=== PATIENT | female | born 1995 | race Caucasian/White ===

== ENCOUNTER → 2023-09-22 10:05 | Outpatient (REF) | payer OTHER, SELFPAY | LOC: RAD 10:05 | PROVIDERS: ATTENDING PHYSICIAN Internal Medicine Rheumatology; FAMILY PHYSICIAN Physician Assistant Medical | DX: Z13.820 Encounter for screening for osteoporosis (principal) | CPT/HCPCS: 77080 ==

== ENCOUNTER → 2023-10-13 06:36 | Day surgery (SDC) | payer OTHER, SELFPAY | LOC: GI 06:36 | PROVIDERS: ATTENDING PHYSICIAN Internal Medicine Gastroenterology; FAMILY PHYSICIAN Physician Assistant Medical | DX: K50.819 Crohn's disease of both small and large intestine with unspecified complications (principal); K90.0 Celiac disease; K52.89 Other specified noninfective gastroenteritis and colitis; K29.50 Unspecified chronic gastritis without bleeding | CPT/HCPCS: 45380; 43239; 88305; 88342 ==

== ENCOUNTER 2024-01-15 06:50 | Emergency (ER) | payer OTHER, SELFPAY ==
[2024-01-15 06:53] VITALS: BP 122/82
[2024-01-15] MEDS: MORPHINE SULFATE 4 MG IV (07:59)
--- NOTE | 2024-01-15 08:04 | ED.GENMED ---
History of Present Illness
<Alphonso Garibay PA-C - Last Filed: 01/15/24 14:36>
General
Chief Complaint: Back Pain
Source: patient
Exam Limitations: none
Time Seen by Provider: 01/15/24 07:22
History of Present Illness
History of Present Illness:
28-year-old female with history of Crohn's disease on Remicade infusions every 6 weeks. Last infusion was almost 3 weeks ago. She also has chronic joint pain. She presents with think lower back pain. This has been getting worse over the past 2
weeks. She went to the chiropractor 2 days ago and has had increased pain to the lower back since then. The pain is made worse with motion leaning forward and moving her neck. She notes associated headache and chills. She also notes cough with
green mucus. She does not get fevers. She notes at times difficulty urinating. She denies any leg pain associated with this. No perianal anesthesia.
Past History
<Alphonso Garibay PA-C - Last Filed: 01/15/24 14:36>
Past History
ED Past Medical History: Other (Crohn's disease, celiac, IBS)
ED Past Surgical History: Orthopedic and Other (Bowel surgery)
Social History
Tobacco: Non-smoker
Alcohol: Occasional
Drug: None
Personal: Single
Living: with family
Employment: Employed
Family History
Family History: Other (her dads mother had Juvenile RA, mother has palpitations)
Phy Exam
<Alphonso Garibay PA-C - Last Filed: 01/15/24 14:36>
Physical Exam
Physical Exam:
General: Well-appearing female no acute respiratory distress
HEENT: Normocephalic atraumatic
Heart: Tachycardic but regular
Lungs: Clear no wheeze
Abdomen is soft nontender nondistended
Musculoskeletal exam: The patient is tender to the lower lumbar spine there is mild overlying soft tissue swelling. No overlying erythema. No nuchal rigidity
Skin is warm no rash
Neurologic: Alert and oriented slight tremor noted no meningeal signs
Course
<Alphonso Garibay PA-C - Last Filed: 01/15/24 14:36>
Orders/Labs/Results
Orders:
Orders
01/15/24 07:35
Morphine Sulfate 4 mg IV NOW STA
CR Lumbar Spine 2 Or 3 Views Urgent
Comment:
Reason For Exam: low back pain
01/15/24 07:36
CR Chest - 2 Views Urgent
Comment:
Reason For Exam: cough
01/15/24 07:55
CRP [C-Reactive Protein] Urgent
Complete Blood Count/With Diff Urgent
Comprehensive Metabolic Panel Urgent
Sed Rate [Erythrocyte Sed Rate] Stat
01/15/24 08:34
Morphine Sulfate 8 mg IV NOW STA
01/15/24 08:45
Urinalysis Reflex To Culture Urgent
Date Specimen was Collected: 01/15/24
Time Specimen was Collected: 08:37
Urine Microscopic Reflex Cult Urgent
01/15/24 10:59
diazePAM [Valium Injection] 5 mg IV NOW STA
Abnormal Lab Results
01/15/24 01/15/24
07:55 08:45
Hct 36.7 L %
(37.0-47.0)
MPV 12.5 H fL
(7.4-10.4)
Absolute Monos (auto) 0.7 H 10^3/uL
(0.1-0.6)
Absolute Eos (auto) 0.8 H 10^3/uL
(0-0.7)
Neutrophils % 35.0 L %
(42.2-75.2)
Monocytes % 9.5 H %
(1.7-9.3)
Eosinophils % 11.6 H %
(0-6)
BUN 22 H mg/dl
(7-17)
AST 41 H U/L
(14-36)
Leukocyte Esterase Rfl Trace A
(Negative)
01/15/24 07:55
01/15/24 07:55
Vital Signs
Initial and Last Documented VS:
Initial Vital Signs
Temp Pulse Resp BP Pulse Ox
97.9 F 118 18 122/82 100
01/15/24 06:53 01/15/24 06:53 01/15/24 06:53 01/15/24 06:53 01/15/24 06:53
Last Documented Vital Signs
Temp Pulse Resp BP Pulse Ox
97.9 F 91 18 110/78 99
01/15/24 06:53 01/15/24 13:48 01/15/24 13:48 01/15/24 13:48 01/15/24 13:48
<Brenden Anderson, DO - Last Filed: 01/15/24 14:39>
Orders/Labs/Results
Orders:
Orders
01/15/24 07:35
Morphine Sulfate 4 mg IV NOW STA
CR Lumbar Spine 2 Or 3 Views Urgent
Comment:
Reason For Exam: low back pain
01/15/24 07:36
CR Chest - 2 Views Urgent
Comment:
Reason For Exam: cough
01/15/24 07:55
CRP [C-Reactive Protein] Urgent
Complete Blood Count/With Diff Urgent
Comprehensive Metabolic Panel Urgent
Sed Rate [Erythrocyte Sed Rate] Stat
01/15/24 08:34
Morphine Sulfate 8 mg IV NOW STA
01/15/24 08:45
Urinalysis Reflex To Culture Urgent
Date Specimen was Collected: 01/15/24
Time Specimen was Collected: 08:37
Urine Microscopic Reflex Cult Urgent
01/15/24 10:59
diazePAM [Valium Injection] 5 mg IV NOW STA
Abnormal Lab Results
01/15/24 01/15/24
07:55 08:45
Hct 36.7 L %
(37.0-47.0)
MPV 12.5 H fL
(7.4-10.4)
Absolute Monos (auto) 0.7 H 10^3/uL
(0.1-0.6)
Absolute Eos (auto) 0.8 H 10^3/uL
(0-0.7)
Neutrophils % 35.0 L %
(42.2-75.2)
Monocytes % 9.5 H %
(1.7-9.3)
Eosinophils % 11.6 H %
(0-6)
BUN 22 H mg/dl
(7-17)
AST 41 H U/L
(14-36)
Leukocyte Esterase Rfl Trace A
(Negative)
01/15/24 07:55
01/15/24 07:55
Vital Signs
Initial and Last Documented VS:
Initial Vital Signs
Temp Pulse Resp BP Pulse Ox
97.9 F 118 18 122/82 100
01/15/24 06:53 01/15/24 06:53 01/15/24 06:53 01/15/24 06:53 01/15/24 06:53
Last Documented Vital Signs
Temp Pulse Resp BP Pulse Ox
97.9 F 91 18 110/78 99
01/15/24 06:53 01/15/24 13:48 01/15/24 13:48 01/15/24 13:48 01/15/24 13:48
Billlt;Alphonso Garibay PA-C - Last Filed: 01/15/24 14:36>
MDM/Problems Addressed
Differential Diagnosis Includes:
Patient with lower back pain cough chills. Consider viral illness versus lumbar strain. Will check for pneumonia with chest x-ray x-rays lumbar spine pending as well. Patient overall nontoxic do not suspect meningitis. No signs of cauda equina.
Labs pending including inflammatory markers urinalysis.
<Alphonso Garibay PA-C - Last Filed: 01/15/24 14:36>
*Critical Care Note
Total Time (30-74mins, 75-104mins- exclusive of procedures): Not Applicable
<Alphonso Garibay PA-C - Last Filed: 01/15/24 14:36>
Update Note
Update Note:
Patient reevaluated multiple times. Inflammatory markers negative x-ray of chest and back negative. Urinalysis negative. Patient overall nontoxic no meningeal signs no need for lumbar puncture. Discussed with emergency room attending saw the
patient as well. Lumbar strain or spasm as source of discomfort. Will add Valium to her regimen. Stable for discharge with follow-up
ED Attending Note
<Alphonso Garibay PA-C - Last Filed: 01/15/24 14:36>
-
Portions of this chart may have been created with voice recognition software.� Occasional wrong word or��sound alike� substitutions may have occurred due to the inherent limitations of voice recognition software.
<Brenden Anderson DO - Last Filed: 01/15/24 14:39>
ED Attending Note
Patient seen and examined by attending physician: Yes
I performed a history and physical exam of patient and discussed management with resident, I reviewed resident's note and agree with documented findings and plan of care.: Yes
ED Attending Note:
Patient is a most unfortunate 28-year-old female with a medical history of Crohn's disease and undiagnosed joint pains as well as chronic pain requiring chronic narcotic use and presents with increasing low back pain over the past few weeks but
worse over the past 2 days. Patient states he gets worse with sitting forward and bending. Patient denies incontinence. Patient denies radiation of the pain into her lower extremities. Patient denies numbness or paresthesias. Patient denies
fever or chills. Patient denies any GI or symptoms. Patient's workup is essentially unremarkable. On physical exam patient is mildly tender in the L4 L5-S1 region. Patient's hips are full range of motion. Patient's neurology exam is
unremarkable. As is her heart, lungs and abdomen exam. Labs reviewed. As well as x-rays. Patient be treated symptomatically and referred back to her doctor and her doctor for rare diseases that she is to see in [place].
Discharge Plan
Departure
Patient Disposition: Home (Routine Discharge)
Date of Disposition: 01/15/24
Time of Disposition: 14:33
Patient with high blood pressure during this ER visit?: No
Discharge Problem:
Low back pain
Instructions: Low Back Pain (DC)
Prescriptions:
New
diazepam [Valium] 5 mg tablet
5 mg PO TID PRN (Reason: muscle spasm) Qty: 10 0RF
No Action
oxycodone 10 mg Tablet
10 mg PO 5/D PRN (Reason: severe pain)
clonazepam 1 mg Tablet
2 mg PO BID@1130,2000
Patient Comments:
pdmp pick up operator on 01/10/24 #60
fexofenadine [Darline] 180 mg Tablet
360 mg PO QPM
acetaminophen [Tylenol Extra Strength] 500 mg Tablet
1,000 mg PO Q6HPRN PRN (Reason: mild pain)
famotidine [Pepcid] 20 mg Tablet
10 mg PO HS
ascorbic acid (vitamin C) [Vitamin C] 500 mg Tablet
500 mg PO DAILY
infliximab [Remicade] 100 mg Recon Soln
7.5 mg IV Q6W
gabapentin 300 mg Capsule
300 mg PO QID
hydroxyzine pamoate 25 mg capsule
25 mg PO QID
duloxetine [Cymbalta] 30 mg Capsule,Delayed Release(Dr/Ec)
30 mg PO DAILY
Rx Instructions:
take with 60mg
duloxetine [Cymbalta] 60 mg Capsule,Delayed Release(Dr/Ec)
60 mg PO DAILY
Rx Instructions:
take with 30mg
melatonin 10 mg Tablet
10 mg PO HS
oxycodone [OxyContin] 10 mg Tablet,Oral Only,Ext.Rel.12 Hr
10 mg PO QPM
Patient Comments:
patient pick up operator #15 on 01/10/24 only one a day
Referrals:
Nadege Dyson PA [Family Provider] -
Activity Restrictions/Additional Instructions:
Continue with 6-month ice or heat to the back. Use current pain medication. You may use Valium if needed for spasm. Follow-up with your treating physicians. Return if worse otherwise
Interventions
Interventions:
*Risk Screen - Suicide Last Done: 01/15/24 08:50
*General Assessment Last Done: 01/15/24 06:53
*Neglect/Abuse Screening Last Done: 01/15/24 08:50
ED- Fall Risk Assessment Last Done: 01/15/24 08:50
*ED COVID-19 Vaccine History Last Done: 01/15/24 06:53
ED-Musculoskeletal Assessment Last Done: 01/15/24 08:50
Discharge Date and Time
Print Language: KOSOVAN
[2024-01-15 08:27] LABS: ALT (SGPT) 30 U/L (0-35); AST (SGOT) 41 U/L (14-36); Albumin 4.2 g/dl (3.5-5.0); Alkaline Phosphatase 82 U/L (38-126); Blood Urea Nitrogen 22 mg/dl (7-17); Calcium 9.1 mg/dl (8.4-10.2); Carbon Dioxide 27 mmol/L (22-30); Chloride 102 mmol/L (98-107); Glucose 87 mg/dl (70-99); Potassium 3.9 mmol/L (3.5-5.1); Sodium 138 mmol/L (135-145); Total Protein 7.5 g/dl (6.3-8.2); eGFR > 60.00
[2024-01-15 08:32] LABS: % Basophils 0.4 % (0-2); % Eosinophils 11.6 % (0-6); % Immature Granulocytes 0.1 % (0-0.5); % Lymphocytes 43.4 % (20.5-51.1); % Monocytes 9.5 % (1.7-9.3); Absolute Eosinophils 0.8 10^3/uL (0-0.7); Absolute Monocytes 0.7 10^3/uL (0.1-0.6); Absolute Neutrophils 2.4 10^3/uL (1.4-6.5); Hematocrit 36.7 % (37.0-47.0); Mean Corp Hgb Conc. 35.4 g/dL (33.0-37.0); Mean Corpuscular Hgb 28.9 pg (27.0-31.0); Mean Corpuscular Volume 81.6 fL (81.0-99.0); Nucleated Red Blood Cells % 0 %; Red Cell Dist. Width 13.2 % (11.5-14.5); White Blood Cell Count 6.8 10^3/uL (4.8-10.8)
[2024-01-15 08:39] LABS: C-Reactive Protein < 5.00 mg/L (0.0-10.00)
[2024-01-15] MEDS: MORPHINE SULFATE 8 MG IV (08:40)
[2024-01-15 08:50] VITALS: BP 108/71
[2024-01-15 09:12] LABS: Urine Albumin Negative (Neg - Trace); Urine Bilirubin Negative (Negative); Urine Character Clear (Clear); Urine Color Yellow; Urine Glucose Negative (Negative); Urine Ketone Negative (Negative); Urine Leukocyte Trace (Negative); Urine Nitrite Negative (Negative); Urine Occult Blood Negative (Negative); Urine Urobilinogen Negative (Neg - 1+)
[2024-01-15 09:15] LABS: Erythrocyte Sed Rate 16 mm/hour (0-20)
[2024-01-15 09:17] LABS: Mean Platelet Volume 12.5 fL (7.4-10.4); Platelet Count 229 10^3/uL (130-400)
[2024-01-15 09:54] LABS: Urine Red Blood Cell None Seen /HPF (0-2); Urine Squamous Cell 16-20 /LPF (Few)
[2024-01-15 11:00] VITALS: BP 108/70
[2024-01-15] MEDS: VALIUM INJECTION 5 MG IV (11:07)
--- NOTE | 2024-01-15 13:08 | EDRN ---
Pt requesting more pain medication, PAC made aware and would like the patient to take her home PO pain medications. Pt taking 300mg of gabapentin and 10 mg of oxycodone
[2024-01-15 13:48] VITALS: BP 110/78
[2024-01-15 14:43] VITALS: BP 109/87
== END 2024-01-15 14:51 | disposition home or self-care (01) ==
LOC: EMR 06:50
PROVIDERS: Physician Assistant; EMERGENCY PHYSICIAN Emergency Medicine; FAMILY PHYSICIAN Physician Assistant Medical
DX: M54.50 Low back pain, unspecified (principal); R05.9 Cough, unspecified; K50.90 Crohn's disease, unspecified, without complications; G89.29 Other chronic pain
CPT/HCPCS: 99284; 96374; 96375; 96376; 71046; 72100; 80053; 81003; 81015; 85025; 85652; 86140

== ENCOUNTER → 2024-02-25 12:19 | Outpatient (REF) | payer OTHER, SELFPAY | LOC: MRI 3T 12:19 | PROVIDERS: ATTENDING PHYSICIAN Internal Medicine Gastroenterology; FAMILY PHYSICIAN Physician Assistant Medical | DX: K50.90 Crohn's disease, unspecified, without complications (principal) | CPT/HCPCS: 74183; A9585 ==

== ENCOUNTER 2024-02-26 19:45 | Emergency (ER) | payer OTHER, SELFPAY ==
[2024-02-26] VITALS (7 sets, daily range): BP systolic 103–121; BP diastolic 65–91; BMI 25.4
--- NOTE | 2024-02-26 20:17 | ED.GENMED ---
History of Present Illness
General
Chief Complaint: Dehydration Symptoms
Source: patient
Exam Limitations: none
Time Seen by Provider: 02/26/24 19:57
History of Present Illness
History of Present Illness:
See MDM
Past History
Past History
ED Past Medical History: Other (Crohn's disease, celiac, IBS)
ED Past Surgical History: Orthopedic and Other (Bowel surgery)
Social History
Tobacco: Non-smoker
Alcohol: Occasional
Drug: None
Personal: Single
Living: with family
Employment: Employed
Family History
Family History: Other (her dads mother had Juvenile RA, mother has palpitations)
Phy Exam
Physical Exam
Physical Exam:
See MDM
Course
Orders/Labs/Results
Orders:
Orders
02/26/24 20:14
0.9% Sodium Chloride 1000 ml [Nss] 1,000 ml IV BOLUS
Morphine Sulfate 8 mg IV NOW STA
Test Result ONCE
02/26/24 20:15
0.9% Sodium Chloride 1000 ml [Nss] 1,000 ml IV BOLUS
02/26/24 20:49
Complete Blood Count/With Diff Urgent
Comprehensive Metabolic Panel Urgent
HCG, Serum Qualitative Screen Urgent
02/26/24 21:06
Morphine Sulfate 8 mg IV NOW STA
02/26/24 23:08
0.9% Sodium Chloride 1000 ml [Nss] 1,000 ml IV BOLUS
HYDROmorphone [Dilaudid] 1 mg IV NOW STA
02/27/24 01:22
HYDROmorphone [Dilaudid] 1 mg IV NOW STA
Abnormal Lab Results
02/26/24
20:49
Hct 35.5 L %
(37.0-47.0)
MCV 79.1 L fL
(81.0-99.0)
MPV 11.5 H fL
(7.4-10.4)
Neutrophils % 37.6 L %
(42.2-75.2)
Eosinophils % 10.9 H %
(0-6)
02/26/24 20:49
02/26/24 20:49
Vital Signs
Initial and Last Documented VS:
Initial Vital Signs
Temp Pulse Resp BP Pulse Ox
99 F 121 22 112/71 97
02/26/24 19:49 02/26/24 19:49 02/26/24 19:49 02/26/24 19:49 02/26/24 19:49
Last Documented Vital Signs
Temp Pulse Resp BP Pulse Ox
97.9 F 89 16 103/65 97
02/26/24 23:56 02/26/24 23:56 02/26/24 23:56 02/26/24 23:56 02/26/24 23:56
MDM/Problems Addressed
Differential Diagnosis Includes:
HPI and MDM Narrative:
29-year-old female presenting with concern for dehydration. She has active Crohn's disease as she received an MRI yesterday. Soon after drinking the contrast, she had several hours of diarrhea. The diarrhea has since resolved but this has flared
her chronic joint pain. Her oxycodone and OxyContin are not helping. She has decreased p.o. intake. She believes she could benefit from IV fluids
Physical exam
General: Well appearing and non-toxic
HEENT: protecting airway. Dry mucous membranes
Neck: appears supple
CV: No evidence of cyanosis
Resp: No accessory muscle use
Abd: Non-distended. No significant tenderness noted
Extremities: No deformities
Neuro: alert
Psych: Normal affect
Skin: Intact
Problems Addressed including Acute and Chronic Conditions affecting care:
1. Dehydration
Acuity: acute
Prognosis: stable
Details: Likely in setting of diarrhea. Will give IV fluids
2. Joint pain
Acuity: acute on chronic
Prognosis: stable
Details: Will give morphine. She is not narcotic na�ve
Updates
On multiple reassessments, patient feeling somewhat better. Eventually after multiple doses of pain medicine and fluids, she feels comfortable going home
Differential Diagnosis (but not limited to): Dehydration, acute on chronic pain
Testing considered: Urinalysis and health
Drug therapy (if applicable): OTC meds, please see d/c instruction regarding Rx drugs
Amount and/or Complexity of Data Reviewed
Clinical info obtained from: Patient
External data reviewed: N/A
Labs I independently reviewed (but not limited to): White blood cell count normal
Radiology: N/A
Pulse Ox: not hypoxic
EKG independently reviewed: N/A
Distance Education Faculty Liaison: N/A
Critical Care: N/A
Risk of Complication:
Social Determinants of health: Good social support
Discussed with other providers: N/A
Escalation of Care includes Admit/Obs: After being observed in the Emergency Department, pt stable for discharge.
Occasional wrong word or 'sound a like' substitutions may have occurred due to the inherent limitations of voice recognition software. Read the chart carefully and recognize, using context, where substitutions have occurred.
*Critical Care Note
Total Time (30-74mins, 75-104mins- exclusive of procedures): Not Applicable
ED Attending Note
-
Portions of this chart may have been created with voice recognition software.� Occasional wrong word or��sound alike� substitutions may have occurred due to the inherent limitations of voice recognition software.
Discharge Plan
Departure
Patient Disposition: Home (Routine Discharge)
Date of Disposition: 02/27/24
Time of Disposition: 01:22
Patient with high blood pressure during this ER visit?: No
Discharge Problem:
Acute dehydration
Instructions: Dehydration, Adult (DC)
Prescriptions:
No Action
oxycodone 10 mg Tablet
10 mg PO 5/D PRN (Reason: severe pain)
clonazepam 1 mg Tablet
2 mg PO BID@1130,1999
Patient Comments:
pdmp shrimp picker on 01/10/24 #60
fexofenadine [Darline] 180 mg Tablet
360 mg PO QPM
acetaminophen [Tylenol Extra Strength] 500 mg Tablet
1,000 mg PO Q6HPRN PRN (Reason: mild pain)
famotidine [Pepcid] 20 mg Tablet
10 mg PO HS
ascorbic acid (vitamin C) [Vitamin C] 500 mg Tablet
500 mg PO BID
infliximab [Remicade] 100 mg Recon Soln
7.5 mg IV Q6W
gabapentin 300 mg Capsule
300 mg PO QID
hydroxyzine pamoate 25 mg capsule
25 mg PO QID
duloxetine [Cymbalta] 30 mg Capsule,Delayed Release(Dr/Ec)
30 mg PO DAILY
Rx Instructions:
take with 60mg
duloxetine [Cymbalta] 60 mg Capsule,Delayed Release(Dr/Ec)
60 mg PO DAILY
Rx Instructions:
take with 30mg
melatonin 10 mg Tablet
10 mg PO HS
oxycodone [OxyContin] 10 mg Tablet,Oral Only,Ext.Rel.12 Hr
10 mg PO QPM
Patient Comments:
patient shrimp picker #15 on 01/10/24 only one a day
vitamin A 3,000 mcg (10,000 unit) Capsule
3,000 mcg PO HS
Referrals:
Nadege Dyson PA [Family Provider] -
Activity Restrictions/Additional Instructions:
Please return for any worsening symptoms.
You may return at any time if you have further concerns.
Please follow up with your doctor at the first available appointment, preferably this week.
Thank you for choosing [facility].
Interventions
Interventions:
*Risk Screen - Suicide Last Done: 02/26/24 19:49
*General Assessment Last Done: 02/26/24 21:54
*Neglect/Abuse Screening Last Done: 02/26/24 19:49
ED- Fall Risk Assessment Last Done: 02/26/24 21:00
*ED COVID-19 Vaccine History Last Done: 02/26/24 19:49
ED- Cardiac Assessment Last Done: 02/26/24 21:00
ED- Neurological Assessment Last Done: 02/26/24 21:00
ED- Pulmonary Assessment Last Done: 02/26/24 21:00
Discharge Date and Time
Print Language: INDIAN
[2024-02-26] MEDS: NSS 1000 IV ×3 (20:41→23:48)
[2024-02-26] MEDS: MORPHINE SULFATE 8 MG IV ×2 (20:44→21:14)
[2024-02-26 20:56] LABS: % Basophils 0.5 % (0-2); % Eosinophils 10.9 % (0-6); % Immature Granulocytes 0.2 % (0-0.5); % Lymphocytes 41.6 % (20.5-51.1); % Monocytes 9.2 % (1.7-9.3); % Neutrophils 37.6 % (42.2-75.2); Absolute Eosinophils 0.7 10^3/uL (0-0.7); Absolute Lymphocytes 2.7 10^3/uL (1.2-3.4); Absolute Monocytes 0.6 10^3/uL (0.1-0.6); Absolute Neutrophils 2.4 10^3/uL (1.4-6.5); Hematocrit 35.5 % (37.0-47.0); Hemoglobin 13.1 g/dL (12.0-16.0); Mean Corp Hgb Conc. 36.9 g/dL (33.0-37.0); Mean Corpuscular Hgb 29.2 pg (27.0-31.0); Mean Corpuscular Volume 79.1 fL (81.0-99.0); Mean Platelet Volume 11.5 fL (7.4-10.4); Nucleated Red Blood Cells % 0 %; Platelet Count 205 10^3/uL (130-400); Red Blood Cell Count 4.49 10^6/uL (4.20-5.40); Red Cell Dist. Width 13.2 % (11.5-14.5); White Blood Cell Count 6.4 10^3/uL (4.8-10.8)
[2024-02-26 21:07] LABS: HCG, Serum Qualitative Screen Negative
[2024-02-26 21:09] LABS: ALT (SGPT) 20 U/L (0-35); AST (SGOT) 29 U/L (14-36); Albumin 3.7 g/dl (3.5-5.0); Alkaline Phosphatase 80 U/L (38-126); Blood Urea Nitrogen 10 mg/dl (7-17); Calcium 8.8 mg/dl (8.4-10.2); Carbon Dioxide 27 mmol/L (22-30); Chloride 104 mmol/L (98-107); Estimated Creatinine Clearance 103 ml/min; Glucose 88 mg/dl (70-99); Potassium 3.6 mmol/L (3.5-5.1); Sodium 140 mmol/L (135-145); Total Bilirubin 0.9 mg/dl (0.2-1.3); Total Protein 6.8 g/dl (6.3-8.2); eGFR > 60.00
[2024-02-26] MEDS: DILAUDID 1 MG IV (23:46)
[2024-02-27] MEDS: DILAUDID 1 MG IV (01:54)
[2024-02-27 02:00] VITALS: BP 108/68
[2024-02-27 02:08] VITALS: BP 108/68
== END 2024-02-27 02:00 | disposition home or self-care (01) ==
LOC: EMR 19:45
PROVIDERS: EMERGENCY PHYSICIAN Student in an Organized Health Care Education/Training Program; FAMILY PHYSICIAN Physician Assistant Medical
DX: R19.7 Diarrhea, unspecified (principal); E86.0 Dehydration; M25.50 Pain in unspecified joint; K50.90 Crohn's disease, unspecified, without complications; G89.29 Other chronic pain; K90.0 Celiac disease; K58.9 Irritable bowel syndrome, unspecified; Z91.012 Allergy to eggs; Z91.018 Allergy to other foods; Z91.013 Allergy to seafood; Z88.8 Allergy status to other drugs, medicaments and biological substances
CPT/HCPCS: 99284; 96374; 96375; 96361 ×3; 96376 ×2; 80053; 84703; 85025

== ENCOUNTER 2024-02-28 14:13 | Emergency (ER) | payer OTHER, SELFPAY ==
[2024-02-28] VITALS (9 sets, daily range): BP systolic 94–125; BP diastolic 65–87
--- NOTE | 2024-02-28 16:13 | ED.GENMED ---
History of Present Illness
General
Chief Complaint: Abdominal Symptoms
Source: patient
Time Seen by Provider: 02/28/24 15:40
History of Present Illness
History of Present Illness:
This patient is a 29-year-old female who states that she had an MRI on February 24 for which she had to drink barium. She has had barium in the past but she has never had to drink this type of barium which is clear. After the procedure she
describes having clear diarrhea, profusely, for about 90 minutes. This was without blood or mucus. The diarrhea resolved but she noted that since then she has had an increase in her typical chronic diffuse joint pain. Of note, patient takes
narcotics for this pain every day, and despite these meds, her pain has been much worse. She also states she feels 'dehydrated', describes his lips being dry, feeling shaky with a mild headache. She came to the ED on Wednesday and was given several
liters of normal saline as well as narcotics for pain and felt much better. She felt well yesterday. Then, today, she again started to note worsening of her chronic joint pain associated with feeling a little lightheaded at times and like her
belly is distended. She is tolerating eating and drinking and states that she has been focusing on drinking a lot of liquids today. She is urinating without difficulty. She denies diarrhea, bleeding or black stool. She had a soft bowel movement
today. She denies fever.
Past History
Past History
ED Past Medical History: Other (Crohn's disease, celiac, IBS, anxiety)
ED Past Surgical History: Orthopedic and Other (Bowel surgery)
Social History
Tobacco: Non-smoker
Alcohol: Occasional
Drug: None
Personal: Other (Engage)
Living: with family
Employment: Employed
Family History
Family History: Other (her dads mother had Juvenile RA, mother has palpitations)
Phy Exam
Physical Exam
Physical Exam:
GENERAL: Alert , in no apparent distress
EYE: pupils equal and reactive
NECK: Supple, no significant adenopathy.
ENT: o/p clr, mmm.
CARDIAC: Regular rate and rhythm .
LUNGS: Clear breath sounds bilaterally, no acute respiratory distress, no wheezes/rales/rhonchi
ABDOMEN: Soft, without focal tenderness, no r/g, no cvat
NEUROLOGICAL: Alert and oriented, no focal neuro deficits
SKIN: Warm and dry, skin intact.
MUSCULOSKELETAL: No edema, well perfused. No joint redness, warmth, swelling noted range of motion full
PSYCH: Normal and appropriate interaction.
Course
Orders/Labs/Results
Orders:
Orders
02/28/24 16:13
0.9% Sodium Chloride 1000 ml [Nss] 1,000 ml IV BOLUS
Ketorolac [Toradol] 15 mg IV NOW STA
02/28/24 16:22
Complete Blood Count/No Diff Urgent
Comprehensive Metabolic Panel Urgent
Lipase Urgent
02/28/24 19:37
0.9% Sodium Chloride 1000 ml [Nss] 1,000 ml IV BOLUS
02/28/24 20:17
HYDROmorphone [Dilaudid] 1 mg IV NOW STA
02/28/24 22:39
HYDROmorphone [Dilaudid] 1 mg IV NOW STA
Abnormal Lab Results
02/28/24
16:22
Hct 34.8 L %
(37.0-47.0)
MCV 80.4 L fL
(81.0-99.0)
MPV 11.2 H fL
(7.4-10.4)
02/28/24 16:22
02/28/24 16:22
Vital Signs
Initial and Last Documented VS:
Initial Vital Signs
Temp Pulse Resp BP Pulse Ox
98.5 F 121 20 125/76 97
02/28/24 14:15 02/28/24 14:15 02/28/24 14:15 02/28/24 14:15 02/28/24 14:15
Last Documented Vital Signs
Temp Pulse Resp BP Pulse Ox
98.5 F 109 20 110/76 99
02/28/24 14:15 02/28/24 16:00 02/28/24 16:00 02/28/24 20:00 02/28/24 20:30
*Critical Care Note
Total Time (30-74mins, 75-104mins- exclusive of procedures): Not Applicable
Update Note
Update Note:
Patient presents to the Emergency Department with ___feeling 'dehydrated' with worsening joint pain
Number and Complexity of Problems Addressed at the Encounter
� Chronic conditions affecting care:
� Acute Exacerbation and/or Progression of Chronic Illness:
� Differential Diagnosis includes: But not limited to exacerbation of chronic pain, reaction to barium or other medication, electrolyte disorder, etc.
Amount and/or Complexity of Data to be Reviewed and Analyzed
� I performed an independent evaluation of and my interpretation is:
EKG:
CT:
Xrays:
Laboratory Studies:Unremarkable
Other:
� Review of other/old records reveals:
� Clinical information was obtained by an independent historian:
� Prescriptions/Medications Considered but not given:
� Further testing considered but not performed:
Risk of Complications and/or Morbidity or Mortality of Patient Management
� Social determinants of health affecting care:
� Discussion with other providers (PCP, Hospitalists, Consultants, etc):
� Escalation of care including admission/observation vs risk of discharge considered: Extended stay in ED with multiple reassessments by me. She is eating and drinking here, interacting with fiancee, walks to bathroom with
ease...and has continued worsening of her typical joint pain. I did d/w her narctoci respon policy. I then contacted her pain mangement doctor, dr Gomez, who knows pt well. Long discussion...he reports long standing hx of joint pain, unclear
etiology, and compliance with meds. Unclear why worse now, however does recommend treating with IV dilaudid and he will see in AM to readjust her chronic meds. I gave her one dose, she felt better, then pain again and requestnig before she goes
home. Pt aware she will need to see Dr Gomez for further pain management.
ED Attending Note
-
Portions of this chart may have been created with voice recognition software.� Occasional wrong word or��sound alike� substitutions may have occurred due to the inherent limitations of voice recognition software.
Discharge Plan
Departure
Patient Disposition: Home (Routine Discharge)
Date of Disposition: 02/28/24
Time of Disposition: 22:48
Patient with high blood pressure during this ER visit?: Yes
Condition: Good
Discharge Problem:
Joint pain
Instructions: Joint Pain, BLOOD PRESSURE
Prescriptions:
No Action
oxycodone 10 mg Tablet
10 mg PO 5/D PRN (Reason: severe pain)
clonazepam 1 mg Tablet
2 mg PO BID@1130,1999
Patient Comments:
pdmp citrus picker on 01/10/24 #60
fexofenadine [Darline] 180 mg Tablet
360 mg PO QPM
acetaminophen [Tylenol Extra Strength] 500 mg Tablet
1,000 mg PO Q6HPRN PRN (Reason: mild pain)
famotidine [Pepcid] 20 mg Tablet
10 mg PO HS
ascorbic acid (vitamin C) [Vitamin C] 500 mg Tablet
500 mg PO BID
infliximab [Remicade] 100 mg Recon Soln
7.5 mg IV Q6W
gabapentin 300 mg Capsule
300 mg PO QID
hydroxyzine pamoate 25 mg capsule
25 mg PO QID
duloxetine [Cymbalta] 30 mg Capsule,Delayed Release(Dr/Ec)
30 mg PO DAILY
Rx Instructions:
take with 60mg
duloxetine [Cymbalta] 60 mg Capsule,Delayed Release(Dr/Ec)
60 mg PO DAILY
Rx Instructions:
take with 30mg
melatonin 10 mg Tablet
10 mg PO HS
oxycodone [OxyContin] 10 mg Tablet,Oral Only,Ext.Rel.12 Hr
10 mg PO QPM
Patient Comments:
patient citrus picker #15 on 01/10/24 only one a day
vitamin A 3,000 mcg (10,000 unit) Capsule
3,000 mcg PO HS
Referrals:
Nadege Dyson PA [Family Provider] -
Activity Restrictions/Additional Instructions:
SEE YOUR PAIN MANAGEMENT DOCTOR (DR GOMEZ) THIS MORNING FOR FURTHER MANAGEMENT.
Interventions
Interventions:
*Risk Screen - Suicide Last Done: 02/28/24 16:00
*General Assessment Last Done: 02/28/24 16:00
*Neglect/Abuse Screening Last Done: 02/28/24 16:00
DX-Yowmlr-Ouvbzjftey Assessment Last Done: 02/28/24 16:00
Discharge Date and Time
Print Language: UPPER SORBIAN
[2024-02-28] MEDS: NSS 1000 IV ×2 (16:29→19:41)
[2024-02-28] MEDS: TORADOL 15 MG IV (16:29)
[2024-02-28 16:37] LABS: Hematocrit 34.8 % (37.0-47.0); Hemoglobin 12.6 g/dL (12.0-16.0); Mean Corp Hgb Conc. 36.2 g/dL (33.0-37.0); Mean Corpuscular Hgb 29.1 pg (27.0-31.0); Mean Corpuscular Volume 80.4 fL (81.0-99.0); Mean Platelet Volume 11.2 fL (7.4-10.4); Platelet Count 202 10^3/uL (130-400); Red Blood Cell Count 4.33 10^6/uL (4.20-5.40); Red Cell Dist. Width 13.2 % (11.5-14.5); White Blood Cell Count 7.2 10^3/uL (4.8-10.8)
[2024-02-28 16:52] LABS: ALT (SGPT) 21 U/L (0-35); AST (SGOT) 32 U/L (14-36); Albumin 3.8 g/dl (3.5-5.0); Alkaline Phosphatase 90 U/L (38-126); Blood Urea Nitrogen 13 mg/dl (7-17); Calcium 8.9 mg/dl (8.4-10.2); Carbon Dioxide 28 mmol/L (22-30); Chloride 105 mmol/L (98-107); Glucose 90 mg/dl (70-99); Lipase 127 U/L (23-300); Sodium 142 mmol/L (135-145); Total Bilirubin 1.1 mg/dl (0.2-1.3); Total Protein 6.9 g/dl (6.3-8.2); eGFR > 60.00
[2024-02-28] MEDS: DILAUDID 1 MG IV ×2 (20:38→22:50)
== END 2024-02-28 23:26 | disposition home or self-care (01) ==
LOC: EMR 14:13
PROVIDERS: EMERGENCY PHYSICIAN Emergency Medicine; FAMILY PHYSICIAN Physician Assistant Medical
DX: M25.50 Pain in unspecified joint (principal); R42 Dizziness and giddiness; R03.0 Elevated blood-pressure reading, without diagnosis of hypertension; K50.90 Crohn's disease, unspecified, without complications; K58.9 Irritable bowel syndrome, unspecified; F41.9 Anxiety disorder, unspecified; G89.29 Other chronic pain; K90.0 Celiac disease; Z91.012 Allergy to eggs; Z91.018 Allergy to other foods; Z91.013 Allergy to seafood; Z88.8 Allergy status to other drugs, medicaments and biological substances
CPT/HCPCS: 99284; 96374; 96375; 96361 ×2; 96376; 80053; 83690; 85027

== ENCOUNTER 2024-03-09 18:59 | Emergency (ER) | payer OTHER, SELFPAY ==
[2024-03-09 19:08] VITALS: BP 111/76
[2024-03-09 20:33] VITALS: BMI 26.5
[2024-03-09 21:18] LABS: Urine Albumin Negative (Neg - Trace); Urine Bilirubin Negative (Negative); Urine Character Clear (Clear); Urine Color Yellow; Urine Glucose Negative (Negative); Urine Ketone Negative (Negative); Urine Leukocyte Negative (Negative); Urine Nitrite Negative (Negative); Urine Occult Blood Negative (Negative); Urine Specific Gravity 1.005 (<1.030); Urine Urobilinogen Negative (Neg - 1+); Urine pH 6.5 (5.0-9.0)
[2024-03-09 21:46] LABS: % Basophils 0.4 % (0-2); % Eosinophils 7.5 % (0-6); % Immature Granulocytes 0.3 % (0-0.5); % Lymphocytes 29.9 % (20.5-51.1); % Monocytes 8.5 % (1.7-9.3); % Neutrophils 53.4 % (42.2-75.2); Absolute Eosinophils 0.6 10^3/uL (0-0.7); Absolute Lymphocytes 2.4 10^3/uL (1.2-3.4); Absolute Monocytes 0.7 10^3/uL (0.1-0.6); Absolute Neutrophils 4.2 10^3/uL (1.4-6.5); Hematocrit 35.6 % (37.0-47.0); Hemoglobin 12.7 g/dL (12.0-16.0); Mean Corp Hgb Conc. 35.7 g/dL (33.0-37.0); Mean Corpuscular Hgb 28.7 pg (27.0-31.0); Mean Corpuscular Volume 80.4 fL (81.0-99.0); Mean Platelet Volume 11.6 fL (7.4-10.4); Nucleated Red Blood Cells % 0 %; Platelet Count 205 10^3/uL (130-400); Red Blood Cell Count 4.43 10^6/uL (4.20-5.40); Red Cell Dist. Width 13.4 % (11.5-14.5); White Blood Cell Count 7.9 10^3/uL (4.8-10.8)
[2024-03-09 22:01] LABS: ALT (SGPT) 22 U/L (0-35); AST (SGOT) 33 U/L (14-36); Albumin 3.8 g/dl (3.5-5.0); Alkaline Phosphatase 81 U/L (38-126); Blood Urea Nitrogen 15 mg/dl (7-17); Carbon Dioxide 26 mmol/L (22-30); Chloride 102 mmol/L (98-107); Estimated Creatinine Clearance 90 ml/min; Glucose 95 mg/dl (70-99); Potassium 4.4 mmol/L (3.5-5.1); Sodium 140 mmol/L (135-145); eGFR > 60.00
[2024-03-09 22:28] VITALS: BP 105/69
--- NOTE | 2024-03-09 22:39 | ED.GENMED ---
History of Present Illness
General
Chief Complaint: Urinary Symptoms
Source: patient
Exam Limitations: none
Time Seen by Provider: 03/09/24 19:55
Nursing documentation reviewed up to this point in time: agreed with
History of Present Illness
History of Present Illness:
Patient states she has been unable to urinate for the past 24 hours. States she can dribble from time to time but feels full and uncomfortable now. Had a similar incident 1.5yrs ago but situation resolved without intervention. Brought self to ED
for eval. [facility] crohns disease. She is also following rheumatology for chronic joint pain. Takes oxycodone and oxycontin for pain control. Dose of oxycodone was recently increased. Other meds include Klonopin and Vistaril and may have contributed
to todays event
Past History
Past History
ED Past Medical History: Other (Crohn's disease, celiac, IBS, anxiety)
ED Past Surgical History: Orthopedic and Other (Bowel surgery)
Social History
Tobacco: Non-smoker
Alcohol: Occasional
Drug: None
Personal: Other (Engage)
Living: with family
Employment: Employed
Family History
Family History: Other (her dads mother had Juvenile RA, mother has palpitations)
Review of Systems
Review of Systems
Allergies reviewed?: Yes
All Other Systems: ROS reviewed and negative except as documented in HPI and ROS
Constitutional: Reports no symptoms
EENT: Reports no symptoms
Respiratory: Reports no symptoms
Cardiac: Reports no symptoms
ABD/GI: Reports no symptoms
: Reports difficulty voiding
Musculoskeletal: Reports no symptoms
Skin: Reports no symptoms
Neurological: Reports no symptoms
Psychiatric: Reports no symptoms
Phy Exam
General Physical Exam
General Presentation: well appearing and no apparent distress
General age: appears stated age
General Skin: warm and dry
General Habitus: normal
General Mental: alert
Gastrointestinal Exam
Gastrointestinal Exam: non tender
Genitourinary Exam Female
Exam Female: other (Cantor catheter placed bedside by RN, drained immediate 600cc. UA sent, no evidence of UTI)
Musculoskeletal Exam
Musculoskeletal Exam: full ROM
Skin Exam
Skin Exam: normal color, warm/dry and no rash
Psychiatric Exam
Psychiatric Exam: normal mood/affect
Course
Orders/Labs/Results
Orders:
Orders
03/09/24 20:53
Urinalysis Reflex To Culture Urgent
Date Specimen was Collected: 03/09/24
Time Specimen was Collected: 20:49
03/09/24 21:38
Complete Blood Count/With Diff Urgent
Comprehensive Metabolic Panel Urgent
Abnormal Lab Results
03/09/24
21:38
Hct 35.6 L %
(37.0-47.0)
MCV 80.4 L fL
(81.0-99.0)
MPV 11.6 H fL
(7.4-10.4)
Absolute Monos (auto) 0.7 H 10^3/uL
(0.1-0.6)
Eosinophils % 7.5 H %
(0-6)
03/09/24 21:38
03/09/24 21:38
Vital Signs
Initial and Last Documented VS:
Initial Vital Signs
Temp Pulse Resp BP Pulse Ox
99.2 F 120 18 111/76 94
03/09/24 19:08 03/09/24 19:08 03/09/24 19:08 03/09/24 19:08 03/09/24 19:08
Last Documented Vital Signs
Temp Pulse Resp BP Pulse Ox
99.2 F 78 18 105/69 97
03/09/24 19:08 03/09/24 22:28 03/09/24 22:28 03/09/24 22:28 03/09/24 22:28
*Critical Care Note
Total Time (30-74mins, 75-104mins- exclusive of procedures): Not Applicable
Update Note
Update Note:
Patient would like cantor removed and would like to attempt to try to go on own. WIll return if no urine within 12 hours or increasing discomfort. Given number for urology and she will schedule appt for follow up.
ED Attending Note
-
Portions of this chart may have been created with voice recognition software.� Occasional wrong word or��sound alike� substitutions may have occurred due to the inherent limitations of voice recognition software.
Discharge Plan
Departure
Patient Disposition: Home (Routine Discharge)
Date of Disposition: 03/09/24
Time of Disposition: 22:15
Patient with high blood pressure during this ER visit?: No
Condition: Good
Covid-19: Not Applicable
Discharge Problem:
Acute urinary retention
Instructions: Urinary retention - Discharge instructions
Prescriptions:
No Action
oxycodone 10 mg Tablet
10 mg PO 5/D PRN (Reason: severe pain)
clonazepam 1 mg Tablet
2 mg PO BID@1130,2000
Patient Comments:
pdmp picker tender helper on 01/10/24 #60
fexofenadine [Darline] 180 mg Tablet
360 mg PO QPM
acetaminophen [Tylenol Extra Strength] 500 mg Tablet
1,000 mg PO Q6HPRN PRN (Reason: mild pain)
famotidine [Pepcid] 20 mg Tablet
10 mg PO HS
ascorbic acid (vitamin C) [Vitamin C] 500 mg Tablet
500 mg PO BID
infliximab [Remicade] 100 mg Recon Soln
7.5 mg IV Q6W
gabapentin 300 mg Capsule
300 mg PO QID
hydroxyzine pamoate 25 mg capsule
25 mg PO QID
duloxetine [Cymbalta] 30 mg Capsule,Delayed Release(Dr/Ec)
30 mg PO DAILY
Rx Instructions:
take with 60mg
duloxetine [Cymbalta] 60 mg Capsule,Delayed Release(Dr/Ec)
60 mg PO DAILY
Rx Instructions:
take with 30mg
melatonin 10 mg Tablet
10 mg PO HS
oxycodone [OxyContin] 10 mg Tablet,Oral Only,Ext.Rel.12 Hr
10 mg PO QPM
Patient Comments:
patient picker tender helper #15 on 01/10/24 only one a day
vitamin A 3,000 mcg (10,000 unit) Capsule
3,000 mcg PO HS
Referrals:
Nadege Dyson PA [Family Provider] -
Az De Souza Jr., MD [Active] -
Activity Restrictions/Additional Instructions:
Return to the emergency department if you do not pass any urine in the next 10-12 hours
Interventions
Interventions:
*Risk Screen - Suicide Last Done: 03/09/24 19:05
*General Assessment Last Done: 03/09/24 19:05
*Neglect/Abuse Screening Last Done: 03/09/24 19:05
ED- Fall Risk Assessment Last Done: 03/09/24 22:08
*ED COVID-19 Vaccine History Last Done: 03/09/24 19:05
*Nursing Disposition Last Done: 03/09/24 22:30
ED-Female Genitourinary Assessment Last Done: 03/09/24 22:08
Discharge Date and Time
Discharge Date/Time: 03/09/24 22:36
Print Language: JAPANESE
== END 2024-03-09 22:36 | disposition home or self-care (01) ==
LOC: EMR 18:59
PROVIDERS: Nurse Practitioner; EMERGENCY PHYSICIAN Student in an Organized Health Care Education/Training Program; FAMILY PHYSICIAN Physician Assistant Medical
DX: R33.9 Retention of urine, unspecified (principal); G89.29 Other chronic pain; K50.90 Crohn's disease, unspecified, without complications; Z79.899 Other long term (current) drug therapy
CPT/HCPCS: 51702; 99283; 80053; 81003; 85025

== ENCOUNTER 2024-03-10 07:29 | Emergency (ER) | payer OTHER, SELFPAY ==
[2024-03-10 07:32] VITALS: BP 101/76
--- NOTE | 2024-03-10 08:15 | ED.GENMED ---
History of Present Illness
General
Chief Complaint: Urinary Symptoms
Source: patient
Exam Limitations: none
Time Seen by Provider: 03/10/24 07:48
Nursing documentation reviewed up to this point in time: agreed with
History of Present Illness
History of Present Illness:
Patient seen in ED last night secondary to urinary retention, presents to ED for evaluation with continual difficulty with urination after being discharged home. Patient did not leave ED with Cantor catheter. Denies fever or chills. Denies
abdominal pain. Denies nausea or vomiting. Patient's medical history is significant for Crohn's disease, which is being treated currently with active inflammation. As such, patient is continuing to have number of loose bowel movements. In
addition, patient recently had an abdominal MRI which showed 'collapsed ileum', and is concerned whether or not this may be contributing to her symptoms. However, patient has had similar intermittent urinary hesitancy/urgency, but never to this
extent. In addition, secondary to increased pain secondary to her flareup, patient is taking increased amount of pain medications, i.e. oxycodone. Denies any new medications recently.
Past History
Past History
ED Past Medical History: Other (Crohn's disease, celiac, IBS, anxiety)
ED Past Surgical History: Orthopedic and Other (Bowel surgery)
Social History
Tobacco: Non-smoker
Alcohol: Occasional
Drug: None
Personal: Other (Engage)
Living: with family
Employment: Employed
Family History
Family History: Other (her dads mother had Juvenile RA, mother has palpitations)
Review of Systems
Review of Systems
Allergies reviewed?: Yes
All Other Systems: ROS reviewed and negative except as documented in HPI and ROS
Constitutional: Reports no symptoms
EENT: Reports no symptoms
Respiratory: Reports no symptoms
Cardiac: Reports no symptoms
ABD/GI: Reports no symptoms
: Reports difficulty voiding
Musculoskeletal: Reports joint pain
Skin: Reports no symptoms
Neurological: Reports no symptoms
Phy Exam
Physical Exam
Physical Exam:
Physical Exam
General: no apparent distress, not acutely ill. afebrile
Head: nc/at. eomi
Neck: supple. normal range of motion
Abdomen: normal bowel sounds. not tender.
Neuro: alert and oriented. no focal neurological deficits
Skin: no rash
Psychiatric: well kept. interactive and cooperative
Extremities: no edema. no calf tenderness.
Course
Orders/Labs/Results
Orders:
Orders
03/10/24 08:11
Cantor Placement- Treatment ONCE
Reason for insertion: Acute Retention
03/10/24 10:01
Urinalysis Reflex To Culture Urgent
Date Specimen was Collected: 03/10/24
Time Specimen was Collected: 07:53
Vital Signs
Initial and Last Documented VS:
Initial Vital Signs
Temp Pulse Resp BP Pulse Ox
98.1 F 85 20 101/76 99
03/10/24 07:32 03/10/24 07:32 03/10/24 07:32 03/10/24 07:32 03/10/24 07:32
Last Documented Vital Signs
Temp Pulse Resp BP Pulse Ox
98.1 F 85 20 101/76 99
03/10/24 07:32 03/10/24 07:32 03/10/24 07:32 03/10/24 07:32 03/10/24 07:32
MDM/Problems Addressed
MDM/Problems Addressed:
Bladder scan : > 290 ml urine. Cantor catheter inserted.
Discussed with ongoing urology, . Recommends discharging patient home with cantor catheter in place. Requests patient contact office for outpatient consultation with (mechanical engineering advisor/urology) as well as office f/u next week for catheter
removal and teaching for intermittent self catheterization at home. Pt expresses understanding at time of discharge.
*Critical Care Note
Total Time (30-74mins, 75-104mins- exclusive of procedures): Not Applicable
ED Attending Note
-
Portions of this chart may have been created with voice recognition software.� Occasional wrong word or��sound alike� substitutions may have occurred due to the inherent limitations of voice recognition software.
Discharge Plan
Departure
Patient Disposition: Home (Routine Discharge)
Date of Disposition: 03/10/24
Time of Disposition: 08:56
Patient with high blood pressure during this ER visit?: No
Condition: Good
Discharge Problem:
Urinary retention
Instructions: How to Care for Your Cantor Catheter, Urinary retention - Discharge instructions
Prescriptions:
No Action
oxycodone 10 mg Tablet
10 mg PO 5/D PRN (Reason: severe pain)
clonazepam 1 mg Tablet
2 mg PO BID@1130,2000
Patient Comments:
pdmp pickle pumper on 01/10/24 #60
fexofenadine [Darline] 180 mg Tablet
360 mg PO QPM
acetaminophen [Tylenol Extra Strength] 500 mg Tablet
1,000 mg PO Q6HPRN PRN (Reason: mild pain)
famotidine [Pepcid] 20 mg Tablet
10 mg PO HS
ascorbic acid (vitamin C) [Vitamin C] 500 mg Tablet
500 mg PO BID
infliximab [Remicade] 100 mg Recon Soln
7.5 mg IV Q6W
gabapentin 300 mg Capsule
300 mg PO QID
hydroxyzine pamoate 25 mg capsule
25 mg PO QID
duloxetine [Cymbalta] 30 mg Capsule,Delayed Release(Dr/Ec)
30 mg PO DAILY
Rx Instructions:
take with 60mg
duloxetine [Cymbalta] 60 mg Capsule,Delayed Release(Dr/Ec)
60 mg PO DAILY
Rx Instructions:
take with 30mg
melatonin 10 mg Tablet
10 mg PO HS
oxycodone [OxyContin] 10 mg Tablet,Oral Only,Ext.Rel.12 Hr
10 mg PO QPM
Patient Comments:
patient pickle pumper #15 on 01/10/24 only one a day
vitamin A 3,000 mcg (10,000 unit) Capsule
3,000 mcg PO HS
Referrals:
Nadege Dyson PA [Family Provider] -
Lonnie Ramirez MD [Active] -
Activity Restrictions/Additional Instructions:
As discussed, please follow-up with referred SUSPECT ARTIST SUPERVISOR/urology for further evaluation and treatment.
Interventions
Interventions:
*Risk Screen - Suicide Last Done: 03/10/24 07:31
*General Assessment Last Done: 03/10/24 07:32
*Neglect/Abuse Screening Last Done: 03/10/24 07:32
ED- Fall Risk Assessment Last Done: 03/10/24 09:45
*ED COVID-19 Vaccine History Last Done: 03/10/24 10:12
*Nursing Disposition Last Done: 03/10/24 09:45
ED-Female Genitourinary Assessment Last Done: 03/10/24 10:16
Discharge Date and Time
Print Language: ITALIAN
[2024-03-10 10:10] LABS: Urine Albumin Negative (Neg - Trace); Urine Bilirubin Negative (Negative); Urine Character Clear (Clear); Urine Color Straw; Urine Glucose Negative (Negative); Urine Ketone Negative (Negative); Urine Leukocyte Negative (Negative); Urine Nitrite Negative (Negative); Urine Occult Blood Negative (Negative); Urine Specific Gravity 1.005 (<1.030); Urine Urobilinogen Negative (Neg - 1+)
== END 2024-03-10 09:45 | disposition home or self-care (01) ==
LOC: EMR 07:29
PROVIDERS: EMERGENCY PHYSICIAN Emergency Medicine; FAMILY PHYSICIAN Physician Assistant Medical
DX: R33.9 Retention of urine, unspecified (principal); K90.0 Celiac disease; K58.9 Irritable bowel syndrome, unspecified; F41.9 Anxiety disorder, unspecified
CPT/HCPCS: 99282; 51702; 81003

== ENCOUNTER 2024-04-26 23:48 | Emergency (ER) | payer OTHER, SELFPAY ==
[2024-04-26 23:50] VITALS: BP 134/85
[2024-04-27 01:09] VITALS: BMI 26.0
[2024-04-27 01:17] VITALS: BP 111/71
--- NOTE | 2024-04-27 01:18 | ED.GENMED ---
History of Present Illness
<FRANDY Morales - Last Filed: 04/27/24 04:38>
General
Chief Complaint: Dental Problem
Source: patient and significant other
Time Seen by Provider: 04/27/24 01:17
History of Present Illness
History of Present Illness:
An ill-appearing 29-year-old female with a past medical history of Crohn's, chronic pain, OCD, urinary retention who presents to the emergency room for increasing facial pain and swelling due to a root canal infection x 12 hours. She states that she
initially went to her primary dentist on Wednesday for tooth pain,which she had been having for about a week, Where he diagnosed her with a tooth infection of her upper left canine with follow-up to body and frame man. Her primary tennis initiated a course of
amoxicillin.She presented to her Endo dentist today for possible root canal. The body and frame man placed a temporary antibiotic impregnated cement into her upper left canine today. Shortly after she started complaining of increasing pain swelling, and
pressure radiating up the left side of her face. She also admits to nausea and chills which began on Wednesday and have worsened throughout the last 48 hours. She denies vision changes, abdominal pain, diarrhea.
She is currently taking Remicade for her Crohn's disease which is well-controlled.
Past History
<FRANDY Morales - Last Filed: 04/27/24 04:38>
Past History
ED Past Medical History: Other (Crohn's disease, celiac, IBS, anxiety)
ED Past Surgical History: Orthopedic and Other (Bowel surgery)
Social History
Tobacco: Non-smoker
Alcohol: Occasional
Drug: None
Personal: Other (Engage)
Living: with family
Employment: Employed
Family History
Family History: Other (her dads mother had Juvenile RA, mother has palpitations)
Review of Systems
<FRANDY Morales - Last Filed: 04/27/24 04:38>
Review of Systems
Allergies reviewed?: Yes
All Other Systems: ROS reviewed and negative except as documented in HPI and ROS
Phy Exam
<FRANDY Morales - Last Filed: 04/27/24 04:38>
General Physical Exam
General Presentation: severe distress
General age: appears stated age
General Skin: warm
General Habitus: normal
General Mental: alert
General Hydration: appears well hydrated
ENT Exam
ENT Exam: EOMI and TM's normal
Eye Exam
Eye Exam: PERRL and EOMI
Cardiovascular Exam
Cardiovascular Exam: regular rate/rhythm, no edema, no gallop, no murmur and normal peripheral pulses
Pulmonary Exam
Pulmonary Exam: lungs clear, no respiratory distress, no rales, no crackles, no rhonchi, no wheezing and no cough
Neurological Exam
Neurological Exam: alert and oriented x3
Musculoskeletal Exam
Musculoskeletal Exam: full ROM
Skin Exam
Skin Exam: other (Moderate swelling and erythema radiating from left upper lip to left eye. Mild edema noted around the left orbit. Dental gingiva upper left canine erythematous)
Psychiatric Exam
Psychiatric Exam: other (in pain)
Sepsis
<FRANDY Morales - Last Filed: 04/27/24 04:38>
Sepsis Screening
Sepsis Assessment: Sepsis Ruled Out
Sepsis Screen
Sepsis Screen: Sepsis Ruled Out
Date: 04/27/24
Time: 04:37
Course
<FRANDY Morales - Last Filed: 04/27/24 04:38>
Orders/Labs/Results
Orders:
Orders
04/27/24 01:59
CT Facial Bones W/ Iv Contrast Urgent
Comment:
Reason For Exam: left facial dental abscess
04/27/24 02:00
0.9% Sodium Chloride 1000 ml [Nss] 1,000 ml IV BOLUS
HYDROmorphone [Dilaudid] 1 mg IV NOW STA
Ketorolac [Toradol] 15 mg IV NOW STA
04/27/24 02:03
Complete Blood Count/With Diff Urgent
Comprehensive Metabolic Panel Urgent
Lactic Acid Q4H
Comment: CANCEL 2nd LACTIC ACID IF 1st LACTIC ACID IS LESS THAN 2
Blood Culture Q30M
DESIRE Source: Blood/Venous
Specimen Description:
04/27/24 02:18
Clindamycin 600 mg/50 ml [Cleocin] 600 mg in 50 ml IV NOW
04/27/24 02:20
Blood Culture Q30M
DESIRE Source: Blood/Venous
Specimen Description:
04/27/24 03:20
Ketorolac [Toradol] 15 mg IV NOW STA
Abnormal Lab Results
04/27/24
02:03
WBC 11.9 H 10^3/uL
(4.8-10.8)
Hct 34.0 L %
(37.0-47.0)
MCV 80.8 L fL
(81.0-99.0)
MPV 10.9 H fL
(7.4-10.4)
Absolute Neuts (auto) 8.5 H 10^3/uL
(1.4-6.5)
Absolute Monos (auto) 1.4 H 10^3/uL
(0.1-0.6)
Lymphocytes % 16.2 L %
(20.5-51.1)
Monocytes % 11.6 H %
(1.7-9.3)
Glucose 114 H mg/dl
(70-99)
Lactic Acid 0.6 L mmol/L
(0.7-2.0)
04/27/24 02:03
04/27/24 02:03
Vital Signs
Initial and Last Documented VS:
Initial Vital Signs
Temp Pulse Resp BP Pulse Ox
99.5 F 138 18 134/85 95
04/26/24 23:50 04/26/24 23:50 04/26/24 23:50 04/26/24 23:50 04/26/24 23:50
Last Documented Vital Signs
Temp Pulse Resp BP Pulse Ox
99.5 F 138 18 99/65 95
04/26/24 23:50 04/26/24 23:50 04/26/24 23:50 04/27/24 03:08 04/27/24 03:45
<Evelyn Trujillo DO - Last Filed: 04/27/24 03:30>
Orders/Labs/Results
Orders:
Orders
04/27/24 01:59
CT Facial Bones W/ Iv Contrast Urgent
Comment:
Reason For Exam: left facial dental abscess
04/27/24 02:00
0.9% Sodium Chloride 1000 ml [Nss] 1,000 ml IV BOLUS
HYDROmorphone [Dilaudid] 1 mg IV NOW STA
Ketorolac [Toradol] 15 mg IV NOW STA
04/27/24 02:03
Complete Blood Count/With Diff Urgent
Comprehensive Metabolic Panel Urgent
Lactic Acid Q4H
Comment: CANCEL 2nd LACTIC ACID IF 1st LACTIC ACID IS LESS THAN 2
Blood Culture Q30M
DESIRE Source: Blood/Venous
Specimen Description:
04/27/24 02:18
Clindamycin 600 mg/50 ml [Cleocin] 600 mg in 50 ml IV NOW
04/27/24 02:20
Blood Culture Q30M
DESIRE Source: Blood/Venous
Specimen Description:
04/27/24 03:20
Ketorolac [Toradol] 15 mg IV NOW STA
Abnormal Lab Results
04/27/24
02:03
WBC 11.9 H 10^3/uL
(4.8-10.8)
Hct 34.0 L %
(37.0-47.0)
MCV 80.8 L fL
(81.0-99.0)
MPV 10.9 H fL
(7.4-10.4)
Absolute Neuts (auto) 8.5 H 10^3/uL
(1.4-6.5)
Absolute Monos (auto) 1.4 H 10^3/uL
(0.1-0.6)
Lymphocytes % 16.2 L %
(20.5-51.1)
Monocytes % 11.6 H %
(1.7-9.3)
Glucose 114 H mg/dl
(70-99)
Lactic Acid 0.6 L mmol/L
(0.7-2.0)
04/27/24 02:03
04/27/24 02:03
Vital Signs
Initial and Last Documented VS:
Initial Vital Signs
Temp Pulse Resp BP Pulse Ox
99.5 F 138 18 134/85 95
04/26/24 23:50 04/26/24 23:50 04/26/24 23:50 04/26/24 23:50 04/26/24 23:50
Last Documented Vital Signs
Temp Pulse Resp BP Pulse Ox
99.5 F 138 18 99/65 95
04/26/24 23:50 04/26/24 23:50 04/26/24 23:50 04/27/24 03:08 04/27/24 03:45
<FRANDY Morales - Last Filed: 04/27/24 04:38>
MDM/Problems Addressed
Differential Diagnosis Includes:
Possible sepsis, maxillary abscess,
<Evelyn Trujillo DO - Last Filed: 10/31/24 03:30>
*Radiology
Radiology exam reviewed: radiology read reviewed
*Pulse Oximetry
Patient hypoxic: no
*Critical Care Note
Total Time (30-74mins, 75-104mins- exclusive of procedures): Not Applicable
ED Attending Note
<FRANDY Morales - Last Filed: 04/27/24 04:38>
-
Portions of this chart may have been created with voice recognition software.� Occasional wrong word or��sound alike� substitutions may have occurred due to the inherent limitations of voice recognition software.
<Evelyn Trujillo DO - Last Filed: 04/27/24 03:30>
ED Attending Note
Patient seen and examined by attending physician: Yes
I performed the substantive portion of visit, reviewed & personally made and approve the management plan that is documented in note by myself or JACE.: Yes
ED Attending Note:
This is a 29-year-old female with history of Crohn's disease chronically maintained on Remicade. History of chronic joint pain/undifferentiated connective tissue disease, chronically maintained on opioid medications and follows regularly with pain
management.
She presents with left upper canine dental pain that began sometime last week, worsened over the weekend and thus she presented to her primary dentist on Wednesday, April 24 and was started on amoxicillin 500 mg 4 times daily. She then followed up
with an body and frame man on April 26 and underwent partial root canal procedure with drainage of focal abscess and antibiotic cement placed.
She does note some focal swelling of her left medial cheek even prior to body and frame man visit but swelling has worsened along with intermittent chills and low-grade fever over the past 2 days.
Pain has gotten progressively worse throughout this evening.
GENERAL: 29-year-old female appears her stated age, awake and alert, appears in mild distress related to pain. Easily communicative. Low-grade fever 99.5 �F.
EYE: pupils equal and reactive. Extraocular muscles intact. Anicteric
NECK: Supple, nontender, no meningismus, no significant adenopathy.
ENT: posterior pharynx is clear, oral mucosa is moist. There is mild soft tissue swelling and mild erythema left medial cheek that extends to her left inferior orbital region. Moderate tenderness about the left upper canine. There is no overt
gingival abscess nor gingival edema. TM clear b/l, nares patent.
CARDIAC: Regular rate and rhythm. no murmur.
LUNGS: Clear breath sounds bilaterally, no acute respiratory distress
ABDOMEN: Soft, nondistended, without focal tenderness, normoactive BS.
NEUROLOGICAL: Alert and oriented x3, no focal neuro deficits. Gait is cedeno and steady.
SKIN: Warm and dry, normal color, skin intact. No rash.
MUSCULOSKELETAL: No C/C/E. peripheral pulses are full and equal b/l. No palpable tenderness.
PSYCH: Mildly anxious. Cooperative.
Concern for dental abscess, facial cellulitis, bacteremia/sepsis.
Patient is immunocompromised as she is maintained on Remicade.
Will check labs, blood cultures, lactic acid and will check CT of the facial bones to assess for potential abscess.
Will initiate IV fluids, give an IV dose of Toradol and a milligram of Dilaudid and will initiate IV clindamycin to broaden anaerobic antibiotic coverage.
04/27/2024 0326 AM
Patient resting comfortably.
Tachycardia has resolved.
Labs show mildly elevated white blood cell count of 11.9 but unremarkable chemistries, normal lactic acid at 0.6.
CAT scan shows facial swelling left anterior maxillary and perinasal region extending into the left preseptal infraorbital region but no postseptal inflammatory changes, no rim-enhancing abscess, no air in the soft tissues. Sinuses are clear.
Overall patient appears markedly improved. CAT scan reassuring.
Discharged to home with prescription for clindamycin. Recommend she discontinue amoxicillin.
Continue regular pain medication.
Discussed supportive measures, elevating head of bed, local ice, soft diet.
Prompt follow-up with body and frame man for recheck.
Discharge Plan
Departure
Patient Disposition: Home (Routine Discharge)
Date of Disposition: 04/27/24
Time of Disposition: 03:28
Patient with high blood pressure during this ER visit?: No
Condition: Good
Discharge Problem:
Dental infection
Instructions: Tooth Abscess (DC)
Prescriptions:
New
clindamycin HCl 300 mg capsule
300 mg PO Q6H Qty: 28 0RF
No Action
oxycodone 10 mg Tablet
10 mg PO 5/D PRN (Reason: severe pain)
clonazepam 1 mg Tablet
2 mg PO BID@1130,1999
Patient Comments:
pdmp picking belt operator on 01/10/24 #60
fexofenadine [Darline] 180 mg Tablet
360 mg PO QPM
acetaminophen [Tylenol Extra Strength] 500 mg Tablet
1,000 mg PO Q6HPRN PRN (Reason: mild pain)
famotidine [Pepcid] 20 mg Tablet
10 mg PO HS
ascorbic acid (vitamin C) [Vitamin C] 500 mg Tablet
500 mg PO BID
infliximab [Remicade] 100 mg Recon Soln
7.5 mg IV Q6W
gabapentin 300 mg Capsule
300 mg PO QID
hydroxyzine pamoate 25 mg capsule
25 mg PO QID
duloxetine [Cymbalta] 30 mg Capsule,Delayed Release(Dr/Ec)
30 mg PO DAILY
Rx Instructions:
take with 60mg
duloxetine [Cymbalta] 60 mg Capsule,Delayed Release(Dr/Ec)
60 mg PO DAILY
Rx Instructions:
take with 30mg
melatonin 10 mg Tablet
10 mg PO HS
oxycodone [OxyContin] 10 mg Tablet,Oral Only,Ext.Rel.12 Hr
10 mg PO QPM
Patient Comments:
patient picking belt operator #15 on 01/10/24 only one a day
vitamin A 3,000 mcg (10,000 unit) Capsule
3,000 mcg PO HS
Referrals:
Nadege Dyson PA [Family Provider] -
Activity Restrictions/Additional Instructions:
Touch base with your body and frame man and/or dentist for prompt recheck.
Interventions
Interventions:
*Risk Screen - Suicide Last Done: 04/27/24 01:09
*General Assessment Last Done: 04/27/24 01:09
*Neglect/Abuse Screening Last Done: 04/27/24 01:09
ED- Fall Risk Assessment Last Done: 04/27/24 01:09
*ED COVID-19 Vaccine History Last Done: 04/27/24 01:09
*Nursing Disposition Last Done: 04/27/24 03:51
Discharge Date and Time
Discharge Date/Time: 04/27/24 03:52
Print Language: OCCITAN
[2024-04-27] MEDS: NSS 1000 IV (02:09)
[2024-04-27] MEDS: DILAUDID 1 MG IV (02:11)
[2024-04-27] MEDS: TORADOL 15 MG IV ×2 (02:11→03:25)
[2024-04-27 02:13] VITALS: BP 113/77
[2024-04-27 02:23] LABS: % Basophils 0.2 % (0-2); % Eosinophils 0.3 % (0-6); % Immature Granulocytes 0.3 % (0-0.5); % Lymphocytes 16.2 % (20.5-51.1); % Monocytes 11.6 % (1.7-9.3); % Neutrophils 71.4 % (42.2-75.2); Absolute Lymphocytes 1.9 10^3/uL (1.2-3.4); Absolute Monocytes 1.4 10^3/uL (0.1-0.6); Absolute Neutrophils 8.5 10^3/uL (1.4-6.5); Hemoglobin 12.2 g/dL (12.0-16.0); Mean Corp Hgb Conc. 35.9 g/dL (33.0-37.0); Mean Corpuscular Volume 80.8 fL (81.0-99.0); Mean Platelet Volume 10.9 fL (7.4-10.4); Nucleated Red Blood Cells % 0 %; Platelet Count 213 10^3/uL (130-400); Red Blood Cell Count 4.21 10^6/uL (4.20-5.40); Red Cell Dist. Width 13.9 % (11.5-14.5); White Blood Cell Count 11.9 10^3/uL (4.8-10.8)
[2024-04-27 02:26] LABS: Lactic Acid 0.6 mmol/L (0.7-2.0)
[2024-04-27 02:28] LABS: ALT (SGPT) 19 U/L (0-35); AST (SGOT) 25 U/L (14-36); Albumin 4.2 g/dl (3.5-5.0); Alkaline Phosphatase 79 U/L (38-126); Blood Urea Nitrogen 15 mg/dl (7-17); Carbon Dioxide 25 mmol/L (22-30); Chloride 101 mmol/L (98-107); Estimated Creatinine Clearance 90 ml/min; Glucose 114 mg/dl (70-99); Potassium 3.9 mmol/L (3.5-5.1); Sodium 139 mmol/L (135-145); Total Bilirubin 1.1 mg/dl (0.2-1.3); Total Protein 7.6 g/dl (6.3-8.2); eGFR > 60.00
[2024-04-27] MEDS: CLEOCIN 50 IV (03:07)
[2024-04-27 03:08] VITALS: BP 99/65
== END 2024-04-27 03:52 | disposition home or self-care (01) ==
LOC: EMR 23:48
PROVIDERS: EMERGENCY PHYSICIAN Emergency Medicine; FAMILY PHYSICIAN Physician Assistant Medical
DX: K04.7 Periapical abscess without sinus (principal); R50.9 Fever, unspecified; K08.89 Other specified disorders of teeth and supporting structures; K50.90 Crohn's disease, unspecified, without complications; Z79.899 Other long term (current) drug therapy; Z98.890 Other specified postprocedural states; D84.9 Immunodeficiency, unspecified; M35.9 Systemic involvement of connective tissue, unspecified; G89.29 Other chronic pain; K58.9 Irritable bowel syndrome, unspecified; F41.9 Anxiety disorder, unspecified; K90.0 Celiac disease; F42.9 Obsessive-compulsive disorder, unspecified; Z91.012 Allergy to eggs; Z91.018 Allergy to other foods; Z91.013 Allergy to seafood; Z88.8 Allergy status to other drugs, medicaments and biological substances
CPT/HCPCS: 99284; 96365; 96361; 70487; 80053; 83605; 85025; 87040; Q9967

== ENCOUNTER 2024-04-28 09:14 | Inpatient (IN) | payer OTHER, SELFPAY ==
[2024-04-28] VITALS (7 sets, daily range): BP systolic 93–139; BP diastolic 50–92; BMI 25.8; BMI 25.2
--- NOTE | 2024-04-28 05:58 | EDRN ---
Per Dr Jennifer cullen, second marcaine with epi dental cartridge removed from [facility] for this pt
--- NOTE | 2024-04-28 06:10 | ED.GENMED ---
History of Present Illness
General
Chief Complaint: Facial Problem
Source: patient and family
Exam Limitations: none
Time Seen by Provider: 04/28/24 04:07
Nursing documentation reviewed up to this point in time: agreed with
History of Present Illness
History of Present Illness:
29-year-old female presents with left-sided dental pain and jaw pain. She had root canal and was started on amoxicillin for an infection. She was seen in the emergency department 2 days ago and switched to clindamycin. She states that her pain
has been increasing. 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 Patient denies fever, chills, nausea or vomiting. Patient follows regularly with pain management for chronic pain. She has connective tissue disease and is maintained on opioids.
Past History
Past History
ED Past Medical History: Other (Crohn's disease, celiac, IBS, anxiety)
ED Past Surgical History: Orthopedic and Other (Bowel surgery)
Social History
Tobacco: Non-smoker
Alcohol: Occasional
Drug: None
Personal: Other (Engage)
Living: with family
Employment: Employed
Family History
Family History: Other (her dads mother had Juvenile RA, mother has palpitations)
Review of Systems
Review of Systems
Allergies reviewed?: Yes
All Other Systems: ROS reviewed and negative except as documented in HPI and ROS
Cardiac: Denies chest pain or palpitations
Neurological: Denies headache
Psychiatric: Reports anxiety
Phy Exam
General Physical Exam
General Presentation: moderate distress
General age: appears stated age
General Skin: warm and dry
General Habitus: normal
General Mental: alert
General Hydration: appears well hydrated
ENT Exam
ENT Exam: neck supple, normocephalic, pharyngeal erythema, swallowing well (Patient tolerating secretions well.) and other (Veneers in the top teeth. Uvula is midline. No signs of abscess though there is some facial swelling on the left. I do not
feel a fluid collection.)
Eye Exam
Eye Exam: PERRL and EOMI
Eye Exam General: PERRL: bilateral and EOM intact: bilateral
Cardiovascular Exam
Cardiovascular Exam: regular rate/rhythm and no edema
Pulmonary Exam
Pulmonary Exam: lungs clear and no respiratory distress
Neurological Exam
Neurological Exam: alert and oriented x3
Musculoskeletal Exam
Musculoskeletal Exam: full ROM
Course
Orders/Labs/Results
Orders:
Orders
04/28/24 04:07
Bupivacaine HCl/Epinephrine [Marcaine 0.5% W/Epi [facility] [place]] 1 cartridge INJ OR ONE
04/28/24 05:55
Bupivacaine HCl/Epinephrine [Marcaine 0.5% W/Epi [facility] [place]] 1 cartridge .ROUTE .STK-MED ONE
04/28/24 Breakfast
Regular
At Your Request: Full Participation
04/28/24 06:39
HYDROmorphone [Dilaudid] 1 mg IV NOW STA
Ondansetron Injectable [Zofran] 4 mg IV NOW STA
04/28/24 07:07
Clindamycin 900 mg/50 ml [Cleocin] 900 mg in 50 ml IV NOW
04/28/24 07:24
HYDROmorphone [Dilaudid] 0.5 mg IV Q3HPRN PRN
04/28/24 07:31
CBC/No Diff [Complete Blood Count/No Diff] Stat
04/28/24 08:10
Basic Metabolic Panel Urgent
04/28/24 08:36
Admit Patient As Directed
Co-Sign Provider:
Level of Care: Inpatient admission
Assign to:: Medical/Surgical
Physician / Group: Hospitalist
Diagnosis: Mouth infection
Reason for Hospitalization: Mouth infection, left-sided facial swelling
Expected length of stay greater than two midnights?: Yes
ELOS- Estimated Length of Stay in days: 3
I certify the patient meets the requirements for IP care: Yes
Code Status As Directed
Resuscitation Status: Full Code
Bisacodyl [Dulcolax] 10 mg RECTAL [id number] PRN
Docusate W/Senna [Senokot-S] 1 tablet PO BIDPRN PRN
Polyethylene Glycol Powder [Miralax] 17 grams PO DAILYPRN PRN
04/28/24 08:38
Activity As Directed
Activity Level: Ambulate
Vital Signs As Directed
Frequency: Per unit guidelines
04/28/24 08:39
PRN Pain Medication Management As Directed
May give lesser potent ordered pain med per pt: Yes
preference::
Protocol:: Medication orders for pain may be administered in a
manner that supports deferring to patient preference
when the pt is:
- Requesting an ordered lesser potent pain medication.
Least to most potent pain medications are defined
as: acetaminophen < NSAID < tramadol < opioids
(morphine, oxycodone, hydromorphone).
- Requesting a lesser dose of the same medication IF
ORDERED.
- Requesting a less intrusive route of administration
if both routes are prescribed by the provider (PO <
IV).
04/28/24 08:41
DX Deep Vein Thrombosis Video Routine
04/28/24 08:42
Intake/ Output As Directed
Frequency: Per unit guidelines
Weight As Directed
Frequency: Daily
Pulse Ox/spot Check [RESP] Routine
Quantity: 1
04/28/24 08:55
Ketorolac [Toradol] 15 mg IV NOW STA
04/28/24 09:00
Flush (0.9% Sodium Chloride) [Flush (Nss)] See Dose Instructions IV PER PROTOCOL
04/28/24 09:05
Admit/Transfer Patient As Directed
Co-Sign Provider:
Level of Care: Inpatient admission
Assign to:: Medical/Surgical
Physician / Group: Hospitalist
Diagnosis: Mouth infection
Reason for Hospitalization: Moderate infection, facial swelling
Expected length of stay greater than two midnights?: Yes
ELOS- Estimated Length of Stay in days: 3
I certify the patient meets the requirements for IP care: Yes
PRN Pain Medication Management As Directed
May give lesser potent ordered pain med per pt: Yes
preference::
Protocol:: Medication orders for pain may be administered in a
manner that supports deferring to patient preference
when the pt is:
- Requesting an ordered lesser potent pain medication.
Least to most potent pain medications are defined
as: acetaminophen < NSAID < tramadol < opioids
(morphine, oxycodone, hydromorphone).
- Requesting a lesser dose of the same medication IF
ORDERED.
- Requesting a less intrusive route of administration
if both routes are prescribed by the provider (PO <
IV).
04/28/24 09:35
HYDROmorphone [Dilaudid] 1 mg IV Q6HPRN PRN
04/28/24 09:36
HYDROmorphone [Dilaudid] 0.5 mg IV Q4HPRN PRN
04/28/24 13:00
Ketorolac [Toradol] 15 mg IV Q4HPRN PRN
04/28/24 13:05
Acetaminophen [Tylenol] 1,000 mg PO Q6HPRN PRN
Clonazepam [Klonopin] 1 mg PO BID@1130,2000
Gabapentin [Neurontin] 300 mg PO QID
Oxycodone [Roxicodone] 10 mg PO 5/D PRN
04/28/24 14:00
HydrOXYZINE [Atarax] 25 mg PO QID
04/28/24 15:00
Ketorolac [Toradol] 15 mg IV Q6HPRN PRN
04/28/24 18:00
Enoxaparin Sodium [Lovenox] 40 mg SC QPM
Loratadine [Claritin] 10 mg PO QPM
Oxycodone Controlled Release [Oxycontin (Controlled Release)] 10 mg PO QPM
04/28/24 22:00
Famotidine [Pepcid] 10 mg PO HS
04/29/24 05:08
Basic Metabolic Panel IN AM
Complete Blood Count/With Diff IN AM
04/29/24 08:00
Duloxetine Delayed Release [Cymbalta Delayed Release] 30 mg PO DAILY
Duloxetine Delayed Release [Cymbalta Delayed Release] 60 mg PO DAILY
05/02/24 08:00
infliximab [Remicade] 7.5 mg IV ONCE ONE
Abnormal Lab Results
04/28/24
07:31
RBC 3.95 L 10^6/uL
(4.20-5.40)
Hgb 11.4 L g/dL
(12.0-16.0)
Hct 32.5 L %
(37.0-47.0)
MPV 11.3 H fL
(7.4-10.4)
04/28/24 07:31
04/28/24 08:10
Vital Signs
Initial and Last Documented VS:
Initial Vital Signs
Temp Pulse Resp BP Pulse Ox
98.2 F 133 20 139/92 95
04/28/24 03:29 04/28/24 03:29 04/28/24 03:29 04/28/24 03:29 04/28/24 03:29
Last Documented Vital Signs
Temp Pulse Resp BP Pulse Ox
98 F 87 19 107/74 96
04/29/24 15:00 04/29/24 15:00 04/29/24 15:00 04/29/24 15:00 04/29/24 15:00
*Critical Care Note
Total Time (30-74mins, 75-104mins- exclusive of procedures): Not Applicable
Update Note
Update Note:
04/28/2024 0621 AM: Back in to see the patient to perform a second dental block. Patient is upset stating that she was not being taken seriously. She was upset that I had offered her an NSAID when she takes Remicade and is unable to take NSAIDs.
She does take oxycodone and OxyContin that are managed by pain management. The first dental block did provide some relief initially but then patient stated that it 'caused her pain to increase '.
04/28/2024 0640 AM: Back in to see patient. She is tearful. Due to the facial swelling, I feel that a course of IV antibiotics is warranted. Patient to be brought into the hospital for the facial swelling and continued observation. She will get
a dose of IV pain medication.
Spoke with FLORENTINO Fish. She is not on-call but willing to see the patient in her office.
04/28/2024 0733 AM: Patient resting more comfortably. She is aware that [facility] is not available but I did give her Dr. Durant's name to follow-up should her kiln loader not be available.
ED Attending Note
-
Portions of this chart may have been created with voice recognition software.� Occasional wrong word or��sound alike� substitutions may have occurred due to the inherent limitations of voice recognition software.
Discharge Plan
Departure
Patient Disposition: Admit
Date of Disposition: 04/28/24
Time of Disposition: 06:42
Admit to: Med/Surg
Presentation/result/management discussed w/ accepting MD/DO: Hospitalist
Condition: Fair
Discharge Problem:
Facial swelling, Pain, dental
Interventions
Interventions:
*Risk Screen - Suicide Last Done: 04/28/24 03:29
*General Assessment Last Done: 04/28/24 04:44
*Neglect/Abuse Screening Last Done: 04/28/24 03:29
*ED COVID-19 Vaccine History Last Done: 04/28/24 15:32
*Nursing Disposition Last Done: 04/28/24 14:55
ED- Neurological Assessment Last Done: 04/28/24 07:15
ED-Skin Assessment Last Done: 04/28/24 07:15
Discharge Date and Time
Discharge Date/Time: 04/28/24 15:15
[2024-04-28] MEDS: DILAUDID 1 MG IV ×2 (07:10→13:01)
[2024-04-28] MEDS: MARCAINE 0.5% W/EPI DENTAL CARTDRIDGE 1 CARTRIDGE INJ (07:11)
[2024-04-28] MEDS: CLEOCIN 50 IV (07:31)
[2024-04-28 07:46] LABS: Hematocrit 32.5 % (37.0-47.0); Hemoglobin 11.4 g/dL (12.0-16.0); Mean Corp Hgb Conc. 35.1 g/dL (33.0-37.0); Mean Corpuscular Hgb 28.9 pg (27.0-31.0); Mean Corpuscular Volume 82.3 fL (81.0-99.0); Mean Platelet Volume 11.3 fL (7.4-10.4); Platelet Count 207 10^3/uL (130-400); Red Blood Cell Count 3.95 10^6/uL (4.20-5.40); Red Cell Dist. Width 14.1 % (11.5-14.5); White Blood Cell Count 10.7 10^3/uL (4.8-10.8)
--- NOTE | 2024-04-28 08:07 | HPS.HSE ---
Family Physician
<Brennen Suarez MD, Resident - Last Filed: 04/28/24 09:46>
-
Family Physician: Nadege Dyson
Chief Complaint
<Brennen Suarez MD, Resident - Last Filed: 04/28/24 09:46>
-
Facial swelling/pain
History of Present Illness
Patient is a 27-year-old female with PMH of Crohn's disease, celiac disease, IBS, chronic neuralgia, chronic pain syndrome (chronic opioid dependence), who presented to ED on 04/28/2024 with complaints of facial pain, erythema and swelling.
Patient reports that 2 years ago, she has enthesitis related to her Crohn's and was placed on chronic steroids which affected her tooth. She has been maintained on 50 mg oxycodone daily with an additional 10 mg of OxyContin at night for the past 6
months. She also had dental veneers which was instilled 2 weeks ago and fell of 5 days ago for which she went in to see an systems security analyst 4 days ago. At that visit, patient was started on amoxicillin and subsequently had a root canal done 2 days ago
with an instillation of antibiotics into her left upper canine for a suspected infection. She however developed worsening swelling and pain of her left face that started 2 days ago. Patient was seen in the ED 2 days ago and her antibiotics were
switched to clindamycin. She stated that the pain was manageable which prompted her to come in yesterday to be evaluated.
While in the ED, patient received a dental block with Marcaine which she stated made her pain worse. She reports a left facial/jaw pain rated 7/10, improved to 6/10 with 0.5 Dilaudid. She also reports intermittent double vision, headaches, nausea,
abdominal discomfort, fever and chills. She denies chest pain, shortness of breath, cough, or abdominal pain.
Medical History
<Brennen Suarez MD, Resident - Last Filed: 04/28/24 09:46>
Past Medical History
Past Medical History: Reports Other (Crohn's disease, celiac disease, IBS, OCD)
Past Surgical History: Reports Orthopedic
Additional Past Surgical History:
Rectopexy (01/01/2022), ureteral stent
Social History
Tobacco: Non-smoker
Alcohol: None
Drug: None
Personal: Other (Engaged)
Living: With Family
Employment: Employed
Family History
Family History: Not pertinent and Other
Allergies / Home Medications
Allergies reflects when Allergies were last updated in [employer].
Home Medications with original date entered in [employer]
Allergy/Medication List:
Allergies
Allergy/AdvReac Type Severity Reaction Status Date / Time
egg Allergy Anaphylaxis Verified 04/28/24 03:28
gluten Allergy stomach Verified 04/28/24 03:28
pain
shrimp Allergy Unknown Verified 04/28/24 03:28
tree nut Allergy Hives Verified 04/28/24 03:28
prochlorperazine AdvReac Intermediate Akathesia Verified 04/28/24 03:28
Home Medications
�Medication �Instructions �Recorded
oxycodone 10 mg tablet 10 mg PO 5/D PRN severe pain 02/12/23
acetaminophen 500 mg tablet 1,000 mg PO Q6HPRN PRN mild pain 01/15/24
(Tylenol Extra Strength)
ascorbic acid (vitamin C) 500 mg 500 mg PO BID 01/15/24
tablet (Vitamin C)
clonazepam 1 mg tablet 1 mg PO BID@1130,2000 01/15/24
duloxetine 30 mg capsule,delayed 30 mg PO DAILY 01/15/24
release (Cymbalta)
duloxetine 60 mg capsule,delayed 60 mg PO DAILY 01/15/24
release (Cymbalta)
famotidine 20 mg tablet (Pepcid) 10 mg PO HS 01/15/24
fexofenadine 180 mg tablet 360 mg PO QPM 01/15/24
gabapentin 300 mg capsule 300 mg PO QID 01/15/24
hydroxyzine pamoate 25 mg capsule 25 mg PO QID 01/15/24
infliximab 100 mg intravenous 7.5 mg IV Q6W 01/15/24
solution (Remicade)
melatonin 10 mg tablet 10 mg PO HS 01/15/24
oxycodone 10 mg tablet,crush 10 mg PO QPM 01/15/24
resistant,extended release 12 hr
(OxyContin)
vitamin A 3,000 mcg (10,000 unit) 3,000 mcg PO HS 02/26/24
capsule
clindamycin HCl 300 mg capsule 300 mg PO Q6H #28 caps 04/27/24
Magic Mouthwash 1 dose PO Q3HPRN PRN mouth 04/28/24
pain/thrush
Review of Systems
<Brennen Suarez MD, Resident - Last Filed: 04/28/24 09:46>
-
History Source: Patient
Constitutional: Reports Chills
EENT: Reports Mouth Pain, Mouth Swelling and Other; Denies Runny Nose
Respiratory: Reports No Symptoms; Denies Cough or Trouble Breathing
Cardiac: Reports No Symptoms
Abdomen/GI: Reports Nausea; Denies Diarrhea, Constipated or Black Stools
Musculoskeletal: Reports No Symptoms
<Audie Briscoe DO - Last Filed: 04/28/24 11:08>
-
A 12 point ROS was completed and negative except as noted: Yes
: Reports No Symptoms
Skin: Reports No Symptoms
Neurological: Reports No Symptoms
Endocrine: Reports No Symptoms
Hematologic/Lymphatic: Reports No Symptoms
Psych: Reports No Symptoms
Physical Exam
<Brennen Suarez MD, Resident - Last Filed: 04/28/24 09:46>
Vital Signs
Vital Signs
Temp Pulse Resp BP Pulse Ox
99.2 F 97 16 111/81 98
04/28/24 03:35 04/28/24 07:12 04/28/24 07:12 04/28/24 07:12 04/28/24 07:12
Physical Exam
General: Well Developed, Well Nourished, No Apparent Distress, Comfortable and Conversant
HEENT: NormoCephalic, Anicteric, Atraumatic, Nose Appears Normal, Ears Appear Normal, Pharyngeal Erythema and Other (Mild left facial swelling); No Thrush or Neck Mass
Respiratory: Clear and Non Labored Respirations; No Wheezes or Crackles
Cardiac: S1/S2 and Regular Rhythm
GI: Soft, Non Tender, Non Distended and Normal Bowel Sounds
Skin: Warm
Neuro: Awake and AO x 3
Psych: Calm and Intact Judgment/Insight
<Audie Briscoe, DO - Last Filed: 04/28/24 11:08>
Physical Exam
Musculoskeletal: No Clubbing, No Cyanosis and No Edema
Skin: Dry; No Rash
Neuro: Nonfocal/grossly intact
Laboratory Results
<Brennen Suarez MD, Resident - Last Filed: 04/28/24 09:46>
-
04/28/24 07:31
Data Reviewed
<Brennen Suarez MD, Resident - Last Filed: 04/28/24 09:46>
-
CT Scan: Image Personally Visualized and interpreted, Report Reviewed by me and Discussed with Physician
Lab Data: Labs Reviewed by me and Discussed with Physician
Old Records: Reviewed
Impression/Plan
<Brennen Suarez MD, Resident - Last Filed: 04/28/24 09:46>
-
IMPRESSION: 27-year-old female with PMH of Crohn's, IBD, celiac disease on chronic opioid dependence, who presented to ED on 04/28/2024 with left facial swelling, erythema and pain. She had a recent root canal done with instillation of
antibiotics due to suspected canine infection.
Assessment/plan:
#Facial swelling/pain
-Suspect dental infection with ongoing inflammation of left upper teeth.
-CT scan of face with IV contrast negative for collections or abscesses.
-Leukocytosis resolved.
-Continue clindamycin.
-PDMP queried, no red flags.
-Continue home oxycodone regimen, Dilaudid plus Toradol for breakthrough pain.
-ID consult if not improving in the next 24 to 48 hours.
-Information for FS Dr. Fouzia Durant given to patient for outpatient follow-up in case her systems security analyst not available.
-Follow fever curve.
#Chronic pain syndrome
-History of enthesitis related to Crohn's disease.
-Continue gabapentin, duloxetine.
#History of Crohn's disease, IBS, celiac disease
-Continue Remicade.
#History of anxiety
-Continue clonazepam.
DVT prophylaxis-Lovenox
CODE STATUS-full code
[2024-04-28 08:36] LABS: Blood Urea Nitrogen 14 mg/dl (7-17); Calcium 8.9 mg/dl (8.4-10.2); Carbon Dioxide 29 mmol/L (22-30); Chloride 103 mmol/L (98-107); Estimated Creatinine Clearance 103 ml/min; Glucose 92 mg/dl (70-99); Sodium 141 mmol/L (135-145); eGFR > 60.00
[2024-04-28] MEDS: TORADOL 15 MG IV ×3 (09:07→18:38)
[2024-04-28] MEDS: KLONOPIN 1 MG PO ×2 (14:38→20:19)
[2024-04-28] MEDS: ATARAX 25 MG PO ×3 (14:39→21:35)
[2024-04-28] MEDS: NEURONTIN 300 MG PO ×3 (14:39→21:35)
[2024-04-28] MEDS: CLEOCIN 52 MG IV ×2 (14:40→21:28)
[2024-04-28] MEDS: LOVENOX 40 MG SC (17:07)
[2024-04-28] MEDS: ROXICODONE 10 MG PO (17:38)
[2024-04-28] MEDS: LR 1000 IV (18:26)
[2024-04-28] MEDS: DILAUDID 0.5 MG IV (18:37)
[2024-04-28] MEDS: TYLENOL 1000 MG PO (20:20)
[2024-04-28] MEDS: OXYCONTIN (CONTROLLED RELEASE) 10 MG PO (21:34)
[2024-04-28] MEDS: PEPCID 10 MG PO (21:34)
[2024-04-28] MEDS: MELATONIN 10 MG PO (22:49)
[2024-04-29] MEDS: TORADOL 15 MG IV ×3 (01:20→16:12)
[2024-04-29] MEDS: DILAUDID 0.5 MG IV (01:21)
[2024-04-29] MEDS: CLEOCIN 52 MG IV ×3 (02:54→13:25)
[2024-04-29] MEDS: DILAUDID 1 MG IV (05:19)
[2024-04-29 06:00] VITALS: BMI 25.4
[2024-04-29 06:03] LABS: % Basophils 0.2 % (0-2); % Eosinophils 9.5 % (0-6); % Immature Granulocytes 0.1 % (0-0.5); % Lymphocytes 44.4 % (20.5-51.1); % Monocytes 11.7 % (1.7-9.3); % Neutrophils 34.1 % (42.2-75.2); Absolute Eosinophils 0.8 10^3/uL (0-0.7); Absolute Lymphocytes 3.6 10^3/uL (1.2-3.4); Absolute Monocytes 0.9 10^3/uL (0.1-0.6); Absolute Neutrophils 2.7 10^3/uL (1.4-6.5); Hematocrit 30.6 % (37.0-47.0); Hemoglobin 10.6 g/dL (12.0-16.0); Mean Corp Hgb Conc. 34.6 g/dL (33.0-37.0); Mean Corpuscular Hgb 29.4 pg (27.0-31.0); Mean Corpuscular Volume 84.8 fL (81.0-99.0); Mean Platelet Volume 11.2 fL (7.4-10.4); Nucleated Red Blood Cells % 0 %; Platelet Count 187 10^3/uL (130-400); Red Blood Cell Count 3.61 10^6/uL (4.20-5.40); Red Cell Dist. Width 13.6 % (11.5-14.5)
--- NOTE | 2024-04-29 06:07 | PTCARENOTE ---
Pt slept intermittently t/o the night. Fiance at bedside overnight with pt. Pt medicated for left face pain as needed t/o the night. Ice packs applied to left face fro pain and swelling. Left wrist int infusing LR @70ml/hr as ordered. all questions
answered. Will continue to monitor.
[2024-04-29 06:31] LABS: Blood Urea Nitrogen 13 mg/dl (7-17); Calcium 8.7 mg/dl (8.4-10.2); Carbon Dioxide 28 mmol/L (22-30); Chloride 105 mmol/L (98-107); Estimated Creatinine Clearance 103 ml/min; Glucose 84 mg/dl (70-99); Potassium 4.6 mmol/L (3.5-5.1); Sodium 141 mmol/L (135-145); eGFR > 60.00
[2024-04-29 07:00] VITALS: BP 113/68
--- NOTE | 2024-04-29 08:23 | W.PN.HOSP.TC ---
Today's Communication/Plan
-
adjust pain medication
ID consult
Assessment / Plan
Assessment / Plan
Left facial CT scan
Left-sided facial swelling. No focal collection or abscess. No evidence of subcutaneous emphysema.
The examination was performed after-hours on an emergency basis, with initial preliminary interpretation provided by [facility].

1. Left facial cellulitis
Dental infection w/o abscess
-left upper tooth infection with surrounding facial swelling
-CT scan of face with IV contrast negative for collections or abscesses.
-Currently on IV clindamycin
-WBC normalized/afebrile
-ID consulted for further help
2. Chronic pain and narcotic dependance
-PDMP reviewed and patient is on oxycodone 10mg 5/D and oxy 10 HS
-Long discussion with patient with BF at bedside regarding appropriateness of pain medication usage and dependance
-I have reinforced that I am willing to give more oxycodone rather than keep giving IV dilaudid 0.5 or 1mg every 4hr, patient hesitant but willing to try
-Of note patient f/us with pain specialist
3. History of Crohn's disease
-f/u at [facility] and Locally with Dr Garcia
-Have been tried on stelara in past, remicaide is helping the best
-have 1 BM every other day currently
4. Generalized anxiety disorder
-Continue clonazepam.
DVT prophylaxis-Lovenox
CODE STATUS-full code
Total time spent : 53 mins
Anticipated Discharge: 24 - 48 hours
Subjective/Interval History
-
Date of Service: April 29, 2024
patient continues to have left sided facial swelling and pain
afebrile overnight
no reported diarrhea with the crohns disease
Objective Data
-
Labs:
Laboratory Results
04/29/24
05:08
WBC 8.0
Hgb 10.6 L
Hct 30.6 L
Plt Count 187
Sodium 141
Potassium 4.6
Chloride 105
Carbon Dioxide 28
BUN 13
Creatinine 0.7
Glucose 84
Calcium 8.7
Vital Signs:
Vital Signs
Temp Pulse Resp BP Pulse Ox
97.5 F 67 16 99/56 94
04/28/24 23:00 04/28/24 23:00 04/28/24 23:00 04/28/24 23:00 04/29/24 00:09
I&O
04/28/24 04/29/24 04/30/24
06:59 06:59 05:59
Intake Total 0 / 1660
Balance 1659 / 1660
Review of Systems
-
Respiratory: Reports No Symptoms
Cardiac: Reports No Symptoms
Abdomen/GI: Reports No Symptoms
Physical Exam
-
General: No Apparent Distress and Comfortable
HEENT: Other (Left facial swelling)
Neuro: Awake, Alert, Oriented, No Motor Deficits and Nonfocal/Grossly Intact
Psych: Calm
[2024-04-29] MEDS: ATARAX 25 MG PO ×4 (08:28→22:53)
[2024-04-29] MEDS: CYMBALTA DELAYED RELEASE 30 MG PO (08:28)
[2024-04-29] MEDS: CYMBALTA DELAYED RELEASE 60 MG PO (08:28)
[2024-04-29] MEDS: NEURONTIN 300 MG PO ×4 (08:29→22:53)
[2024-04-29] MEDS: DILAUDID 0.25 MG IV ×2 (08:50→16:13)
[2024-04-29] MEDS: LR IV (09:49)
[2024-04-29] MEDS: ROXICODONE 15 MG PO ×4 (10:54→22:55)
[2024-04-29] MEDS: TYLENOL 1000 MG PO ×2 (10:55→20:19)
[2024-04-29] MEDS: KLONOPIN 1 MG PO ×2 (13:26→20:17)
[2024-04-29 15:00] VITALS: BP 107/74
--- NOTE | 2024-04-29 15:05 | CON.ID ---
Consultation
-
Date/Time Consultation Requested: April 29, 2024 1123
Date/Time Consultation Performed: April 29, 2024 1500
Requesting Provider: Dr. Wellington Christopher
Performing Provider: Dr. Sheila Wall
Reason for Consultation: Dental infection with cellulitis
Chief Complaint / Past History
Chief Complaint
Severe tooth/face pain
History of Present Illness
29-year-old female with Crohn's disease on Remicade, chronic joint pains, opioid dependence, who noted left canine tooth and gum swelling and discomfort on April 08. She was prescribed mouthwash without improvement. On April 24, she
saw her dentist because the frontal veneer came off. She had x-ray and was told no infection. Dentist prescribed amoxicillin 500 mg every 6 hours. On Wednesday evening, she had severe tooth pain radiating up the side of her left nose. The next
morning she noted swelling on the left side of her face and saw her sheeter operator who repeated an x-ray which showed large abscess. She underwent partial root canal with antibiotic instillation. She was instructed to continue with amoxicillin. She
was prescribed Tylenol 3. That evening she had severe pain at the root canal site as well as worsening facial swelling. She presented to the ER April [address] of the facial bone showed left facial swelling, no abscess. She received Toradol.
The amoxicillin was replaced with clindamycin 300 mg every 6 hours. She was discharged to home. However she continued to have severe pain and swelling of the left face. She came to the ER yesterday. She is now on IV clindamycin. Per mother the
redness and swelling appears to be extending to the right side today. Patient reports she had subjective fevers. Is able to swallow. No diarrhea or abdominal pain.
Past History
Additional Past Medical History:
Crohn's disease on Remicade
Celiac disease
Irritable bowel syndrome
anxiety
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
Allergy History:
egg Allergy (Verified 04/28/24 03:28)
Anaphylaxis
gluten Allergy (Verified 04/28/24 03:28)
stomach pain
shrimp Allergy (Verified 04/28/24 03:28)
Unknown
tree nut Allergy (Verified 04/28/24 03:28)
Hives
prochlorperazine Adverse Reaction (Intermediate, Verified 04/28/24 03:28)
Akathesia
Medications Reviewed: Yes
Current Antibiotics:
clindamycin
Social History
Tobacco: Non-Smoker
Alcohol: None
Drug: None
Family History
Family History: Not Pertinent
Review of Systems
Review of Systems
HEENT: Negative Stiff Neck, Sinus Problems, Headache or Pharyngitis
Cardiovascular: Negative Chest Pain
Respiratory: Negative Dyspnea or Cough
Gasteroenterology: Negative Nausea, Vomiting or Diarrhea
Genital / Urological: Negative Dysuria or Flank Pain
Endocrine: Negative Weakness
Neurological: Negative Dizziness
All systems: All other systems were reviewed and were negative
Vital Signs
Temp Pulse Resp BP Pulse Ox
97.5 F 67 16 99/56 94
04/28/24 23:00 04/28/24 23:00 04/28/24 23:00 04/28/24 23:00 04/29/24 00:09
Physical Exam
Physical Exam
Constitutional: No Acute Distress
Head: Other (left maxilluray sinus tenderness; Left face edema to beneath orbit. Right minimal edema.)
Eyes: No Conjunctival Hemorrhage and Sclera Anicteric
Cardiovascular: Regular Rate and S1/S2
Pulmonary: Clear
Gastrointestinal: Soft, Non Tender, Non Distended and Normal Bowel Sounds
Genito-Urinary: Negative CVA Tenderness
Extremities: Negative Edema
Neurological: AO x 3
Lab / Diagnostic Study Results
04/29/24 05:08
04/29/24 05:08
Abs Immat Gran (auto) 0.0 10^3/uL (0-0.05) 04/29/24 05:08
Absolute Neuts (auto) 2.7 10^3/uL (1.4-6.5) 04/29/24 05:08
Absolute Lymphs (auto) 3.6 10^3/uL (1.2-3.4) H 04/29/24 05:08
Absolute Monos (auto) 0.9 10^3/uL (0.1-0.6) H 04/29/24 05:08
Absolute Basos (auto) 0.0 10^3/uL (0-0.2) 04/29/24 05:08
Immature Gran % 0.1 % (0-0.5) 04/29/24 05:08
Neutrophils % 34.1 % (42.2-75.2) L 04/29/24 05:08
Lymphocytes % 44.4 % (20.5-51.1) 04/29/24 05:08
Monocytes % 11.7 % (1.7-9.3) H 04/29/24 05:08
Eosinophils % 9.5 % (0-6) H 04/29/24 05:08
Basophils % 0.2 % (0-2) 04/29/24 05:08
Microbiology Results
04/27/24 CT facial bones: Left-sided facial swelling. No focal collection or abscess. No evidence of subcutaneous emphysema.
Assessment / Plan
# left canine tooth abscess s/p partial root canal 04/26
# Left cellulitis from tooth infection
- CT no abscess.
- DC clindamycin
-Start Unasyn.
-Follow clincially.
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
Crohn's disease on Remicade
Celiac disease
Irritable bowel syndrome
anxiety
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
[2024-04-29] MEDS: VISBIOME 2 CAP PO (16:12)
[2024-04-29] MEDS: UNASYN IV ×2 (17:23→22:53)
[2024-04-29] MEDS: LOVENOX 40 MG SC (17:23)
[2024-04-29] MEDS: ROXICODONE PO (22:07)
--- NOTE | 2024-04-29 22:30 | PTCARENOTE ---
Pt told this RN that she takes Darline 360mg HS at home; wesley brought in her home dose of Darline as our pharmacy does not carry this medication. House TRAIN CONDUCTOR Rene notified and Darline 360mg HS ordered and home medication provided to pt. Will
continue with current plan of care.
[2024-04-29] MEDS: NON-FORMULARY ITEM 360 MG PO (22:51)
[2024-04-29] MEDS: PEPCID 10 MG PO (22:53)
[2024-04-29] MEDS: MELATONIN 10 MG PO (22:53)
[2024-04-29 23:49] VITALS: BP 98/60
[2024-04-30] MEDS: DILAUDID 0.25 MG IV ×3 (01:23→16:12)
[2024-04-30] MEDS: TORADOL 15 MG IV ×3 (01:23→16:11)
[2024-04-30] MEDS: ROXICODONE 15 MG PO ×6 (02:36→23:20)
[2024-04-30] MEDS: UNASYN IV ×4 (03:02→22:20)
[2024-04-30 06:00] VITALS: BMI 25.3
[2024-04-30 07:48] VITALS: BP 109/72
[2024-04-30] MEDS: NEURONTIN 300 MG PO ×4 (08:35→22:21)
[2024-04-30] MEDS: CYMBALTA DELAYED RELEASE 60 MG PO (08:35)
[2024-04-30] MEDS: ATARAX 25 MG PO ×4 (08:35→22:22)
[2024-04-30] MEDS: VISBIOME 2 CAP PO (08:35)
[2024-04-30] MEDS: CYMBALTA DELAYED RELEASE 30 MG PO (08:35)
[2024-04-30] MEDS: VITAMIN C 500 MG PO ×2 (09:44→19:59)
--- NOTE | 2024-04-30 11:26 | CM ---
Met with patient and her mother at the bedside; initial assessment completed
[facility] [address] [facility] [place] [place]
Lives with her parents and fiance in a multilevel home; 1 step to enter via garage; 13 steps between floors; powder room and full bath on the 1st floor; her bathroom has walk-in shower
PLOF: independent with ambulation, stairs, and ADLs; Not driving; on medical leave at work
Reports she has a history of Crohn's Disease; facial swelling after partial root canal. Per note on chart, she has narcotic dependence
She will have transportation home
No SNF or Home Health utilization history
Plan: discharge to home; no needs anticipated
[2024-04-30] MEDS: KLONOPIN 1 MG PO ×2 (12:15→20:04)
--- NOTE | 2024-04-30 12:45 | W.PN.ID1 ---
Date of Service
Date of Service: April 30, 2024
Today's Communication
Add Vancomycin to Unasyn.
Assessment / Plan
# left canine tooth abscess s/p partial root canal 04/26
# Left facial cellulitis from tooth infection
- CT no abscess.
- Left face cellulitis improving, however, erythema/edema has extend to right face
-Continue Unasyn (d2)
- Add Vancomycin for MRSA coverage.
- Check nasal MRSA screen.
-Follow clinically.
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
Crohn's disease on Remicade
Celiac disease
Irritable bowel syndrome
anxiety
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
Chief Complaint
-: Cellulitis
Subjective / Review of Systems
Left face better but right face more swollen.
Vital Signs / Physical Exam
Vital Signs
Vital Signs
Temp Pulse Resp BP Pulse Ox
98.2 F 81 17 109/72 98
04/30/24 07:48 04/30/24 07:48 04/30/24 07:48 04/30/24 07:48 04/30/24 07:48
Physical Exam
Constitutional: No Acute Distress
Head: Other (Right face + edema, mild erythema; Left face edema/erythema decreased)
Eyes: No Conjunctival Hemorrhage and Sclera Anicteric
Gastrointestinal: Soft, Non Tender and Non Distended
Objective Data
Lab Data
Lab Results
04/29/24 05:08
04/29/24 05:08
Estimated Creat Clear 103 ml/min 04/29/24 05:08
Most recent labs reviewed.
04/27/24 CT facial bones: Left-sided facial swelling. No focal collection or abscess. No evidence of subcutaneous emphysema.
Care Review
Plan reviewed with: Physician (Dr. Christopher)
[2024-04-30] MEDS: VANCOCIN 530 MG IV (13:02)
[2024-04-30] MEDS: TYLENOL 1000 MG PO ×2 (13:15→21:05)
--- NOTE | 2024-04-30 14:26 | PHA.VAN.IN ---
Assessment
- Assessment
Renal Function: Unknown baseline
Concomitant Antimicrobials: unasyn
AUC Dosing Plan
- Dosing Variables
Dosing Weight (kg): 66.814
Dosing CrCl (ml/min): 103
Vd coefficient (L/kg): 0.7
- Empiric Dosing
Initial / Loading Dose: 1500mg
Maintenance Regimen: 1000mg q12h
Estimated AUC (mcg*h/mL): 497
Estimated Peak (mcg*h/mL): 32.4
Estimated Trough (mcg/ml): 12.1
Estimated Half Life (H): 7.7
- Monitoring
No levels ordered at this time: consider at steady state
Pharmacokinetics Vancomycin I
- -
Patient Age: 29
Patient Sex: Female
Vancomycin Day #: 1
Indication: Skin And Soft Tissue
Requesting Provider: Dr. Wall
Height / Weight:
Height 5 ft 4 in
Actual Weight 66.814 kg
IBW in k.7
- Vital Signs / Lab Results
Temp Pulse Resp BP Pulse Ox
98.2 F 81 17 109/72 98
04/30/24 07:48 04/30/24 07:48 04/30/24 07:48 04/30/24 07:48 04/30/24 07:48
Lab Results - Hematology
04/28/24 04/29/24
07:31 05:08
WBC 10.7 8.0
Lab Results - Chemistry
04/28/24 04/28/24 04/29/24
07:31 08:10 05:08
BUN Cancelled 14 13
Creatinine Cancelled 0.7 0.7
Estimated Creat Clear Cancelled 103 103
--- NOTE | 2024-04-30 14:51 | W.PN.HOSP.TC ---
Today's Communication/Plan
-
continue current pain meds
continue abx
Assessment / Plan
Assessment / Plan
Left facial CT scan
Left-sided facial swelling. No focal collection or abscess. No evidence of subcutaneous emphysema.
The examination was performed after-hours on an emergency basis, with initial preliminary interpretation provided by [facility].

1. Left facial cellulitis
Dental infection w/o abscess
-left upper tooth infection with surrounding facial swelling
-CT scan of face with IV contrast negative for collections or abscesses.
-Remains afebrile. WBC normal
-Facial swelling has improved today, not resolved completely. Maintained on IV Unasyn
-Discussed at length that patient needs to follow-up with [facility] postdischarge to take care of the primary issue of tooth
2. Chronic pain and narcotic dependance
-PDMP reviewed and patient is on oxycodone 10mg 5/D and oxy 10 HS
-Long discussion with patient with BF at bedside regarding appropriateness of pain medication usage and dependance
-Continues to complain pain although pain is manageable with current regimen of oxycodone.
-Patient f/us with Dr Gregg Santo of [facility].
3. History of Crohn's disease
-f/u at [facility] and Locally with Dr Garcia
-Have been tried on stelara in past, remicaide is helping the best
-have 1 BM every other day currently
4. Generalized anxiety disorder
-Continue clonazepam.
DVT prophylaxis-Lovenox
CODE STATUS-full code
Anticipated Discharge: 24 - 48 hours
Subjective/Interval History
-
Date of Service: April 30, 2024
Facial swelling is better
Pain is improved somewhat
Objective Data
-
Vital Signs:
Vital Signs
Temp Pulse Resp BP Pulse Ox
98.2 F 81 17 109/72 98
04/30/24 07:48 04/30/24 07:48 04/30/24 07:48 04/30/24 07:48 04/30/24 07:48
I&O
04/29/24 04/30/24 05/01/24
07:59 06:59 06:59
Intake Total 120 / 120
Balance 120 / 120
Review of Systems
-
Respiratory: Reports No Symptoms
Cardiac: Reports No Symptoms
Abdomen/GI: Reports No Symptoms
Physical Exam
-
General: No Apparent Distress and Comfortable
HEENT: Other (Left facial swelling)
Neuro: Awake, Alert, Oriented, No Motor Deficits and Nonfocal/Grossly Intact
Psych: Calm
[2024-04-30 16:01] VITALS: BP 104/67
[2024-04-30] MEDS: LOVENOX 40 MG SC (18:01)
[2024-04-30] MEDS: NON-FORMULARY ITEM 360 MG PO (22:17)
[2024-04-30] MEDS: MELATONIN 10 MG PO (22:18)
[2024-04-30] MEDS: PEPCID 10 MG PO (22:19)
[2024-04-30] MEDS: OXYCONTIN (CONTROLLED RELEASE) 15 MG PO (22:21)
[2024-04-30 23:30] VITALS: BP 93/54
[2024-05-01 00:15] VITALS: BP 93/54
[2024-05-01] MEDS: DILAUDID 0.25 MG IV ×4 (02:38→23:26)
[2024-05-01] MEDS: TORADOL 15 MG IV ×4 (02:40→23:28)
[2024-05-01] MEDS: ROXICODONE PO (03:51)
[2024-05-01] MEDS: UNASYN IV ×2 (04:19→08:45)
[2024-05-01] MEDS: VANCOCIN 200 IV (05:44)
[2024-05-01 05:51] VITALS: BMI 25.9
--- NOTE | 2024-05-01 07:11 | W.PN.HOSP.TC ---
Addendum entered and electronically signed by Joanne Lamb MD 05/01/24 17:18:
27-year-old female with Crohn's disease on immunosuppression presented with facial pain erythema and swelling.� Patient was recently at dentist where a root canal was performed.� She also had injection of antibiotic to the site of infection.� Came
worsening pain
Face with no edema noted today, C/O tenderness at the gum
CVS: S1-S2 normal
Chest: CTA B/L
Abdomen: Soft, NT
Extremities: No edema,
# Facial cellulitis
Recent dental procedure-left canine tooth abscess s/p partial root canal 04/26
CT of the face with IV contrast -Left-sided facial swelling. No focal collection or abscess. No evidence of subcutaneous emphysema.
Vanco and Unasyn (treated with clindamycin as outpatient)- changed to Augmentin
Infectious disease consultation appreciated
Dr. Fouzia Durant
# Chronic pain-on duloxetine and gabapentin, opiate dependent on OxyContin 10 Mg at bedtime and oxycodone 10 mg every 4 hours as needed
# Crohn's disease-on Remicade.� Hold in setting of infection. Is due 05/02/24 ( advised to hold off)
# Anxiety-continue Klonopin, hydroxyzine
# Celiac disease
# IBS
# Chronic tissue disorder-unspecified
# DVT prophylaxis-Lovenox
# Full code
Detailed discussion with patient with father and other family member at bedside about her pain. Resident will get in touch with patient's outpatient pain management doctor. I discussed with her that her inflammation is already subsiding therefore
there is no increased needs for pain medicines at this point. We discussed that we will discontinue IV pain medicines tomorrow. Will defer to outpatient. Plan About her able to take additional pain medicines for the next 2 to 3 days after
discharge.
Original Note:
Today's Communication/Plan
-
Continue pain management
DC planning tomorrow
Assessment / Plan
Assessment / Plan
IMPRESSION: 27-year-old female with PMH of Crohn's, IBD, celiac disease on chronic opioid dependence, who presented to ED on 04/28/2024 with left facial swelling, erythema and pain. She had a recent root canal done with instillation of
antibiotics due to suspected canine infection.
#Left facial cellulitis-Dental infection w/o abscess
-Cellulitis improved, facial swelling decreased.
-CT scan of face with IV contrast negative for collections or abscesses.
-Remains afebrile. WBC normal.
-Transitioned Unasyn to Augmentin 875 mg p.o. BID through 05/04/2024, Vancomycin discontinued (day #2).
-Nasal MRSA screen negative.
-Patient to follow-up with [facility] promptly after discharge.
#Chronic pain and narcotic dependance
-PDMP reviewed and patient is on oxycodone 10mg 5/D and oxy 10 HS, now on oxycodone 15 mg 5/D.
-Long discussion with patient with mother at bedside regarding The need to de-escalate narcotic use, Patient agreeable.
-Continues to complain pain although pain is manageable with current regimen of oxycodone.
-Called [facility] to update on pts pain management requirements, They sateted that pt has already texted them with detailed information and Dr. Santo will call back if they require further info.
#History of Crohn's disease
-No evidence of flare.
-f/u at [facility] and Locally with Dr Garcia.
-Have been tried on stelara in past, remicaide is helping the best.
#Generalized anxiety disorder
-Continue clonazepam.
DVT prophylaxis-Lovenox
CODE STATUS-full code
Data:
Facial CT w/ IV contrast 04/27/24:
Left-sided facial swelling. No focal collection or abscess. No evidence of subcutaneous emphysema.
The examination was performed after-hours on an emergency basis, with initial preliminary interpretation provided by [facility].
Anticipated Discharge: Within 24 hours
Subjective/Interval History
-
Date of Service: May 01, 2024
Patient seen and examined with mother and father at bedside. Patient agrees that her face is less swollen and erythematous compared to admission. She however continues to reports left facial pain rated 4/10 and now affecting her right face and
sometimes her vision. She reports intermittent mild headaches, neck pain and inability to fully open her mouth. She denies nasal discharge, chest pain, cough, trouble breathing, or any neurological symptoms.
Objective Data
-
Labs:
Laboratory Results
05/01/24
07:09
WBC Pending
Hgb Pending
Hct Pending
Plt Count Pending
Sodium Pending
Potassium Pending
Chloride Pending
Carbon Dioxide Pending
BUN Pending
Creatinine Pending
Glucose Pending
Calcium Pending
Vital Signs:
Vital Signs
Temp Pulse Resp BP Pulse Ox
98.1 F 70 14 93/54 95
04/30/24 23:30 04/30/24 23:30 04/30/24 23:30 04/30/24 23:30 04/30/24 23:30
I&O
04/30/24 05/01/24 05/02/24
06:59 06:59 06:59
Intake Total 1320 / 1320
Balance 1320 / 1320
Review of Systems
-
History Source: Patient
All other systems: Not reviewed unless documented
Constitutional: Reports No Symptoms; Denies Fever or Fatigue
EENT: Reports Mouth Pain and Mouth Swelling; Denies Sore Throat, Runny Nose, Blurry Vision, Eye Pain, Tinnitis, Bloody Nose or Hearing Loss
Respiratory: Reports No Symptoms
Cardiac: Reports No Symptoms
Abdomen/GI: Reports No Symptoms
Musculoskeletal: Reports No Symptoms
Skin: Reports No Symptoms
Neuro: Reports Headache (Mild); Denies Dizzy, Weakness, Numbness or Lightheadedness
Physical Exam
-
General: No Apparent Distress and Comfortable
HEENT: Other (Left facial swelling); Negative Hearing Impaired or Neck Masses
Respiratory: Clear to Auscultation; Negative Wheezes or Crackles
Cardiac: Regular Rhythm and S1/S2
GI: Soft, Nontender, Nondistended and Normal Bowel Sounds
Musculoskeletal: No Edema
Skin: Warm and Dry
Neuro: Awake, Alert, Oriented, No Motor Deficits and Nonfocal/Grossly Intact
Psych: Calm
Data Reviewed
-
CT Scan: Image personally visualized and interpreted, Report Reviewed by me and Discussed with Physician
Labs: Labs Reviewed by me
Old Records: Reviewed
[2024-05-01] MEDS: NEURONTIN 300 MG PO ×4 (07:39→23:01)
[2024-05-01] MEDS: VITAMIN C 500 MG PO ×2 (07:39→19:54)
[2024-05-01] MEDS: ROXICODONE 15 MG PO ×5 (07:40→23:01)
[2024-05-01] MEDS: CYMBALTA DELAYED RELEASE 30 MG PO (07:40)
[2024-05-01] MEDS: ATARAX 25 MG PO ×4 (07:40→23:01)
[2024-05-01] MEDS: VISBIOME 2 CAP PO (07:40)
[2024-05-01] MEDS: CYMBALTA DELAYED RELEASE 60 MG PO (07:40)
[2024-05-01 08:28] LABS: Hematocrit 33.2 % (37.0-47.0); Hemoglobin 11.3 g/dL (12.0-16.0); Mean Corpuscular Hgb 29.2 pg (27.0-31.0); Mean Corpuscular Volume 85.8 fL (81.0-99.0); Mean Platelet Volume 10.2 fL (7.4-10.4); Platelet Count 230 10^3/uL (130-400); Red Blood Cell Count 3.87 10^6/uL (4.20-5.40); Red Cell Dist. Width 13.4 % (11.5-14.5); White Blood Cell Count 7.5 10^3/uL (4.8-10.8)
[2024-05-01 09:05] LABS: Blood Urea Nitrogen 14 mg/dl (7-17); Calcium 8.6 mg/dl (8.4-10.2); Carbon Dioxide 29 mmol/L (22-30); Chloride 104 mmol/L (98-107); Estimated Creatinine Clearance 90 ml/min; Glucose 95 mg/dl (70-99); Potassium 4.1 mmol/L (3.5-5.1); Sodium 143 mmol/L (135-145); eGFR > 60.00
--- NOTE | 2024-05-01 09:11 | PTCARENOTE ---
assessed in AM. right and left face swelling noted. cont on IV abt. patient reported to this RN the Hx of neurogenic bladder. she has used cartheter to drain the urine this AM and got 400 ml out. patient was educated to letting the staff know of the
output and s/s of bladder distention. notified
[2024-05-01 09:30] VITALS: BP 107/77
--- NOTE | 2024-05-01 09:46 | PHA.VAN.FU ---
Vancomycin Assessment / Plan
- Assessment
Renal Function: Stable
WBC's are: Stable
In the past 24 hrs, patient has been: Afebrile
Concomitant Antimicrobials: amipillin/sulbactam
- Dosing Plan
Continue: vancomycin 1000 mg q12h - 1st dose 05/01 after 1500 mg LD 04/30
- Monitoring Plan
No level(s) ordered at this time: consider levels when pt reaches steady state ( after Tues jacey dose)
- Follow Up
Pharmacy will continue to follow.
Vancomycin Follow UP
- -
Patient Age: 29
Patient Sex: Female
Vancomycin Day #: 2
Indication: Skin And Soft Tissue
Requesting Provider: Dr. Wall
Height / Weight:
Height 5 ft 4 in
Actual Weight 68.266 kg
IBW in k.7
Pertinent Past Medical History: hx crohns disease on remicade
- Vital Signs / Lab Results
Temp Pulse Resp BP Pulse Ox
98.1 F 70 14 93/54 95
04/30/24 23:30 04/30/24 23:30 04/30/24 23:30 04/30/24 23:30 04/30/24 23:30
Lab Results - Hematology
04/29/24 05/01/24
05:08 07:09
WBC 8.0 7.5
Lab Results - Chemistry
04/29/24 05/01/24
05:08 07:09
BUN 13 14
Creatinine 0.7 0.8
Estimated Creat Clear 103 90
Microbiology Results
04/30/24 13:01 Nasal Screen MRSA (PCR) - Final
Nose MRSA not detected - performed by PCR methodology.
--- NOTE | 2024-05-01 11:02 | W.PN.ID1 ---
Date of Service
Date of Service: May 01, 2024
Today's Communication
- Transition Unasyn (d3) to Augmentin 875mg po bid through 05/04/24
-Pt requesting to stay another day to ensure she tolerates the Augmentin and for further pain control.
Assessment / Plan
# left canine tooth abscess s/p partial root canal 04/26
# facial cellulitis from tooth infection
- CT no abscess.
- Left face cellulitis improving. Right face cellulitis improved today.
- MRSA screen negative. DC Vancomycin (d2)
- Transition Unasyn (d3) to Augmentin 875mg po bid through 05/04/24
-Pt requesting to stay another day to ensure she tolerates the Augmentin and for further pain control.
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
Crohn's disease on Remicade
Celiac disease
Irritable bowel syndrome
anxiety
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
Chief Complaint
-: Cellulitis
Subjective / Review of Systems
Face better. c/o pain left side. Wants to stay another day.
Vital Signs / Physical Exam
Vital Signs
Vital Signs
Temp Pulse Resp BP Pulse Ox
98.3 F 82 16 107/77 96
05/01/24 09:30 05/01/24 09:30 05/01/24 09:30 05/01/24 09:30 05/01/24 09:30
Physical Exam
Constitutional: No Acute Distress and Comfortable
Head: Other (bilateral facial edema/erythema decreased. )
Cardiovascular: Regular Rate and S1/S2
Pulmonary: Clear
Gastrointestinal: Soft, Non Tender and Non Distended
Objective Data
Lab Data
Lab Results
05/01/24 07:09
05/01/24 07:09
Estimated Creat Clear 90 ml/min 05/01/24 07:09
Most recent labs reviewed.
Micro Results:
04/30/24 13:01 Nasal Screen MRSA (PCR) - Final
Nose MRSA not detected - performed by PCR methodology.
04/27/24 CT facial bones: Left-sided facial swelling. No focal collection or abscess. No evidence of subcutaneous emphysema.
[2024-05-01] MEDS: KLONOPIN 1 MG PO ×2 (11:34→19:54)
[2024-05-01] MEDS: AUGMENTIN 875 MG/125 MG 1 TABLET PO ×2 (11:34→19:54)
[2024-05-01] MEDS: NON-FORMULARY ITEM PO (11:35)
--- NOTE | 2024-05-01 11:40 | CM ---
Addendum entered by Flora Jones 05/01/24 12:50:
Patient is for possible discharge tomorrow, and case hardener notified of possible request for ballot.
Original Note:
Chart reviewed and plan is to home when stable.
Plan; Home when stable, no needs.
[2024-05-01] MEDS: TYLENOL 1000 MG PO (14:11)
[2024-05-01 15:30] VITALS: BP 114/76
[2024-05-01] MEDS: LOVENOX 40 MG SC (17:09)
[2024-05-01] MEDS: NON-FORMULARY ITEM 360 MG PO (22:58)
[2024-05-01] MEDS: NON-FORMULARY ITEM 3000 MCG PO (22:59)
[2024-05-01] MEDS: OXYCONTIN (CONTROLLED RELEASE) 15 MG PO (23:00)
[2024-05-01] MEDS: PEPCID 10 MG PO (23:00)
[2024-05-01] MEDS: MELATONIN 10 MG PO (23:01)
[2024-05-01 23:30] VITALS: BP 102/66
[2024-05-02] MEDS: ROXICODONE PO (03:35)
[2024-05-02] MEDS: ROXICODONE 15 MG PO ×2 (03:59→07:43)
[2024-05-02] MEDS: TYLENOL 1000 MG PO ×2 (04:01→10:01)
[2024-05-02 06:00] VITALS: BMI 25.9
[2024-05-02 07:00] VITALS: BP 103/67
[2024-05-02] MEDS: TORADOL 15 MG IV (07:15)
[2024-05-02] MEDS: DILAUDID 0.25 MG IV (07:16)
[2024-05-02] MEDS: CYMBALTA DELAYED RELEASE 60 MG PO (07:42)
[2024-05-02] MEDS: CYMBALTA DELAYED RELEASE 30 MG PO (07:42)
[2024-05-02] MEDS: VISBIOME 2 CAP PO (07:42)
[2024-05-02] MEDS: AUGMENTIN 875 MG/125 MG 1 TABLET PO (07:42)
[2024-05-02] MEDS: VITAMIN C 500 MG PO (07:42)
[2024-05-02] MEDS: NEURONTIN 300 MG PO (07:43)
[2024-05-02] MEDS: ATARAX 25 MG PO (07:43)
[2024-05-02 08:29] LABS: Hematocrit 32.1 % (37.0-47.0); Mean Corp Hgb Conc. 34.3 g/dL (33.0-37.0); Mean Corpuscular Hgb 29.3 pg (27.0-31.0); Mean Corpuscular Volume 85.4 fL (81.0-99.0); Mean Platelet Volume 10.3 fL (7.4-10.4); Platelet Count 240 10^3/uL (130-400); Red Blood Cell Count 3.76 10^6/uL (4.20-5.40); Red Cell Dist. Width 13.3 % (11.5-14.5); White Blood Cell Count 8.1 10^3/uL (4.8-10.8)
[2024-05-02 09:13] LABS: Blood Urea Nitrogen 14 mg/dl (7-17); Calcium 8.7 mg/dl (8.4-10.2); Carbon Dioxide 28 mmol/L (22-30); Chloride 103 mmol/L (98-107); Estimated Creatinine Clearance 90 ml/min; Glucose 85 mg/dl (70-99); Potassium 4.3 mmol/L (3.5-5.1); Sodium 143 mmol/L (135-145); eGFR > 60.00
--- NOTE | 2024-05-02 09:22 | W.PN.HOSP.TC ---
Today's Communication/Plan
-
Continue antibiotics
Discharge planning
Assessment / Plan
Assessment / Plan
IMPRESSION: 27-year-old female with PMH of Crohn's, IBD, celiac disease on chronic opioid dependence, who presented to ED on 04/28/2024 with left facial swelling, erythema and pain. She had a recent root canal done with instillation of
antibiotics due to suspected canine infection.
#Left facial cellulitis-Dental infection w/o abscess
-Cellulitis improved, facial swelling decreased.
-CT scan of face with IV contrast negative for collections or abscesses.
-Remains afebrile. WBC normal.
-Continue Augmentin 875 mg p.o. BID through 05/04/2024.
-Patient to follow-up with [facility] promptly after discharge.
#Chronic pain and narcotic dependance
-PDMP reviewed and patient is on oxycodone 10mg 5/D and oxy 10 HS, now on oxycodone 15 mg 5/D.
-Long discussion with patient with mother at bedside regarding The need to de-escalate narcotic use, Patient agreeable.
-Continues to complain pain although pain is manageable with current regimen of oxycodone.
-Called [facility] to update on pts pain management requirements, Dr. Santo wants patient to take the unused extra dose of pxycodon for breakthrough pain.
#History of Crohn's disease
-No evidence of flare.
-f/u at [facility] and Locally with Dr Garcia.
-Have been tried on stelara in past, remicaide is helping the best.
#Generalized anxiety disorder
-Continue clonazepam.
DVT prophylaxis-Lovenox
CODE STATUS-full code
Data:
Facial CT w/ IV contrast 04/27/24:
Left-sided facial swelling. No focal collection or abscess. No evidence of subcutaneous emphysema.
The examination was performed after-hours on an emergency basis, with initial preliminary interpretation provided by [facility].
Anticipated Discharge: Today
Subjective/Interval History
-
Date of Service: May 02, 2024
Patient seen and examined with saturnino� in the room.She reports feeling better today and agrees that her facial and erythema swelling has decreased. She stated that she is unsure about pain management when she gets out of the hospital. We discussed
that we have called her pain management doctor, who wants patient to take her extra dose of oxycodone for breakthrough pain. She denies headache, chest pain, abdominal pain, shortness of breath, palpitations, nausea/vomiting/diarrhea.
Objective Data
-
Labs:
Laboratory Results
05/02/24
07:17
WBC 8.1
Hgb 11.0 L
Hct 32.1 L
Plt Count 240
Sodium 143
Potassium 4.3
Chloride 103
Carbon Dioxide 28
BUN 14
Creatinine 0.8
Glucose 85
Calcium 8.7
Vital Signs:
Vital Signs
Temp Pulse Resp BP Pulse Ox
98.0 F 81 14 102/66 97
05/01/24 23:30 05/01/24 23:30 05/01/24 23:30 05/01/24 23:30 05/01/24 23:30
I&O
05/01/24 05/02/24 05/03/24
06:59 06:59 06:59
Intake Total 1320 / 1320 1380 / 1380
Balance 1320 / 1320 1380 / 1380
Review of Systems
-
History Source: Patient
All other systems: Not reviewed unless documented
Constitutional: Reports No Symptoms; Denies Fever or Fatigue
EENT: Reports Mouth Pain and Mouth Swelling; Denies Sore Throat, Runny Nose, Blurry Vision, Eye Pain, Tinnitis, Bloody Nose or Hearing Loss
Respiratory: Reports No Symptoms
Cardiac: Reports No Symptoms
Abdomen/GI: Reports No Symptoms
Musculoskeletal: Reports No Symptoms
Skin: Reports No Symptoms
Neuro: Reports Headache (Mild); Denies Dizzy, Weakness, Numbness or Lightheadedness
Physical Exam
-
General: No Apparent Distress and Comfortable
HEENT: Other (Left facial swelling); Negative Hearing Impaired or Neck Masses
Respiratory: Clear to Auscultation; Negative Wheezes or Crackles
Cardiac: Regular Rhythm and S1/S2
GI: Soft, Nontender, Nondistended and Normal Bowel Sounds
Musculoskeletal: No Edema
Skin: Warm and Dry
Neuro: Awake, Alert, Oriented, No Motor Deficits and Nonfocal/Grossly Intact
Psych: Calm
Data Reviewed
-
CT Scan: Image personally visualized and interpreted, Report Reviewed by me and Discussed with Physician
Labs: Labs Reviewed by me
Old Records: Reviewed
--- NOTE | 2024-05-02 10:20 | W.PN.ID1 ---
Date of Service
Date of Service: May 02, 2024
Today's Communication
- Continue Augmentin 875mg po bid through 05/04/24.
Assessment / Plan
# left canine tooth abscess s/p partial root canal 04/26
# facial cellulitis from tooth infection, resolving
- CT no abscess.
- MRSA screen negative.
- Continue Augmentin 875mg po bid through 05/04/24
- Can dc home from ID standpoint.
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
Crohn's disease on Remicade
Celiac disease
Irritable bowel syndrome
anxiety
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
Chief Complaint
-: Cellulitis
Subjective / Review of Systems
Tolerating Augmentin.
Face improving.
Vital Signs / Physical Exam
Vital Signs
Vital Signs
Temp Pulse Resp BP Pulse Ox
97.6 F 89 19 103/67 96
05/02/24 07:00 05/02/24 07:00 05/02/24 07:00 05/02/24 07:00 05/02/24 07:00
Physical Exam
Constitutional: No Acute Distress
Head: Other (Erythema/edema resolved.)
Gastrointestinal: Soft, Non Tender and Non Distended
Objective Data
Lab Data
Lab Results
05/02/24 07:17
05/02/24 07:17
Estimated Creat Clear 90 ml/min 05/02/24 07:17
Most recent labs reviewed.
Micro Results:
04/30/24 13:01 Nasal Screen MRSA (PCR) - Final
Nose MRSA not detected - performed by PCR methodology.
04/27/24 CT facial bones: Left-sided facial swelling. No focal collection or abscess. No evidence of subcutaneous emphysema.
--- NOTE | 2024-05-02 10:55 | CM ---
Home when stable, no needs.
Plan; Home when stable. No needs.
[2024-05-02] MEDS: MAGIC OR MIRACLE MOUTHWASH 10 ML PO (11:39)
[2024-05-02 11:49] VITALS: BP 112/71
[2024-05-02 12:00] VITALS: BP 102/71
--- NOTE | 2024-05-02 12:00 | PTCARENOTE ---
PRN dilaudid and toradol given for severe left face pain. patient c/o soreness in her mouth. 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 d/c instructions explained and understanding verbalized. all belongings gathered and sent with the patient. family
at bedside. w/c transport offered to d/c area
--- NOTE | 2024-05-02 13:15 | W.PN.UPDATE ---
Update Note
Progress Note Update
27-year-old female with Crohn's disease on immunosuppression presented with facial pain erythema and swelling.� Patient was recently at dentist where a root canal was performed.� She also had injection of antibiotic to the site of infection.� Came
worsening pain
Face with no edema noted today,
CVS: S1-S2 normal
Chest: CTA B/L
Abdomen: Soft, NT
Extremities: No edema,
# Facial cellulitis
Recent dental procedure-left canine tooth abscess s/p partial root canal 04/26
CT of the face with IV contrast -Left-sided facial swelling. No focal collection or abscess. No evidence of subcutaneous emphysema.
Vanco and Unasyn (treated with clindamycin as outpatient)- changed to Augmentin
Infectious disease consultation appreciated
Dr. Fouzia Durant recommends outpatient follow-up with patient's dentist I discussed today
# Chronic pain-on duloxetine and gabapentin, opiate dependent on OxyContin 10 Mg at bedtime and oxycodone 10 mg every 4 hours as needed
# Crohn's disease-on Remicade.� Hold in setting of infection. Is due 05/02/24 ( advised to hold off)
# Anxiety-continue Klonopin, hydroxyzine
# Celiac disease
# IBS
# Chronic tissue disorder-unspecified
# DVT prophylaxis-Lovenox
# Full code
D/W
Spoke to . Recommended that patient take extra 1 to 2 tablets of oxycodone short acting if needed for the next 4 to 5 days. Made patient aware to should have enough supply from the 4 days of her being here.
Discussed with nursing
Discussed with family at bedside
More than 30 minutes spent in discharge including
Final examination of the patient
Summarizing hospital stay
Instructions for continuing care to all relevant caregivers
Preparation of discharge records, prescriptions, and referral forms
Total time spent (in minutes): 32 min
--- NOTE | 2024-05-02 18:28 | W.DCSUMMARY ---
Discharge Summary
Discharge Data
Date of Admission: 04/28/24
Date of Discharge: 05/02/24
-
Pending Results: No
Hospital Course
Discharging Physician : Joanne Lamb MD ; Brennen Suarez MD
Disposition : Home
Primary care physician : Nadege Dyson
Principal Discharge diagnosis : Facial cellulitis, left canine tooth infection.
Chronic Discharge diagnosis : Crohn's disease, anxiety, celiac disease, IBS, chronic joint pain
Hospital Course :27-year-old female with PMH of chron's disease, IBD, celiac disease, chronic opioid dependence for suspected enthesitis who presented to ED on 04/28/2024 with facial swelling erythema and pain. Patient had a partial root canal
performed with antibiotic injection for suspected left upper canine infection. Patient came in with worsening pain and was admitted for further evaluation and management.
While in the ED, patient was treated with dental nerve block once, Dilaudid and ketorolac. She was also started on clindamycin prior to admission.
While in the hospital, patient was seen in conjunction with infectious disease and her pain was well-managed on Dilaudid, ketorolac, oxycodone and nightly OxyContin. Her MRSA screen was negative, facial CT scan showed no abscess and patient's
antibiotics was changed to Augmentin.
Condition on discharge: Awake, alert and oriented x3, answer question properly, able to make own decision and take care of activities of daily living, speech clear and comprehensive, continent of the bowel and bladder, ambulate without rehab care assistant.
Patient is medically stable to go home where lives with the family, and has been instructed to follow-up with her dentist, primary care physician and pain management within 1 week of discharge. She has also been instructed to follow-up with
to decide the next dose of Remicade.
Important imaging findings :
Left-sided facial swelling. No focal collection or abscess. No evidence of subcutaneous emphysema.
The examination was performed after-hours on an emergency basis, with initial preliminary interpretation provided by [facility].
Discharge Plan
-
Patient Disposition: Home (Routine Discharge)
Discharge Diagnosis/Procedures: Facial cellulitis, left canine tooth infection, Crohn's disease, anxiety, celiac disease, IBS, chronic joint pain
Condition: Good
Diet: No restrictions
Activity: No restrictions
Driving Restrictions: As prior to admission
Bathing Restrictions: None
Activity Restrictions/Additional Instructions:
Take Vit A supplements only per guidance of a physician. Follow up with your dentist
Referrals:
Nadege Dyson PA [Family Provider] - in less than 1 week
Gregg Santo MD [Non-Admitting Privileges] -
Shante Garcia MD [Active] -
Additional Discharge Medication Instructions: OK to take additional 1-2 tablets of short acting Oxycodone for the next 4-5 days if needed for breakthrough pain. Stop Clindamycin. Talk to re infection to decide the next dose of Remicade.
Prescriptions:
New
amoxicillin-pot clavulanate 875-125 mg Tablet
1 tab PO Q12 Qty: 5 0RF
lidocaine HCl [Lidocaine Viscous] 2 % Solution
10 ml PO Q4HPRN PRN (Reason: MOUTH ULCERS) Qty: 100 0RF
senna 8.6 mg capsule
8.6 mg PO HS PRN (Reason: constipation) Qty: 30 0RF
polyethylene glycol 3350 [Miralax] 17 gram powder in packet
17 g PO DAILY PRN (Reason: conatipation) Qty: 30 0RF
Continued
oxycodone 10 mg Tablet
10 mg PO Q4HPRN PRN (Reason: severe pain)
clonazepam 1 mg Tablet
1 mg PO BID@1130,2000
fexofenadine 180 mg Tablet
360 mg PO QPM
acetaminophen [Tylenol Extra Strength] 500 mg Tablet
1,000 mg PO Q6HPRN PRN (Reason: mild pain)
famotidine [Pepcid] 20 mg Tablet
10 mg PO QPM
ascorbic acid (vitamin C) [Vitamin C] 500 mg Tablet
500 mg PO BID
infliximab [Remicade] 100 mg Recon Soln
7.5 mg IV Q6W
Rx Instructions:
7.5 mg/kg
gabapentin 300 mg Capsule
300 mg PO QID
hydroxyzine pamoate 25 mg capsule
25 mg PO QID
duloxetine [Cymbalta] 30 mg Capsule,Delayed Release(Dr/Ec)
30 mg PO DAILY
Rx Instructions:
take with 60mg
duloxetine [Cymbalta] 60 mg Capsule,Delayed Release(Dr/Ec)
60 mg PO DAILY
Rx Instructions:
take with 30mg
melatonin 10 mg Tablet
10 mg PO HS
oxycodone [OxyContin] 10 mg Tablet,Oral Only,Ext.Rel.12 Hr
10 mg PO HS
vitamin A 3,000 mcg (10,000 unit) Capsule
3,000 mcg PO HS
Magic Mouthwash
1 dose PO Q3HPRN PRN (Reason: mouth pain/thrush)
Rx Instructions:
Benadryl/Lidocaine/Mylanta swich and spit every 3 hours
Discontinued
clindamycin HCl 300 mg capsule
300 mg PO Q6H Qty: 28 0RF
Discharge Orders:
Discharge Patient (As Directed); Ordered 05/02/24
Ordered By: Brennen Suarez
Discharge Date and Time
Discharge Date/Time: 05/02/24 12:21
Print Language: FAROESE
== END 2024-05-02 12:21 | disposition home or self-care (01) | DRG 603 ==
LOC: 4 WEST ACU 09:14
PROVIDERS: Hospitalist; Student in an Organized Health Care Education/Training Program; ADMITTING PHYSICIAN Internal Medicine; ATTENDING PHYSICIAN Hospitalist; CONSULT PHYSICIAN Internal Medicine Infectious Disease; EMERGENCY PHYSICIAN Student in an Organized Health Care Education/Training Program; FAMILY PHYSICIAN Physician Assistant Medical
DX: L03.211 Cellulitis of face (principal); D84.821 Immunodeficiency due to drugs; F11.20 Opioid dependence, uncomplicated; K50.90 Crohn's disease, unspecified, without complications; K04.7 Periapical abscess without sinus; G89.4 Chronic pain syndrome; F41.1 Generalized anxiety disorder
CPT/HCPCS: 64999; 80048; 85025; 85027; 87641; 96365; 96375; 96376; 99284

== ENCOUNTER 2024-05-09 13:19 | Inpatient (IN) | payer OTHER, SELFPAY ==
[2024-05-09 07:57] VITALS: BP 115/84
--- NOTE | 2024-05-09 09:27 | ED.SKININJ ---
HPI-Injury
<Alphonso Garibay PA-C - Last Filed: 05/09/24 12:09>
General
Chief Complaint: Eye Problems
Source: patient
Exam Limitations: none
Time Seen by Provider: 05/09/24 09:05
History of Present Illness-Injury
Initial Injury comments:
29-year-old female history of Crohn's on Remicade presents with recurrent left-sided facial swelling. This started 2 days ago. She last received her Remicade infusion yesterday. She was discharged from this hospital 1 week ago for a facial
cellulitis. She completed a course of oral Augmentin 3 days ago. The symptoms started less than 24 hours after finishing the Augmentin. She also notes she had another partial root canal procedure on the right side of her face yesterday. She
notes chills and sweats at home as well as a fever. Temperature at home has been 99.8. Her symptoms on her face are getting worse. Upon discharge her symptoms were improved. She is opioid dependent. She denies cough pain. No other
Past History
<Alphonso Garibay PA-C - Last Filed: 05/09/24 12:09>
Past History
ED Past Medical History: Other (Crohn's disease, celiac, IBS, anxiety)
ED Past Surgical History: Orthopedic and Other (Bowel surgery)
Social History
Tobacco: Non-smoker
Alcohol: Occasional
Drug: None
Personal: Other (Engage)
Living: with family
Employment: Employed
Family History
Family History: Other (her dads mother had Juvenile RA, mother has palpitations)
Phy Exam
<Alphonso Garibay PA-C - Last Filed: 05/09/24 12:09>
Physical Exam
Physical Exam:
General: Well-appearing female no acute respiratory distress
HEENT: Normocephalic swelling noted in the periorbital area mainly inferior on the left eye. Bilateral cheeks are slightly swollen and erythematous. No trismus neck is supple
Heart: Regular rate and rhythm no murmurs
Lungs: Clear no wheeze
Extremities: No cyanosis
Course
<Alphonso Garibay PA-C - Last Filed: 05/09/24 12:09>
Orders/Labs/Results
Orders:
Orders
05/09/24 09:25
CT Facial Bones W/ Iv Contrast Urgent
Comment:
Reason For Exam: periorbital swelling
HYDROmorphone [Dilaudid] 0.5 mg IV NOW STA
Ketorolac [Toradol] 15 mg IV NOW STA
05/09/24 09:30
Test Result ONCE
05/09/24 09:33
Complete Blood Count/With Diff Urgent
Comprehensive Metabolic Panel Urgent
HCG, Serum Qualitative Screen Urgent
05/09/24 12:06
HYDROmorphone [Dilaudid] 0.5 mg IV NOW STA
Vancomycin [Vancocin] 1,500 mg 0.9% Sodium Chloride 500 ml [Nss] 500 ml IV NOW
05/09/24 12:07
Ampicillin/Sulbactam 3 G [Unasyn] 3 gm 0.9% Sodium Chloride 100 ml [Nss] 100 ml IV NOW
Abnormal Lab Results
05/09/24
09:33
RBC 4.14 L 10^6/uL
(4.20-5.40)
Hgb 11.9 L g/dL
(12.0-16.0)
Hct 35.7 L %
(37.0-47.0)
Eosinophils % 8.6 H %
(0-6)
BUN 20 H mg/dl
(7-17)
05/09/24 09:33
05/09/24 09:33
Vital Signs
Initial and Last Documented VS:
Initial Vital Signs
Temp Pulse Resp BP Pulse Ox
98.9 F 125 19 115/84 96
05/09/24 07:57 05/09/24 07:57 05/09/24 07:57 05/09/24 07:57 05/09/24 07:57
Last Documented Vital Signs
Temp Pulse Resp BP Pulse Ox
98.9 F 125 14 115/84 96
05/09/24 07:57 05/09/24 07:57 05/09/24 12:00 05/09/24 07:57 05/09/24 07:57
<Johnathan Kelsey, DO - Last Filed: 05/09/24 10:34>
Orders/Labs/Results
Orders:
Orders
05/09/24 09:25
CT Facial Bones W/ Iv Contrast Urgent
Comment:
Reason For Exam: periorbital swelling
HYDROmorphone [Dilaudid] 0.5 mg IV NOW STA
Ketorolac [Toradol] 15 mg IV NOW STA
05/09/24 09:30
Test Result ONCE
05/09/24 09:33
Complete Blood Count/With Diff Urgent
Comprehensive Metabolic Panel Urgent
HCG, Serum Qualitative Screen Urgent
05/09/24 12:06
HYDROmorphone [Dilaudid] 0.5 mg IV NOW STA
Vancomycin [Vancocin] 1,500 mg 0.9% Sodium Chloride 500 ml [Nss] 500 ml IV NOW
05/09/24 12:07
Ampicillin/Sulbactam 3 G [Unasyn] 3 gm 0.9% Sodium Chloride 100 ml [Nss] 100 ml IV NOW
Abnormal Lab Results
05/09/24
09:33
RBC 4.14 L 10^6/uL
(4.20-5.40)
Hgb 11.9 L g/dL
(12.0-16.0)
Hct 35.7 L %
(37.0-47.0)
Eosinophils % 8.6 H %
(0-6)
BUN 20 H mg/dl
(7-17)
05/09/24 09:33
05/09/24 09:33
Vital Signs
Initial and Last Documented VS:
Initial Vital Signs
Temp Pulse Resp BP Pulse Ox
98.9 F 125 19 115/84 96
05/09/24 07:57 05/09/24 07:57 05/09/24 07:57 05/09/24 07:57 05/09/24 07:57
Last Documented Vital Signs
Temp Pulse Resp BP Pulse Ox
98.9 F 125 14 115/84 96
05/09/24 07:57 05/09/24 07:57 05/09/24 12:00 05/09/24 07:57 05/09/24 07:57
<Alphonso Garibay PA-C - Last Filed: 05/09/24 12:09>
MDM/Problems Addressed
Differential Diagnosis Includes:
Recurrent left sided facial and periorbital swelling. Consider cellulitis versus periorbital cellulitis. She does complain of pain behind the left eye but denies any vision change. Extract motions are intact.
Will recheck labs. CT with IV contrast of the face pending to evaluate for deeper infection. Patient is immunosuppressed and had recurrent infection. Have low threshold to keep in hospital for IV antibiotics
<Alphonso Garibay PA-C - Last Filed: 05/09/24 12:09>
*Critical Care Note
Total Time (30-74mins, 75-104mins- exclusive of procedures): Not Applicable
<Alphonso Garibay PA-C - Last Filed: 05/09/24 12:09>
Update Note
Update Note:
CT shows facial swelling but no drainable collection or abscess. Concern for possible immunosuppressed state and recurrent cellulitis of the face. Discussed with emergency room attending Jonathan mid to hospital. Vancomycin and Unasyn ordered
ED Attending Note
<Alphonso Garibay PA-C - Last Filed: 05/09/24 12:09>
-
Portions of this chart may have been created with voice recognition software.� Occasional wrong word or��sound alike� substitutions may have occurred due to the inherent limitations of voice recognition software.
<Johnathan Kelsey DO - Last Filed: 05/09/24 10:34>
ED Attending Note
Patient seen and examined by attending physician: Yes
I performed the substantive portion of visit, reviewed & personally made and approve the management plan that is documented in note by myself or JACE.: Yes
ED Attending Note:
I have seen and evaluated the patient with a [id number] encounter. I have spoken to the advance practicer provider and involved in the medical history, the physical exam, medical decision making.
Evaluation and management service: agree unless noted differently below.
Results interpretation: agree unless noted differently below.
Focused HPI: 29-year-old female presenting with recurrent cellulitic changes around her left eye. Patient was recently started on Augmentin for the same thing. When she stopped the antibiotic, the cellulitis returned. Patient is very concerned
because she is immunocompromised. Patient has a history of Crohn's disease and recently received Remicade injection
Physical exam: Mild left periorbital cellulitis noted. No proptosis
Medical Decision Making: Will obtain CT imaging to look for deep space infection. Given her immunocompromise state and failing outpatient antibiotics, will give dose of IV antibiotics
Discharge Plan
Departure
Patient Disposition: Admit
Date of Disposition: 05/09/24
Time of Disposition: 12:09
Admit to: Telemetry
Presentation/result/management discussed w/ accepting MD/DO: Hospitalist
Discharge Problem:
Cellulitis of face
Prescriptions:
No Action
oxycodone 10 mg Tablet
10 mg PO Q4HPRN PRN (Reason: severe pain)
clonazepam 1 mg Tablet
1 mg PO BID@1130,1999
fexofenadine 180 mg Tablet
360 mg PO QPM
acetaminophen [Tylenol Extra Strength] 500 mg Tablet
1,000 mg PO Q6HPRN PRN (Reason: mild pain)
famotidine [Pepcid] 20 mg Tablet
10 mg PO QPM
ascorbic acid (vitamin C) [Vitamin C] 500 mg Tablet
500 mg PO BID
infliximab [Remicade] 100 mg Recon Soln
7.5 mg IV Q6W
Rx Instructions:
7.5 mg/kg
gabapentin 300 mg Capsule
300 mg PO QID
hydroxyzine pamoate 25 mg capsule
25 mg PO QID
duloxetine [Cymbalta] 30 mg Capsule,Delayed Release(Dr/Ec)
30 mg PO DAILY
Rx Instructions:
take with 60mg
duloxetine [Cymbalta] 60 mg Capsule,Delayed Release(Dr/Ec)
60 mg PO DAILY
Rx Instructions:
take with 30mg
melatonin 10 mg Tablet
10 mg PO HS
oxycodone [OxyContin] 10 mg Tablet,Oral Only,Ext.Rel.12 Hr
10 mg PO HS
vitamin A 3,000 mcg (10,000 unit) Capsule
3,000 mcg PO HS
Magic Mouthwash
1 dose PO Q3HPRN PRN (Reason: mouth pain/thrush)
Rx Instructions:
Benadryl/Lidocaine/Mylanta swich and spit every 3 hours
amoxicillin-pot clavulanate 875-125 mg Tablet
1 tab PO Q12 Qty: 5 0RF
lidocaine HCl [Lidocaine Viscous] 2 % Solution
10 ml PO Q4HPRN PRN (Reason: MOUTH ULCERS) Qty: 100 0RF
senna 8.6 mg capsule
8.6 mg PO HS PRN (Reason: constipation) Qty: 30 0RF
polyethylene glycol 3350 [Miralax] 17 gram powder in packet
17 g PO DAILY PRN (Reason: conatipation) Qty: 30 0RF
Referrals:
Nadege Dyson PA [Family Provider] -
Interventions
Interventions:
*Risk Screen - Suicide Last Done: 05/09/24 09:48
*Neglect/Abuse Screening Last Done: 05/09/24 09:48
Discharge Date and Time
Print Language: CZECH
[2024-05-09] MEDS: TORADOL 15 MG IV (09:39)
[2024-05-09] MEDS: DILAUDID 0.5 MG IV ×2 (09:40→12:14)
[2024-05-09 09:47] VITALS: BMI 26.5
[2024-05-09 09:48] LABS: % Basophils 0.4 % (0-2); % Eosinophils 8.6 % (0-6); % Immature Granulocytes 0.3 % (0-0.5); % Lymphocytes 38.4 % (20.5-51.1); % Monocytes 8.3 % (1.7-9.3); Absolute Eosinophils 0.7 10^3/uL (0-0.7); Absolute Monocytes 0.6 10^3/uL (0.1-0.6); Absolute Neutrophils 3.4 10^3/uL (1.4-6.5); Hematocrit 35.7 % (37.0-47.0); Hemoglobin 11.9 g/dL (12.0-16.0); Mean Corp Hgb Conc. 33.3 g/dL (33.0-37.0); Mean Corpuscular Hgb 28.7 pg (27.0-31.0); Mean Corpuscular Volume 86.2 fL (81.0-99.0); Mean Platelet Volume 9.6 fL (7.4-10.4); Nucleated Red Blood Cells % 0 %; Platelet Count 246 10^3/uL (130-400); Red Blood Cell Count 4.14 10^6/uL (4.20-5.40); Red Cell Dist. Width 13.6 % (11.5-14.5); White Blood Cell Count 7.7 10^3/uL (4.8-10.8)
[2024-05-09 10:00] LABS: HCG, Serum Qualitative Screen Negative
[2024-05-09 10:09] LABS: ALT (SGPT) 25 U/L (0-35); AST (SGOT) 28 U/L (14-36); Alkaline Phosphatase 66 U/L (38-126); Blood Urea Nitrogen 20 mg/dl (7-17); Calcium 9.3 mg/dl (8.4-10.2); Carbon Dioxide 29 mmol/L (22-30); Chloride 100 mmol/L (98-107); Estimated Creatinine Clearance 90 ml/min; Glucose 82 mg/dl (70-99); Potassium 3.7 mmol/L (3.5-5.1); Sodium 140 mmol/L (135-145); Total Bilirubin 0.3 mg/dl (0.2-1.3); Total Protein 7.5 g/dl (6.3-8.2); eGFR > 60.00
--- NOTE | 2024-05-09 12:24 | HPS.HSE ---
Family Physician
-
Family Physician: Nadege Dyson
Chief Complaint
-
Left-sided lower orbit erythema with swelling to left cheek, erythema to left cheek and swelling to right cheek
History of Present Illness
29-year-old female who reports she had a left-sided dental pain in her canine tooth #11 starting on 04/24 where she started amoxicillin for 3 days on 04/26 she had a root canal then the next day woke up with a fever became to the ER was placed on
clindamycin from the to the then came back on the APR 28 to MAY 02 and was admitted with a Facial Cellulitis that had extended over to the right side of her face she was seen by infectious disease with medication changed to oral
Augmentin from May 02 to May 06. She reports the swelling was starting to resolve on the left side when she developed pain in her right canine #6 yesterday 05/08. She was seen by her dentist and had a partial root canal completed but not
finished due to concern for possible buildup of infection at the root. She then proceeded to receive her Remicade infusion. She states she did not speak with her GI doctor about the Remicade infusion and multiple teeth abscesses, although she
states she spoke with the nurse and dentist who did not say anything. This morning on 1111 she woke up with a 99.8 low-grade temp at 7 AM for which she took Tylenol 1000 mg. She came to the ER for erythema starting back on the left orbit area with
some swelling to the left cheek and mild swelling to the right cheek at the site of tooth #6 with a most recent root canal
She follows with pain management she states for unspecified joint pain in her toes, knees, wrist, ankles and fingers. She has been on medication for several years including OxyContin 10 mg at bedtime with OxyContin 10 mg every 4 as needed and
gabapentin 300 mg 4 times daily. She is in the process of getting permanent crowns to her upper 6 teeth for which she has current temporary crowns in place.
Past medical history Crohn's disease on Remicade managed by GI Dr. Garcia, celiac, IBS, anxiety, robotic rectopexy for prolapsed rectum age 26
Medical History
Past Medical History
Past Medical History: Reports Other
Additional Past Medical History:
Crohn's disease on Remicade managed by GI Dr. Garcia
Celiac
IBS
Anxiety
Past Surgical History: Reports Other
Additional Past Surgical History:
Heel deformities removed x 2 wisdom teeth extraction
Robotic rectopexy for prolapsed rectum age 26
Social History
Tobacco: Non-smoker
Alcohol: None
Drug: None
Personal: Other (Engaged)
Living: With Family
Family History
Family History: Other (Mother history of thyroid disease, depression, pancreatic enzyme deficiency, sister type I diabetic, asthma, dad hypertension, hyperlipidemia, brother asked Buerger's autism spectrum)
Allergies / Home Medications
Allergies reflects when Allergies were last updated in [facility].
Home Medications with original date entered in [facility]
Allergy/Medication List:
Allergies
Allergy/AdvReac Type Severity Reaction Status Date / Time
egg Allergy Anaphylaxis Verified 05/09/24 08:01
gluten Allergy stomach Verified 05/09/24 08:01
pain
shrimp Allergy Unknown Verified 05/09/24 08:01
tree nut Allergy Hives Verified 05/09/24 08:01
prochlorperazine AdvReac Intermediate Akathesia Verified 05/09/24 08:01
Home Medications
oxycodone 10 mg tablet 10 mg PO Q4HPRN PRN severe pain 02/12/23
acetaminophen 500 mg tablet (Tylenol Extra Strength) 1,000 mg PO Q6HPRN PRN mild pain 01/15/24
ascorbic acid (vitamin C) 500 mg tablet (Vitamin C) 500 mg PO BID 01/15/24
clonazepam 1 mg tablet 1 mg PO BID@1130,2000 01/15/24
duloxetine 30 mg capsule,delayed release (Cymbalta) 30 mg PO DAILY 01/15/24
duloxetine 60 mg capsule,delayed release (Cymbalta) 60 mg PO DAILY 01/15/24
famotidine 20 mg tablet (Pepcid) 10 mg PO HS 01/15/24
fexofenadine 180 mg tablet 360 mg PO HS 01/15/24
gabapentin 300 mg capsule 300 mg PO QID 01/15/24
hydroxyzine pamoate 25 mg capsule 25 mg PO QID 01/15/24
infliximab 100 mg intravenous solution (Remicade) 7.5 mg IV Q6W 01/15/24
melatonin 10 mg tablet 10 mg PO HS 01/15/24
oxycodone 10 mg tablet,crush resistant,extended release 12 hr (OxyContin) 10 mg PO HS 01/15/24
vitamin A 3,000 mcg (10,000 unit) capsule 3,000 mcg PO HS 02/26/24
Magic Mouthwash 1 dose PO Q3HPRN PRN mouth pain/thrush 04/28/24
amoxicillin 875 mg-potassium clavulanate 125 mg tablet 1 tab PO Q12 Infection #5 tabs 05/02/24
lidocaine HCl 2 % mucosal solution (Lidocaine Viscous) 10 ml PO Q4HPRN PRN MOUTH ULCERS #100 mL 05/02/24
hydromorphone 4 mg tablet 4 mg PO Q4HPRN PRN severe pain 05/09/24
therapeutic multivitamin 1 tab PO HS 05/09/24
Review of Systems
-
History Source: Patient and Family (Mary� at bedside)
A 12 point ROS was completed and negative except as noted: Yes
Constitutional: Reports Fever (Reported low-grade 90 9.8F); Denies Chills
EENT: Reports Other (Swelling to left lower orbit with erythema, swelling left cheek no erythema, slight swelling to right cheek with no erythema no intraoral abscesses appreciated no tenderness along right mandible however there is some breakdown
of her right posterior molar #3); Denies Sore Throat, Mouth Swelling or Runny Nose
Respiratory: Denies Cough or Trouble Breathing
Cardiac: Denies Chest Pain, Diaphoresis, Palpitations or Syncope
Abdomen/GI: Denies Abdominal Pain, Nausea, Vomiting, Diarrhea, Constipated, Bloody Stools or Black Stools
: Denies Dysuria, Frequency, Flank Pain, Incontinence, Difficulty Voiding or Urgency
Musculoskeletal: Denies Joint Pain or Edema
Skin: Denies Itching or Rash
Neurological: Denies Dizzy or Headache
Endocrine: Reports No Symptoms
Hematologic/Lymphatic: Reports No Symptoms
Psych: Reports Calm
Physical Exam
Vital Signs
Vital Signs
Temp Pulse Resp BP Pulse Ox
98.9 F 125 14 115/84 96
05/09/24 07:57 05/09/24 07:57 05/09/24 12:00 05/09/24 07:57 05/09/24 07:57
Physical Exam
General: Conversant; No Fever or Chills
HEENT: NormoCephalic, Anicteric, PERRLA, [place] Conjunctivae, No Ptosis and Other (Swelling to left lower orbit with erythema, swelling left cheek no erythema, slight swelling to right cheek with no erythema no intraoral abscesses appreciated no
tenderness along right mandible however there is some breakdown of her right posterior molar #3)
Respiratory: Clear; No Wheezes, Rales or Rhonchi
Cardiac: S1/S2 and Tachycardia (Sinus tachycardia); No Murmur, Rub, Gallop, Peripheral Edema or JVD
GI: Soft, Non Tender, Normal Bowel Sounds and No Hepatosplenomegaly
Rectal: Deferred by Provider
Genito-urinary: Deferred by me
Musculoskeletal: No Clubbing, No Cyanosis and No Edema
Skin: Warm and Dry; No Rash
Neuro: AO x 3, No Motor Deficits, Nonfocal/grossly intact, Cranial Nerves Intact and No Sensory Deficits; No Slurred Speech, Facial Droop, Tremors or Sedated
Psych: Calm
Laboratory Results
-
05/09/24 09:33
05/09/24 09:33
Laboratory Results
Total Bilirubin 0.3 mg/dl (0.2-1.3) 05/09/24 09:33
AST 28 U/L (14-36) 05/09/24 09:33
ALT 25 U/L (0-35) 05/09/24 09:33
Alkaline Phosphatase 66 U/L (38-126) 05/09/24 09:33
Data Reviewed
-
CT Scan: Report Reviewed by me
Lab Data: Labs Reviewed by me
Impression/Plan
-
Impression plan:
Admit to [facility]
#Recurrent facial cellulitis with right mandibular air/fluid secondary to root canal concern for abscess
#Patient with root canal yesterday #6 on 05/08/2024 tooth
#History of facial cellulitis 04/28 - 05/02/2024 post Partial Root canal left upper canine tooth #11 due to large abscess root- TX' D with with prior Clindamycin x 2.5 days changed to oral Augmentin APR 28-
-Had Remicade infusion yesterday 05/08/2024 ( her Gi Dr is not aware she had this with ongoing infections-patient made aware she must contact her GI doctor before having Remicade with any infection
-Finished oral Augmentin on 05/06/2024
-WBC 7.7, afebrile, HR 125, normotensive 115/84
-IV Vancomycin, IV Unasyn-will continue IV Unasyn per OMFS recommendations
-IV Dilaudid, IV Toradol, continue oxycodone 10 mg every 6 as needed as patient is on regularly and oxycodone 10 mg at bedtime
-Consult OMFS-Dr. 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 facial bones with IV contrast: 1. Small none of bilateral frontal/periorbital soft tissue swelling
2. Small amount of abnormal air and fluid immediately just adjacent to the right mandible. (the pt has no pain Right lower mandilble and not site of Root canal)
Small abscess formation cannot be excluded
#Chronic pain unspecified to joints toes, knees, wrists, ankles, fingers Narcotic dependent
-Follows with [facility] pain management
-Continue gabapentin 3 mg 4 times daily
-Continue OxyContin 10 mg at bedtime and oxycodone 10 mg every 4 hours severe pain
#Crohn's disease
-Patient on Remicade had last infusion yesterday 05/08/2024
#Celiac disease
-Soft diet/celiac diet
#Hx IBS hx
#Hx anxiety
-Continue with Cymbalta 90 mg daily, clonazepam 1 mg p.o. twice daily
#GERD
-Continue Pepcid 10 mg every afternoon
#Insomnia
Continue melatonin 10 mg at bedtime
DVT prophylaxis
SCDs
Full code
[2024-05-09] MEDS: UNASYN IV ×3 (12:57→23:11)
--- NOTE | 2024-05-09 13:32 | W.PN.UPDATE ---
Update Note
Progress Note Update
This note serves as an addendum to the H&P by [employer] JACE Courtney REIDURGIS
HPI
29F HX narcotic dependent Chronic pain syndrome , f/u at [facility] , on Immunosurpressed on Remicade ( last dose was 05/08/24 ) s/p root canal # 6 yesterday.
- woke up wit T 99.8, Lt face swelling
- Recent s/p #11 root maura on 04/26 complicated by dental abscess was hospitalized fron 04/28 - 07/02, s/p Augementin completd on 05/06. 2 days later she had Remicadee and root canal on #6.
- She took Tylenol this AM.
VS:Afebrile, HR 125, normotensive 115/84
LE of face
swelling to left lower orbit with erythema
swelling left cheek no erythema
slight swelling to right cheek with no erythema
no intraoral abscesses appreciated no tenderness along right mandible however there is some breakdown of her right posterior molar #3
CT facial bones with IV contrast:
1. Small none of bilateral frontal/periorbital soft tissue swelling
2. Small amount of abnormal air and fluid immediately just adjacent to the right mandible.
Given history of root canal 1 day prior most likely represents sequelae of recent surgery.
Abnormal Lab
05/09/24
WCC 7.7
RBC 4.14 L
Hgb 11.9 L
Hct 35.7 L
Eosinophils % 8.6 H
BUN 20 H
ASSESSMENT & PLAN
Immuno suppressed patient with Crohn dz on Remicade
Recurrent facial cellulitis with Rt mandibular air/fluid due to root canal concern for abscess
S/P root canal at tooth #6 yesterday 05/08/2024
Of note: HX facial cellulitis require admission 04/28 - 05/02/2024 s/p Partial Root canal left upper canine tooth #11due to large abscess root
TX' D with with prior Clindamycin 2.5 days changed to oral Augmentin 04/28/24 - 05/06/24
- s/p Remicade infusion yesterday 05/08/2024 ( Primary GI Dr is not aware she had this with ongoing infections- patient made aware she must contact her GI doctor before having Remicade with any infection)
- NEG MRSA scre as 04/30/24
- s/p oral Augmentin as of 05/06/2024
- cont. Unasyn
- PRN IV Dilaudid, IV Toradol as inpatient
- OMFS consulted
Chronic narcotic dependent pain unspecified to joints toes, knees, wrists, ankles, fingers
- Follows with [facility]
- on gabapentin 3 mg 4 times daily
- [employer] on OxyContin 10 mg at bedtime and 10 mg every 4 hours severe pain
Crohn's disease
- on Remicade- last infusion yesterday 05/08/2024
DVT Px: LMWH
Full code
IP MS
[2024-05-09] MEDS: VANCOCIN 530 MG IV (14:13)
[2024-05-09 16:58] VITALS: BP 115/66; BMI 25.9
[2024-05-09] MEDS: DILAUDID 1 MG IV ×2 (17:40→21:55)
[2024-05-09] MEDS: NEURONTIN 300 MG PO ×2 (17:42→22:30)
[2024-05-09] MEDS: ATARAX 25 MG PO ×2 (17:42→22:30)
[2024-05-09] MEDS: TORADOL 30 MG IV (17:58)
[2024-05-09] MEDS: ROXICODONE 10 MG PO ×2 (19:05→23:20)
--- NOTE | 2024-05-09 19:11 | PTCARENOTE ---
Addendum entered by Karen Borja RN 05/09/24 19:15:
Home meds sent to pharmacy - Darline, Vitamin A and multivitamin.
Original Note:
Pt admitted to 321 from ED. VSS, c/o severe left face pain. Mom and fiancee present for admission, POC explained and verbalized undesrtanding. IV Unasyn admisntered as available - pt seen pressing buttons on IV pump when nurse left room -
instructed not to press anything, if pump alarming to call the nurse.
--- NOTE | 2024-05-09 19:19 | PHA.VAN.IN ---
Assessment
- Assessment
Renal Function: Appears similar to baseline
Concomitant Antimicrobials: UNASYN
- Previous Dosing Experience
Previous Regimen: 1GM IV Q12H - 1 DOSE ONLY
Date of Regimen: 05/01/24
Provided Trough of: UNKNOWN
Provided AUC of: UNKNOWN
Patient's SCR is: Similar to previous dosing experience (05/01/24 SCR = 0.8)
Patient's weight is: Similar to previous dosing experience (05/01/24 WT = 68.2 KG)
AUC Dosing Plan
- Dosing Variables
Dosing Weight (kg): 68.3
Dosing CrCl (ml/min): 90
Vd coefficient (L/kg): 0.7
- Empiric Dosing
Initial / Loading Dose: 1500MG
Maintenance Regimen: 1GM IV Q12H
Estimated AUC (mcg*h/mL): 550
Estimated Peak (mcg*h/mL): 34.1
Estimated Trough (mcg/ml): 14.3
Estimated Half Life (H): 8.8
Pharmacokinetics Vancomycin I
- -
Patient Age: 29
Patient Sex: Female
Vancomycin Day #: 1
Indication: Skin And Soft Tissue (MOUTH INFECTION)
Requesting Provider: JUDITH
Height / Weight:
Height 5 ft 4 in
Actual Weight 68.311 kg
Pertinent Past Medical History: CHROHN'S DISEASE ON REMICAIDE
- Vital Signs / Lab Results
Temp Pulse Resp BP Pulse Ox
98.1 F 74 16 115/66 99
05/09/24 16:58 05/09/24 16:58 05/09/24 16:58 05/09/24 16:58 05/09/24 16:58
Lab Results - Hematology
05/09/24
09:33
WBC 7.7
Lab Results - Chemistry
05/09/24
09:33
BUN 20 H
Creatinine 0.8
Estimated Creat Clear 90
Albumin 4.0
[2024-05-09] MEDS: KLONOPIN 1 MG PO (20:37)
[2024-05-09] MEDS: VITAMIN C 500 MG PO (20:37)
[2024-05-09] MEDS: OXYCONTIN (CONTROLLED RELEASE) 10 MG PO (22:30)
[2024-05-09] MEDS: MELATONIN 10 MG PO (22:30)
[2024-05-09] MEDS: PEPCID 10 MG PO (22:30)
[2024-05-09] MEDS: NON-FORMULARY ITEM 180 MG PO (22:30)
[2024-05-09] MEDS: THERAGRAN PO (22:30)
[2024-05-09 23:38] VITALS: BP 124/74
[2024-05-10] MEDS: DILAUDID 1 MG IV ×5 (02:20→23:19)
[2024-05-10] MEDS: UNASYN IV ×4 (05:18→23:19)
[2024-05-10] MEDS: ROXICODONE 10 MG PO ×4 (05:18→21:04)
[2024-05-10] MEDS: VANCOCIN 200 IV (06:21)
[2024-05-10 06:39] LABS: % Basophils 0.4 % (0-2); % Eosinophils 8.8 % (0-6); % Immature Granulocytes 0.4 % (0-0.5); % Lymphocytes 39.5 % (20.5-51.1); % Neutrophils 42.9 % (42.2-75.2); Absolute Eosinophils 0.7 10^3/uL (0-0.7); Absolute Lymphocytes 3.2 10^3/uL (1.2-3.4); Absolute Monocytes 0.7 10^3/uL (0.1-0.6); Absolute Neutrophils 3.5 10^3/uL (1.4-6.5); Hematocrit 31.1 % (37.0-47.0); Hemoglobin 10.5 g/dL (12.0-16.0); Mean Corp Hgb Conc. 33.8 g/dL (33.0-37.0); Mean Corpuscular Hgb 29.2 pg (27.0-31.0); Mean Corpuscular Volume 86.4 fL (81.0-99.0); Mean Platelet Volume 9.9 fL (7.4-10.4); Nucleated Red Blood Cells % 0 %; Platelet Count 230 10^3/uL (130-400); Red Cell Dist. Width 13.7 % (11.5-14.5); White Blood Cell Count 8.2 10^3/uL (4.8-10.8)
[2024-05-10 07:06] LABS: ALT (SGPT) 20 U/L (0-35); AST (SGOT) 23 U/L (14-36); Albumin 3.2 g/dl (3.5-5.0); Alkaline Phosphatase 59 U/L (38-126); Blood Urea Nitrogen 19 mg/dl (7-17); Calcium 8.7 mg/dl (8.4-10.2); Carbon Dioxide 27 mmol/L (22-30); Chloride 103 mmol/L (98-107); Estimated Creatinine Clearance 90 ml/min; Glucose 93 mg/dl (70-99); Sodium 141 mmol/L (135-145); Total Bilirubin 0.4 mg/dl (0.2-1.3); Total Protein 6.4 g/dl (6.3-8.2); eGFR > 60.00
[2024-05-10 07:35] VITALS: BP 96/55
--- NOTE | 2024-05-10 08:17 | W.PN.HOSP.TC ---
Today's Communication/Plan
-
Pain control
cont abx
ID ENT eval
Assessment / Plan
Assessment / Plan
Physical Exam
General: Conversant; no acute distress
HEENT: NormoCephalic, Anicteric, PERRLA, [place] Conjunctivae, No Ptosis Left facial swelling erythema inferior eye appears improved
Respiratory: Clear; No Wheezes, Rales or Rhonchi
Cardiac: S1/S2 NSR; No Murmur, Rub, Gallop, Peripheral Edema or JVD
GI: Soft, Non Tender, Normal Bowel Sounds and No Hepatosplenomegaly
Musculoskeletal: No Clubbing, No Cyanosis and No Edema
Skin: Warm and Dry; No Rash
Neuro: AO x 3
Psych: Calm
HPI 29F HX narcotic dependent Chronic pain syndrome , f/u at [facility] , on Immunosurpressed on Remicade ( last dose was 05/08/24 ) s/p root canal # 6 day prior, woke up wit T 99.8, Lt face swelling. Recent s/p #11
root maura on 04/26 complicated by dental abscess was hospitalized from 04/28 - 07/02, s/p Augementin completd on 05/06. 2 days later she had Remicadee and root canal on #6.
#Recurrent facial cellulitis with right mandibular air/fluid secondary to root canal concern for abscess
#Patient with root canal yesterday #6 on 05/08/2024 tooth
#History of facial cellulitis 04/28 - 05/02/2024 post Partial Root canal left upper canine tooth #11 due to large abscess root- TX' D with with prior Clindamycin x 2.5 days changed to oral Augmentin APR 28-
-Had Remicade infusion yesterday 05/08/2024 ( her Gi Dr is not aware she had this with ongoing infections-patient made aware she must contact her GI doctor before having Remicade with any infection
-Finished oral Augmentin on 05/06/2024
-received IV Vancomycin, discontinued
-cont empiric unasyn
-IV Dilaudid, IV Toradol, continue oxycodone 10 mg every 6 as needed as patient is on regularly and oxycodone 10 mg at bedtime
-Per Admitting, Consult OMFS-Dr. Shirley Cabrales recommended IV Unasyn or Augmentin, if not intending to have teeth extraction patient may follow-up with her area loss prevention manager [place] endodont[facility] specialist [phone]
-ID ENT eval requested
CT facial bones with IV contrast:
1. Small none of bilateral frontal/periorbital soft tissue swelling
2. Small amount of abnormal air and fluid immediately just adjacent to the right mandible. (the pt has no pain Right lower mandilble and not site of Root canal)
Small abscess formation cannot be excluded
#Chronic pain unspecified to joints toes, knees, wrists, ankles, fingers Narcotic dependent
-Follows with [facility]
-Continue gabapentin 3 mg 4 times daily
-Continue OxyContin 10 mg at bedtime and oxycodone 10 mg every 4 hours severe pain
#Crohn's disease
-Patient on Remicade had last infusion yesterday 05/08/2024
#Celiac disease
-Soft diet/celiac diet
#Hx IBS hx
#Hx anxiety
-Continue with Cymbalta 90 mg daily, clonazepam 1 mg p.o. twice daily
#GERD
-Continue Pepcid increased to 20 mg BID GI ppx while on Toradol prn
#Insomnia
Continue melatonin 10 mg at bedtime
DVT prophylaxis
SCDs
Full code
I spent a total of minutes with the patient or on the floor. More than 50% of this time involved counseling and coordination of care.
Anticipated Discharge: 24 - 48 hours
Subjective/Interval History
-
Date of Service: May 10, 2024
Left facial swelling tenderness improving
Objective Data
-
Labs:
Laboratory Results
05/10/24
06:04
WBC 8.2
Hgb 10.5 L
Hct 31.1 L
Plt Count 230
Sodium 141
Potassium 4.0
Chloride 103
Carbon Dioxide 27
BUN 19 H
Creatinine 0.8
Glucose 93
Calcium 8.7
Total Bilirubin 0.4
AST 23
ALT 20
Alkaline Phosphatase 59
Vital Signs:
Vital Signs
Temp Pulse Resp BP Pulse Ox
97.6 F 95 16 124/74 95
05/09/24 23:38 05/09/24 23:38 05/09/24 23:38 05/09/24 23:38 05/09/24 23:38
--- NOTE | 2024-05-10 08:33 | PHA.VAN.FU ---
Vancomycin Assessment / Plan
- Assessment
Renal Function: Stable
WBC's are: WNL
In the past 24 hrs, patient has been: Afebrile
Concomitant Antimicrobials: ampicillin/sulbactam
- Dosing Plan
Continue: Vanc 1000mg Q12H
- Monitoring Plan
No level(s) ordered at this time: consider levels in next few days
- Follow Up
Pharmacy will continue to follow.
Vancomycin Follow UP
- -
Patient Age: 29
Patient Sex: Female
Vancomycin Day #: 2
Indication: Skin And Soft Tissue
Requesting Provider: Nikita Loredo
Pertinent Antimicrobial Allergies:
no pertinent antibiotic allergies
Height / Weight:
Height 5 ft 4 in
Actual Weight 68.311 kg
Pertinent Past Medical History: Crohn's disease (infliximab)
- Vital Signs / Lab Results
Temp Pulse Resp BP Pulse Ox
97.6 F 95 16 124/74 95
05/09/24 23:38 05/09/24 23:38 05/09/24 23:38 05/09/24 23:38 05/09/24 23:38
Lab Results - Hematology
05/09/24 05/10/24
09:33 06:04
WBC 7.7 8.2
Lab Results - Chemistry
05/09/24 05/10/24
09:33 06:04
BUN 20 H 19 H
Creatinine 0.8 0.8
Estimated Creat Clear 90 90
Albumin 4.0 3.2 L
[2024-05-10] MEDS: CYMBALTA DELAYED RELEASE 60 MG PO (08:51)
[2024-05-10] MEDS: VITAMIN C 500 MG PO ×2 (08:51→21:02)
[2024-05-10] MEDS: ATARAX 25 MG PO ×4 (08:51→21:45)
[2024-05-10] MEDS: NEURONTIN 300 MG PO ×4 (08:51→21:45)
[2024-05-10] MEDS: CYMBALTA DELAYED RELEASE 30 MG PO (08:51)
[2024-05-10] MEDS: TORADOL 30 MG IV (09:02)
[2024-05-10] MEDS: PEPCID 20 MG PO ×2 (11:20→21:02)
[2024-05-10] MEDS: VISBIOME 2 CAP PO (11:20)
--- NOTE | 2024-05-10 11:47 | CON.ID ---
Consultation
-
Date/Time Consultation Requested: 05/10/2024 1016
Date/Time Consultation Performed: 05/10/2024 1147
Requesting Provider: Dr. Payton
Performing Provider: Dr. Weems
Reason for Consultation: Facial cellulitis; odontologic infection
Chief Complaint / Past History
History of Present Illness
Saumya Olivia is a 29-year-old female being evaluated at the request of Dr. Payton in regards to left facial cellulitis. History is obtained from chart review, along with patient interview, and old records contained in the hospital EMR system.
The patient has previously been evaluated by ID on 04/29/2024, when she presented to the hospital for left facial swelling, at that time, she noted that on April 24, she saw her dentist because the frontal veneer came off. She had x-ray and was
told no infection. Dentist prescribed amoxicillin 500 mg every 6 hours. On Wednesday evening, she had severe tooth pain radiating up the side of her left nose. The next morning she noted swelling on the left side of her face and saw her tailor men's ready to wear
who repeated an x-ray which showed large abscess. She underwent partial root canal with antibiotic instillation. She was instructed to continue with amoxicillin. She was prescribed Tylenol 3. That evening she had severe pain at the root canal
site as well as worsening facial swelling. She presented to the ER April [address] of the facial bone showed left facial swelling, no abscess. She received Toradol. The amoxicillin was replaced with clindamycin 300 mg every 6 hours. She was
discharged to home. However she continued to have severe pain and swelling of the left face and came to the emergency room. Here she was placed on empiric antibiotics, with improvement over the next several days. She ultimately was discharged to
home on a course of Augmentin on 05/02/2024. She notes that she continued with Augmentin through 4 days ago, but did receive additional doses through her PCP.
3 days ago she noted some small amount of erythema on the medial aspect of her left lower eyelid area. 2 days ago she received her usual Remicade dose, although it is noted that this was a week late secondary to her prior infection. Later that day
she was seen by her dentist and received a root canal. She notes that this procedure was not felt to be associated with any infection, though, unlike her prior 1. She did have some soreness in the area thereafter, but later that night she noted
some left medial eye swelling. Because of ongoing swelling, she presented back to the emergency room for further evaluation. She was placed on empiric antibiotics (Unasyn/vancomycin). Infectious Diseases asked to comment upon further
antimicrobial therapy.
At this time she notes that the area is feeling somewhat better. She admits to temperatures to 99.8 as an outpatient, and also some chills. She reports intermittent double vision which is mild, and only occasional. She also feels like she has
some eye 'pressure'.
Past History
Additional Past Medical History:
Crohn's disease on Remicade
Celiac disease
Irritable bowel syndrome
anxiety
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
Allergy History:
egg Allergy (Verified 05/09/24 08:01)
Anaphylaxis
gluten Allergy (Verified 05/09/24 08:01)
stomach pain
prochlorperazine Allergy (Verified 05/09/24 17:00)
Akathesia
shrimp Allergy (Verified 05/09/24 08:01)
Unknown
tree nut Allergy (Verified 05/09/24 08:01)
Hives
Medications Reviewed: Yes
Current Antibiotics:
Unasyn
Vancomycin
Social History
Tobacco: Non-Smoker
Alcohol: None
Drug: None
Personal: Single
Living: With Family
Employment: Employed
Family History
Family History: Not Pertinent
Review of Systems
Vital Signs
Temp Pulse Resp BP Pulse Ox
98 F 76 20 96/55 99
05/10/24 07:35 05/10/24 07:35 05/10/24 07:35 05/10/24 07:35 05/10/24 07:35
Physical Exam
Physical Exam
Constitutional: No Acute Distress, Comfortable and Non-toxic
Eyes: No Conjunctival Hemorrhage and Sclera Anicteric
Pharynx: Benign and Other (No trismus.)
Oral: Negative No Thrush or No Ulcers
Lymph Nodes: Negative Lymphadenopathy
Cardiovascular: Regular Rate and S1/S2; Negative S3/S4
Pulmonary: Clear and Non Labored
Gastrointestinal: Soft, Non Tender and Non Distended
Neurological: Awake and Alert
Psychological: Calm
Lab / Diagnostic Study Results
05/10/24 06:04
05/10/24 06:04
Abs Immat Gran (auto) 0.0 10^3/uL (0-0.05) 05/10/24 06:04
Absolute Neuts (auto) 3.5 10^3/uL (1.4-6.5) 05/10/24 06:04
Absolute Lymphs (auto) 3.2 10^3/uL (1.2-3.4) 05/10/24 06:04
Absolute Monos (auto) 0.7 10^3/uL (0.1-0.6) H 05/10/24 06:04
Absolute Basos (auto) 0.0 10^3/uL (0-0.2) 05/10/24 06:04
Immature Gran % 0.4 % (0-0.5) 05/10/24 06:04
Neutrophils % 42.9 % (42.2-75.2) 05/10/24 06:04
Lymphocytes % 39.5 % (20.5-51.1) 05/10/24 06:04
Monocytes % 8.0 % (1.7-9.3) 05/10/24 06:04
Eosinophils % 8.8 % (0-6) H 05/10/24 06:04
Basophils % 0.4 % (0-2) 05/10/24 06:04
Microbiology Results
Imaging:
05/09/2024 CT facial bones with IV contrast: There is a small amount of bilateral frontal/periorbital soft tissue swelling. No acute abnormalities identified within either orbit. There is a small amount of abnormal air and fluid immediately
adjacent to the right mandible. Given history of recent root canal, this most likely represents sequela of recent surgery. A small abscess cannot be excluded. Please see full dictation for additional detail. Film personally viewed.
Assessment / Plan
Mild left facial swelling
- Unclear as to whether secondary to recent root canal surgery or to infection.
�No overlying significant erythema, though.
Reported chills
Crohn's disease on Remicade
Celiac disease
Irritable bowel syndrome
anxiety
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
Recommendations:
Continue with Unasyn for today and follow clinically.
May be able to transition to Augmentin in the next 24 hours.
Discontinue further vancomycin.
Monitor white count temperature curve.
Advised patient that she should be in contact with her dentist and tailor men's ready to wear, as she will need close follow-up following discharge.
[2024-05-10] MEDS: KLONOPIN 1 MG PO ×2 (12:32→21:02)
--- NOTE | 2024-05-10 13:27 | W.PN.ENT ---
Today's Communication
-
seen at bedside
Impression / Plan
-
Unasyn should be good choice, could also consider clindamycin
consider oral surgery consultation
Subjective Data
-
asked to see patient for recurrent facial swelling and nasal obstruction
Objective Data
-
Vital Signs
Temp Pulse Resp BP Pulse Ox
98 F 76 20 96/55 99
05/10/24 07:35 05/10/24 07:35 05/10/24 07:35 05/10/24 07:35 05/10/24 07:35
Intake & Output
05/09/24 05/10/24 05/11/24
06:59 06:59 06:59
Other:
Number of approximated LARGE 1
amounts of urine
Lab Results
05/10/24 06:04
05/10/24 06:04
Calcium 8.7 mg/dl (8.4-10.2) 05/10/24 06:04
Total Bilirubin 0.4 mg/dl (0.2-1.3) 05/10/24 06:04
AST 23 U/L (14-36) 05/10/24 06:04
ALT 20 U/L (0-35) 05/10/24 06:04
Alkaline Phosphatase 59 U/L (38-126) 05/10/24 06:04
Physical Exam
-
right facial swelling consistent with canine space/dental infection
no sinusitis seen, swelling in left lateral nasal soft tissue secondary to above infection
Chest: Clear
Respiratory: Clear
Data Reviewed
-
Radiology Results: Report Reviewed
[2024-05-10 15:45] VITALS: BP 103/68
[2024-05-10] MEDS: TORADOL 15 MG IV ×2 (16:31→23:19)
--- NOTE | 2024-05-10 20:17 | CON.MD ---
Consultation - Medical
-
Chief complaint: Recurrent facial cellulitis, nasal obstruction
History of present illness: This 29-year-old woman with a history of Crohn's disease presents with recent recurrent facial swelling. She was admitted to the hospital a week or 2 ago with left facial swelling that resolved with antibiotics. She
noticed recurrence after completing her oral antibiotics at home. She has had some problems with the teeth and had a recent root canal of the left maxillary canine tooth. She now has swelling in the medial cheek area with some tenderness as well.
She is currently being treated with Unasyn after starting with vancomycin during this admission. The patient has a history of Crohn's disease. She also has been experiencing problems with nasal obstruction on the left side. She does not have
significant bleeding or purulent drainage from the nose.
Past medical history:
Allergies: The patient is allergic to prochlorperazine which causes akathisia, eggs, gluten and tree nuts
Home medications:
Acetaminophen 1000 mg p.o. every 6 hours as needed
amoxicillin/clavulanate 1 tablet p.o. every 12 hours
Ascorbic acid 500 mg p.o. twice daily
Clonazepam 1 mg p.o. twice daily
Duloxetine 30 mg p.o. daily
Duloxetine 60 mg p.o. daily
Famotidine 10 mg p.o. nightly
Fexofenadine 360 mg p.o. nightly
Gabapentin 300 mg p.o. 4 times daily
Hydromorphone 4 mg p.o. every 4 hours as needed pain
Hydroxyzine 25 mg p.o. 4 times daily
Remicade 7.5 mg IV every 4 hours as needed
Magic mouthwash 1 dose p.o. every 3 hours as needed
Melatonin 10 mg p.o. nightly
Oxycodone 10 mg p.o. every 4 hours
OxyContin 10 mg p.o. nightly
Theragen 1 tablet p.o. nightly
Vitamin A 3000 mcg p.o. nightly
Medical problems: Celiac disease, anxiety, immunocompromise, chronic pain, chronic narcotic dependence, Crohn disease, cellulitis of face
Hospitalizations: The patient has been hospitalized a couple of times for recurrent cellulitis of the face
Family history: Asked and is noncontributory for this problem
Review of systems: Left facial tenderness and swelling, left nasal obstruction, mild, negative for chest pain
Physical examination:
Head: Atraumatic and normocephalic, left medial cheek swelling and redness without fluctuance
Eyes: Extraocular movements are intact, minimal left lower eyelid swelling and redness
Ears: Normal to examination
Nose: Externally the patient was noted to have swelling of the nose, internal examination was not adequate with a speculum
Cranial nerves: II through XII are intact
Salivary glands: Normal to examination
Thyroid gland: Normal to examination
Oral cavity: Some swelling in the left maxillary canine area
Procedure: Nasal endoscopy
The nose was examined internally with a nasal endoscope and the patient was noted to have some swelling but no evidence of infection. No polyps are seen. Is no purulent drainage. Nasopharynx is clear.
Impression/plan: The patient appears to have a canine space infection because of problems related to her canine tooth in the left maxilla. She has some tenderness but I do not think there is any abscess in the canine space and there is no
fluctuance palpable. There is no evidence of sinus infection in this patient. The nasal obstruction she has on the left side is very mild and related to the swelling of the cheek. Unasyn is a pretty good choice of antibiotics and she also might
do well with clindamycin as this appears to be of dental origin. Consultation with oral surgery may be helpful if problems persist.
[2024-05-10] MEDS: THERAGRAN PO (20:54)
[2024-05-10] MEDS: NON-FORMULARY ITEM 180 MG PO (21:03)
[2024-05-10] MEDS: OXYCONTIN (CONTROLLED RELEASE) 10 MG PO (21:45)
[2024-05-10] MEDS: MELATONIN 10 MG PO (21:45)
[2024-05-10 22:30] VITALS: BP 103/63
[2024-05-11] MEDS: UNASYN IV ×4 (05:21→23:41)
[2024-05-11] MEDS: DILAUDID 1 MG IV ×4 (05:21→20:38)
[2024-05-11] MEDS: TORADOL 15 MG IV ×2 (06:13→12:38)
[2024-05-11 06:26] LABS: % Basophils 0.3 % (0-2); % Eosinophils 10.6 % (0-6); % Immature Granulocytes 0.3 % (0-0.5); % Lymphocytes 32.2 % (20.5-51.1); % Monocytes 7.5 % (1.7-9.3); % Neutrophils 49.1 % (42.2-75.2); Absolute Lymphocytes 3.1 10^3/uL (1.2-3.4); Absolute Monocytes 0.7 10^3/uL (0.1-0.6); Absolute Neutrophils 4.7 10^3/uL (1.4-6.5); Hemoglobin 10.5 g/dL (12.0-16.0); Mean Corp Hgb Conc. 33.9 g/dL (33.0-37.0); Mean Corpuscular Hgb 29.2 pg (27.0-31.0); Mean Corpuscular Volume 86.4 fL (81.0-99.0); Mean Platelet Volume 9.8 fL (7.4-10.4); Nucleated Red Blood Cells % 0 %; Platelet Count 230 10^3/uL (130-400); Red Blood Cell Count 3.59 10^6/uL (4.20-5.40); Red Cell Dist. Width 13.6 % (11.5-14.5); White Blood Cell Count 9.5 10^3/uL (4.8-10.8)
[2024-05-11 07:23] LABS: ALT (SGPT) 18 U/L (0-35); AST (SGOT) 24 U/L (14-36); Albumin 3.2 g/dl (3.5-5.0); Alkaline Phosphatase 66 U/L (38-126); Blood Urea Nitrogen 21 mg/dl (7-17); Calcium 8.4 mg/dl (8.4-10.2); Carbon Dioxide 27 mmol/L (22-30); Chloride 104 mmol/L (98-107); Estimated Creatinine Clearance 103 ml/min; Glucose 100 mg/dl (70-99); Potassium 3.9 mmol/L (3.5-5.1); Sodium 140 mmol/L (135-145); Total Bilirubin 0.4 mg/dl (0.2-1.3); Total Protein 6.3 g/dl (6.3-8.2); eGFR > 60.00
[2024-05-11 07:35] VITALS: BP 98/66
--- NOTE | 2024-05-11 07:38 | W.PN.HOSP.TC ---
Today's Communication/Plan
-
cont abx as per ID
pain control, home oral dilaudid prn severe pain resumed, IV dilaudid remains available for severe breakthrough pain
hold Toradol d/t swelling and eosinophilia
Assessment / Plan
Assessment / Plan
Physical Exam
General: Conversant; no acute distress
HEENT: NormoCephalic, Anicteric, PERRLA, [place] Conjunctivae, No Ptosis Left facial swelling erythema inferior eye appears improved/resolving
Respiratory: Clear; No Wheezes, Rales or Rhonchi
Cardiac: S1/S2 NSR; No Murmur, Rub, Gallop, Peripheral Edema or JVD
GI: Soft, Non Tender, Normal Bowel Sounds and No Hepatosplenomegaly
Musculoskeletal: No Clubbing, No Cyanosis and No Edema
Skin: Warm and Dry; No Rash
Neuro: AO x 3
Psych: Calm
HPI 29F HX narcotic dependent Chronic pain syndrome , f/u at [facility] , on Immunosurpressed on Remicade ( last dose was 05/08/24 ) s/p root canal # 6 day prior, woke up wit T 99.8, Lt face swelling. Recent s/p #11
root maura on 04/26 complicated by dental abscess was hospitalized from 04/28 - 07/02, s/p Augementin completd on 05/06. 2 days later she had Remicadee and root canal on #6.
#Recurrent facial cellulitis with right mandibular air/fluid secondary to root canal concern for abscess
#Patient with root canal yesterday #6 on 05/08/2024 tooth
#History of facial cellulitis 04/28 - 05/02/2024 post Partial Root canal left upper canine tooth #11 due to large abscess root- TX' D with with prior Clindamycin x 2.5 days changed to oral Augmentin APR 28-
-Had Remicade infusion 05/08/2024 prior to dental procedure
-Finished oral Augmentin on 05/06/2024
-received IV Vancomycin, discontinued
-cont empiric unasyn
-home oral dilaudid resumed for severe pain, IV Dilaudid remains available for breakthrough pain, IV Toradol (placed on hold d/t swelling and eosinophilia), continue oxycodone 10 mg every 6 as needed as patient is on regularly and oxycodone 10 mg at
bedtime
-Per Admitting, Consult OMFS-Dr. Shirley Cabrales recommended IV Unasyn or Augmentin, oupt follow up with [facility]
-ID ENT eval appreciated
CT facial bones with IV contrast:
1. Small none of bilateral frontal/periorbital soft tissue swelling
2. Small amount of abnormal air and fluid immediately just adjacent to the right mandible. (the pt has no pain Right lower mandilble and not site of Root canal)
Small abscess formation cannot be excluded
#Chronic pain unspecified to joints toes, knees, wrists, ankles, fingers Narcotic dependent
-Follows with [facility] pain management
-Continue gabapentin 3 mg 4 times daily
-Continue OxyContin 10 mg at bedtime and oxycodone 10 mg every 4 hours severe pain
#Crohn's disease
-Patient on Remicade had last infusion yesterday 05/08/2024
#Celiac disease
-Soft diet/celiac diet
#Hx IBS hx
#Hx anxiety
-Continue with Cymbalta 90 mg daily, clonazepam 1 mg p.o. twice daily
#GERD
-Continue Pepcid increased to 20 mg BID GI ppx while on Toradol prn
#Insomnia
Continue melatonin 10 mg at bedtime
#Constipation likely opiate induced
scheduled colace
prn miralax sennokot
DVT prophylaxis
SCDs switched to Lovenox per patient request
Full code
discussed with patient and patient's father Alirio
I spent a total of 50 minutes with the patient or on the floor. More than 50% of this time involved counseling and coordination of care.
Anticipated Discharge: 24 - 48 hours
Subjective/Interval History
-
Date of Service: May 11, 2024
No acute distress sitting up comfortably in bed. Reports swelling hands, ring more difficult to remove, likely d/t NSAID use. Constipation noted, laxatives started. Erythema swelling left side face appears improved, tenderness persists.
Objective Data
-
Labs:
Laboratory Results
05/11/24
06:00
WBC 9.5
Hgb 10.5 L
Hct 31.0 L
Plt Count 230
Sodium 140
Potassium 3.9
Chloride 104
Carbon Dioxide 27
BUN 21 H
Creatinine 0.7
Glucose 100 H
Calcium 8.4
Total Bilirubin 0.4
AST 24
ALT 18
Alkaline Phosphatase 66
Vital Signs:
Vital Signs
Temp Pulse Resp BP Pulse Ox
98.1 F 78 18 103/63 96
05/10/24 22:30 05/10/24 22:30 05/10/24 22:30 05/10/24 22:30 05/10/24 22:30
I&O
05/10/24 05/11/24 05/12/24
06:59 06:59 06:59
Intake Total 740 / 740
Output Total 620 / 620
Balance 120 / 120
[2024-05-11] MEDS: VITAMIN C 500 MG PO ×2 (07:46→20:31)
[2024-05-11] MEDS: ROXICODONE 10 MG PO ×4 (07:46→23:47)
[2024-05-11] MEDS: CYMBALTA DELAYED RELEASE 60 MG PO (07:46)
[2024-05-11] MEDS: CYMBALTA DELAYED RELEASE 30 MG PO (07:46)
[2024-05-11] MEDS: ATARAX 25 MG PO ×4 (07:46→21:54)
[2024-05-11] MEDS: NEURONTIN 300 MG PO ×4 (07:46→21:54)
[2024-05-11] MEDS: PEPCID 20 MG PO ×2 (07:47→20:31)
[2024-05-11] MEDS: VISBIOME 2 CAP PO (07:47)
[2024-05-11] MEDS: KLONOPIN 1 MG PO ×2 (11:42→20:37)
--- NOTE | 2024-05-11 14:10 | W.PN.ID1 ---
Date of Service
Date of Service: May 11, 2024
Today's Communication
Continue antibiotics. See below�
Assessment / Plan
Mild left facial swelling
- Unclear as to whether secondary to recent root canal surgery or to infection.
� No overlying significant erythema, though.
Reported chills
Crohn's disease on Remicade
Celiac disease
Irritable bowel syndrome
anxiety
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
Recommendations:
Continue with Unasyn for today and follow clinically.
Will transition to oral Augmentin 875 mg twice daily for an additional 7 days at discharge.
Advised patient that she should be in contact with her dentist and analytical strategist, as she will need close follow-up following discharge.
Chief Complaint
-: Cellulitis (facial) and Other
Subjective / Review of Systems
Patient seen and examined. Reports some improvement in overall discomfort from initial presentation, but only mild improvement (if any) from yesterday.
Review of Systems: No Fever and No Chills
Vital Signs / Physical Exam
Vital Signs
Vital Signs
Temp Pulse Resp BP Pulse Ox
98.4 F 70 16 98/66 98
05/11/24 07:35 05/11/24 07:35 05/11/24 07:35 05/11/24 07:35 05/11/24 07:35
Physical Exam
Constitutional: No Acute Distress, Well Developed, Comfortable and Non-toxic
Head: Normocephalic
Eyes: No Conjunctival Hemorrhage and Sclera Anicteric
Oropharyngeal: Other (Mild/decreased left facial swelling today. No significant erythema.); Negative Thrush
Cardiovascular: Regular Rate and S1/S2; Negative S3/S4
Pulmonary: Clear; Negative Wheezes or Rales
Gastrointestinal: Soft and Non Tender
Extremities: Negative Edema or Cyanosis
Neurological: Awake and Alert
Psychological: Calm
Objective Data
Lab Data
Lab Results
05/11/24 06:00
05/11/24 06:00
Estimated Creat Clear 103 ml/min 05/11/24 06:00
Total Bilirubin 0.4 mg/dl (0.2-1.3) 05/11/24 06:00
AST 24 U/L (14-36) 05/11/24 06:00
ALT 18 U/L (0-35) 05/11/24 06:00
Alkaline Phosphatase 66 U/L (38-126) 05/11/24 06:00
Most recent labs reviewed.
Imaging:
05/09/2024 CT facial bones with IV contrast: There is a small amount of bilateral frontal/periorbital soft tissue swelling. No acute abnormalities identified within either orbit. There is a small amount of abnormal air and fluid immediately
adjacent to the right mandible. Given history of recent root canal, this most likely represents sequela of recent surgery. A small abscess cannot be excluded. Please see full dictation for additional detail. Film personally viewed.
Care Review
Plan reviewed with: Physician (Hospitalist)
[2024-05-11 15:00] VITALS: BP 114/66
[2024-05-11] MEDS: COLACE 100 MG PO ×2 (15:16→20:31)
--- NOTE | 2024-05-11 17:02 | CM ---
Reviewed chart, met with patient to obtain information for assessment. Patient stated that she lives with her parents in a two story home with one step to enter. She described herself as independent with all of her ADLs, personal care, dressing and
bathing. 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 She does not drive however her family is always available to take her to her appointments and take her shopping.
Patient denied any DME in her home.
She has not had VN services.
Patient has not been to a SNF.
She has a prescription plan and uses, [facility] in [place] for all of her medication.
Her PCP is, Nadege Dyson.
Plan: Case management will continue to follow and assist with discharge planning. Patient will return home when stable.
[2024-05-11] MEDS: LOVENOX 40 MG SC (17:32)
[2024-05-11] MEDS: DILAUDID 4 MG PO (18:32)
[2024-05-11] MEDS: THERAGRAN PO (20:31)
[2024-05-11] MEDS: NON-FORMULARY ITEM 180 MG PO (20:32)
[2024-05-11] MEDS: MELATONIN 10 MG PO (21:54)
[2024-05-11] MEDS: OXYCONTIN (CONTROLLED RELEASE) 10 MG PO (21:54)
[2024-05-11 23:12] VITALS: BP 103/70
[2024-05-12] MEDS: DILAUDID 4 MG PO ×2 (03:37→14:08)
[2024-05-12] MEDS: UNASYN IV (05:07)
[2024-05-12] MEDS: DILAUDID 1 MG IV ×4 (05:08→20:40)
[2024-05-12 06:27] LABS: % Basophils 0.3 % (0-2); % Eosinophils 11.5 % (0-6); % Immature Granulocytes 0.3 % (0-0.5); % Lymphocytes 42.3 % (20.5-51.1); % Monocytes 9.3 % (1.7-9.3); % Neutrophils 36.3 % (42.2-75.2); Absolute Eosinophils 0.8 10^3/uL (0-0.7); Absolute Lymphocytes 3.1 10^3/uL (1.2-3.4); Absolute Monocytes 0.7 10^3/uL (0.1-0.6); Absolute Neutrophils 2.7 10^3/uL (1.4-6.5); Hematocrit 32.5 % (37.0-47.0); Mean Corp Hgb Conc. 33.8 g/dL (33.0-37.0); Mean Corpuscular Hgb 29.5 pg (27.0-31.0); Mean Corpuscular Volume 87.1 fL (81.0-99.0); Mean Platelet Volume 9.9 fL (7.4-10.4); Nucleated Red Blood Cells % 0 %; Platelet Count 251 10^3/uL (130-400); Red Blood Cell Count 3.73 10^6/uL (4.20-5.40); Red Cell Dist. Width 13.7 % (11.5-14.5); White Blood Cell Count 7.3 10^3/uL (4.8-10.8)
[2024-05-12 06:49] LABS: ALT (SGPT) 18 U/L (0-35); AST (SGOT) 25 U/L (14-36); Albumin 3.4 g/dl (3.5-5.0); Alkaline Phosphatase 60 U/L (38-126); Blood Urea Nitrogen 21 mg/dl (7-17); Calcium 8.6 mg/dl (8.4-10.2); Carbon Dioxide 29 mmol/L (22-30); Chloride 102 mmol/L (98-107); Estimated Creatinine Clearance 90 ml/min; Glucose 86 mg/dl (70-99); Potassium 4.2 mmol/L (3.5-5.1); Sodium 141 mmol/L (135-145); Total Bilirubin 0.4 mg/dl (0.2-1.3); Total Protein 6.6 g/dl (6.3-8.2); eGFR > 60.00
[2024-05-12 07:35] VITALS: BP 91/59
--- NOTE | 2024-05-12 08:34 | W.PN.HOSP.TC ---
Today's Communication/Plan
-
IV unasyn converted to Augmentin, monitor for tolerability
pain medication adjusted to Percocet 2 tabs QID, cont home Oxycontin 10 mg HS, Q4HPRN Oral Dilaudid 2mg moderate pain, 4 mg severe pain, IV Dilaudid 1mg Q3HPRN severe breakthrough pain
Assessment / Plan
Assessment / Plan
Physical Exam
General: Conversant; no acute distress
HEENT: NormoCephalic, Anicteric, PERRLA, [place] Conjunctivae, No Ptosis Left facial swelling erythema inferior eye appears improved/resolving from initial presentation
Respiratory: Clear; No Wheezes, Rales or Rhonchi
Cardiac: S1/S2 NSR; No Murmur, Rub, Gallop, Peripheral Edema or JVD
GI: Soft, Non Tender, Normal Bowel Sounds and No Hepatosplenomegaly
Musculoskeletal: No Clubbing, No Cyanosis and No Edema
Skin: Warm and Dry; No Rash
Neuro: AO x 3
Psych: Calm
HPI 29F HX narcotic dependent Chronic pain syndrome , f/u at [facility] , on Immunosurpressed on Remicade ( last dose was 05/08/24 ) s/p root canal # 6 day prior, woke up wit T 99.8, Lt face swelling. Recent s/p #11
root maura on 04/26 complicated by dental abscess was hospitalized from 04/28 - 07/02, s/p Augementin completd on 05/06. 2 days later she had Remicadee and root canal on #6.
#Recurrent facial cellulitis with right mandibular air/fluid secondary to root canal concern for abscess
#Patient with root canal yesterday #6 on 05/08/2024 tooth
#History of facial cellulitis 04/28 - 05/02/2024 post Partial Root canal left upper canine tooth #11 due to large abscess root- TX' D with with prior Clindamycin x 2.5 days changed to oral Augmentin APR 28-
-Had Remicade infusion 05/08/2024 prior to dental procedure
-Finished oral Augmentin on 05/06/2024
-received IV Vancomycin, discontinued
-Per Admitting, Consult OMFS recommended oupt follow up
-ID ENT eval appreciated
-Unasyn converted to Augmentin planned for 7 days as per ID
-prn IV Toradol discontinued d/t swelling and eosinophilia
-pain medication adjusted to Percocet 2 tabs QID, cont home Oxycontin 10 mg HS, Q4HPRN Oral Dilaudid 2mg moderate pain, 4 mg severe pain, IV Dilaudid 1mg Q3HPRN severe breakthrough pain
CT facial bones with IV contrast:
1. Small amount of bilateral frontal/periorbital soft tissue swelling. No acute abnormalities identified within either orbit.
2. Small amount of abnormal air and fluid immediately adjacent to the right mandible as above. Given the history of root canal one day prior, most likely represents sequela of the recent surgery. Small abscess formation cannot be excluded. (the pt
has no pain Right lower Mandible, unlikely abscess given overall clinical presentation)
#Chronic pain unspecified to joints toes, knees, wrists, ankles, fingers Narcotic dependent
-Follows with [facility] pain management Dr Gregg Santo
-Continue gabapentin 300 mg 4 times daily
-Pain medications adjusted as above
#Crohn's disease
-Patient on Remicade had last infusion yesterday 05/08/2024
#Celiac disease
-Soft diet/celiac diet
#Hx IBS hx
#Hx anxiety
-Continue with Cymbalta 90 mg daily, clonazepam 1 mg p.o. twice daily
#GERD
-Continue Pepcid increased to 20 mg BID GI ppx while on Toradol prn, reduced to 20 mg HS with discontinuation Toradol
#Insomnia
Continue melatonin 10 mg at bedtime
#Constipation likely opiate induced
scheduled colace
prn miralax sennokot
DVT prophylaxis
SCDs switched to Lovenox per patient request
Full code
I spent a total of 50 minutes with the patient or on the floor. More than 50% of this time involved counseling and coordination of care.
Anticipated Discharge: 24 - 48 hours
Subjective/Interval History
-
Date of Service: May 12, 2024
Pain persists requiring severe breakthrough IV pain med this morning. Constipation improved following Colace.
Objective Data
-
Labs:
Laboratory Results
05/12/24
05:34
WBC 7.3
Hgb 11.0 L
Hct 32.5 L
Plt Count 251
Sodium 141
Potassium 4.2
Chloride 102
Carbon Dioxide 29
BUN 21 H
Creatinine 0.8
Glucose 86
Calcium 8.6
Total Bilirubin 0.4
AST 25
ALT 18
Alkaline Phosphatase 60
Vital Signs:
Vital Signs
Temp Pulse Resp BP Pulse Ox
97.9 F 72 16 91/59 98
05/12/24 07:35 05/12/24 07:35 05/12/24 07:35 05/12/24 07:35 05/12/24 07:35
I&O
05/11/24 05/12/24 05/13/24
06:59 06:59 06:59
Intake Total 740 / 740 1560 / 1560
Output Total 620 / 620 1050 / 1050
Balance 120 / 120 510 / 510
[2024-05-12] MEDS: COLACE 100 MG PO ×2 (09:49→20:40)
[2024-05-12] MEDS: CYMBALTA DELAYED RELEASE 60 MG PO (09:49)
[2024-05-12] MEDS: CYMBALTA DELAYED RELEASE 30 MG PO (09:49)
[2024-05-12] MEDS: NEURONTIN 300 MG PO ×4 (09:50→22:36)
[2024-05-12] MEDS: VISBIOME 2 CAP PO (09:50)
[2024-05-12] MEDS: VITAMIN C 500 MG PO ×2 (09:50→20:40)
[2024-05-12] MEDS: ATARAX 25 MG PO ×4 (09:50→22:36)
[2024-05-12] MEDS: PEPCID 20 MG PO ×2 (09:50→22:35)
[2024-05-12] MEDS: AUGMENTIN 875 MG/125 MG 1 TABLET PO ×2 (11:30→20:40)
[2024-05-12] MEDS: KLONOPIN 1 MG PO ×2 (11:30→22:38)
[2024-05-12] MEDS: PERCOCET 5/325 2 TABLET PO ×3 (11:33→22:36)
--- NOTE | 2024-05-12 13:23 | W.PN.ID1 ---
Date of Service
Date of Service: May 12, 2024
Today's Communication
Continue antibiotics.
Assessment / Plan
Mild left facial swelling
- Unclear as to whether secondary to recent root canal surgery or to infection.
� No overlying significant erythema
Reported chills
Crohn's disease on Remicade
Celiac disease
Irritable bowel syndrome
anxiety
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
Recommendations:
Pt transitioned to oral Augmentin 875 mg twice daily. Continue for an additional 7 days.
Patient reports that she has been in contact with her senior web applications developer and dentist regarding follow-up following discharge.
Chief Complaint
-: Cellulitis (facial) and Other
Subjective / Review of Systems
Patient seen and examined. Reports ongoing, but diminished left nasal area discomfort.
Vital Signs / Physical Exam
Vital Signs
Vital Signs
Temp Pulse Resp BP Pulse Ox
97.9 F 72 16 91/59 98
05/12/24 07:35 05/12/24 07:35 05/12/24 07:35 05/12/24 07:35 05/12/24 07:35
Physical Exam
Constitutional: No Acute Distress, Well Developed, Comfortable and Non-toxic
Head: Normocephalic
Eyes: No Conjunctival Hemorrhage and Sclera Anicteric
Oropharyngeal: Other (Mild/decreased left facial swelling today. No significant erythema.); Negative Thrush
Cardiovascular: Regular Rate and S1/S2; Negative S3/S4
Pulmonary: Clear; Negative Wheezes or Rales
Gastrointestinal: Soft and Non Tender
Extremities: Negative Edema or Cyanosis
Neurological: Awake and Alert
Psychological: Calm
Objective Data
Lab Data
Lab Results
05/12/24 05:34
05/12/24 05:34
Estimated Creat Clear 90 ml/min 05/12/24 05:34
Total Bilirubin 0.4 mg/dl (0.2-1.3) 05/12/24 05:34
AST 25 U/L (14-36) 05/12/24 05:34
ALT 18 U/L (0-35) 05/12/24 05:34
Alkaline Phosphatase 60 U/L (38-126) 05/12/24 05:34
Most recent labs reviewed.
Imaging:
05/09/2024 CT facial bones with IV contrast: There is a small amount of bilateral frontal/periorbital soft tissue swelling. No acute abnormalities identified within either orbit. There is a small amount of abnormal air and fluid immediately
adjacent to the right mandible. Given history of recent root canal, this most likely represents sequela of recent surgery. A small abscess cannot be excluded. Please see full dictation for additional detail. Film personally viewed.
Care Review
Plan reviewed with: Physician (Hospitalist)
[2024-05-12 15:24] VITALS: BP 105/69
[2024-05-12] MEDS: LOVENOX 40 MG SC (18:15)
[2024-05-12] MEDS: THERAGRAN 1 TABLET PO (20:40)
[2024-05-12] MEDS: FLUSH (NSS) 2 FLUSH IV (20:42)
[2024-05-12] MEDS: NON-FORMULARY ITEM 180 MG PO (22:35)
[2024-05-12] MEDS: OXYCONTIN (CONTROLLED RELEASE) 10 MG PO (22:35)
[2024-05-12] MEDS: MELATONIN 10 MG PO (22:36)
[2024-05-12 23:00] VITALS: BP 110/72
[2024-05-13] MEDS: DILAUDID 4 MG PO ×2 (02:59→08:26)
[2024-05-13] MEDS: FLUSH (NSS) 1 FLUSH IV (04:46)
[2024-05-13] MEDS: DILAUDID 1 MG IV ×5 (04:46→23:34)
[2024-05-13 06:59] LABS: Hematocrit 33.5 % (37.0-47.0); Hemoglobin 11.3 g/dL (12.0-16.0); Mean Corp Hgb Conc. 33.7 g/dL (33.0-37.0); Mean Corpuscular Hgb 29.4 pg (27.0-31.0); Mean Corpuscular Volume 87.2 fL (81.0-99.0); Mean Platelet Volume 9.8 fL (7.4-10.4); Platelet Count 238 10^3/uL (130-400); Red Blood Cell Count 3.84 10^6/uL (4.20-5.40); Red Cell Dist. Width 13.8 % (11.5-14.5); White Blood Cell Count 7.5 10^3/uL (4.8-10.8)
[2024-05-13 07:28] LABS: Blood Urea Nitrogen 24 mg/dl (7-17); Calcium 8.9 mg/dl (8.4-10.2); Carbon Dioxide 27 mmol/L (22-30); Chloride 103 mmol/L (98-107); Estimated Creatinine Clearance 90 ml/min; Glucose 89 mg/dl (70-99); Magnesium 1.9 mg/dl (1.6-2.3); Phosphorus 4.1 mg/dl (2.5-4.5); Potassium 4.2 mmol/L (3.5-5.1); Sodium 141 mmol/L (135-145); eGFR > 60.00
[2024-05-13 07:34] VITALS: BP 93/52
--- NOTE | 2024-05-13 07:35 | W.PN.HOSP.TC ---
Today's Communication/Plan
-
percocet switched to Tylenol 1000 mg TID and Oxycodone 10 mg Q4HWA
Augmentin switched back to Unasyn while inpt (will switch back to Augmentin when ready for discharge)
Discharge planning, likely tomorrow home with outpt follow up recommendations.
Assessment / Plan
Assessment / Plan
Physical Exam
General: Conversant; no acute distress
HEENT: NormoCephalic, Anicteric, PERRLA, [place] Conjunctivae, No Ptosis Left facial swelling erythema inferior eye appears improved/resolving from initial presentation
Respiratory: Clear; No Wheezes, Rales or Rhonchi
Cardiac: S1/S2 NSR; No Murmur, Rub, Gallop, Peripheral Edema or JVD
GI: Soft, Non Tender, Normal Bowel Sounds and No Hepatosplenomegaly
Musculoskeletal: No Clubbing, No Cyanosis and No Edema
Skin: Warm and Dry; No Rash
Neuro: AO x 3
Psych: Calm
HPI 29F HX narcotic dependent Chronic pain syndrome , f/u at [facility] , on Immunosurpressed on Remicade ( last dose was 05/08/24 ) s/p root canal # 6 day prior, woke up wit T 99.8, Lt face swelling. Recent s/p #11
root maura on 04/26 complicated by dental abscess was hospitalized from 04/28 - 07/02, s/p Augementin completd on 05/06. 2 days later she had Remicadee and root canal on #6.
#Recurrent facial cellulitis with right mandibular air/fluid secondary to root canal concern for abscess
#Patient with root canal yesterday #6 on 05/08/2024 tooth
#History of facial cellulitis 04/28 - 05/02/2024 post Partial Root canal left upper canine tooth #11 due to large abscess root- TX' D with with prior Clindamycin x 2.5 days changed to oral Augmentin APR 28-
-Had Remicade infusion 05/08/2024 prior to dental procedure
-Finished oral Augmentin on 05/06/2024
-received IV Vancomycin, discontinued
-Per Admitting, Consult OMFS recommended oupt follow up
-ID ENT eval appreciated
-Unasyn converted to Augmentin planned for 7 days as per ID, switched back to Unasyn to continue while inpt (Augmentin to start on discharge)
-prn IV Toradol discontinued d/t swelling and eosinophilia
-pain medication adjusted to Percocet discontinued in favor of Tylenol 1000 mg TID and Oxycodone 10 mg Q4HWA, cont home Oxycontin 10 mg HS, Q4HPRN Oral Dilaudid 2mg moderate pain, 4 mg severe pain, IV Dilaudid 1mg Q3HPRN severe breakthrough pain
-magic mouthwash QID
CT facial bones with IV contrast:
1. Small amount of bilateral frontal/periorbital soft tissue swelling. No acute abnormalities identified within either orbit.
2. Small amount of abnormal air and fluid immediately adjacent to the right mandible as above. Given the history of root canal one day prior, most likely represents sequela of the recent surgery. Small abscess formation cannot be excluded. (the pt
has no pain Right lower Mandible, unlikely abscess given overall clinical presentation)
#Chronic pain unspecified to joints toes, knees, wrists, ankles, fingers Narcotic dependent
-Follows with [facility] pain management Dr Gregg Santo
-Continue gabapentin 300 mg 4 times daily
-Pain medications adjusted as above
#Crohn's disease
-Patient on Remicade had last infusion 05/08/2024
#Celiac disease
-Soft diet/celiac diet
#Hx IBS hx
#Hx anxiety
-Continue with Cymbalta 90 mg daily, clonazepam 1 mg p.o. twice daily
#GERD
-Continue Pepcid increased to 20 mg BID GI ppx while on Toradol prn, reduced to 20 mg HS with discontinuation Toradol
#Insomnia
Continue melatonin 10 mg at bedtime
#Constipation likely opiate induced
scheduled colace
prn miralax sennokot
DVT prophylaxis
Lovenox
Full code
I spent a total of 45 minutes with the patient or on the floor. More than 50% of this time involved counseling and coordination of care.
Anticipated Discharge: Within 24 hours
Subjective/Interval History
-
Date of Service: May 13, 2024
Continues to require IV pain med for severe breakthrough pain. Notes upset stomach with Augmentin but tolerable.
Objective Data
-
Labs:
Laboratory Results
05/13/24
06:27
WBC 7.5
Hgb 11.3 L
Hct 33.5 L
Plt Count 238
Sodium 141
Potassium 4.2
Chloride 103
Carbon Dioxide 27
BUN 24 H
Creatinine 0.8
Glucose 89
Calcium 8.9
Vital Signs:
Vital Signs
Temp Pulse Resp BP Pulse Ox
97.9 F 73 17 93/52 100
05/13/24 07:34 05/13/24 07:34 05/13/24 07:34 05/13/24 07:34 05/13/24 07:34
I&O
05/12/24 05/13/24 05/14/24
06:59 06:59 06:59
Intake Total 1560 / 1560 1440 / 1440
Output Total 1050 / 1050
Balance 510 / 510 1440 / 1440
[2024-05-13] MEDS: CYMBALTA DELAYED RELEASE 30 MG PO (08:11)
[2024-05-13] MEDS: PERCOCET 5/325 2 TABLET PO ×2 (08:11→13:00)
[2024-05-13] MEDS: CYMBALTA DELAYED RELEASE 60 MG PO (08:11)
[2024-05-13] MEDS: NEURONTIN 300 MG PO ×4 (08:11→23:20)
[2024-05-13] MEDS: VISBIOME 2 CAP PO (08:11)
[2024-05-13] MEDS: ATARAX 25 MG PO ×4 (08:12→23:20)
[2024-05-13] MEDS: AUGMENTIN 875 MG/125 MG 1 TABLET PO (08:12)
[2024-05-13] MEDS: COLACE 100 MG PO ×2 (08:12→20:11)
[2024-05-13] MEDS: VITAMIN C 500 MG PO ×2 (08:12→20:11)
[2024-05-13 11:32] LABS: % Basophils 0.5 % (0-2); % Immature Granulocytes 0.3 % (0-0.5); % Lymphocytes 45.1 % (20.5-51.1); % Monocytes 9.6 % (1.7-9.3); % Neutrophils 33.7 % (42.2-75.2); Absolute Eosinophils 0.8 10^3/uL (0-0.7); Absolute Lymphocytes 3.3 10^3/uL (1.2-3.4); Absolute Monocytes 0.7 10^3/uL (0.1-0.6); Absolute Neutrophils 2.5 10^3/uL (1.4-6.5); Nucleated Red Blood Cells % 0 %
[2024-05-13 11:33] LABS: % Eosinophils 10.8 % (0-6)
[2024-05-13] MEDS: KLONOPIN 1 MG PO ×2 (11:46→23:20)
[2024-05-13 15:13] VITALS: BP 112/72
[2024-05-13] MEDS: ROXICODONE 10 MG PO ×3 (15:54→23:23)
[2024-05-13] MEDS: TYLENOL 1000 MG PO ×2 (16:13→23:21)
[2024-05-13] MEDS: UNASYN IV ×2 (16:53→23:21)
[2024-05-13] MEDS: LOVENOX 40 MG SC (18:00)
[2024-05-13] MEDS: MAGIC OR MIRACLE MOUTHWASH 5 ML PO ×2 (20:12→23:20)
[2024-05-13 23:15] VITALS: BP 107/71
[2024-05-13] MEDS: MELATONIN 10 MG PO (23:20)
[2024-05-13] MEDS: THERAGRAN 1 TABLET PO (23:21)
[2024-05-13] MEDS: NON-FORMULARY ITEM 1 MG PO (23:21)
[2024-05-13] MEDS: PEPCID 20 MG PO (23:22)
[2024-05-13] MEDS: OXYCONTIN (CONTROLLED RELEASE) 10 MG PO (23:25)
[2024-05-14] MEDS: DILAUDID 4 MG PO ×3 (03:47→22:57)
[2024-05-14] MEDS: UNASYN IV ×4 (03:48→23:00)
[2024-05-14] MEDS: ROXICODONE 10 MG PO ×5 (04:30→21:53)
[2024-05-14] MEDS: DILAUDID 1 MG IV ×2 (06:37→10:26)
[2024-05-14 06:49] LABS: % Basophils 0.5 % (0-2); % Immature Granulocytes 0.4 % (0-0.5); % Lymphocytes 46.7 % (20.5-51.1); % Monocytes 8.6 % (1.7-9.3); % Neutrophils 32.8 % (42.2-75.2); Absolute Eosinophils 0.9 10^3/uL (0-0.7); Absolute Lymphocytes 3.7 10^3/uL (1.2-3.4); Absolute Monocytes 0.7 10^3/uL (0.1-0.6); Absolute Neutrophils 2.6 10^3/uL (1.4-6.5); Hematocrit 35.5 % (37.0-47.0); Hemoglobin 11.8 g/dL (12.0-16.0); Mean Corp Hgb Conc. 33.2 g/dL (33.0-37.0); Mean Corpuscular Hgb 29.1 pg (27.0-31.0); Mean Corpuscular Volume 87.7 fL (81.0-99.0); Mean Platelet Volume 9.6 fL (7.4-10.4); Nucleated Red Blood Cells % 0 %; Platelet Count 256 10^3/uL (130-400); Red Blood Cell Count 4.05 10^6/uL (4.20-5.40); Red Cell Dist. Width 13.7 % (11.5-14.5); White Blood Cell Count 7.9 10^3/uL (4.8-10.8)
--- NOTE | 2024-05-14 07:01 | W.PN.HOSP.TC ---
Today's Communication/Plan
-
Pain control
IV abx to convert to oral tomorrow
Plan for discharge Wednesday Morning in time for OMFS outpt follow up 10:45AM and later afternoon follow up with patient's pain specialist
Assessment / Plan
Assessment / Plan
Physical Exam
General: Conversant; no acute distress
HEENT: NormoCephalic, Anicteric, PERRLA, [place] Conjunctivae, No Ptosis Left facial maxillary swelling appears improved from initial presentation but not resolved
Respiratory: Clear; No Wheezes, Rales or Rhonchi
Cardiac: S1/S2 NSR; No Murmur, Rub, Gallop, Peripheral Edema or JVD
GI: Soft, Non Tender, Normal Bowel Sounds and No Hepatosplenomegaly
Musculoskeletal: No Clubbing, No Cyanosis and No Edema
Skin: Warm and Dry; No Rash
Neuro: AO x 3
Psych: Calm
HPI 29F HX narcotic dependent Chronic pain syndrome , f/u at [facility] , on Immunosurpressed on Remicade ( last dose was 05/08/24 ) s/p root canal # 6 day prior, woke up wit T 99.8, Lt face swelling. Recent s/p #11
root maura on 04/26 complicated by dental abscess was hospitalized from 04/28 - 07/02, s/p Augementin completd on 05/06. 2 days later she had Remicadee and root canal on #6.
#Recurrent facial cellulitis with right mandibular air/fluid secondary to root canal concern for abscess
#Patient with root canal yesterday #6 on 05/08/2024 tooth
#History of facial cellulitis 04/28 - 05/02/2024 post Partial Root canal left upper canine tooth #11 due to large abscess root- TX' D with with prior Clindamycin x 2.5 days changed to oral Augmentin APR 28-
-Had Remicade infusion 05/08/2024 prior to dental procedure
-Finished oral Augmentin on 05/06/2024
-received IV Vancomycin, discontinued
-ID ENT eval appreciated
-Unasyn to switch to Augmentin Tuesday 05/15 for discharge same day in time for outpt follow up appts as below
-prn IV Toradol discontinued d/t swelling ext's and eosinophilia
-pain medication adjusted to Percocet discontinued in favor of Tylenol 1000 mg TID and Oxycodone 10 mg Q4HWA, cont home Oxycontin 10 mg HS, Q4HPRN Oral Dilaudid 2mg moderate pain, 4 mg severe pain, IV Dilaudid 1mg Q3HPRN severe breakthrough pain
-magic mouthwash QID
-Case was discussed with OMFS who recommended outpatient follow up appt Scheduled 05/15/24Wed 10:45AM (patient agreeable), patient also has appt with her pain specialist Dr Gregg Santo 4PM same day. Then follow up with her Organic Preparation Analyst Lianne
05/16/24.
CT facial bones with IV contrast:
1. Small amount of bilateral frontal/periorbital soft tissue swelling. No acute abnormalities identified within either orbit.
2. Small amount of abnormal air and fluid immediately adjacent to the right mandible as above. Given the history of root canal one day prior, most likely represents sequela of the recent surgery. Small abscess formation cannot be excluded. (the pt
has no pain Right lower Mandible, unlikely abscess given overall clinical presentation)
#Chronic pain unspecified to joints toes, knees, wrists, ankles, fingers Narcotic dependent
-Follows with [facility] pain management Dr Gregg Santo (reachable via [facility] concrete boom pump operator)
-Continue gabapentin 300 mg 4 times daily
-Pain medications adjusted as above
#Crohn's disease
-Patient on Remicade had last infusion 05/08/2024
#Celiac disease
-Soft diet/celiac diet
#Hx IBS hx
#Hx anxiety
-Continue with Cymbalta 90 mg daily, clonazepam 1 mg p.o. twice daily
#GERD
-Continue Pepcid increased to 20 mg BID GI ppx while on Toradol prn, reduced to 20 mg HS with discontinuation Toradol
#Insomnia
Continue melatonin 10 mg at bedtime
#Constipation likely opiate induced resolved
colace converted back to prn, patient denies diarrhea but has concerns impending diarrhea with loose stools
prn miralax sennokot
DVT prophylaxis
Lovenox
Full code
Discharge planning Tuesday 05/15 for outpatient morning follow up OMFS and afternoon follow up with her pain specialist.
Discussed with patient, patient's father Alirio, Nurse, patient's outpt pain specialist, and OMFS transmission builder.
I spent a total of 60 minutes with the patient or on the floor. More than 50% of this time involved counseling and coordination of care.
Anticipated Discharge: Within 24 hours
Subjective/Interval History
-
Date of Service: May 14, 2024
Pain persists exacerbated with conversation. Reports some relief with magic mouthwash
Objective Data
-
Labs:
Laboratory Results
05/14/24
06:27
WBC 7.9
Hgb 11.8 L
Hct 35.5 L
Plt Count 256
Sodium Pending
Potassium Pending
Chloride Pending
Carbon Dioxide Pending
BUN Pending
Creatinine Pending
Glucose Pending
Calcium Pending
Vital Signs:
Vital Signs
Temp Pulse Resp BP Pulse Ox
98.6 F 108 17 107/71 97
05/13/24 23:15 05/13/24 23:15 05/13/24 23:15 05/13/24 23:15 05/13/24 23:15
I&O
05/13/24 05/14/24 05/15/24
06:59 06:59 06:59
Intake Total 1440 / 1440
Balance 1440 / 1440
[2024-05-14 07:26] LABS: Blood Urea Nitrogen 23 mg/dl (7-17); Calcium 8.9 mg/dl (8.4-10.2); Carbon Dioxide 27 mmol/L (22-30); Chloride 104 mmol/L (98-107); Estimated Creatinine Clearance 103 ml/min; Glucose 87 mg/dl (70-99); Phosphorus 4.2 mg/dl (2.5-4.5); Potassium 4.3 mmol/L (3.5-5.1); Sodium 141 mmol/L (135-145); eGFR > 60.00
[2024-05-14] MEDS: CYMBALTA DELAYED RELEASE 30 MG PO (07:57)
[2024-05-14] MEDS: NEURONTIN 300 MG PO ×4 (07:58→22:57)
[2024-05-14] MEDS: VITAMIN C 500 MG PO ×2 (07:58→21:53)
[2024-05-14] MEDS: MAGIC OR MIRACLE MOUTHWASH 5 ML PO ×4 (07:58→22:59)
[2024-05-14] MEDS: TYLENOL 1000 MG PO ×3 (07:59→22:57)
[2024-05-14] MEDS: ATARAX 25 MG PO ×4 (07:59→22:58)
[2024-05-14] MEDS: VISBIOME 2 CAP PO (07:59)
[2024-05-14] MEDS: CYMBALTA DELAYED RELEASE 60 MG PO (08:11)
[2024-05-14] MEDS: COLACE 100 MG PO (08:11)
[2024-05-14 08:13] VITALS: BP 118/75
[2024-05-14] MEDS: KLONOPIN 1 MG PO ×2 (12:29→22:59)
[2024-05-14 15:00] VITALS: BP 110/71
--- NOTE | 2024-05-14 15:09 | PTCARENOTE ---
Patient expressed concern with Klonopin being administered at similar times as pain medications. RN asked patient if she would like to separate Klonopin dose, and could take it at a later time. Patient declined, and stated 'I have been taking it
while I have been in here like this without any issues. My fiance is here, and he will watch my breathing while I take a nap'. RN assured patient that this will be relayed to MD for review. Patient is getting frequent pain medications throughout the
day for breakthrough pain. Will continue to monitor. MD notified.
--- NOTE | 2024-05-14 16:48 | PTCARENOTE ---
Patient AAOx3 awoken from a nap to talk to Oral Surgeon on phone. Patient received 4mg Diluadid P.O for severe pain at 1414. Patient receiving Oxycodone per schedule dose at 1628, and while administering oxycodone patient requested to receive IV
Diluadid 1mg. RN discussed with patient the frequency of pain meds given, the 4mg P.O dose given less then 3 hours prior, the patient just receiving the oxycodone. RN asked for patient to wait until 1715 for the IV Diluadid which was within 20
minutes after the oxycodone administration. Patient upset, asking to discuss with MD. Patient stated 'This happened yesterday, and this was suppose to be noted that I can receive IV Diluadid soon after the oral Diluadid'. RN discussed with MD.
came to patients bedside, along with RN and another floor RN to discuss with patient the nursing reasoning for spacing out pain medications. Patient is AAOx3, sitting up in bed with a calm demeanor. Patients father next to patient in chair. Patient
to receive IV Diluadid at 1715.
[2024-05-14] MEDS: LOVENOX 40 MG SC (17:12)
--- NOTE | 2024-05-14 20:01 | W.DCSUMMARY ---
Discharge Summary
Discharge Data
Date of Admission: 05/09/24
Date of Discharge: 05/14/24
-
Pending Results: No
Discharge Plan
-
Patient Disposition: Home (Routine Discharge)
Discharge Diagnosis/Procedures: Recurrent Left Facial Cellulitis Swelling following recent Dental Procedure
Eosinophilia
Chronic pain narcotic dependent
Crohn's disease
Celiac disease
Anxiety/Insomnia
GERD
Condition: Fair
Diet: Other diet
Additional Diets: Gluten Free
Activity: As tolerated
Driving Restrictions: Not until seen by your Dr
Bathing Restrictions: None
Blood Work: Repeat CBC with differential in 1 week of discharge with primary care provider to follow up on eosinophilia (recommend avoiding NSAID use at this time due to eosinophilia)
Activity Restrictions/Additional Instructions:
Please keep your appointments with oral surgeon and pain specialist. Follow up with primary care provider in 1 week of discharge.
Augmentin has been refilled for 7 more days.
Probiotic has been prescribed to promote gut health while on antibiotics
Please follow up with your primary care provider or other healthcare provider involved in your care for refills and/or further adjustment to your medication regimen as necessary.
Referrals:
Nadege yDson PA [Family Provider] - in one week
Gregg Santo MD [Non-Admitting Privileges] - 05/15/24 4:00 pm
Shirley Cabrales DDS [Active] - 05/15/24 10:45 am
Prescriptions:
New
Visbiome 112.5 billion cell capsule
2 cap PO DAILY Qty: 30 0RF
Continued
oxycodone 10 mg Tablet
10 mg PO Q4HPRN PRN (Reason: severe pain)
Patient Comments:
pdmp filled on 04/16/24 #150 max 5 tablets in 24 hours
clonazepam 1 mg Tablet
1 mg PO BID@1130,1999
fexofenadine 180 mg Tablet
360 mg PO HS
acetaminophen [Tylenol Extra Strength] 500 mg Tablet
1,000 mg PO Q6HPRN PRN (Reason: mild pain)
famotidine [Pepcid] 20 mg Tablet
10 mg PO HS
ascorbic acid (vitamin C) [Vitamin C] 500 mg Tablet
500 mg PO BID
infliximab [Remicade] 100 mg Recon Soln
7.5 mg IV Q6W
Rx Instructions:
7.5 mg/kg
gabapentin 300 mg Capsule
300 mg PO QID
hydroxyzine pamoate 25 mg capsule
25 mg PO QID
duloxetine [Cymbalta] 30 mg Capsule,Delayed Release(Dr/Ec)
30 mg PO DAILY
Rx Instructions:
take with 60mg
duloxetine [Cymbalta] 60 mg Capsule,Delayed Release(Dr/Ec)
60 mg PO DAILY
Rx Instructions:
take with 30mg
melatonin 10 mg Tablet
10 mg PO HS
oxycodone [OxyContin] 10 mg Tablet,Oral Only,Ext.Rel.12 Hr
10 mg PO HS
vitamin A 3,000 mcg (10,000 unit) Capsule
3,000 mcg PO HS
lidocaine HCl [Lidocaine Viscous] 2 % Solution
10 ml PO Q4HPRN PRN (Reason: MOUTH ULCERS) Qty: 100 0RF
therapeutic multivitamin Tablet
1 tab PO HS
hydromorphone 4 mg Tablet
4 mg PO Q4HPRN PRN (Reason: severe pain)
amoxicillin-pot clavulanate 875-125 mg Tablet
1 tab PO Q12 7 Days Qty: 14 0RF
Discontinued
Magic Mouthwash
1 dose PO Q3HPRN PRN (Reason: mouth pain/thrush)
Rx Instructions:
Benadryl/Lidocaine/Mylanta swich and spit every 3 hours
Discharge Orders:
Discharge Patient (As Directed); Ordered 05/15/24
Ordered By: Mayur Payton
Discharge Date and Time
Print Language: NEPALESE
[2024-05-14] MEDS: THERAGRAN 1 TABLET PO (22:57)
[2024-05-14 22:58] VITALS: BP 99/65
[2024-05-14] MEDS: PEPCID 20 MG PO (22:58)
[2024-05-14] MEDS: MELATONIN 10 MG PO (22:58)
[2024-05-14] MEDS: OXYCONTIN (CONTROLLED RELEASE) 10 MG PO (22:59)
[2024-05-14] MEDS: NON-FORMULARY ITEM 1 MG PO (23:02)
[2024-05-15] MEDS: ROXICODONE 10 MG PO ×2 (02:40→08:27)
[2024-05-15] MEDS: DILAUDID 1 MG IV (03:58)
[2024-05-15 07:30] VITALS: BP 111/58
[2024-05-15] MEDS: VITAMIN C 500 MG PO (08:26)
[2024-05-15] MEDS: NEURONTIN 300 MG PO (08:26)
[2024-05-15] MEDS: CYMBALTA DELAYED RELEASE 30 MG PO (08:26)
[2024-05-15] MEDS: AUGMENTIN 875 MG/125 MG 1 TABLET PO (08:26)
[2024-05-15] MEDS: CYMBALTA DELAYED RELEASE 60 MG PO (08:26)
[2024-05-15] MEDS: ATARAX 25 MG PO (08:26)
[2024-05-15] MEDS: VISBIOME 2 CAP PO (08:26)
[2024-05-15] MEDS: TYLENOL 1000 MG PO (08:27)
[2024-05-15] MEDS: MAGIC OR MIRACLE MOUTHWASH PO ×2 (08:27→08:33)
[2024-05-15] MEDS: ROXICODONE PO (08:39)
--- NOTE | 2024-05-15 09:36 | W.PN.UPDATE ---
Update Note
Progress Note Update
I went to see patient today and she had already left (d/c completed by Dr Payton). I did not see patient today.
== END 2024-05-15 09:33 | disposition home or self-care (01) | DRG 158 ==
LOC: 3 WEST ACU 13:19
PROVIDERS: Clinical Nurse Specialist Family Health; Internal Medicine; Physician Assistant; ADMITTING PHYSICIAN Internal Medicine; ATTENDING PHYSICIAN Hospitalist; CONSULT PHYSICIAN Otolaryngology Facial Plastic Surgery; EMERGENCY PHYSICIAN Student in an Organized Health Care Education/Training Program; FAMILY PHYSICIAN Physician Assistant Medical; OTHER PHYSICIAN Internal Medicine Infectious Disease
PROC: 09JK8ZZ Inspection of Nasal Mucosa and Soft Tissue, Via Natural or Artificial Opening Endoscopic (ICD-10-PCS; 2024-05-10)
DX: K04.7 Periapical abscess without sinus (principal); D84.821 Immunodeficiency due to drugs; L03.211 Cellulitis of face; F11.20 Opioid dependence, uncomplicated; K50.90 Crohn's disease, unspecified, without complications; G89.4 Chronic pain syndrome; K90.0 Celiac disease; F41.9 Anxiety disorder, unspecified; G47.00 Insomnia, unspecified; K21.9 Gastro-esophageal reflux disease without esophagitis; Z98.818 Other dental procedure status; Z79.899 Other long term (current) drug therapy; Z79.620 Long term (current) use of immunosuppressive biologic
CPT/HCPCS: 70487; 80048; 80053; 83735; 84100; 84703; 85025; 96365; 96375; 96376; 99285; Q9967

== ENCOUNTER 2024-05-20 02:26 | Inpatient (IN) | payer OTHER, SELFPAY ==
[2024-05-19 21:26] VITALS: BP 116/77
--- NOTE | 2024-05-19 23:09 | ED.GENMED ---
History of Present Illness
<Gamaliel Brizuela MD - Last Filed: 05/20/24 14:10>
General
Chief Complaint: Abdominal Symptoms
Source: patient
Exam Limitations: none
Time Seen by Provider: 05/19/24 23:13
Nursing documentation reviewed up to this point in time: agreed with
History of Present Illness
History of Present Illness:
Patient with history of Crohn's disease and recent multiple admission to the hospital secondary to complications from root canal and tooth infection, which progressed to facial cellulitis, status post tooth extraction yesterday, presents to ED
secondary to significant abdominal pain over the past 48 hours, likely secondary to recent antibiotic treatment. Patient was started on antibiotics by her oral surgeon after tooth extraction. She was informed that her antibiotics must continue as
she is high risk for infection due to bone graft. Unfortunately, taking antibiotics has affected her stomach. Patient denies fever or chills. Denies diarrhea. Denies trauma. Denies chest pain or shortness of breath. Patient reports nausea
sensation without vomiting.
Past History
<FRANDY Silver - Last Filed: >
Past History
ED Past Medical History: Other (Crohn's disease, celiac, IBS, anxiety)
ED Past Surgical History: Orthopedic and Other (Bowel surgery)
Social History
Tobacco: Non-smoker
Alcohol: Occasional
Drug: None
Personal: Other (Engage)
Living: with family
Employment: Employed
Family History
Family History: Other (her dads mother had Juvenile RA, mother has palpitations)
Review of Systems
<Gamaliel Brizuela MD - Last Filed: 05/20/24 14:10>
Review of Systems
Allergies reviewed?: Yes
All Other Systems: ROS reviewed and negative except as documented in HPI and ROS
Constitutional: Reports no symptoms; Denies fever or chills
Respiratory: Reports no symptoms; Denies cough
Cardiac: Reports no symptoms; Denies palpitations
ABD/GI: Reports abdominal pain and nausea; Denies vomiting or diarrhea
Musculoskeletal: Reports no symptoms
Skin: Reports no symptoms
Neurological: Reports no symptoms
Phy Exam
<Gamaliel Brizuela MD - Last Filed: 05/20/24 14:10>
Physical Exam
Physical Exam:
Physical Exam
General: mild painful distress, not acutely ill. afebrile. tachycardic
Head: nc/at. eomi
Neck: supple. normal range of motion.
Heart: tachycardic, no murmur. equal radial pulses.
Lungs: no acute respiratory distress. clear bilaterally
Abdomen: normal bowel sounds. mild, diffuse tenderness to palpation without rebound/guarding. no distention
Neuro: alert and oriented. no focal neurological deficits
Skin: no rash
Psychiatric: well kept. interactive and cooperative
Extremities: no edema. no calf tenderness.
Course
<Gamaliel Brizuela MD - Last Filed: 05/20/24 14:10>
Orders/Labs/Results
Orders:
Orders
05/19/24 23:23
Basic Metabolic Panel Urgent
Comment: NO K
Complete Blood Count/With Diff Urgent
HCG, Serum Qualitative Screen Urgent
0.9% Sodium Chloride 500 ml [Nss] 500 ml IV BOLUS
HYDROmorphone [Dilaudid] 1 mg IV NOW STA
Test Result ONCE
05/20/24 01:47
Ampicillin/Sulbactam 3 G [Unasyn] 3 gm 0.9% Sodium Chloride 100 ml [Nss] 100 ml IV NOW
05/20/24 02:00
Admit/Transfer Patient As Directed
Co-Sign Provider:
Level of Care: Inpatient admission
Assign to:: Medical/Surgical
Physician / Group: Hospitalist
Diagnosis: tooth infection
Reason for Hospitalization: tooth infection
Expected length of stay greater than two midnights?: Yes
ELOS- Estimated Length of Stay in days: 2
I certify the patient meets the requirements for IP care: Yes
PRN Pain Medication Management As Directed
May give lesser potent ordered pain med per pt: Yes
preference::
Protocol:: Medication orders for pain may be administered in a
manner that supports deferring to patient preference
when the pt is:
- Requesting an ordered lesser potent pain medication.
Least to most potent pain medications are defined
as: acetaminophen < NSAID < tramadol < opioids
(morphine, oxycodone, hydromorphone).
- Requesting a lesser dose of the same medication IF
ORDERED.
- Requesting a less intrusive route of administration
if both routes are prescribed by the provider (PO <
IV).
05/20/24 02:03
Code Status As Directed
Resuscitation Status: Full Code
05/20/24 03:37
Acetaminophen [Tylenol] 650 mg PO Q4HPRN PRN
Bisacodyl [Dulcolax] 10 mg RECTAL [id number] PRN
Docusate W/Senna [Senokot-S] 1 tablet PO BIDPRN PRN
HYDROmorphone [Dilaudid] 1 mg IV Q3HPRN PRN
Ondansetron Injectable [Zofran] 4 mg IV Q6HPRN PRN
Oxycodone [Roxicodone] 10 mg PO Q4HPRN PRN
Polyethylene Glycol Powder [Miralax] 17 grams PO DAILYPRN PRN
05/20/24 03:37
Activity As Directed
Activity Level: With Assistance
Pneumatic Compression Sleeves As Directed
Type: Knee high
DX Deep Vein Thrombosis Video Routine
05/20/24 Breakfast
Full Liquids
At Your Request: Limited Participation
05/20/24 08:00
Ampicillin/Sulbactam 3 G [Unasyn] 3 gm 0.9% Sodium Chloride 100 ml [Nss] 100 ml IV Q6H
Duloxetine Delayed Release [Cymbalta Delayed Release] 90 mg PO DAILY
Gabapentin [Neurontin] 300 mg PO QID
Lactobac/Bifidobac [Visbiome] 2 cap PO DAILY
05/20/24 11:30
Clonazepam [Klonopin] 1 mg PO BID@1130,2000
05/20/24 22:00
Famotidine [Pepcid] 10 mg PO HS
Loratadine [Claritin] 10 mg PO HS
Melatonin 10 mg PO HS
Multivitamin [Theragran] 1 tablet PO HS
Oxycodone Controlled Release [Oxycontin (Controlled Release)] 10 mg PO HS
Abnormal Lab Results
05/20/24
00:19
Abs Immat Gran (auto) 0.1 H 10^3/uL
(0-0.05)
Absolute Lymphs (auto) 3.9 H 10^3/uL
(1.2-3.4)
Absolute Monos (auto) 0.9 H 10^3/uL
(0.1-0.6)
Immature Gran % 0.9 H %
(0-0.5)
05/20/24 00:19
05/20/24 00:19
Vital Signs
Initial and Last Documented VS:
Initial Vital Signs
Temp Pulse Resp BP Pulse Ox
98.2 F 127 20 116/77 99
05/19/24 21:26 05/19/24 21:26 05/19/24 21:26 05/19/24 21:26 05/19/24 21:26
Last Documented Vital Signs
Temp Pulse Resp BP Pulse Ox
98.0 F 90 16 109/71 99
05/20/24 07:55 05/20/24 07:55 05/20/24 07:55 05/20/24 07:55 05/20/24 07:55
<FRANDY Silver - Last Filed: >
Orders/Labs/Results
Orders:
Orders
05/19/24 23:23
Basic Metabolic Panel Urgent
Comment: NO K
Complete Blood Count/With Diff Urgent
HCG, Serum Qualitative Screen Urgent
0.9% Sodium Chloride 500 ml [Nss] 500 ml IV BOLUS
HYDROmorphone [Dilaudid] 1 mg IV NOW STA
Test Result ONCE
05/20/24 01:47
Ampicillin/Sulbactam 3 G [Unasyn] 3 gm 0.9% Sodium Chloride 100 ml [Nss] 100 ml IV NOW
05/20/24 02:00
Admit/Transfer Patient As Directed
Co-Sign Provider:
Level of Care: Inpatient admission
Assign to:: Medical/Surgical
Physician / Group: Hospitalist
Diagnosis: tooth infection
Reason for Hospitalization: tooth infection
Expected length of stay greater than two midnights?: Yes
ELOS- Estimated Length of Stay in days: 2
I certify the patient meets the requirements for IP care: Yes
PRN Pain Medication Management As Directed
May give lesser potent ordered pain med per pt: Yes
preference::
Protocol:: Medication orders for pain may be administered in a
manner that supports deferring to patient preference
when the pt is:
- Requesting an ordered lesser potent pain medication.
Least to most potent pain medications are defined
as: acetaminophen < NSAID < tramadol < opioids
(morphine, oxycodone, hydromorphone).
- Requesting a lesser dose of the same medication IF
ORDERED.
- Requesting a less intrusive route of administration
if both routes are prescribed by the provider (PO <
IV).
05/20/24 02:03
Code Status As Directed
Resuscitation Status: Full Code
05/20/24 03:37
Acetaminophen [Tylenol] 650 mg PO Q4HPRN PRN
Bisacodyl [Dulcolax] 10 mg RECTAL [id number] PRN
Docusate W/Senna [Senokot-S] 1 tablet PO BIDPRN PRN
HYDROmorphone [Dilaudid] 1 mg IV Q3HPRN PRN
Ondansetron Injectable [Zofran] 4 mg IV Q6HPRN PRN
Oxycodone [Roxicodone] 10 mg PO Q4HPRN PRN
Polyethylene Glycol Powder [Miralax] 17 grams PO DAILYPRN PRN
05/20/24 03:37
Activity As Directed
Activity Level: With Assistance
Pneumatic Compression Sleeves As Directed
Type: Knee high
DX Deep Vein Thrombosis Video Routine
05/20/24 Breakfast
Full Liquids
At Your Request: Limited Participation
05/20/24 08:00
Ampicillin/Sulbactam 3 G [Unasyn] 3 gm 0.9% Sodium Chloride 100 ml [Nss] 100 ml IV Q6H
Duloxetine Delayed Release [Cymbalta Delayed Release] 90 mg PO DAILY
Gabapentin [Neurontin] 300 mg PO QID
Lactobac/Bifidobac [Visbiome] 2 cap PO DAILY
05/20/24 11:30
Clonazepam [Klonopin] 1 mg PO BID@1130,2000
05/20/24 22:00
Famotidine [Pepcid] 10 mg PO HS
Loratadine [Claritin] 10 mg PO HS
Melatonin 10 mg PO HS
Multivitamin [Theragran] 1 tablet PO HS
Oxycodone Controlled Release [Oxycontin (Controlled Release)] 10 mg PO HS
Abnormal Lab Results
05/20/24
00:19
Abs Immat Gran (auto) 0.1 H 10^3/uL
(0-0.05)
Absolute Lymphs (auto) 3.9 H 10^3/uL
(1.2-3.4)
Absolute Monos (auto) 0.9 H 10^3/uL
(0.1-0.6)
Immature Gran % 0.9 H %
(0-0.5)
05/20/24 00:19
05/20/24 00:19
Vital Signs
Initial and Last Documented VS:
Initial Vital Signs
Temp Pulse Resp BP Pulse Ox
98.2 F 127 20 116/77 99
05/19/24 21:26 05/19/24 21:26 05/19/24 21:26 05/19/24 21:26 05/19/24 21:26
Last Documented Vital Signs
Temp Pulse Resp BP Pulse Ox
98.0 F 90 16 109/71 99
05/20/24 07:55 05/20/24 07:55 05/20/24 07:55 05/20/24 07:55 05/20/24 07:55
<Gamaliel Brizuela MD - Last Filed: 05/20/24 14:10>
MDM/Problems Addressed
MDM/Problems Addressed:
History and exam concerning for significant abdominal discomfort with dehydration, secondary to ongoing abdominal pain, likely secondary to recent prolonged use of antibiotics. Abdominal exam soft and benign, not requiring any imaging studies at
this time. Patient will be admitted for symptomatic treatment, including IV pain medication and IV antibiotics. May need to discuss with her oral surgeon about whether or not patient will need to continue oral antibiotics for extended period of
time.
<Gamaliel Brizuela MD - Last Filed: 05/20/24 14:10>
*Critical Care Note
Total Time (30-74mins, 75-104mins- exclusive of procedures): Not Applicable
ED Attending Note
<FRANDY Silver - Last Filed: >
-
Portions of this chart may have been created with voice recognition software.� Occasional wrong word or��sound alike� substitutions may have occurred due to the inherent limitations of voice recognition software.
Discharge Plan
Departure
Patient Disposition: Admit
Date of Disposition: 05/20/24
Time of Disposition: 01:15
Admit to: Med/Surg
Presentation/result/management discussed w/ accepting MD/DO: Hospitalist
Discharge Problem:
Abdominal pain, Infected tooth
Interventions
Interventions:
*Risk Screen - Suicide Last Done: 05/20/24 03:49
*General Assessment Last Done: 05/19/24 21:26
*Neglect/Abuse Screening Last Done: 05/20/24 01:51
ED- Fall Risk Assessment Last Done: 05/20/24 03:29
*ED COVID-19 Vaccine History Last Done: 05/20/24 03:49
*Nursing Disposition Last Done: 05/20/24 03:29
BQ-Ijpgzr-Lnrczmrfrb Assessment Last Done: 05/20/24 01:49
Discharge Date and Time
Discharge Date/Time: 05/20/24 03:30
[2024-05-20] MEDS: DILAUDID 1 MG IV ×5 (00:18→18:36)
[2024-05-20] MEDS: NSS 500 IV (00:18)
[2024-05-20 00:40] LABS: HCG, Serum Qualitative Screen Negative
[2024-05-20 00:46] LABS: Blood Urea Nitrogen 12 mg/dl (7-17); Carbon Dioxide 22 mmol/L (22-30); Chloride 102 mmol/L (98-107); Glucose 90 mg/dl (70-99); Sodium 142 mmol/L (135-145); eGFR > 60.00
[2024-05-20 00:53] LABS: % Basophils 0.4 % (0-2); % Eosinophils 4.4 % (0-6); % Immature Granulocytes 0.9 % (0-0.5); % Lymphocytes 38.8 % (20.5-51.1); % Monocytes 8.5 % (1.7-9.3); Absolute Eosinophils 0.4 10^3/uL (0-0.7); Absolute Immature Granulocytes 0.1 10^3/uL (0-0.05); Absolute Lymphocytes 3.9 10^3/uL (1.2-3.4); Absolute Monocytes 0.9 10^3/uL (0.1-0.6); Absolute Neutrophils 4.7 10^3/uL (1.4-6.5); Hemoglobin 13.6 g/dL (12.0-16.0); Mean Corp Hgb Conc. 35.8 g/dL (33.0-37.0); Mean Corpuscular Hgb 29.8 pg (27.0-31.0); Mean Corpuscular Volume 83.3 fL (81.0-99.0); Mean Platelet Volume 9.9 fL (7.4-10.4); Nucleated Red Blood Cells % 0 %; Platelet Count 286 10^3/uL (130-400); Red Blood Cell Count 4.56 10^6/uL (4.20-5.40); Red Cell Dist. Width 13.5 % (11.5-14.5); White Blood Cell Count 10.1 10^3/uL (4.8-10.8)
[2024-05-20 01:17] VITALS: BMI 26.5
--- NOTE | 2024-05-20 01:50 | HPS.HSE ---
Family Physician
-
Family Physician: NOT KNOW UNKNOWN - PT DOES
Chief Complaint
-
Abdominal discomfort on antibiotics following tooth extraction after extensive course of antibiotics for oral abscess with cellulitis.
History of Present Illness
This is a 29-year-old female with history of Crohn's colitis on Remicade, chronic pain on chronic opioids at home, anxiety and depression who presents to the emergency department following today's traction at the oral surgeon on due to
concern for development of Crohn's flare in the setting of oral antibiotics as as previously abdomen.
The patient has been dealing with tooth abscess for several weeks now and has had multiple hospitalizations for concerns of tooth abscess with communication and development of preseptal cellulitis. She essentially has been on IV antibiotics for the
last 3 weeks. Ultimately she was referred to oral maxillofacial surgery after our last admission for IV antibiotics. She had the extraction done on . She was supposed to continue on the antibiotics she was discharged on for the next 7
days after the procedure however patient will not tolerate oral antibiotics and said to come to the emergency department for IV antibiotics as suggested by surgeon.
She has had no fevers or chills. She is otherwise able to tolerate p.o. as per the instructions from the surgeon. Chronic pain is under control but patient has been prescribed additional opioids for breakthrough pain due to the surgical extraction
and bone graft placement.
In the ED she was afebrile, hemodynamically stable and in no acute distress. CBC and chemistry were within normal limits.
Medical History
Past Medical History
Past Medical History: Reports Other (Crohn's disease)
Additional Past Medical History:
Chronic pain
Anxiety
Past Surgical History: Reports None
Social History
Tobacco: Non-smoker
Alcohol: None
Drug: None
Personal:
Employment: Employed
Family History
Family History: Not pertinent
Allergies / Home Medications
Allergies reflects when Allergies were last updated in [employer].
Home Medications with original date entered in [employer]
Allergy/Medication List:
Allergies
Allergy/AdvReac Type Severity Reaction Status Date / Time
egg Allergy Anaphylaxis Verified 05/19/24 21:26
gluten Allergy stomach Verified 05/19/24 21:26
pain
prochlorperazine Allergy Akathesia Verified 05/19/24 21:26
shrimp Allergy Unknown Verified 05/19/24 21:26
tree nut Allergy Hives Verified 05/19/24 21:26
Home Medications
oxycodone 10 mg tablet 10 mg PO Q4HPRN PRN severe pain 02/12/23
acetaminophen 500 mg tablet (Tylenol Extra Strength) 1,000 mg PO Q6HPRN PRN mild pain 01/15/24
ascorbic acid (vitamin C) 500 mg tablet (Vitamin C) 500 mg PO BID Supplement 01/15/24
clonazepam 1 mg tablet 1 mg PO BID@1130,2000 Mental Health/Anxiety 01/15/24
duloxetine 30 mg capsule,delayed release (Cymbalta) 30 mg PO DAILY mental health 01/15/24
duloxetine 60 mg capsule,delayed release (Cymbalta) 60 mg PO DAILY mental health 01/15/24
famotidine 20 mg tablet (Pepcid) 10 mg PO HS Gastrointestinal Issue 01/15/24
fexofenadine 180 mg tablet 360 mg PO HS Allergies 01/15/24
gabapentin 300 mg capsule 300 mg PO QID Neurological Condition 01/15/24
hydroxyzine pamoate 25 mg capsule 25 mg PO QID Mental Health/Anxiety 01/15/24
infliximab 100 mg intravenous solution (Remicade) 7.5 mg IV Q6W Crohn's disease 01/15/24
melatonin 10 mg tablet 10 mg PO HS Sleep 01/15/24
oxycodone 10 mg tablet,crush resistant,extended release 12 hr (OxyContin) 10 mg PO HS chronic pain 01/15/24
vitamin A 3,000 mcg (10,000 unit) capsule 3,000 mcg PO HS Supplement 02/26/24
lidocaine HCl 2 % mucosal solution (Lidocaine Viscous) 10 ml PO Q4HPRN PRN MOUTH ULCERS #100 mL 05/02/24
hydromorphone 4 mg tablet 4 mg PO Q4HPRN PRN severe breakthrough pain 05/09/24
therapeutic multivitamin 1 tab PO HS Supplement 05/09/24
Lactobac no.2-Bifidobac no.1-S. thermo 112.5 billion cell capsule (Visbiome) 2 cap PO DAILY #30 caps 05/14/24
amoxicillin 875 mg-potassium clavulanate 125 mg tablet 1 tab PO Q12 Infection 7 days #14 tabs 05/14/24
Review of Systems
-
History Source: Patient
Constitutional: Reports No Symptoms
EENT: Reports Mouth Pain
Respiratory: Reports No Symptoms
Cardiac: Reports No Symptoms
Abdomen/GI: Reports No Symptoms
: Reports No Symptoms
Musculoskeletal: Reports No Symptoms
Skin: Reports No Symptoms
Neurological: Reports No Symptoms
Endocrine: Reports No Symptoms
Hematologic/Lymphatic: Reports No Symptoms
Psych: Reports No Symptoms
Physical Exam
Vital Signs
Vital Signs
Temp Pulse Resp BP Pulse Ox
98.2 F 127 20 116/77 99
05/19/24 21:26 05/19/24 21:26 05/19/24 21:26 05/19/24 21:26 05/19/24 21:26
Physical Exam
General: Well Developed, Well Nourished, No Apparent Distress and Comfortable
HEENT: NormoCephalic, Anicteric, Moist mucous membranes, PERRLA and [place] Conjunctivae
Respiratory: Clear, Wheezes and Rales
Cardiac: Regular Rhythm
Breast: Deferred by me
GI: Soft, Non Tender, Non Distended and Normal Bowel Sounds
Rectal: Deferred by Provider
Genito-urinary: Deferred by me
Musculoskeletal: No Clubbing and No Cyanosis
Skin: Warm
Neuro: AO x 3
Hematologic/Lymphatic: No Lymphadenopathy
Psych: Calm
Laboratory Results
-
05/20/24 00:19
05/20/24 00:19
Data Reviewed
-
Lab Data: Labs Reviewed by me
Old Records: Reviewed
Impression/Plan
-
IMPRESSION:
29 F with crohns on remicaide (last dose May 08) presents following tooth extraction (infected tooth with perforation of root canal space) for IV abx per arrangement with her oral surgeon. She has been on augmentin and tolerated up to 5 days
before developement of GI symptoms but now needs to be on abx for another 7 days till follow up on May 24.
PLAN:
1. Tooth abscess - S/P extraction. No acute infectious process at this time. Needs IV abx because intolerant of oral.
- admit to med/surg
- unasyn IV x 4 to 5 days (at least over the weekend)
- pain control per home regimen.
2. Pain management - patient w/ exacting pain regimen
- oxy ER 10 mg HS
- oxy IR 10mg q 4 hours prn, takes it regularly so ordered standing with hold parameters, then 10mg daiily hs
- dilauid IV for breakthrough pain
- continue gabapentin tid for now
3. Celiac
- gluten free diet
- liquid diet for now, can tolerate home PO diet
DVT PPX - SCDs
Code Status - Full Code
[2024-05-20 01:51] VITALS: BP 110/59
[2024-05-20] MEDS: UNASYN IV ×4 (02:52→20:47)
[2024-05-20 03:41] VITALS: BP 123/81
[2024-05-20 03:47] VITALS: BMI 26.0
--- NOTE | 2024-05-20 05:09 | PTCARENOTE ---
05/20/2024 - PT admitted to room 2129 from the ED @ approx. 04:00. PT ambulated independently from stretcher to bed without any assistance. PT oriented to room, call kimbrough, plan of care discussed. PT is AAOX3 and able to fully participate in
admission questions. Assessment as documented.
[2024-05-20 07:55] VITALS: BP 109/71
[2024-05-20] MEDS: CYMBALTA DELAYED RELEASE 90 MG PO (08:20)
[2024-05-20] MEDS: NEURONTIN 300 MG PO ×4 (08:21→21:45)
[2024-05-20] MEDS: VISBIOME 2 CAP PO (08:21)
[2024-05-20] MEDS: KLONOPIN 1 MG PO ×2 (10:59→23:35)
[2024-05-20] MEDS: ROXICODONE 10 MG PO ×2 (10:59→16:59)
--- NOTE | 2024-05-20 11:11 | CM ---
Addendum entered by Teetee Padilla 05/20/24 16:08:
Pt requested to speak w/ CM
Pt expressed some concerns w/ care. Request for new physician. New physician assignment pending
CM provided emotional support at this time as pt appeared upset and crying.
CM understands pt will cont. IV abx, pending new attending physician.
CM will cont. to follow for d/c planning and support as needed
Original Note:
Pt seen bedside w/ S/O. Pt lives w/ mother and father in a 2ST[facility]- 1 step to enter
Pt is independent, denies DME use for ambulating and daily functioning
No VN/PT/SNF hx
Denies financial insecurities
Address, point of contacts, and insurance verified
PCP: Dr. Nadege Dyson
Pharmacy: [facility] and [facility]. Per pt she uses both [facility] locations depending on the medication she needs. Pt says [facility] location sometimes has more options
Currently on IV abx as pt is unable to tolerate oral
Plan: Home; no anticipated needs
CM will cont to follow for potential d/c needs
[2024-05-20] MEDS: VITAMIN C 500 MG PO ×2 (13:08→20:47)
--- NOTE | 2024-05-20 13:46 | W.PN.UPDATE ---
Update Note
Progress Note Update
trailing levofloxacin and flagyl
[2024-05-20 15:00] VITALS: BP 112/72
[2024-05-20] MEDS: COLACE 100 MG PO (17:03)
[2024-05-20] MEDS: ATARAX 25 MG PO ×2 (17:03→21:43)
[2024-05-20] MEDS: PEPCID 10 MG PO (21:43)
[2024-05-20] MEDS: OXYCONTIN (CONTROLLED RELEASE) 10 MG PO (21:43)
[2024-05-20] MEDS: THERAGRAN 1 TABLET PO (21:44)
[2024-05-20] MEDS: MELATONIN 10 MG PO (21:45)
[2024-05-20 23:30] VITALS: BP 118/73
[2024-05-20] MEDS: NON-FORMULARY ITEM 2 UNIT PO (23:34)
[2024-05-21] MEDS: DILAUDID 1 MG IV ×2 (01:26→06:26)
[2024-05-21] MEDS: UNASYN IV ×2 (01:27→07:34)
[2024-05-21 04:40] VITALS: BP 118/73
[2024-05-21 06:18] LABS: Hematocrit 35.2 % (37.0-47.0); Hemoglobin 11.9 g/dL (12.0-16.0); Mean Corp Hgb Conc. 33.8 g/dL (33.0-37.0); Mean Corpuscular Hgb 29.3 pg (27.0-31.0); Mean Corpuscular Volume 86.7 fL (81.0-99.0); Platelet Count 237 10^3/uL (130-400); Red Blood Cell Count 4.06 10^6/uL (4.20-5.40); Red Cell Dist. Width 13.5 % (11.5-14.5)
[2024-05-21 06:46] LABS: ALT (SGPT) 17 U/L (0-35); AST (SGOT) 26 U/L (14-36); Albumin 3.7 g/dl (3.5-5.0); Alkaline Phosphatase 59 U/L (38-126); Blood Urea Nitrogen 8 mg/dl (7-17); Calcium 8.9 mg/dl (8.4-10.2); Carbon Dioxide 26 mmol/L (22-30); Chloride 105 mmol/L (98-107); Estimated Creatinine Clearance 103 ml/min; Glucose 84 mg/dl (70-99); Potassium 4.4 mmol/L (3.5-5.1); Sodium 143 mmol/L (135-145); Total Bilirubin 0.8 mg/dl (0.2-1.3); Total Protein 7.1 g/dl (6.3-8.2); eGFR > 60.00
[2024-05-21 07:20] VITALS: BP 93/54
[2024-05-21] MEDS: CYMBALTA DELAYED RELEASE 90 MG PO (07:34)
[2024-05-21] MEDS: VITAMIN C 500 MG PO (07:35)
[2024-05-21] MEDS: ATARAX 25 MG PO ×2 (07:35→12:23)
[2024-05-21] MEDS: NEURONTIN 300 MG PO ×2 (07:35→12:23)
[2024-05-21] MEDS: VISBIOME 2 CAP PO (07:35)
[2024-05-21] MEDS: ROXICODONE 10 MG PO ×2 (07:45→12:34)
[2024-05-21] MEDS: COLACE 100 MG PO (10:59)
[2024-05-21] MEDS: KLONOPIN 1 MG PO (10:59)
[2024-05-21] MEDS: AUGMENTIN 875 MG/125 MG 1 TABLET PO (12:23)
--- NOTE | 2024-05-21 12:24 | W.PN.HOSP.TC ---
Addendum entered and electronically signed by Jeb Tracy MD 05/21/24 16:10:
[id number]
Original Note:
Today's Communication/Plan
-
going back on home regimen
f/u with [facility]
Assessment / Plan
Assessment / Plan
29 F with crohns on remicaide (last dose May 08) presents following tooth extraction (infected tooth with perforation of root canal space) for IV abx per arrangement with her oral surgeon. She has been on augmentin and tolerated up to 5 days
before developement of GI symptoms but now needs to be on abx for another 7 days till follow up on May 24.
PLAN:
1. Tooth abscess - S/P extraction. No acute infectious process at this time. Needs IV abx because intolerant of oral.
- admit to med/surg
- Trialed back; requested to go back on Augmentin and if tolerating - she wants to go home with closer [facility]FS appt
- pain control per home regimen.
2. Pain management - patient w/ exacting pain regimen
- Cont home regimen
- should f/u with Pain regimen
3. Celiac
- gluten free diet
DVT PPX - SCDs
Code Status - Full Code
More than 30 minutes spent in discharge including
Final examination of the patient
Summarizing hospital stay
Instructions for continuing care to all relevant caregivers
Preparation of discharge records, prescriptions, and referral forms
Total time spent (36 in minutes):
Anticipated Discharge: Today
Subjective/Interval History
-
Date of Service: May 21, 2024
Desires to trial back on Augmentin and p.o. Dilaudid
Objective Data
-
Labs:
Laboratory Results
05/21/24
05:10
WBC 8.0
Hgb 11.9 L
Hct 35.2 L
Plt Count 237
Sodium 143
Potassium 4.4
Chloride 105
Carbon Dioxide 26
BUN 8
Creatinine 0.7
Glucose 84
Calcium 8.9
Total Bilirubin 0.8
AST 26
ALT 17
Alkaline Phosphatase 59
Vital Signs:
Vital Signs
Temp Pulse Resp BP Pulse Ox
98.3 F 80 16 93/54 97
05/21/24 07:20 05/21/24 07:20 05/21/24 07:20 05/21/24 07:20 05/21/24 07:20
I&O
05/20/24 05/21/24 05/22/24
06:59 06:59 06:59
Intake Total 1120 / 1120
Balance 1120 / 1120
Review of Systems
-
History Source: Patient
All other systems: Not reviewed unless documented
Data Reviewed
-
CT Scan: Image personally visualized and interpreted, Report Reviewed by me and Discussed with Physician
Labs: Labs Reviewed by me
Old Records: Reviewed
--- NOTE | 2024-05-21 12:32 | W.DS.TRANS ---
DC Summary - Medical Records Assistant
-
Discharge Instructions:
Discharge Diagnosis/Procedures abdominal pain
Diet Low Residue,Other diet
Additional Diets gluten free; cont diet as prior
Activity As tolerated
Blood Work cbc and cmp in 3-5 days with pcp
Instructions:
Stand-Alone Forms:
Changes to Home Medications: Yes
Discharge Medications:
DC Medications w/original date entered in [facility]
oxycodone 10 mg tablet 10 mg PO Q4HPRN PRN severe pain 02/12/23
acetaminophen 500 mg tablet (Tylenol Extra Strength) 1,000 mg PO Q6HPRN PRN mild pain 01/15/24
ascorbic acid (vitamin C) 500 mg tablet (Vitamin C) 500 mg PO BID Supplement 01/15/24
clonazepam 1 mg tablet 1 mg PO BID@1130,2300 Mental Health/Anxiety 01/15/24
duloxetine 30 mg capsule,delayed release (Cymbalta) 30 mg PO DAILY mental health 01/15/24
duloxetine 60 mg capsule,delayed release (Cymbalta) 60 mg PO DAILY mental health 01/15/24
famotidine 20 mg tablet (Pepcid) 10 mg PO HS Gastrointestinal Issue 01/15/24
fexofenadine 180 mg tablet 360 mg PO HS Allergies 01/15/24
gabapentin 300 mg capsule 300 mg PO QID Neurological Condition 01/15/24
hydroxyzine pamoate 25 mg capsule 25 mg PO QID Mental Health/Anxiety 01/15/24
infliximab 100 mg intravenous solution (Remicade) 7.5 mg IV Q6W Crohn's disease 01/15/24
melatonin 10 mg tablet 10 mg PO HS@2300 Sleep 01/15/24
oxycodone 10 mg tablet,crush resistant,extended release 12 hr (OxyContin) 10 mg PO HS@2300 chronic pain 01/15/24
vitamin A 3,000 mcg (10,000 unit) capsule 3,000 mcg PO HS Supplement 02/26/24
hydromorphone 4 mg tablet 4 mg PO Q4HPRN PRN severe breakthrough pain 05/09/24
therapeutic multivitamin 1 tab PO HS Supplement 05/09/24
Lactobac no.2-Bifidobac no.1-S. thermo 112.5 billion cell capsule (Visbiome) 2 cap PO DAILY #30 caps 05/14/24
docusate sodium 100 mg capsule (Colace) 100 mg PO DAILYPRN PRN constipation 05/20/24
amoxicillin 875 mg-potassium clavulanate 125 mg tablet 1 tab PO Q12 #0 tabs 05/21/24
Home Medication Changes
na
Pending Results: No
[2024-05-21] MEDS: DILAUDID 4 MG PO (15:13)
[2024-05-21 16:27] VITALS: BP 96/58
[2024-05-21 17:08] VITALS: BP 99/68
== END 2024-05-21 17:45 | disposition home or self-care (01) | DRG 158 ==
LOC: 2 NORTH 02:26
PROVIDERS: ADMITTING PHYSICIAN Internal Medicine; ATTENDING PHYSICIAN Internal Medicine; EMERGENCY PHYSICIAN Emergency Medicine
DX: K04.7 Periapical abscess without sinus (principal); K50.10 Crohn's disease of large intestine without complications; G89.29 Other chronic pain; R10.9 Unspecified abdominal pain; F41.9 Anxiety disorder, unspecified; F32.A Depression, unspecified; Z79.891 Long term (current) use of opiate analgesic; Z79.2 Long term (current) use of antibiotics; Z98.818 Other dental procedure status
CPT/HCPCS: 80048; 80053; 84703; 85025; 85027; 93005; 96361; 96365; 96375; 99284

== ENCOUNTER 2024-05-26 18:05 | Inpatient (IN) | payer OTHER, SELFPAY ==
[2024-05-26 12:24] VITALS: BP 111/76
--- NOTE | 2024-05-26 13:52 | ED.GENMED ---
History of Present Illness
<OSIEL Restrepo Last Filed: 05/26/24 22:19>
General
Chief Complaint: Oral/Mouth Problem
Source: patient
Exam Limitations: none
Time Seen by Provider: 05/26/24 13:38
Nursing documentation reviewed up to this point in time: agreed with
History of Present Illness
History of Present Illness:
29-year-old female with a past medical history of recurrent dental infections, Crohn's disease, presents emergency department today with concerns of an oral infection. Patient reports that patient had an abscess in her tooth last March and
reports ports that the tooth was removed 2 weeks ago. Patient has been on oral and IV antibiotics on and off for recurrent facial cellulitis. She has had CAT scans of her face as well which showed a small amount of periorbital soft tissue swelling
but otherwise no clear evidence of abscess, no evidence of subcutaneous edema. Patient denies any sore throat, difficulty swallowing, trouble breathing. Patient denies any chest pain or shortness of breath. She denies eye pain, eye redness,
visual loss, trismus, drooling. Patient states that she receives Remicade for Crohn's and is immunocompromise. Patient states that she also receives opioids and sees a pain management doctor for chronic pain.
Past History
<OSIEL Restrepo Last Filed: 05/26/24 22:19>
Past History
ED Past Medical History: Other (Crohn's disease, celiac, IBS, anxiety)
ED Past Surgical History: Orthopedic and Other (Bowel surgery)
Social History
Tobacco: Non-smoker
Alcohol: Occasional
Drug: None
Personal: Other (Engage)
Living: with family
Employment: Employed
Family History
Family History: Other (her dads mother had Juvenile RA, mother has palpitations)
Review of Systems
<OSIEL Restrepo Last Filed: 05/26/24 22:19>
Review of Systems
All Other Systems: ROS reviewed and negative except as documented in HPI and ROS
Phy Exam
<Alfreda Clemons PA-C - Last Filed: 05/26/24 22:19>
Physical Exam
Physical Exam:
General: Patient is well appearing and in no acute distress; non-toxic
Skin: Warm and dry, mild swelling and erythema noted to the left side of the face, no palpable crepitus
Head: Normocephalic, atraumatic
Eyes: Sclera non-icteric. EOMs intact. PERRLA.
Mouth: No pharyngeal erythema, no intraoral lesions
Cardiac: Regular rate and rhythm, no murmur
Peripheral Vascular: No lower extremity swelling or edema
Pulm: Normal respiratory effort, no wheezes, rales, rhonchi
Neuro: CN II-XII intact, no focal neurologic deficits.
Psychiatric: Appropriate mood and affect.
Course
<Alfreda Clemons PA-C - Last Filed: 05/26/24 22:19>
Orders/Labs/Results
Orders:
Orders
05/26/24 14:18
IV Insert/Care/Rem.- Treatment PRN
05/26/24 14:38
HYDROmorphone [Dilaudid] 1 mg IV NOW STA
05/26/24 Dinner
Regular
Regular diet: Gluten Free
05/26/24 15:15
Complete Blood Count/With Diff Urgent
05/26/24 16:08
Piperacillin/Tazo 3.375 Gram [Zosyn] 3.375 gram in 50 ml IV NOW
05/26/24 16:26
Comprehensive Metabolic Panel Urgent
05/26/24 16:29
Vancomycin [Vancocin] 1,500 mg 0.9% Sodium Chloride 500 ml [Nss] 500 ml IV NOW
05/26/24 17:49
Admit/Transfer Patient As Directed
Co-Sign Provider:
Level of Care: Inpatient admission
Assign to:: Medical/Surgical
Physician / Group: dyllan
Diagnosis: facial cellulitis
Reason for Hospitalization: facial cellulitis
Expected length of stay greater than two midnights?: Yes
ELOS- Estimated Length of Stay in days: 2
I certify the patient meets the requirements for IP care: Yes
Code Status As Directed
Resuscitation Status: Full Code
PRN Pain Medication Management As Directed
May give lesser potent ordered pain med per pt: Yes
preference::
Protocol:: Medication orders for pain may be administered in a
manner that supports deferring to patient preference
when the pt is:
- Requesting an ordered lesser potent pain medication.
Least to most potent pain medications are defined
as: acetaminophen < NSAID < tramadol < opioids
(morphine, oxycodone, hydromorphone).
- Requesting a lesser dose of the same medication IF
ORDERED.
- Requesting a less intrusive route of administration
if both routes are prescribed by the provider (PO <
IV).
05/26/24 19:34
Acetaminophen [Tylenol] 1,000 mg PO Q6HPRN PRN
HYDROmorphone [Dilaudid] 0.5 mg IV Q4HPRN PRN
Ondansetron Injectable [Zofran] 4 mg IV Q6HPRN PRN
Oxycodone [Roxicodone] 10 mg PO HSPRN PRN
VANCOMYCIN Pharmacy to Dose [VANCOCIN Pharmacy to Dose] 1 each Pharmacy To Prepare [Call Pharmacy To Prepare] 0 ml IV PER PROTOCOL
05/26/24 19:34
INFECTIOUS DISEASE CONSULT Routine
Consulting Provider: Marli Morse
Was physician already notified: Yes
Activity As Directed
Activity Level: As Tolerated
Vital Signs As Directed
Frequency: Per unit guidelines
DX Deep Vein Thrombosis Video Routine
05/26/24 20:00
Ascorbic Acid [Vitamin C] 500 mg PO BID
Heparin 5,000 units SC Q12
05/26/24 21:00
Oxycodone [Roxicodone] 10 mg PO QID@07,12,17,21
05/26/24 22:00
Famotidine [Pepcid] 10 mg PO HS
Gabapentin [Neurontin] 300 mg PO QID@,,18,22
HydrOXYZINE [Atarax] 25 mg PO QID@,,18,
Loratadine [Claritin] 10 mg PO HS
Multivitamin [Theragran] 1 tablet PO HS
Piperacillin/Tazo 3.375 Gram [Zosyn] 3.375 gram in 50 ml IV Q6H
05/26/24 23:00
Clonazepam [Klonopin] 1 mg PO BID@1130,2300
Melatonin 10 mg PO HS@2300
Oxycodone Controlled Release [Oxycontin (Controlled Release)] 10 mg PO HS@2300
05/27/24 06:00
Complete Blood Count/With Diff IN AM
Comprehensive Metabolic Panel IN AM
05/27/24 08:00
Docusate Sodium [Colace] 200 mg PO DAILY
Duloxetine Delayed Release [Cymbalta Delayed Release] 30 mg PO DAILY
Duloxetine Delayed Release [Cymbalta Delayed Release] 60 mg PO DAILY
Lactobac/Bifidobac [Visbiome] 2 cap PO DAILY
Abnormal Lab Results
05/26/24 05/26/24
15:15 16:26
RBC 4.18 L 10^6/uL
(4.20-5.40)
Hct 36.0 L %
(37.0-47.0)
MPV 11.3 H fL
(7.4-10.4)
Neutrophils % 41.0 L %
(42.2-75.2)
Eosinophils % 8.3 H %
(0-6)
BUN 19 H mg/dl
(7-17)
05/26/24 15:15
05/26/24 16:26
Vital Signs
Initial and Last Documented VS:
Initial Vital Signs
Temp Pulse Resp BP Pulse Ox
98.4 F 122 20 111/76 96
05/26/24 12:24 05/26/24 12:24 05/26/24 12:24 05/26/24 12:24 05/26/24 12:24
Last Documented Vital Signs
Temp Pulse Resp BP Pulse Ox
98.3 F 101 14 105/66 94
05/26/24 19:58 05/26/24 19:58 05/26/24 19:58 05/26/24 19:58 05/26/24 19:58
<Victoriano Herron, - Last Filed: 05/26/24 14:45>
Orders/Labs/Results
Orders:
Orders
05/26/24 14:18
IV Insert/Care/Rem.- Treatment PRN
05/26/24 14:38
HYDROmorphone [Dilaudid] 1 mg IV NOW STA
05/26/24 Dinner
Regular
Regular diet: Gluten Free
05/26/24 15:15
Complete Blood Count/With Diff Urgent
05/26/24 16:08
Piperacillin/Tazo 3.375 Gram [Zosyn] 3.375 gram in 50 ml IV NOW
05/26/24 16:26
Comprehensive Metabolic Panel Urgent
05/26/24 16:29
Vancomycin [Vancocin] 1,500 mg 0.9% Sodium Chloride 500 ml [Nss] 500 ml IV NOW
05/26/24 17:49
Admit/Transfer Patient As Directed
Co-Sign Provider:
Level of Care: Inpatient admission
Assign to:: Medical/Surgical
Physician / Group: dyllan
Diagnosis: facial cellulitis
Reason for Hospitalization: facial cellulitis
Expected length of stay greater than two midnights?: Yes
ELOS- Estimated Length of Stay in days: 2
I certify the patient meets the requirements for IP care: Yes
Code Status As Directed
Resuscitation Status: Full Code
PRN Pain Medication Management As Directed
May give lesser potent ordered pain med per pt: Yes
preference::
Protocol:: Medication orders for pain may be administered in a
manner that supports deferring to patient preference
when the pt is:
- Requesting an ordered lesser potent pain medication.
Least to most potent pain medications are defined
as: acetaminophen < NSAID < tramadol < opioids
(morphine, oxycodone, hydromorphone).
- Requesting a lesser dose of the same medication IF
ORDERED.
- Requesting a less intrusive route of administration
if both routes are prescribed by the provider (PO <
IV).
05/26/24 19:34
Acetaminophen [Tylenol] 1,000 mg PO Q6HPRN PRN
HYDROmorphone [Dilaudid] 0.5 mg IV Q4HPRN PRN
Ondansetron Injectable [Zofran] 4 mg IV Q6HPRN PRN
Oxycodone [Roxicodone] 10 mg PO HSPRN PRN
VANCOMYCIN Pharmacy to Dose [VANCOCIN Pharmacy to Dose] 1 each Pharmacy To Prepare [Call Pharmacy To Prepare] 0 ml IV PER PROTOCOL
05/26/24 19:34
INFECTIOUS DISEASE CONSULT Routine
Consulting Provider: Marli Morse
Was physician already notified: Yes
Activity As Directed
Activity Level: As Tolerated
Vital Signs As Directed
Frequency: Per unit guidelines
DX Deep Vein Thrombosis Video Routine
05/26/24 20:00
Ascorbic Acid [Vitamin C] 500 mg PO BID
Heparin 5,000 units SC Q12
05/26/24 21:00
Oxycodone [Roxicodone] 10 mg PO QID@07,12,17,21
05/26/24 22:00
Famotidine [Pepcid] 10 mg PO HS
Gabapentin [Neurontin] 300 mg PO QID@,,,
HydrOXYZINE [Atarax] 25 mg PO QID@,,,
Loratadine [Claritin] 10 mg PO HS
Multivitamin [Theragran] 1 tablet PO HS
Piperacillin/Tazo 3.375 Gram [Zosyn] 3.375 gram in 50 ml IV Q6H
05/26/24 23:00
Clonazepam [Klonopin] 1 mg PO BID@1130,2300
Melatonin 10 mg PO HS@2300
Oxycodone Controlled Release [Oxycontin (Controlled Release)] 10 mg PO HS@2300
05/27/24 06:00
Complete Blood Count/With Diff IN AM
Comprehensive Metabolic Panel IN AM
05/27/24 08:00
Docusate Sodium [Colace] 200 mg PO DAILY
Duloxetine Delayed Release [Cymbalta Delayed Release] 30 mg PO DAILY
Duloxetine Delayed Release [Cymbalta Delayed Release] 60 mg PO DAILY
Lactobac/Bifidobac [Visbiome] 2 cap PO DAILY
Abnormal Lab Results
05/26/24 05/26/24
15:15 16:26
RBC 4.18 L 10^6/uL
(4.20-5.40)
Hct 36.0 L %
(37.0-47.0)
MPV 11.3 H fL
(7.4-10.4)
Neutrophils % 41.0 L %
(42.2-75.2)
Eosinophils % 8.3 H %
(0-6)
BUN 19 H mg/dl
(7-17)
05/26/24 15:15
05/26/24 16:26
Vital Signs
Initial and Last Documented VS:
Initial Vital Signs
Temp Pulse Resp BP Pulse Ox
98.4 F 122 20 111/76 96
05/26/24 12:24 05/26/24 12:24 05/26/24 12:24 05/26/24 12:24 05/26/24 12:24
Last Documented Vital Signs
Temp Pulse Resp BP Pulse Ox
98.3 F 101 14 105/66 94
05/26/24 19:58 05/26/24 19:58 05/26/24 19:58 05/26/24 19:58 05/26/24 19:58
<Alfreda Clemons PA-C - Last Filed: 05/26/24 22:19>
MDM/Problems Addressed
Differential Diagnosis Includes:
Differentials include cellulitis, erysipelas, sinusitis
MDM/Problems Addressed:
29-year-old female sent to the emergency department by her oral surgeon for recurrent left-sided facial cellulitis following root canal. Patient has been in and out of the hospital and IV and oral antibiotics regarding this. Did speak to
infectious disease doctor on-call who recommends starting vancomycin and Zosyn considering patient has been on Unasyn in the past and still gets recurrence. This has been started, CBC and CMP unremarkable, patient referred for admission
<Alfreda Clemons PA-C - Last Filed: 05/26/24 22:19>
*Critical Care Note
Total Time (30-74mins, 75-104mins- exclusive of procedures): Not Applicable
ED Attending Note
<OSIEL Restrepo Last Filed: 05/26/24 22:19>
-
Portions of this chart may have been created with voice recognition software.� Occasional wrong word or��sound alike� substitutions may have occurred due to the inherent limitations of voice recognition software.
<Victoriano Herron, DO - Last Filed: 05/26/24 14:45>
ED Attending Note
Patient seen and examined by attending physician: Yes
I performed the substantive portion of visit, reviewed & personally made and approve the management plan that is documented in note by myself or JACE.: Yes
ED Attending Note:
Seen with PA examined independently 29-year-old female Crohn's chronic joint pains opioid dependent followed by pain management rheumatology GI and a rare disease specialist through [facility] presents at the advice of her oral surgeon for admission
for IV antibiotics
Discharge Plan
Departure
Patient Disposition: Admit
Date of Disposition: 05/26/24
Time of Disposition: 16:59
Admit to: Med/Surg
Presentation/result/management discussed w/ accepting MD/DO: Hospitalist
Condition: Fair
Discharge Problem:
Cellulitis of face, Immunocompromised
Interventions
Interventions:
*Risk Screen - Suicide Last Done: 05/26/24 12:24
*General Assessment Last Done: 05/26/24 12:24
*Neglect/Abuse Screening Last Done: 05/26/24 12:24
ED- Fall Risk Assessment Last Done: 05/26/24 18:18
*ED COVID-19 Vaccine History Last Done: 05/26/24 20:57
*Nursing Disposition Last Done: 05/26/24 19:36
Discharge Date and Time
Discharge Date/Time: 05/26/24 19:36
[2024-05-26] MEDS: DILAUDID 1 MG IV (15:07)
[2024-05-26 15:26] LABS: % Basophils 0.4 % (0-2); % Eosinophils 8.3 % (0-6); % Immature Granulocytes 0.3 % (0-0.5); % Lymphocytes 42.4 % (20.5-51.1); % Monocytes 7.6 % (1.7-9.3); Absolute Eosinophils 0.7 10^3/uL (0-0.7); Absolute Lymphocytes 3.4 10^3/uL (1.2-3.4); Absolute Monocytes 0.6 10^3/uL (0.1-0.6); Absolute Neutrophils 3.3 10^3/uL (1.4-6.5); Hemoglobin 12.1 g/dL (12.0-16.0); Mean Corp Hgb Conc. 33.6 g/dL (33.0-37.0); Mean Corpuscular Hgb 28.9 pg (27.0-31.0); Mean Corpuscular Volume 86.1 fL (81.0-99.0); Mean Platelet Volume 11.3 fL (7.4-10.4); Nucleated Red Blood Cells % 0 %; Platelet Count 195 10^3/uL (130-400); Red Blood Cell Count 4.18 10^6/uL (4.20-5.40); Red Cell Dist. Width 13.4 % (11.5-14.5)
[2024-05-26 16:24] VITALS: BMI 25.9
[2024-05-26 16:30] VITALS: BP 105/68
[2024-05-26] MEDS: ZOSYN 50 IV ×2 (16:32→22:11)
[2024-05-26 16:46] LABS: ALT (SGPT) 17 U/L (0-35); AST (SGOT) 25 U/L (14-36); Albumin 3.9 g/dl (3.5-5.0); Alkaline Phosphatase 90 U/L (38-126); Blood Urea Nitrogen 19 mg/dl (7-17); Calcium 8.7 mg/dl (8.4-10.2); Carbon Dioxide 27 mmol/L (22-30); Chloride 104 mmol/L (98-107); Estimated Creatinine Clearance 103 ml/min; Glucose 92 mg/dl (70-99); Potassium 4.1 mmol/L (3.5-5.1); Sodium 140 mmol/L (135-145); Total Bilirubin 0.3 mg/dl (0.2-1.3); Total Protein 7.2 g/dl (6.3-8.2); eGFR > 60.00
[2024-05-26] MEDS: VANCOCIN 530 MG IV (17:39)
--- NOTE | 2024-05-26 17:55 | HPS.HSE ---
Family Physician
-
Family Physician: Nadege Dyson
Chief Complaint
-
facial swelling
History of Present Illness
29-year-old female past medical history of recurrent dental infections, Crohn's disease, celiac disease, IBS, chronic pain, anxiety/depression, presents with worsening redness and pain on the left side of her face once again. She denies any fevers
or chills. She sometimes has double vision but denies any pain with eye movement. Denies any nausea vomiting. Denies abdominal pain.
Patient was recently admitted twice first from 05/09 to 05/15 for left facial swelling. She was found to have a left tooth infection and found to have abscess and had partial root canal. She was treated with oral antibiotics with worsening
symptoms. She was admitted and treated with IV antibiotics. She had facial CT scan which was unremarkable. She was seen by infectious disease and eventually discharged on oral antibiotic.
She eventually followed up with her [employer] and was found to have another infection on her right tooth however this was very mild.
She recently saw her [facility] [employer] this past and had a partial tooth resection. She again presents with worsening swelling and pain on her left face.
Her mother is currently being admitted for C. difficile and they shared a bathroom.
She denies smoking or alcohol use.
Medical History
Past Medical History
Past Medical History: Reports Other (recurrent dental infections, Crohn's disease, celiac disease, IBS, chronic pain, anxiety/depression, )
Past Surgical History: Reports Other (Dental )
Social History
Tobacco: Non-smoker
Alcohol: None
Drug: None
Family History
Family History: Not pertinent
Allergies / Home Medications
Allergies reflects when Allergies were last updated in [facility].
Home Medications with original date entered in [facility]
Allergy/Medication List:
Allergies
Allergy/AdvReac Type Severity Reaction Status Date / Time
egg Allergy Anaphylaxis Verified 05/26/24 12:28
gluten Allergy stomach Verified 05/26/24 12:28
pain
prochlorperazine Allergy Akathesia Verified 05/26/24 12:28
shrimp Allergy Unknown Verified 05/26/24 12:28
tree nut Allergy Hives Verified 05/26/24 12:28
Home Medications
oxycodone 10 mg tablet 10 mg PO QID@07,12,17,21 02/12/23
acetaminophen 500 mg tablet (Tylenol Extra Strength) 1,000 mg PO Q6HPRN PRN mild pain 01/15/24
ascorbic acid (vitamin C) 500 mg tablet (Vitamin C) 500 mg PO BID Supplement 01/15/24
clonazepam 1 mg tablet 1 mg PO BID@1130,2300 Mental Health/Anxiety 01/15/24
duloxetine 30 mg capsule,delayed release (Cymbalta) 30 mg PO DAILY mental health 01/15/24
duloxetine 60 mg capsule,delayed release (Cymbalta) 60 mg PO DAILY mental health 01/15/24
famotidine 20 mg tablet (Pepcid) 10 mg PO HS Gastrointestinal Issue 01/15/24
fexofenadine 180 mg tablet 360 mg PO HS Allergies 01/15/24
gabapentin 300 mg capsule 300 mg PO QID@08,,18,22 Neurological Condition 01/15/24
hydroxyzine pamoate 25 mg capsule 25 mg PO QID@08,,18,22 Mental Health/Anxiety 01/15/24
infliximab 100 mg intravenous solution (Remicade) 7.5 mg IV Q6W Crohn's disease 01/15/24
melatonin 10 mg tablet 10 mg PO HS@2300 Sleep 01/15/24
oxycodone 10 mg tablet,crush resistant,extended release 12 hr (OxyContin) 10 mg PO HS@2300 chronic pain 01/15/24
vitamin A 3,000 mcg (10,000 unit) capsule 3,000 mcg PO HS Supplement 02/26/24
hydromorphone 4 mg tablet 4 mg PO Q4HPRN PRN severe breakthrough pain 05/09/24
therapeutic multivitamin 1 tab PO HS Supplement 05/09/24
Lactobac no.2-Bifidobac no.1-S. thermo 112.5 billion cell capsule (Visbiome) 2 cap PO DAILY #30 caps 05/14/24
docusate sodium 100 mg capsule (Colace) 200 mg PO DAILY 05/20/24
oxycodone 10 mg tablet 10 mg PO HSPRN PRN severe pain 05/26/24
Review of Systems
-
History Source: Patient
A 12 point ROS was completed and negative except as noted: Yes
Constitutional: Reports No Symptoms
EENT: Reports No Symptoms
Respiratory: Reports No Symptoms
Cardiac: Reports No Symptoms
Abdomen/GI: Reports No Symptoms
: Reports No Symptoms
Musculoskeletal: Reports No Symptoms
Skin: Reports See HPI and Other
Neurological: Reports No Symptoms
Endocrine: Reports No Symptoms
Hematologic/Lymphatic: Reports No Symptoms
Psych: Reports No Symptoms
Physical Exam
Vital Signs
Vital Signs
Temp Pulse Resp BP Pulse Ox
98.4 F 122 20 111/76 96
05/26/24 12:24 05/26/24 12:24 05/26/24 12:24 05/26/24 12:24 05/26/24 12:24
Physical Exam
General: Well Developed, Well Nourished and No Apparent Distress
HEENT: NormoCephalic, Moist mucous membranes and Atraumatic
Respiratory: Clear
Cardiac: S1/S2 and Regular Rhythm; No Murmur or Rub
GI: Soft, Non Tender, Non Distended and Normal Bowel Sounds; No Organomegaly
Rectal: Deferred by Provider
Musculoskeletal: No Clubbing, No Cyanosis and No Edema
Skin: Other (left facial swelling and erythema ); No Rash
Neuro: Nonfocal/grossly intact
Laboratory Results
-
05/26/24 15:15
05/26/24 16:26
Laboratory Results
Total Bilirubin 0.3 mg/dl (0.2-1.3) 05/26/24 16:26
AST 25 U/L (14-36) 05/26/24 16:26
ALT 17 U/L (0-35) 05/26/24 16:26
Alkaline Phosphatase 90 U/L (38-126) 05/26/24 16:26
Data Reviewed
-
Lab Data: Labs Reviewed by me
Old Records: Reviewed
Impression/Plan
-
IMPRESSION:
PLAN:
# Recurrent left facial cellulitis secondary to dental infection
# History of tooth abscess status post root canal, with recent tooth resection
-Vancomycin and Zosyn
-ID consulted
-Continue home oxycodone dosage
-IV Dilaudid 0.5 or 1 mg as needed for breakthrough pain
-Monitor for diarrhea and C. difficile since mother is being admitted for C. difficile at this time
Crohn's disease
-Controlled at this time
-On Remicade
Celiac disease
IBS
Anxiety
-Continue clonazepam
-Continue duloxetine
Chronic pain
-Continue oxycodone, Dilaudid, gabapentin
Full code
DVT prophylaxis�heparin
Gluten-free regular diet
[2024-05-26 18:33] VITALS: BP 97/58
[2024-05-26 19:31] VITALS: BMI 25.5
[2024-05-26 19:58] VITALS: BP 105/66
--- NOTE | 2024-05-26 20:10 | PHA.VAN.IN ---
Assessment
- Assessment
Renal Function: Appears similar to baseline (05/21/24 SCR = 0.7)
Concomitant Antimicrobials: ZOSYN
- Previous Dosing Experience
Previous Regimen: 1GM IV Q12H
Date of Regimen: 05/10/24
Provided Trough of: 14.3 PREDICTED
Provided AUC of: 550 PREDICTED
Patient's SCR is: Similar to previous dosing experience (05/10/24 SCR = 0.8)
Patient's weight is: Similar to previous dosing experience (05/10/24 WT = 68.3 KG)
AUC Dosing Plan
- Dosing Variables
Dosing Weight (kg): 67.4
Dosing CrCl (ml/min): 103
Vd coefficient (L/kg): 0.7
- Empiric Dosing
Initial / Loading Dose: 1500MG
Maintenance Regimen: 1GM IV Q12H
Estimated AUC (mcg*h/mL): 493
Estimated Peak (mcg*h/mL): 32.1
Estimated Trough (mcg/ml): 11.9
Estimated Half Life (H): 7.7
Pharmacokinetics Vancomycin I
- -
Patient Age: 29
Patient Sex: Female
Vancomycin Day #: 1
Indication: Skin And Soft Tissue (DENTAL ABSCESS)
Requesting Provider: VERA
Height / Weight:
Height 5 ft 4 in
Actual Weight 67.387 kg
Pertinent Past Medical History: RECENT ADMISSION FOR SAME
- Vital Signs / Lab Results
Temp Pulse Resp BP Pulse Ox
98.3 F 101 14 105/66 94
05/26/24 19:58 05/26/24 19:58 05/26/24 19:58 05/26/24 19:58 05/26/24 19:58
Lab Results - Hematology
05/26/24
15:15
WBC 8.0
Lab Results - Chemistry
05/26/24 05/26/24
15:15 16:26
BUN Cancelled 19 H
Creatinine Cancelled 0.7
Estimated Creat Clear Cancelled 103
Albumin Cancelled 3.9
[2024-05-26] MEDS: DILAUDID 0.5 MG IV (20:37)
[2024-05-26] MEDS: VITAMIN C 500 MG PO (20:40)
[2024-05-26] MEDS: HEPARIN 5000 UNITS SC (20:44)
--- NOTE | 2024-05-26 20:49 | TRANSFER ---
Pt admitted to the unit from ED. Pt ambulated self to bed from stretcher. AAXO3. Pt reported 8/10 pain of joints and left upper cheek. Pain medication administered once verified. Pt able to make needs known. Pt's significant other at bedside. Two
home medications send down to pharmacy for labels and barcodes. Pt oriented to room with call kimbrough in reach. Plan of care ongoing.
Pain reassessed. Pain level 3/10. Plan of care ongoing.
[2024-05-26] MEDS: ROXICODONE 10 MG PO (22:08)
[2024-05-26] MEDS: PEPCID 10 MG PO (22:09)
[2024-05-26] MEDS: ATARAX 25 MG PO (22:10)
[2024-05-26] MEDS: NEURONTIN 300 MG PO (22:10)
[2024-05-26] MEDS: MELATONIN 10 MG PO (23:29)
[2024-05-26] MEDS: KLONOPIN 1 MG PO (23:30)
[2024-05-26] MEDS: OXYCONTIN (CONTROLLED RELEASE) 10 MG PO (23:30)
[2024-05-26 23:43] VITALS: BP 108/73
[2024-05-27] MEDS: NON-FORMULARY ITEM 1 UNIT PO ×4 (00:12→23:15)
[2024-05-27] MEDS: DILAUDID 0.5 MG IV ×3 (00:41→10:05)
[2024-05-27] MEDS: VANCOCIN 200 IV (05:06)
--- NOTE | 2024-05-27 05:31 | PTCARENOTE ---
Addendum entered by Aileen Aguirre RN 05/27/24 07:26:
Per SHAQUILLE López, scheduled 04:00 Zosyn held. Plan of care ongoing.
Original Note:
~00:15 Pt reported 9/10 pain of bilateral 'wrists and ankle joints.' Pt reports hx of chronic joint pain. Pt reports the pain is 'as if I didn't take my pain meds for 12+ hours.' Warm wash clothes in ice pack bag were given to pt till next dose of
PRN pain medication were due. PRN pain medication administered.
Pt asked is 'joint pain a possible side effect of the Zosyn antibiotic.' This writer producer called pharmacy to ask about joint pain as a possible side effect. Pharmacist stated 'yes, it's very possible.' Notified SHAQUILLE López. No new orders at this
time. Pt sleeping with no signs of distress. Plan of care ongoing.
~04:05 TT SHAQUILLE López. This writer producer asked if scheduled 04:00 Zosyn should be administered. Per SHAQUILLE López, 'hold off.' No new orders at this time. Plan of care ongoing.
[2024-05-27] MEDS: ROXICODONE 10 MG PO ×4 (06:59→20:42)
[2024-05-27 07:00] VITALS: BP 97/62
[2024-05-27] MEDS: ZOSYN IV (07:25)
[2024-05-27] MEDS: COLACE 200 MG PO (07:32)
[2024-05-27] MEDS: CYMBALTA DELAYED RELEASE 30 MG PO (07:32)
[2024-05-27] MEDS: VITAMIN C 500 MG PO ×2 (07:32→20:42)
[2024-05-27] MEDS: VISBIOME 2 CAP PO (07:32)
[2024-05-27] MEDS: CYMBALTA DELAYED RELEASE 60 MG PO (07:32)
[2024-05-27] MEDS: HEPARIN 5000 UNITS SC ×2 (07:33→20:43)
[2024-05-27] MEDS: ATARAX 25 MG PO ×4 (07:34→23:13)
[2024-05-27] MEDS: NEURONTIN 300 MG PO ×4 (07:34→23:11)
[2024-05-27 07:40] LABS: % Basophils 0.4 % (0-2); % Eosinophils 7.5 % (0-6); % Immature Granulocytes 0.3 % (0-0.5); % Lymphocytes 47.9 % (20.5-51.1); % Monocytes 8.2 % (1.7-9.3); % Neutrophils 35.7 % (42.2-75.2); Absolute Eosinophils 0.8 10^3/uL (0-0.7); Absolute Monocytes 0.9 10^3/uL (0.1-0.6); Absolute Neutrophils 3.7 10^3/uL (1.4-6.5); Hematocrit 34.3 % (37.0-47.0); Hemoglobin 12.1 g/dL (12.0-16.0); Mean Corp Hgb Conc. 35.3 g/dL (33.0-37.0); Mean Corpuscular Hgb 29.7 pg (27.0-31.0); Mean Corpuscular Volume 84.3 fL (81.0-99.0); Mean Platelet Volume 11.1 fL (7.4-10.4); Nucleated Red Blood Cells % 0 %; Platelet Count 195 10^3/uL (130-400); Red Blood Cell Count 4.07 10^6/uL (4.20-5.40); Red Cell Dist. Width 13.4 % (11.5-14.5); White Blood Cell Count 10.4 10^3/uL (4.8-10.8)
--- NOTE | 2024-05-27 07:52 | PHA.VAN.FU ---
Vancomycin Assessment / Plan
- Assessment
Renal Function: Stable
WBC's are: WNL
In the past 24 hrs, patient has been: Afebrile
Concomitant Antimicrobials: zosyn
- Dosing Plan
Continue: 1000mg q12h
- Monitoring Plan
No level(s) ordered at this time: consider in next day or two
- Follow Up
Pharmacy will continue to follow.
Vancomycin Follow UP
- -
Patient Age: 29
Patient Sex: Female
Vancomycin Day #: 2
Indication: Skin And Soft Tissue (DENTAL ABSCESS)
Requesting Provider: VERA
Height / Weight:
Height 5 ft 4 in
Actual Weight 67.387 kg
Pertinent Past Medical History: RECENT ADMISSION FOR SAME
- Vital Signs / Lab Results
Temp Pulse Resp BP Pulse Ox
98.6 F 103 16 108/73 98
05/26/24 23:43 05/26/24 23:43 05/26/24 23:43 05/26/24 23:43 05/26/24 23:43
Lab Results - Hematology
05/26/24 05/27/24
15:15 06:59
WBC 8.0 10.4
Lab Results - Chemistry
05/26/24 05/26/24
15:15 16:26
BUN Cancelled 19 H
Creatinine Cancelled 0.7
Estimated Creat Clear Cancelled 103
Albumin Cancelled 3.9
[2024-05-27 08:26] LABS: ALT (SGPT) 17 U/L (0-35); AST (SGOT) 26 U/L (14-36); Alkaline Phosphatase 78 U/L (38-126); Blood Urea Nitrogen 17 mg/dl (7-17); Calcium 8.8 mg/dl (8.4-10.2); Carbon Dioxide 28 mmol/L (22-30); Chloride 104 mmol/L (98-107); Estimated Creatinine Clearance 90 ml/min; Glucose 84 mg/dl (70-99); Potassium 4.1 mmol/L (3.5-5.1); Sodium 142 mmol/L (135-145); Total Bilirubin 0.5 mg/dl (0.2-1.3); Total Protein 7.3 g/dl (6.3-8.2); eGFR > 60.00
[2024-05-27] MEDS: FIRVANQ 125 MG PO (08:50)
--- NOTE | 2024-05-27 09:04 | W.PN.HOSP.TC ---
Today's Communication/Plan
-
abx as per ID
pain control
check Cdiff if appropriate stool sample becomes available.
Assessment / Plan
Assessment / Plan
Physical Exam
General: No acute distress, appears relatively comfortable at this time.
HEENT: NormoCephalic, Moist mucous membranes and Atraumatic, left facial swelling tenderness
Respiratory: Clear
Cardiac: S1/S2 and Regular Rhythm; No Murmur or Rub
GI: Soft, Non Tender, bowel sounds present
Musculoskeletal: No Clubbing, No Cyanosis and No Edema
Neuro: AOx3
Psych: Calm
Current presentation Hospital day 1
Prior Presentation Hospitalization 05/09-05/14
# Recurrent left facial cellulitis secondary to dental infection
# History of tooth abscess status post root canal, with recent tooth resection
-empiric Vancomycin and Zosyn discontinued
-ID consult appreciated PO Levo 750 mg daily and Flagyll 500 mg BID to be taken with food
-Continue home pain control regimen with addition IV pain meds as follows
-IV Dilaudid 0.5 mg as needed moderate pain, 1mg for severe breakthrough pain (ok to be given no soon than 30 min of oral pain meds)
-magic mouthwash, Tylenol scheduled 1000 mg Q6
-Monitor for diarrhea and C. difficile since mother is admitted for C. difficile at this time (check for cdiff if appropriate stool sample is available)
Crohn's disease
-Controlled at this time
-On Remicade next dose due 06/20
-GI updated with regards to recent events (dental procedures and associate recurrent infections, cellulitis, prolonged abx, cdiff exposure) her outpt GI Dr Garcia to follow up
Celiac disease
IBS
Anxiety
-Continue clonazepam
-Continue duloxetine
Chronic pain
-Continue oxycodone, Dilaudid, gabapentin
Full code
DVT prophylaxis�heparin
Gluten-free regular diet
Discussed with patient and patient's elmer Mishra
I spent a total of 50 minutes with the patient or on the floor. More than 50% of this time involved counseling and coordination of care.
Anticipated Discharge: 24 - 48 hours
Subjective/Interval History
-
Date of Service: May 27, 2024
Left sided facial swelling tenderness. Had severe arthritic pain reaction to zosyn over night, since discontinued. Denies diarrhea. Reported abd discomfort following prophylactic vancomycin this morning.
Objective Data
-
Labs:
Laboratory Results
05/27/24
06:59
WBC 10.4
Hgb 12.1
Hct 34.3 L
Plt Count 195
Sodium 142
Potassium 4.1
Chloride 104
Carbon Dioxide 28
BUN 17
Creatinine 0.8
Glucose 84
Calcium 8.8
Total Bilirubin 0.5
AST 26
ALT 17
Alkaline Phosphatase 78
Vital Signs:
Vital Signs
Temp Pulse Resp BP Pulse Ox
98.9 F 87 16 97/62 98
05/27/24 07:00 05/27/24 07:00 05/27/24 07:00 05/27/24 07:00 05/27/24 07:00
I&O
05/26/24 05/27/24 05/28/24
06:59 06:59 06:59
Intake Total 1020 / 1020
Balance 1020 / 1020
[2024-05-27] MEDS: KLONOPIN 1 MG PO ×2 (11:54→23:11)
[2024-05-27] MEDS: TYLENOL 1000 MG PO ×3 (11:54→23:11)
[2024-05-27] MEDS: CLEOCIN 50 IV (11:55)
[2024-05-27] MEDS: MAGIC OR MIRACLE MOUTHWASH 10 ML PO ×3 (12:03→23:14)
--- NOTE | 2024-05-27 13:26 | CM ---
Patient seen at bedside.
Dx: facial cellulitis
IA completed.
Lives at home with parents in a 2 story home, 2 steps to enter,flight to second floor
PLOF: Independent
Denies DME
no needs anticipated
PCP: Nadege Dyson
Pharmacy: [facility]
Plan: Home, no needs anticipated
--- NOTE | 2024-05-27 13:28 | CON.ID ---
Consultation
-
Date/Time Consultation Requested: 05/26/24 19:34
Date/Time Consultation Performed: 05/26/24 13:28
Requesting Provider: Dr Fisher
Performing Provider: Dr Morse
Reason for Consultation: odontogenic infection
Chief Complaint / Past History
Chief Complaint
facial swelling
History of Present Illness
Ms Olivia is a 29 year old female with Crohns disease on remicaide q6 weeks, celiac disease, IBS who represented here 05/26 for recurrent L sided facial swelling. She reports some double vision but no pain with ocular motion. Reports symptoms
first began last March with dental abscess of the L maxillary canine after a veneer came off. Prescribed amoxicillin 500 mg PO q6 hr, subsequently with severe tooth pain, swelling; saw her pediatric sports medicine specialist who did an Xray showing a large abscess.
Had partial root canal with antibiotic instillation and continue amoxicillin. That evening with severe pain and worsening facial swelling. Presented piedad 04/[address] showed left facial swelling without abscess. Amoxcillin switched to clindamycin
300 mg PO q6hrs. Discharged home, pain persisted and presented here and was discharged on aumgentin 05/02. She had her remicaide dose 05/08/24 (late); same day was reassessed with her dentisit had another root canal on the contralateral side the
right side - felt there was no infection in the right side at that time. She next day she noted new swelling on the Left medial eye and she presented here. Started on vancomycin and unasyn. She was seen by ID 04/29/24 for L facial swelling with
mild, intermittent double vision, vancomycin stopped and unasyn continued; she completed about a 10 day course of augmentin. She followed up with Dr Cabrales and was told she had a mild infection of the left canine; she underwent a partial
resection and bone grafting on 05/17. She is now POD 9. She has continued on augmentin. Now reporting worsening swelling and pain of the L face and represented here. No fevers or chills. Still having intermittent mild double vision; no pain
with ocular motion. No nausea or vomiting.
Of note mother (household contact) currently hospitalized here with C difficile - first occurrence.
Since arrival here she has been afebrile, bp stable, wbc 8 on arrival and 10.4 today, hgb 12.1, plt 195, no L shift, AEC 0.8, cr 0.8, na 142, t bili 0.5, ast 26, alt 17, alk phos, hcg 05/20 negative, 05/[address] with IV contrast: small
bilateral frontal/periorbital soft tisssue swelling, most likely sequlae of recent root canal with air and fluid adjacent to right mandible, mrsa screen 04/30 negative, QTc 452
Past History
Additional Past Medical History:
as per hpi
Additional Past Surgical History:
as per hpi
Allergy History:
egg Allergy (Verified 05/26/24 12:28)
Anaphylaxis
gluten Allergy (Verified 05/26/24 12:28)
stomach pain
prochlorperazine Allergy (Verified 05/26/24 12:28)
Akathesia
shrimp Allergy (Verified 05/26/24 12:28)
Unknown
tree nut Allergy (Verified 05/26/24 12:28)
Hives
Medications Reviewed: Yes
Review of Systems
Vital Signs
Temp Pulse Resp BP Pulse Ox
98.9 F 87 16 97/62 98
05/27/24 07:00 05/27/24 07:00 05/27/24 07:00 05/27/24 07:00 05/27/24 07:00
Physical Exam
Physical Exam
Constitutional: No Acute Distress
Head: Other (very subtle facial swelling along the left nasolabial fold - mild tenderness with palpation)
Cardiovascular: Regular Rate and S1/S2; Negative Murmur or Rub
Pulmonary: Clear and Symmetric; Negative Wheezes, Rales or Rhonchi
Gastrointestinal: Soft, Non Tender, Non Distended and Normal Bowel Sounds
Skin: Warm and Dry; Negative Rash or Jaundice
Neurological: Awake
Lab / Diagnostic Study Results
05/27/24 06:59
05/27/24 06:59
Abs Immat Gran (auto) 0.0 10^3/uL (0-0.05) 05/27/24 06:59
Absolute Neuts (auto) 3.7 10^3/uL (1.4-6.5) 05/27/24 06:59
Absolute Lymphs (auto) 5.0 10^3/uL (1.2-3.4) H 05/27/24 06:59
Absolute Monos (auto) 0.9 10^3/uL (0.1-0.6) H 05/27/24 06:59
Absolute Basos (auto) 0.0 10^3/uL (0-0.2) 05/27/24 06:59
Immature Gran % 0.3 % (0-0.5) 05/27/24 06:59
Neutrophils % 35.7 % (42.2-75.2) L 05/27/24 06:59
Lymphocytes % 47.9 % (20.5-51.1) 05/27/24 06:59
Monocytes % 8.2 % (1.7-9.3) 05/27/24 06:59
Eosinophils % 7.5 % (0-6) H 05/27/24 06:59
Basophils % 0.4 % (0-2) 05/27/24 06:59
Assessment / Plan
Odontogenic Infection
Immunosuppression - Remicaide for Crohns Disease
Crohns Disease
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
- very subtle facial swelling noted, tenderness with facial palpation
- household contact with active C difficile infection - would avoid clindamycin - stopped
- screen for MRSA colonization
- start levofloxacin 750 mg PO qday /metronidazole 500 mg PO BID (take with food)
- recheck QTc in the AM, was 450, suspect
- hold oral vancomycin for the moment - prefer to see that patient is tolerating above regimen given her stated difficulties with drug tolerance
- she is not actually known to be colonized with C difficile
- counseled patient she has had multiple drug changes today and they will still be in her systme at least another 24 hours, if she has issues with tolerance today would not hesitate to manage any symptoms and continue to observe
- encourage probiotic and fiber foods as tolerated; oral probiotic here
- avoid PPIs
- family have cleaned household surfaces with bleach solution
follow clinically
[2024-05-27] MEDS: DILAUDID 1 MG IV ×3 (14:51→23:17)
[2024-05-27 15:00] VITALS: BP 103/68
[2024-05-27] MEDS: LEVAQUIN 750 MG PO (17:00)
[2024-05-27] MEDS: MELATONIN 10 MG PO (23:11)
[2024-05-27] MEDS: PEPCID 10 MG PO (23:12)
[2024-05-27] MEDS: FLAGYL 500 MG PO (23:13)
[2024-05-27] MEDS: OXYCONTIN (CONTROLLED RELEASE) 10 MG PO (23:14)
[2024-05-27 23:30] VITALS: BP 99/64
[2024-05-28] MEDS: DILAUDID 1 MG IV ×5 (03:22→23:42)
[2024-05-28] MEDS: ROXICODONE 10 MG PO ×4 (06:29→20:55)
[2024-05-28] MEDS: TYLENOL 1000 MG PO ×4 (06:29→22:54)
[2024-05-28 07:41] LABS: Hematocrit 32.7 % (37.0-47.0); Hemoglobin 11.4 g/dL (12.0-16.0); Mean Corp Hgb Conc. 34.9 g/dL (33.0-37.0); Mean Corpuscular Hgb 29.6 pg (27.0-31.0); Mean Corpuscular Volume 84.9 fL (81.0-99.0); Platelet Count 172 10^3/uL (130-400); Red Blood Cell Count 3.85 10^6/uL (4.20-5.40); Red Cell Dist. Width 13.2 % (11.5-14.5); White Blood Cell Count 7.3 10^3/uL (4.8-10.8)
--- NOTE | 2024-05-28 07:45 | W.PN.HOSP.TC ---
Today's Communication/Plan
-
cont oral abx as per ID
pain control
possible discharge tomorrow if remains stable
Assessment / Plan
Assessment / Plan
Physical Exam
General: No acute distress, appears relatively comfortable at this time.
HEENT: NormoCephalic, Moist mucous membranes and Atraumatic, left facial swelling tenderness
Respiratory: Clear
Cardiac: S1/S2 and Regular Rhythm; No Murmur or Rub
GI: Soft, Non Tender, bowel sounds present
Musculoskeletal: No Clubbing, No Cyanosis and No Edema
Neuro: AOx3
Psych: Calm
Presentation Hospital day 1
Prior Presentation Hospitalization 05/09-05/14
# Recurrent left facial cellulitis secondary to dental infection
# History of tooth abscess status post root canal, with recent tooth resection
-empiric Vancomycin and Zosyn discontinued
-ID consult appreciated PO Levo 750 mg daily and Flagyll 500 mg BID to be taken with food
-Continue home pain control regimen with addition IV pain meds as follows
-IV Dilaudid 0.5 mg as needed moderate pain, 1mg for severe breakthrough pain (ok to be given no sooner than 30 min of oral pain meds)
-magic mouthwash, Tylenol scheduled 1000 mg Q6
-Monitor for diarrhea and C. difficile since mother is admitted for C. difficile at this time
-No need for Cdiff precautions at this time.
Crohn's disease
-Controlled
-On Remicade next dose due 06/20
-GI updated with regards to recent events (dental procedures and associate recurrent infections, cellulitis, prolonged abx, cdiff exposure) her outpt GI Dr Garcia to follow up
Celiac disease
IBS
Anxiety
-Continue clonazepam
-Continue duloxetine
Chronic pain
-Continue oxycodone, Dilaudid, gabapentin
Full code
DVT prophylaxis�heparin
Gluten-free regular diet
Discussed with patient and patient's elmer Mishra
I spent a total of 40 minutes with the patient or on the floor. More than 50% of this time involved counseling and coordination of care.
Anticipated Discharge: Within 24 hours
Subjective/Interval History
-
Date of Service: May 28, 2024
no acute distress, appears relatively comfortably. Notes some abd discomfort with oral abx but seems tolerable at this time. Left facial swelling/tenderness remains present though stable.
Objective Data
-
Labs:
Laboratory Results
05/28/24
06:59
WBC 7.3
Hgb 11.4 L
Hct 32.7 L
Plt Count 172
Sodium Pending
Potassium Pending
Chloride Pending
Carbon Dioxide Pending
BUN Pending
Creatinine Pending
Glucose Pending
Calcium Pending
Vital Signs:
Vital Signs
Temp Pulse Resp BP Pulse Ox
98.5 F 86 14 99/64 97
05/27/24 23:30 05/27/24 23:30 05/27/24 23:30 05/27/24 23:30 05/27/24 23:30
I&O
05/27/24 05/28/24 05/29/24
06:59 06:59 06:59
Intake Total 1020 / 1020 480 / 480
Balance 1020 / 1020 480 / 480
[2024-05-28] MEDS: MAGIC OR MIRACLE MOUTHWASH 10 ML PO ×4 (07:55→22:02)
[2024-05-28] MEDS: VISBIOME 2 CAP PO (07:55)
[2024-05-28] MEDS: CYMBALTA DELAYED RELEASE 60 MG PO (07:55)
[2024-05-28] MEDS: NEURONTIN 300 MG PO ×4 (07:56→22:00)
[2024-05-28] MEDS: ATARAX 25 MG PO ×4 (07:56→22:00)
[2024-05-28] MEDS: CYMBALTA DELAYED RELEASE 30 MG PO (07:56)
[2024-05-28] MEDS: COLACE 200 MG PO (07:57)
[2024-05-28] MEDS: VITAMIN C 500 MG PO ×2 (07:57→19:28)
[2024-05-28] MEDS: HEPARIN 5000 UNITS SC ×2 (07:58→19:27)
[2024-05-28 08:00] VITALS: BP 90/55
[2024-05-28 08:41] LABS: Blood Urea Nitrogen 21 mg/dl (7-17); Calcium 8.7 mg/dl (8.4-10.2); Carbon Dioxide 28 mmol/L (22-30); Chloride 103 mmol/L (98-107); Estimated Creatinine Clearance 103 ml/min; Glucose 89 mg/dl (70-99); Magnesium 1.9 mg/dl (1.6-2.3); Phosphorus 4.2 mg/dl (2.5-4.5); Potassium 4.4 mmol/L (3.5-5.1); Sodium 140 mmol/L (135-145); eGFR > 60.00
[2024-05-28] MEDS: FLAGYL 500 MG PO ×2 (09:43→22:00)
[2024-05-28] MEDS: KLONOPIN 1 MG PO ×2 (12:08→22:54)
--- NOTE | 2024-05-28 13:45 | W.PN.ID1 ---
Date of Service
Date of Service: May 28, 2024
Today's Communication
c/w levofloxacin and metronidazole
Assessment / Plan
Odontogenic Infection
Immunosuppression - Remicaide for Crohns Disease
Crohns Disease
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
- very subtle facial swelling noted, tenderness with facial palpation - stable
- household contact with active C difficile infection
- screen for MRSA colonization - negative
- c/w levofloxacin 750 mg PO qday /metronidazole 500 mg PO BID (take with food) plan another 4 days
- rechecked QTc remains acceptable
- hold oral vancomycin for the moment - prefer to see that patient is tolerating above regimen given her stated difficulties with drug tolerance
- she is not actually known to be colonized with C difficile
- encourage probiotic and fiber foods as tolerated; oral probiotic here
- family have cleaned household surfaces with bleach solution
follow clinically
Chief Complaint
-: Other (facial cellulitis)
Subjective / Review of Systems
afebrile
bp stable
no events overnight
some nausea - refuses antiemetics
Vital Signs / Physical Exam
Vital Signs
Vital Signs
Temp Pulse Resp BP Pulse Ox
98.2 F 78 18 90/55 96
05/28/24 08:00 05/28/24 08:00 05/28/24 08:00 05/28/24 08:00 05/28/24 08:00
Physical Exam
Constitutional: No Acute Distress
Head: Other (subtle facial swelling on the left)
Cardiovascular: Regular Rate and S1/S2; Negative Murmur or Rub
Pulmonary: Clear and Symmetric; Negative Wheezes or Rales
Gastrointestinal: Soft, Non Tender, Non Distended and Normal Bowel Sounds
Skin: Warm and Dry; Negative Rash or Jaundice
Objective Data
Lab Data
Lab Results
05/28/24 06:59
05/28/24 06:59
Estimated Creat Clear 103 ml/min 05/28/24 06:59
Total Bilirubin 0.5 mg/dl (0.2-1.3) 05/27/24 06:59
AST 26 U/L (14-36) 05/27/24 06:59
ALT 17 U/L (0-35) 05/27/24 06:59
Alkaline Phosphatase 78 U/L (38-126) 05/27/24 06:59
Most recent labs reviewed.
Micro Results:
05/27/24 14:54 Nasal Screen MRSA (PCR) - Final
Nose MRSA not detected - performed by PCR methodology.
[2024-05-28 15:45] VITALS: BP 105/70
[2024-05-28] MEDS: LEVAQUIN 750 MG PO (16:51)
[2024-05-28] MEDS: PEPCID 10 MG PO (22:00)
[2024-05-28] MEDS: NON-FORMULARY ITEM 1 UNIT PO ×2 (22:01→22:02)
[2024-05-28 22:50] VITALS: BP 114/71
[2024-05-28] MEDS: MELATONIN 10 MG PO (22:54)
[2024-05-28] MEDS: OXYCONTIN (CONTROLLED RELEASE) 10 MG PO (22:57)
[2024-05-29] MEDS: DILAUDID 1 MG IV ×5 (03:58→21:21)
[2024-05-29] MEDS: ROXICODONE 10 MG PO ×4 (06:19→20:41)
[2024-05-29] MEDS: TYLENOL 1000 MG PO ×4 (06:19→23:14)
[2024-05-29 07:00] VITALS: BP 126/60
[2024-05-29] MEDS: CYMBALTA DELAYED RELEASE 30 MG PO (08:33)
[2024-05-29] MEDS: CYMBALTA DELAYED RELEASE 60 MG PO (08:34)
[2024-05-29] MEDS: VISBIOME 2 CAP PO (08:34)
[2024-05-29] MEDS: COLACE 200 MG PO (08:34)
[2024-05-29] MEDS: HEPARIN 5000 UNITS SC ×2 (08:35→19:59)
[2024-05-29] MEDS: MAGIC OR MIRACLE MOUTHWASH 10 ML PO ×4 (08:35→21:22)
[2024-05-29] MEDS: NEURONTIN 300 MG PO ×4 (08:35→21:22)
[2024-05-29] MEDS: VITAMIN C 500 MG PO ×2 (08:35→19:59)
[2024-05-29] MEDS: ATARAX 25 MG PO ×4 (08:35→21:22)
[2024-05-29 09:10] LABS: Hematocrit 35.6 % (37.0-47.0); Hemoglobin 12.1 g/dL (12.0-16.0); Mean Corpuscular Hgb 28.7 pg (27.0-31.0); Mean Corpuscular Volume 84.6 fL (81.0-99.0); Mean Platelet Volume 10.7 fL (7.4-10.4); Platelet Count 195 10^3/uL (130-400); Red Blood Cell Count 4.21 10^6/uL (4.20-5.40); Red Cell Dist. Width 13.5 % (11.5-14.5); White Blood Cell Count 6.3 10^3/uL (4.8-10.8)
[2024-05-29 09:36] LABS: Blood Urea Nitrogen 23 mg/dl (7-17); Calcium 8.9 mg/dl (8.4-10.2); Carbon Dioxide 28 mmol/L (22-30); Chloride 101 mmol/L (98-107); Estimated Creatinine Clearance 90 ml/min; Glucose 89 mg/dl (70-99); Phosphorus 3.9 mg/dl (2.5-4.5); Sodium 141 mmol/L (135-145); eGFR > 60.00
[2024-05-29] MEDS: FLAGYL 500 MG PO ×2 (10:02→22:32)
--- NOTE | 2024-05-29 10:22 | W.PN.ID1 ---
Date of Service
Date of Service: May 29, 2024
Today's Communication
nausea management per IM service
continue current antibiotics
Assessment / Plan
Odontogenic Infection
Immunosuppression - Remicaide for Crohns Disease
Crohns Disease
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
Anxiety
Nausea
- nausea management per IM service, she is known to GI service as an outpatient for Crohns as well.
- very subtle facial swelling noted, tenderness with facial palpation - stable
- check esr and crp in the AM
- household contact with active C difficile infection - improving
- c/w levofloxacin 750 mg PO qday /metronidazole 500 mg PO BID (take with food) plan another 3-5 days
- rechecked QTc remains acceptable
- hold oral vancomycin for the moment - prefer to see that patient is tolerating above regimen given her stated difficulties with drug tolerance
- she is not actually known to be colonized with C difficile
- encourage probiotic and fiber foods as tolerated; oral probiotic here
- family have cleaned household surfaces with bleach solution
follow clinically
Chief Complaint
-: Other (facial cellulitis)
Subjective / Review of Systems
afebrile
bp stable
stable, mild facial tenderness
nausea however overall tolerating drugs
Vital Signs / Physical Exam
Vital Signs
Vital Signs
Temp Pulse Resp BP Pulse Ox
98.1 F 110 20 126/60 99
05/29/24 07:00 05/29/24 07:00 05/29/24 07:00 05/29/24 07:00 05/29/24 08:35
Physical Exam
Constitutional: No Acute Distress
Head: Other (minimal L facial swelling - mild tenderness - stable; no swelling, redness or fluctuance over the gum or surgical site)
Cardiovascular: Regular Rate and S1/S2; Negative Murmur or Rub
Pulmonary: Clear and Symmetric; Negative Wheezes or Rales
Gastrointestinal: Soft, Non Tender, Non Distended and Normal Bowel Sounds
Skin: Warm and Dry; Negative Rash or Jaundice
Objective Data
Lab Data
Lab Results
05/29/24 08:40
05/29/24 08:40
Estimated Creat Clear 90 ml/min 05/29/24 08:40
Total Bilirubin 0.5 mg/dl (0.2-1.3) 05/27/24 06:59
AST 26 U/L (14-36) 05/27/24 06:59
ALT 17 U/L (0-35) 05/27/24 06:59
Alkaline Phosphatase 78 U/L (38-126) 05/27/24 06:59
Most recent labs reviewed.
Micro Results:
05/27/24 14:54 Nasal Screen MRSA (PCR) - Final
Nose MRSA not detected - performed by PCR methodology.
Care Review
Plan reviewed with: Physician (Dr Kothari - [facility] [place] - left tiger text message for her updating on course)
--- NOTE | 2024-05-29 11:11 | CM ---
CM reviewed chart, patient seen bedside with wesley, reports no concerns to CM at this time. CM will continue to follow for all discharge planning needs.
Plan; home with family, likely no needs.
[2024-05-29] MEDS: KLONOPIN 1 MG PO ×2 (12:04→23:14)
[2024-05-29] MEDS: PHENERGAN 12.5 MG PO ×3 (13:07→22:32)
--- NOTE | 2024-05-29 14:02 | W.PN.HOSP.TC ---
Today's Communication/Plan
-
Monitor vital signs see plan
trial of Phenergan
Continue antibiotics
Encourage p.o. intake
pain control
Assessment / Plan
Assessment / Plan
Physical Exam
General: No acute distress, appears relatively comfortable at this time.
HEENT: NormoCephalic, Moist mucous membranes and Atraumatic, left facial erythema
Respiratory: Clear
Cardiac: S1/S2 and Regular Rhythm
GI: Soft, Non Tender
Musculoskeletal: No Edema
Neuro: AOx3
Psych: Calm
# Recurrent left facial cellulitis secondary to dental infection
# History of tooth abscess status post root canal, with recent tooth resection
-empiric Vancomycin and Zosyn discontinued
-ID consult appreciated PO Levo 750 mg daily and Flagyll 500 mg BID to be taken with food
-Continue home pain control regimen with addition IV pain meds as follows
-IV Dilaudid 0.5 mg as needed moderate pain, 1mg for severe breakthrough pain (ok to be given no sooner than 30 min of oral pain meds)
-magic mouthwash, Tylenol scheduled 1000 mg Q6
-Monitor for diarrhea and C. difficile since mother is admitted for C. difficile at this time
-No need for Cdiff precautions at this time.
Complaining of nausea, spoke with pharmacy. History of serotonin syndrome. Ordered Phenergan
Crohn's disease
-Controlled
-On Remicade next dose due 06/20
-GI updated with regards to recent events (dental procedures and associate recurrent infections, cellulitis, prolonged abx, cdiff exposure) her outpt GI Dr Garcia to follow up
Celiac disease
IBS
Anxiety
-Continue clonazepam
-Continue duloxetine
Chronic pain
-Continue oxycodone, Dilaudid, gabapentin
Full code
DVT prophylaxis�heparin
Gluten-free regular diet
Discussed with patient and patient's elmer Mishra
Anticipated Discharge: Within 24 hours
Subjective/Interval History
-
Date of Service: May 29, 2024
Has some nausea this morning
Objective Data
-
Labs:
Laboratory Results
05/29/24
08:40
WBC 6.3
Hgb 12.1
Hct 35.6 L
Plt Count 195
Sodium 141
Potassium 4.0
Chloride 101
Carbon Dioxide 28
BUN 23 H
Creatinine 0.8
Glucose 89
Calcium 8.9
Vital Signs:
Vital Signs
Temp Pulse Resp BP Pulse Ox
98.1 F 110 20 126/60 99
05/29/24 07:00 05/29/24 07:00 05/29/24 07:00 05/29/24 07:00 05/29/24 08:35
I&O
05/28/24 05/29/24 05/30/24
06:59 06:59 06:59
Intake Total 480 / 480 960 / 960
Balance 480 / 480 960 / 960
[2024-05-29 15:00] VITALS: BP 98/60
[2024-05-29] MEDS: LEVAQUIN 750 MG PO (15:53)
[2024-05-29] MEDS: NON-FORMULARY ITEM 2 UNIT PO (21:22)
[2024-05-29] MEDS: PEPCID 10 MG PO (21:23)
[2024-05-29] MEDS: NON-FORMULARY ITEM 1 UNIT PO (21:23)
[2024-05-29 23:00] VITALS: BP 107/69
[2024-05-29] MEDS: OXYCONTIN (CONTROLLED RELEASE) 10 MG PO (23:14)
[2024-05-29] MEDS: MELATONIN 10 MG PO (23:14)
[2024-05-30] MEDS: DILAUDID 1 MG IV ×3 (02:36→10:34)
[2024-05-30] MEDS: PHENERGAN 12.5 MG PO ×2 (05:34→12:57)
[2024-05-30] MEDS: TYLENOL 1000 MG PO ×2 (05:36→11:29)
[2024-05-30 07:00] VITALS: BP 105/60
[2024-05-30 08:37] LABS: C-Reactive Protein < 5.00 mg/L (0.0-10.00)
[2024-05-30 08:44] LABS: Blood Urea Nitrogen 21 mg/dl (7-17); Calcium 9.1 mg/dl (8.4-10.2); Carbon Dioxide 27 mmol/L (22-30); Chloride 102 mmol/L (98-107); Estimated Creatinine Clearance 90 ml/min; Glucose 88 mg/dl (70-99); Phosphorus 4.3 mg/dl (2.5-4.5); Potassium 4.1 mmol/L (3.5-5.1); Sodium 141 mmol/L (135-145); eGFR > 60.00
[2024-05-30] MEDS: CYMBALTA DELAYED RELEASE 60 MG PO (08:44)
[2024-05-30] MEDS: NEURONTIN 300 MG PO ×2 (08:44→12:57)
[2024-05-30] MEDS: ROXICODONE 10 MG PO ×2 (08:44→11:29)
[2024-05-30] MEDS: ATARAX 25 MG PO ×2 (08:45→12:57)
[2024-05-30] MEDS: VISBIOME 2 CAP PO (08:45)
[2024-05-30] MEDS: COLACE PO (08:45)
[2024-05-30] MEDS: CYMBALTA DELAYED RELEASE 30 MG PO (08:45)
[2024-05-30] MEDS: HEPARIN 5000 UNITS SC (08:46)
[2024-05-30] MEDS: MAGIC OR MIRACLE MOUTHWASH 10 ML PO ×2 (08:46→12:58)
[2024-05-30] MEDS: VITAMIN C 500 MG PO (08:46)
[2024-05-30 08:47] LABS: Hematocrit 34.5 % (37.0-47.0); Mean Corp Hgb Conc. 34.8 g/dL (33.0-37.0); Mean Corpuscular Hgb 29.6 pg (27.0-31.0); Mean Platelet Volume 11.4 fL (7.4-10.4); Platelet Count 186 10^3/uL (130-400); Red Blood Cell Count 4.06 10^6/uL (4.20-5.40); Red Cell Dist. Width 13.5 % (11.5-14.5); White Blood Cell Count 6.4 10^3/uL (4.8-10.8)
[2024-05-30 09:05] LABS: Erythrocyte Sed Rate 23 mm/hour (0-20)
[2024-05-30 09:47] LABS: % Basophils 0.3 % (0-2); % Eosinophils 9.1 % (0-6); % Immature Granulocytes 0.3 % (0-0.5); % Lymphocytes 53.8 % (20.5-51.1); % Monocytes 9.1 % (1.7-9.3); % Neutrophils 27.4 % (42.2-75.2); Absolute Eosinophils 0.6 10^3/uL (0-0.7); Absolute Lymphocytes 3.4 10^3/uL (1.2-3.4); Absolute Monocytes 0.6 10^3/uL (0.1-0.6); Absolute Neutrophils 1.8 10^3/uL (1.4-6.5); Nucleated Red Blood Cells % 0 %
--- NOTE | 2024-05-30 10:00 | PTCARENOTE ---
05/30- Patient reports 5 episodes of loose BMs overnight. States they were semi-formed with no distinct smell. Denies fever, chills or vomiting but states the consistent nausea still present. Phenergan reportedly helps the nausea. Notified
Physician.
[2024-05-30] MEDS: FLAGYL 500 MG PO (10:34)
[2024-05-30] MEDS: KLONOPIN 1 MG PO (11:28)
[2024-05-30] MEDS: TYLENOL PO (11:30)
--- NOTE | 2024-05-30 12:25 | W.PN.ID1 ---
Date of Service
Date of Service: May 30, 2024
Today's Communication
- c/w levofloxacin 750 mg PO qday /metronidazole 500 mg PO BID (take with food) plan another 4 days
- she is not colonized with C diff - ok for PRN Imodium
stable for dc from ID perspective -
Assessment / Plan
Odontogenic Infection
Immunosuppression - Remicaide for Crohns Disease
Crohns Disease
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
Anxiety
Nausea
- nausea management per IM service, she is known to GI service as an outpatient for Crohns as well.
- very subtle facial swelling noted, tenderness with facial palpation - stable
- very minimally elevated ESR at 23 (20 normal) and CRP is normal
- household contact with active C difficile infection - improving
- c/w levofloxacin 750 mg PO qday /metronidazole 500 mg PO BID (take with food) plan another 4 days
- she is not colonized with C diff - ok for PRN Imodium
stable for dc from ID perspective -
Chief Complaint
-: Other (facial cellulitis)
Subjective / Review of Systems
afebrile
bp stable
some loose stool x5 - c diff is negative
tolerating nausea
Vital Signs / Physical Exam
Vital Signs
Vital Signs
Temp Pulse Resp BP Pulse Ox
98.1 F 83 20 105/60 99
05/30/24 07:00 05/30/24 07:00 05/30/24 07:00 05/30/24 07:00 05/30/24 08:45
Physical Exam
Constitutional: No Acute Distress
Head: Other (no visible swelling today; there is slight increase in the color of the hyperpigmentation under the right eye - subtle; mild tenderness over the L maxilla - stable; gums around surgical site no swelling or warmth, surgcial site is clean)
Cardiovascular: Regular Rate
Pulmonary: Symmetric and Non Labored
Gastrointestinal: Non Distended
Skin: Dry; Negative Rash or Jaundice
Neurological: Awake
Objective Data
Lab Data
Lab Results
05/30/24 06:48
05/30/24 06:48
ESR 23 mm/hour (0-20) H 05/30/24 06:48
Estimated Creat Clear 90 ml/min 05/30/24 06:48
Total Bilirubin 0.5 mg/dl (0.2-1.3) 05/27/24 06:59
AST 26 U/L (14-36) 05/27/24 06:59
ALT 17 U/L (0-35) 05/27/24 06:59
Alkaline Phosphatase 78 U/L (38-126) 05/27/24 06:59
C-Reactive Protein < 5.00 mg/L (0.0-10.00) 05/30/24 06:48
Most recent labs reviewed.
Micro Results:
05/30/24 10:41 C. difficile [facility] Antigen & Toxins - Final
Feces/Stool Negative for toxigenic C.difficile
05/27/24 14:54 Nasal Screen MRSA (PCR) - Final
Nose MRSA not detected - performed by PCR methodology.
Care Review
Plan reviewed with: Physician (Dr Kenney - antibiotics, imodium)
--- NOTE | 2024-05-30 12:34 | W.PN.HOSP.TC ---
Addendum entered and electronically signed by Marvin Kenney MD 05/30/24 12:45:
Time of discharge 39 minutes
Original Note:
Today's Communication/Plan
-
monitor vitals
see plan
cdiff neg; imodium prn
dc today
cw abx for 4 more days
phenergan
Assessment / Plan
Assessment / Plan
Physical Exam
General: No acute distress, appears relatively comfortable at this time.
HEENT: NormoCephalic, Moist mucous membranes and Atraumatic, left facial erythema
Respiratory: Clear
Cardiac: S1/S2 and Regular Rhythm
GI: Soft, Non Tender
Musculoskeletal: No Edema
Neuro: AOx3
Psych: Calm
# Recurrent left facial cellulitis secondary to dental infection
# History of tooth abscess status post root canal, with recent tooth resection
-empiric Vancomycin and Zosyn discontinued
-ID consult appreciated PO Levo 750 mg daily and Flagyll 500 mg BID to be taken with food. Discussed with infectious disease and will continue for another 4 days. Patient symptoms are tolerable with Phenergan
-Continue home pain control regimen
-magic mouthwash, Tylenol scheduled 1000 mg Q6
-Monitor for diarrhea and C. difficile since mother is admitted for C. difficile at this time. She did had some loose stool today, C. difficile negative. Discussed with ID and is okay to use Imodium as needed. Discharge patient today. Patient
agreeable
Crohn's disease
-Controlled
-On Remicade next dose due 06/20
-GI updated with regards to recent events (dental procedures and associate recurrent infections, cellulitis, prolonged abx, cdiff exposure) her outpt GI Dr Garcia to follow up
Celiac disease
IBS
Anxiety
-Continue clonazepam
-Continue duloxetine
Chronic pain
-Continue oxycodone, Dilaudid, gabapentin
Full code
DVT prophylaxis�heparin
Gluten-free regular diet
Discussed with patient
Anticipated Discharge: Today
Subjective/Interval History
-
Date of Service: May 30, 2024
Does have some nausea
Objective Data
-
Labs:
Laboratory Results
05/30/24
06:48
WBC 6.4
Hgb 12.0
Hct 34.5 L
Plt Count 186
Sodium 141
Potassium 4.1
Chloride 102
Carbon Dioxide 27
BUN 21 H
Creatinine 0.8
Glucose 88
Calcium 9.1
Vital Signs:
Vital Signs
Temp Pulse Resp BP Pulse Ox
98.1 F 83 20 105/60 99
05/30/24 07:00 05/30/24 07:00 05/30/24 07:00 05/30/24 07:00 05/30/24 08:45
I&O
05/29/24 05/30/24 05/31/24
06:59 06:59 06:59
Intake Total 960 / 960 960 / 960
Balance 960 / 960 960 / 960
--- NOTE | 2024-05-30 12:44 | W.DCSUMMARY ---
Discharge Summary
Discharge Data
Date of Admission: 05/26/24
Date of Discharge: 05/30/24
-
Pending Results: No
Hospital Course
29-year-old female with past medical history of chron's disease on immunosuppressant, celiac disease, IBS, anxiety, chronic pain, recent tooth abscess with dental infection came to the hospital with recurrent left facial cellulitis secondary to
dental infection. Patient was initially started on IV antibiotics which improved her symptoms. Later on she was started on p.o. antibiotics per infectious disease recommendation. She also had some diarrhea on this hospitalization which was likely
attributed to recent antibiotics and her C. difficile was checked which was negative. She also had some nausea for which she was started on Phenergan which improved her symptoms. Per infectious disease recommendation, once patient was able to
tolerate p.o. she was then discharged home with few more remaining days of antibiotics and instructions to follow-up with [facility] closely outpatient.
Discharge Plan
-
Patient Disposition: Home (Routine Discharge)
Discharge Diagnosis/Procedures: Odontogenic infection
Facial cellulitis
Condition: Fair
Diet: As tolerated
Activity: As tolerated
Driving Restrictions: As prior to admission
Bathing Restrictions: None
Activity Restrictions/Additional Instructions:
Please follow-up with [facility] outpatient
Referrals:
Nadege Dyson PA [Family Provider] - in less than 1 week
Prescriptions:
New
metronidazole 500 mg Tablet
500 mg PO Q12H Qty: 8 0RF
promethazine 25 mg Tablet
12.5 mg PO Q6HPRN PRN (Reason: nausea and vomiting) Qty: 15 0RF
lidocaine HCl [Lidocaine Viscous] 2 % Solution
10 ml PO QID Qty: 0 0RF
levofloxacin 750 mg Tablet
750 mg PO Q24H Qty: 4 0RF
loperamide [Imodium A-D] 2 mg capsule
2 mg PO Q6H PRN (Reason: loose stool) Qty: 1 0RF
Continued
oxycodone 10 mg Tablet
10 mg PO QID@07,12,17,21
Patient Comments:
05/26/24: last filled 05/15/24 for 150 tablets over 30 days
clonazepam 1 mg Tablet
1 mg PO BID@1130,2300
fexofenadine 180 mg Tablet
360 mg PO HS
Patient Comments:
05/26/24: She gets special 360mg tabs from traveling passenger agent.
acetaminophen [Tylenol Extra Strength] 500 mg Tablet
1,000 mg PO Q6HPRN PRN (Reason: mild pain)
famotidine [Pepcid] 20 mg Tablet
10 mg PO HS
ascorbic acid (vitamin C) [Vitamin C] 500 mg Tablet
500 mg PO BID
infliximab [Remicade] 100 mg Recon Soln
7.5 mg IV Q6W
Rx Instructions:
7.5 mg/kg
gabapentin 300 mg Capsule
300 mg PO QID@,,,
hydroxyzine pamoate 25 mg capsule
25 mg PO QID@,,,
duloxetine [Cymbalta] 30 mg Capsule,Delayed Release(Dr/Ec)
30 mg PO DAILY
Rx Instructions:
take with 60mg
duloxetine [Cymbalta] 60 mg Capsule,Delayed Release(Dr/Ec)
60 mg PO DAILY
Rx Instructions:
take with 30mg
melatonin 10 mg Tablet
10 mg PO HS@2300
oxycodone [OxyContin] 10 mg Tablet,Oral Only,Ext.Rel.12 Hr
10 mg PO HS@2300
vitamin A 3,000 mcg (10,000 unit) Capsule
3,000 mcg PO HS
therapeutic multivitamin Tablet
1 tab PO HS
Patient Comments:
05/20/24: Patient would like to use their own brand
hydromorphone 4 mg Tablet
4 mg PO Q4HPRN PRN (Reason: severe breakthrough pain)
Patient Comments:
Pt reports 'I took 2 mg so I split it in half'
Visbiome 112.5 billion cell capsule
2 cap PO DAILY Qty: 30 0RF
oxycodone 10 mg Tablet
10 mg PO HSPRN PRN (Reason: severe pain)
Patient Comments:
05/26/24: last filled 05/15/24 for 150 tablets over 30 days
Held
docusate sodium [Colace] 100 mg Capsule
200 mg PO DAILY
Hold Instructions: until diarrhea resolves
Fleet Enema
Hold Instructions: Until diarrhea resolves
Discharge Orders:
Discharge Patient (As Directed); Ordered 05/30/24
Ordered By: Marvin Kenney
Discharge Date and Time
Discharge Date/Time: 05/30/24 13:38
Print Language: CZECH
--- NOTE | 2024-05-30 13:42 | CM ---
CM reviewed chart, patient for discharge today. CM will continue to follow for all discharge planning needs.
Plan; home with family, no needs.
== END 2024-05-30 13:38 | disposition home or self-care (01) | DRG 158 ==
LOC: 4 WEST ACU 18:05
PROVIDERS: Internal Medicine; Physician Assistant; ADMITTING PHYSICIAN Hospitalist; ATTENDING PHYSICIAN Internal Medicine; CONSULT PHYSICIAN Student in an Organized Health Care Education/Training Program; EMERGENCY PHYSICIAN Emergency Medicine; FAMILY PHYSICIAN Physician Assistant Medical
DX: K04.7 Periapical abscess without sinus (principal); D84.821 Immunodeficiency due to drugs; L03.211 Cellulitis of face; K50.90 Crohn's disease, unspecified, without complications; F11.20 Opioid dependence, uncomplicated; K90.0 Celiac disease; F41.9 Anxiety disorder, unspecified; F32.A Depression, unspecified; G89.29 Other chronic pain; H53.2 Diplopia; Z79.620 Long term (current) use of immunosuppressive biologic; Z79.899 Other long term (current) drug therapy
CPT/HCPCS: 80048; 80053; 83735; 84100; 85025; 85027; 85652; 86140; 87324; 87449; 87641; 93005; 96374; 96375; 99284

== ENCOUNTER 2024-06-16 15:21 | Emergency (ER) | payer OTHER, SELFPAY ==
[2024-06-16 15:24] VITALS: BP 102/75
[2024-06-16 15:49] LABS: % Basophils 0.2 % (0-2); % Eosinophils 3.2 % (0-6); % Immature Granulocytes 0.5 % (0-0.5); % Lymphocytes 19.5 % (20.5-51.1); % Monocytes 9.5 % (1.7-9.3); % Neutrophils 67.1 % (42.2-75.2); Absolute Eosinophils 0.3 10^3/uL (0-0.7); Absolute Lymphocytes 1.7 10^3/uL (1.2-3.4); Absolute Monocytes 0.8 10^3/uL (0.1-0.6); Absolute Neutrophils 5.8 10^3/uL (1.4-6.5); Hematocrit 35.9 % (37.0-47.0); Hemoglobin 12.7 g/dL (12.0-16.0); Mean Corp Hgb Conc. 35.4 g/dL (33.0-37.0); Mean Corpuscular Hgb 29.4 pg (27.0-31.0); Mean Corpuscular Volume 83.1 fL (81.0-99.0); Mean Platelet Volume 10.1 fL (7.4-10.4); Nucleated Red Blood Cells % 0 %; Platelet Count 221 10^3/uL (130-400); Red Blood Cell Count 4.32 10^6/uL (4.20-5.40); White Blood Cell Count 8.7 10^3/uL (4.8-10.8)
[2024-06-16 16:07] LABS: HCG, Serum Qualitative Screen Negative
[2024-06-16 16:10] LABS: ALT (SGPT) 19 U/L (0-35); AST (SGOT) 25 U/L (14-36); Albumin 4.2 g/dl (3.5-5.0); Alkaline Phosphatase 78 U/L (38-126); Blood Urea Nitrogen 14 mg/dl (7-17); Calcium 8.8 mg/dl (8.4-10.2); Carbon Dioxide 23 mmol/L (22-30); Chloride 102 mmol/L (98-107); Glucose 98 mg/dl (70-99); Potassium 4.1 mmol/L (3.5-5.1); Sodium 137 mmol/L (135-145); Total Bilirubin 0.7 mg/dl (0.2-1.3); Total Protein 7.7 g/dl (6.3-8.2); eGFR > 60.00
[2024-06-16] MEDS: DILAUDID 1 MG IV (18:35)
[2024-06-16 18:36] LABS: Erythrocyte Sed Rate 26 mm/hour (0-20)
[2024-06-16 18:54] LABS: C-Reactive Protein < 5.00 mg/L (0.0-10.00)
[2024-06-16] MEDS: PHENERGAN 50.5 MG IV (19:46)
[2024-06-16 21:24] VITALS: BP 113/71
--- NOTE | 2024-06-16 22:17 | ED.GENMED ---
History of Present Illness
General
Chief Complaint: Headache
Source: patient
Exam Limitations: none
Time Seen by Provider: 06/16/24 17:58
Nursing documentation reviewed up to this point in time: agreed with
History of Present Illness
History of Present Illness:
Patient to ED for complaint of worsening right sided joint pain, headache. States right side from head to lower leg hurts. No history of trauma. She has history of chronic pain and follows with pain management. Her typical pain meds of
oxycodone, dilaudid, oxycontin, gabapentin are not helping. SHe has been to the ED in the past for exacerbation of her joint pain. States this feels different. Denies fever/chills, recent illness. Brought to ED by sig other for eval.
Past History
Past History
ED Past Medical History: Other (Crohn's disease, celiac, IBS, anxiety)
ED Past Surgical History: Orthopedic and Other (Bowel surgery)
Social History
Tobacco: Non-smoker
Alcohol: Occasional
Drug: None
Personal: Other (Engage)
Living: with family
Employment: Employed
Family History
Family History: Other (her dads mother had Juvenile RA, mother has palpitations)
Phy Exam
General Physical Exam
General Presentation: well appearing
General age: appears stated age
General Skin: warm and dry
General Habitus: normal
General Mental: alert
Eye Exam
Eye Exam: PERRL, EOMI, conjunctiva normal and globe normal
Neurological Exam
Neurological Exam: alert, oriented x3, CN II-XII intact, no motor deficits, normal reflexs, no sensory deficits and speech normal
Reflexes
Reflexes: +3: Left patellar and +3: Right patellar
Musculoskeletal Exam
Musculoskeletal Exam: full ROM and neuro vasc intact
Skin Exam
Skin Exam: normal color, warm/dry, no rash and no petechia
Psychiatric Exam
Psychiatric Exam: normal mood/affect
Course
Orders/Labs/Results
Orders:
Orders
06/16/24 15:28
Electrocardiogram (*1) Urgent
Reason for Study: Vertigo / Dizzy
EKG- Treatment ONCE
Test Result ONCE
06/16/24 15:39
C-Reactive Protein Urgent
Comment: ADD ON
Complete Blood Count/With Diff Urgent
Comprehensive Metabolic Panel Urgent
Erythrocyte Sed Rate Urgent
Comment: ADD ON
HCG, Serum Qualitative Screen Urgent
06/16/24 18:17
Add On- LAB Urgent
Tests Added?: Sed rate, CRP
06/16/24 18:18
CT Head W/o Iv Contrast Urgent
Comment:
Reason For Exam: pain
Cervical Spine wo Contrast CT [CT Cervical Spine W/o Iv Contr] Urgent
Comment:
Reason For Exam: severe pain, RUE numbness
06/16/24 18:20
HYDROmorphone [Dilaudid] 1 mg IV NOW STA
Ondansetron Injectable [Zofran] 4 mg IV NOW STA
06/16/24 19:39
Promethazine [Phenergan] 12.5 mg 0.9% Sodium Chloride 50 ml [Nss] 50 ml IV NOW
Abnormal Lab Results
06/16/24
15:39
Hct 35.9 L %
(37.0-47.0)
Absolute Monos (auto) 0.8 H 10^3/uL
(0.1-0.6)
Lymphocytes % 19.5 L %
(20.5-51.1)
Monocytes % 9.5 H %
(1.7-9.3)
ESR 26 H mm/hour
(0-20)
06/16/24 15:39
06/16/24 15:39
Vital Signs
Initial and Last Documented VS:
Initial Vital Signs
Temp Pulse Resp BP Pulse Ox
98.8 F 64 16 102/75 95
06/16/24 15:24 06/16/24 15:24 06/16/24 15:24 06/16/24 15:24 06/16/24 15:24
Last Documented Vital Signs
Temp Pulse Resp BP Pulse Ox
98.8 F 104 15 113/71 95
06/16/24 15:24 06/16/24 21:24 06/16/24 21:24 06/16/24 21:24 06/16/24 21:24
*Critical Care Note
Total Time (30-74mins, 75-104mins- exclusive of procedures): Not Applicable
Update Note
Update Note:
Labs, CT reviewed. No findings to explain her symtpoms. Physical exam unremarkable. NO joint erythema or swelling. Ambulates without assistance. Has full ROM to all extremities. VSS, afebrile. Will discharge home, follow up with pain management
on Wednesday.
ED Attending Note
-
Portions of this chart may have been created with voice recognition software.� Occasional wrong word or��sound alike� substitutions may have occurred due to the inherent limitations of voice recognition software.
Discharge Plan
Departure
Patient Disposition: Home (Routine Discharge)
Date of Disposition: 06/16/24
Time of Disposition: 21:19
Patient with high blood pressure during this ER visit?: No
Condition: Good
Covid-19: Not Applicable
Discharge Problem:
Headache, Cervical radiculopathy
Instructions: Headache, Adult (DC), Radiculopathy of the neck and back (including sciatica) - Discharge instructions
Prescriptions:
No Action
oxycodone 10 mg Tablet
10 mg PO QID@07,12,17,21
Patient Comments:
05/26/24: last filled 05/15/24 for 150 tablets over 30 days
clonazepam 1 mg Tablet
1 mg PO BID@1130,2300
fexofenadine 180 mg Tablet
360 mg PO HS
Patient Comments:
05/26/24: She gets special 360mg tabs from business services assistant.
acetaminophen [Tylenol Extra Strength] 500 mg Tablet
1,000 mg PO Q6HPRN PRN (Reason: mild pain)
famotidine [Pepcid] 20 mg Tablet
10 mg PO HS
ascorbic acid (vitamin C) [Vitamin C] 500 mg Tablet
500 mg PO BID
infliximab [Remicade] 100 mg Recon Soln
7.5 mg IV Q6W
Rx Instructions:
7.5 mg/kg
gabapentin 300 mg Capsule
300 mg PO QID@,,,
hydroxyzine pamoate 25 mg capsule
25 mg PO QID@,,
duloxetine [Cymbalta] 30 mg Capsule,Delayed Release(Dr/Ec)
30 mg PO DAILY
Rx Instructions:
take with 60mg
duloxetine [Cymbalta] 60 mg Capsule,Delayed Release(Dr/Ec)
60 mg PO DAILY
Rx Instructions:
take with 30mg
melatonin 10 mg Tablet
10 mg PO HS@2300
oxycodone [OxyContin] 10 mg Tablet,Oral Only,Ext.Rel.12 Hr
10 mg PO HS@2300
vitamin A 3,000 mcg (10,000 unit) Capsule
3,000 mcg PO HS
therapeutic multivitamin Tablet
1 tab PO HS
Patient Comments:
05/20/24: Patient would like to use their own brand
hydromorphone 4 mg Tablet
4 mg PO Q4HPRN PRN (Reason: severe breakthrough pain)
Patient Comments:
Pt reports 'I took 2 mg so I split it in half'
Visbiome 112.5 billion cell capsule
2 cap PO DAILY Qty: 30 0RF
docusate sodium [Colace] 100 mg Capsule
200 mg PO DAILY
oxycodone 10 mg Tablet
10 mg PO HSPRN PRN (Reason: severe pain)
Patient Comments:
05/26/24: last filled 05/15/24 for 150 tablets over 30 days
Fleet Enema
metronidazole 500 mg Tablet
500 mg PO Q12H Qty: 8 0RF
promethazine 25 mg Tablet
12.5 mg PO Q6HPRN PRN (Reason: nausea and vomiting) Qty: 15 0RF
lidocaine HCl [Lidocaine Viscous] 2 % Solution
10 ml PO QID Qty: 0 0RF
levofloxacin 750 mg Tablet
750 mg PO Q24H Qty: 4 0RF
loperamide [Imodium A-D] 2 mg capsule
2 mg PO Q6H PRN (Reason: loose stool) Qty: 1 0RF
Referrals:
Nadege Dyson PA [Family Provider] -
Activity Restrictions/Additional Instructions:
Follow up with your pain management provider.
Interventions
Interventions:
*Risk Screen - Suicide Last Done: 06/16/24 15:27
*Neglect/Abuse Screening Last Done: 06/16/24 15:27
*ED COVID-19 Vaccine History Last Done: 06/16/24 15:27
*Nursing Disposition Last Done: 06/16/24 21:35
ED- Neurological Assessment Last Done: 06/16/24 18:03
Discharge Date and Time
Discharge Date/Time: 06/16/24 21:35
Print Language: URDU
== END 2024-06-16 21:35 | disposition home or self-care (01) ==
LOC: EMR 15:21
PROVIDERS: Emergency Medicine; EMERGENCY PHYSICIAN Emergency Medicine; FAMILY PHYSICIAN Physician Assistant Medical
DX: M54.12 Radiculopathy, cervical region (principal); R51.9 Headache, unspecified; G89.29 Other chronic pain
CPT/HCPCS: 99285; 96365; 96375; 70450; 72125; 80053; 84703; 85025; 85652; 86140; 93005

== ENCOUNTER 2024-06-21 10:52 | Emergency (ER) | payer OTHER, SELFPAY ==
[2024-06-21 11:17] VITALS: BP 130/88
[2024-06-21 13:29] VITALS: BMI 26.9
[2024-06-21] MEDS: DILAUDID 1 MG IV ×2 (13:59→16:53)
[2024-06-21] MEDS: NSS 1000 IV (13:59)
[2024-06-21 14:05] VITALS: BP 122/75
--- NOTE | 2024-06-21 14:11 | ED.GENMED ---
History of Present Illness
<Huyen Dee MD - Last Filed: 06/21/24 14:12>
General
Chief Complaint: Facial Problem
Time Seen by Provider: 06/21/24 13:05
<Yosi Kim Jr., PA-C - Last Filed: 06/23/24 18:22>
General
Source: patient
Exam Limitations: none
Nursing documentation reviewed up to this point in time: agreed with
History of Present Illness
History of Present Illness:
29-year-old female presenting to the emergency department today with concerns of a slight redness and swelling to the left side of the face over the past few days. Recently admitted to the hospital 1 month ago for similar symptoms was initially
treated with IV Vanco and Zosyn switched to oral antibiotics and followed up with oral maxillofacial surgery. Had a procedure last week initially did well recurrence over the past few days. Denies nausea vomiting think she may have had a fever at
home. Able to swallow no vomiting.
Past History
<Huyen Dee MD - Last Filed: 06/21/24 14:12>
Past History
ED Past Medical History: Other (Crohn's disease, celiac, IBS, anxiety)
ED Past Surgical History: Orthopedic and Other (Bowel surgery)
Social History
Tobacco: Non-smoker
Alcohol: Occasional
Drug: None
Personal: Other (Engage)
Living: with family
Employment: Employed
Family History
Family History: Other (her dads mother had Juvenile RA, mother has palpitations)
Review of Systems
<Yois Kim Jr., PA-C - Last Filed: 06/23/24 18:22>
Review of Systems
Allergies reviewed?: Yes
All Other Systems: ROS reviewed and negative except as documented in HPI and ROS
Phy Exam
<Yosi Kim Jr., PA-C - Last Filed: 06/23/24 18:22>
Physical Exam
Physical Exam:
GENERAL: Alert , in no apparent distress
EYE: pupils equal and reactive
NECK: Supple, no significant adenopathy.
ENT: Slight vague swelling to the left side of the face from the left lip region to the infraorbital region. Of vague redness but no heavy or dark redness no tenderness patient. Normal-appearing dental and oral mucosa o/p clr, mmm.
CARDIAC: Regular rate and rhythm .
LUNGS: Clear breath sounds bilaterally, no acute respiratory distress, no wheezes/rales/rhonchi
ABDOMEN: Soft, without focal tenderness, no r/g, no cvat
NEUROLOGICAL: Alert and oriented, no focal neuro deficits
SKIN: Warm and dry, skin intact.
MUSCULOSKELETAL: No edema, well perfused.
PSYCH: Normal and appropriate interaction.
Course
<Huyen Dee MD - Last Filed: 06/21/24 14:12>
Orders/Labs/Results
Orders:
Orders
06/21/24 13:40
0.9% Sodium Chloride 1000 ml [Nss] 1,000 ml IV BOLUS
HYDROmorphone [Dilaudid] 1 mg IV NOW STA
06/21/24 13:41
Test Result ONCE
06/21/24 13:58
CBC/With Diff [Complete Blood Count/With Diff] Urgent
CMP [Comprehensive Metabolic Panel] Urgent
HCG, Serum Qualitative Screen Urgent
Lactic Acid Urgent
06/21/24 13:59
CT Facial Bones W/ Iv Contrast Urgent
Comment:
Reason For Exam: facial swelling, infection lft side
06/21/24 16:42
HYDROmorphone [Dilaudid] 1 mg IV NOW STA
06/21/24 16:58
Clindamycin 600 mg/50 ml [Cleocin] 600 mg in 50 ml IV NOW
06/21/24 17:45
Clindamycin HCl [Cleocin] 300 mg PO NOW STA
06/21/24 18:02
Promethazine [Phenergan] 12.5 mg 0.9% Sodium Chloride 50 ml [Nss] 50 ml IV NOW
Abnormal Lab Results
06/21/24
13:58
RBC 4.07 L 10^6/uL
(4.20-5.40)
Hgb 11.7 L g/dL
(12.0-16.0)
Hct 34.0 L %
(37.0-47.0)
Absolute Monos (auto) 0.8 H 10^3/uL
(0.1-0.6)
06/21/24 13:58
06/21/24 13:58
Vital Signs
Initial and Last Documented VS:
Initial Vital Signs
Temp Pulse Resp BP Pulse Ox
98.2 F 129 18 130/88 98
06/21/24 11:17 06/21/24 11:17 06/21/24 11:17 06/21/24 11:17 06/21/24 11:17
Last Documented Vital Signs
Temp Pulse Resp BP Pulse Ox
98.2 F 121 12 113/81 96
06/21/24 11:17 06/21/24 19:00 06/21/24 19:00 06/21/24 19:00 06/21/24 19:00
<Yosi Kim Jr., PA-C - Last Filed: 06/23/24 18:22>
Orders/Labs/Results
Orders:
Orders
06/21/24 13:40
0.9% Sodium Chloride 1000 ml [Nss] 1,000 ml IV BOLUS
HYDROmorphone [Dilaudid] 1 mg IV NOW STA
06/21/24 13:41
Test Result ONCE
06/21/24 13:58
CBC/With Diff [Complete Blood Count/With Diff] Urgent
CMP [Comprehensive Metabolic Panel] Urgent
HCG, Serum Qualitative Screen Urgent
Lactic Acid Urgent
06/21/24 13:[address] Facial Bones W/ Iv Contrast Urgent
Comment:
Reason For Exam: facial swelling, infection lft side
06/21/24 16:42
HYDROmorphone [Dilaudid] 1 mg IV NOW STA
06/21/24 16:58
Clindamycin 600 mg/50 ml [Cleocin] 600 mg in 50 ml IV NOW
06/21/24 17:45
Clindamycin HCl [Cleocin] 300 mg PO NOW STA
06/21/24 18:02
Promethazine [Phenergan] 12.5 mg 0.9% Sodium Chloride 50 ml [Nss] 50 ml IV NOW
Abnormal Lab Results
06/21/24
13:58
RBC 4.07 L 10^6/uL
(4.20-5.40)
Hgb 11.7 L g/dL
(12.0-16.0)
Hct 34.0 L %
(37.0-47.0)
Absolute Monos (auto) 0.8 H 10^3/uL
(0.1-0.6)
06/21/24 13:58
06/21/24 13:58
Vital Signs
Initial and Last Documented VS:
Initial Vital Signs
Temp Pulse Resp BP Pulse Ox
98.2 F 129 18 130/88 98
06/21/24 11:17 06/21/24 11:17 06/21/24 11:17 06/21/24 11:17 06/21/24 11:17
Last Documented Vital Signs
Temp Pulse Resp BP Pulse Ox
98.2 F 121 12 113/81 96
06/21/24 11:17 06/21/24 19:00 06/21/24 19:00 06/21/24 19:00 06/21/24 19:00
<Yosi Kim Jr., PA-C - Last Filed: 06/23/24 18:22>
MDM/Problems Addressed
MDM/Problems Addressed:
29-year-old female presenting to the emergency department today with concerns of vague swelling redness to the face on the left side. Similar issue in the past that required antibiotics. She had a dental procedure done last week. Was worsening
over the past few days. On arrival here tachycardic otherwise vital signs are normal. She was given fluids and her home opioids that she may have missed with improvement of heart rate into the 90s. Patient in no distress here tolerating by mouth.
Labs without significant white count normal CMP. CT scan of the face with some vague swelling and lymphadenopathy but no signs of abscess or additional concerning features. Case discussed with infectious disease who feels that close follow-up
with oral maxillofacial surgery is imperative. On my reassessment patient is well-appearing vital signs are normal patient is in no distress is tolerated by mouth CT scan does not show deep space abscess or significant complicating features. Plan
to start patient on initial dose of IV antibiotic then continue on oral antibiotics and was advised to see oral maxillofacial surgery tomorrow if symptoms worsen for her to immediately return. She demonstrated understanding of this plan and was
agreeable to this.
<Yosi Kim Jr., PA-C - Last Filed: 06/23/24 18:22>
*Critical Care Note
Total Time (30-74mins, 75-104mins- exclusive of procedures): Not Applicable
ED Attending Note
<Huyen Dee MD - Last Filed: 06/21/24 14:12>
ED Attending Note
Patient seen and examined by attending physician: Yes
I performed the substantive portion of visit, reviewed & personally made and approve the management plan that is documented in note by myself or JACE.: Yes
ED Attending Note:
Patient with a history of facial cellulitis presents with several day history of recurrent facial swelling and redness. No recent fever above 100.4, no drainage, no chills. On exam, slight left cheek swelling noted with obscuration of nasolabial
fold, no fluctuance crepitus. Mild redness and warmth noted. Will CT rule out abscess, concern for recurrent early cellulitis.
-
Portions of this chart may have been created with voice recognition software.� Occasional wrong word or��sound alike� substitutions may have occurred due to the inherent limitations of voice recognition software.
Discharge Plan
Departure
Patient Disposition: Home (Routine Discharge)
Date of Disposition: 06/21/24
Time of Disposition: 17:45
Patient with high blood pressure during this ER visit?: No
Condition: Good
Covid-19: Not Applicable
Discharge Problem:
Cellulitis of face
Instructions: Cellulitis (Skin Infection), Adult (DC)
Prescriptions:
New
clindamycin HCl 300 mg capsule
300 mg PO Q6H 7 Days Qty: 28 0RF
No Action
oxycodone 10 mg Tablet
10 mg PO QID@07,12,17,21
Patient Comments:
05/26/24: last filled 05/15/24 for 150 tablets over 30 days
clonazepam 1 mg Tablet
1 mg PO BID@1130,2300
fexofenadine 180 mg Tablet
360 mg PO HS
Patient Comments:
05/26/24: She gets special 360mg tabs from tool inspector.
acetaminophen [Tylenol Extra Strength] 500 mg Tablet
1,000 mg PO Q6HPRN PRN (Reason: mild pain)
famotidine [Pepcid] 20 mg Tablet
10 mg PO HS
ascorbic acid (vitamin C) [Vitamin C] 500 mg Tablet
500 mg PO BID
infliximab [Remicade] 100 mg Recon Soln
7.5 mg IV Q6W
Rx Instructions:
7.5 mg/kg
gabapentin 300 mg Capsule
300 mg PO QID@08,13,18,22
hydroxyzine pamoate 25 mg capsule
25 mg PO QID@,
duloxetine [Cymbalta] 30 mg Capsule,Delayed Release(Dr/Ec)
30 mg PO DAILY
Rx Instructions:
take with 60mg
duloxetine [Cymbalta] 60 mg Capsule,Delayed Release(Dr/Ec)
60 mg PO DAILY
Rx Instructions:
take with 30mg
melatonin 10 mg Tablet
10 mg PO HS@2300
oxycodone [OxyContin] 10 mg Tablet,Oral Only,Ext.Rel.12 Hr
10 mg PO HS@2300
vitamin A 3,000 mcg (10,000 unit) Capsule
3,000 mcg PO HS
therapeutic multivitamin Tablet
1 tab PO HS
Patient Comments:
05/20/24: Patient would like to use their own brand
hydromorphone 4 mg Tablet
4 mg PO Q4HPRN PRN (Reason: severe breakthrough pain)
Patient Comments:
Pt reports 'I took 2 mg so I split it in half'
Visbiome 112.5 billion cell capsule
2 cap PO DAILY Qty: 30 0RF
docusate sodium [Colace] 100 mg Capsule
200 mg PO DAILY
oxycodone 10 mg Tablet
10 mg PO HSPRN PRN (Reason: severe pain)
Patient Comments:
05/26/24: last filled 05/15/24 for 150 tablets over 30 days
Fleet Enema
metronidazole 500 mg Tablet
500 mg PO Q12H Qty: 8 0RF
promethazine 25 mg Tablet
12.5 mg PO Q6HPRN PRN (Reason: nausea and vomiting) Qty: 15 0RF
lidocaine HCl [Lidocaine Viscous] 2 % Solution
10 ml PO QID Qty: 0 0RF
levofloxacin 750 mg Tablet
750 mg PO Q24H Qty: 4 0RF
loperamide [Imodium A-D] 2 mg capsule
2 mg PO Q6H PRN (Reason: loose stool) Qty: 1 0RF
Referrals:
Nadege Dyson PA [Family Provider] -
Activity Restrictions/Additional Instructions:
You came to the emergency department today with concerns of recurrence of swelling to the left side of your face. Here you did have a reassuring assessment. Please follow-up closely with your oral maxillofacial surgeon tomorrow or soon as possible
for reassessment. Please take the prescribed antibiotics. Immediately return to the ER if any symptoms are worsening or you start developing progression of symptoms.
Interventions
Interventions:
*Risk Screen - Suicide Last Done: 06/21/24 13:29
*General Assessment Last Done: 06/21/24 13:29
*Neglect/Abuse Screening Last Done: 06/21/24 13:29
ED- Fall Risk Assessment Last Done: 06/21/24 13:29
*ED COVID-19 Vaccine History Last Done: 06/21/24 13:29
*Nursing Disposition Last Done: 06/21/24 19:23
ED- Neurological Assessment Last Done: 06/21/24 13:29
ED-Skin Assessment Last Done: 06/21/24 13:29
Discharge Date and Time
Discharge Date/Time: 06/21/24 19:25
Print Language: [id number]
[2024-06-21 14:20] LABS: Hemoglobin 11.7 g/dL (12.0-16.0); Mean Corp Hgb Conc. 34.4 g/dL (33.0-37.0); Mean Corpuscular Hgb 28.7 pg (27.0-31.0); Mean Corpuscular Volume 83.5 fL (81.0-99.0); Mean Platelet Volume 9.9 fL (7.4-10.4); Platelet Count 226 10^3/uL (130-400); Red Blood Cell Count 4.07 10^6/uL (4.20-5.40); Red Cell Dist. Width 13.2 % (11.5-14.5); White Blood Cell Count 8.7 10^3/uL (4.8-10.8)
[2024-06-21 14:27] LABS: Lactic Acid 0.9 mmol/L (0.7-2.0)
[2024-06-21 14:28] LABS: ALT (SGPT) 19 U/L (0-35); AST (SGOT) 28 U/L (14-36); Albumin 3.8 g/dl (3.5-5.0); Alkaline Phosphatase 82 U/L (38-126); Blood Urea Nitrogen 12 mg/dl (7-17); Calcium 8.9 mg/dl (8.4-10.2); Carbon Dioxide 30 mmol/L (22-30); Chloride 104 mmol/L (98-107); Estimated Creatinine Clearance 103 ml/min; Glucose 96 mg/dl (70-99); HCG, Serum Qualitative Screen Negative; Potassium 4.2 mmol/L (3.5-5.1); Sodium 139 mmol/L (135-145); Total Bilirubin 0.5 mg/dl (0.2-1.3); Total Protein 7.1 g/dl (6.3-8.2); eGFR > 60.00
[2024-06-21 14:41] LABS: % Basophils 0.2 % (0-2); % Immature Granulocytes 0.2 % (0-0.5); % Lymphocytes 29.2 % (20.5-51.1); % Monocytes 8.6 % (1.7-9.3); % Neutrophils 55.8 % (42.2-75.2); Absolute Eosinophils 0.5 10^3/uL (0-0.7); Absolute Lymphocytes 2.5 10^3/uL (1.2-3.4); Absolute Monocytes 0.8 10^3/uL (0.1-0.6); Absolute Neutrophils 4.9 10^3/uL (1.4-6.5); Nucleated Red Blood Cells % 0 %
[2024-06-21 15:00] VITALS: BP 120/80
[2024-06-21 17:00] VITALS: BP 128/72
[2024-06-21] MEDS: CLEOCIN 50 IV (17:29)
[2024-06-21 18:00] VITALS: BP 128/67
[2024-06-21] MEDS: PHENERGAN 50.5 MG IV (18:35)
[2024-06-21] MEDS: CLEOCIN 300 MG PO (18:35)
[2024-06-21 19:00] VITALS: BP 113/81
== END 2024-06-21 19:25 | disposition home or self-care (01) ==
LOC: EMR 10:52
PROVIDERS: Physician Assistant; EMERGENCY PHYSICIAN Emergency Medicine; FAMILY PHYSICIAN Physician Assistant Medical
DX: L03.211 Cellulitis of face (principal); R59.1 Generalized enlarged lymph nodes; R11.0 Nausea; K50.90 Crohn's disease, unspecified, without complications; K90.0 Celiac disease; K58.9 Irritable bowel syndrome, unspecified; F41.9 Anxiety disorder, unspecified; Z88.1 Allergy status to other antibiotic agents; Z91.012 Allergy to eggs; Z91.018 Allergy to other foods; Z91.013 Allergy to seafood; Z88.8 Allergy status to other drugs, medicaments and biological substances
CPT/HCPCS: 99284; 96361; 96365; 70487; 80053; 83605; 84703; 85025; Q9967

== ENCOUNTER 2024-06-25 03:52 | Observation (INO) | payer OTHER, SELFPAY ==
[2024-06-24 18:36] VITALS: BP 118/79
[2024-06-24 22:35] VITALS: BP 117/91
--- NOTE | 2024-06-24 22:35 | ED.GENMED ---
History of Present Illness
General
Chief Complaint: Allergic Reaction
Source: patient and family
Exam Limitations: none
Time Seen by Provider: 06/24/24 22:06
Nursing documentation reviewed up to this point in time: agreed with
History of Present Illness
History of Present Illness:
Pleasant 29-year-old female who presents to the emergency department with a rash which she states started after being on a recent course of antibiotics. She has had dental infections since April which progressed into cellulitis. She states that
she has been on 35 days of antibiotics. On she noticed some increased swelling on her nasolabial fold. She deferred to coming into . She was started on clindamycin. She then followed up with her oral surgeon who
switched her to Augmentin. She noticed that she developed a rash on her arms chest face inner thighs. This was after her first dose last night. Second dose this morning provided more of a rash so she came into the emergency department at her oral
surgeons request. Patient does have chronic pain and is on opioids chronically. She has had several admissions for antibiotic treatment.
Vital signs are stable. Patient not hypoxic
Nursing note reviewed. I agree with nursing documentation up to this point in time.
Home Meds and allergies reviewed.
NUMBER AND COMPLEXITY OF PROBLEMS ADDRESSED AT THE ENCOUNTER
� Chronic conditions affecting care: Chronic opioids use, celiac, disease Crohn's disease, IBS, multiple surgeries, dental infection
� Acute Exacerbation and/or Progression of Chronic Illness: Dental infection
� Differential Diagnosis includes: Allergic reaction, serum sickness, SJS, TENS
AMOUNT AND/OR COMPLEXITY OF DATA TO BE REVIEWED AND ANALYZED
I performed an independent evaluation of the following and my interpretation is:
EKG:
Pulse Ox: Not Hypoxic
Residential Treatment Specialist: Sinus Rhythm
CT:
X-rays:
Ultrasound:
Laboratory Studies: 8.6 white blood cell, 5.9 eosinophils, sed rate is 41 and elevated, CRP is 6
Other:
Review of other/old records:
Clinical information was obtained by an independent historian:
Prescriptions/Medications Considered but not given:
Further testing considered but not performed:
RISK OF COMPLICATIONS AND/OR MORBIDITY OR MORTALITY OF PATIENT MANAGEMENT
Social determinants of health affecting care: Good Social Support
Discussion with other providers: Spoke with Dr. Mehran Weems, infectious disease who requested that nothing be started tonight. Patient will be admitted to the hospitalist service.
Escalation of care including admission/observation vs risk of discharge considered: After being observed in the emergency department, will be admitted for further observation and treatment
CRITICAL CARE NOTE: Not applicable
Total Time (exclusive of procedures):
Update:
Past History
Past History
ED Past Medical History: Other (Crohn's disease, celiac, IBS, anxiety)
ED Past Surgical History: Orthopedic and Other (Bowel surgery)
Social History
Tobacco: Non-smoker
Alcohol: Occasional
Drug: None
Personal: Other (Engage)
Living: with family
Employment: Employed
Family History
Family History: Other (her dads mother had Juvenile RA, mother has palpitations)
Review of Systems
Review of Systems
Allergies reviewed?: Yes
All Other Systems: ROS reviewed and negative except as documented in HPI and ROS
Constitutional: Reports no symptoms
EENT: Reports no symptoms
Respiratory: Reports no symptoms
Cardiac: Reports no symptoms
ABD/GI: Reports no symptoms
: Reports no symptoms
Musculoskeletal: Reports no symptoms
Skin: Reports rash
Neurological: Reports no symptoms
Endocrine: Reports no symptoms
Hematologic/Lymphatic: Reports no symptoms
Psychiatric: Reports no symptoms
Phy Exam
General Physical Exam
General Presentation: well appearing and no apparent distress
General Habitus: normal
General Mental: alert
General Hydration: appears well hydrated
ENT Exam
ENT Exam: EOMI, pharynx normal, neck supple and normocephalic
Eye Exam
Eye Exam: PERRL, cornea clear and conjunctiva normal
Cardiovascular Exam
Cardiovascular Exam: regular rate/rhythm, no edema, no murmur and normal peripheral pulses
Pulmonary Exam
Pulmonary Exam: lungs clear, no respiratory distress, no rales, no crackles, no rhonchi, no stridor, no wheezing and no cough
Gastrointestinal Exam
Gastrointestinal Exam: normal bowel sounds, non tender, soft, no organomegaly, no pulsatile mass and non distended
Neurological Exam
Neurological Exam: alert, oriented x3, no motor deficits and speech normal
Musculoskeletal Exam
Musculoskeletal Exam: full ROM and no edema
Skin Exam
Skin Exam: erythema, redness, tenderness, warmth and other (Pustular rash on her abdomen, arms and legs)
Psychiatric Exam
Psychiatric Exam: normal mood/affect and anxious
Course
Orders/Labs/Results
Orders:
Orders
06/24/24 18:43
Electrocardiogram (*1) Urgent
Reason for Study: Chest Pain
EKG- Treatment ONCE
06/24/24 22:31
HYDROmorphone [Dilaudid] 0.5 mg IV NOW STA
06/24/24 22:37
Test Result ONCE
06/24/24 23:19
CBC/With ESR Urgent
CRP [C-Reactive Protein] Urgent
Comprehensive Metabolic Panel Urgent
HCG, Serum Qualitative Screen Urgent
Abnormal Lab Results
06/24/24
23:19
RBC 4.19 L 10^6/uL
(4.20-5.40)
Hct 34.3 L %
(37.0-47.0)
Absolute Lymphs (auto) 3.5 H 10^3/uL
(1.2-3.4)
Absolute Monos (auto) 0.7 H 10^3/uL
(0.1-0.6)
ESR 41 H mm/hour
(0-20)
06/24/24 23:19
06/24/24 23:19
Vital Signs
Initial and Last Documented VS:
Initial Vital Signs
Temp Pulse Resp BP Pulse Ox
98.4 F 142 20 118/79 97
06/24/24 18:36 06/24/24 18:36 06/24/24 18:36 06/24/24 18:36 06/24/24 18:36
Last Documented Vital Signs
Temp Pulse Resp BP Pulse Ox
98 F 86 16 115/74 99
06/25/24 00:12 06/25/24 00:12 06/25/24 00:12 06/25/24 00:12 06/25/24 00:12
*Critical Care Note
Total Time (30-74mins, 75-104mins- exclusive of procedures): Not Applicable
ED Attending Note
-
Portions of this chart may have been created with voice recognition software.� Occasional wrong word or��sound alike� substitutions may have occurred due to the inherent limitations of voice recognition software.
Discharge Plan
Departure
Patient Disposition: Admit
Date of Disposition: 06/25/24
Time of Disposition: 01:01
Presentation/result/management discussed w/ accepting MD/DO: Hospitalist
Condition: Fair
Discharge Problem:
Medication reaction, Pustular rash
Prescriptions:
No Action
oxycodone 10 mg Tablet
10 mg PO QID@07,12,17,21
Patient Comments:
05/26/24: last filled 05/15/24 for 150 tablets over 30 days
clonazepam 1 mg Tablet
1 mg PO BID@1130,2300
fexofenadine 180 mg Tablet
360 mg PO HS
Patient Comments:
05/26/24: She gets special 360mg tabs from vice president of engineering.
acetaminophen [Tylenol Extra Strength] 500 mg Tablet
1,000 mg PO Q6HPRN PRN (Reason: mild pain)
famotidine [Pepcid] 20 mg Tablet
10 mg PO HS
ascorbic acid (vitamin C) [Vitamin C] 500 mg Tablet
500 mg PO BID
infliximab [Remicade] 100 mg Recon Soln
7.5 mg IV Q6W
Rx Instructions:
7.5 mg/kg
gabapentin 300 mg Capsule
300 mg PO QID@,,,
hydroxyzine pamoate 25 mg capsule
25 mg PO QID@,,
duloxetine [Cymbalta] 30 mg Capsule,Delayed Release(Dr/Ec)
30 mg PO DAILY
Rx Instructions:
take with 60mg
duloxetine [Cymbalta] 60 mg Capsule,Delayed Release(Dr/Ec)
60 mg PO DAILY
Rx Instructions:
take with 30mg
melatonin 10 mg Tablet
10 mg PO HS@2300
oxycodone [OxyContin] 10 mg Tablet,Oral Only,Ext.Rel.12 Hr
10 mg PO HS@2300
vitamin A 3,000 mcg (10,000 unit) Capsule
3,000 mcg PO HS
therapeutic multivitamin Tablet
1 tab PO HS
Patient Comments:
05/20/24: Patient would like to use their own brand
hydromorphone 4 mg Tablet
4 mg PO Q4HPRN PRN (Reason: severe breakthrough pain)
Patient Comments:
Pt reports 'I took 2 mg so I split it in half'
Visbiome 112.5 billion cell capsule
2 cap PO DAILY Qty: 30 0RF
docusate sodium [Colace] 100 mg Capsule
200 mg PO DAILY
oxycodone 10 mg Tablet
10 mg PO HSPRN PRN (Reason: severe pain)
Patient Comments:
05/26/24: last filled 05/15/24 for 150 tablets over 30 days
Fleet Enema
metronidazole 500 mg Tablet
500 mg PO Q12H Qty: 8 0RF
promethazine 25 mg Tablet
12.5 mg PO Q6HPRN PRN (Reason: nausea and vomiting) Qty: 15 0RF
lidocaine HCl [Lidocaine Viscous] 2 % Solution
10 ml PO QID Qty: 0 0RF
levofloxacin 750 mg Tablet
750 mg PO Q24H Qty: 4 0RF
loperamide [Imodium A-D] 2 mg capsule
2 mg PO Q6H PRN (Reason: loose stool) Qty: 1 0RF
clindamycin HCl 300 mg capsule
300 mg PO Q6H 7 Days Qty: 28 0RF
Referrals:
Nadege Dyson PA [Family Provider] -
Interventions
Interventions:
*Risk Screen - Suicide Last Done: 06/24/24 22:40
*General Assessment Last Done: 06/24/24 22:40
*Neglect/Abuse Screening Last Done: 06/24/24 22:40
*ED COVID-19 Vaccine History Last Done: 06/24/24 22:40
ED- Cardiac Assessment Last Done: 06/24/24 22:40
ED- Pulmonary Assessment Last Done: 06/24/24 22:40
ED-Skin Assessment Last Done: 06/24/24 22:40
Discharge Date and Time
Print Language: BRITISH
[2024-06-24 22:39] VITALS: BMI 27.6
[2024-06-24] MEDS: DILAUDID 0.5 MG IV (23:20)
[2024-06-24 23:30] LABS: % Basophils 0.3 % (0-2); % Eosinophils 5.9 % (0-6); % Immature Granulocytes 0.1 % (0-0.5); % Lymphocytes 40.3 % (20.5-51.1); % Monocytes 8.2 % (1.7-9.3); % Neutrophils 45.2 % (42.2-75.2); Absolute Eosinophils 0.5 10^3/uL (0-0.7); Absolute Lymphocytes 3.5 10^3/uL (1.2-3.4); Absolute Monocytes 0.7 10^3/uL (0.1-0.6); Absolute Neutrophils 3.9 10^3/uL (1.4-6.5); Hematocrit 34.3 % (37.0-47.0); Hemoglobin 12.1 g/dL (12.0-16.0); Mean Corp Hgb Conc. 35.3 g/dL (33.0-37.0); Mean Corpuscular Hgb 28.9 pg (27.0-31.0); Mean Corpuscular Volume 81.9 fL (81.0-99.0); Nucleated Red Blood Cells % 0 %; Platelet Count 264 10^3/uL (130-400); Red Blood Cell Count 4.19 10^6/uL (4.20-5.40); White Blood Cell Count 8.6 10^3/uL (4.8-10.8)
[2024-06-24 23:47] LABS: HCG, Serum Qualitative Screen Negative
[2024-06-24 23:52] LABS: ALT (SGPT) 21 U/L (0-35); AST (SGOT) 30 U/L (14-36); Alkaline Phosphatase 81 U/L (38-126); Blood Urea Nitrogen 11 mg/dl (7-17); Calcium 8.8 mg/dl (8.4-10.2); Carbon Dioxide 24 mmol/L (22-30); Chloride 104 mmol/L (98-107); Estimated Creatinine Clearance > 125 ml/min; Glucose 88 mg/dl (70-99); Potassium 3.9 mmol/L (3.5-5.1); Sodium 141 mmol/L (135-145); Total Bilirubin 0.4 mg/dl (0.2-1.3); Total Protein 7.6 g/dl (6.3-8.2); eGFR > 60.00
[2024-06-25] VITALS (8 sets, daily range): BP systolic 104–125; BP diastolic 62–80; BMI 26.5
[2024-06-25 00:35] LABS: Erythrocyte Sed Rate 41 mm/hour (0-20)
--- NOTE | 2024-06-25 02:55 | HPS.HSE ---
Family Physician
-
Family Physician: Nadege Dyson
Chief Complaint
-
Rash
History of Present Illness
Patient is a 29y F with PMH significant for Crohn's disease, chronic pain syndrome and recent odontogenic infection who presents to ED complaining of diffuse, red, itchy rash. Patient was hospitalized at multiple times from 04/26 through 05/30
for symptoms relating to dental abscess / infection. She was treated with multiple antibiotic regimens and ultimately did undergo tooth extraction as an outpatient with Dr. Cabrales.
After tooth extraction, patient developed redness and discomfort of the L side of her face. She was evaluated here in the ED on 06/20 - 06/21 and started on clindamycin for presumed cellulitis.
She spoke with her [facility] physician via phone on Wednesday and the abx was changed to Augmentin.
Patient states that 24 hours later she noted a red, itchy rash on the trunk / abdomen. This has since spread to include the thighs, arms, face and scalp.
She took two dose total of Augmentin - last dose was Wednesday AM.
She presented to the ED this evening for further evaluation and treatment.
Medical History
Past Medical History
Past Medical History: Reports Other
Additional Past Medical History:
Crohn's disease on Remicade
Inflammatory Polyarthropathy
Chronic Pain Syndrome
Celiac
Anxiety
Past Surgical History: Reports Other
Additional Past Surgical History:
Heel deformities removed x 2 wisdom teeth extraction
Robotic rectopexy for prolapsed rectum age 26
Social History
Tobacco: Non-smoker
Alcohol: None
Drug: None
Personal: Other (Engaged)
Living: With Family
Family History
Family History: Other (Mother history of thyroid disease, depression, pancreatic enzyme deficiency, sister type I diabetic, asthma, dad hypertension, hyperlipidemia, brother asked Buerger's autism spectrum)
Allergies / Home Medications
Allergies reflects when Allergies were last updated in [employer].
Home Medications with original date entered in [employer]
Allergy/Medication List:
Allergies
Allergy/AdvReac Type Severity Reaction Status Date / Time
egg Allergy Anaphylaxis Verified 06/25/24 02:48
gluten Allergy stomach Verified 06/25/24 02:48
pain
prochlorperazine Allergy Akathesia Verified 06/25/24 02:48
shrimp Allergy Unknown Verified 06/25/24 02:48
tree nut Allergy Hives Verified 06/25/24 02:48
piperacillin [From Zosyn] AdvReac Severe Severe Verified 06/25/24 02:48
arthritic
pain
tazobactam [From Zosyn] AdvReac Severe Severe Verified 06/25/24 02:48
arthritic
pain
Home Medications
oxycodone 10 mg tablet 10 mg PO QID@07,12,17,21 02/12/23
acetaminophen 500 mg tablet (Tylenol Extra Strength) 1,000 mg PO Q6HPRN PRN mild pain 01/15/24
ascorbic acid (vitamin C) 500 mg tablet (Vitamin C) 500 mg PO BID Supplement 01/15/24
clonazepam 1 mg tablet 1 mg PO BID@1130,2300 Mental Health/Anxiety 01/15/24
duloxetine 30 mg capsule,delayed release (Cymbalta) 30 mg PO DAILY mental health 01/15/24
duloxetine 60 mg capsule,delayed release (Cymbalta) 60 mg PO DAILY mental health 01/15/24
famotidine 20 mg tablet (Pepcid) 10 mg PO HS Gastrointestinal Issue 01/15/24
fexofenadine 180 mg tablet 360 mg PO HS Allergies 01/15/24
gabapentin 300 mg capsule 300 mg PO QID@,,, Neurological Condition 01/15/24
hydroxyzine pamoate 25 mg capsule 25 mg PO QID@,,, Mental Health/Anxiety 01/15/24
infliximab 100 mg intravenous solution (Remicade) 7.5 mg IV Q6W Crohn's disease 01/15/24
melatonin 10 mg tablet 10 mg PO HS@2300 Sleep 01/15/24
oxycodone 10 mg tablet,crush resistant,extended release 12 hr (OxyContin) 10 mg PO HS@2300 chronic pain 01/15/24
vitamin A 3,000 mcg (10,000 unit) capsule 3,000 mcg PO HS Supplement 02/26/24
hydromorphone 4 mg tablet 4 mg PO Q4HPRN PRN severe breakthrough pain 05/09/24
therapeutic multivitamin 1 tab PO HS Supplement 05/09/24
Lactobac no.2-Bifidobac no.1-S. thermo 112.5 billion cell capsule (Visbiome) 2 cap PO DAILY #30 caps 05/14/24
docusate sodium 100 mg capsule (Colace) 200 mg PO DAILY Constipation 05/20/24
oxycodone 10 mg tablet 10 mg PO HSPRN PRN severe pain 05/26/24
lidocaine HCl 2 % mucosal solution (Lidocaine Viscous) 10 ml PO QID #0 mL 05/30/24
loperamide 2 mg capsule (Imodium A-D) 2 mg PO Q6H PRN loose stool #1 cap 05/30/24
promethazine 25 mg tablet 12.5 mg (1/2 x 25 mg) PO Q6HPRN PRN nausea and vomiting #15 tabs 05/30/24
Review of Systems
-
History Source: Patient
A 12 point ROS was completed and negative except as noted: Yes
Constitutional: Reports Fever and Chills
EENT: Reports Sore Throat
Respiratory: Denies Cough or Trouble Breathing
Cardiac: Reports Palpitations; Denies Chest Pain
Abdomen/GI: Denies Abdominal Pain, Nausea, Vomiting or Diarrhea
: Denies Dysuria or Frequency
Musculoskeletal: Denies Joint Pain or Edema
Skin: Reports Itching and Rash
Neurological: Denies Dizzy or Headache
Psych: Reports Anxiety; Denies Depression
Physical Exam
Vital Signs
Vital Signs
Temp Pulse Resp BP Pulse Ox
98 F 104 20 115/72 99
06/25/24 00:12 06/25/24 02:48 06/25/24 02:48 06/25/24 02:30 06/25/24 02:48
Physical Exam
General: Other (29y F in mild distress due to itching / pain.)
HEENT: Moist mucous membranes and Other (mild facial erythema, no induration)
Respiratory: Clear; No Wheezes, Rales or Rhonchi
Cardiac: S1/S2 and Regular Rhythm; No Murmur
GI: Soft, Non Tender, Non Distended and Normal Bowel Sounds
Musculoskeletal: No Clubbing, No Cyanosis and No Edema
Skin: Other (Maculopapular rash over the trunk > thighs > arms and face. Erythematous / pustular lesions.)
Neuro: AO x 3
Laboratory Results
-
06/24/24 23:19
06/24/24 23:19
Laboratory Results
Total Bilirubin 0.4 mg/dl (0.2-1.3) 06/24/24 23:19
AST 30 U/L (14-36) 06/24/24 23:19
ALT 21 U/L (0-35) 06/24/24 23:19
Alkaline Phosphatase 81 U/L (38-126) 06/24/24 23:19
Impression/Plan
-
A/P: Patient is a 29y F with PMH significant for Crohn's disease, chronic pain syndrome and recent odontogenic infection who presents to ED complaining of new rash.
Rash
- Observe overnight for further evaluation and treatment.
- Suspect that this is drug rash secondary to Augmentin given timing / onset.
- Hold any antibiotics for now.
- Supportive care, Benadryl, etc.
- ID evaluation for additional recommendations.
Recent Odontogenic Infection
Possible Facial Cellulitis
- Patient is afebrile without leukocytosis or L shift.
- Observe off of further abx as noted above.
- Monitor for new fever, change in symptoms, etc.
Crohn's Disease
- Stable. Maintained on Remicade as an outpatient.
Inflammatory Polyarthropathy
Chronic Pain Syndrome secondary to the above
- Will continue current / chronic pain control regimen as per usual.
- Follow-up with pain management as an outpatient.
Anxiety / Depression
- Patient is anxious-appearing in the ED.
- Continue current psychotropic med regimen including clonazepam, etc.
DVT Prophylaxis: SCDs
Code Status: Full
[2024-06-25 05:56] LABS: Hematocrit 34.5 % (37.0-47.0); Hemoglobin 12.1 g/dL (12.0-16.0); Mean Corp Hgb Conc. 35.1 g/dL (33.0-37.0); Mean Corpuscular Hgb 28.9 pg (27.0-31.0); Mean Corpuscular Volume 82.3 fL (81.0-99.0); Platelet Count 283 10^3/uL (130-400); Red Blood Cell Count 4.19 10^6/uL (4.20-5.40); Red Cell Dist. Width 13.1 % (11.5-14.5); White Blood Cell Count 8.6 10^3/uL (4.8-10.8)
[2024-06-25 06:14] LABS: Blood Urea Nitrogen 11 mg/dl (7-17); Calcium 8.8 mg/dl (8.4-10.2); Carbon Dioxide 28 mmol/L (22-30); Chloride 104 mmol/L (98-107); Estimated Creatinine Clearance 103 ml/min; Glucose 90 mg/dl (70-99); Potassium 4.2 mmol/L (3.5-5.1); Sodium 140 mmol/L (135-145); eGFR > 60.00
--- NOTE | 2024-06-25 06:18 | PTCARENOTE ---
Pt received on unit approximately 0530 AM on 06/25/24. Pt AAOx3, able to walk from stretcher to bed. VSS. Pt oriented to room and able to make needs known.
[2024-06-25] MEDS: DILAUDID 0.5 MG IV (06:29)
[2024-06-25] MEDS: CYMBALTA DELAYED RELEASE 60 MG PO (08:57)
[2024-06-25] MEDS: VISBIOME 2 CAP PO (08:57)
[2024-06-25] MEDS: NEURONTIN 300 MG PO ×4 (08:57→20:36)
[2024-06-25] MEDS: CYMBALTA DELAYED RELEASE 30 MG PO (08:57)
[2024-06-25] MEDS: ROXICODONE 10 MG PO ×4 (09:00→20:31)
[2024-06-25] MEDS: ATARAX 25 MG PO ×4 (09:00→20:31)
[2024-06-25] MEDS: KLONOPIN 1 MG PO (11:30)
--- NOTE | 2024-06-25 11:33 | W.PN.HOSP.TC ---
Addendum entered and electronically signed by Thalia Ray MD 06/25/24 17:37:
total DC time 40 min
Original Note:
Today's Communication/Plan
-
see A/P
Assessment / Plan
Assessment / Plan
HPI: 29 yo F with PMH significant for Crohn's disease, chronic pain syndrome, and recent odontogenic infection; who presented to ED complaining of diffuse, red, itchy rash. Patient was hospitalized at multiple times from 04/26 through 05/30 for
symptoms relating to dental abscess / infection. She was treated with multiple antibiotic regimens and ultimately did undergo tooth extraction as an outpatient with Dr. Cabrales.
After tooth extraction, patient developed redness and discomfort of the L side of her face. She was evaluated here in the ED on 06/20 - 06/21 and started on clindamycin for presumed cellulitis.
She spoke with her [facility] physician via phone on Wednesday and the abx was changed to Augmentin.
Patient states that 24 hours later she noted a red, itchy rash on the trunk / abdomen. This has since spread to include the thighs, arms, face and scalp.
She took two dose total of Augmentin - last dose was Sunday 06/24 AM.
She presented to the ED in the evening for further evaluation and treatment.
A/P:
# Chest wall rash, morbilliform appearing, suspect drug reaction rash secondary to Augmentin given timing / onset.
Hold any antibiotics for now.
Cont supportive care with Benadryl 25 mg PO Q6H ATC, Pepcid 20 mg IV BID, add Prednisone 40 mg daily
ID evaluation for additional recommendations.
Wound Care CS
# Recent Odontogenic Infection
Patient is afebrile without leukocytosis or L shift.
CRP negative at 6 which r/o infectious process
Observe off of further abx
Monitor for new fever, change in symptoms, etc.
ID eval as above
# Crohn's Disease, Stable.
Maintained on Remicade as an outpatient.
# Inflammatory Polyarthropathy
# Chronic Pain Syndrome with opiate dependence
Continue chronic pain control regimen as per usual.
Follow-up with pain management as an outpatient.
# Anxiety / Depression
Continue current psychotropic med regimen including clonazepam, etc.
DVT Prophylaxis: SCDs
Code Status: Full
DW fiance at bedside
DW ID
Anticipated Discharge: 24 - 48 hours
Subjective/Interval History
-
Date of Service: June 25, 2024
Objective Data
-
Labs:
Laboratory Results
06/24/24 06/25/24
23:19 05:20
WBC 8.6
Hgb 12.1
Hct 34.5 L
Plt Count 283
Sodium 141 140
Potassium 3.9 4.2
Chloride 104 104
Carbon Dioxide 24 28
BUN 11 11
Creatinine 0.6 0.7
Glucose 88 90
Calcium 8.8 8.8
Total Bilirubin 0.4
AST 30
ALT 21
Alkaline Phosphatase 81
Vital Signs:
Vital Signs
Temp Pulse Resp BP Pulse Ox
36.4 C 87 16 104/62 95
06/25/24 07:00 06/25/24 07:00 06/25/24 07:00 06/25/24 07:00 06/25/24 09:30
Review of Systems
-
History Source: Patient
Skin: Reports Rash
Physical Exam
-
General: Well Developed, Well Nourished, No Apparent Distress, Comfortable and Conversant
HEENT: Normocephalic and Atraumatic
Respiratory: Clear to Auscultation and Non Labored Respirations; Negative Wheezes, Crackles or Accessory Resp Muscle Use
Cardiac: Regular Rhythm and S1/S2
GI: Soft, Nontender, Nondistended and Normal Bowel Sounds
Musculoskeletal: No Edema
Skin: Warm, Dry and Rash (chest wall, mobiliform appearing )
Neuro: Awake, Alert and Oriented
Psych: Calm and Intact Judgement/Insight
Data Reviewed
-
Labs: Labs Reviewed by me
[2024-06-25] MEDS: BENADRYL 25 MG PO ×2 (12:39→17:50)
[2024-06-25] MEDS: NSS (PRESERVATIVE FREE) 8 ML IV (12:39)
[2024-06-25] MEDS: PEPCID 20 MG IV (12:39)
[2024-06-25] MEDS: PHENERGAN 12.5 MG PO (13:16)
--- NOTE | 2024-06-25 14:38 | CON.ID ---
Consultation
-
Date/Time Consultation Requested: 06/25/2024 0456
Date/Time Consultation Performed: 06/25/2024 1430
Requesting Provider: Dr. Bowling
Performing Provider: Dr. Weems
Reason for Consultation: Drug rash
Chief Complaint / Past History
History of Present Illness
Saumya Olivia is a 29-year-old female being evaluated at the request of Dr. Lala in regards to drug rash. History is obtained from chart review, along with patient interview.
The patient is a significant history of odontologic infection, and reports that she had infected tooth pulled approximately 4 weeks ago and a bone graft was placed. She had been on a course of antibiotics through 06/04, and did well until 06/20 when
she noted that she had some slight swelling in the left nasolabial fold area. She was seen in the ER here at [facility] and prescribed clindamycin, which she took from 06/21 until 06/23 when it was changed to Augmentin by her OMFS. She
reports yesterday afternoon she developed a rash on her body, along with reported pruritus. No history of shortness of breath. Because of the rash, she presented to the emergency room for further evaluation.
The case was discussed with the ER last evening. I advised the cessation of antibiotics until the patient could be evaluated.
At today's visit, she notes that the rash somewhat persists although has not particularly changed. She reports that she has had some chills and sweats over the past several days, and notes generalized malaise and weakness. She has been afebrile
since admission.
Past History
Additional Past Medical History:
Crohn's disease on Remicade
Celiac disease
Irritable bowel syndrome
anxiety
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
Allergy History:
egg Allergy (Verified 06/25/24 02:48)
Anaphylaxis
gluten Allergy (Verified 06/25/24 02:48)
stomach pain
prochlorperazine Allergy (Verified 06/25/24 02:48)
Akathesia
shrimp Allergy (Verified 06/25/24 02:48)
Unknown
tree nut Allergy (Verified 06/25/24 02:48)
Hives
piperacillin [From Zosyn] Adverse Reaction (Severe, Verified 06/25/24 02:48)
Severe arthritic pain
tazobactam [From Zosyn] Adverse Reaction (Severe, Verified 06/25/24 02:48)
Severe arthritic pain
Medications Reviewed: Yes
Current Antibiotics:
None
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
Social History
Tobacco: Non-Smoker
Alcohol: None
Drug: None
Personal: Single
Living: With Family
Employment: Employed
Family History
Family History: Not Pertinent
Review of Systems
Vital Signs
Temp Pulse Resp BP Pulse Ox
97.5 F 87 16 104/62 95
06/25/24 07:00 06/25/24 07:00 06/25/24 07:00 06/25/24 07:00 06/25/24 09:30
Physical Exam
Physical Exam
Constitutional: No Acute Distress, Well Developed, Comfortable and Non-toxic
Head: Normocephalic
Eyes: Pupils Equal, Pupils Round, No Conjunctival Hemorrhage and Sclera Anicteric
Oral: No Thrush and No Ulcers
Cardiovascular: Regular Rate and S1/S2; Negative S3/S4
Pulmonary: Clear; Negative Wheezes, Rales or Rhonchi
Gastrointestinal: Soft, Non Tender and Non Distended
Skin: Rash (Papular rash noted along the inferior breast line. Several papules noted over rest of the body. Rash not especially erythematous or macular.)
Neurological: Awake and Alert
Psychological: Calm
.
Lab / Diagnostic Study Results
06/25/24 05:20
06/25/24 05:20
Abs Immat Gran (auto) 0.0 10^3/uL (0-0.05) 06/24/24 23:19
Absolute Neuts (auto) 3.9 10^3/uL (1.4-6.5) 06/24/24 23:19
Absolute Lymphs (auto) 3.5 10^3/uL (1.2-3.4) H 06/24/24 23:19
Absolute Monos (auto) 0.7 10^3/uL (0.1-0.6) H 06/24/24 23:19
Absolute Basos (auto) 0.0 10^3/uL (0-0.2) 06/24/24 23:19
Immature Gran % 0.1 % (0-0.5) 06/24/24 23:19
Neutrophils % 45.2 % (42.2-75.2) 06/24/24 23:19
Lymphocytes % 40.3 % (20.5-51.1) 06/24/24 23:19
Monocytes % 8.2 % (1.7-9.3) 06/24/24 23:19
Eosinophils % 5.9 % (0-6) 06/24/24 23:19
Basophils % 0.3 % (0-2) 06/24/24 23:19
ESR 41 mm/hour (0-20) H 06/24/24 23:19
C-Reactive Protein 6.00 mg/L (0.0-10.00) 06/24/24 23:19
Assessment / Plan
Rash.
-At present, not entirely consistent with a drug rash that I would expect to see from initiation of amoxicillin. Differential diagnosis includes cutaneous candidiasis or Malassezia folliculitis.
History of left jaw dental extraction with bone graft in place.
Recommendations:
Would place back on clindamycin 300 mg QID with the addition of doxycycline 100 mg BID, until patient can be seen by OMFS as an outpatient.
Drug interactions checked at patient request, and doxycycline does not appear to interact with any of the medications that she is currently on.
Would not expect rash to get worse, but advised to return to ER should worsening be noted.
Care Review
Plan reviewed with: Physician (Hospitalist)
[2024-06-25] MEDS: DILAUDID 4 MG PO (14:56)
[2024-06-25] MEDS: VIBRAMYCIN 100 MG PO ×2 (15:24→20:31)
--- NOTE | 2024-06-25 15:36 | CM ---
Patient seen at bedside.
IA Completed - OBS form explained & signed. In chart
Lives at home with parents & fiance in a 2 story home, 1 step to enter, flight to second floor
Denies DME
PLOF: independent, does not drive
denies HH/Rehab
no needs anticipated
PCP: Huyen Dyson
Pharmacy: [facility], [id number] [facility]
PLAN: Home, no needs anticipated
--- NOTE | 2024-06-25 17:23 | W.DCSUMMARY ---
Discharge Summary
Discharge Data
Date of Admission: 06/25/24
Date of Discharge: 06/25/24
-
Pending Results: No
Hospital Course
Principal Diagnosis:
Chest wall rash, morbilliform appearing, possible cutaneous candidiasis or Malassezia folliculitis
Chronic Diagnoses:�
Recent Odontogenic Infection
Crohn's Disease, Stable. Maintained on Remicade as an outpatient.
Inflammatory Polyarthropathy
Chronic Pain Syndrome with opiate dependence
Anxiety / Depression
Consultations:�
Infectious disease
Procedures:�
None
Clinical course:�
This is a 29-year-old female, with past medical history as stated above, who presented with chest wall morbilliform rash.
Problem 1:
Chest wall rash, morbilliform appearing, possible cutaneous candidiasis or Malassezia folliculitis per ID.
It was felt less likely to be drug reaction rash per ID.
She can hold off further prednisone per ID, and continue clindamycin 300 mg QID with doxycycline 100 mg BID, prescriptions were sent for 10 days to her pharmacy.
Of note, her CRP level was negative at 6
As for the rest of her medical problems, they were stable during her hospital stay.
Discharge Plan
-
Patient Disposition: Home (Routine Discharge)
Discharge Diagnosis/Procedures: Chest wall rash, morbilliform appearing, possible cutaneous candidiasis or Malassezia folliculitis
Condition: Good
Diet: As tolerated
Activity: As tolerated
Driving Restrictions: As prior to admission
Referrals:
Nadege Dyson PA [Family Provider] - in less than 1 week
Additional Discharge Medication Instructions: Continue clindamycin 300 mg every 6 hours and doxycycline 100 mg every 12 hours for 10 more days
Prescriptions:
New
clindamycin HCl 150 mg Capsule
300 mg PO Q6 10 Days Qty: 80 0RF
doxycycline hyclate 100 mg Capsule
100 mg PO Q12 10 Days Qty: 20 0RF
Continued
oxycodone 10 mg Tablet
10 mg PO QID@07,12,17,21
Patient Comments:
05/26/24: last filled 05/15/24 for 150 tablets over 30 days
clonazepam 1 mg Tablet
1 mg PO BID@1130,2300
fexofenadine 180 mg Tablet
360 mg PO HS
Patient Comments:
05/26/24: She gets special 360mg tabs from [facility].
acetaminophen [Tylenol Extra Strength] 500 mg Tablet
1,000 mg PO Q6HPRN PRN (Reason: mild pain)
famotidine [Pepcid] 20 mg Tablet
10 mg PO HS
ascorbic acid (vitamin C) [Vitamin C] 500 mg Tablet
500 mg PO BID
infliximab [Remicade] 100 mg Recon Soln
7.5 mg IV Q6W
Rx Instructions:
7.5 mg/kg
gabapentin 300 mg Capsule
300 mg PO QID@,,,
hydroxyzine pamoate 25 mg capsule
25 mg PO QID@,,,
duloxetine [Cymbalta] 30 mg Capsule,Delayed Release(Dr/Ec)
30 mg PO DAILY
Rx Instructions:
take with 60mg
duloxetine [Cymbalta] 60 mg Capsule,Delayed Release(Dr/Ec)
60 mg PO DAILY
Rx Instructions:
take with 30mg
melatonin 10 mg Tablet
10 mg PO HS@2300
oxycodone [OxyContin] 10 mg Tablet,Oral Only,Ext.Rel.12 Hr
10 mg PO HS@2300
vitamin A 3,000 mcg (10,000 unit) Capsule
3,000 mcg PO HS
therapeutic multivitamin Tablet
1 tab PO HS
Patient Comments:
05/20/24: Patient would like to use their own brand
hydromorphone 4 mg Tablet
4 mg PO Q4HPRN PRN (Reason: severe breakthrough pain)
Patient Comments:
Pt reports 'I took 2 mg so I split it in half'
Visbiome 112.5 billion cell capsule
2 cap PO DAILY Qty: 30 0RF
docusate sodium [Colace] 100 mg Capsule
200 mg PO DAILY
oxycodone 10 mg Tablet
10 mg PO HSPRN PRN (Reason: severe pain)
Patient Comments:
05/26/24: last filled 05/15/24 for 150 tablets over 30 days
promethazine 25 mg Tablet
12.5 mg PO Q6HPRN PRN (Reason: nausea and vomiting) Qty: 15 0RF
lidocaine HCl [Lidocaine Viscous] 2 % Solution
10 ml PO QID Qty: 0 0RF
loperamide [Imodium A-D] 2 mg capsule
2 mg PO Q6H PRN (Reason: loose stool) Qty: 1 0RF
Discharge Orders:
Discharge Patient (As Directed); Ordered 06/25/24
Ordered By: Thalia Ray
Discharge Date and Time
Print Language: FRISIAN
[2024-06-25] MEDS: CLEOCIN 300 MG PO (17:50)
[2024-06-25] MEDS: PEPCID IV (20:32)
--- NOTE | 2024-06-25 20:38 | PTCARENOTE ---
Pt's meds returned from pharmacy prior to discharge. Pt states her oxycodone and oxycontin were missing and that she is required to file a police report. radiation officer notified by pt and present in room taking report. Phone number given to pt
for Jammie James, Director of [facility] and Sara Thornton, Nurse dealership manager, to follow up from home.
--- NOTE | 2024-06-26 03:33 | PTCARENOTE ---
Patient received in room at change of shift. Reported during shift report that patient was calling police to report stolen medications. Police arrived and spoke with patient and took statements from RNs. Patient declined vitals prior to discharge.
Patient received 20:00 medications and transported via wheelchair by PCT to [facility] car outside of hospital building.
== END 2024-06-25 20:53 | disposition home or self-care (01) ==
LOC: 4 WEST ACU 03:52
PROVIDERS: ADMITTING PHYSICIAN Hospitalist; ATTENDING PHYSICIAN Internal Medicine; CONSULT PHYSICIAN Internal Medicine Infectious Disease; EMERGENCY PHYSICIAN Student in an Organized Health Care Education/Training Program; FAMILY PHYSICIAN Physician Assistant Medical
DX: R21 Rash and other nonspecific skin eruption (principal); K50.90 Crohn's disease, unspecified, without complications; G89.4 Chronic pain syndrome; M06.4 Inflammatory polyarthropathy; F41.9 Anxiety disorder, unspecified; F11.20 Opioid dependence, uncomplicated; K90.0 Celiac disease; F32.A Depression, unspecified; Z79.52 Long term (current) use of systemic steroids; Z79.899 Other long term (current) drug therapy
CPT/HCPCS: 80048; 80053; 84703; 85025; 85027; 85652; 86140; 93005; 96374; 99284; G0378

== ENCOUNTER 2024-06-29 14:31 | Emergency (ER) | payer OTHER, SELFPAY ==
[2024-06-29 14:46] VITALS: BP 125/81
[2024-06-29 16:47] VITALS: BP 112/73
[2024-06-29 17:40] LABS: % Basophils 0.3 % (0-2); % Eosinophils 2.5 % (0-6); % Immature Granulocytes 0.3 % (0-0.5); % Lymphocytes 36.6 % (20.5-51.1); % Monocytes 6.2 % (1.7-9.3); % Neutrophils 54.1 % (42.2-75.2); Absolute Eosinophils 0.3 10^3/uL (0-0.7); Absolute Lymphocytes 3.7 10^3/uL (1.2-3.4); Absolute Monocytes 0.6 10^3/uL (0.1-0.6); Absolute Neutrophils 5.5 10^3/uL (1.4-6.5); Hematocrit 39.4 % (37.0-47.0); Hemoglobin 13.4 g/dL (12.0-16.0); Mean Corpuscular Hgb 28.4 pg (27.0-31.0); Mean Corpuscular Volume 83.5 fL (81.0-99.0); Mean Platelet Volume 10.2 fL (7.4-10.4); Nucleated Red Blood Cells % 0 %; Platelet Count 291 10^3/uL (130-400); Red Blood Cell Count 4.72 10^6/uL (4.20-5.40); Red Cell Dist. Width 12.9 % (11.5-14.5); White Blood Cell Count 10.1 10^3/uL (4.8-10.8)
[2024-06-29 17:45] VITALS: BMI 26.2
[2024-06-29 17:50] VITALS: BP 121/80
[2024-06-29 17:57] LABS: ALT (SGPT) 24 U/L (0-35); AST (SGOT) 34 U/L (14-36); Albumin 4.4 g/dl (3.5-5.0); Alkaline Phosphatase 85 U/L (38-126); Blood Urea Nitrogen 17 mg/dl (7-17); Calcium 9.1 mg/dl (8.4-10.2); Carbon Dioxide 26 mmol/L (22-30); Chloride 101 mmol/L (98-107); Estimated Creatinine Clearance 103 ml/min; Glucose 91 mg/dl (70-99); Potassium 3.8 mmol/L (3.5-5.1); Sodium 137 mmol/L (135-145); Total Bilirubin 0.5 mg/dl (0.2-1.3); Total Protein 8.4 g/dl (6.3-8.2); eGFR > 60.00
[2024-06-29 19:04] VITALS: BP 106/72
[2024-06-29 20:00] VITALS: BP 111/85
[2024-06-29] MEDS: DELTASONE 20 MG PO (20:10)
--- NOTE | 2024-06-29 20:11 | ED.GENMED ---
History of Present Illness
General
Chief Complaint: Skin Problem
Source: patient and records
Exam Limitations: none
Time Seen by Provider: 06/29/24 18:22
Nursing documentation reviewed up to this point in time: agreed with
History of Present Illness
History of Present Illness:
29-year-old female with a past medical history of IBS, Crohn's disease, recent complicated dental surgery presents to the emergency department for evaluation of rash. Patient was just seen here [facility] for facial swelling was started on
clindamycin for dental infection. 2 days later she followed up with her oral surgeon and was switched to Augmentin and started taking Augmentin 06/23. Shortly thereafter she developed a morbilliform rash which was pruritic scattered over her
entire body. She was seen in this emergency room 06/25 and was admitted overnight and seen by infectious disease. They felt that symptoms were not from drug rash, more likely a fungal rash. She was switched to combination of antibiotics to cover
her for oral infection told to continue antibiotics until she sees oral surgeon and referred to dermatology for outpatient follow-up. She saw her oral surgeon and has been off antibiotics for the past few days but rash has been worsening. She says
rash is mostly in the upper abdomen has progressed a bit to the low back, into the inguinal region and a few spots on her legs as well as the back of her neck. She denies any oral lesions. No conjunctivitis. Denies fever. She did see a
events solutions consultant a few days ago in follow-up and had a punch biopsy done but does not have the results of this. She says she was told to go to the ER if symptoms were worsening and so she came here.
Past History
Past History
ED Past Medical History: Other (Crohn's disease, celiac, IBS, anxiety)
ED Past Surgical History: Orthopedic and Other (Bowel surgery)
Social History
Tobacco: Non-smoker
Alcohol: Occasional
Drug: None
Personal: Other (Engage)
Living: with family
Employment: Employed
Family History
Family History: Other (her dads mother had Juvenile RA, mother has palpitations)
Review of Systems
Review of Systems
All Other Systems: ROS reviewed and negative except as documented in HPI and ROS
Constitutional: Denies fever
Respiratory: Denies trouble breathing
Cardiac: Denies chest pain
ABD/GI: Denies abdominal pain
: Denies flank pain
Musculoskeletal: Denies neck pain or back pain
Skin: Reports itching and rash
Neurological: Denies headache
Phy Exam
Physical Exam
Physical Exam:
General: Awake, alert, oriented x3; no acute distress
Head: Normocephalic, atraumatic
Eyes: Conjunctiva normal, EOMI, sclera anicteric
Throat: Airway intact, handling secretions, no oral lesions
Neck: Trachea midline
Lungs: Breathing comfortably no distress
Heart: Regular rate
Abd: Soft, non distended, nontender; punch biopsy site right upper abdomen
Neuro: No gross deficits
Skin: Patient has papular rash along the upper abdomen/inferior breast line also has some papules on back of the neck, medial thighs, low back�no pustules, no erythema or confluence of the rash, no petechiae
Extremities: Warm well-perfused
Scores
Heart Failure Risk
Heart Failure Risk Score: Not Applicable
Heart Score for Chest Pain Patients
STEMI patient?: Not applicable
Withdrawal Assessment of Alcohol
Withdrawal Assessment Completed?: Not applicable
Course
Orders/Labs/Results
Orders:
Orders
06/29/24 17:27
Complete Blood Count/With Diff Urgent
Comprehensive Metabolic Panel Urgent
06/29/24 20:00
Prednisone [Deltasone] 20 mg PO NOW STA
06/29/24 20:12
KATY Prep Urgent
DESIRE Source: Abdomen
Specimen Description:
Date Specimen was Collected: 06/29/24
Time Specimen was Collected: 20:06
Abnormal Lab Results
06/29/24
17:27
Absolute Lymphs (auto) 3.7 H 10^3/uL
(1.2-3.4)
Total Protein 8.4 H g/dl
(6.3-8.2)
06/29/24 17:27
06/29/24 17:27
Vital Signs
Initial and Last Documented VS:
Initial Vital Signs
Temp Pulse Resp BP Pulse Ox
36.7 C 145 18 125/81 96
06/29/24 14:46 06/29/24 14:46 06/29/24 14:46 06/29/24 14:46 06/29/24 14:46
Last Documented Vital Signs
Temp Pulse Resp BP Pulse Ox
37.0 C 104 20 111/85 95
06/29/24 17:16 06/29/24 20:00 06/29/24 16:47 06/29/24 20:00 06/29/24 16:47
MDM/Problems Addressed
Differential Diagnosis Includes:
Allergic dermatitis/contact dermatitis, tinea corporis/fungal rash, drug rash less likely
MDM/Problems Addressed:
29-year-old female presents with persistent pruritic rash as described above. [place] to be fungal by infectious disease during recent hospitalization. She did see a events solutions consultant had a punch biopsy done but results not back yet. She had been on
antibiotics but these have been discontinued and rash has not resolved. I did call dermatology office where patient was seen ([facility] [place]) and I was able to discuss with the physicians advertising sales assistant who saw her. They felt
that it was also likely to be fungal but were holding until results of biopsy. Will plan to treat with topical antifungal. Can trial short taper of steroids as well. Sent KATY prep out of ER and patient will follow-up on punch biopsy from
events solutions consultant. No clear indication for hospitalization at this point in time. Patient is comfortable with this plan. All questions answered.
*Pulse Oximetry
Patient hypoxic: no
*Critical Care Note
Total Time (30-74mins, 75-104mins- exclusive of procedures): Not Applicable
Patient Management
Discussion with other providers: Director Of Nuclear Medicine (Discussed with dermatology PA who saw patient)
ED Attending Note
-
Portions of this chart may have been created with voice recognition software.� Occasional wrong word or��sound alike� substitutions may have occurred due to the inherent limitations of voice recognition software.
Discharge Plan
Departure
Patient Disposition: Home (Routine Discharge)
Date of Disposition: 06/29/24
Time of Disposition: 20:00
Patient with high blood pressure during this ER visit?: No
Discharge Problem:
Rash
Instructions: Skin Rash (DC)
Prescriptions:
New
prednisone 10 mg tablet
10 mg PO DAILY Qty: 9 0RF
Rx Instructions:
20mg x3 days, 10mg x3 days
clotrimazole 1 % cream
1 applic topical BID 28 Days Qty: 45 0RF
No Action
oxycodone 10 mg Tablet
10 mg PO QID@07,12,17,21
Patient Comments:
05/26/24: last filled 05/15/24 for 150 tablets over 30 days
clonazepam 1 mg Tablet
1 mg PO BID@1130,2300
fexofenadine 180 mg Tablet
360 mg PO HS
Patient Comments:
05/26/24: She gets special 360mg tabs from lube attendant.
acetaminophen [Tylenol Extra Strength] 500 mg Tablet
1,000 mg PO Q6HPRN PRN (Reason: mild pain)
famotidine [Pepcid] 20 mg Tablet
10 mg PO HS
ascorbic acid (vitamin C) [Vitamin C] 500 mg Tablet
500 mg PO BID
infliximab [Remicade] 100 mg Recon Soln
7.5 mg IV Q6W
Rx Instructions:
7.5 mg/kg
gabapentin 300 mg Capsule
300 mg PO QID@08,13,18,22
hydroxyzine pamoate 25 mg capsule
25 mg PO QID@
duloxetine [Cymbalta] 30 mg Capsule,Delayed Release(Dr/Ec)
30 mg PO DAILY
Rx Instructions:
take with 60mg
duloxetine [Cymbalta] 60 mg Capsule,Delayed Release(Dr/Ec)
60 mg PO DAILY
Rx Instructions:
take with 30mg
melatonin 10 mg Tablet
10 mg PO HS@2300
oxycodone [OxyContin] 10 mg Tablet,Oral Only,Ext.Rel.12 Hr
10 mg PO HS@2300
vitamin A 3,000 mcg (10,000 unit) Capsule
3,000 mcg PO HS
therapeutic multivitamin Tablet
1 tab PO HS
Patient Comments:
05/20/24: Patient would like to use their own brand
hydromorphone 4 mg Tablet
4 mg PO Q4HPRN PRN (Reason: severe breakthrough pain)
Patient Comments:
Pt reports 'I took 2 mg so I split it in half'
Visbiome 112.5 billion cell capsule
2 cap PO DAILY Qty: 30 0RF
docusate sodium [Colace] 100 mg Capsule
200 mg PO DAILY
oxycodone 10 mg Tablet
10 mg PO HSPRN PRN (Reason: severe pain)
Patient Comments:
05/26/24: last filled 05/15/24 for 150 tablets over 30 days
promethazine 25 mg Tablet
12.5 mg PO Q6HPRN PRN (Reason: nausea and vomiting) Qty: 15 0RF
lidocaine HCl [Lidocaine Viscous] 2 % Solution
10 ml PO QID Qty: 0 0RF
loperamide [Imodium A-D] 2 mg capsule
2 mg PO Q6H PRN (Reason: loose stool) Qty: 1 0RF
clindamycin HCl 150 mg Capsule
300 mg PO Q6 10 Days Qty: 80 0RF
doxycycline hyclate 100 mg Capsule
100 mg PO Q12 10 Days Qty: 20 0RF
Referrals:
Nadege Dyson PA [Family Provider] -
Activity Restrictions/Additional Instructions:
Thank you for visiting the Emergency Department at [facility].
1. Please schedule a follow up appointment as directed. Call first thing tomorrow morning to make an appointment.
2. If indicated, please take your medications as instructed and indicated on discharge paperwork.
3. If any of your symptoms do not improve, or persist, or become more severe within 6-12 hours, please return to the emergency department for further care.
4. Please return to the emergency department if you develop a headache, neck pain/stiffness, fever greater than 100.4F, chest pain, shortness of breath, persistent nausea, vomiting, slurred speech, difficulty walking, numbness/tingling, weakness,
signs of infection or any other symptoms that are worrisome to you.
Please call [phone] if you have any questions.
Interventions
Interventions:
*Risk Screen - Suicide Last Done: 06/29/24 17:45
*General Assessment Last Done: 06/29/24 17:45
*Neglect/Abuse Screening Last Done: 06/29/24 17:45
ED- Fall Risk Assessment Last Done: 06/29/24 17:45
*ED COVID-19 Vaccine History Last Done: 06/29/24 17:45
*Nursing Disposition Last Done: 06/29/24 20:17
ED-Skin Assessment Last Done: 06/29/24 17:45
Discharge Date and Time
Discharge Date/Time: 06/29/24 20:22
Print Language: URDU
== END 2024-06-29 20:22 | disposition home or self-care (01) ==
LOC: EMR 14:31
PROVIDERS: EMERGENCY PHYSICIAN Emergency Medicine; FAMILY PHYSICIAN Physician Assistant Medical
DX: R21 Rash and other nonspecific skin eruption (principal); L29.9 Pruritus, unspecified; K58.9 Irritable bowel syndrome, unspecified; R00.0 Tachycardia, unspecified; K50.90 Crohn's disease, unspecified, without complications; F41.9 Anxiety disorder, unspecified; K90.0 Celiac disease; Z88.1 Allergy status to other antibiotic agents; Z91.012 Allergy to eggs; Z91.018 Allergy to other foods; Z91.013 Allergy to seafood; Z88.8 Allergy status to other drugs, medicaments and biological substances
CPT/HCPCS: 99283; 80053; 85025; 87220

== ENCOUNTER 2024-07-04 12:07 | Inpatient (IN) | payer OTHER, SELFPAY ==
[2024-07-04] VITALS (8 sets, daily range): BP systolic 18–142; BP diastolic 66–89; BMI 26.9
--- NOTE | 2024-07-04 11:09 | ED.GENMED ---
History of Present Illness
General
Chief Complaint: Oral/Mouth Problem
Source: patient and physician
Time Seen by Provider: 07/04/24 10:54
History of Present Illness
History of Present Illness:
29-year-old female with past medical history of celiac disease and Crohn's disease presenting to the ER at the request of her oral surgeon for admission as patient will need surgical procedure for bone grafting after she has been dealing with
infection to the maxillary region but has been resistant to multiple different rounds of oral antibiotics. Patient states that her oral surgeon contacted somebody at the hospital that she would be admitted with plan to be taken to the OR, implant
and bone graft culture with infectious disease also needing to be consulted for antibiotic coverage. Patient notes no other concerns at this time other than her usual chronic medical conditions that need her usual home medication regimen.
Past History
Past History
ED Past Medical History: Other (Crohn's disease, celiac, IBS, anxiety)
ED Past Surgical History: Orthopedic and Other (Bowel surgery)
Social History
Tobacco: Non-smoker
Alcohol: Occasional
Drug: None
Personal: Other (Engage)
Living: with family
Employment: Employed
Family History
Family History: Other (her dads mother had Juvenile RA, mother has palpitations)
Review of Systems
Review of Systems
All Other Systems: ROS reviewed and negative except as documented in HPI and ROS
Phy Exam
Physical Exam
Physical Exam:
GENERAL: Alert , in no apparent distress
EYE: conjunctiva clear
Head: Normocephalic atraumatic
NECK: Supple,
ENT: mmm.
LUNGS: no acute respiratory distress
NEUROLOGICAL: Alert and oriented
SKIN: Warm and dry, skin intact.
MUSCULOSKELETAL: well perfused.
PSYCH: Normal and appropriate interaction.
Scores
Heart Failure Risk
Heart Failure Risk Score: Not Applicable
Heart Score for Chest Pain Patients
STEMI patient?: Not applicable
Withdrawal Assessment of Alcohol
Withdrawal Assessment Completed?: Not applicable
Course
Orders/Labs/Results
Orders:
Orders
07/04/24 11:09
Basic Metabolic Panel Urgent
Complete Blood Count/With Diff Urgent
07/04/24 11:10
PTT Urgent
Prothrombin Time Urgent
07/04/24 11:29
Admit/Transfer Patient As Directed
Co-Sign Provider:
Level of Care: Inpatient admission
Assign to:: Medical/Surgical
Physician / Group: Lala
Diagnosis: Left maxillary sinus infection
Reason for Hospitalization: need surgery/debridement of the sinus
Expected length of stay greater than two midnights?: Yes
ELOS- Estimated Length of Stay in days: 3
I certify the patient meets the requirements for IP care: Yes
07/04/24 11:30
Code Status As Directed
Resuscitation Status: Full Code
PRN Pain Medication Management As Directed
May give lesser potent ordered pain med per pt: Yes
preference::
Protocol:: Medication orders for pain may be administered in a
manner that supports deferring to patient preference
when the pt is:
- Requesting an ordered lesser potent pain medication.
Least to most potent pain medications are defined
as: acetaminophen < NSAID < tramadol < opioids
(morphine, oxycodone, hydromorphone).
- Requesting a lesser dose of the same medication IF
ORDERED.
- Requesting a less intrusive route of administration
if both routes are prescribed by the provider (PO <
IV).
Vital Signs
Initial and Last Documented VS:
Initial Vital Signs
Temp Pulse Resp BP Pulse Ox
98.8 F 110 18 142/85 97
07/04/24 09:22 07/04/24 09:22 07/04/24 09:22 07/04/24 09:22 07/04/24 09:22
Last Documented Vital Signs
Temp Pulse Resp BP Pulse Ox
98.8 F 110 18 142/85 97
07/04/24 09:22 07/04/24 09:22 07/04/24 09:22 07/04/24 09:22 07/04/24 09:22
MDM/Problems Addressed
Differential Diagnosis Includes:
Dental caries, dental abscess, bone infection/soft tissue infection
MDM/Problems Addressed:
29-year-old female presenting to the ER at request of OMFS to be admitted for surgical procedure and IV antibiotics due to failing multiple outpatient treatments. OMFS had reached out to hospitalist service who is already in the ER ready to
evaluate the patient and place admission orders. Hospitalist team will consult infectious disease. They will order antibiotics at IDs request. Patient is otherwise hemodynamically stable.
Chronic conditions affecting care: Other (Crohn's disease on Remicade)
*Pulse Oximetry
Patient hypoxic: no
*Critical Care Note
Total Time (30-74mins, 75-104mins- exclusive of procedures): Not Applicable
Data Reviewed
Review of Other/Old Records Reveals: Labs and Records
Patient Management
Discussion with other providers: Hospitalist and Pharmacy Technician Trainee
Escalation/DeEscalation of care consider admission/obs:
Hospitalist team accepts for continued evaluation and treatment
ED Attending Note
-
Portions of this chart may have been created with voice recognition software.� Occasional wrong word or��sound alike� substitutions may have occurred due to the inherent limitations of voice recognition software.
Discharge Plan
Departure
Patient Disposition: Admit
Date of Disposition: 07/04/24
Time of Disposition: 11:09
Presentation/result/management discussed w/ accepting MD/DO: Hospitalist
Discharge Problem:
Dental infection
Prescriptions:
No Action
oxycodone 10 mg Tablet
10 mg PO QID@07,12,17,21
Patient Comments:
05/26/24: last filled 05/15/24 for 150 tablets over 30 days
clonazepam 1 mg Tablet
1 mg PO BID@1130,2300
fexofenadine 180 mg Tablet
360 mg PO HS
Patient Comments:
05/26/24: She gets special 360mg tabs from [facility] turner.
acetaminophen [Tylenol Extra Strength] 500 mg Tablet
1,000 mg PO Q6HPRN PRN (Reason: mild pain)
famotidine [Pepcid] 20 mg Tablet
10 mg PO HS
ascorbic acid (vitamin C) [Vitamin C] 500 mg Tablet
500 mg PO BID
infliximab [Remicade] 100 mg Recon Soln
7.5 mg IV Q6W
Rx Instructions:
7.5 mg/kg
gabapentin 300 mg Capsule
300 mg PO QID@,,,
hydroxyzine pamoate 25 mg capsule
25 mg PO QID@,,,
duloxetine [Cymbalta] 30 mg Capsule,Delayed Release(Dr/Ec)
30 mg PO DAILY
Rx Instructions:
take with 60mg
duloxetine [Cymbalta] 60 mg Capsule,Delayed Release(Dr/Ec)
60 mg PO DAILY
Rx Instructions:
take with 30mg
melatonin 10 mg Tablet
10 mg PO HS@2300
oxycodone [OxyContin] 10 mg Tablet,Oral Only,Ext.Rel.12 Hr
10 mg PO HS@2300
vitamin A 3,000 mcg (10,000 unit) Capsule
3,000 mcg PO HS
therapeutic multivitamin Tablet
1 tab PO HS
Patient Comments:
05/20/24: Patient would like to use their own brand
hydromorphone 4 mg Tablet
4 mg PO Q4HPRN PRN (Reason: severe breakthrough pain)
Patient Comments:
Pt reports 'I took 2 mg so I split it in half'
Visbiome 112.5 billion cell capsule
2 cap PO DAILY Qty: 30 0RF
oxycodone 10 mg Tablet
10 mg PO HSPRN PRN (Reason: severe pain)
Patient Comments:
05/26/24: last filled 05/15/24 for 150 tablets over 30 days
promethazine 25 mg Tablet
12.5 mg PO Q6HPRN PRN (Reason: nausea and vomiting) Qty: 15 0RF
lidocaine HCl [Lidocaine Viscous] 2 % Solution
10 ml PO QID Qty: 0 0RF
loperamide [Imodium A-D] 2 mg capsule
2 mg PO Q6H PRN (Reason: loose stool) Qty: 1 0RF
prednisone 10 mg tablet
10 mg PO DAILY Qty: 9 0RF
Rx Instructions:
20mg x3 days, 10mg x3 days
clotrimazole 1 % cream
1 applic topical BID 28 Days Qty: 45 0RF
Referrals:
Nadege Dyson PA [Family Provider] -
Interventions
Interventions:
*Risk Screen - Suicide Last Done: 07/04/24 09:22
*General Assessment Last Done: 07/04/24 09:22
*Neglect/Abuse Screening Last Done: 07/04/24 09:22
*ED COVID-19 Vaccine History Last Done: 07/04/24 09:22
Discharge Date and Time
Print Language: WELSH
--- NOTE | 2024-07-04 11:44 | HPS.HSE ---
Family Physician
-
Family Physician: Nadege Dyson
Chief Complaint
-
Left maxillary pain and swelling.
History of Present Illness
Patient with issues of recurrent left facial cellulitis that suspected secondary to odontogenic source history for today by her oral maxillofacial surgery for left maxillary sinus debridement.
She was troubled with the left maxillary tooth abscess for which she had a removal and had a bone graft in April last year. Subsequent to that she had left facial cellulitis and pain from the left extracted tooth. She had antibiotic courses.
She had issues with skin rash which was felt may be a fungal. She had a skin biopsy the report of which is pending.
She now has a recurrence of left facial mild swelling and pain off of antibiotics. She has not been antibiotics for the last 2 weeks or so.
Denies any nasal discharge.
No fever chills at home.
For the skin rash was advised to apply topical antifungal and she is seeing improvement. Skin rash was predominantly lower chest upper abdomen area. She had it in the scalp as well as perineal area apparently.
She has had a history of Crohn's disease but no flare now. She also has chronic pain syndrome for which she sees a pain doctor. She takes oxycodone 10 mg every 4 hours and as well as as needed. She also takes OxyContin 1 tablet at bedtime. She
was apparently also given Dilaudid recently for her tooth pain issues which she is trying to avoid the use.
Medical History
Past Medical History
Past Medical History: Reports Other
Additional Past Medical History:
Crohn's disease on Remicade
Inflammatory Polyarthropathy
Chronic Pain Syndrome
Celiac
Anxiety
Past Surgical History: Reports Other
Additional Past Surgical History:
Heel deformities removed x 2 wisdom teeth extraction
Robotic rectopexy for prolapsed rectum age 26
Social History
Tobacco: Non-smoker
Alcohol: None
Drug: None
Personal: Other (Engaged)
Living: With Family
Family History
Family History: Other (Mother history of thyroid disease, depression, pancreatic enzyme deficiency, sister type I diabetic, asthma, dad hypertension, hyperlipidemia, brother asked Buerger's autism spectrum)
Allergies / Home Medications
Allergies reflects when Allergies were last updated in [employer].
Home Medications with original date entered in [employer]
Allergy/Medication List:
Allergies
Allergy/AdvReac Type Severity Reaction Status Date / Time
egg Allergy Anaphylaxis Verified 06/25/24 02:48
gluten Allergy stomach Verified 06/25/24 02:48
pain
prochlorperazine Allergy Akathesia Verified 06/25/24 02:48
shrimp Allergy Unknown Verified 06/25/24 02:48
tree nut Allergy Hives Verified 06/25/24 02:48
piperacillin [From Zosyn] AdvReac Severe Severe Verified 06/25/24 02:48
arthritic
pain
tazobactam [From Zosyn] AdvReac Severe Severe Verified 06/25/24 02:48
arthritic
pain
Home Medications
oxycodone 10 mg tablet 10 mg PO QID@07,12,17,21 02/12/23
acetaminophen 500 mg tablet (Tylenol Extra Strength) 1,000 mg PO Q6HPRN PRN mild pain 01/15/24
ascorbic acid (vitamin C) 500 mg tablet (Vitamin C) 500 mg PO BID Supplement 01/15/24
clonazepam 1 mg tablet 1 mg PO BID@1130,2300 Mental Health/Anxiety 01/15/24
duloxetine 30 mg capsule,delayed release (Cymbalta) 30 mg PO DAILY mental health 01/15/24
duloxetine 60 mg capsule,delayed release (Cymbalta) 60 mg PO DAILY mental health 01/15/24
famotidine 20 mg tablet (Pepcid) 10 mg PO HS Gastrointestinal Issue 01/15/24
fexofenadine 180 mg tablet 360 mg PO HS Allergies 01/15/24
gabapentin 300 mg capsule 300 mg PO QID@,,, Neurological Condition 01/15/24
hydroxyzine pamoate 25 mg capsule 25 mg PO QID@,,, Mental Health/Anxiety 01/15/24
infliximab 100 mg intravenous solution (Remicade) 7.5 mg IV Q6W Crohn's disease 01/15/24
melatonin 10 mg tablet 10 mg PO HS@2300 Sleep 01/15/24
oxycodone 10 mg tablet,crush resistant,extended release 12 hr (OxyContin) 10 mg PO HS@2300 chronic pain 01/15/24
vitamin A 3,000 mcg (10,000 unit) capsule 3,000 mcg PO HS Supplement 02/26/24
hydromorphone 4 mg tablet 4 mg PO Q4HPRN PRN severe breakthrough pain 05/09/24
therapeutic multivitamin 1 tab PO HS Supplement 05/09/24
Lactobac no.2-Bifidobac no.1-S. thermo 112.5 billion cell capsule (Visbiome) 2 cap PO DAILY #30 caps 05/14/24
docusate sodium 100 mg capsule (Colace) 200 mg PO DAILY Constipation 05/20/24
oxycodone 10 mg tablet 10 mg PO HSPRN PRN severe pain 05/26/24
lidocaine HCl 2 % mucosal solution (Lidocaine Viscous) 10 ml PO QID #0 mL 05/30/24
loperamide 2 mg capsule (Imodium A-D) 2 mg PO Q6H PRN loose stool #1 cap 05/30/24
promethazine 25 mg tablet 12.5 mg (1/2 x 25 mg) PO Q6HPRN PRN nausea and vomiting #15 tabs 05/30/24
Review of Systems
-
A 12 point ROS was completed and negative except as noted: Yes
Physical Exam
Vital Signs
Vital Signs
Temp Pulse Resp BP Pulse Ox
98.8 F 110 18 142/85 97
07/04/24 09:22 07/04/24 09:22 07/04/24 09:22 07/04/24 09:22 07/04/24 09:22
Physical Exam
General: Comfortable
HEENT: Other (No redness of left maxillary area but mild tenderness elicited on palpation)
Respiratory: Non Labored Respirations; No Accessory Resp Muscle Use
Cardiac: S1/S2, Regular Rhythm and Tachycardia
GI: Soft, Non Tender, Non Distended and Normal Bowel Sounds
Skin: Other (Mild erythematous scaly rash in lower chest and upper abdominal area)
Neuro: AO x 3
Psych: Calm
Laboratory Results
-
Left maxillary sinusitis-no systemic toxicity currently. She is afebrile. White count pending. She is slightly tachycardic. Plan is for OR today for maxillary sinus debridement. Consult ID for choice of antibiotics. OMFS to collect cultures
from the sinus in OR.
Skin rash-suspected fungal-continue topical antifungal
Chronic pain syndrome-continue with her home regimen. Add IV Dilaudid for severe pain postsurgery as needed. Start on bowel regimen.
History of inflammatory polyarthropathy.
Crohn's disease-no flare. On Remicade as outpatient.
Anxiety/depression-continue the home medication
Full code
Impression/Plan
-
IMPRESSION:
PLAN:
[2024-07-04 12:13] LABS: % Basophils 0.5 % (0-2); % Eosinophils 4.8 % (0-6); % Immature Granulocytes 0.4 % (0-0.5); % Monocytes 8.2 % (1.7-9.3); % Neutrophils 50.1 % (42.2-75.2); Absolute Basophils 0.1 10^3/uL (0-0.2); Absolute Eosinophils 0.5 10^3/uL (0-0.7); Absolute Lymphocytes 3.5 10^3/uL (1.2-3.4); Absolute Monocytes 0.8 10^3/uL (0.1-0.6); Absolute Neutrophils 4.9 10^3/uL (1.4-6.5); Hematocrit 35.6 % (37.0-47.0); Hemoglobin 12.2 g/dL (12.0-16.0); Mean Corp Hgb Conc. 34.3 g/dL (33.0-37.0); Mean Corpuscular Hgb 28.4 pg (27.0-31.0); Mean Platelet Volume 9.9 fL (7.4-10.4); Nucleated Red Blood Cells % 0 %; Platelet Count 280 10^3/uL (130-400); Red Blood Cell Count 4.29 10^6/uL (4.20-5.40); Red Cell Dist. Width 13.1 % (11.5-14.5); White Blood Cell Count 9.8 10^3/uL (4.8-10.8)
[2024-07-04 12:26] LABS: INR 0.98; PT 13.3 Sec (11.4-14.6)
[2024-07-04 12:27] LABS: APTT 31.8 Sec (23.4-35.0)
[2024-07-04 12:31] LABS: Blood Urea Nitrogen 16 mg/dl (7-17); Calcium 8.8 mg/dl (8.4-10.2); Carbon Dioxide 28 mmol/L (22-30); Chloride 101 mmol/L (98-107); Estimated Creatinine Clearance 103 ml/min; Glucose 96 mg/dl (70-99); Potassium 4.3 mmol/L (3.5-5.1); Sodium 137 mmol/L (135-145); eGFR > 60.00
[2024-07-04] MEDS: DILAUDID 1 MG IV ×3 (12:58→23:58)
--- NOTE | 2024-07-04 16:19 | CON.ID ---
Consultation
-
Date/Time Consultation Requested: 07/04/24 9:39
Date/Time Consultation Performed: 07/04/24 16:20
Requesting Provider: Dr Lala
Performing Provider: Dr Morse
Reason for Consultation: suspected odontogenic infection
Chief Complaint / Past History
Chief Complaint
L sided facial swelling
History of Present Illness
Ms Olivia is a 29 year old female with history of Crohns disease on remicaide q6 weeks, celiac disease, IBS who represented here 05/26 for recurrent L sided facial swelling. She reports some double vision but no pain with ocular motion. Reports
symptoms first began last March with dental abscess of the L maxillary canine after a veneer came off. Prescribed amoxicillin 500 mg PO q6 hr, subsequently with severe tooth pain, swelling; saw her diesel power mechanic who did an Xray showing a large
abscess. Had partial root canal with antibiotic instillation and continue amoxicillin. That evening with severe pain and worsening facial swelling. Presented here 04/[address] showed left facial swelling without abscess. Amoxcillin switched to
clindamycin 300 mg PO q6hrs. Discharged home, pain persisted and presented here and was discharged on aumgentin 05/02. She had her remicaide dose 05/08/24 (late); same day was reassessed with her dentist had another root canal on the contralateral
side the right side - felt there was no infection in the right side at that time. The next day she noted new swelling on the Left medial eye and she presented here. Started on vancomycin and unasyn. She was seen by ID 04/29/24 for L facial
swelling with mild, intermittent double vision, vancomycin stopped and unasyn continued; she completed about a 10 day course of augmentin. She followed up with Dr Cabrales and was told she had a mild infection of the left canine; she underwent a
partial resection and bone grafting on 05/17. She continued on augmentin, however on POD 9 05/27 she noted slight swelling of the L face, intermittent double vision. Mother (her household contact) was also diagnosed with C difficile the same day.
We trialed a combination of levofloxacin/metronidazole she tells me she completed a planned 7 day course though nausea was somewhat challenging. The history I had from Dr Eason was that she stopped it early. She remained well for some time
then 06/[address] Cabrales's office for relapse of facial swelling, spoke with her partner and was initially started on clindamycin. Dr Cabrales later reviewed photos of her face that night and did appreciate facial swelling at that
time. She was seen in the ER 06/21 and seen [facility] who recorded 'Slight vague swelling to the left side of the face from the left lip region to the infraorbital region. Vague redness' on his physical exam. Clindamycin was continued. She saw
[facility] [place] and was switched to augmentin 06/23 due to houshold contact with C difficile. 06/24 represented to our ER for a pustular rash across the body and pruritus, sweats and chills. I reviewed photos of this rash - pustular with heavy
rash along the bra line also scattered lesions on the abdomen and extremities. My impression is it was most consistent with folliculitis. WBC 8.6, esr 41, crp 6. She was admitted seen by Dr Weems (ID, my partner) who initially stopped
antibiotics overnight then after he evaluated her restarted clindamycin with doxycycline she was discharged with a plan for 10 further days of this combination (through 07/05/24). She had vomiting when taking the doxycycline she says both with and
without food. The rash progressed to involve the vulva - she has photos of pustular/follicular patern on the vulva as well. She was seen by dermatology 06/26 and underwent skin biopsy; she was started on a topical steroid cream. She was
reassessed with [facility] as well and tells me that she was told she could stop antibiotics at that time. She was due for her remicaide wednesday 06/27. Then, 07/[address] Eason complaining of swelling again, she sent photos to her and I am
told Dr Eason did not appreciated swelling on the 07/[address] eason called me and we discussed options, MRI felt to be of limited value given that initial procedure was just 5 weeks ago and would likely have residual changes
irregardless of whether there is ongoing infection. Given her intolerance and unwillingness to try most standard oral regimens, I have advised inpatient admission for further evaluation. Dr Eason is planning to remove the bone graft, get
cultures and pathology and is willing to do the procedure inpatient. I commented that I wouldnt finalize an antibiotic plan or duration until those data were known as it is unclear to me if she has ongoing infection or not at this time. No current
fevers, chills or systemic symptoms. She plans a referral to an diesel power mechanic as a second opinion and then admission. She will notify us when plans are finalized from her perspective and we await further input from OMFS at this time. She does
report that her stools are currently loose but not liquid, no abdominal pain, no blood in the stool.
Past History
Additional Past Medical History:
celiac disease, IBS
Additional Past Surgical History:
as per hpi
Allergy History:
egg Allergy (Verified 07/04/24 09:25)
Anaphylaxis
gluten Allergy (Verified 07/04/24 09:25)
stomach pain
prochlorperazine Allergy (Verified 07/04/24 09:25)
Akathesia
shrimp Allergy (Verified 07/04/24 09:25)
Unknown
tree nut Allergy (Verified 07/04/24 09:25)
Hives
piperacillin [From Zosyn] Adverse Reaction (Severe, Verified 07/04/24 09:25)
Severe arthritic pain
tazobactam [From Zosyn] Adverse Reaction (Severe, Verified 07/04/24 09:25)
Severe arthritic pain
Medications Reviewed: Yes
Social History
Tobacco: Non-Smoker
Alcohol: None
Drug: None
Family History
Family History: Not Pertinent
Review of Systems
Review of Systems
General: Negative Fever or Chills
All systems: All other systems were reviewed and were negative
Vital Signs
Temp Pulse Resp BP Pulse Ox
98.3 F 102 16 106/70 96
07/04/24 14:09 07/04/24 14:09 07/04/24 14:09 07/04/24 14:09 07/04/24 14:09
Physical Exam
Physical Exam
Constitutional: No Acute Distress
Head: Other (minimal swelling of the left nasolabial fold)
Cardiovascular: Regular Rate and S1/S2; Negative Murmur or Rub
Pulmonary: Clear and Symmetric; Negative Wheezes, Rales or Rhonchi
Gastrointestinal: Soft, Non Tender, Non Distended and Normal Bowel Sounds
Skin: Warm and Dry; Negative Rash or Jaundice
Lab / Diagnostic Study Results
07/04/24 12:06
07/04/24 12:06
Abs Immat Gran (auto) 0.0 10^3/uL (0-0.05) 07/04/24 12:06
Absolute Neuts (auto) 4.9 10^3/uL (1.4-6.5) 07/04/24 12:06
Absolute Lymphs (auto) 3.5 10^3/uL (1.2-3.4) H 07/04/24 12:06
Absolute Monos (auto) 0.8 10^3/uL (0.1-0.6) H 07/04/24 12:06
Absolute Basos (auto) 0.1 10^3/uL (0-0.2) 07/04/24 12:06
Immature Gran % 0.4 % (0-0.5) 07/04/24 12:06
Neutrophils % 50.1 % (42.2-75.2) 07/04/24 12:06
Lymphocytes % 36.0 % (20.5-51.1) 07/04/24 12:06
Monocytes % 8.2 % (1.7-9.3) 07/04/24 12:06
Eosinophils % 4.8 % (0-6) 07/04/24 12:06
Basophils % 0.5 % (0-2) 07/04/24 12:06
PT 13.3 Sec (11.4-14.6) 07/04/24 12:06
INR 0.98 07/04/24 12:06
Assessment / Plan
Possible Odontogenic Infection
Immunosuppression - Crohns on Remicaide
Intolerance to multiple medications: zosyn, doxycycline, metronidazole
- for debridement, culture and pathology of the previous bone graft later today
- hold antibiotics at this time
- discussed options with patient, pending cultures, a home course of IV ertapenem may be considered, duration pending course
--- NOTE | 2024-07-04 16:31 | CON.ORS ---
Consultation - Oral Surgery
Subjective
29 year old female with past medical history of Crohn's on Remicade, chronic pain, anxiety with recurrent infection of site #11. She has had multiple hospital visits regarding this infection. Initially root canal treatment was attempted without
resolution of the infection. The tooth was extracted and the site was bone grafted on 05/18/24. She has not tolerated multiple courses of antibiotics including Augmentin, Levaquin/Flagyl, clindamycin/doxycycline. Most recently she developed left
facial swelling on 06/20/24 for which she was prescribed Clindamycin on 06/21/24 without improvement in symptoms over the next two days. I prescribed Augmentin on 06/23/24 and she subsequently developed a skin rash, which was felt not to be related,
however Augmentin was discontinued and she was started again on Clindamycin with Doxycycline, with her last dose on 06/26/24. Her swelling and associated pain had resolved when I saw her on 06/27/24. She had her most recent Remicade infusion on
06/27/24. On Wednesday07/01/24 she started to have some sensitivity in the area of the extraction and on Wednesday07/02/24 she contacted me concerned with swelling starting again in the area. Antibiotics were not initiated again at this time. After
discussion with Dr. Morse regarding potential antibiotic treatment courses we agreed that the best course of action at this time would be admission for debridement of the site with cultures to direct antibiotic management given her history of
intolerance of prior oral antibiotics. Today she reports pain at the site of #11.
Past Medical History
Past Medical History: Other (Crohn's, anxiety, chronic pain )
Past Surgical History: Other
Tobacco: Non-smoker
Medications / Allergies
Allergies
Allergy/AdvReac Type Severity Reaction Status Date / Time
egg Allergy Anaphylaxis Verified 07/04/24 09:25
gluten Allergy stomach Verified 07/04/24 09:25
pain
prochlorperazine Allergy Akathesia Verified 07/04/24 09:25
shrimp Allergy Unknown Verified 07/04/24 09:25
tree nut Allergy Hives Verified 07/04/24 09:25
piperacillin [From Zosyn] AdvReac Severe Severe Verified 07/04/24 09:25
arthritic
pain
tazobactam [From Zosyn] AdvReac Severe Severe Verified 07/04/24 09:25
arthritic
pain
Active Medications
Generic Name Dose Route Start Last Admin
Trade Name Freq PRN Reason Stop Dose Admin
Hydromorphone HCl 1 mg 07/04/24 12:27 07/04/24 12:58
Hydromorphone 1 Mg/Ml Carpuject IV 07/18/24 12:26 1 mg
Q4HPRN PRN Administration
severe pain
Review of Systems
Constitutional: Reports No Symptoms
Eyes: Reports No Symptoms
ENT: Reports Other (Pain from prior extraction site #11)
Cardiovascular: Reports No Symptoms
Respiratory: Reports No Symptoms
Gastrointestinal: Reports Other (Loose stools)
Musculoskeletal: Reports Joint Pain
Vital Signs
Temp Pulse Resp BP Pulse Ox
36.8 C 102 16 106/70 96
07/04/24 14:09 07/04/24 14:09 07/04/24 14:09 07/04/24 14:09 07/04/24 14:09
Physical Exam
General: Awake, Alert, Oriented x 3 and Not in Acute Distress
Extra-oral Exam: Other (No extraoral swelling. Tenderness to palpation near the left alar base)
Intra-oral Exam: Other (No vestibular swelling or fluctuance. Small very localized swelling/pustule in the gingiva site #11. Gingival erythema)
Assessment / Plan
29 year old female with past medical history of Crohn's on Remicade, chronic pain, anxiety with recurrent infection of site #11 and inability to tolerate multiple courses of oral antibiotics as an outpatient. After discussion with Dr. Morse
regarding potential antibiotic treatment courses we agreed that the best course of action at this time would be admission for debridement of the site with cultures to direct antibiotic management given her history of intolerance of prior oral
antibiotics. Plan for debridement of the left maxilla at site #11 today. Risks were reviewed including pain, bleeding, swelling, persistent infection, and damage to adjacent structures.
Data Reviewed
Labs: Labs Reviewed by me
--- NOTE | 2024-07-04 18:23 | OR.RPT ---
Operative Report
Operative Report
Primary Surgeon:� Shirley Cabrales
Assisting Surgeon:� N/A
Pre-op Diagnosis:� Dental infection
Post-op Diagnosis: � Dental infection
Anesthesia Type:� MAC
Procedure Performed:� Debridement of the left maxilla at site #11
The patient was prepped and draped in a standard sterile fashion with peridex intraorally. 2 cc of 2% lidocaine with 1:100,000 epinephrine injected as local infiltration. A #15 blade was used to make a sulcular incision along teeth #10-12 and a full
thickness mucoperiosteal flap was elevated. Bone graft material was debrided from the site using a curette. All unconsolidated bone graft material was removed. Bone graft was sent for culture and culture swabs were taken. A periosteal elevator was
used to bluntly dissect along the labial aspect of the maxilla. No purulence was expressed. The site was thoroughly irrigated with NSS. Closed with 3-0 CGS. At the end of the case, the throat pack was removed and the oral cavity was inspected and
found to be free of foreign debris. The patient was transferred to the Post-Anesthesia Care Unit.
Specimen / Cultures:� Left maxilla site #11
Estimated Blood Loss:� 1cc
Complications:� None
[2024-07-04] MEDS: LOVENOX 40 MG SC (19:33)
[2024-07-04] MEDS: NEURONTIN 300 MG PO ×2 (19:33→23:39)
[2024-07-04] MEDS: ROXICODONE 10 MG PO ×2 (19:38→22:37)
[2024-07-04 19:49] LABS: TSH 0.86 uIU/ml (0.47-4.68)
[2024-07-04] MEDS: NON-FORMULARY ITEM 180 UNIT PO (22:24)
[2024-07-04] MEDS: NON-FORMULARY ITEM 1 UNIT PO (22:25)
[2024-07-04] MEDS: ATARAX 25 MG PO (22:26)
[2024-07-04] MEDS: TYLENOL 650 MG PO (22:37)
[2024-07-04] MEDS: PEPCID 20 MG PO (22:37)
[2024-07-04] MEDS: OXYCONTIN (CONTROLLED RELEASE) 10 MG PO (23:39)
[2024-07-04] MEDS: KLONOPIN 1 MG PO (23:39)
[2024-07-05] MEDS: ROXICODONE PO (02:17)
[2024-07-05] MEDS: DILAUDID 1 MG IV ×5 (03:57→22:31)
[2024-07-05 04:10] VITALS: BP 98/68
[2024-07-05] MEDS: ROXICODONE 10 MG PO ×4 (06:31→20:02)
[2024-07-05 06:38] LABS: Hematocrit 40.4 % (37.0-47.0); Hemoglobin 13.4 g/dL (12.0-16.0); Mean Corp Hgb Conc. 33.2 g/dL (33.0-37.0); Mean Corpuscular Hgb 28.3 pg (27.0-31.0); Mean Corpuscular Volume 85.2 fL (81.0-99.0); Platelet Count 322 10^3/uL (130-400); Red Blood Cell Count 4.74 10^6/uL (4.20-5.40); Red Cell Dist. Width 13.1 % (11.5-14.5)
[2024-07-05 07:02] LABS: C-Reactive Protein < 5.00 mg/L (0.0-10.00)
[2024-07-05 07:34] LABS: Erythrocyte Sed Rate 24 mm/hour (0-20)
[2024-07-05 08:20] VITALS: BP 110/67
[2024-07-05] MEDS: VISBIOME 2 CAP PO (08:44)
[2024-07-05] MEDS: CYMBALTA DELAYED RELEASE 60 MG PO (08:44)
[2024-07-05] MEDS: ATARAX 25 MG PO ×4 (08:44→21:59)
[2024-07-05] MEDS: NEURONTIN 300 MG PO ×4 (08:44→22:00)
--- NOTE | 2024-07-05 10:24 | W.PN.ID1 ---
Addendum entered and electronically signed by Marli Morse MD 07/05/24 11:23:
will hold on line until antibiotics finalized
Original Note:
Date of Service
Date of Service: July 05, 2024
Today's Communication
- start vancomycin and ertapenem for now
- probiotics
Assessment / Plan
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
Immunosuppression - Crohns on Remicaide
Intolerance to multiple medications: zosyn, doxycycline, metronidazole
- post operative leukocytosis noted
- tissue culture: rare GPCs, rare GNR
- MRSA pcr sent
- would like to follow cultures for ID and sensitivities prior to finalizing regimen
- start vancomycin and ertapenem for now
- probiotics
- midline
- follow clinically
Chief Complaint
-: Other (odontogenic infection)
Subjective / Review of Systems
afebrile
bp stable
discussed results of procedure with Dr Cabrales last night via tiger text: eklutna bone with a healthy appearance, graft removed, swabs of bone graft sent for culture, no purulence, small area of localized swelling of the gingiva noted
no complaints
Vital Signs / Physical Exam
Vital Signs
Vital Signs
Temp Pulse Resp BP Pulse Ox
98.1 F 65 16 98/68 95
07/05/24 04:10 07/05/24 04:10 07/05/24 04:10 07/05/24 04:10 07/04/24 18:45
Physical Exam
Constitutional: No Acute Distress
Cardiovascular: Regular Rate and S1/S2; Negative Murmur or Rub
Pulmonary: Clear and Symmetric; Negative Wheezes or Rales
Gastrointestinal: Soft, Non Tender, Non Distended and Normal Bowel Sounds
Skin: Warm and Dry; Negative Rash or Jaundice
Objective Data
Lab Data
Lab Results
07/05/24 06:19
07/04/24 12:06
ESR 24 mm/hour (0-20) H 07/05/24 06:19
PT 13.3 Sec (11.4-14.6) 07/04/24 12:06
INR 0.98 07/04/24 12:06
APTT 31.8 Sec (23.4-35.0) 07/04/24 12:06
Estimated Creat Clear 103 ml/min 07/04/24 12:06
C-Reactive Protein < 5.00 mg/L (0.0-10.00) 07/05/24 06:19
Most recent labs reviewed.
Micro Results:
07/04/24 17:45 Wound Culture - Pending
Abscess Gram Stain - Preliminary
07/04/24 17:45 Tissue Culture - Pending
Bone Gram Stain - Preliminary
07/04/24 17:45 Anaerobic Culture - Pending
Abscess
Care Review
Plan reviewed with: Nurse (antibiotics)
--- NOTE | 2024-07-05 10:44 | CM ---
Addendum entered by Laurence Coppola 07/05/24 14:52:
Spoke with Oralia at [facility]
Pt would have a $30 co-pay each dispense. Nursing/supplies covered at 100%
Pt updated
Dr Morse updated
Addendum entered by Laurence Coppola 07/05/24 12:16:
Contacted Oralia from [facility] [place] regarding home infusion needs
Clinicals faxed to [facility] - [phone]
Plan - anticipate home with [facility] when medically ready
Original Note:
Met with pt and her fiance at bedside
Pt reports she lives with her parents and fiance in a 2 story home; 2 steps to enter, 13 steps to 2nd fl
Independent, unemployed
DME - none
SNF/HH - no past hx
Will have ride at d/c
PCP - Nadege Dyson
Pharm - [facility] [place]
CM will follow for d/c needs - poss IV antibiotics
Plan - TBD based on pt needs
--- NOTE | 2024-07-05 10:48 | PHA.VAN.IN ---
Assessment
- Assessment
Renal Function: Appears similar to baseline
Concomitant Antimicrobials: ertapenem
AUC Dosing Plan
- Dosing Variables
Dosing Weight (kg): 71
Dosing CrCl (ml/min): 103
Vd coefficient (L/kg): 0.7
- Empiric Dosing
Maintenance Regimen: Vanc 1000mg Q12H - first dose now then 1800
Estimated AUC (mcg*h/mL): 468
Estimated Peak (mcg*h/mL): 30.5
Estimated Trough (mcg/ml): 11.3
Estimated Half Life (H): 7.7
- Monitoring
No levels ordered at this time: consider levels in next few days
Pharmacokinetics Vancomycin I
- -
Patient Age: 29
Patient Sex: Female
Vancomycin Day #: 1
Indication: Skin And Soft Tissue
Requesting Provider: Dr. Morse
Pertinent Antimicrobial Allergies:
piperacillin/tazobactam - severe arthritic pain
doxycycline - N/V
metronidazole - N/V
Height / Weight:
Height 5 ft 4 in
Actual Weight 71 kg
Pertinent Past Medical History: Crohns (infliximab)
- Vital Signs / Lab Results
Temp Pulse Resp BP Pulse Ox
98.1 F 65 16 98/68 95
07/05/24 04:10 07/05/24 04:10 07/05/24 04:10 07/05/24 04:10 07/04/24 18:45
Lab Results - Hematology
07/04/24 07/05/24
12:06 06:19
WBC 9.8 11.0 H
Lab Results - Chemistry
07/04/24
12:06
BUN 16
Creatinine 0.7
Estimated Creat Clear 103
Microbiology Results
07/04/24 17:45 Gram Stain - Preliminary
Abscess
07/04/24 17:45 Gram Stain - Preliminary
Bone
[2024-07-05] MEDS: CYMBALTA DELAYED RELEASE 30 MG PO (11:07)
[2024-07-05] MEDS: TYLENOL 650 MG PO (11:08)
--- NOTE | 2024-07-05 11:29 | W.PN.HOSP.TC ---
Today's Communication/Plan
-
cw abx
Follow Cx data
Assessment / Plan
Assessment / Plan
Left maxillary sinusitis-s/p removal of bone graft 07/04. No systemic toxicity currently. She is afebrile. White count normal on adx. OR cx with GPC and GNR. ID input noted - recommends IV abx pending final cx data. Hold on mid/picc line till cx is
reported.
Skin rash-suspected fungal-continue topical antifungal
Chronic pain syndrome-continue with her home regimen. cw IV Dilaudid for severe pain postsurgery as needed. cw bowel regimen prn.
History of inflammatory polyarthropathy.
Crohn's disease-no flare. On Remicade as outpatient.
Anxiety/depression-continue the home medication
Full code
DW ID- will follow cx data to finalized on abx regimen.
Anticipated Discharge: 24 - 48 hours
Subjective/Interval History
-
Date of Service: July 05, 2024
No fever chills.
Complains of postoperative pain in the left maxillary tooth area ;not much swelling.
No nausea vomiting.
Tolerating diet.
Objective Data
-
Labs:
Laboratory Results
07/05/24
06:19
WBC 11.0 H
Hgb 13.4
Hct 40.4
Plt Count 322
Vital Signs:
Vital Signs
Temp Pulse Resp BP Pulse Ox
98.1 F 65 16 98/68 95
07/05/24 04:10 07/05/24 04:10 07/05/24 04:10 07/05/24 04:10 07/04/24 18:45
Review of Systems
-
Constitutional: Denies Fever
EENT: Denies Sore Throat
Respiratory: Denies Trouble Breathing
Cardiac: Denies Chest Pain
Abdomen/GI: Denies Abdominal Pain, Nausea, Vomiting or Constipated
Neuro: Denies Dizzy
Physical Exam
-
General: No Apparent Distress
HEENT: Moist Mucous Membranes and Other (Left maxillary area without much swelling or clinical cellulitis.)
Respiratory: Clear to Auscultation
Cardiac: Regular Rhythm and S1/S2
GI: Soft
Neuro: AO x 3
Psych: Calm
Data Reviewed
-
Labs: Labs Reviewed by me
[2024-07-05] MEDS: KLONOPIN 1 MG PO ×2 (11:59→23:05)
[2024-07-05] MEDS: VANCOCIN 200 IV ×2 (12:12→19:29)
[2024-07-05] MEDS: INVANZ 60 MG IV (13:29)
[2024-07-05 13:31] VITALS: BMI 26.0
[2024-07-05 16:17] VITALS: BP 103/68
[2024-07-05] MEDS: NON-FORMULARY ITEM PO (16:17)
--- NOTE | 2024-07-05 16:20 | PTCARENOTE ---
Pt requesting straight cath kit to self cath
[2024-07-05] MEDS: LOVENOX 40 MG SC (18:05)
--- NOTE | 2024-07-05 18:51 | W.PN.OMFS ---
Today's Communication
-
ID recs for antibiotics
Following cultures
Diet as tolerated
Continue oral hygiene
Will schedule outpatient follow-up for 07/11
Assessment / Plan
-
29F with H Crohn's on Remicade, chronic pain, anxiety now 1 day s/p debridement of the left maxilla at site #11 progressing according to a normal post-operative course. Will follow cultures and ID recommendations for antibiotics.
Subjective Data
-
29F 1 day s/p debridement of the maxilla at site #11. She reports pain from the site which was more severe last night but has improved some this morning.
Objective Data
-
Vitals, I&O and Lab Results:
Vital Signs
Temp Pulse Resp BP Pulse Ox
36.9 C 92 18 103/68 96
07/05/24 16:17 07/05/24 16:17 07/05/24 16:17 07/05/24 16:17 07/05/24 08:20
Intake and Output
07/04/24 07/05/24 07/06/24
06:59 06:59 06:59
Output Total 375 / 375
Balance -375 / -375
Output:
Urine, Dee 375 / 375
Lab Data
07/05/24 06:19
07/04/24 12:06
Plt Count 322 10^3/uL (130-400) 07/05/24 06:19
Microbiology
07/04/24 17:45 Tissue Culture - Preliminary
Bone Gram Stain - Preliminary
07/04/24 17:45 Anaerobic Culture - Preliminary
Abscess Culture pending. Anaerobic cultures are examined after 3
days incubation. Additional information to follow.
07/04/24 17:45 Wound Culture - Preliminary
Abscess Gram Stain - Preliminary
Physical Exam
-
E/O: No swelling or LAD
I/O: Sutures in place, dried blood at site #11, gingival swelling consistent with procedure, no purulence
[2024-07-05 20:00] VITALS: BP 105/71
[2024-07-05] MEDS: PEPCID 20 MG PO (22:00)
[2024-07-05] MEDS: NON-FORMULARY ITEM 1 UNIT PO ×2 (22:01→23:05)
[2024-07-05] MEDS: NON-FORMULARY ITEM 2 UNIT PO (22:12)
[2024-07-05] MEDS: OXYCONTIN (CONTROLLED RELEASE) 10 MG PO (23:04)
[2024-07-05 23:15] VITALS: BP 108/73
[2024-07-06] MEDS: ROXICODONE PO
[2024-07-06] MEDS: ROXICODONE 10 MG PO ×5 (01:59→20:09)
[2024-07-06] MEDS: DILAUDID 1 MG IV ×5 (03:30→23:11)
[2024-07-06 03:52] VITALS: BP 114/65
--- NOTE | 2024-07-06 04:50 | PTCARENOTE ---
pt stated she did a salt water rinse and there was a small spot of serosanguineous drainage seen on her mask. no active bleeding or clots from surgical site.
--- NOTE | 2024-07-06 04:53 | PTCARENOTE ---
pt requested a straight cath kit to self cath.
[2024-07-06] MEDS: VANCOCIN 200 IV (05:53)
[2024-07-06 08:00] VITALS: BP 102/64
[2024-07-06] MEDS: CYMBALTA DELAYED RELEASE 60 MG PO (08:25)
[2024-07-06] MEDS: CYMBALTA DELAYED RELEASE 30 MG PO (08:25)
[2024-07-06] MEDS: NEURONTIN 300 MG PO ×4 (08:31→21:53)
[2024-07-06] MEDS: ATARAX 25 MG PO ×4 (08:31→21:53)
[2024-07-06] MEDS: VISBIOME 2 CAP PO (08:38)
--- NOTE | 2024-07-06 10:15 | W.PN.ID1 ---
Date of Service
Date of Service: July 06, 2024
Today's Communication
- asks for anxiolytic for midline - defer to IM service, I will order placement of midline tomorrow
- plan two week course of ertapenem
Assessment / Plan
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
Immunosuppression - Crohns on Remicaide
Intolerance to multiple medications: zosyn, doxycycline, metronidazole
- tissue culture: rare GPCs, rare GNR, culture in progress
- MRSA pcr ordered
- would like to follow cultures for ID and sensitivities prior to finalizing regimen
- c/w ertapenem - tolerating - plan two week total course
- stop vancomycin
- probiotics while on broad specturm therapy
- asks for anxiolytic for midline - defer to IM service, I will order placement of midline tomorrow
- follow clinically
Chief Complaint
-: Other (odontogenic infection)
Subjective / Review of Systems
afebrile
bp stable
no events overnight, doing self straight caths
we discussed that mrsa does not typically colonize the oral cavity, gram positives were found to be streptococcus
Vital Signs / Physical Exam
Vital Signs
Vital Signs
Temp Pulse Resp BP Pulse Ox
98.2 F 110 22 102/64 96
07/06/24 08:00 07/06/24 08:00 07/06/24 08:00 07/06/24 08:00 07/05/24 08:20
Physical Exam
Constitutional: No Acute Distress
Cardiovascular: Regular Rate and S1/S2; Negative Murmur or Rub
Pulmonary: Clear and Symmetric; Negative Wheezes or Rales
Gastrointestinal: Soft, Non Tender, Non Distended and Normal Bowel Sounds
Skin: Warm and Dry; Negative Rash or Jaundice
Objective Data
Lab Data
Lab Results
07/05/24 06:19
07/04/24 12:06
ESR 24 mm/hour (0-20) H 07/05/24 06:19
PT 13.3 Sec (11.4-14.6) 07/04/24 12:06
INR 0.98 07/04/24 12:06
APTT 31.8 Sec (23.4-35.0) 07/04/24 12:06
Estimated Creat Clear 103 ml/min 07/04/24 12:06
C-Reactive Protein < 5.00 mg/L (0.0-10.00) 07/05/24 06:19
Most recent labs reviewed.
Micro Results:
07/04/24 17:45 Tissue Culture - Preliminary
Bone Gram Stain - Preliminary
07/04/24 17:45 Anaerobic Culture - Preliminary
Abscess Culture pending. Anaerobic cultures are examined after 3
days incubation. Additional information to follow.
07/04/24 17:45 Wound Culture - Preliminary
Abscess Gram Stain - Preliminary
[2024-07-06] MEDS: KLONOPIN 1 MG PO ×2 (11:17→22:58)
[2024-07-06 11:41] VITALS: BP 105/72
--- NOTE | 2024-07-06 11:56 | W.PN.OMFS ---
Today's Communication
-
ID recs for antibiotics
Following cultures
Diet as tolerated
Continue oral hygiene
Will schedule outpatient follow-up for 07/11
Assessment / Plan
-
29F with [facility] Crohn's on Remicade, chronic pain, anxiety now 2 days s/p debridement of the left maxilla at site #11 progressing according to a normal post-operative course. Will follow cultures and ID recommendations for antibiotics.
Subjective Data
-
29F 2 days s/p debridement of the maxilla at site #11. She has been having pain from the site on and off.
Objective Data
-
Vitals, I&O and Lab Results:
Vital Signs
Temp Pulse Resp BP Pulse Ox
36.9 C 101 18 105/72 96
07/06/24 11:41 07/06/24 11:41 07/06/24 11:41 07/06/24 11:41 07/05/24 08:20
Intake and Output
07/05/24 07/06/24 07/07/24
06:59 06:59 06:59
Intake Total 250 / 250
Output Total 375 / 375
Balance -375 / -375 250 / 250
Intake:
Oral fluids 250 / 250
Output:
Urine, Dee 375 / 375
Lab Data
07/05/24 06:19
07/04/24 12:06
Plt Count 322 10^3/uL (130-400) 07/05/24 06:19
Microbiology
07/06/24 11:19 Nasal Screen MRSA (PCR) - Pending
Nose
07/04/24 17:45 Wound Culture - Preliminary
Abscess Streptococcus species
Gram Stain - Preliminary
07/04/24 17:45 Tissue Culture - Preliminary
Bone Streptococcus species
Gram Stain - Preliminary
07/04/24 17:45 Anaerobic Culture - Preliminary
Abscess Culture pending. Anaerobic cultures are examined after 3
days incubation. Additional information to follow.
Physical Exam
-
E/O: No swelling
I/O: No purulence. Sutures in place. Gingival edema consistent with procedure.
[2024-07-06] MEDS: INVANZ 60 MG IV (12:15)
--- NOTE | 2024-07-06 13:29 | PN.CDI ---
CDI
- -
CDI:
Physician Documentation Request
Admit Date: 07/04/24 12:07
Dear Doctor Samra,
Clinical Indicators:
Patient admitted with dental infection.
07/04 Operative Report, Debridement of the left maxilla at site #11...Bone graft material was debrided from the site using a curette. All unconsolidated bone graft material was removed. '
Could you provide, in the progress notes further clarification regarding the debridement.
Please specify the type of debridement performed:
1. Excisional Debridement - defined as removal by excision of devitalized tissue, necrosis or slough
2. Non-excisional debridement - defined as removal of devitalized tissue, necrosis or slough by such methods as irrigation, brushing, scrubbing or washing.
Use of terms such as suspected, likely, concern for, or probable (associated with a specific diagnosis that is being evaluated, monitored, or treated as if it exists) are acceptable and can be coded in the inpatient setting, when documented at the
time of discharge.
Thank you,
Emilee Pradhan RN BSN
CDI Specialist
available via tiger text
Please use your independent medical judgment in providing your response.
--- NOTE | 2024-07-06 13:41 | PN.CDI ---
CDI
- -
CDI:
Physician Documentation Request
Admit Date: 07/04/24 12:07
Dear Doctor Spike,
Clinical Indicators:
Patient admitted with Left maxillary sinusitis.
PMH includes: Chronic pain syndrome
Home medications include: Oxycodone 10 mg tablet 10 mg PO QID
Oxycodone 10 po HS PRN chronic pain
Hydromorphone 4 mg po q4h prn severe breakthrough pain
Based on the above, could you clarify in the progress notes, the appropriate diagnosis, if significant, that supports the above medication usage:
Opioid use with dependence
Opioid use only
Other
Use of terms such as suspected, likely, concern for, or probable (associated with a specific diagnosis that is being evaluated, monitored, or treated as if it exists) are acceptable and can be coded in the inpatient setting, when documented at the
time of discharge.
Thank you,
Emilee Pradhan RN BSN
CDI Specialist
available via tiger text
Please use your independent medical judgment in providing your response.
--- NOTE | 2024-07-06 14:51 | W.PN.HOSP.TC ---
Today's Communication/Plan
-
Continue current antibiotic regimen per ID
Follow over culture data
Assessment / Plan
Assessment / Plan
Left maxillary sinusitis-s/p removal of bone graft 07/04. Remains afebrile. White count normal on adx. OR cx with Strep sp -await final Identification. ID input noted - recommends IV abx pending final cx data. Hold on mid/picc line till cx is
reported.
Skin rash-suspected fungal-continue topical antifungal
Chronic pain syndrome-continue with her home regimen. Offered to switch to p.o. Dilaudid which she normally takes at home as a transition for home which is likely tomorrow but she would like to stay on IV Dilaudid for today. . Discussed about
addiction potential of each IV dose of dilaudid . cw bowel regimen prn.
History of inflammatory polyarthropathy.
Crohn's disease-no flare. On Remicade as outpatient.
Anxiety/depression-continue the home medication
Full code
Anticipated Discharge: Within 24 hours
Subjective/Interval History
-
Date of Service: July 06, 2024
Still with the left upper toothache after surgery.
No fevers.
Objective Data
-
Vital Signs:
Vital Signs
Temp Pulse Resp BP Pulse Ox
98.5 F 101 18 105/72 96
07/06/24 11:41 07/06/24 11:41 07/06/24 11:41 07/06/24 11:41 07/05/24 08:20
I&O
07/05/24 07/06/24 07/07/24
06:59 06:59 06:59
Intake Total 250 / 250
Output Total 375 / 375
Balance -375 / -375 250 / 250
Review of Systems
-
Respiratory: Denies Trouble Breathing
Cardiac: Denies Chest Pain
Abdomen/GI: Denies Abdominal Pain, Nausea, Vomiting or Constipated
Physical Exam
-
General: Comfortable
HEENT: Other (mild swelling of left cheek)
Respiratory: Non Labored Respirations; Negative Accessory Resp Muscle Use
Cardiac: Regular Rhythm and S1/S2
GI: Soft
Neuro: AO x 3
Psych: Calm
Data Reviewed
-
Labs: Labs Reviewed by me (Pending we will culture data)
[2024-07-06] MEDS: NSS (PRESERVATIVE FREE) 0.25 ML IV (16:00)
--- NOTE | 2024-07-06 16:06 | CM ---
Chart reviewed
For midline placement tomorrow
Poss d/c tomorrow or Wednesday based on ID finalized plan of care
LM for Oralia at [facility] to update on plan
Plan - anticipate home with [facility] once final plan confirmed
[2024-07-06] MEDS: ATIVAN 0.5 MG IV (16:10)
--- NOTE | 2024-07-06 16:17 | PTCARENOTE ---
IV team in for Middline placement, patient premedicated with antianxiety medication as ordered and requested by patient
[2024-07-06 16:30] VITALS: BP 118/82
[2024-07-06] MEDS: LOVENOX 40 MG SC (18:04)
[2024-07-06 20:00] VITALS: BP 111/65
[2024-07-06] MEDS: NON-FORMULARY ITEM 1 UNIT PO ×2 (21:53→22:57)
[2024-07-06] MEDS: NON-FORMULARY ITEM 2 UNIT PO (21:53)
[2024-07-06] MEDS: PEPCID 20 MG PO (21:53)
[2024-07-06] MEDS: OXYCONTIN (CONTROLLED RELEASE) 10 MG PO (22:58)
[2024-07-06 23:31] VITALS: BP 112/72
[2024-07-07] MEDS: ROXICODONE 10 MG PO ×3 (05:41→14:36)
[2024-07-07 05:46] VITALS: BP 91/58
[2024-07-07] MEDS: NEURONTIN 300 MG PO ×2 (07:34→12:58)
[2024-07-07] MEDS: CYMBALTA DELAYED RELEASE 30 MG PO (07:34)
[2024-07-07] MEDS: VISBIOME 2 CAP PO (07:34)
[2024-07-07] MEDS: ROXICODONE PO ×3 (07:37→10:01)
[2024-07-07] MEDS: ATARAX 25 MG PO ×2 (07:38→12:57)
[2024-07-07] MEDS: DILAUDID 1 MG IV (07:54)
[2024-07-07 08:00] VITALS: BP 105/79
[2024-07-07] MEDS: CYMBALTA DELAYED RELEASE 60 MG PO (08:01)
--- NOTE | 2024-07-07 09:52 | W.PN.ID1 ---
Date of Service
Date of Service: July 07, 2024
Today's Communication
- stable for dc from ID perspective, has follow up with OMFS arranged
Assessment / Plan
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
Immunosuppression - Crohns on Remicaide
Intolerance to multiple medications: zosyn, augmetnin, doxycycline, metronidazole
- tissue culture: strep and H flu (beta lactamase negative)
- c/w ertapenem - tolerating - plan two week total course
- discussed alternatives (clindamycin plus IV ceftriaxone, with potentially higher risk of C difficile, without markedly different spectrum. Note that she refuses metronidazole. Would avoid unasyn given potential issues with eosinophilic rash
with augmentin) she prefers to continue with ertapenem which is reasonable
- weekly labs to be sent to my office while on outpatient IV antibiotics
- probiotics while on broad spectrum therapy
- stable for dc from ID perspective, has follow up with OMFS arranged
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
Chief Complaint
-: Other (odontogenic infection)
Subjective / Review of Systems
afebrile
bp overall stable
cultures back
no events overnight
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
Vital Signs / Physical Exam
Vital Signs
Vital Signs
Temp Pulse Resp BP Pulse Ox
98 F 95 18 91/58 96
07/07/24 05:46 07/07/24 05:46 07/07/24 05:46 07/07/24 05:46 07/05/24 08:20
Physical Exam
Constitutional: No Acute Distress
Head: Other (minimal L nasolabial facial swelling)
Cardiovascular: Regular Rate and S1/S2; Negative Murmur or Rub
Pulmonary: Clear and Symmetric; Negative Wheezes or Rales
Gastrointestinal: Soft, Non Tender, Non Distended and Normal Bowel Sounds
Skin: Warm and Dry; Negative Rash (previous pustlar rash on the arm and trunk resolved) or Jaundice
Lines: Other (midline in place)
Objective Data
Lab Data
Lab Results
07/05/24 06:19
07/04/24 12:06
ESR 24 mm/hour (0-20) H 07/05/24 06:19
PT 13.3 Sec (11.4-14.6) 07/04/24 12:06
INR 0.98 07/04/24 12:06
APTT 31.8 Sec (23.4-35.0) 07/04/24 12:06
Estimated Creat Clear 103 ml/min 07/04/24 12:06
C-Reactive Protein < 5.00 mg/L (0.0-10.00) 07/05/24 06:19
Most recent labs reviewed.
Micro Results:
07/04/24 17:45 Wound Culture - Preliminary
Abscess Streptococcus species
Haemophilus parainfluenzae
Gram Stain - Preliminary
07/04/24 17:45 Tissue Culture - Preliminary
Bone Streptococcus species
Gram Stain - Preliminary
07/06/24 11:19 Nasal Screen MRSA (PCR) - Final
Nose MRSA not detected - performed by PCR methodology.
07/04/24 17:45 Anaerobic Culture - Preliminary
Abscess Culture pending. Anaerobic cultures are examined after 3
days incubation. Additional information to follow.
Care Review
Plan reviewed with: Physician (Dr Lala - antibiotics, dispo)
--- NOTE | 2024-07-07 10:16 | CM ---
Chart reviewed. Met with pt
Per Dr Morse - midline placed yesterday. No changes to IV antibiotics
Spoke with Oralia at [facility] - updated. Per Oralia will do teaching at bedside between 12-12:30PM
RN and pt updated of plan for teaching today. Meds to be delivered to pts home this PM
Clinical and midline info faxed to [facility]
Plan - anticipate home with [facility]
[2024-07-07] MEDS: KLONOPIN 1 MG PO (11:20)
[2024-07-07] MEDS: INVANZ 60 MG IV (12:44)
--- NOTE | 2024-07-07 14:22 | W.PN.HOSP.TC ---
Addendum entered and electronically signed by Davy Lala MD 07/08/24 16:50:
Chronic pain syndrome-patient has opioid use with dependency.
Original Note:
Today's Communication/Plan
-
DC
Assessment / Plan
Assessment / Plan
Left maxillary sinusitis-s/p removal of bone graft 07/04. Remains afebrile. White count normal on adx. OR cx with Strep sp and H Parainflunezae - ID input noted - recommends IV abx as OP. Midl line in place. OP abx arranged.
Skin rash-suspected fungal-continue topical antifungal
Chronic pain syndrome-continue with her home regimen. Offered to switch to p.o. Dilaudid which she normally takes at home as a transition for home which is likely tomorrow but she would like to stay on IV Dilaudid for today. . Discussed about
addiction potential of each IV dose of dilaudid . cw bowel regimen prn.
History of inflammatory polyarthropathy.
Crohn's disease-no flare. On Remicade as outpatient.
Anxiety/depression-continue the home medication
Full code
DW ID ok for DC
DW CM abx are set up at home
Total time of dc 32 min
Anticipated Discharge: Today
Subjective/Interval History
-
Date of Service: July 07, 2024
No fever or chills.
Tolerating oral intake.
Objective Data
-
Vital Signs:
Vital Signs
Temp Pulse Resp BP Pulse Ox
98.1 F 99 18 105/79 96
07/07/24 08:00 07/07/24 08:00 07/07/24 08:00 07/07/24 08:00 07/05/24 08:20
I&O
07/06/24 07/07/24 07/08/24
06:59 06:59 06:59
Intake Total 250 / 250
Output Total 375 / 375
Balance -375 / -375 250 / 250
Review of Systems
-
EENT: Denies Sore Throat
Respiratory: Denies Cough or Trouble Breathing
Cardiac: Denies Chest Pain
Abdomen/GI: Denies Nausea, Vomiting or Diarrhea
Neuro: Denies Dizzy
Physical Exam
-
HEENT: Other (improved left cheek swelling)
Respiratory: Non Labored Respirations; Negative Accessory Resp Muscle Use
Cardiac: Regular Rhythm and S1/S2
GI: Soft
Neuro: AO x 3
== END 2024-07-07 15:15 | disposition home health service (06) | DRG 908 ==
LOC: LDRP 12:07
PROVIDERS: Physician Assistant Medical; ADMITTING PHYSICIAN Internal Medicine; CONSULT PHYSICIAN Dentist Oral and Maxillofacial Surgery; CONSULT PHYSICIAN Student in an Organized Health Care Education/Training Program; EMERGENCY PHYSICIAN Emergency Medicine; FAMILY PHYSICIAN Physician Assistant Medical
PROC: 0NBR0ZZ Excision of Maxilla, Open Approach (ICD-10-PCS; 2024-07-04)
DX: T86.832 Bone graft infection (principal); D84.821 Immunodeficiency due to drugs; K50.90 Crohn's disease, unspecified, without complications; L03.211 Cellulitis of face; F11.20 Opioid dependence, uncomplicated; J32.0 Chronic maxillary sinusitis; G89.4 Chronic pain syndrome; F41.9 Anxiety disorder, unspecified; M27.2 Inflammatory conditions of jaws; B95.5 Unspecified streptococcus as the cause of diseases classified elsewhere; B36.9 Superficial mycosis, unspecified; Y83.8 Other surgical procedures as the cause of abnormal reaction of the patient, or of later complication, without mention of misadventure at the time of the procedure; Z79.620 Long term (current) use of immunosuppressive biologic; Z88.1 Allergy status to other antibiotic agents; Z79.899 Other long term (current) drug therapy
CPT/HCPCS: 88304; 88311; 80048; 84443; 85025; 85027; 85610; 85652; 85730; 86140; 87070; 87075; 87077; 87176; 87185; 87205; 87641; 99285; J1335

== ENCOUNTER 2024-07-30 15:15 | Inpatient (IN) | payer OTHER, SELFPAY ==
[2024-07-30 10:31] VITALS: BP 118/86
--- NOTE | 2024-07-30 10:40 | ED.GENMED ---
History of Present Illness
General
Chief Complaint: Eye Problems
Time Seen by Provider: 07/30/24 10:39
History of Present Illness
History of Present Illness:
TIME OF INITIAL ENCOUNTER: 10:40 AM
HPI: The patient is immunosuppressed on Remicade for Crohn's. She was admitted here for IV antibiotics and bone graft removal last month. She had root canals of teeth 8 9 and 10. Tooth #11 was removed a few months ago. The snuff grinder and oral
surgeon were concerned about infection after the root canal and was placed on clindamycin. The day after she started clindamycin, she developed a rash. This morning she had blurred vision to the left eye.
EXAM:
GENERAL: Well appearing in minimal distress
HEENT: There is some vague erythema noted to the inferomedial to the left orbit, there is mild to moderate left maxillary tenderness but no palpable abscess, visual acuity 20/25 right, 20/25 left, no field cuts
CARDIOVASCULAR: No murmurs, borderline tachycardic heart rate but currently 92 on my evaluation initially, regular rhythm, No chest wall tenderness
PULMONARY: No respiratory distress, breath sounds are clear and equal
ABDOMEN: Soft with no peritoneal signs, no tenderness
NEUROLOGIC: Excellent strength all extremities, no coordination deficits
PSYCHIATRIC: Appropriate mental status, normal insight and judgement
EXTREMITIES: Nontender, no edema, moves all extremities equally
SKIN: As above
NUMBER AND COMPLEXITY OF PROBLEMS ADDRESSED AT THE ENCOUNTER
� Chronic conditions affecting care: Celiac disease, Crohn's disease on Remicade, OCD, anxiety, had root canals in late 2023
� Acute Exacerbation and/or Progression of Chronic Illness: This is an acute but recurring problem
� Differential Diagnosis includes: Facial infection, facial cellulitis, no palpable abscess
AMOUNT AND/OR COMPLEXITY OF DATA TO BE REVIEWED AND ANALYZED
� I performed an independent evaluation of and my interpretation is:
EKG:
CT:
X-rays:
Laboratory Studies: White count normal but sed rate is 78 (higher than prior), chemistries unremarkable, CRP less than 5
Other:
� Review of other/old records: I reviewed records. The patient was admitted here just under 1 month ago with left maxillary sinusitis and had bone graft removal 07/04/2024. Oral cultures grew prep species and H parainfluenza and
was on IV antibiotic and discharged with midline. Records indicate that she has intolerance to multiple medications including Zosyn, Augmentin, doxycycline and Flagyl. She was placed on ertapenem.
� Clinical information was obtained by an independent historian: I spoke to at bedside
� Prescriptions/Medications Considered but not given:
� Further testing considered but not performed: No clear indication for imaging at this time
RISK OF COMPLICATIONS AND/OR MORBIDITY OR MORTALITY OF PATIENT MANAGEMENT
� Social determinants of health affecting care: Lives at home
� Discussion with other providers: Discussed case with Dr. Morse who recommends admission to the hospital and she will see in the hospital tomorrow. Hospitalist for admission.
� Escalation of care including admission/observation vs risk of discharge considered: I attempted to arrange this to be performed as an outpatient. We did have a midline placed however case management could not arrange for
outpatient IV ertapenem again.
ANY OTHER UPDATES:
Past History
Past History
ED Past Medical History: Other (Crohn's disease, celiac, IBS, anxiety)
ED Past Surgical History: Orthopedic and Other (Bowel surgery)
Social History
Tobacco: Non-smoker
Alcohol: Occasional
Drug: None
Personal: Other (Engage)
Living: with family
Employment: Employed
Family History
Family History: Other (her dads mother had Juvenile RA, mother has palpitations)
Phy Exam
Physical Exam
Physical Exam:
See HPI
Sepsis
Sepsis Screening
Sepsis Assessment: Sepsis Ruled Out
Sepsis Screen
Sepsis Screen: Sepsis Ruled Out
Date: 07/30/24
Time: 14:37
Course
Orders/Labs/Results
Orders:
Orders
07/30/24 11:22
Midline IV As Directed
Comment:: oysterman abx
07/30/24 11:33
Case Management Consult ONCE
Case Management Consult: Other
VN/Home Care
07/30/24 11:41
Lorazepam [Ativan] 1 mg PO NOW STA
07/30/24 12:06
Ertapenem [Invanz] 1,000 mg 0.9% Sodium Chloride [Nss] 50 ml IV NOW
07/30/24 12:10
Basic Metabolic Panel Urgent
CRP [C-Reactive Protein] Urgent
Complete Blood Count/With Diff Urgent
ESR [Erythrocyte Sed Rate] Urgent
Abnormal Lab Results
07/30/24
12:10
Hct 35.2 L %
(37.0-47.0)
Absolute Monos (auto) 0.7 H 10^3/uL
(0.1-0.6)
Absolute Eos (auto) 0.8 H 10^3/uL
(0-0.7)
Eosinophils % 9.3 H %
(0-6)
ESR 78 H mm/hour
(0-20)
07/30/24 12:10
07/30/24 12:10
Vital Signs
Temp: 36.9 C
Pulse: 92
Initial and Last Documented VS:
Initial Vital Signs
Pulse Resp BP Pulse Ox
118 16 118/86 98
07/30/24 10:31 07/30/24 10:31 07/30/24 10:31 07/30/24 10:31
Last Documented Vital Signs
Temp Pulse Resp BP Pulse Ox
36.9 C 106 24 105/76 98
07/30/24 11:25 07/30/24 13:15 07/30/24 13:15 07/30/24 12:00 07/30/24 10:31
*Critical Care Note
Total Time (30-74mins, 75-104mins- exclusive of procedures): Not Applicable
ED Attending Note
-
Portions of this chart may have been created with voice recognition software.� Occasional wrong word or��sound alike� substitutions may have occurred due to the inherent limitations of voice recognition software.
Discharge Plan
Departure
Patient Disposition: Admit
Date of Disposition: 07/30/24
Time of Disposition: 13:28
Presentation/result/management discussed w/ accepting MD/DO: Hospitalist
Discharge Problem:
Facial infection
Prescriptions:
No Action
oxycodone 10 mg Tablet
10 mg PO QID@07,12,17,21
Patient Comments:
05/26/24: last filled 05/15/24 for 150 tablets over 30 days
clonazepam 1 mg Tablet
1 mg PO BID@1130,2300
fexofenadine 180 mg Tablet
360 mg PO HS
Patient Comments:
05/26/24: She gets special 360mg tabs from [facility].
acetaminophen [Tylenol Extra Strength] 500 mg Tablet
1,000 mg PO Q6HPRN PRN (Reason: mild pain)
famotidine [Pepcid] 20 mg Tablet
20 mg PO HS
ascorbic acid (vitamin C) [Vitamin C] 500 mg Tablet
500 mg PO BID
infliximab [Remicade] 100 mg Recon Soln
7.5 mg IV Q6W
Rx Instructions:
7.5 mg/kg
gabapentin 300 mg Capsule
300 mg PO QID@,,,
hydroxyzine pamoate 25 mg capsule
25 mg PO QID@,,,
duloxetine [Cymbalta] 30 mg Capsule,Delayed Release(Dr/Ec)
30 mg PO DAILY
Rx Instructions:
take with 60mg
duloxetine [Cymbalta] 60 mg Capsule,Delayed Release(Dr/Ec)
60 mg PO DAILY
Rx Instructions:
take with 30mg
melatonin 10 mg Tablet
10 mg PO HS@2300
oxycodone [OxyContin] 10 mg Tablet,Oral Only,Ext.Rel.12 Hr
10 mg PO HS@2300
vitamin A 3,000 mcg (10,000 unit) Capsule
3,000 mcg PO HS
therapeutic multivitamin Tablet
1 tab PO HS
Patient Comments:
07/04/24: Patient would like to use their own brand
hydromorphone 4 mg Tablet
4 mg PO Q4HPRN PRN (Reason: severe breakthrough pain)
Patient Comments:
Pt reports 'I took 2 mg so I split it in half'
Visbiome 112.5 billion cell capsule
2 cap PO DAILY Qty: 30 0RF
oxycodone 10 mg Tablet
10 mg PO HSPRN PRN (Reason: severe pain)
Patient Comments:
05/26/24: last filled 05/15/24 for 150 tablets over 30 days
promethazine 25 mg Tablet
12.5 mg PO Q6HPRN PRN (Reason: nausea and vomiting) Qty: 15 0RF
loperamide [Imodium A-D] 2 mg capsule
2 mg PO Q6HPRN PRN (Reason: loose stool)
lidocaine HCl [Lidocaine Viscous] 2 % solution
10 ml mucous membrane QIDPRN PRN (Reason: mouth pains)
clotrimazole 1 % cream
1 applic topical BIDPRN PRN (Reason: body rash)
fexofenadine 180 mg Tablet
180 mg PO Q24H
Ertapenem [Invanz] 1000 MG
0.9% Sodium Chloride [Nss] 50 ML
120 mls/hr IV Q24H
Ordered By: Davy Lala MD
Last Taken: Unknown
Referrals:
L[place] Hughes,Nadege, PA [Family Provider] -
Interventions
Interventions:
*Risk Screen - Suicide Last Done: 07/30/24 10:31
*General Assessment Last Done: 07/30/24 11:27
*Neglect/Abuse Screening Last Done: 07/30/24 10:31
ED- Fall Risk Assessment Last Done: 07/30/24 11:27
*ED COVID-19 Vaccine History Last Done: 07/30/24 11:27
Discharge Date and Time
Print Language: INDONESIAN
[2024-07-30 11:26] VITALS: BMI 26.9
[2024-07-30 11:30] VITALS: BP 109/72
[2024-07-30 12:00] VITALS: BP 105/76
[2024-07-30] MEDS: ATIVAN 1 MG PO (12:05)
--- NOTE | 2024-07-30 12:10 | CM ---
ED CM consulted for set up of IV abx
Bedside meeting with pt and finance
Pt recently admitted to
Pt and wesley reside with her parents in a 2SH, 2STE
Full flight to 2nd floor
Pt recently receiving home abx through [facility]
PCP- Nadege Dyson
Rx- [facility]
Call with [facility] on-call pharmacist- they noted she was closed to service a few days prior
New referral and set up will be required
Not able to process new referral on weekend
CM to follow up during next business day regarding IV abx set up through [facility]
Discussed with physician- plan for mid-line to be placed today
Will await abx script
Discharge Disposition- home with new abx through [facility]
[2024-07-30 13:04] LABS: % Basophils 0.5 % (0-2); % Eosinophils 9.3 % (0-6); % Immature Granulocytes 0.4 % (0-0.5); % Lymphocytes 29.6 % (20.5-51.1); % Monocytes 8.2 % (1.7-9.3); Absolute Eosinophils 0.8 10^3/uL (0-0.7); Absolute Lymphocytes 2.5 10^3/uL (1.2-3.4); Absolute Monocytes 0.7 10^3/uL (0.1-0.6); Absolute Neutrophils 4.4 10^3/uL (1.4-6.5); Hematocrit 35.2 % (37.0-47.0); Mean Corp Hgb Conc. 34.1 g/dL (33.0-37.0); Mean Corpuscular Hgb 28.4 pg (27.0-31.0); Mean Corpuscular Volume 83.2 fL (81.0-99.0); Mean Platelet Volume 9.7 fL (7.4-10.4); Nucleated Red Blood Cells % 0 %; Platelet Count 261 10^3/uL (130-400); Red Blood Cell Count 4.23 10^6/uL (4.20-5.40); Red Cell Dist. Width 12.7 % (11.5-14.5); White Blood Cell Count 8.5 10^3/uL (4.8-10.8)
[2024-07-30] MEDS: INVANZ 60 MG IV (13:10)
[2024-07-30 13:11] LABS: Erythrocyte Sed Rate 78 mm/hour (0-20)
[2024-07-30 13:30] LABS: Blood Urea Nitrogen 17 mg/dl (7-17); Carbon Dioxide 27 mmol/L (22-30); Chloride 100 mmol/L (98-107); Estimated Creatinine Clearance 90 ml/min; Glucose 91 mg/dl (70-99); Potassium 4.3 mmol/L (3.5-5.1); Sodium 137 mmol/L (135-145); eGFR > 60.00
[2024-07-30 13:37] LABS: C-Reactive Protein < 5.00 mg/L (0.0-10.00)
[2024-07-30 14:00] VITALS: BP 104/74
--- NOTE | 2024-07-30 14:39 | HPS.HSE ---
Family Physician
-
Family Physician: Nadege Dyson
Chief Complaint
-
Vision change after dental procedure
History of Present Illness
29 woman who is immunosuppressed on Remicade for Crohn's. She was admitted here for IV antibiotics and bone graft removal last month. She recently had root canals of teeth 8 9 and 10. Tooth #11 was removed a few months ago. The ampoule filler and
oral surgeon were concerned about infection after the root canal and she was placed on oral clindamycin. The day after she started clindamycin, she developed a rash, on legs, arms and trunk. This morning she had blurred vision to the left eye. At
the time of my interview she was not in distress. The rash was not getting spreading, like it was before. She has a complex pain regimen requiring large doses of opioids.
Medical History
Past Medical History
Past Medical History: Reports Other
Additional Past Medical History:
Apudoma of skin
halfway (current) use of opiate analgesic
Other obsessive-compulsive disorder
Crohn's disease, unspecified, without complications
Obsessive-compulsive disorder
Mild episode of recurrent major depressive disorder
Crohn's disease
Mood disorder
Constipation,
Rectal prolapse
Celiac disease
Palpitations
Abdominal pain
Gastrointestinal Crohn's disease
Chronic pain syndrome
major depressive disorder with psychotic features
Anxiety
Past Surgical History: Reports Other
Additional Past Surgical History:
recent oral surgery
See above
Social History
Tobacco: Non-smoker
Alcohol: None
Drug: None
Family History
Family History: Not pertinent
Allergies / Home Medications
Allergies reflects when Allergies were last updated in [facility].
Home Medications with original date entered in [facility]
Allergy/Medication List:
Allergies
Allergy/AdvReac Type Severity Reaction Status Date / Time
amoxicillin [From Augmentin] Allergy Intermediate Rash Verified 07/07/24 10:49
clavulanic acid Allergy Intermediate Rash Verified 07/07/24 10:49
[From Augmentin]
egg Allergy Anaphylaxis Verified 07/04/24 09:25
gluten Allergy stomach Verified 07/04/24 09:25
pain
prochlorperazine Allergy Akathesia Verified 07/04/24 09:25
shrimp Allergy Unknown Verified 07/04/24 09:25
tree nut Allergy Hives Verified 07/04/24 09:25
piperacillin [From Zosyn] AdvReac Severe Severe Verified 07/04/24 09:25
arthritic
pain
tazobactam [From Zosyn] AdvReac Severe Severe Verified 07/04/24 09:25
arthritic
pain
doxycycline AdvReac Nausea / Verified 07/04/24 16:36
Vomiting
metronidazole AdvReac Nausea / Verified 07/04/24 16:36
Vomiting
Home Medications
oxycodone 10 mg tablet 10 mg PO QID@07,12,17,21 02/12/23
acetaminophen 500 mg tablet (Tylenol Extra Strength) 1,000 mg PO Q6HPRN PRN mild pain 01/15/24
ascorbic acid (vitamin C) 500 mg tablet (Vitamin C) 500 mg PO BID Supplement 01/15/24
clonazepam 1 mg tablet 1 mg PO BID@1130,2300 Mental Health/Anxiety 01/15/24
duloxetine 30 mg capsule,delayed release (Cymbalta) 30 mg PO DAILY mental health 01/15/24
duloxetine 60 mg capsule,delayed release (Cymbalta) 60 mg PO DAILY mental health 01/15/24
famotidine 20 mg tablet (Pepcid) 20 mg PO HS Gastrointestinal Issue 01/15/24
fexofenadine 180 mg tablet 360 mg PO HS Allergies 01/15/24
gabapentin 300 mg capsule 300 mg PO QID@08,13,18,22 Neurological Condition 01/15/24
hydroxyzine pamoate 25 mg capsule 25 mg PO QID@08,13,18,22 Mental Health/Anxiety 01/15/24
infliximab 100 mg intravenous solution (Remicade) 7.5 mg IV Q6W Crohn's disease 01/15/24
melatonin 10 mg tablet 10 mg PO HS@2300 Sleep 01/15/24
oxycodone 10 mg tablet,crush resistant,extended release 12 hr (OxyContin) 10 mg PO HS@2300 chronic pain 01/15/24
vitamin A 3,000 mcg (10,000 unit) capsule 3,000 mcg PO HS Supplement 02/26/24
hydromorphone 4 mg tablet 4 mg PO Q4HPRN PRN severe breakthrough pain 05/09/24
therapeutic multivitamin 1 tab PO HS Supplement 05/09/24
Lactobac no.2-Bifidobac no.1-S. thermo 112.5 billion cell capsule (Visbiome) 2 cap PO DAILY #30 caps 05/14/24
oxycodone 10 mg tablet 10 mg PO HSPRN PRN severe pain 05/26/24
promethazine 25 mg tablet 12.5 mg (1/2 x 25 mg) PO Q6HPRN PRN nausea and vomiting #15 tabs 05/30/24
clotrimazole 1 % topical cream 1 applic topical BIDPRN PRN body rash 07/04/24
fexofenadine 180 mg tablet 180 mg PO Q24H 07/04/24
lidocaine HCl 2 % mucosal solution (Lidocaine Viscous) 10 ml mucous membrane QIDPRN PRN mouth pains 07/04/24
loperamide 2 mg capsule (Imodium A-D) 2 mg PO Q6HPRN PRN loose stool 07/04/24
Ertapenem [Invanz] 1,000 mg 120 mls/hr IV Q24H 07/07/24
Review of Systems
-
History Source: Patient
A 12 point ROS was completed and negative except as noted: Yes
Physical Exam
Vital Signs
Vital Signs
Temp Pulse Resp BP Pulse Ox
98.4 F 106 24 105/76 98
07/30/24 11:25 07/30/24 13:15 07/30/24 13:15 07/30/24 12:00 07/30/24 10:31
Physical Exam
General: Well Developed, Well Nourished, No Apparent Distress and Comfortable
HEENT: NormoCephalic, Moist mucous membranes, Nose Appears Normal and Ears Appear Normal
Respiratory: Clear
Cardiac: S1/S2 and Regular Rhythm
GI: Soft, Non Tender and Non Distended
Musculoskeletal: No Clubbing, No Cyanosis and No Edema
Skin: Warm, Dry and Rash
Neuro: Awake, Alert, Oriented and AO x 3
Psych: Calm
Laboratory Results
-
07/30/24 12:10
07/30/24 12:10
Data Reviewed
-
Lab Data: Labs Reviewed by me
Impression/Plan
-
IMPRESSION:
29 woman with infected root canal and allergy to oral antibiotic. Complex PMH.
PLAN:
1. Root canal infection
-Ertapenem per ID rec.
-shared services and outsourcing manager to help with transition to home care with PICC line
-Follow vision status closely
If worsening, get MRI of head
2. Complex pain syndrome with large dosages of opioids
Follow current med regimen
3. Chronic known problems:
Apudoma of skin
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
Other obsessive-compulsive disorder
Crohn's disease, unspecified, without complications
Obsessive-compulsive disorder
Mild episode of recurrent major depressive disorder
Crohn's disease
Mood disorder
Constipation,
Rectal prolapse
Celiac disease
Palpitations
Abdominal pain
Gastrointestinal Crohn's disease
Chronic pain syndrome
major depressive disorder with psychotic features
Anxiety
- Continue home meds
Full code
VCD for DVTp
[2024-07-30 15:00] VITALS: BP 110/67
[2024-07-30] MEDS: ROXICODONE 10 MG PO ×2 (17:04→20:39)
[2024-07-30] MEDS: NEURONTIN 300 MG PO ×2 (18:15→22:58)
[2024-07-30] MEDS: ATARAX 25 MG PO ×2 (18:15→22:24)
[2024-07-30] MEDS: VITAMIN C 500 MG PO (20:39)
[2024-07-30 20:45] VITALS: BP 102/68
[2024-07-30] MEDS: NON-FORMULARY ITEM 360 MG PO (22:22)
[2024-07-30] MEDS: PEPCID 20 MG PO (22:23)
[2024-07-30] MEDS: THERAGRAN 1 TABLET PO (22:23)
[2024-07-30] MEDS: MELATONIN 10 MG PO (23:40)
[2024-07-30] MEDS: KLONOPIN 1 MG PO (23:41)
[2024-07-30] MEDS: OXYCONTIN (CONTROLLED RELEASE) 10 MG PO (23:41)
[2024-07-31] MEDS: DILAUDID 4 MG PO (03:38)
[2024-07-31 03:42] VITALS: BP 92/51
[2024-07-31 06:02] LABS: Hematocrit 35.4 % (37.0-47.0); Mean Corp Hgb Conc. 33.9 g/dL (33.0-37.0); Mean Corpuscular Hgb 28.2 pg (27.0-31.0); Mean Corpuscular Volume 83.1 fL (81.0-99.0); Mean Platelet Volume 9.9 fL (7.4-10.4); Platelet Count 268 10^3/uL (130-400); Red Blood Cell Count 4.26 10^6/uL (4.20-5.40); Red Cell Dist. Width 12.7 % (11.5-14.5)
[2024-07-31 06:26] LABS: Blood Urea Nitrogen 20 mg/dl (7-17); Calcium 8.8 mg/dl (8.4-10.2); Carbon Dioxide 28 mmol/L (22-30); Chloride 101 mmol/L (98-107); Estimated Creatinine Clearance 90 ml/min; Glucose 89 mg/dl (70-99); Potassium 4.2 mmol/L (3.5-5.1); Sodium 139 mmol/L (135-145); eGFR > 60.00
[2024-07-31] MEDS: CYMBALTA DELAYED RELEASE 30 MG PO ×3 (08:22→08:23)
[2024-07-31] MEDS: VITAMIN C 500 MG PO (08:23)
[2024-07-31] MEDS: ROXICODONE 10 MG PO ×3 (08:23→17:12)
[2024-07-31] MEDS: ATARAX 25 MG PO ×2 (08:23→13:56)
[2024-07-31] MEDS: VISBIOME 2 CAP PO (08:24)
[2024-07-31] MEDS: NEURONTIN 300 MG PO ×2 (08:24→13:56)
[2024-07-31] MEDS: CYMBALTA DELAYED RELEASE 60 MG PO (08:42)
[2024-07-31 09:37] VITALS: BP 111/58
--- NOTE | 2024-07-31 11:05 | CON.ID ---
Consultation
-
Date/Time Consultation Requested: 07/30/24 16:01
Date/Time Consultation Performed: 07/31/24 11:05
Requesting Provider: Dr Saenz
Performing Provider: Dr Morse
Reason for Consultation: Infected root canal and allergy to po abx
Chief Complaint / Past History
Chief Complaint
Vision change after dental procedure
History of Present Illness
Ms Olivia is a 29 year old femal with complicated medical history (please see previous consults) most notable for Crohns disease on remicaide q6 weeks, celiac disease, MDD/OCD with about a 3 month history of recurrent dental infections after
uncomplicated, outpatient dental procedures. She reports allergy/intolerance to most antibiotics including zosyn, augmentin, doxycycline, quinolones, metronidazole and clindamycin. She has previously seemed to tolerate ertapenem. There has been a
question as to whether a recurrent rash, eosinophilic dermatitis, by biopsy was due to remicaide - less likely ertapenem or previous augmentin. She has had the remicaide wednesday 06/27. She has further elective dental work done on 07/24 wtih
Je, 1 week ago. She reports that a panellipse at Dr Weller office showed possible endodontic infection of teeth 10, 9 and 8. 10 had last been intervened on in 2018; it was not addressed during her recent dental work in may. 10 in
particular was found to have possible endodontic infection with Dr Pozo. She was not initially started on perioperative antibotics. Then she noted increased swelling along the L nasolabial fold and erythema and tenderness 07/25 the day after
surgery. 07/[address] Wooten again and s he was started on oral clindamycin 300 mg QID, the day after the clindamycin she developed a rash on the trunk, arms and legs - raised, plaques, non pruritic. This rash is quite distinct from her
previous rash. She reports blurred vision in the L eye (ipsilateral to previous facial swelling). She tells me she is planned for further dental procedures down the road. She was planned for veners, but the teeth were 'overprepared' and now she
requires placement of further crowns.
Since arrival here she has been afebrile, bp stable, wbc count 8.5, hgb 12, plt 261, she has ongoing eosinophilia with AEC 0.8 on arrival before any ertapenem - note when last assessed 07/10/24 AEC was 0.6. Previous to this her last dose of
ertapenem was 07/18. Na 139, cr 0.8, crp <5, no imaging or cultures obtained. Currently on ertapenem; after the single dose of ertapenem the swelling has resolved. ID is consulted for assistance with management.
Past History
Additional Past Medical History:
Apudoma of skin
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
Other obsessive-compulsive disorder
Crohn's disease, unspecified, without complications
Obsessive-compulsive disorder
Mild episode of recurrent major depressive disorder
Crohn's disease
Mood disorder
Constipation,
Rectal prolapse
Celiac disease
Palpitations
Abdominal pain
Gastrointestinal Crohn's disease
Chronic pain syndrome
major depressive disorder with psychotic features
Anxiety
Additional Past Surgical History:
multiple dental surgeries
Allergy History:
amoxicillin [From Augmentin] Allergy (Intermediate, Verified 07/07/24 10:49)
Rash
clavulanic acid [From Augmentin] Allergy (Intermediate, Verified 07/07/24 10:49)
Rash
egg Allergy (Verified 07/04/24 09:25)
Anaphylaxis
gluten Allergy (Verified 07/04/24 09:25)
stomach pain
prochlorperazine Allergy (Verified 07/04/24 09:25)
Akathesia
shrimp Allergy (Verified 07/04/24 09:25)
Unknown
tree nut Allergy (Verified 07/04/24 09:25)
Hives
piperacillin [From Zosyn] Adverse Reaction (Severe, Verified 07/04/24 09:25)
Severe arthritic pain
tazobactam [From Zosyn] Adverse Reaction (Severe, Verified 07/04/24 09:25)
Severe arthritic pain
doxycycline Adverse Reaction (Verified 07/04/24 16:36)
Nausea / Vomiting
metronidazole Adverse Reaction (Verified 07/04/24 16:36)
Nausea / Vomiting
Medications Reviewed: Yes
Social History
Tobacco: Non-Smoker
Alcohol: None
Drug: None
Family History
Family History: Not Pertinent
Review of Systems
Review of Systems
General: Negative Fever or Chills
All systems: All other systems were reviewed and were negative
Vital Signs
Temp Pulse Resp BP Pulse Ox
98.0 F 103 16 111/58 98
07/31/24 09:37 07/31/24 09:37 07/31/24 09:37 07/31/24 09:37 07/30/24 10:31
Physical Exam
Physical Exam
Constitutional: No Acute Distress and Chronically Ill
Cardiovascular: Regular Rate and S1/S2; Negative Murmur or Rub
Pulmonary: Clear and Symmetric; Negative Wheezes, Rales or Rhonchi
Gastrointestinal: Soft, Non Tender, Non Distended and Normal Bowel Sounds
Skin: Warm and Dry; Negative Rash or Jaundice
Lab / Diagnostic Study Results
07/31/24 05:30
07/31/24 05:30
Abs Immat Gran (auto) 0.0 10^3/uL (0-0.05) 07/30/24 12:10
Absolute Neuts (auto) 4.4 10^3/uL (1.4-6.5) 07/30/24 12:10
Absolute Lymphs (auto) 2.5 10^3/uL (1.2-3.4) 07/30/24 12:10
Absolute Monos (auto) 0.7 10^3/uL (0.1-0.6) H 07/30/24 12:10
Absolute Basos (auto) 0.0 10^3/uL (0-0.2) 07/30/24 12:10
Immature Gran % 0.4 % (0-0.5) 07/30/24 12:10
Neutrophils % 52.0 % (42.2-75.2) 07/30/24 12:10
Lymphocytes % 29.6 % (20.5-51.1) 07/30/24 12:10
Monocytes % 8.2 % (1.7-9.3) 07/30/24 12:10
Eosinophils % 9.3 % (0-6) H 07/30/24 12:10
Basophils % 0.5 % (0-2) 07/30/24 12:10
ESR 78 mm/hour (0-20) H 07/30/24 12:10
C-Reactive Protein < 5.00 mg/L (0.0-10.00) 07/30/24 12:10
Assessment / Plan
Possible Odontogenic Infection
- will request records from her blocklayer Dr Jann Wooten to finalize regimen duration at least two weeks planned and possibly longer.
- she has remicaide scheduled for 08/08, I will discuss if this can be safely pushed back at least one week with her GI
- midline exchange for PICC in case of prolonged infusion
- c/w ertapenem 1 gm iv q24 hours - at least two weeks
- follow up with me in about 10 days
Rash - guttate psoriasis?
Persistent Eosinophilia
- relapse while off of ertapenem over 2 weeks
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
- note VARIETY SAW OPERATOR fexofenadine would continue
- discussed Remicade with GI
Note recent history of eosinophilic dermatitis - rash is quite distinct from that
Total time spent today was 63 minutes for this encounter.� Time included reviewing laboratory tests/imaging results, reviewing pertinent medical records, obtaining and reviewing medical history, performing an appropriate exam, ordering medications,
tests and procedures, and extensive history obtaining and counseling. �Time also included coordinating patient care and communicating with other health rn wound care.�
[2024-07-31] MEDS: KLONOPIN 1 MG PO (11:38)
--- NOTE | 2024-07-31 11:38 | CM ---
Addendum entered by Laurence Coppola 07/31/24 16:17:
[facility] to deliver meds tomorrow by 12PM per Oralia at [facility] [place]
Addendum entered by Laurence Coppola 07/31/24 13:55:
Per Oralia at [facility] - [facility] met with pt today to review teaching
Cost to pt - $30 co-pay per dispense
Pending line placement - line info to be sent to [facility] when available
Can deliver med this PM or in AM - time to be determined when line info obtained
ID consult faxed to [facility]
Plan - home with [facility] for home infusion; pending line placement
f - [phone]
Original Note:
Chart reviewed. Spoke with pt
Pt will need home infusion for IV Abx - received Infusion sheet
Spoke with pt - prefers [facility]
Spoke with Oralia at [facility] - updated of referral/pts needs
Clinical info (H&P, labs, infusion sheet, face sheet) faxed to [facility] [phone]
Awaiting acceptance by [facility]
Plan - anticipate home with [facility] pending acceptance
--- NOTE | 2024-07-31 12:25 | W.PN.HOSP.TC ---
Addendum entered and electronically signed by Thalia Ray MD 07/31/24 16:40:
total DC time 39 min
Original Note:
Today's Communication/Plan
-
DC home today with home infusion
Assessment / Plan
Assessment / Plan
HPI: 29 yo F who is immunosuppressed on Remicade for Crohn's, who was recently admitted here for IV antibiotics and bone graft removal last month, had root canals of teeth 8/9 and 10 (Tooth #11 was removed a few months ago), was placed on oral
clindamycin as core stacker and oral surgeon were concerned about infection after the root canal; p/w rash on legs, arms and trunk after oral clindamycin.
In the morning of admission, she had blurred vision to the left eye.
Of note, she has a complex pain regimen requiring large doses of opioids.
A/P:
# Root canal infection
Ertapenem per ID recc
CM on board for home Abx infusion
# blurred vision to the left eye, resolved
# Complex pain syndrome with chronic opiate dependence
Cont home meds
# Mild nummular erythematous skin rash
outpt derm eval
Other chronic medical problems
# Apudoma of skin
# Other obsessive-compulsive disorder
# Crohn's disease
# Obsessive-compulsive disorder
# Recurrent major depressive disorder
# Mood disorder
# Constipation,
# Rectal prolapse
# Celiac disease
# Palpitations
# Chronic pain syndrome
# Anxiety
Full code
VCD for DVTp
DW ID
DW CM
DW RN
DW family member at bedside
Anticipated Discharge: Today
Subjective/Interval History
-
Date of Service: July 31, 2024
Objective Data
-
Labs:
Laboratory Results
07/31/24
05:30
WBC 9.0
Hgb 12.0
Hct 35.4 L
Plt Count 268
Sodium 139
Potassium 4.2
Chloride 101
Carbon Dioxide 28
BUN 20 H
Creatinine 0.8
Glucose 89
Calcium 8.8
Vital Signs:
Vital Signs
Temp Pulse Resp BP Pulse Ox
36.7 C 103 16 111/58 98
07/31/24 09:37 07/31/24 09:37 07/31/24 09:37 07/31/24 09:37 07/30/24 10:31
I&O
07/30/24 07/31/24 08/01/24
06:59 06:59 06:59
Intake Total 450 / 450
Output Total 700 / 700
Balance -250 / -250
Review of Systems
-
All other systems: Reviewed and negative
Physical Exam
-
General: Well Developed, Well Nourished, No Apparent Distress, Comfortable and Conversant
Respiratory: Non Labored Respirations; Negative Accessory Resp Muscle Use
Cardiac: Regular Rhythm and S1/S2
GI: Soft, Nontender and Nondistended
Neuro: Awake and Alert
Psych: Calm and Intact Judgement/Insight
Data Reviewed
-
Labs: Labs Reviewed by me
[2024-07-31] MEDS: ATIVAN 0.5 MG IV (14:34)
[2024-07-31] MEDS: INVANZ 60 MG IV (14:45)
[2024-07-31] MEDS: PHENERGAN 12.5 MG PO (15:36)
--- NOTE | 2024-07-31 16:29 | W.DCSUMMARY ---
Discharge Summary
Discharge Data
Date of Admission: 07/30/24
Date of Discharge: 07/31/24
-
Pending Results: No
Hospital Course
Principal Diagnosis:
Root canal infection
Mild nummular erythematous skin rash
Chronic Diagnoses:�
Immunosuppressed on Remicade for Crohn's disease
Complex pain syndrome with chronic opiate dependence
Crohn's disease
Apudoma of skin
Obsessive-compulsive disorder
Recurrent major depressive disorder
Anxiety
Rectal prolapse
Celiac disease
Consultations:�
Infectious disease
Procedures:�
None
Clinical course:�
This is a 29-year-old female with past medical history as stated above, who presented with skin rash following oral clindamycin prescribed by her catering driver and oral surgeon for concern of root canal infection.
Problem 1:
Skin rash with concern of root canal infection.
Patient was started with ertapenem per infectious disease.
PICC line was placed this admission for continued IV antibiotic course, at least 2 weeks per ID.
Patient to follow with ID outpatient for further antibiotic recommendation.
She has been informed to follow-up with outpatient dermatology for her skin rash.
As for the rest of her medical problems, they were stable during her hospital stay.
Discharge Plan
-
Patient Disposition: Home (Routine Discharge)
Discharge Diagnosis/Procedures: Root canal infection
Condition: Good
Diet: As tolerated
Activity: As tolerated
Driving Restrictions: As prior to admission
Referrals:
Nadege Dyson PA [Family Provider] - in less than 1 week
Additional Discharge Medication Instructions: Continue IV Antibiotic Ertapenem per ID
Prescriptions:
New
Ertapenem [Invanz] 1000 MG
0.9% Sodium Chloride [Nss] 50 ML
100 mls/hr IV Q24H
Ordered By: Thalia Ray MD
Last Taken: 07/31/24 14:45 60 mls
Continued
oxycodone 10 mg Tablet
10 mg PO QID@07,12,17,21
clonazepam 1 mg Tablet
1 mg PO BID@1130,2300
fexofenadine 180 mg Tablet
360 mg PO HS
Patient Comments:
patient will provide
acetaminophen [Tylenol Extra Strength] 500 mg Tablet
1,000 mg PO Q6HPRN PRN (Reason: mild pain)
famotidine [Pepcid] 20 mg Tablet
20 mg PO HS
ascorbic acid (vitamin C) [Vitamin C] 500 mg Tablet
500 mg PO BID
infliximab [Remicade] 100 mg Recon Soln
7.5 mg IV Q6W
Rx Instructions:
7.5 mg/kg
gabapentin 300 mg Capsule
300 mg PO QID@,,,
hydroxyzine pamoate 25 mg capsule
25 mg PO QID@,,,
duloxetine [Cymbalta] 30 mg Capsule,Delayed Release(Dr/Ec)
30 mg PO DAILY
Rx Instructions:
take with 60mg
duloxetine [Cymbalta] 60 mg Capsule,Delayed Release(Dr/Ec)
60 mg PO DAILY
Rx Instructions:
take with 30mg
melatonin 10 mg Tablet
10 mg PO HS@2300
oxycodone [OxyContin] 10 mg Tablet,Oral Only,Ext.Rel.12 Hr
10 mg PO HS@2300
vitamin A 3,000 mcg (10,000 unit) Capsule
3,000 mcg PO HS
therapeutic multivitamin Tablet
1 tab PO HS
hydromorphone 4 mg Tablet
4 mg PO Q4HPRN PRN (Reason: severe breakthrough pain)
Patient Comments:
Pt reports 'I took 2 mg so I split it in half'
Visbiome 112.5 billion cell capsule
2 cap PO DAILY Qty: 30 0RF
oxycodone 10 mg Tablet
10 mg PO HSPRN PRN (Reason: severe pain)
polyethylene glycol 3350 [Miralax] 17 gram Powder In Packet
17 g PO DAILYPRN PRN (Reason: constipation)
docusate sodium 100 mg Tablet
300 mg PO DAILYPRN PRN (Reason: constipation)
Discharge Orders:
Discharge Patient (As Directed); Ordered 07/31/24
Ordered By: Thalia Ray
Discharge Date and Time
Print Language: TAJIK
[2024-07-31 17:09] VITALS: BP 99/59
--- NOTE | 2024-07-31 17:19 | VATNOTE ---
Per radiology report, PICC tip in good position in the SVC. OK to use. PCN notified, no other IVs in place, per PCN, no further infusions prior to discharge.
== END 2024-07-31 18:08 | disposition home or self-care (01) | DRG 158 ==
LOC: LDRP 15:15
PROVIDERS: Radiology Diagnostic Radiology; ADMITTING PHYSICIAN Internal Medicine; ATTENDING PHYSICIAN Internal Medicine; CONSULT PHYSICIAN Student in an Organized Health Care Education/Training Program; EMERGENCY PHYSICIAN Emergency Medicine; FAMILY PHYSICIAN Physician Assistant Medical
PROC: 02HV33Z Insertion of Infusion Device into Superior Vena Cava, Percutaneous Approach (ICD-10-PCS; 2024-07-31)
DX: K04.7 Periapical abscess without sinus (principal); D84.821 Immunodeficiency due to drugs; F33.0 Major depressive disorder, recurrent, mild; K50.90 Crohn's disease, unspecified, without complications; F11.20 Opioid dependence, uncomplicated; K90.0 Celiac disease; K62.3 Rectal prolapse; F42.8 Other obsessive-compulsive disorder; H53.8 Other visual disturbances; G89.4 Chronic pain syndrome; F41.9 Anxiety disorder, unspecified; Z88.0 Allergy status to penicillin; Z88.1 Allergy status to other antibiotic agents; Z79.899 Other long term (current) drug therapy; Z79.620 Long term (current) use of immunosuppressive biologic; Z79.2 Long term (current) use of antibiotics
CPT/HCPCS: 71045; 80048; 85025; 85027; 85652; 86140; 96365; 99285; J1335

== ENCOUNTER 2024-08-11 21:00 | Emergency (ER) | payer OTHER, SELFPAY ==
[2024-08-11 21:04] VITALS: BP 136/83
--- NOTE | 2024-08-11 22:33 | VATNOTE ---
08/11 primary RN stated patient came in d/t blood at insertion site of right PICC. Dressing changed under sterile technique. blood return present. flushed with 10cc. Dressing to be redressed by home nurse on wednesday.
--- NOTE | 2024-08-11 23:00 | ED.GENMED ---
History of Present Illness
General
Chief Complaint: Catheter/Tube Problem
Time Seen by Provider: 08/11/24 22:36
History of Present Illness
History of Present Illness:
29-year-old female with history of Crohn's disease immunocompromised on Remicade and chronic infections of her teeth presenting for evaluation of PICC line. Patient has a PICC line for a tooth infection, has been getting meropenem. Notes prior to
arrival her cell phone hit the area and it started to bleed which prompted her to come for evaluation. Denies additional acute issues. Denies significant medical complaints
Past History
Past History
ED Past Medical History: Other (Crohn's disease, celiac, IBS, anxiety)
ED Past Surgical History: Orthopedic and Other (Bowel surgery)
Social History
Tobacco: Non-smoker
Alcohol: Occasional
Drug: None
Personal: Other (Engage)
Living: with family
Employment: Employed
Family History
Family History: Other (her dads mother had Juvenile RA, mother has palpitations)
Phy Exam
Physical Exam
Physical Exam:
General: Well-appearing, no clinical signs of dehydration, nontoxic and in no acute distress
HEENT: protecting airway
Neck: appears supple
CV: Normal heart rate
Resp: No accessory muscle use, no increased work of breathing
Abd: no distension
Extremities: No deformities, no swelling. PICC line in appropriate position. No swelling to the extremity. Mild skin irritation from the Tegaderm without erythema
Neuro: alert, no focal neurologic deficit
: deferred
Rectal: deferred
Psych: Normal affect
Skin: Intact
Course
Vital Signs
Initial and Last Documented VS:
Initial Vital Signs
Temp Pulse Resp BP Pulse Ox
98.3 F 110 20 136/83 98
08/11/24 21:04 08/11/24 21:04 08/11/24 21:04 08/11/24 21:04 08/11/24 21:04
Last Documented Vital Signs
Temp Pulse Resp BP Pulse Ox
98.3 F 110 20 136/83 98
08/11/24 21:04 08/11/24 21:04 08/11/24 21:04 08/11/24 21:04 08/11/24 21:04
MDM/Problems Addressed
MDM/Problems Addressed:
29-year-old female presenting for evaluation of her PICC line. Vital signs are significant for mild tachycardia.
On exam patient is well-appearing, no acute distress or discomfort. IV team came to bedside to evaluate PICC line, redressed it and flushed it without difficulty. At this time do not feel patient requires any additional acute intervention. Feel
stable for discharge for continued outpatient management of her ongoing tooth infection with meropenem. Return precautions discussed and patient verbalized understanding
*Critical Care Note
Total Time (30-74mins, 75-104mins- exclusive of procedures): Not Applicable
ED Attending Note
-
Portions of this chart may have been created with voice recognition software.� Occasional wrong word or��sound alike� substitutions may have occurred due to the inherent limitations of voice recognition software.
Discharge Plan
Departure
Patient Disposition: Home (Routine Discharge)
Date of Disposition: 08/11/24
Time of Disposition: 23:00
Patient with high blood pressure during this ER visit?: No
Condition: Good
Discharge Problem:
Bleeding from PICC line
Instructions: How to care for a peripherally inserted central catheter (PICC)
Prescriptions:
No Action
oxycodone 10 mg Tablet
10 mg PO QID@07,12,17,21
clonazepam 1 mg Tablet
1 mg PO BID@1130,2300
fexofenadine 180 mg Tablet
360 mg PO HS
Patient Comments:
patient will provide
acetaminophen [Tylenol Extra Strength] 500 mg Tablet
1,000 mg PO Q6HPRN PRN (Reason: mild pain)
famotidine [Pepcid] 20 mg Tablet
20 mg PO HS
ascorbic acid (vitamin C) [Vitamin C] 500 mg Tablet
500 mg PO BID
infliximab [Remicade] 100 mg Recon Soln
7.5 mg IV Q6W
Rx Instructions:
7.5 mg/kg
gabapentin 300 mg Capsule
300 mg PO QID@,,,
hydroxyzine pamoate 25 mg capsule
25 mg PO QID@,,,
duloxetine [Cymbalta] 30 mg Capsule,Delayed Release(Dr/Ec)
30 mg PO DAILY
Rx Instructions:
take with 60mg
duloxetine [Cymbalta] 60 mg Capsule,Delayed Release(Dr/Ec)
60 mg PO DAILY
Rx Instructions:
take with 30mg
melatonin 10 mg Tablet
10 mg PO HS@2300
oxycodone [OxyContin] 10 mg Tablet,Oral Only,Ext.Rel.12 Hr
10 mg PO HS@2300
vitamin A 3,000 mcg (10,000 unit) Capsule
3,000 mcg PO HS
therapeutic multivitamin Tablet
1 tab PO HS
hydromorphone 4 mg Tablet
4 mg PO Q4HPRN PRN (Reason: severe breakthrough pain)
Patient Comments:
Pt reports 'I took 2 mg so I split it in half'
Visbiome 112.5 billion cell capsule
2 cap PO DAILY Qty: 30 0RF
oxycodone 10 mg Tablet
10 mg PO HSPRN PRN (Reason: severe pain)
polyethylene glycol 3350 [Miralax] 17 gram Powder In Packet
17 g PO DAILYPRN PRN (Reason: constipation)
docusate sodium 100 mg Tablet
300 mg PO DAILYPRN PRN (Reason: constipation)
Ertapenem [Invanz] 1000 MG
0.9% Sodium Chloride [Nss] 50 ML
100 mls/hr IV Q24H
Ordered By: Thalia Ray MD
Last Taken: Unknown
Referrals:
Nadege Dyson PA [Family Provider] -
Activity Restrictions/Additional Instructions:
You were seen in the emergency department for evaluation of your PICC
You were seen by the IV team who was able to redress your line, flushing normally and drawing back blood.
Please follow-up closely with your primary care physician.
Return to the emergency department for any worsening of your symptoms, or any development of chest pain, difficulty breathing, abdominal pain with persistent vomiting and inability to tolerate food or liquid by mouth (concern for dehydration),
weakness, headache or confusion, fever greater than 100.4, or any additional symptoms that are concerning to you.
Thank you for choosing [facility].
Interventions
Interventions:
*General Assessment Last Done: 08/11/24 21:04
*Nursing Disposition Last Done: 08/11/24 23:06
Discharge Date and Time
Discharge Date/Time: 08/11/24 23:07
Print Language: ARABIC
== END 2024-08-11 23:07 | disposition home or self-care (01) ==
LOC: EMR 21:00
PROVIDERS: EMERGENCY PHYSICIAN Student in an Organized Health Care Education/Training Program; FAMILY PHYSICIAN Physician Assistant Medical
DX: T82.838A Hemorrhage due to vascular prosthetic devices, implants and grafts, initial encounter (principal); Y83.8 Other surgical procedures as the cause of abnormal reaction of the patient, or of later complication, without mention of misadventure at the time of the procedure; K04.7 Periapical abscess without sinus; K50.90 Crohn's disease, unspecified, without complications; Z79.69 Long term (current) use of other immunomodulators and immunosuppressants; Z79.2 Long term (current) use of antibiotics
CPT/HCPCS: 99283

== ENCOUNTER → 2024-09-15 11:01 | Outpatient (REF) | payer OTHER, SELFPAY ==
[2024-09-15 11:05] LABS: % Basophils 0.3 % (0-2); % Eosinophils 12.5 % (0-6); % Immature Granulocytes 0.1 % (0-0.5); % Lymphocytes 40.6 % (20.5-51.1); % Monocytes 8.1 % (1.7-9.3); % Neutrophils 38.4 % (42.2-75.2); Absolute Lymphocytes 3.2 10^3/uL (1.2-3.4); Absolute Monocytes 0.6 10^3/uL (0.1-0.6); Hematocrit 34.5 % (37.0-47.0); Hemoglobin 11.9 g/dL (12.0-16.0); Mean Corp Hgb Conc. 34.5 g/dL (33.0-37.0); Mean Corpuscular Hgb 27.5 pg (27.0-31.0); Mean Corpuscular Volume 79.9 fL (81.0-99.0); Mean Platelet Volume 11.1 fL (7.4-10.4); Platelet Count 227 10^3/uL (130-400); Red Blood Cell Count 4.32 10^6/uL (4.20-5.40); Red Cell Dist. Width 13.7 % (11.5-14.5); White Blood Cell Count 7.8 10^3/uL (4.8-10.8)
== END ==
LOC: OIDL 11:01
PROVIDERS: ATTENDING PHYSICIAN Internal Medicine Hematology & Oncology
DX: D72.829 Elevated white blood cell count, unspecified (principal)
CPT/HCPCS: 85025

== ENCOUNTER 2024-10-01 12:19 | Emergency (ER) | payer BC, SELFPAY ==
[2024-10-01 12:22] VITALS: BP 120/80
--- NOTE | 2024-10-01 15:03 | ED.GENMED ---
History of Present Illness
General
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
Source: patient
Exam Limitations: none
Time Seen by Provider: 10/01/24 14:05
Nursing documentation reviewed up to this point in time: agreed with
History of Present Illness
History of Present Illness:
Patient is a 29-year-old female with history of Crohn's disease, constipation presenting to the emergency department for evaluation of lower abdominal pain. Patient reports worsening pain and pressure in her lower abdomen over the past few days.
She also has mild pain in her epigastric region. She reports mild nausea. She did take Dulcolax 2 days ago although is still not had regular bowel movements. She denies any associated fever, chills, or vomiting. Patient denies any dysuria or
hematuria. But she does report increase in vaginal discharge�she denies any discomfort or change in color or odor of discharge.
Patient states her symptoms today do not feel similar to Crohn's flare in the past.
Patient is seen by pain management for chronic pain which is thought to be enthesitis secondary to Crohn's. She takes daily oxycodone, OxyContin and p.o. hydromorphone as needed breakthrough pain.
Patient has history of rectal prolapse that was repaired in 2021.
Past History
Past History
ED Past Medical History: Other (Crohn's disease, celiac, IBS, anxiety)
ED Past Surgical History: Orthopedic and Other (Bowel surgery)
Social History
Tobacco: Non-smoker
Alcohol: Occasional
Drug: None
Personal: Other (Engage)
Living: with family
Employment: Employed
Family History
Family History: Other (her dads mother had Juvenile RA, mother has palpitations)
Review of Systems
Review of Systems
Allergies reviewed?: Yes
All Other Systems: ROS reviewed and negative except as documented in HPI and ROS
Phy Exam
Physical Exam
Physical Exam:
Vitals: Tachycardic on arrival, improved by my assessment. Afebrile
General: Patient is well appearing, no acute distress. Nontoxic appearing
Skin: Warm and dry, no rashes or lesions. PICC line right upper arm with no surrounding erythema or signs cellulitis
Head: Normocephalic, atraumatic
Eyes: Sclera nonicteric. EOMs intact. No nystagmus.
Throat: Protecting airway
Neck: Normal ROM, no cervical spine tenderness, no meningismus
Cardiac: Regular rate and rhythm, no murmurs.
Pulm: Normal respiratory effort, no wheezes, rales, rhonchi heard on exam.
Abdomen: Nondistended. Soft with mild tenderness in left lower quadrant. No rebound tenderness or guarding. Normal bowel sounds.
Pelvic: External genitalia normal appearing without lesions, ulcerations, or adenopathy. Bimanual without any evidence of prolapse or mass. No cervical motion tenderness
Rectal: No fecal impaction. No rectal prolapse
Extremities: No evidence of cyanosis or edema. Palpable DP pulses bilaterally
Neuro: AAOx3. CN II-XII intact. No focal neurologic deficits.
Psychiatric: Normal affect.
Course
Orders/Labs/Results
Orders:
Orders
10/01/24 14:32
0.9% Sodium Chloride 1000 ml [Nss] 1,000 ml IV BOLUS
Morphine Sulfate 4 mg IV NOW STA
Ondansetron Injectable [Zofran] 4 mg IV NOW STA
Test Result ONCE
Obstruct Series W/PA Chest [CR Obstruct Series W/pa Chest] Urgent
Comment:
Reason For Exam: constipation, bloating
10/01/24 15:17
HYDROmorphone [Dilaudid] 0.5 mg IV NOW STA
10/01/24 15:26
Complete Blood Count/With Diff Urgent
Comprehensive Metabolic Panel Urgent
HCG, Serum Qualitative Screen Urgent
Lipase Urgent
10/01/24 15:56
Urinalysis Reflex To Culture Urgent
Date Specimen was Collected: 10/01/24
Time Specimen was Collected: 15:29
10/01/24 16:31
HYDROmorphone [Dilaudid] 0.5 mg IV NOW STA
Abnormal Lab Results
10/01/24
15:26
MPV 11.1 H fL
(7.4-10.4)
10/01/24 15:26
10/01/24 15:26
Vital Signs
Initial and Last Documented VS:
Initial Vital Signs
Temp Pulse Resp BP Pulse Ox
98.5 F 125 22 120/80 96
10/01/24 12:22 10/01/24 12:22 10/01/24 12:22 10/01/24 12:22 10/01/24 12:22
Last Documented Vital Signs
Temp Pulse Resp BP Pulse Ox
98.5 F 76 18 101/69 97
10/01/24 12:22 10/01/24 17:47 10/01/24 17:47 10/01/24 17:47 10/01/24 17:47
MDM/Problems Addressed
Differential Diagnosis Includes:
Not limited to: Constipation, obstruction, UTI, Crohn's flare,
MDM/Problems Addressed:
29 year old female with lower abdominal pain and constipation worse over past few days. No fevers, urinary symptom, or vomiting. Patient w/ multiple chronic medical conditions including crohn's, rectal prolapse, and pelvic floor dysfunction with
close follow-up with both GI and urogynecology. Patient tachycardic on arrival although improved by my assessment. Physical exam above. Abdomen soft w/ mild tenderness in LLQ without rebound tenderness or guarding. No focal tenderness at McBurney's
point. No fecal impaction or rectal prolapse on exam. exam without evidence of prolapse or palpable mass. Low suspicion for acute intraabdominal process given patient afebrile with relatively benign abdominal exam. Will send screening labs and
check obstruction series.
Update: labs reviewed. No leukocytosis or left shift on labs. Chemistry unremarkable. Urine not infected. Obstruction series shows stool burden without evidence of obstruction. Low suspicion for acute intraabdominal infection. Feel symptoms likely
secondary to constipation. Patient takes opioid medication daily. Did discuss that these are likely making constipation worse. Offered enema in ED although patient would prefer to do one herself at home. Stable for discharge with outpatient f/u.
Return precautions discussed.
Chronic conditions affecting care:
Crohn's disease
Acute Exacerbation and/or Progression of Chronic Illness:
N/A
*Radiology
Radiology exam reviewed: radiology read reviewed (Abdominal obstruction series-moderate diffuse stool burden without evidence of obstruction)
*Pulse Oximetry
Patient hypoxic: no
*EKG
Interpreted by ED Provider?: NA
*Collateral Specialist Interpretation
Rate: Collateral Specialist- N/A
*Critical Care Note
Total Time (30-74mins, 75-104mins- exclusive of procedures): Not Applicable
ED Attending Note
-
Portions of this chart may have been created with voice recognition software.� Occasional wrong word or��sound alike� substitutions may have occurred due to the inherent limitations of voice recognition software.
Discharge Plan
Departure
Patient Disposition: Home (Routine Discharge)
Date of Disposition: 10/01/24
Time of Disposition: 17:20
Patient with high blood pressure during this ER visit?: No
Condition: Good
Covid-19: Not Applicable
Discharge Problem:
Abdominal pain
Instructions: Constipation, Adult ED, Abdominal Pain
Prescriptions:
No Action
oxycodone 10 mg Tablet
10 mg PO QID@07,12,17,21
clonazepam 1 mg Tablet
1 mg PO BID@1130,2300
fexofenadine 180 mg Tablet
360 mg PO HS
Patient Comments:
patient will provide
acetaminophen [Tylenol Extra Strength] 500 mg Tablet
1,000 mg PO Q6HPRN PRN (Reason: mild pain)
famotidine [Pepcid] 20 mg Tablet
20 mg PO HS
ascorbic acid (vitamin C) [Vitamin C] 500 mg Tablet
500 mg PO BID
infliximab [Remicade] 100 mg Recon Soln
7.5 mg IV Q6W
Rx Instructions:
7.5 mg/kg
gabapentin 300 mg Capsule
300 mg PO QID@,,18,
hydroxyzine pamoate 25 mg capsule
25 mg PO QID@,,,
duloxetine [Cymbalta] 30 mg Capsule,Delayed Release(Dr/Ec)
30 mg PO DAILY
Rx Instructions:
take with 60mg
duloxetine [Cymbalta] 60 mg Capsule,Delayed Release(Dr/Ec)
60 mg PO DAILY
Rx Instructions:
take with 30mg
melatonin 10 mg Tablet
10 mg PO HS@2300
oxycodone [OxyContin] 10 mg Tablet,Oral Only,Ext.Rel.12 Hr
10 mg PO HS@2300
vitamin A 3,000 mcg (10,000 unit) Capsule
3,000 mcg PO HS
therapeutic multivitamin Tablet
1 tab PO HS
hydromorphone 4 mg Tablet
4 mg PO Q4HPRN PRN (Reason: severe breakthrough pain)
Patient Comments:
Pt reports 'I took 2 mg so I split it in half'
Visbiome 112.5 billion cell capsule
2 cap PO DAILY Qty: 30 0RF
oxycodone 10 mg Tablet
10 mg PO HSPRN PRN (Reason: severe pain)
polyethylene glycol 3350 [Miralax] 17 gram Powder In Packet
17 g PO DAILYPRN PRN (Reason: constipation)
docusate sodium 100 mg Tablet
300 mg PO DAILYPRN PRN (Reason: constipation)
Ertapenem [Invanz] 1000 MG
0.9% Sodium Chloride [Nss] 50 ML
100 mls/hr IV Q24H
Ordered By: Thalia Ray MD
Last Taken: Unknown
Referrals:
Nadege Dyson PA [Family Provider] -
Activity Restrictions/Additional Instructions:
Return to the emergency department with any high fevers, intractable abdominal pain, intractable nausea/vomiting, worsening in current symptoms, or any other concerns
- As discussed�your lab work, urinalysis, and abdominal x-ray showed no acute abnormalities.
- I suspect you are constipated. You should try an enema at home. You can try magnesium citrate, as well if needed. It is important stay very well-hydrated. Eat high-fiber foods.
- Follow-up with your GI doctor and your customs investigator for further evaluation/management. You may require further imaging and testing.
Monitor your symptoms closely and return to the emergency department with any acute worsening/new symptoms or any other concerns
Interventions
Interventions:
*Risk Screen - Suicide Last Done: 10/01/24 12:26
*General Assessment Last Done: 10/01/24 12:26
*Neglect/Abuse Screening Last Done: 10/01/24 12:26
*ED- Fall Risk Assessment Last Done: 10/01/24 16:03
*ED COVID-19 Vaccine History Last Done: 10/01/24 16:03
*Nursing Disposition Last Done: 10/01/24 17:47
ED-Female Genitourinary Assessment Last Done: 10/01/24 16:00
Discharge Date and Time
Discharge Date/Time: 10/01/24 17:49
Print Language: SRI LANKAN
[2024-10-01] MEDS: DILAUDID 0.5 MG IV ×2 (15:23→16:42)
[2024-10-01] MEDS: NSS 1000 IV (15:24)
[2024-10-01 15:37] LABS: % Basophils 0.4 % (0-2); % Eosinophils 4.9 % (0-6); % Immature Granulocytes 0.3 % (0-0.5); % Lymphocytes 40.5 % (20.5-51.1); % Monocytes 7.4 % (1.7-9.3); % Neutrophils 46.5 % (42.2-75.2); Absolute Eosinophils 0.4 10^3/uL (0-0.7); Absolute Lymphocytes 3.2 10^3/uL (1.2-3.4); Absolute Monocytes 0.6 10^3/uL (0.1-0.6); Absolute Neutrophils 3.7 10^3/uL (1.4-6.5); Hematocrit 37.3 % (37.0-47.0); Hemoglobin 12.9 g/dL (12.0-16.0); Mean Corp Hgb Conc. 34.6 g/dL (33.0-37.0); Mean Corpuscular Volume 81.1 fL (81.0-99.0); Mean Platelet Volume 11.1 fL (7.4-10.4); Nucleated Red Blood Cells % 0 %; Platelet Count 221 10^3/uL (130-400); Red Cell Dist. Width 14.2 % (11.5-14.5)
[2024-10-01 15:53] LABS: HCG, Serum Qualitative Screen Negative
[2024-10-01 16:08] LABS: ALT (SGPT) 23 U/L (0-35); AST (SGOT) 30 U/L (14-36); Albumin 3.7 g/dl (3.5-5.0); Alkaline Phosphatase 93 U/L (38-126); Blood Urea Nitrogen 11 mg/dl (7-17); Calcium 9.3 mg/dl (8.4-10.2); Carbon Dioxide 29 mmol/L (22-30); Chloride 104 mmol/L (98-107); Glucose 90 mg/dl (70-99); Lipase 105 U/L (23-300); Potassium 4.3 mmol/L (3.5-5.1); Sodium 140 mmol/L (135-145); Total Bilirubin 0.8 mg/dl (0.2-1.3); eGFR > 60.00
[2024-10-01 16:17] LABS: Urine Albumin Negative (Neg - Trace); Urine Bilirubin Negative (Negative); Urine Character Clear (Clear); Urine Color Yellow; Urine Glucose Negative (Negative); Urine Ketone Negative (Negative); Urine Leukocyte Negative (Negative); Urine Nitrite Negative (Negative); Urine Occult Blood Negative (Negative); Urine Urobilinogen Negative (Neg - 1+)
[2024-10-01 17:47] VITALS: BP 101/69
== END 2024-10-01 17:49 | disposition home or self-care (01) ==
LOC: EMR 12:19
PROVIDERS: Physician Assistant; EMERGENCY PHYSICIAN Emergency Medicine; FAMILY PHYSICIAN Physician Assistant Medical
DX: R10.30 Lower abdominal pain, unspecified (principal); K59.00 Constipation, unspecified; R10.13 Epigastric pain; N89.8 Other specified noninflammatory disorders of vagina; K50.10 Crohn's disease of large intestine without complications; G89.29 Other chronic pain; K58.9 Irritable bowel syndrome, unspecified; K90.0 Celiac disease; F41.9 Anxiety disorder, unspecified; F42.9 Obsessive-compulsive disorder, unspecified; Z79.891 Long term (current) use of opiate analgesic; Z86.16 Personal history of COVID-19; Z88.1 Allergy status to other antibiotic agents; Z91.012 Allergy to eggs; Z91.018 Allergy to other foods; Z91.013 Allergy to seafood; Z88.8 Allergy status to other drugs, medicaments and biological substances
CPT/HCPCS: 99284; 96374; 96361; 96376; 74022; 80053; 81003; 83690; 84703; 85025

== ENCOUNTER 2024-10-07 03:26 | Inpatient (IN) | payer OTHER, SELFPAY ==
[2024-10-06 23:04] VITALS: BP 111/79
[2024-10-06 23:57] VITALS: BP 103/66
[2024-10-06 23:58] VITALS: BMI 27.0
[2024-10-07] VITALS (7 sets, daily range): BP systolic 94–128; BP diastolic 60–88; BMI 26.8
--- NOTE | 2024-10-07 00:25 | ED.GENMED ---
History of Present Illness
General
Chief Complaint: Swelling
Source: patient, previous radiology exam and previous hospital records (Multiple previous hospitalizations for similar complaints for treatment of left facial cellulitis, dental infection)
Exam Limitations: none
Time Seen by Provider: 10/06/24 23:55
Nursing documentation reviewed up to this point in time: agreed with
History of Present Illness
History of Present Illness:
This is a 29-year-old female with history of Crohn's disease, maintained on Remicade, history of chronic pain/narcotic dependent, anxiety as well as history of recurrent dental infections at site of tooth #11 with multiple previous hospitalizations
since April 2024 requiring IV antibiotics, PICC line insertion. At 1 point had dental graft which was subsequently removed June of this year and grew out strep species as well as haemophilus parainfluenza.
Most recent hospitalization for dental infection was overnight hospitalization July 30 to July 31. Discharged with PICC line and completed a 2-week course of ertapenem.
Since then she has continued to undergo outpatient dental procedures with most recent procedure 3 weeks ago. She is now maintained on prophylactic ertapenem dose 1 day prior to dental procedure, the day of dental procedure and then 1 day following
the dental procedure. Most recently 3 weeks ago.
Since yesterday however she complains of left upper anterior gingival pain and initially thought that maybe she had 'poked herself' with something that she was eating. Left upper dental pain has worsened today with now some left anterior maxillary
facial pain and swelling as well as generalized fatigue, aches and chills throughout the day today. Low-grade fever tonight of 99.7 �F.
She placed a call to her infectious disease specialist, spoke with Dr. Ronald Clifford who recommended she come to the ED for admission, IV antibiotics.
Past History
Past History
ED Past Medical History: Other (Crohn's disease, celiac, IBS, anxiety), Other (Recurrent dental infections/facial cellulitis-PICC line in place.) and Other (Chronic pain syndrome-narcotic dependent)
ED Past Surgical History: Orthopedic and Other (Bowel surgery)
Social History
Tobacco: Non-smoker
Alcohol: Occasional
Drug: None
Personal: Single (Engage)
Living: with family
Employment: Not employed
Family History
Family History: Other (her dads mother had Juvenile RA, mother has palpitations)
Phy Exam
Physical Exam
Physical Exam:
GENERAL: 29-year-old female appears her stated age, awake and alert, pleasant, appears in no acute distress. Significant other accompanying.
EYE: pupils equal and reactive. anicteric
NECK: Supple, nontender, no meningismus, no significant adenopathy.
ENT: posterior pharynx is clear, oral mucosa is moist. There is mild erythema left upper gingival area near previous dental extraction site #11 with moderate local tenderness to palpation. There is no gingival soft tissue swelling, no evidence of
abscess. There is mild erythema to left anterior cheek with moderate tenderness left anterior cheek and perhaps minimal focal soft tissue swelling left anterior cheek region. TM clear b/l, nares patent.
CARDIAC: Regular rate and rhythm. no murmur.
LUNGS: Clear breath sounds bilaterally, no acute respiratory distress, no wheezes/rales/rhonchi
ABDOMEN: Soft, nondistended, without focal tenderness, no r/g, no cvat. normoactive BS.
NEUROLOGICAL: Alert and oriented x3, no focal neuro deficits. Gait is cedeno and steady.
SKIN: Warm and dry, normal color, skin intact. No rash.
MUSCULOSKELETAL: No C/C/E. peripheral pulses are full and equal b/l. No palpable tenderness.
PSYCH: Normal and appropriate interaction.
Course
Orders/Labs/Results
Orders:
Orders
10/06/24 23:17
Chest [CR Chest - 2 Views ] Urgent
Comment:
Reason For Exam: picc line placement
10/07/24 00:22
CT Facial Bones W/ Iv Contrast Urgent
Comment:
Reason For Exam: left facial swelling, pain, fever
10/07/24 00:23
0.9% Sodium Chloride 1000 ml [Nss] 1,000 ml IV BOLUS
HYDROmorphone [Dilaudid] 0.5 mg IV NOW STA
10/07/24 00:46
Ertapenem [Invanz] 1,000 mg 0.9% Sodium Chloride [Nss] 50 ml IV NOW
10/07/24 01:07
CRP [C-Reactive Protein] Urgent
Complete Blood Count/With Diff Urgent
Comprehensive Metabolic Panel Urgent
Lactic Acid Q4H
Comment: CANCEL 2nd LACTIC ACID IF 1st LACTIC ACID IS LESS THAN 2
Sed Rate [Erythrocyte Sed Rate] Urgent
Blood Culture Q30M
DESIRE Source: Blood/Venous
Specimen Description:
Blood Culture Q30M
DESIRE Source: Blood/Venous
Specimen Description:
10/07/24 01:43
Admit/Transfer Patient As Directed
Co-Sign Provider:
Level of Care: Inpatient admission
Assign to:: Medical/Surgical
Physician / Group: hospitalist
Diagnosis: dental cellulitis
Reason for Hospitalization: dental infection
Expected length of stay greater than two midnights?: Yes
ELOS- Estimated Length of Stay in days: 2
I certify the patient meets the requirements for IP care: Yes
PRN Pain Medication Management As Directed
May give lesser potent ordered pain med per pt: Yes
preference::
Protocol:: Medication orders for pain may be administered in a
manner that supports deferring to patient preference
when the pt is:
- Requesting an ordered lesser potent pain medication.
Least to most potent pain medications are defined
as: acetaminophen < NSAID < tramadol < opioids
(morphine, oxycodone, hydromorphone).
- Requesting a lesser dose of the same medication IF
ORDERED.
- Requesting a less intrusive route of administration
if both routes are prescribed by the provider (PO <
IV).
10/07/24 01:46
Code Status As Directed
Resuscitation Status: Full Code
10/07/24 02:09
HYDROmorphone [Dilaudid] 0.5 mg IV NOW STA
10/07/24 03:31
Acetaminophen [Tylenol] 650 mg PO Q4HPRN PRN
Bisacodyl [Dulcolax] 10 mg RECTAL [id number] PRN
Docusate Sodium [Colace] 300 mg PO DAILYPRN PRN
Docusate W/Senna [Senokot-S] 1 tablet PO BIDPRN PRN
HYDROmorphone [Dilaudid] 1 mg IV Q3HPRN PRN
Ketorolac [Toradol] 15 mg IV Q6HPRN PRN
Ondansetron Injectable [Zofran] 4 mg IV Q6HPRN PRN
Polyethylene Glycol Powder [Miralax] 17 grams PO DAILYPRN PRN
10/07/24 03:31
Consult Notification Routine
Specialty to Notify: Infectious Disease
Date consulting provider notified: 10/07/24
Time consulting provider notified: 07:05
Notified:: Provider
Comment: TT Dr Morse
INFECTIOUS DISEASE CONSULT Routine
Consulting Provider: Marli Morse
Was physician already notified: No
Reason for consult: recurrent dental/gum infection, h/o crohns, immunosuppressed
Activity As Directed
Activity Level: As Tolerated
Vital Signs As Directed
Frequency: Per unit guidelines
Pulse Ox/spot Check [RESP] Routine
Quantity: 1
DX Deep Vein Thrombosis Video Routine
10/07/24 Breakfast
Regular
At Your Request: Full Participation
10/07/24 06:07
Basic Metabolic Panel IN AM
Complete Blood Count/No Diff IN AM
10/07/24 07:00
Oxycodone [Roxicodone] 10 mg PO QID@07,12,17,21
10/07/24 08:00
Ascorbic Acid [Vitamin C] 500 mg PO BID
Duloxetine Delayed Release [Cymbalta Delayed Release] 90 mg PO DAILY
Gabapentin [Neurontin] 300 mg PO QID@,,,
HydrOXYZINE [Atarax] 25 mg PO QID@,,,
Lactobac/Bifidobac [Visbiome] 2 cap PO DAILY
10/07/24 11:30
Clonazepam [Klonopin] 1 mg PO BID@1130,2300
10/07/24 18:00
Enoxaparin Sodium [Lovenox] 40 mg SC QPM
10/07/24 22:00
Famotidine [Pepcid] 20 mg PO HS
fexofenadine See Dose Instructions PO HS
10/07/24 23:00
Oxycodone Controlled Release [Oxycontin (Controlled Release)] 10 mg PO HS@2300
10/08/24 00:00
Ertapenem [Invanz] 1,000 mg 0.9% Sodium Chloride [Nss] 50 ml IV Q24H
Abnormal Lab Results
10/07/24
01:07
Hct 36.4 L %
(37.0-47.0)
MCV 79.5 L fL
(81.0-99.0)
MPV 11.5 H fL
(7.4-10.4)
Absolute Lymphs (auto) 3.9 H 10^3/uL
(1.2-3.4)
Absolute Monos (auto) 0.7 H 10^3/uL
(0.1-0.6)
Neutrophils % 41.6 L %
(42.2-75.2)
ESR 23 H mm/hour
(0-20)
Lactic Acid 0.5 L mmol/L
(0.7-2.0)
10/07/24 01:07
10/07/24 01:07
Vital Signs
Initial and Last Documented VS:
Initial Vital Signs
Temp Pulse Resp BP Pulse Ox
99.7 F 133 18 111/79 95
10/06/24 23:04 10/06/24 23:04 10/06/24 23:04 10/06/24 23:04 10/06/24 23:04
Last Documented Vital Signs
Temp Pulse Resp BP Pulse Ox
98.1 F 91 18 125/88 99
10/07/24 03:05 10/07/24 03:05 10/07/24 03:05 10/07/24 03:05 10/07/24 03:05
MDM/Problems Addressed
Differential Diagnosis Includes:
Patient presents with recurrent left upper dental/facial pain, mild gingival erythema, low-grade fever. History of recurrent facial cellulitis/dental infections at the site and patient is at risk for recurrent infections as she is
immunocompromised, chronically maintained on Remicade.
Will check labs, inflammatory markers, lactic acid, blood culture.
Will check CT facial bones with IV contrast.
Will plan for IV antibiotics and admit to hospital service.
Patient has history of chronic pain/narcotic dependent. Requesting a dose of IV Dilaudid.
Recommend she take her usual nighttime dose of OxyContin 10 mg now which she has on hand. Will be judicious with IV narcotics and plan to continue her usual maintenance oxycodone.
Chronic conditions affecting care: Immunosuppressed and Other (History of recurrent dental infections with infected bone graft positive for strep species and haemophilus parainfluenza)
*Radiology
Radiology exam reviewed: radiology read reviewed
*Pulse Oximetry
Patient hypoxic: no
*Critical Care Note
Total Time (30-74mins, 75-104mins- exclusive of procedures): Not Applicable
ED Attending Note
-
Portions of this chart may have been created with voice recognition software.� Occasional wrong word or��sound alike� substitutions may have occurred due to the inherent limitations of voice recognition software.
Discharge Plan
Departure
Patient Disposition: Admit
Date of Disposition: 10/07/24
Time of Disposition: 00:44
Admit to: Med/Surg
Admit to doctor: Angela
Presentation/result/management discussed w/ accepting MD/DO: Hospitalist
Condition: Good
Discharge Problem:
Recurrent dental infection/facial cellul, Immunocompromise state related to Remica, Chronic pain syndrome�narcotic dependent
Interventions
Interventions:
*Risk Screen - Suicide Last Done: 10/07/24 03:39
*General Assessment Last Done: 10/06/24 23:58
*Neglect/Abuse Screening Last Done: 10/07/24 03:05
*ED- Fall Risk Assessment Last Done: 10/06/24 23:58
*ED COVID-19 Vaccine History Last Done: 10/07/24 03:39
*Nursing Disposition Last Done: 10/07/24 03:05
ED- Cardiac Assessment Last Done: 10/06/24 23:58
ED- Pulmonary Assessment Last Done: 10/06/24 23:58
ED-Skin Assessment Last Done: 10/06/24 23:58
Discharge Date and Time
Discharge Date/Time: 10/07/24 03:06
[2024-10-07] MEDS: DILAUDID 0.5 MG IV ×3 (01:16→19:20)
[2024-10-07] MEDS: NSS 1000 IV (01:19)
[2024-10-07] MEDS: INVANZ 60 MG IV ×2 (01:20→21:07)
[2024-10-07 01:30] LABS: % Basophils 0.6 % (0-2); % Eosinophils 5.5 % (0-6); % Immature Granulocytes 0.2 % (0-0.5); % Lymphocytes 44.2 % (20.5-51.1); % Monocytes 7.9 % (1.7-9.3); % Neutrophils 41.6 % (42.2-75.2); Absolute Basophils 0.1 10^3/uL (0-0.2); Absolute Eosinophils 0.5 10^3/uL (0-0.7); Absolute Lymphocytes 3.9 10^3/uL (1.2-3.4); Absolute Monocytes 0.7 10^3/uL (0.1-0.6); Absolute Neutrophils 3.7 10^3/uL (1.4-6.5); Hematocrit 36.4 % (37.0-47.0); Hemoglobin 12.4 g/dL (12.0-16.0); Mean Corp Hgb Conc. 34.1 g/dL (33.0-37.0); Mean Corpuscular Hgb 27.1 pg (27.0-31.0); Mean Corpuscular Volume 79.5 fL (81.0-99.0); Mean Platelet Volume 11.5 fL (7.4-10.4); Nucleated Red Blood Cells % 0 %; Platelet Count 214 10^3/uL (130-400); Red Blood Cell Count 4.58 10^6/uL (4.20-5.40); Red Cell Dist. Width 14.4 % (11.5-14.5); White Blood Cell Count 8.8 10^3/uL (4.8-10.8)
--- NOTE | 2024-10-07 01:34 | HPS.HSE ---
Family Physician
-
Family Physician: Nadege Dyson
Chief Complaint
-
Swelling
History of Present Illness
This is a 29 y.o female with h/o Crohns disease on Remicade, h/o recurrent dental infection complicated by facial cellulitis and s/p dental bone graft infection-removed 06/2024 who was recently admitted in july for root canal infection s/p 2
weeks of ertapenem coming in with left upper dental pain for 1 day.
Patient reports 1 day of dental pain in the left upper region, left maxillary facial pain and low grade fever tonight. Pain radiating to the left nasal region and maxillary region.
She thought that maybe she had 'poked herself' with something that she was eating. Left upper dental pain has worsened today with now some left anterior maxillary facial pain and swelling as well as generalized fatigue, aches and chills throughout
the day today. She placed a call to her infectious disease specialist, spoke with Dr. Ronald Clifford who recommended she come to the ED for admission, IV antibiotics.
Here in the emergency department temperature was 98.7, blood pressure was 106/60 with a pulse of 130 and respiratory rate of 19. She was at 90% on room air.
Chest x-ray shows no acute infiltrates. CBC was unremarkable. Electrolytes are pending.
CT of the facial bones are pending.
Medical History
Past Medical History
Past Medical History: Reports Other
Additional Past Medical History:
Apudoma of skin
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
Other obsessive-compulsive disorder
Crohn's disease, unspecified, without complications
Obsessive-compulsive disorder
Mild episode of recurrent major depressive disorder
Crohn's disease
Mood disorder
Constipation,
Rectal prolapse
Celiac disease
Palpitations
Abdominal pain
Gastrointestinal Crohn's disease
Chronic pain syndrome
major depressive disorder with psychotic features
Anxiety
Past Surgical History: Reports Other
Additional Past Surgical History:
recent oral surgery
See above
Social History
Tobacco: Non-smoker
Alcohol: None
Drug: None
Family History
Family History: Not pertinent
Allergies / Home Medications
Allergies reflects when Allergies were last updated in [facility].
Home Medications with original date entered in [facility]
Allergy/Medication List:
Allergies
Allergy/AdvReac Type Severity Reaction Status Date / Time
amoxicillin [From Augmentin] Allergy Intermediate Rash Verified 08/11/24 21:04
clavulanic acid Allergy Intermediate Rash Verified 08/11/24 21:04
[From Augmentin]
egg Allergy Anaphylaxis Verified 08/11/24 21:04
gluten Allergy stomach Verified 08/11/24 21:04
pain
prochlorperazine Allergy Akathesia Verified 08/11/24 21:04
shrimp Allergy Unknown Verified 08/11/24 21:04
tree nut Allergy Hives Verified 08/11/24 21:04
piperacillin [From Zosyn] AdvReac Severe Severe Verified 08/11/24 21:04
arthritic
pain
tazobactam [From Zosyn] AdvReac Severe Severe Verified 08/11/24 21:04
arthritic
pain
Quinolones AdvReac Mild Nausea Verified 08/11/24 21:04
doxycycline AdvReac Nausea / Verified 08/11/24 21:04
Vomiting
metronidazole AdvReac Nausea / Verified 08/11/24 21:04
Vomiting
Home Medications
oxycodone 10 mg tablet 10 mg PO QID@07,12,17,21 02/12/23
acetaminophen 500 mg tablet (Tylenol Extra Strength) 1,000 mg PO Q6HPRN PRN mild pain 01/15/24
ascorbic acid (vitamin C) 500 mg tablet (Vitamin C) 500 mg PO BID Supplement 01/15/24
clonazepam 1 mg tablet 1 mg PO BID@1130,2300 Mental Health/Anxiety 01/15/24
duloxetine 30 mg capsule,delayed release (Cymbalta) 30 mg PO DAILY mental health 01/15/24
duloxetine 60 mg capsule,delayed release (Cymbalta) 60 mg PO DAILY mental health 01/15/24
famotidine 20 mg tablet (Pepcid) 20 mg PO HS Gastrointestinal Issue 01/15/24
fexofenadine 180 mg tablet 360 mg PO HS Allergies 01/15/24
gabapentin 300 mg capsule 300 mg PO QID@08,,, Neurological Condition 01/15/24
hydroxyzine pamoate 25 mg capsule 25 mg PO QID@,,, Mental Health/Anxiety 01/15/24
infliximab 100 mg intravenous solution (Remicade) 7.5 mg IV Q6W Crohn's disease 01/15/24
melatonin 10 mg tablet 10 mg PO HS@2300 Sleep 01/15/24
oxycodone 10 mg tablet,crush resistant,extended release 12 hr (OxyContin) 10 mg PO HS@2300 chronic pain 01/15/24
vitamin A 3,000 mcg (10,000 unit) capsule 3,000 mcg PO HS Supplement 02/26/24
hydromorphone 4 mg tablet 4 mg PO Q4HPRN PRN severe breakthrough pain 05/09/24
therapeutic multivitamin 1 tab PO HS Supplement 05/09/24
Lactobac no.2-Bifidobac no.1-S. thermo 112.5 billion cell capsule (Visbiome) 2 cap PO DAILY #30 caps 05/14/24
oxycodone 10 mg tablet 10 mg PO HSPRN PRN severe pain 05/26/24
docusate sodium 100 mg tablet 300 mg PO DAILYPRN PRN constipation 07/30/24
polyethylene glycol 3350 17 gram oral powder packet (Miralax) 17 g PO DAILYPRN PRN constipation 07/30/24
Ertapenem [Invanz] 1,000 mg 100 mls/hr IV Q24H 07/31/24
Review of Systems
-
History Source: Patient
Constitutional: Reports Chills
EENT: Reports Mouth Pain
Respiratory: Reports No Symptoms
Cardiac: Reports No Symptoms
Abdomen/GI: Reports No Symptoms
: Reports No Symptoms
Musculoskeletal: Reports No Symptoms
Skin: Reports No Symptoms
Neurological: Reports No Symptoms
Endocrine: Reports No Symptoms
Hematologic/Lymphatic: Reports No Symptoms
Psych: Reports No Symptoms
Physical Exam
Vital Signs
Vital Signs
Temp Pulse Resp BP Pulse Ox
99.7 F 133 18 106/68 96
10/06/24 23:04 10/06/24 23:04 10/06/24 23:04 10/07/24 00:00 10/07/24 00:00
Physical Exam
General: Well Developed, Well Nourished, No Apparent Distress and Comfortable
HEENT: NormoCephalic, Moist mucous membranes, Nose Appears Normal and Ears Appear Normal
Respiratory: Clear
Cardiac: S1/S2 and Regular Rhythm
GI: Soft, Non Tender and Non Distended
Musculoskeletal: No Clubbing, No Cyanosis and No Edema
Skin: Warm, Dry and Rash
Neuro: Awake, Alert, Oriented and AO x 3
Psych: Calm
Laboratory Results
-
10/07/24 01:07
Data Reviewed
-
Diagnostic Radiology: Image Personally Visualized and interpreted
CT Scan: Report Reviewed by me
Lab Data: Labs Reviewed by me
Old Records: Reviewed
Impression/Plan
-
IMPRESSION:
Patient with h/o crohns and recurrent dental infection comes in with left upper teeth pain and left facial swelling. She has low grade fevers and tachycardia. She is otherwise hemodynamically stable. Labs stable.
PLAN:
Dental infection - Gum infection without obvious drainage or fluid collection. Moderate swelling on examination. Low grade temps. Recent Infliximab infusion
- admit to med/surg
- blood cultures, h/o streptococcus sp and hemaphilus para-influenza infection
- given prior reactions, getting ertapenem 1 g q 24 hours for now
- pain control with IV dilaudid, toradol and her home pain regimen (extensive opioids)
- f/u read on CT facial
- ID consultation
Crohns - Stable without active findings
Anxiety -
- continue clonazepam
DVT PPX - lovenox sq
Code status - Full code
[2024-10-07 01:35] LABS: Lactic Acid 0.5 mmol/L (0.7-2.0)
[2024-10-07 01:37] LABS: ALT (SGPT) 20 U/L (0-35); AST (SGOT) 27 U/L (14-36); Albumin 3.9 g/dl (3.5-5.0); Alkaline Phosphatase 98 U/L (38-126); Blood Urea Nitrogen 12 mg/dl (7-17); Calcium 8.9 mg/dl (8.4-10.2); Carbon Dioxide 26 mmol/L (22-30); Chloride 105 mmol/L (98-107); Estimated Creatinine Clearance 101 ml/min; Glucose 86 mg/dl (70-99); Potassium 4.1 mmol/L (3.5-5.1); Sodium 140 mmol/L (135-145); Total Bilirubin 0.8 mg/dl (0.2-1.3); Total Protein 7.3 g/dl (6.3-8.2); eGFR > 60.00
[2024-10-07 01:40] LABS: C-Reactive Protein < 5.00 mg/L (0.0-10.00)
[2024-10-07 02:04] LABS: Erythrocyte Sed Rate 23 mm/hour (0-20)
[2024-10-07] MEDS: TYLENOL 650 MG PO (04:51)
[2024-10-07] MEDS: DILAUDID 1 MG IV ×4 (05:30→23:31)
[2024-10-07 06:48] LABS: Mean Corp Hgb Conc. 34.4 g/dL (33.0-37.0); Mean Corpuscular Hgb 27.6 pg (27.0-31.0); Mean Corpuscular Volume 80.2 fL (81.0-99.0); Mean Platelet Volume 11.5 fL (7.4-10.4); Platelet Count 183 10^3/uL (130-400); Red Blood Cell Count 3.99 10^6/uL (4.20-5.40); Red Cell Dist. Width 14.2 % (11.5-14.5); White Blood Cell Count 9.2 10^3/uL (4.8-10.8)
[2024-10-07 07:23] LABS: Blood Urea Nitrogen 10 mg/dl (7-17); Calcium 8.2 mg/dl (8.4-10.2); Carbon Dioxide 24 mmol/L (22-30); Chloride 107 mmol/L (98-107); Estimated Creatinine Clearance 103 ml/min; Glucose 85 mg/dl (70-99); Potassium 3.9 mmol/L (3.5-5.1); Sodium 139 mmol/L (135-145); eGFR > 60.00
[2024-10-07] MEDS: VISBIOME 2 CAP PO (08:21)
[2024-10-07] MEDS: VITAMIN C 500 MG PO ×2 (08:22→19:21)
[2024-10-07] MEDS: ROXICODONE 10 MG PO ×4 (08:23→21:07)
[2024-10-07] MEDS: CYMBALTA DELAYED RELEASE 90 MG PO (08:23)
[2024-10-07] MEDS: ATARAX 25 MG PO ×4 (08:23→21:58)
[2024-10-07] MEDS: NEURONTIN 300 MG PO ×4 (08:28→21:58)
--- NOTE | 2024-10-07 09:24 | W.PN.HOSP.TC ---
Addendum entered and electronically signed by Terrance Hodges MD 10/07/24 13:59:
ID reached out to me that she could be discharged. I was getting discharge ready but it appears the patient wants to stay overnight-not unreasonable since ID states that she can stay overnight or discharge today
Original Note:
Today's Communication/Plan
-
Antibiotics. ID eval
Assessment / Plan
Assessment / Plan
Physical Exam
General: Well Developed, Well Nourished, No Apparent Distress and Comfortable
HEENT: NormoCephalic, Moist mucous membranes, Nose Appears Normal and Ears Appear Normal. Tenderness and swelling left anterior cheek area
Respiratory: Clear
Cardiac: S1/S2 and Regular Rhythm
GI: Soft, Non Tender and Non Distended
Musculoskeletal: No Clubbing, No Cyanosis and No Edema
Skin: Warm, Dry and Rash
Neuro: Awake, Alert, Oriented and AO x 3
Psych: Calm
A/P:
Dental infection - Gum infection without obvious drainage or fluid collection. Moderate swelling on examination. Low grade temps. Recent Infliximab infusion
- admit to med/surg
- blood cultures, h/o streptococcus sp and hemaphilus para-influenza infection
- given prior reactions, getting ertapenem 1 g q 24 hours for now
- pain control with IV dilaudid, toradol and her home pain regimen (extensive opioids)
- CT facial--> minimal soft tissue stranding adjacent to the left mandible.
- ID consultation
- Discussed with patient, RN, and at bedside and we are making adjustment on her pain and antiemetics and bowel regimen medications.
Crohns - Stable without active findings
Anxiety -
- continue clonazepam
DVT PPX - lovenox sq
Code status - Full code
Anticipated Discharge: 24 - 48 hours
Subjective/Interval History
-
Date of Service: October 07, 2024
Patient complains of pain in the left face area. Complains of constipation. Complains of nausea. Afebrile
Objective Data
-
Labs:
Laboratory Results
10/07/24 10/07/24
01:07 06:07
WBC 8.8 9.2
Hgb 12.4 11.0 L
Hct 36.4 L 32.0 L
Plt Count 214 183
Sodium 140 139
Potassium 4.1 3.9
Chloride 105 107
Carbon Dioxide 26 24
BUN 12 10
Creatinine 0.8 0.7
Glucose 86 85
Calcium 8.9 8.2 L
Total Bilirubin 0.8
AST 27
ALT 20
Alkaline Phosphatase 98
Vital Signs:
Vital Signs
Temp Pulse Resp BP Pulse Ox
98.1 F 91 18 125/88 99
10/07/24 03:05 10/07/24 03:05 10/07/24 03:05 10/07/24 03:05 10/07/24 03:05
[2024-10-07] MEDS: MIRALAX 17 GRAMS PO (10:41)
[2024-10-07] MEDS: COLACE 100 MG PO ×2 (12:27→19:21)
[2024-10-07] MEDS: KLONOPIN 1 MG PO ×2 (12:27→23:56)
--- NOTE | 2024-10-07 12:52 | CON.ID ---
Consultation
-
Date/Time Consultation Requested: 10/07/24 3:31
Date/Time Consultation Performed: 10/07/24 12:52
Requesting Provider: Dr Miller
Performing Provider: Dr Morse
Reason for Consultation: recurrent dental/gum infection, h/o crohns, immunosuppressed
Chief Complaint / Past History
Chief Complaint
swelling
History of Present Illness
Ms Olivia is a 29 year old female with history of Crohns disease on Remicade. She is known to ID service for a history of recurrent dental infection complicated by facial cellulitis. She had undergone a series of dental procedures - most
recently 3 weeks ago. She believes she lacerated her gum while eating, she has some tenderness, erythema and swelling of the gum.
Patient now presenting for 1 day of dental pain in the left upper region, left maxillary facial pain, shaking chills and fevers. Pain radiating to the left nasal region and maxillary region. Also generalized fatigue, aches and chills throughout the
day. I spoke with her while auto transmission specialist and recommended she present to the ER given concern for sepsis and lack of oral options.
In the ER T 98.7, blood pressure was 106/60 with a pulse of 125 and respiratory rate of 19. She was at 90% on room air. WBC 9.2, hgb 11.0, plt 183, cr 0.7, facial bone ct notable for minimal soft tissue stranding of the L mandible, hardwear, CXR
PICC in place, blood cultures x2 are in progress, currently on ertapenem, ID is consulted for assistance with management.
Past History
Additional Past Medical History:
Apudoma of skin
[facility] (current) use of opiate analgesic
Other obsessive-compulsive disorder
Crohn's disease, unspecified, without complications
Obsessive-compulsive disorder
Mild episode of recurrent major depressive disorder
Crohn's disease
Mood disorder
Constipation,
Rectal prolapse
Celiac disease
Palpitations
Abdominal pain
Gastrointestinal Crohn's disease
Chronic pain syndrome
major depressive disorder with psychotic features
Anxiety
Additional Past Surgical History:
oral surgery
Allergy History:
amoxicillin [From Augmentin] Allergy (Intermediate, Verified 08/11/24 21:04)
Rash
clavulanic acid [From Augmentin] Allergy (Intermediate, Verified 08/11/24 21:04)
Rash
egg Allergy (Verified 08/11/24 21:04)
Anaphylaxis
gluten Allergy (Verified 08/11/24 21:04)
stomach pain
prochlorperazine Allergy (Verified 08/11/24 21:04)
Akathesia
shrimp Allergy (Verified 08/11/24 21:04)
Unknown
tree nut Allergy (Verified 08/11/24 21:04)
Hives
piperacillin [From Zosyn] Adverse Reaction (Severe, Verified 08/11/24 21:04)
Severe arthritic pain
tazobactam [From Zosyn] Adverse Reaction (Severe, Verified 08/11/24 21:04)
Severe arthritic pain
Quinolones Adverse Reaction (Mild, Verified 08/11/24 21:04)
Nausea
doxycycline Adverse Reaction (Verified 08/11/24 21:04)
Nausea / Vomiting
metronidazole Adverse Reaction (Verified 08/11/24 21:04)
Nausea / Vomiting
Medications Reviewed: Yes
Social History
Tobacco: Non-Smoker
Alcohol: None
Drug: None
Family History
Family History: Not Pertinent
Review of Systems
Review of Systems
General: Negative Fever or Chills
All systems: All other systems were reviewed and were negative
Vital Signs
Temp Pulse Resp BP Pulse Ox
98.1 F 91 18 125/88 99
10/07/24 03:05 10/07/24 03:05 10/07/24 03:05 10/07/24 03:05 10/07/24 03:05
Physical Exam
Physical Exam
Constitutional: No Acute Distress
Oral: Other (mild L maxillary gum swelling, erythema)
Cardiovascular: Regular Rate and S1/S2; Negative Murmur or Rub
Pulmonary: Clear and Symmetric; Negative Wheezes, Rales or Rhonchi
Gastrointestinal: Soft, Non Tender, Non Distended and Normal Bowel Sounds
Skin: Warm and Dry; Negative Rash or Jaundice
Lines: PICC (no erythema, warmth or tenderness)
Lab / Diagnostic Study Results
10/07/24 06:07
10/07/24 06:07
Abs Immat Gran (auto) 0.0 10^3/uL (0-0.05) 10/07/24 01:07
Absolute Neuts (auto) 3.7 10^3/uL (1.4-6.5) 10/07/24 01:07
Absolute Lymphs (auto) 3.9 10^3/uL (1.2-3.4) H 10/07/24 01:07
Absolute Monos (auto) 0.7 10^3/uL (0.1-0.6) H 10/07/24 01:07
Absolute Basos (auto) 0.1 10^3/uL (0-0.2) 10/07/24 01:07
Immature Gran % 0.2 % (0-0.5) 10/07/24 01:07
Neutrophils % 41.6 % (42.2-75.2) L 10/07/24 01:07
Lymphocytes % 44.2 % (20.5-51.1) 10/07/24 01:07
Monocytes % 7.9 % (1.7-9.3) 10/07/24 01:07
Eosinophils % 5.5 % (0-6) 10/07/24 01:07
Basophils % 0.6 % (0-2) 10/07/24 01:07
ESR 23 mm/hour (0-20) H 10/07/24 01:07
Lactic Acid Cancelled 10/07/24 04:15
C-Reactive Protein < 5.00 mg/L (0.0-10.00) 10/07/24 01:07
Microbiology Results
Micro:
10/07/24 01:07 Blood Culture - Pending
Blood/Venous
10/07/24 01:07 Blood Culture - Pending
Blood/Venous
Assessment / Plan
Fever and rigors
Chronic PICC Line
- blood cultures x2 no growth to date
- CT facial bone with minimal stranding
- tolerating ertapenem, has enough ertapenem at home to restart therapy through the and further doses could be delivered wednesday or wednesday
- new script provided to case management assistant
- PICC in place- no evidence of infection
- could be observed overnight or discharged today from ID perspective
management required interdisciplinary coordination (RN, IM service), review of cultures, review of allergies
--- NOTE | 2024-10-07 15:30 | CM ---
Addendum entered by Mitzi Sweeney RN 10/07/24 15:36:
Pt is not in care port.
Original Note:
Alert awake oriented patient who lives with her parents in a 2 story home with 2 steps to enter and 13 steps to bed/bathroom. She is independent in activates of daily living.She does not drive .SO Brain at bedside. Pt said her pain was too much to
answer questions. Tad completed IA.She is current with [facility] for IV antibiotics infusion .DARNELL BERNAL gave CM updated IV antibiotic script.SPoke with Daniel At [facility] who was updated pt may be discharged today. IV script faxed to [phone]
as instructed.
[facility]
Pharmacy [facility]
PCP Dr Dyson
PLAN Home with resumption of [facility] infusion
[2024-10-07] MEDS: LOVENOX 40 MG SC (17:24)
[2024-10-07] MEDS: PEPCID 20 MG PO (21:58)
[2024-10-07] MEDS: NON-FORMULARY ITEM 360 MG PO (21:58)
[2024-10-07] MEDS: PHENERGAN 50.5 MG IV (23:55)
[2024-10-07] MEDS: MELATONIN 10 MG PO (23:56)
[2024-10-07] MEDS: OXYCONTIN (CONTROLLED RELEASE) 10 MG PO (23:56)
[2024-10-08 00:03] VITALS: BP 98/67
[2024-10-08] MEDS: DILAUDID 0.5 MG IV ×4 (04:15→23:15)
[2024-10-08 05:00] LABS: % Basophils 0.4 % (0-2); % Eosinophils 5.4 % (0-6); % Immature Granulocytes 0.3 % (0-0.5); % Lymphocytes 51.9 % (20.5-51.1); % Monocytes 9.3 % (1.7-9.3); % Neutrophils 32.7 % (42.2-75.2); Absolute Eosinophils 0.4 10^3/uL (0-0.7); Absolute Lymphocytes 3.8 10^3/uL (1.2-3.4); Absolute Monocytes 0.7 10^3/uL (0.1-0.6); Absolute Neutrophils 2.4 10^3/uL (1.4-6.5); Hemoglobin 11.5 g/dL (12.0-16.0); Mean Corp Hgb Conc. 33.8 g/dL (33.0-37.0); Mean Corpuscular Hgb 27.3 pg (27.0-31.0); Mean Corpuscular Volume 80.6 fL (81.0-99.0); Nucleated Red Blood Cells % 0 %; Platelet Count 198 10^3/uL (130-400); Red Blood Cell Count 4.22 10^6/uL (4.20-5.40); Red Cell Dist. Width 14.2 % (11.5-14.5); White Blood Cell Count 7.2 10^3/uL (4.8-10.8)
[2024-10-08 05:05] LABS: Blood Urea Nitrogen 12 mg/dl (7-17); Calcium 8.7 mg/dl (8.4-10.2); Carbon Dioxide 27 mmol/L (22-30); Chloride 105 mmol/L (98-107); Estimated Creatinine Clearance 90 ml/min; Glucose 98 mg/dl (70-99); Potassium 4.3 mmol/L (3.5-5.1); Sodium 140 mmol/L (135-145); eGFR > 60.00
[2024-10-08] MEDS: ROXICODONE 10 MG PO ×4 (06:36→21:09)
[2024-10-08 07:05] VITALS: BP 110/67
--- NOTE | 2024-10-08 07:29 | W.PN.HOSP.TC ---
Today's Communication/Plan
-
IV antibiotics. Pain control.
Assessment / Plan
Assessment / Plan
Physical Exam
General: Well Developed, Well Nourished, No Apparent Distress and Comfortable
HEENT: NormoCephalic, Moist mucous membranes, Nose Appears Normal and Ears Appear Normal. Tenderness and swelling left anterior cheek area
Respiratory: Clear
Cardiac: S1/S2 and Regular Rhythm
GI: Soft, Non Tender and Non Distended
Musculoskeletal: No Clubbing, No Cyanosis and No Edema
Skin: Warm, Dry and Rash
Neuro: Awake, Alert, Oriented and AO x 3
Psych: Calm
A/P:
Recurrent facial cellulitis and dental infection:
Continue IV Ertapenem
Multiple antibiotic allergies
Seen facial CT
Appreciated ID consult
Continue pain control
Blood cultures no growth
Crohn's disease:
Stable
Chronic pain with narcotic dependence:
On high dose of pain medications OxyContin 10 mg p.o. at nighttime and Oxycodone 10 mg p.o. 4 to 5 times a day and currently on IV Dilaudid for breakthrough pain
On bowel regimen
Depression anxiety:
Continue Klonopin
Continue Cymbalta
DVT prophylaxis:
Lovenox SQ
CODE STATUS:
Full code
Anticipated Discharge: Within 24 hours
Subjective/Interval History
-
Date of Service: October 08, 2024
Patient states pain has not been well-controlled. Afebrile
Objective Data
-
Labs:
Laboratory Results
10/08/24
04:07
WBC 7.2
Hgb 11.5 L
Hct 34.0 L
Plt Count 198
Sodium 140
Potassium 4.3
Chloride 105
Carbon Dioxide 27
BUN 12
Creatinine 0.8
Glucose 98
Calcium 8.7
Vital Signs:
Vital Signs
Temp Pulse Resp BP Pulse Ox
98.5 F 95 18 98/67 98
10/07/24 22:35 10/08/24 00:03 10/07/24 22:35 10/08/24 00:03 10/07/24 22:35
I&O
10/07/24 10/08/24 10/09/24
06:59 06:59 06:59
Intake Total 960 / 960
Balance 960 / 960
[2024-10-08] MEDS: COLACE 100 MG PO ×2 (08:06→21:09)
[2024-10-08] MEDS: NEURONTIN 300 MG PO ×4 (08:06→22:06)
[2024-10-08] MEDS: ATARAX 25 MG PO ×4 (08:06→22:06)
[2024-10-08] MEDS: CYMBALTA DELAYED RELEASE 90 MG PO (08:06)
[2024-10-08] MEDS: VISBIOME 2 CAP PO (08:07)
[2024-10-08] MEDS: VITAMIN C 500 MG PO ×2 (08:10→21:09)
[2024-10-08] MEDS: DILAUDID 1 MG IV ×2 (09:42→18:02)
[2024-10-08] MEDS: MIRALAX 17 GRAMS PO (10:14)
[2024-10-08] MEDS: KLONOPIN 1 MG PO (12:25)
[2024-10-08 15:05] VITALS: BP 115/68
[2024-10-08] MEDS: LOVENOX 40 MG SC (17:29)
[2024-10-08] MEDS: SENOKOT-S 1 TABLET PO (17:59)
[2024-10-08] MEDS: NON-FORMULARY ITEM 360 MG PO (22:06)
[2024-10-08] MEDS: PEPCID 40 MG PO (22:06)
[2024-10-08] MEDS: INVANZ 60 MG IV (22:06)
[2024-10-08 23:23] VITALS: BP 113/72
[2024-10-09] MEDS: KLONOPIN 1 MG PO ×3 (00:02→23:35)
[2024-10-09] MEDS: MELATONIN 10 MG PO ×2 (00:02→23:33)
[2024-10-09] MEDS: OXYCONTIN (CONTROLLED RELEASE) 10 MG PO ×2 (00:03→23:35)
[2024-10-09] MEDS: ROXICODONE 10 MG PO ×5 (02:02→21:00)
[2024-10-09 06:09] LABS: % Basophils 0.4 % (0-2); % Eosinophils 5.8 % (0-6); % Immature Granulocytes 0.1 % (0-0.5); % Lymphocytes 48.6 % (20.5-51.1); % Monocytes 9.2 % (1.7-9.3); % Neutrophils 35.9 % (42.2-75.2); Absolute Eosinophils 0.4 10^3/uL (0-0.7); Absolute Lymphocytes 3.4 10^3/uL (1.2-3.4); Absolute Monocytes 0.7 10^3/uL (0.1-0.6); Absolute Neutrophils 2.5 10^3/uL (1.4-6.5); Hematocrit 33.3 % (37.0-47.0); Hemoglobin 11.4 g/dL (12.0-16.0); Mean Corp Hgb Conc. 34.2 g/dL (33.0-37.0); Mean Corpuscular Hgb 27.3 pg (27.0-31.0); Mean Corpuscular Volume 79.7 fL (81.0-99.0); Mean Platelet Volume 11.9 fL (7.4-10.4); Nucleated Red Blood Cells % 0 %; Platelet Count 198 10^3/uL (130-400); Red Blood Cell Count 4.18 10^6/uL (4.20-5.40); Red Cell Dist. Width 13.9 % (11.5-14.5)
[2024-10-09 06:33] LABS: Blood Urea Nitrogen 19 mg/dl (7-17); Calcium 8.6 mg/dl (8.4-10.2); Carbon Dioxide 27 mmol/L (22-30); Chloride 104 mmol/L (98-107); Estimated Creatinine Clearance 90 ml/min; Glucose 87 mg/dl (70-99); Potassium 4.2 mmol/L (3.5-5.1); Sodium 139 mmol/L (135-145); eGFR > 60.00
[2024-10-09 07:00] VITALS: BP 89/62
[2024-10-09] MEDS: VISBIOME 2 CAP PO (08:18)
[2024-10-09] MEDS: VITAMIN C 500 MG PO ×2 (08:19→20:02)
[2024-10-09] MEDS: CYMBALTA DELAYED RELEASE 90 MG PO (08:20)
[2024-10-09] MEDS: MIRALAX 17 GRAMS PO (08:20)
[2024-10-09] MEDS: COLACE 100 MG PO (08:20)
[2024-10-09] MEDS: ATARAX 25 MG PO ×4 (08:35→22:20)
[2024-10-09] MEDS: NEURONTIN 300 MG PO ×4 (08:35→22:20)
[2024-10-09] MEDS: DILAUDID 0.5 MG IV (09:17)
[2024-10-09] MEDS: DULCOLAX 10 MG PO (10:06)
[2024-10-09] MEDS: DILAUDID 1 MG IV ×3 (11:39→20:05)
--- NOTE | 2024-10-09 12:31 | CM ---
CM reviewed chart, patient seen bedside. Patient reports she has already spoken with [facility] as patient is active for home IV antibiotics. CM spoke with Supa at [facility], confirmed patient is active, will fax updated clinicals. Patient
denies other needs at this time, will continue to follow for all discharge planning needs.
Plan; home with continuance of [facility] for IV antibiotics
--- NOTE | 2024-10-09 14:34 | W.PN.ID1 ---
Date of Service
Date of Service: October 09, 2024
Today's Communication
- tolerating ertapenem, plan a 7 day course 10/06-10/12
- new script provided to field case manager 10/07
- PICC in place- no evidence of infection
- stable for dc from ID perspective when home IV antibiotics are set up
Assessment / Plan
Odontogenic Infection
Chronic PICC Line
- blood cultures x2 no growth to date
- CT facial bone with minimal stranding
- tolerating ertapenem, plan a 7 day course 10/06-10/12
- new script provided to field case manager 10/07
- PICC in place- no evidence of infection
- stable for dc from ID perspective when home IV antibiotics are set up
Chief Complaint
-: Other (facial cellulitis)
Subjective / Review of Systems
afebrile
bp stable
reports some rectal bleeding
Vital Signs / Physical Exam
Vital Signs
Vital Signs
Temp Pulse Resp BP Pulse Ox
97.6 F 95 20 89/62 98
10/09/24 07:00 10/09/24 07:00 10/09/24 07:00 10/09/24 07:00 10/09/24 07:00
Physical Exam
Constitutional: No Acute Distress
Head: Other (persistent erythema over the L maxillary gum)
Cardiovascular: Regular Rate and S1/S2; Negative Murmur or Rub
Pulmonary: Clear and Symmetric; Negative Wheezes or Rales
Gastrointestinal: Soft, Non Tender, Non Distended and Normal Bowel Sounds
Skin: Warm and Dry; Negative Rash or Jaundice
Objective Data
Lab Data
Lab Results
10/09/24 05:44
10/09/24 05:44
ESR 23 mm/hour (0-20) H 10/07/24 01:07
Estimated Creat Clear 90 ml/min 10/09/24 05:44
Lactic Acid Cancelled 10/07/24 04:15
Total Bilirubin 0.8 mg/dl (0.2-1.3) 10/07/24 01:07
AST 27 U/L (14-36) 10/07/24 01:07
ALT 20 U/L (0-35) 10/07/24 01:07
Alkaline Phosphatase 98 U/L (38-126) 10/07/24 01:07
C-Reactive Protein < 5.00 mg/L (0.0-10.00) 10/07/24 01:07
Most recent labs reviewed.
Micro Results:
10/07/24 01:07 Blood Culture - Preliminary
Blood/Venous No Growth in 48 hours- Final report to follow
10/07/24 01:07 Blood Culture - Preliminary
Blood/Venous No Growth in 48 hours- Final report to follow
[2024-10-09 15:00] VITALS: BP 110/70
--- NOTE | 2024-10-09 15:24 | W.PN.HOSP.TC ---
Today's Communication/Plan
-
Discharge today if feeling better
Assessment / Plan
Assessment / Plan
Impression
This is a 29 y.o female with h/o Crohns disease on Remicade, h/o recurrent dental infection complicated by facial cellulitis and s/p dental bone graft infection-removed 06/2024 who was recently admitted in july for root canal infection s/p 2
weeks of ertapenem coming in with left upper dental pain for 1 day.
Chronic pain on opioids at home.
Sent to ED after left upper dental pain, left maxillary pain and low grade fever.�
Dr. Morse, recommended admission and IV Ertapenem.�
No drainage or abscess
CT facial bones negative.�
Blood cultures, abx started, pain control
Will be discharged on ertapenem.
Assessment/plan:
Recurrent facial cellulitis and dental infection:
Continue IV Ertapenem
Multiple antibiotic allergies
Seen facial CT
Appreciated ID consult
Continue pain control
Blood cultures no growth
10/09
Discharge home on ertapenem
Crohn's disease:
Stable
Chronic pain with narcotic dependence:
On high dose of pain medications OxyContin 10 mg p.o. at nighttime and Oxycodone 10 mg p.o. 4 to 5 times a day and currently on IV Dilaudid for breakthrough pain
On bowel regimen
Added Bentyl for abdominal pain
Depression anxiety:
Continue Klonopin
Continue Cymbalta
DVT prophylaxis:
Lovenox SQ
CODE STATUS:
Full code
Total time spent on today's encounter was 65 minutes which included time spent in counseling the patient/family regarding diagnosis and treatment plan as listed above, goals of care, and symptom management. Case was discussed with nursing staff,
specialists, and care coordinators/case management. All labs and imaging personally reviewed by me. Remainder the time spent in detailed review of previous records, lab data, imaging, and other medical provider documentation.
Anticipated Discharge: Today
Subjective/Interval History
-
Date of Service: October 09, 2024
Patient seen and examined at bedside, father at bedside.
Patient still complaining of left maxillary pain.
Was complaining of constipation which resolved after Dulcolax.
Abdominal cramps with bowel movement, will add Bentyl.
No nausea or vomiting, complaining of joint pain.
Objective Data
-
Labs:
Laboratory Results
10/09/24
05:44
WBC 7.0
Hgb 11.4 L
Hct 33.3 L
Plt Count 198
Sodium 139
Potassium 4.2
Chloride 104
Carbon Dioxide 27
BUN 19 H
Creatinine 0.8
Glucose 87
Calcium 8.6
Vital Signs:
Vital Signs
Temp Pulse Resp BP Pulse Ox
97.6 F 95 20 89/62 98
10/09/24 07:00 10/09/24 07:00 10/09/24 07:00 10/09/24 07:00 10/09/24 07:00
I&O
10/08/24 10/09/24 10/10/24
06:59 06:59 06:59
Intake Total 960 / 960 2670 / 2670
Balance 960 / 960 2670 / 2670
Physical Exam
-
General: Well Developed, Well Nourished, No Apparent Distress and Comfortable
HEENT: Normocephalic, Atraumatic, Moist Mucous Membranes, No Ptosis, PERRLA, Nose Appears Normal and Other (Left facial swelling); Negative Good Dentition (Gum swelling on left upper teeth)
Respiratory: Clear to Auscultation and Non Labored Respirations
Cardiac: Regular Rhythm and S1/S2
Breast: Deferred by me
GI: Soft, Nontender, Nondistended and Normal Bowel Sounds
Genito-urinary: No Costovertebral Tender
Musculoskeletal: No Clubbing, No Cyanosis and No Edema
Skin: Warm
Neuro: Awake, Alert, Oriented, AO x 3 and No Motor Deficits
Psych: Calm
Data Reviewed
-
Diagnostic Radiology: Image personally visualized and interpreted and Report Reviewed by me
CT Scan: Image personally visualized and interpreted and Report Reviewed by me
Ultrasound: Image personally visualized and interpreted and Report Reviewed by me
MRI: Image personally visualized and interpreted and Report Reviewed by me
Medical Tests (Nuc Med, Echo etc): Image personally visualized and interpreted and Report Reviewed by me
Labs: Labs Reviewed by me
Old Records: Reviewed
[2024-10-09] MEDS: NSS 1000 IV (15:39)
[2024-10-09] MEDS: LOVENOX 40 MG SC (16:59)
[2024-10-09] MEDS: COLACE PO (20:02)
[2024-10-09] MEDS: INVANZ 60 MG IV (22:19)
[2024-10-09] MEDS: PEPCID 40 MG PO (22:20)
[2024-10-09] MEDS: NON-FORMULARY ITEM 360 MG PO (22:20)
[2024-10-09 22:29] VITALS: BP 110/67
[2024-10-10] MEDS: NSS 1000 IV ×2 (01:02→10:27)
[2024-10-10] MEDS: ROXICODONE 10 MG PO ×4 (01:04→17:04)
[2024-10-10] MEDS: DILAUDID 1 MG IV ×3 (02:29→14:33)
[2024-10-10 07:00] VITALS: BP 98/65
[2024-10-10] MEDS: CYMBALTA DELAYED RELEASE 90 MG PO (07:30)
[2024-10-10] MEDS: VITAMIN C 500 MG PO (07:31)
[2024-10-10] MEDS: COLACE 100 MG PO (07:31)
[2024-10-10] MEDS: ATARAX 25 MG PO ×3 (07:31→17:04)
[2024-10-10] MEDS: VISBIOME 2 CAP PO (07:31)
[2024-10-10] MEDS: NEURONTIN 300 MG PO ×3 (07:31→17:04)
[2024-10-10] MEDS: MIRALAX 17 GRAMS PO (07:32)
[2024-10-10] MEDS: BENTYL 10 MG PO (09:17)
[2024-10-10 09:45] LABS: Hematocrit 34.2 % (37.0-47.0); Hemoglobin 11.8 g/dL (12.0-16.0); Mean Corp Hgb Conc. 34.5 g/dL (33.0-37.0); Mean Corpuscular Hgb 27.6 pg (27.0-31.0); Mean Corpuscular Volume 80.1 fL (81.0-99.0); Mean Platelet Volume 10.9 fL (7.4-10.4); Platelet Count 202 10^3/uL (130-400); Red Blood Cell Count 4.27 10^6/uL (4.20-5.40)
[2024-10-10 10:11] LABS: Blood Urea Nitrogen 12 mg/dl (7-17); Calcium 8.6 mg/dl (8.4-10.2); Carbon Dioxide 23 mmol/L (22-30); Chloride 108 mmol/L (98-107); Estimated Creatinine Clearance 103 ml/min; Glucose 89 mg/dl (70-99); Potassium 4.3 mmol/L (3.5-5.1); Sodium 140 mmol/L (135-145); eGFR > 60.00
--- NOTE | 2024-10-10 11:51 | W.PN.ID1 ---
Date of Service
Date of Service: October 10, 2024
Today's Communication
- tolerating ertapenem, plan a 7 day course 10/07-10/13
- new script provided to lining caser 10/07
- PICC in place- no evidence of infection
- stable for dc from ID perspective when home IV antibiotics are set up
Assessment / Plan
Odontogenic Infection
Chronic PICC Line
- blood cultures x2 no growth to date
- CT facial bone with minimal stranding
- tolerating ertapenem, plan a 7 day course 10/07-10/13
- new script provided to lining caser 10/07
- PICC in place- no evidence of infection
- stable for dc from ID perspective when home IV antibiotics are set up
Chief Complaint
-: Other (facial cellulitis)
Subjective / Review of Systems
afebrile
bp stable
tolerating current therapies
Vital Signs / Physical Exam
Vital Signs
Vital Signs
Temp Pulse Resp BP Pulse Ox
97.9 F 73 21 98/65 99
10/10/24 07:00 10/10/24 07:00 10/10/24 07:00 10/10/24 07:00 10/10/24 07:35
Physical Exam
Constitutional: No Acute Distress
Cardiovascular: Regular Rate and S1/S2; Negative Murmur or Rub
Pulmonary: Clear and Symmetric; Negative Wheezes or Rales
Gastrointestinal: Soft, Non Tender, Non Distended and Normal Bowel Sounds
Skin: Warm and Dry; Negative Rash or Jaundice
Objective Data
Lab Data
Lab Results
10/10/24 09:25
10/10/24 09:25
ESR 23 mm/hour (0-20) H 10/07/24 01:07
Estimated Creat Clear 103 ml/min 10/10/24 09:25
Lactic Acid Cancelled 10/07/24 04:15
Total Bilirubin 0.8 mg/dl (0.2-1.3) 10/07/24 01:07
AST 27 U/L (14-36) 10/07/24 01:07
ALT 20 U/L (0-35) 10/07/24 01:07
Alkaline Phosphatase 98 U/L (38-126) 10/07/24 01:07
C-Reactive Protein < 5.00 mg/L (0.0-10.00) 10/07/24 01:07
Most recent labs reviewed.
Micro Results:
10/07/24 01:07 Blood Culture - Preliminary
Blood/Venous No Growth in 72 hours- Final report to follow
10/07/24 01:07 Blood Culture - Preliminary
Blood/Venous No Growth in 72 hours- Final report to follow
[2024-10-10] MEDS: KLONOPIN 1 MG PO (12:47)
[2024-10-10 12:50] VITALS: BP 122/85
--- NOTE | 2024-10-10 12:50 | PTCARENOTE ---
10/10- Patient states she is, 'in excruciating pain from the bentyl. Ever since I took that, I've been keeled over and now had another bloody bowel movement. I mean, not bloody like clots, but some tinges of blood in it.' Patient already flushed BM
down the toilet, so it was unwitnessed. She stated the BM was otherwise brown soft and formed. She denies straining. She denies current pain since taking the Oxycodone and Atarax. Abd soft/NT/ND with +BSX4. VSS. Patient states she 'may need my
Dilaudid soon too.' States her pain is about 5-7 at baseline and is now back up to a 7 because of the Bentyl. Notified Physician.
--- NOTE | 2024-10-10 14:15 | W.PN.HOSP.TC ---
Today's Communication/Plan
-
Cleared for discharge today
Assessment / Plan
Assessment / Plan
Impression
This is a 29 y.o female with h/o Crohns disease on Remicade, h/o recurrent dental infection complicated by facial cellulitis and s/p dental bone graft infection-removed 06/2024 who was recently admitted in july for root canal infection s/p 2
weeks of ertapenem coming in with left upper dental pain for 1 day.
Chronic pain on opioids at home.
Sent to ED after left upper dental pain, left maxillary pain and low grade fever.�
Dr. Morse, recommended admission and IV Ertapenem.�
No drainage or abscess
CT facial bones negative.�
Blood cultures, abx started, pain control
Will be discharged on ertapenem.
Assessment/plan:
Recurrent facial cellulitis and dental infection:
Continue IV Ertapenem
Multiple antibiotic allergies
Seen facial CT
Appreciated ID consult
Continue pain control
Blood cultures no growth
10/09
Discharge home on ertapenem
Crohn's disease:
Stable
Chronic pain with narcotic dependence:
On high dose of pain medications OxyContin 10 mg p.o. at nighttime and Oxycodone 10 mg p.o. 4 to 5 times a day and currently on IV Dilaudid for breakthrough pain
On bowel regimen
Added Bentyl for abdominal pain but patient stated that her pain worsening with Bentyl, will discontinue
Depression anxiety:
Continue Klonopin
Continue Cymbalta
DVT prophylaxis:
Lovenox SQ
CODE STATUS:
Full code
Total time spent on today's encounter was 65 minutes which included time spent in counseling the patient/family regarding diagnosis and treatment plan as listed above, goals of care, and symptom management. Case was discussed with nursing staff,
specialists, and care coordinators/case management. All labs and imaging personally reviewed by me. Remainder the time spent in detailed review of previous records, lab data, imaging, and other medical provider documentation.
Anticipated Discharge: Today
Subjective/Interval History
-
Date of Service: October 10, 2024
Patient seen and examined at bedside, at bedside.
Patient still complaining of left maxillary pain.
Was complaining of frequent bowel movement
Abdominal cramps with bowel movement, added Bentyl but did not help with the pain
No nausea or vomiting, complaining of generalized joint pain.
Objective Data
-
Labs:
Laboratory Results
10/10/24
09:25
WBC 6.0
Hgb 11.8 L
Hct 34.2 L
Plt Count 202
Sodium 140
Potassium 4.3
Chloride 108 H
Carbon Dioxide 23
BUN 12
Creatinine 0.7
Glucose 89
Calcium 8.6
Vital Signs:
Vital Signs
Temp Pulse Resp BP Pulse Ox
97.8 F 82 16 122/85 98
10/10/24 12:50 10/10/24 12:50 10/10/24 12:50 10/10/24 12:50 10/10/24 12:50
I&O
10/09/24 10/10/24 10/11/24
06:59 06:59 06:59
Intake Total 2670 / 2670 2140 / 2140
Output Total 800 / 800
Balance 2670 / 2670 1340 / 1340
Physical Exam
-
General: Well Developed, Well Nourished, No Apparent Distress and Comfortable
HEENT: Normocephalic, Atraumatic, Moist Mucous Membranes, No Ptosis, PERRLA, Nose Appears Normal and Other (Left facial swelling); Negative Good Dentition (Gum swelling on left upper teeth)
Respiratory: Clear to Auscultation and Non Labored Respirations
Cardiac: Regular Rhythm and S1/S2
Breast: Deferred by me
GI: Soft, Nontender, Nondistended and Normal Bowel Sounds
Genito-urinary: No Costovertebral Tender
Musculoskeletal: No Clubbing, No Cyanosis and No Edema
Skin: Warm
Neuro: Awake, Alert, Oriented, AO x 3 and No Motor Deficits
Psych: Calm
Data Reviewed
-
Diagnostic Radiology: Image personally visualized and interpreted and Report Reviewed by me
CT Scan: Image personally visualized and interpreted and Report Reviewed by me
Ultrasound: Image personally visualized and interpreted and Report Reviewed by me
MRI: Image personally visualized and interpreted and Report Reviewed by me
Medical Tests (Nuc Med, Echo etc): Image personally visualized and interpreted and Report Reviewed by me
Labs: Labs Reviewed by me
Old Records: Reviewed
--- NOTE | 2024-10-10 14:40 | W.DCSUMMARY ---
Discharge Summary
Discharge Data
Date of Admission: 10/07/24
Date of Discharge: 10/10/24
-
Pending Results: No
Hospital Course
Hospital course
This is a 29 y.o female with h/o Crohns disease on Remicade, h/o recurrent dental infection complicated by facial cellulitis and s/p dental bone graft infection-removed 06/2024 who was recently admitted in july for root canal infection s/p 2
weeks of ertapenem coming in with left upper dental pain for 1 day.
Chronic pain on opioids at home.
Sent to ED after left upper dental pain, left maxillary pain and low grade fever.�
Dr. Morse, recommended admission and IV Ertapenem.�
No drainage or abscess
CT facial bones negative.�
Blood cultures, abx started, pain control
Will be discharged on ertapenem.
During hospitalization patient was treated from the follwing
Recurrent facial cellulitis and dental infection:
Continue IV Ertapenem
Multiple antibiotic allergies
Seen facial CT
Appreciated ID consult
Continue pain control
Blood cultures no growth
10/09
Discharge home on ertapenem
Crohn's disease:
Stable
Chronic pain with narcotic dependence:
On high dose of pain medications OxyContin 10 mg p.o. at nighttime and Oxycodone 10 mg p.o. 4 to 5 times a day and currently on IV Dilaudid for breakthrough pain
On bowel regimen
Added Bentyl for abdominal pain but patient stated that her pain worsening with Bentyl, will discontinue
Depression anxiety:
Continue Klonopin
Continue Cymbalta
DVT prophylaxis:
Lovenox SQ
CODE STATUS:
Full code
Total time spent on today's encounter was 40 minutes which included time spent in counseling the patient/family regarding diagnosis and treatment plan as listed above, goals of care, and symptom management. Case was discussed with nursing staff,
specialists, and care coordinators/case management. All labs and imaging personally reviewed by me. Remainder the time spent in detailed review of previous records, lab data, imaging, and other medical provider documentation.
Anticipated Discharge: Today
Discharge Plan
-
Patient Disposition: Home with Home Care
Discharge Diagnosis/Procedures: Recurrent facial and dental infection. History of Crohn's disease. Chronic opioid dependence.
Diet: Low Cholesterol
Activity: As tolerated
Blood Work: Please PCP and or ID to order CBC, BMP within 1 week
Referrals:
Nadege Dyson PA [Family Provider] - in less than 1 week
Marli Morse MD [Active] - in one to two weeks
Prescriptions:
New
Ertapenem [Invanz] 1000 MG
0.9% Sodium Chloride [Nss] 50 ML
120 mls/hr IV Q24H
Ordered By: Terrance Hodges MD
Last Taken: 10/09/24 22:19 60 mls
Continued
oxycodone 10 mg Tablet
10 mg PO QID@07,12,17,21
clonazepam 1 mg Tablet
1 mg PO BID@1130,2300
fexofenadine 180 mg Tablet
360 mg PO HS
Patient Comments:
patient will provide
acetaminophen [Tylenol Extra Strength] 500 mg Tablet
1,000 mg PO Q6HPRN PRN (Reason: mild pain)
famotidine [Pepcid] 20 mg Tablet
40 mg PO HS
ascorbic acid (vitamin C) [Vitamin C] 500 mg Tablet
500 mg PO BID
infliximab [Remicade] 100 mg Recon Soln
7.5 mg IV Q6W
Rx Instructions:
7.5 mg/kg
gabapentin 300 mg Capsule
300 mg PO QID@,,,
hydroxyzine pamoate 25 mg capsule
25 mg PO QID@,,,
duloxetine [Cymbalta] 30 mg Capsule,Delayed Release(Dr/Ec)
30 mg PO DAILY
Rx Instructions:
take with 60mg
duloxetine [Cymbalta] 60 mg Capsule,Delayed Release(Dr/Ec)
60 mg PO DAILY
Rx Instructions:
take with 30mg
melatonin 10 mg Tablet
10 mg PO HS@2300
oxycodone [OxyContin] 10 mg Tablet,Oral Only,Ext.Rel.12 Hr
10 mg PO HS@2300
vitamin A 3,000 mcg (10,000 unit) Capsule
3,000 mcg PO HS
therapeutic multivitamin Tablet
1 tab PO HS
hydromorphone 4 mg Tablet
4 mg PO Q4HPRN PRN (Reason: severe breakthrough pain)
Patient Comments:
Pt reports 'I took 2 mg so I split it in half'
Visbiome 112.5 billion cell capsule
2 cap PO DAILY Qty: 30 0RF
oxycodone 10 mg Tablet
10 mg PO HSPRN PRN (Reason: severe pain)
polyethylene glycol 3350 [Miralax] 17 gram Powder In Packet
17 g PO DAILYPRN PRN (Reason: constipation)
docusate sodium 100 mg Tablet
300 mg PO DAILYPRN PRN (Reason: constipation)
Discontinued
Ertapenem [Invanz] 1000 MG
0.9% Sodium Chloride [Nss] 50 ML
100 mls/hr IV Q24H
Ordered By: Thalia Ray MD
Last Taken: Unknown
Discharge Orders:
Discharge Patient (As Directed); Ordered 10/09/24
Ordered By: Ede Barrios
Discharge Date and Time
Print Language: FRISIAN
[2024-10-10 14:45] VITALS: BP 107/62
[2024-10-10] MEDS: LOVENOX 40 MG SC (17:06)
[2024-10-10] MEDS: DILAUDID 0.5 MG IV (17:11)
== END 2024-10-10 17:54 | disposition home or self-care (01) | DRG 158 ==
LOC: 4 WEST ACU 03:26
PROVIDERS: Hospitalist; ADMITTING PHYSICIAN Internal Medicine; ATTENDING PHYSICIAN General Practice; CONSULT PHYSICIAN Student in an Organized Health Care Education/Training Program; EMERGENCY PHYSICIAN Emergency Medicine; FAMILY PHYSICIAN Physician Assistant Medical
DX: K04.7 Periapical abscess without sinus (principal); D84.821 Immunodeficiency due to drugs; F11.20 Opioid dependence, uncomplicated; K50.90 Crohn's disease, unspecified, without complications; L03.211 Cellulitis of face; F33.0 Major depressive disorder, recurrent, mild; G89.4 Chronic pain syndrome; F41.9 Anxiety disorder, unspecified; F42.8 Other obsessive-compulsive disorder; K05.10 Chronic gingivitis, plaque induced; K90.0 Celiac disease; Z79.620 Long term (current) use of immunosuppressive biologic; Z79.899 Other long term (current) drug therapy; Z88.1 Allergy status to other antibiotic agents; Z88.0 Allergy status to penicillin
CPT/HCPCS: 70487; 71046; 80048; 80053; 83605; 85025; 85027; 85652; 86140; 87040; 96361; 96365; 96375; 99285; J1335; Q9967

== ENCOUNTER 2024-10-15 16:52 | Inpatient (IN) | payer BC, SELFPAY ==
[2024-10-15 11:14] VITALS: BP 129/72
[2024-10-15 13:23] LABS: % Basophils 0.4 % (0-2); % Eosinophils 7.2 % (0-6); % Immature Granulocytes 0.1 % (0-0.5); % Lymphocytes 43.8 % (20.5-51.1); % Neutrophils 39.5 % (42.2-75.2); Absolute Eosinophils 0.5 10^3/uL (0-0.7); Absolute Lymphocytes 3.3 10^3/uL (1.2-3.4); Absolute Monocytes 0.7 10^3/uL (0.1-0.6); Absolute Neutrophils 2.9 10^3/uL (1.4-6.5); Hematocrit 33.6 % (37.0-47.0); Hemoglobin 11.6 g/dL (12.0-16.0); Mean Corp Hgb Conc. 34.5 g/dL (33.0-37.0); Mean Corpuscular Hgb 27.9 pg (27.0-31.0); Mean Corpuscular Volume 80.8 fL (81.0-99.0); Nucleated Red Blood Cells % 0 %; Platelet Count 220 10^3/uL (130-400); Red Blood Cell Count 4.16 10^6/uL (4.20-5.40); Red Cell Dist. Width 14.1 % (11.5-14.5); White Blood Cell Count 7.5 10^3/uL (4.8-10.8)
[2024-10-15 13:36] LABS: ALT (SGPT) 28 U/L (0-35); AST (SGOT) 34 U/L (14-36); Albumin 3.7 g/dl (3.5-5.0); Alkaline Phosphatase 112 U/L (38-126); Blood Urea Nitrogen 14 mg/dl (7-17); Calcium 8.9 mg/dl (8.4-10.2); Carbon Dioxide 27 mmol/L (22-30); Chloride 105 mmol/L (98-107); Glucose 98 mg/dl (70-99); Potassium 4.2 mmol/L (3.5-5.1); Sodium 141 mmol/L (135-145); Total Bilirubin 0.6 mg/dl (0.2-1.3); Total Protein 6.9 g/dl (6.3-8.2); eGFR > 60.00
[2024-10-15 13:39] LABS: Lactic Acid 0.8 mmol/L (0.7-2.0)
[2024-10-15] MEDS: NSS 500 IV (13:47)
[2024-10-15] MEDS: DILAUDID 1 MG IV ×4 (13:48→22:06)
[2024-10-15 14:00] VITALS: BP 98/60
[2024-10-15 14:49] VITALS: BP 110/75
[2024-10-15 15:00] VITALS: BP 100/63
--- NOTE | 2024-10-15 15:48 | ED.GENMED ---
History of Present Illness
General
Chief Complaint: Fever
Source: patient
Exam Limitations: none
Time Seen by Provider: 10/15/24 12:35
Nursing documentation reviewed up to this point in time: agreed with
History of Present Illness
History of Present Illness:
Patient discharged from hospital last week after receiving treatment via IV antibiotics secondary to oral infection, completed ertapenem as an outpatient 2 days ago, presents to ED secondary to continual pain with fever and chills, despite
antibiotics. Denies vomiting or diarrhea. Denies headache. Denies dizziness. Patient reports decreased appetite. Denies chest pain or shortness of breath. Denies coughing. Patient also reports joint pain, which appears to be worse than her
chronic pain, for which she takes oxycodone as an outpatient.
Past History
Past History
ED Past Medical History: Other (Crohn's disease, celiac, IBS, anxiety), Other (Recurrent dental infections/facial cellulitis-PICC line in place.) and Other (Chronic pain syndrome-narcotic dependent)
ED Past Surgical History: Orthopedic and Other (Bowel surgery)
Social History
Tobacco: Non-smoker
Alcohol: Occasional
Drug: None
Personal: Single (Engage)
Living: with family
Employment: Not employed
Family History
Family History: Other (her dads mother had Juvenile RA, mother has palpitations)
Review of Systems
Review of Systems
Allergies reviewed?: Yes
All Other Systems: ROS reviewed and negative except as documented in HPI and ROS
Constitutional: Reports fever and chills
EENT: Reports other (Dental pain)
Respiratory: Reports no symptoms
Cardiac: Reports no symptoms
ABD/GI: Denies vomiting or diarrhea
: Reports no symptoms
Musculoskeletal: Reports joint pain and muscle pain
Skin: Reports no symptoms
Neurological: Reports no symptoms
Phy Exam
Physical Exam
Physical Exam:
Physical Exam
General: mild painful distress, not acutely ill. afebrile. tachycardic
Head: nc/at. eomi
Neck: supple. no meningeal signs. normal posterior pharynx. mild gingival tenderness noted over #10 tooth, without drainage.
Heart: tachycardic, no murmur.
Lungs: no acute respiratory distress. clear bilaterally
Abdomen: normal bowel sounds. not tender.
Neuro: alert and oriented x 3. no focal neurological deficits
Skin: no rash
Psychiatric: well kept. interactive and cooperative
Extremities: no edema. no calf tenderness.
Course
Orders/Labs/Results
Orders:
Orders
10/15/24 12:54
0.9% Sodium Chloride 500 ml [Nss] 500 ml IV BOLUS
HYDROmorphone [Dilaudid] 1 mg IV NOW STA
CR Chest Portable - 1 View Urgent
Comment:
Reason For Exam: PICC line placement
Reason Study Needs to be Portable: Other
10/15/24 13:13
Complete Blood Count/With Diff Urgent
Comprehensive Metabolic Panel Urgent
Lactic Acid Q4H
Comment: CANCEL 2nd LACTIC ACID IF 1st LACTIC ACID IS LESS THAN 2
10/15/24 13:28
Blood Culture Q30M
DESIRE Source: Blood/Venous
Specimen Description:
Blood Culture Q30M
DESIRE Source: Blood/Venous
Specimen Description:
10/15/24 14:37
HYDROmorphone [Dilaudid] 1 mg IV NOW STA
10/15/24 16:18
Ertapenem [Invanz] 1,000 mg 0.9% Sodium Chloride [Nss] 50 ml IV NOW
10/15/24 16:41
Admit/Transfer Patient As Directed
Co-Sign Provider:
Level of Care: Inpatient admission
Assign to:: Medical/Surgical
Physician / Group: Trudy Fisher
Diagnosis: dental infection
Reason for Hospitalization: dental infection
Expected length of stay greater than two midnights?: Yes
ELOS- Estimated Length of Stay in days: 3
I certify the patient meets the requirements for IP care: Yes
PRN Pain Medication Management As Directed
May give lesser potent ordered pain med per pt: Yes
preference::
Protocol:: Medication orders for pain may be administered in a
manner that supports deferring to patient preference
when the pt is:
- Requesting an ordered lesser potent pain medication.
Least to most potent pain medications are defined
as: acetaminophen < NSAID < tramadol < opioids
(morphine, oxycodone, hydromorphone).
- Requesting a lesser dose of the same medication IF
ORDERED.
- Requesting a less intrusive route of administration
if both routes are prescribed by the provider (PO <
IV).
10/15/24 16:42
Code Status As Directed
Resuscitation Status: Full Code
Abnormal Lab Results
10/15/24
13:13
RBC 4.16 L 10^6/uL
(4.20-5.40)
Hgb 11.6 L g/dL
(12.0-16.0)
Hct 33.6 L %
(37.0-47.0)
MCV 80.8 L fL
(81.0-99.0)
MPV 11.0 H fL
(7.4-10.4)
Absolute Monos (auto) 0.7 H 10^3/uL
(0.1-0.6)
Neutrophils % 39.5 L %
(42.2-75.2)
Eosinophils % 7.2 H %
(0-6)
10/15/24 13:13
10/15/24 13:13
Vital Signs
Initial and Last Documented VS:
Initial Vital Signs
Temp Pulse Resp BP Pulse Ox
99.1 F 148 18 129/72 98
10/15/24 11:14 10/15/24 11:14 10/15/24 11:14 10/15/24 11:14 10/15/24 11:14
Last Documented Vital Signs
Temp Pulse Resp BP Pulse Ox
99.1 F 75 18 100/63 99
10/15/24 11:14 10/15/24 14:00 10/15/24 14:00 10/15/24 15:00 10/15/24 15:45
MDM/Problems Addressed
MDM/Problems Addressed:
History and exam concerning for incompletely treated susana-dental infection. As such, patient will be admitted for IV antibiotics and further pain control.
Blood culture pending.
*Critical Care Note
Total Time (30-74mins, 75-104mins- exclusive of procedures): Not Applicable
ED Attending Note
-
Portions of this chart may have been created with voice recognition software.� Occasional wrong word or��sound alike� substitutions may have occurred due to the inherent limitations of voice recognition software.
Discharge Plan
Departure
Patient Disposition: Admit
Date of Disposition: 10/15/24
Time of Disposition: 15:56
Presentation/result/management discussed w/ accepting MD/DO: Hospitalist
Discharge Problem:
Dental infection
Interventions
Interventions:
*Risk Screen - Suicide Last Done: 10/15/24 11:14
*General Assessment Last Done: 10/15/24 11:14
*Neglect/Abuse Screening Last Done: 10/15/24 14:04
*ED COVID-19 Vaccine History Last Done: 10/15/24 11:14
ED- Neurological Assessment Last Done: 10/15/24 14:04
ED-Skin Assessment Last Done: 10/15/24 14:04
--- NOTE | 2024-10-15 16:00 | HPS.HSE ---
Family Physician
-
Family Physician: Nadege Dyson
Chief Complaint
-
dental pain, fever and chills
History of Present Illness
Patient is a 30-year-old female with past medical history significant for Crohn's disease, anxiety/depression, OCD and Celiac's disease who presented to [facility] ED for evaluation of dental pain, fever and chills. Patient with recent hospitalization
10/07/2024 - 10/10/2024 for recurrent dental infection complicated by facial cellulitis and s/p dental bone graft infection-removed 06/2024. Patient was discharged with continued Ertapenem outpatient and was completed 2 days ago. Off note patient
reports pustula type rash to abdomen on last 2 days of antibiotic treatment. Patient returned today for continued symptoms despite completion of antibiotics. Patient states she continues with fever, chills and nausea. She denies cough, shortness of
breath, or vomiting.
Medical History
Past Medical History
Past Medical History: Reports Other
Additional Past Medical History:
Apudoma of skin
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
Crohn's disease, unspecified, without complications
Obsessive-compulsive disorder
Mild episode of recurrent major depressive disorder
Crohn's disease
Mood disorder
Constipation
Rectal prolapse
Celiac disease
Palpitations
Abdominal pain
Gastrointestinal Crohn's disease
Chronic pain syndrome
major depressive disorder with psychotic features
Anxiety
Past Surgical History: Reports Other
Additional Past Surgical History:
recent oral surgery
See above
Social History
Tobacco: Non-smoker
Alcohol: None
Drug: None
Personal:
Living: With Family
Employment: Not Employed
Family History
Family History: Not pertinent
Allergies / Home Medications
Allergies reflects when Allergies were last updated in [employer].
Home Medications with original date entered in [employer]
Allergy/Medication List:
Allergies
Allergy/AdvReac Type Severity Reaction Status Date / Time
amoxicillin [From Augmentin] Allergy Intermediate Rash Verified 10/15/24 11:18
clavulanic acid Allergy Intermediate Rash Verified 10/15/24 11:18
[From Augmentin]
egg Allergy Anaphylaxis Verified 10/15/24 11:18
gluten Allergy stomach Verified 10/15/24 11:18
pain
prochlorperazine Allergy Akathesia Verified 10/15/24 11:18
shrimp Allergy Unknown Verified 10/15/24 11:18
tree nut Allergy Hives Verified 10/15/24 11:18
piperacillin [From Zosyn] AdvReac Severe Severe Verified 10/15/24 11:18
arthritic
pain
tazobactam [From Zosyn] AdvReac Severe Severe Verified 10/15/24 11:18
arthritic
pain
Quinolones AdvReac Mild Nausea Verified 10/15/24 11:18
doxycycline AdvReac Nausea / Verified 10/15/24 11:18
Vomiting
metronidazole AdvReac Nausea / Verified 10/15/24 11:18
Vomiting
Home Medications
oxycodone 10 mg tablet 10 mg PO QID@08,12,17,21 02/12/23
acetaminophen 500 mg tablet (Tylenol Extra Strength) 1,000 mg PO Q6HPRN PRN mild pain 01/15/24
ascorbic acid (vitamin C) 500 mg tablet (Vitamin C) 500 mg PO BID Supplement 01/15/24
clonazepam 1 mg tablet 1 mg PO BID@1130,2300 Mental Health/Anxiety 01/15/24
duloxetine 30 mg capsule,delayed release (Cymbalta) 30 mg PO DAILY@0800 mental health 01/15/24
duloxetine 60 mg capsule,delayed release (Cymbalta) 60 mg PO DAILY@0800 mental health 01/15/24
famotidine 20 mg tablet (Pepcid) 40 mg PO HS Gastrointestinal Issue 01/15/24
fexofenadine 180 mg tablet 360 mg PO HS Allergies 01/15/24
gabapentin 300 mg capsule 300 mg PO QID@08,,, Neurological Condition 01/15/24
hydroxyzine pamoate 25 mg capsule 25 mg PO QID@08,,, Mental Health/Anxiety 01/15/24
infliximab 100 mg intravenous solution (Remicade) 7.5 mg IV Q6W Crohn's disease 01/15/24
melatonin 10 mg tablet 10 mg PO HS@2300 Sleep 01/15/24
oxycodone 10 mg tablet,crush resistant,extended release 12 hr (OxyContin) 10 mg PO HS@2300 chronic pain 01/15/24
vitamin A 3,000 mcg (10,000 unit) capsule 3,000 mcg PO HS Supplement 02/26/24
hydromorphone 4 mg tablet 4 mg PO Q4HPRN PRN severe breakthrough pain 05/09/24
therapeutic multivitamin 1 tab PO HS Supplement 05/09/24
Lactobac no.2-Bifidobac no.1-S. thermo 112.5 billion cell capsule (Visbiome) 2 cap PO DAILY #30 caps 05/14/24
oxycodone 10 mg tablet 10 mg PO HSPRN PRN severe pain 05/26/24
docusate sodium 100 mg tablet 300 mg PO DAILYPRN PRN constipation 07/30/24
polyethylene glycol 3350 17 gram oral powder packet (Miralax) 17 g PO DAILYPRN PRN constipation 07/30/24
bisacodyl 5 mg tablet,delayed release (Dulcolax (bisacodyl)) 5 mg PO DAILYPRN PRN constipation 10/15/24
fexofenadine 180 mg tablet ([facility]) 360 mg PO HS Allergies 10/15/24
triamcinolone acetonide 0.1 % topical cream 1 applic topical BIDPRN PRN rash 10/15/24
Review of Systems
-
History Source: Patient
Constitutional: Reports Fever and Chills
EENT: Reports No Symptoms
Respiratory: Reports No Symptoms
Cardiac: Reports Chest Pain
Abdomen/GI: Reports Nausea
: Reports No Symptoms
Musculoskeletal: Reports No Symptoms
Skin: Reports No Symptoms
Neurological: Reports No Symptoms
Endocrine: Reports No Symptoms
Hematologic/Lymphatic: Reports No Symptoms
Psych: Reports No Symptoms
Physical Exam
Vital Signs
Vital Signs
Temp Pulse Resp BP Pulse Ox
99.1 F 75 18 100/63 99
10/15/24 11:14 10/15/24 14:00 10/15/24 14:00 10/15/24 15:00 10/15/24 15:45
Physical Exam
General: Well Developed, Well Nourished, No Apparent Distress and Comfortable
HEENT: NormoCephalic, Moist mucous membranes, Nose Appears Normal, Ears Appear Normal and Other (upper left tooth missing with small white area on gum )
Respiratory: Clear
Cardiac: S1/S2 and Regular Rhythm
Breast: Deferred by me
GI: Soft, Non Tender and Non Distended
Rectal: Deferred by Provider
Genito-urinary: Deferred by me
Musculoskeletal: No Clubbing, No Cyanosis and No Edema
Skin: Warm, Dry and Rash
Neuro: Awake, Alert, Oriented and AO x 3
Psych: Calm
Laboratory Results
-
10/15/24 13:13
10/15/24 13:13
Laboratory Results
Lactic Acid Cancelled 10/15/24 17:00
Total Bilirubin 0.6 mg/dl (0.2-1.3) 10/15/24 13:13
AST 34 U/L (14-36) 10/15/24 13:13
ALT 28 U/L (0-35) 10/15/24 13:13
Alkaline Phosphatase 112 U/L (38-126) 10/15/24 13:13
Data Reviewed
-
Diagnostic Radiology: Report Reviewed by me (CXR: Right PICC tip in the mid to distal third of superior vena cava. No pneumothorax. No acute cardiopulmonary process.)
Lab Data: Labs Reviewed by me
Impression/Plan
-
IMPRESSION/PLAN:
#dental infection
recent hospitalization 10/07/2024 - 10/10/2024 for recurrent dental infection complicated by facial cellulitis and s/p dental bone graft infection-removed 06/2024
discharged with Ertapenem completed 2 days ago out patient
Blood Cx: pending
- Admit to med/surg
- Consult ID
- pain regiment, continue outpatient pain meds with Dilaudid 1mg q3 PRN
- IV Ertapenem
#Crohn's disease
- continue Remicade out patient
#anxiety/depression
- continue clonazepam, Cymbalta and hydroxyzine
#OCD
#Celiac's disease
Code status: full code
DVT prophylaxis: Lovenox sq
--- NOTE | 2024-10-15 17:10 | W.PN.UPDATE ---
Update Note
Progress Note Update
This is an addendum to H&P written by Mary Kay Castellanos on 10/15/2024.� Patient seen and examined independently with JEWEL GRINDER.
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
infections complicated by facial cellulitis status post dental bone graft infection moved on 07/22, IBS, chronic pain, anxiety/depression presenting for upper tooth pain for 1 day, fevers and chills.
She was admitted from 10/07 to 10/10 for similar symptoms and was treated with IV ertapenem completed on 10/13.� She developed a pustular rash on her abdomen during the last few days of ertapenem which is now resolved.
CT facial bones from 10/07 showed minimal soft tissue stranding adjacent to the left mandible without fluid collection.
Patient with persistent odontogenic infection.� Check blood cultures.� Restart ertapenem.� IV fluids.� Pain control.� ID consulted.� She is scheduled to have another odontogenic procedure in the near future.
She is scheduled to see a Crohn's specialist regarding her joint pains in the near future.� There is plan to start methotrexate once her odontogenic infection resolves.
[2024-10-15] MEDS: INVANZ 60 MG IV (17:38)
[2024-10-15 18:39] VITALS: BMI 26.6
[2024-10-15 19:52] VITALS: BP 112/74; BMI 27.1
[2024-10-15] MEDS: ATARAX 25 MG PO (20:22)
[2024-10-15] MEDS: NEURONTIN 300 MG PO ×2 (20:22→23:43)
[2024-10-15] MEDS: LOVENOX 40 MG SC (20:22)
[2024-10-15] MEDS: VITAMIN C 500 MG PO (20:22)
[2024-10-15] MEDS: ROXICODONE 10 MG PO (21:30)
[2024-10-15] MEDS: PEPCID 40 MG PO (21:36)
[2024-10-15] MEDS: NON-FORMULARY ITEM 360 MG PO (21:36)
[2024-10-15 23:36] VITALS: BP 125/66
[2024-10-15] MEDS: OXYCONTIN (CONTROLLED RELEASE) 10 MG PO (23:43)
[2024-10-15] MEDS: KLONOPIN 1 MG PO (23:43)
[2024-10-15] MEDS: MELATONIN 10 MG PO (23:43)
[2024-10-16] MEDS: DILAUDID 1 MG IV ×5 (01:09→19:42)
[2024-10-16] MEDS: ROXICODONE 10 MG PO ×5 (02:54→21:10)
[2024-10-16 04:31] LABS: Hematocrit 33.2 % (37.0-47.0); Hemoglobin 11.2 g/dL (12.0-16.0); Mean Corp Hgb Conc. 33.7 g/dL (33.0-37.0); Mean Corpuscular Hgb 27.3 pg (27.0-31.0); Mean Platelet Volume 10.3 fL (7.4-10.4); Platelet Count 208 10^3/uL (130-400); White Blood Cell Count 8.3 10^3/uL (4.8-10.8)
[2024-10-16 07:32] VITALS: BP 96/64
[2024-10-16] MEDS: CYMBALTA DELAYED RELEASE 90 MG PO (08:13)
[2024-10-16] MEDS: VITAMIN C 500 MG PO ×2 (08:13→19:43)
[2024-10-16] MEDS: ATARAX 25 MG PO ×4 (08:13→22:30)
[2024-10-16] MEDS: VISBIOME 2 CAP PO (08:13)
[2024-10-16] MEDS: NEURONTIN 300 MG PO ×4 (08:13→22:30)
[2024-10-16] MEDS: KLONOPIN 1 MG PO ×2 (11:28→23:34)
--- NOTE | 2024-10-16 12:14 | CON.ID ---
Consultation
-
Date/Time Consultation Requested: 10/15/24 18:30
Date/Time Consultation Performed: 10/16/24
Requesting Provider: Jasmin NGUYEN
Performing Provider: Dr Morse
Reason for Consultation: dental infection
Chief Complaint / Past History
Chief Complaint
fevers and chills
History of Present Illness
Ms Olivia is a 29 year old female with history of Crohns disease on Remicade, enthesitis on chronic narcotics. She is known to ID service for a history of recurrent dental infection complicated by facial cellulitis. She had undergone a series of
dental procedures - most recently 4 weeks ago. She believes she lacerated her gum while eating, she has some tenderness, erythema and swelling of the gum with CT of the region done on 10/07 with mild facial swelling, she completed 1 week of
ertapenem on Friday 10/13. I last saw her 10/10 and at that time facial asymmetry was minimal. On 10/12 she felt that she was developing a pustular rash on the abdomen which today she shows me photos of - it is not hives, we discussed a switch to an
alternative which would have required either clindamycin or a quinolone/metrondiazole or doxycycline/metronidazole and she was not willing to take any of these medications. I recommended that she finish the planned 7 day course. She completed the
course then within the next 48 hours report subjective fever and shaking chills. She is accompanied by dad who confirms he saw chills. She also reports that her chronic enthesitis worsened and she also had relapse of pain over the maxilla.
Reports that enthesitis has been ongoing since Jun 2021 with ongoing diffuse, symmetric joint pain which is why she is on the opioids and eventually planned to start methotrexate.
Since arrival here this visit she has been afebrile, bp overall stable, wbc 7.5, hgb 11.6, plt 220, AEC 500 and 7.2%, cr 0.8, lactic acid 0.8, blood cultures x2 no growth to date, she was restarted on ertapenem.
Past History
Additional Past Medical History:
(Crohn's disease, celiac, IBS, anxiety), Other (Recurrent dental infections/facial cellulitis-PICC line in place.) and Other (Chronic pain syndrome-narcotic dependent)
Additional Past Surgical History:
bowel surgery
Allergy History:
amoxicillin [From Augmentin] Allergy (Intermediate, Verified 10/15/24 11:18)
Rash
clavulanic acid [From Augmentin] Allergy (Intermediate, Verified 10/15/24 11:18)
Rash
egg Allergy (Verified 10/15/24 11:18)
Anaphylaxis
gluten Allergy (Verified 10/15/24 11:18)
stomach pain
prochlorperazine Allergy (Verified 10/15/24 11:18)
Akathesia
shrimp Allergy (Verified 10/15/24 11:18)
Unknown
tree nut Allergy (Verified 10/15/24 11:18)
Hives
piperacillin [From Zosyn] Adverse Reaction (Severe, Verified 10/15/24 11:18)
Severe arthritic pain
tazobactam [From Zosyn] Adverse Reaction (Severe, Verified 10/15/24 11:18)
Severe arthritic pain
Quinolones Adverse Reaction (Mild, Verified 10/15/24 11:18)
Nausea
doxycycline Adverse Reaction (Verified 10/15/24 11:18)
Nausea / Vomiting
metronidazole Adverse Reaction (Verified 10/15/24 11:18)
Nausea / Vomiting
Medications Reviewed: Yes
Social History
Tobacco: Non-Smoker
Alcohol: Occasional
Drug: None
Family History
Family History: Not Pertinent
Review of Systems
Review of Systems
General: Fever and Chills
All systems: All other systems were reviewed and were negative
Vital Signs
Temp Pulse Resp BP Pulse Ox
98.4 F 95 16 96/64 98
10/16/24 07:32 10/16/24 07:32 10/16/24 07:32 10/16/24 07:32 10/16/24 07:50
Physical Exam
Physical Exam
Constitutional: No Acute Distress
Head: Other (very minimal facial asymmetry, minimal erythema of the maxilla surgical site, no dehiscence or drainage)
Cardiovascular: Regular Rate and S1/S2; Negative Murmur or Rub
Pulmonary: Clear and Symmetric; Negative Wheezes, Rales or Rhonchi
Gastrointestinal: Soft, Non Tender, Non Distended and Normal Bowel Sounds
Skin: Warm and Dry; Negative Rash or Jaundice
Lab / Diagnostic Study Results
10/16/24 04:04
10/15/24 13:13
Abs Immat Gran (auto) 0.0 10^3/uL (0-0.05) 10/15/24 13:13
Absolute Neuts (auto) 2.9 10^3/uL (1.4-6.5) 10/15/24 13:13
Absolute Lymphs (auto) 3.3 10^3/uL (1.2-3.4) 10/15/24 13:13
Absolute Monos (auto) 0.7 10^3/uL (0.1-0.6) H 10/15/24 13:13
Absolute Basos (auto) 0.0 10^3/uL (0-0.2) 10/15/24 13:13
Immature Gran % 0.1 % (0-0.5) 10/15/24 13:13
Neutrophils % 39.5 % (42.2-75.2) L 10/15/24 13:13
Lymphocytes % 43.8 % (20.5-51.1) 10/15/24 13:13
Monocytes % 9.0 % (1.7-9.3) 10/15/24 13:13
Eosinophils % 7.2 % (0-6) H 10/15/24 13:13
Basophils % 0.4 % (0-2) 10/15/24 13:13
Lactic Acid Cancelled 10/15/24 17:00
Microbiology Results
Micro:
10/15/24 13:28 Blood Culture - Pending
Blood/Venous
10/15/24 13:28 Blood Culture - Pending
Blood/Venous
Assessment / Plan
Possible recurrent odontogenic infection
Immunosuppression
Intolerance to multiple antibiotics
Household contact with prior C difficile, no personal h/o C difficile
- note mild findings of the soft tissues, not bone, on the last CT about 1 week ago
- exacerbation of chronic joint pains which patient correlates with zosyn not a definitive diagnosis of serum sickness
- rediscussed with patient that she reports possible adverse drug reactions to all available classes of antibiotics
penicillins: worsening of chronic joint pains
carbapenems: questionable drug rash, rash could be related to remicaide
cephalosporins/metronidazole: nausea vomiting
quinolones/metronidazole: nausea/vomiting - she described it as debilitating
clindamycin: psoriasis
doxycycline/metronidazole: nausea/vomiting
- I am not convinced that any of her reactions are life threatening, in this scenario and moving forward antibiotic selection will likely require management of ADRs. We reviewed that given her sum total of reported ADRs my recommedation is oral
clindamycin. She is not willing to try the oral formulation, however accepts the IV version. We will try the version inpatient and I will explore the stability of the drug for outpatient infusion. Tentatively for 2 further weeks.
- continue probiotics
--- NOTE | 2024-10-16 13:03 | W.PN.HOSP.TC ---
Today's Communication/Plan
-
Await further ID input
Blood cultures are in lab
Assessment / Plan
Assessment / Plan
Suspected Recurrent dental infection:
History of bone graft
Continue IV Ertapenem
Multiple antibiotic allergies to doxycycline, Flagyl, Zosyn, Augmentin
Blood cultures and lab lab
Recently finished outpatient IV antibiotic course
Of note patient with multiple hospitalization for IV antibiotics
Currently afebrile. White count normal. Blood pressure stable.
Underwent facial CT on 10/07 and noted.
Recent abdominal skin rash resolved
Will await further ID input
Crohn's disease:
Immunosuppressed state and has on Remicade infusions outpatient
Stable.
Monitor for now as with IV antibiotics
Chronic pain syndrome
Chronic opioid dependent on daily basis
On high dose of pain medications OxyContin 10 mg p.o. at nighttime and Oxycodone 10 mg p.o. 4 to 5 times a day and currently on IV Dilaudid for breakthrough pain
On bowel regimen
Follows with pain management as outpatient
Depression anxiety:
Continue Klonopin
Continue Cymbalta
DVT prophylaxis:
Lovenox SQ
CODE STATUS:
Full code
Discussed with family member at bedside
Anticipated Discharge: > 48 hours
Subjective/Interval History
-
Date of Service: October 16, 2024
states of finishing IV abx as outpatient
states of fever w/ temp of 99F
facial pain
did not receive her po meds yesterday
awaiting for ID to d/w her plan
Objective Data
-
Labs:
Laboratory Results
10/16/24
04:04
WBC 8.3
Hgb 11.2 L
Hct 33.2 L
Plt Count 208
Vital Signs:
Vital Signs
Temp Pulse Resp BP Pulse Ox
98.4 F 95 16 96/64 98
10/16/24 07:32 10/16/24 07:32 10/16/24 07:32 10/16/24 07:32 10/16/24 07:50
I&O
10/15/24 10/16/24 10/17/24
06:59 06:59 06:59
Intake Total 240 / 240
Balance 240 / 240
Physical Exam
-
General: Well Developed and No Apparent Distress
HEENT: Normocephalic, Atraumatic, Moist Mucous Membranes and Other (no severe erythema on face noted. Left upper internal lip w/mild swelling)
Respiratory: Clear to Auscultation
Cardiac: Regular Rhythm and S1/S2; Negative Murmur, Rub or Gallop
GI: Soft, Nontender, Nondistended and Normal Bowel Sounds; Negative Organomegaly
Rectal: Deferred by Provider
Musculoskeletal: No Clubbing, No Cyanosis, No Edema and Other (RUE PICC line noted )
Skin: Negative Rash
Neuro: Nonfocal/Grossly Intact
Data Reviewed
-
Total Time Spent with Patient (in minutes): 55
[2024-10-16 15:26] VITALS: BP 99/63
--- NOTE | 2024-10-16 16:13 | CM ---
Patient seen bedside, initial assessment completed. Recent admission (10/07-10/10). Patient is a 29-year-old female with past medical history significant for Crohn's disease, anxiety/depression, OCD and Celiac's disease who presented to [facility] ED for
evaluation of dental pain, fever and chills.
Patient resides w/ spouse in [facility] 3 steps to enter. Patient is independent w/ ambulating and ADLs, no DME identified. Patient does not drive. Patient is current w/ [facility] for IV abx infusions. No therapy or HC hx reported.
Address, points of contact and insurance verified
PCP: Nadege Dyson
Pharmacy: [facility]
ID following, script provided to complete dodge check and coverage for abx
Plan: Home; cont of IV abx through [facility]
[2024-10-16] MEDS: CLEOCIN 50 IV ×2 (16:21→23:34)
[2024-10-16] MEDS: LOVENOX 40 MG SC (18:17)
--- NOTE | 2024-10-16 19:18 | PTCARENOTE ---
Received patient this am AAOx3. Pt's anxious an tearful at times. Pt medicated with standing medications for pain an anxiety. Pt medicated with Dilaudid IV PRN for breakthrough pain with relief. Appetite fair. Pt OOB ambulating in room an hallway.
Made patient comfortable. Cont to assess patient status.
[2024-10-16] MEDS: NON-FORMULARY ITEM 360 MG PO (22:30)
[2024-10-16] MEDS: PEPCID 40 MG PO (22:30)
[2024-10-16] MEDS: OXYCONTIN (CONTROLLED RELEASE) 10 MG PO (23:34)
[2024-10-16] MEDS: MELATONIN 10 MG PO (23:35)
[2024-10-16 23:45] VITALS: BP 108/64
[2024-10-17] MEDS: DILAUDID 1 MG IV ×5 (00:12→22:27)
[2024-10-17] MEDS: ROXICODONE 10 MG PO ×5 (02:12→20:50)
[2024-10-17 05:52] LABS: Hematocrit 33.9 % (37.0-47.0); Hemoglobin 11.7 g/dL (12.0-16.0); Mean Corp Hgb Conc. 34.5 g/dL (33.0-37.0); Mean Corpuscular Hgb 27.7 pg (27.0-31.0); Mean Corpuscular Volume 80.1 fL (81.0-99.0); Mean Platelet Volume 11.1 fL (7.4-10.4); Platelet Count 231 10^3/uL (130-400); Red Blood Cell Count 4.23 10^6/uL (4.20-5.40); Red Cell Dist. Width 13.7 % (11.5-14.5); White Blood Cell Count 7.3 10^3/uL (4.8-10.8)
[2024-10-17 06:08] LABS: ALT (SGPT) 31 U/L (0-35); AST (SGOT) 37 U/L (14-36); Albumin 3.5 g/dl (3.5-5.0); Alkaline Phosphatase 88 U/L (38-126); Blood Urea Nitrogen 15 mg/dl (7-17); Calcium 8.8 mg/dl (8.4-10.2); Carbon Dioxide 29 mmol/L (22-30); Chloride 106 mmol/L (98-107); Estimated Creatinine Clearance 102 ml/min; Glucose 90 mg/dl (70-99); Potassium 4.4 mmol/L (3.5-5.1); Sodium 141 mmol/L (135-145); Total Bilirubin 0.7 mg/dl (0.2-1.3); Total Protein 6.7 g/dl (6.3-8.2); eGFR > 60.00
[2024-10-17 06:28] LABS: % Basophils 0.5 % (0-2); % Eosinophils 7.9 % (0-6); % Immature Granulocytes 0.3 % (0-0.5); % Lymphocytes 53.6 % (20.5-51.1); % Monocytes 8.2 % (1.7-9.3); % Neutrophils 29.5 % (42.2-75.2); Absolute Eosinophils 0.6 10^3/uL (0-0.7); Absolute Lymphocytes 3.9 10^3/uL (1.2-3.4); Absolute Monocytes 0.6 10^3/uL (0.1-0.6); Absolute Neutrophils 2.2 10^3/uL (1.4-6.5); Nucleated Red Blood Cells % 0 %
[2024-10-17 08:13] VITALS: BP 93/60
[2024-10-17] MEDS: VITAMIN C 500 MG PO ×2 (08:14→20:48)
[2024-10-17] MEDS: VISBIOME 2 CAP PO (08:14)
[2024-10-17] MEDS: CYMBALTA DELAYED RELEASE 90 MG PO (08:14)
[2024-10-17] MEDS: ATARAX 25 MG PO ×4 (08:19→22:24)
[2024-10-17] MEDS: NEURONTIN 300 MG PO ×4 (08:21→22:25)
--- NOTE | 2024-10-17 08:30 | VATNOTE ---
R PICC dressing changed w/ pt's supplies from home. Arm circumference 30.5, external length @ 1cm as is pt's normal. No biopatch per pt request due to sensitivity.
[2024-10-17] MEDS: CLEOCIN 50 IV ×3 (08:32→23:34)
[2024-10-17] MEDS: KLONOPIN 1 MG PO ×2 (11:22→23:32)
--- NOTE | 2024-10-17 12:40 | W.PN.ID1 ---
Date of Service
Date of Service: October 17, 2024
Today's Communication
c/w clindamycin
- if stable overnight can consider discharge tomorrow
Assessment / Plan
Possible recurrent odontogenic infection
Immunosuppression
Intolerance to multiple antibiotics
Household contact with prior C difficile, no personal h/o C difficile
- note mild findings of the soft tissues, not bone, on the last CT about 1 week ago
- exacerbation of chronic joint pains which patient correlates with zosyn not a definitive diagnosis of serum sickness
- rediscussed with patient that she reports possible adverse drug reactions to all available classes of antibiotics
penicillins: worsening of chronic joint pains
carbapenems: questionable drug rash, rash could be related to remicaide
cephalosporins/metronidazole: nausea vomiting
quinolones/metronidazole: nausea/vomiting - she described it as debilitating
clindamycin: psoriasis
doxycycline/metronidazole: nausea/vomiting
- I am not convinced that any of her reactions are life threatening, in this scenario and moving forward antibiotic selection will likely require management of ADRs. We reviewed that given her sum total of reported ADRs my recommedation is oral
clindamycin. She is not willing to try the oral formulation, however accepts the IV version. We will try the version inpatient and I will explore the stability of the drug for outpatient infusion. Tentatively for 2 further weeks.
- continue probiotics
- if stable overnight can consider discharge tomorrow
Chief Complaint
-: Other (odontogenic infection)
Subjective / Review of Systems
afebrile
bp intermittent mild hypotension on opiates
reports dental pain notably improved
folliculitis improving with topical triamcinolone
Vital Signs / Physical Exam
Vital Signs
Vital Signs
Temp Pulse Resp BP Pulse Ox
97.9 F 86 18 93/60 97
10/17/24 08:13 10/17/24 08:13 10/17/24 08:13 10/17/24 08:13 10/17/24 08:13
Physical Exam
Constitutional: No Acute Distress
Head: Other (maxillary surgical site fully healed, no further erythema)
Cardiovascular: Regular Rate and S1/S2; Negative Murmur or Rub
Pulmonary: Clear and Symmetric; Negative Wheezes or Rales
Gastrointestinal: Soft, Non Tender, Non Distended and Normal Bowel Sounds
Skin: Warm, Dry and Other (folliculitis improving with topical triamcinolone ); Negative Rash or Jaundice
Objective Data
Lab Data
Lab Results
10/17/24 05:26
10/17/24 05:26
Estimated Creat Clear 102 ml/min 10/17/24 05:26
Lactic Acid Cancelled 10/15/24 17:00
Total Bilirubin 0.7 mg/dl (0.2-1.3) 10/17/24 05:26
AST 37 U/L (14-36) H 10/17/24 05:26
ALT 31 U/L (0-35) 10/17/24 05:26
Alkaline Phosphatase 88 U/L (38-126) 10/17/24 05:26
Most recent labs reviewed.
Micro Results:
10/15/24 13:28 Blood Culture - Preliminary
Blood/Venous No Growth in 24 hours- Final report to follow
10/15/24 13:28 Blood Culture - Preliminary
Blood/Venous No Growth in 24 hours- Final report to follow
Care Review
Plan reviewed with: Physician (Dr Dunlap - andrew text - dispo)
--- NOTE | 2024-10-17 12:57 | W.PN.HOSP.TC ---
Today's Communication/Plan
-
await ID input
Bcx prelim negative
IV clinda
monitor ADR
Assessment / Plan
Assessment / Plan
#Suspected Recurrent dental infection:
#History of bone graft
s/p IV Ertapenem and now started on IV clindamycin.
Multiple antibiotic allergies to doxycycline, Flagyl, Zosyn, Augmentin
Blood cultures in lab and remains negative
Recently finished outpatient IV antibiotic course
Of note patient with multiple hospitalization for IV antibiotics
Currently afebrile. White count normal. Blood pressure stable.
Underwent facial CT on 10/07 and noted.
Recent abdominal skin rash resolved
ID following-tentative plan for 2 weeks of likely IV clindamycin.
Crohn's disease:
Immunosuppressed state and has on Remicade infusions outpatient
Stable.
Monitor for now as with IV antibiotics
Chronic pain syndrome
Chronic opioid dependent on daily basis
On high dose of pain medications OxyContin 10 mg p.o. at nighttime and Oxycodone 10 mg p.o. 4 to 5 times a day and currently on IV Dilaudid for breakthrough pain
On bowel regimen
Follows with pain management as outpatient
states overall joint pain has decrease in intensity. Ambulating.
Depression anxiety:
Continue Klonopin
Continue Cymbalta
DVT prophylaxis:
Lovenox SQ
CODE STATUS:
Full code
Discussed with family member at bedside
Dispo Home once IV antibiotics final plan confirmed.
Anticipated Discharge: 24 - 48 hours
Subjective/Interval History
-
Date of Service: October 17, 2024
states of less pain today on face and overall in joints too
states clindamycin po she does not want to take as worried about severe S/E due to her history of Croh/s disease
Objective Data
-
Labs:
Laboratory Results
10/17/24
05:26
WBC 7.3
Hgb 11.7 L
Hct 33.9 L
Plt Count 231
Sodium 141
Potassium 4.4
Chloride 106
Carbon Dioxide 29
BUN 15
Creatinine 0.8
Glucose 90
Calcium 8.8
Total Bilirubin 0.7
AST 37 H
ALT 31
Alkaline Phosphatase 88
Vital Signs:
Vital Signs
Temp Pulse Resp BP Pulse Ox
97.9 F 86 18 93/60 97
10/17/24 08:13 10/17/24 08:13 10/17/24 08:13 10/17/24 08:13 10/17/24 08:13
I&O
10/16/24 10/17/24 10/18/24
06:59 06:59 06:59
Intake Total 240 / 240 1130 / 1130
Balance 240 / 240 1130 / 1130
Physical Exam
-
General: Well Developed and No Apparent Distress
HEENT: Normocephalic, Atraumatic, Moist Mucous Membranes and Other (no severe erythema on face noted. Left upper internal lip w/mild swelling)
Respiratory: Clear to Auscultation
Cardiac: Regular Rhythm and S1/S2; Negative Murmur, Rub or Gallop
GI: Soft, Nontender, Nondistended and Normal Bowel Sounds; Negative Organomegaly
Rectal: Deferred by Provider
Musculoskeletal: No Clubbing, No Cyanosis, No Edema and Other (RUE PICC line noted )
Skin: Negative Rash
Neuro: Awake, AO x 3, No Motor Deficits and Nonfocal/Grossly Intact
Psych: Calm
--- NOTE | 2024-10-17 14:26 | CM ---
CM sent script to [facility] to review cost and insurance benefits.
Spoke w/ [facility] who stated patient's benefits were ran and [employer] and [employer] both popped up, encouraged patient to call insurances to confirm her primary. CM spoke w/ patient who stated she has spoken w/ [facility] at length already and will not
call [employer] as she already spoken w/ them. Patient shared she previously was receiving [employer] benefits but once she she terminated services in which a 3rd democrat was to communicate this w/ [employer], however, they did not and has been approving
transactions as a result. Patient stated her [employer] policy started on 09/26 and [facility] will need to follow up w/ [employer]. Patient stated [facility] already has her new insurance policy and should be billing that instead of [employer].
Followed up w/ [facility] again, they confirmed that they do have [employer] insurance info for patient. Per [facility], patient has to meet her $1,000 deductible which she may meet while in the hospital however it will depend on when patient gets
billed from both [facility] and [facility]. Without deductible being met, patient's out of pocket cost for abx will be $928.02/week, if patient's deductible is met, cost will be covered 80% and will be an estimate cost of $185/week. CM was told Oralia,
nurse liaison, will be updated on this and will determine the administration, if bedside teaching will be needed, etc.
Per hospitalist, patient can d/c tomorrow
Plan: Home w/ continuation of IV abx through [facility]
[2024-10-17 15:55] VITALS: BP 101/61
[2024-10-17] MEDS: LOVENOX 40 MG SC (18:10)
--- NOTE | 2024-10-17 21:45 | PTCARENOTE ---
Report called to 2N RN and patient transferred to 2120 with all belongings.
[2024-10-17] MEDS: NON-FORMULARY ITEM 360 MG PO (22:25)
[2024-10-17] MEDS: PEPCID 40 MG PO (22:25)
[2024-10-17 23:02] VITALS: BP 112/70
[2024-10-17] MEDS: OXYCONTIN (CONTROLLED RELEASE) 10 MG PO (23:32)
[2024-10-17] MEDS: MELATONIN 10 MG PO (23:34)
--- NOTE | 2024-10-17 23:43 | PTCARENOTE ---
Patient transferred to room 2120 via wheelchair. Patient ambulated self from wheelchair to bed - gait steady. AAOx3. VSS as documented. Assessment as documented. Patient oriented to room. Bed in lowest position. Call kimbrough within reach.
[2024-10-18] MEDS: ROXICODONE 10 MG PO ×4 (01:43→17:42)
[2024-10-18] MEDS: DILAUDID 1 MG IV ×4 (03:41→16:32)
[2024-10-18 05:27] LABS: Hematocrit 35.2 % (37.0-47.0); Mean Corp Hgb Conc. 34.1 g/dL (33.0-37.0); Mean Corpuscular Hgb 27.5 pg (27.0-31.0); Mean Corpuscular Volume 80.5 fL (81.0-99.0); Mean Platelet Volume 10.9 fL (7.4-10.4); Platelet Count 256 10^3/uL (130-400); Red Blood Cell Count 4.37 10^6/uL (4.20-5.40); Red Cell Dist. Width 13.8 % (11.5-14.5); White Blood Cell Count 8.1 10^3/uL (4.8-10.8)
[2024-10-18 05:46] LABS: ALT (SGPT) 32 U/L (0-35); AST (SGOT) 37 U/L (14-36); Albumin 3.6 g/dl (3.5-5.0); Alkaline Phosphatase 88 U/L (38-126); Blood Urea Nitrogen 16 mg/dl (7-17); Calcium 8.8 mg/dl (8.4-10.2); Carbon Dioxide 28 mmol/L (22-30); Chloride 103 mmol/L (98-107); Estimated Creatinine Clearance 102 ml/min; Glucose 103 mg/dl (70-99); Potassium 4.2 mmol/L (3.5-5.1); Sodium 140 mmol/L (135-145); Total Bilirubin 0.8 mg/dl (0.2-1.3); Total Protein 6.9 g/dl (6.3-8.2); eGFR > 60.00
[2024-10-18 07:40] VITALS: BP 97/61
[2024-10-18 07:51] LABS: % Basophils 0.6 % (0-2); % Eosinophils 9.3 % (0-6); % Immature Granulocytes 0.1 % (0-0.5); % Lymphocytes 54.7 % (20.5-51.1); % Monocytes 8.4 % (1.7-9.3); % Neutrophils 26.9 % (42.2-75.2); Absolute Basophils 0.1 10^3/uL (0-0.2); Absolute Eosinophils 0.8 10^3/uL (0-0.7); Absolute Lymphocytes 4.5 10^3/uL (1.2-3.4); Absolute Monocytes 0.7 10^3/uL (0.1-0.6); Absolute Neutrophils 2.2 10^3/uL (1.4-6.5); Nucleated Red Blood Cells % 0 %
[2024-10-18] MEDS: VITAMIN C 500 MG PO (08:09)
[2024-10-18] MEDS: VISBIOME 2 CAP PO (08:09)
[2024-10-18] MEDS: CYMBALTA DELAYED RELEASE 90 MG PO (08:09)
[2024-10-18] MEDS: CLEOCIN 50 IV ×2 (08:10→15:15)
[2024-10-18] MEDS: ATARAX 25 MG PO ×3 (08:12→17:42)
[2024-10-18] MEDS: NEURONTIN 300 MG PO ×3 (08:12→17:42)
--- NOTE | 2024-10-18 10:52 | CM ---
Addendum entered by Laurence Coppola 10/18/24 12:24:
Spoke with Oralia from [facility]
Can deliver med/supplies this PM; Requesting pt be given antibiotic at 3PM before discharging
Notified RN and hospitalist
Original Note:
Chart reviewed; met with pt
LM with Oralia from [facility] for update regarding services
Pt updated at bedside - reports has not heard from [facility] today
Will have transport when d/c'ed
Plan - home with [facility] when services confirmed
f - [phone]
--- NOTE | 2024-10-18 11:03 | W.PN.HOSP.TC ---
Today's Communication/Plan
-
Await IV antibiotics set up completion
Assessment / Plan
Assessment / Plan
#Suspected Recurrent dental infection:
#History of bone graft
s/p IV Ertapenem and now started on IV clindamycin.
Multiple antibiotic allergies to doxycycline, Flagyl, Zosyn, Augmentin
Blood cultures in lab and remains negative
Recently finished outpatient IV antibiotic course
Of note patient with multiple hospitalization for IV antibiotics
Currently afebrile. White count normal. Blood pressure stable.
Underwent facial CT on 10/07 and noted.
Recent abdominal skin rash resolved
ID following-tentative plan for 2 weeks of likely IV clindamycin.
Crohn's disease:
Immunosuppressed state and has on Remicade infusions outpatient
Stable.
have formed soft bm.
Monitor for now as with IV antibiotics
Chronic pain syndrome
Chronic opioid dependent on daily basis
On high dose of pain medications OxyContin 10 mg p.o. at nighttime and Oxycodone 10 mg p.o. 4 to 5 times a day and currently on IV Dilaudid for breakthrough pain
On bowel regimen
Follows with pain management as outpatient
states overall joint pain has decrease in intensity. Ambulating.
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
Depression anxiety:
Continue Klonopin
Continue Cymbalta
DVT prophylaxis:
Lovenox SQ
CODE STATUS:
Full code
Discussed with family member at bedside
Dispo Home once IV antibiotics set up completed. Case management aware.
Anticipated Discharge: Today
Subjective/Interval History
-
Date of Service: October 18, 2024
moved to 2N
remains afebrile
Objective Data
-
Labs:
Laboratory Results
10/18/24
04:45
WBC 8.1
Hgb 12.0
Hct 35.2 L
Plt Count 256
Sodium 140
Potassium 4.2
Chloride 103
Carbon Dioxide 28
BUN 16
Creatinine 0.8
Glucose 103 H
Calcium 8.8
Total Bilirubin 0.8
AST 37 H
ALT 32
Alkaline Phosphatase 88
Vital Signs:
Vital Signs
Temp Pulse Resp BP Pulse Ox
98.3 F 99 18 97/61 100
10/18/24 07:40 10/18/24 07:40 10/18/24 07:40 10/18/24 07:40 10/18/24 10:04
I&O
10/17/24 10/18/24 10/19/24
06:59 06:59 06:59
Intake Total 1130 / 1130 1580 / 1580
Balance 1130 / 1130 1580 / 1580
Physical Exam
-
General: Well Developed and No Apparent Distress
HEENT: Normocephalic, Atraumatic, Moist Mucous Membranes and Other (no severe erythema on face noted. Left upper internal lip w/improvement in swelling)
Respiratory: Clear to Auscultation
Cardiac: Regular Rhythm and S1/S2; Negative Murmur, Rub or Gallop
GI: Soft, Nontender, Nondistended and Normal Bowel Sounds; Negative Organomegaly
Rectal: Deferred by Provider
Musculoskeletal: No Clubbing, No Cyanosis, No Edema and Other (RUE PICC line noted )
Skin: Negative Rash
Neuro: Awake, AO x 3, No Motor Deficits and Nonfocal/Grossly Intact
Psych: Calm
[2024-10-18] MEDS: KLONOPIN 1 MG PO (12:02)
--- NOTE | 2024-10-18 12:21 | W.DCSUMMARY ---
Discharge Summary
Discharge Data
Date of Admission: 10/15/24
Date of Discharge: 10/18/24
-
Pending Results: No
Hospital Course
29-year-old female past medical history of dental infection, bone graft, chronic pain syndrome, chronic opioid dependent on daily basis, immunosuppressant state, depression, anxiety, presenting from home with concern for repeat dental infection.
Patient had recent CT scan done 03/09 and was noted. Patient has outpatient was on IV ertapenem which was continued until infectious disease evaluation. Patient blood cultures were negative. White count was normal. Patient was afebrile. Of note
patient with multiple hospitalization for IV antibiotics as stated of insensitivity to multiple antibiotics. Per infectious disease can trial patient with IV clindamycin. Patient refused to go on p.o. clindamycin as she was concerned about loose
bowel movements and Crohn's flareup. Patient already had a PICC line. Patient be discharged on IV clindamycin with 2 weeks with outpatient infectious disease follow-up. Patient was also recommended to follow-up with her primary pain management
specialist for further pain medication adjustment.
Discharge Plan
-
Patient Disposition: Home with Home Care
Discharge Diagnosis/Procedures: Suspected Recurrent dental infection
Immunosuppressant
Intolerance to multiple antibiotics
Condition: Fair
Diet: As tolerated
Activity: As tolerated
Driving Restrictions: No driving for 24 hours
Referrals:
Nadege Dyson PA [Family Provider] - in less than 1 week
Marli Morse MD [Active] - None
Prescriptions:
New
clindamycin in 5 % dextrose 600 mg/50 mL Piggyback
600 mg IV Q8H 14 Days Qty: 42 0RF
Continued
oxycodone 10 mg Tablet
10 mg PO QID@08,12,17,21
clonazepam 1 mg Tablet
1 mg PO BID@1130,2300
fexofenadine 180 mg Tablet
360 mg PO HS
Patient Comments:
patient will provide
acetaminophen [Tylenol Extra Strength] 500 mg Tablet
1,000 mg PO Q6HPRN PRN (Reason: mild pain)
famotidine [Pepcid] 20 mg Tablet
40 mg PO HS
ascorbic acid (vitamin C) [Vitamin C] 500 mg Tablet
500 mg PO BID
infliximab [Remicade] 100 mg Recon Soln
7.5 mg IV Q6W
Rx Instructions:
7.5 mg/kg
gabapentin 300 mg Capsule
300 mg PO QID@,,18,
hydroxyzine pamoate 25 mg capsule
25 mg PO QID@,,,
duloxetine [Cymbalta] 30 mg Capsule,Delayed Release(Dr/Ec)
30 mg PO DAILY@0800
Rx Instructions:
take with 60mg
duloxetine [Cymbalta] 60 mg Capsule,Delayed Release(Dr/Ec)
60 mg PO DAILY@0800
Rx Instructions:
take with 30mg
melatonin 10 mg Tablet
10 mg PO HS@2300
oxycodone [OxyContin] 10 mg Tablet,Oral Only,Ext.Rel.12 Hr
10 mg PO HS@2300
vitamin A 3,000 mcg (10,000 unit) Capsule
3,000 mcg PO HS
therapeutic multivitamin Tablet
1 tab PO HS
hydromorphone 4 mg Tablet
4 mg PO Q4HPRN PRN (Reason: severe breakthrough pain)
Visbiome 112.5 billion cell capsule
2 cap PO DAILY Qty: 30 0RF
oxycodone 10 mg Tablet
10 mg PO HSPRN PRN (Reason: severe pain)
polyethylene glycol 3350 [Miralax] 17 gram Powder In Packet
17 g PO DAILYPRN PRN (Reason: constipation)
docusate sodium 100 mg Tablet
300 mg PO DAILYPRN PRN (Reason: constipation)
triamcinolone acetonide 0.1 % cream
1 applic TOPICAL BIDPRN PRN (Reason: rash)
Rx Instructions:
trunk
bisacodyl [Dulcolax (bisacodyl)] 5 mg Tablet,Delayed Release (Dr/Ec)
5 mg PO DAILYPRN PRN (Reason: constipation)
fexofenadine [Darline Allergy] 180 mg Tablet
360 mg PO HS
Patient Comments:
patient states, 'as per my numerical control operator, I take 360mg every day at 2100'.
Discharge Orders:
Discharge Patient (As Directed); Ordered 10/18/24
Ordered By: Maciej Dunlap
Discharge Date and Time
Print Language: VIET[place]ESE
--- NOTE | 2024-10-18 12:58 | W.PN.ID1 ---
Date of Service
Date of Service: October 18, 2024
Today's Communication
- continue clindamycin which she is tolerating - plan two week course
- can proceed with outpatient dental procedure as planned from ID perspective
- probiotics/probiotic foods
- stable for dc when home IV antibiotics are arranged
Assessment / Plan
Possible recurrent odontogenic infection
Immunosuppression
Intolerance to multiple antibiotics
Household contact with prior C difficile, no personal h/o C difficile
- continue clindamycin which she is tolerating - plan two week course
- can proceed with outpatient dental procedure as planned from ID perspective, she will be one effective perioperative antibiotics with clindamycin
- probiotics/probiotic foods
- stable for dc when home IV antibiotics are arranged
- patient asks about perioperative antibiotic recommendations for possible upcoming intraabdominal/ procedure; my recommendation would be unasyn 3 gm iv x6 hours x4 doses or ertapenem 1 gm IV once. The arthritic pain she describes with zosyn is
unlikely to be serum sickness given the overall context. I am available to discuss with her surgeons PRN.
Chief Complaint
-: Other (odontogenic infection)
Subjective / Review of Systems
afebrile
bp overall stable
tolerating current therapies
Vital Signs / Physical Exam
Vital Signs
Vital Signs
Temp Pulse Resp BP Pulse Ox
98.3 F 99 18 97/61 100
10/18/24 07:40 10/18/24 07:40 10/18/24 07:40 10/18/24 07:40 10/18/24 10:04
Physical Exam
Constitutional: No Acute Distress and Chronically Ill
Cardiovascular: Regular Rate and S1/S2; Negative Murmur or Rub
Pulmonary: Clear and Symmetric; Negative Wheezes or Rales
Gastrointestinal: Soft, Non Tender, Non Distended and Normal Bowel Sounds
Skin: Warm and Dry; Negative Rash or Jaundice
Objective Data
Lab Data
Lab Results
10/18/24 04:45
10/18/24 04:45
Estimated Creat Clear 102 ml/min 10/18/24 04:45
Lactic Acid Cancelled 10/15/24 17:00
Total Bilirubin 0.8 mg/dl (0.2-1.3) 10/18/24 04:45
AST 37 U/L (14-36) H 10/18/24 04:45
ALT 32 U/L (0-35) 10/18/24 04:45
Alkaline Phosphatase 88 U/L (38-126) 10/18/24 04:45
Most recent labs reviewed.
Micro Results:
10/15/24 13:28 Blood Culture - Preliminary
Blood/Venous No Growth in 48 hours- Final report to follow
10/15/24 13:28 Blood Culture - Preliminary
Blood/Venous No Growth in 48 hours- Final report to follow
[2024-10-18 15:33] VITALS: BP 100/67
--- NOTE | 2024-10-18 18:18 | PTCARENOTE ---
Patient discharged home with R PICC in place for IV abx, patient states abx being delivered to home at 1900. Vitals taken by tech stable, patient gathered belongings in room independently. Patient verbalizes understanding of medications and
discharge instructions. Patient taken down to spouse's car at [facility] via staff escort and wheelchair.
== END 2024-10-18 18:41 | disposition home health service (06) | DRG 158 ==
LOC: 2 NORTH 16:52
PROVIDERS: Nurse Practitioner Family; ADMITTING PHYSICIAN Hospitalist; ATTENDING PHYSICIAN Hospitalist; CONSULT PHYSICIAN Internal Medicine Infectious Disease; EMERGENCY PHYSICIAN Emergency Medicine; FAMILY PHYSICIAN Physician Assistant Medical
DX: K04.7 Periapical abscess without sinus (principal); F11.20 Opioid dependence, uncomplicated; K50.90 Crohn's disease, unspecified, without complications; G89.4 Chronic pain syndrome
CPT/HCPCS: 71045; 80053; 83605; 85025; 85027; 87040; 96361; 96374; 96376; 99285; J1335

== ENCOUNTER 2024-10-23 21:18 | Inpatient (IN) | payer BC, SELFPAY ==
[2024-10-23] VITALS (8 sets, daily range): BP systolic 102–125; BP diastolic 62–87; BMI 27.9
[2024-10-23 16:40] LABS: ALT (SGPT) 33 U/L (0-35); AST (SGOT) 39 U/L (14-36); Albumin 3.8 g/dl (3.5-5.0); Alkaline Phosphatase 88 U/L (38-126); Blood Urea Nitrogen 7 mg/dl (7-17); Calcium 9.2 mg/dl (8.4-10.2); Carbon Dioxide 29 mmol/L (22-30); Chloride 103 mmol/L (98-107); Glucose 101 mg/dl (70-99); Potassium 4.2 mmol/L (3.5-5.1); Sodium 141 mmol/L (135-145); Total Bilirubin 0.6 mg/dl (0.2-1.3); Total Protein 7.5 g/dl (6.3-8.2); eGFR > 60.00
[2024-10-23 16:40] LABS: Lactic Acid 2.2 mmol/L (0.7-2.0)
[2024-10-23 16:41] LABS: Lactic Acid 2.3 mmol/L (0.7-2.0)
[2024-10-23 16:49] LABS: % Basophils 0.7 % (0-2); % Eosinophils 11.6 % (0-6); % Immature Granulocytes 0.1 % (0-0.5); % Monocytes 7.7 % (1.7-9.3); % Neutrophils 32.9 % (42.2-75.2); Absolute Basophils 0.1 10^3/uL (0-0.2); Absolute Eosinophils 0.8 10^3/uL (0-0.7); Absolute Lymphocytes 3.2 10^3/uL (1.2-3.4); Absolute Monocytes 0.5 10^3/uL (0.1-0.6); Absolute Neutrophils 2.3 10^3/uL (1.4-6.5); Hematocrit 37.8 % (37.0-47.0); Hemoglobin 12.8 g/dL (12.0-16.0); Mean Corp Hgb Conc. 33.9 g/dL (33.0-37.0); Mean Corpuscular Hgb 27.6 pg (27.0-31.0); Mean Corpuscular Volume 81.5 fL (81.0-99.0); Mean Platelet Volume 10.9 fL (7.4-10.4); Nucleated Red Blood Cells % 0 %; Platelet Count 289 10^3/uL (130-400); Red Blood Cell Count 4.64 10^6/uL (4.20-5.40); Red Cell Dist. Width 14.6 % (11.5-14.5); White Blood Cell Count 6.9 10^3/uL (4.8-10.8)
--- NOTE | 2024-10-23 19:18 | ED.GENMED ---
History of Present Illness
General
Chief Complaint: Catheter/Tube Problem
Source: patient
Exam Limitations: none
Time Seen by Provider: 10/23/24 18:42
Nursing documentation reviewed up to this point in time: agreed with
History of Present Illness
History of Present Illness:
29-year-old female presents to the emergency department due to chills, and a infected right PICC. The PICC has been in place for with the patient states as 84 days. She is receiving clindamycin for her dental infection associated with chronic
immunosuppression on Remicade.
Past History
Past History
ED Past Medical History: Other (Crohn's disease, celiac, IBS, anxiety), Other (Recurrent dental infections/facial cellulitis-PICC line in place. She is scheduled) and Other (Chronic pain syndrome-narcotic dependent)
ED Past Surgical History: Orthopedic and Other (Bowel surgery)
Social History
Tobacco: Non-smoker
Alcohol: Occasional
Drug: None
Personal: Single (Engage)
Living: with family
Employment: Not employed
Family History
Family History: Other (her dads mother had Juvenile RA, mother has palpitations)
Review of Systems
Review of Systems
Allergies reviewed?: Yes
All Other Systems: Not applicable
Constitutional: Reports chills
EENT: Reports no symptoms
Respiratory: Reports no symptoms
Cardiac: Reports no symptoms
ABD/GI: Reports no symptoms
: Reports no symptoms
Musculoskeletal: Reports no symptoms
Skin: Reports no symptoms
Neurological: Reports no symptoms
Endocrine: Reports no symptoms
Hematologic/Lymphatic: Reports no symptoms
Psychiatric: Reports no symptoms
Phy Exam
Physical Exam
Physical Exam:
Physical Exam
General: no apparent distress, not acutely ill
Neck: supple. no meningeal signs. normal posterior pharynx
Heart: s1/s2 regular rate and rhythm, no murmur. equal radial
pulses.
HEENT: Pupils equal round reactive to light, EOMI
Lungs: no acute respiratory distress. clear bilaterally
Abdomen: normal bowel sounds. not tender. no CVAT
Neuro: alert and oriented. no focal neurological deficits cranial nerves II through XII intact
Skin: erythema right picc
Psychiatric: well kept. interactive and cooperative
Extremities: no edema. no calf tenderness. negative homans. good distal pulses
Course
Orders/Labs/Results
Orders:
Orders
10/23/24 16:17
Comprehensive Metabolic Panel Urgent
10/23/24 16:18
Lactic Acid Q4H
Comment: ON ICE, CANCEL 2ND ORDER IF FIRST LACTIC ACID LEVEL <2
10/23/24 16:19
Complete Blood Count/With Diff Urgent
Lactic Acid Q4H
Comment: ON ICE, CANCEL 2ND ORDER IF FIRST LACTIC ACID LEVEL <2
Blood Culture Q20M
DESIRE Source: Blood/Venous
Specimen Description:
Comment: Urgent from separate sites. If patient screens positive for possible sepsis
Blood Culture Q20M
DESIRE Source: Blood/Venous
Specimen Description:
Comment: Urgent from separate sites. If patient screens positive for possible sepsis
10/23/24 19:13
IV Insert/Care/Rem.- Treatment PRN
10/23/24 19:18
Oxycodone [Roxicodone] 10 mg PO NOW STA
10/23/24 19:58
Tip Culture [Patient Line Culture] Urgent
DESIRE Source: Picc
Specimen Description:
Date Specimen was Collected: 10/23/24
Time Specimen was Collected: 19:56
10/23/24 20:29
Clindamycin 600 mg/50 ml [Cleocin] 600 mg in 50 ml IV NOW
10/23/24 20:30
Vancomycin [Vancocin] 2,000 mg 0.9% Sodium Chloride 500 ml [Nss] 500 ml IV NOW
10/23/24 20:45
Lactated Ringers [Lr] 1,000 ml IV BOLUS
10/23/24 21:01
Admit/Transfer Patient As Directed
Co-Sign Provider:
Level of Care: Inpatient admission
Assign to:: Medical/Surgical
Physician / Group: Warren Miller
Diagnosis: Sepsis, PICC line infection
Reason for Hospitalization: Sepsis, PICC line infection
Expected length of stay greater than two midnights?: Yes
ELOS- Estimated Length of Stay in days: 2
I certify the patient meets the requirements for IP care: Yes
HYDROmorphone [Dilaudid] 4 mg PO NOW STA
PRN Pain Medication Management As Directed
May give lesser potent ordered pain med per pt: Yes
preference::
Protocol:: Medication orders for pain may be administered in a
manner that supports deferring to patient preference
when the pt is:
- Requesting an ordered lesser potent pain medication.
Least to most potent pain medications are defined
as: acetaminophen < NSAID < tramadol < opioids
(morphine, oxycodone, hydromorphone).
- Requesting a lesser dose of the same medication IF
ORDERED.
- Requesting a less intrusive route of administration
if both routes are prescribed by the provider (PO <
IV).
10/23/24 21:04
Code Status As Directed
Resuscitation Status: Full Code
10/23/24 22:19
Acetaminophen [Tylenol] 1,000 mg PO Q6HPRN PRN
Clindamycin 600 mg/50 ml [Cleocin] 600 mg in 50 ml IV Q6H
Famotidine [Pepcid] 40 mg PO HS
Gabapentin [Neurontin] 300 mg PO QID@08,13,18,22
HYDROmorphone [Dilaudid] 4 mg PO Q4HPRN PRN
Lactated Ringers [Lr] 1,000 ml IV 100 mls/hr
Multivitamin [Theragran] 1 tablet PO HS
Oxycodone [Roxicodone] 10 mg PO HSPRN PRN
VANCOMYCIN Pharmacy to Dose [VANCOCIN Pharmacy to Dose] 1 each Pharmacy To Prepare [Call Pharmacy To Prepare] 0 ml IV PER PROTOCOL
fexofenadine 360 mg PO HS
hydroxyzine pamoate 25 mg PO QID@08,,18,22
vitamin A 3,000 mcg PO HS
10/23/24 22:19
INFECTIOUS DISEASE CONSULT Routine
Consulting Provider: Shelia Wall
Was physician already notified: Yes
Activity As Directed
Activity Level: Ambulate
Vital Signs As Directed
Frequency: Per unit guidelines
Weight As Directed
Frequency: Once
Comment: on admission
DX Deep Vein Thrombosis Video Routine
10/23/24 23:00
Clonazepam [Klonopin] 1 mg PO BID@1130,2300
Oxycodone Controlled Release [Oxycontin (Controlled Release)] 10 mg PO HS@2300
melatonin 10 mg PO HS@2300
10/24/24 06:00
Basic Metabolic Panel IN AM
Complete Blood Count/No Diff IN AM
10/24/24 08:00
Ascorbic Acid [Vitamin C] 500 mg PO BID
Duloxetine Delayed Release [Cymbalta Delayed Release] 30 mg PO DAILY@0800
Duloxetine Delayed Release [Cymbalta Delayed Release] 60 mg PO DAILY@0800
Lactobac/Bifidobac [Visbiome] 2 cap PO DAILY
Oxycodone [Roxicodone] 10 mg PO QID@08,12,17,21
10/24/24 18:00
Enoxaparin Sodium [Lovenox] 40 mg SC QPM
Abnormal Lab Results
10/23/24 10/23/24 10/23/24
16:17 16:18 16:19
RDW 14.6 H %
(11.5-14.5)
MPV 10.9 H fL
(7.4-10.4)
Absolute Eos (auto) 0.8 H 10^3/uL
(0-0.7)
Neutrophils % 32.9 L %
(42.2-75.2)
Eosinophils % 11.6 H %
(0-6)
Glucose 101 H mg/dl
(70-99)
Lactic Acid 2.3 H mmol/L 2.2 H mmol/L
(0.7-2.0) (0.7-2.0)
AST 39 H U/L
(14-36)
10/23/24 16:19
10/23/24 16:17
Vital Signs
Initial and Last Documented VS:
Initial Vital Signs
Temp Pulse Resp BP Pulse Ox
99.3 F 147 20 113/78 98
10/23/24 16:05 10/23/24 16:05 10/23/24 16:05 10/23/24 16:05 10/23/24 16:05
Last Documented Vital Signs
Temp Pulse Resp BP Pulse Ox
98.5 F 90 20 125/65 99
10/23/24 21:27 10/23/24 21:27 10/23/24 16:05 10/23/24 22:00 10/23/24 22:00
MDM/Problems Addressed
Differential Diagnosis Includes:
PICC infection, sepsis
MDM/Problems Addressed:
29-year-old female with PICC infection, odontogenic infection. Discussed with infectious disease, recommend clindamycin and vancomycin. PICC removed and cultured.
Chronic conditions affecting care: Other (Crohn's, celiac)
Acute Exacerbation and/or Progression of Chronic Illness: Other (Crohn's)
*Pulse Oximetry
Patient hypoxic: no
*Critical Care Note
Total Time (30-74mins, 75-104mins- exclusive of procedures): Not Applicable
Data Reviewed
Review of Other/Old Records Reveals: Progress Notes (Progress Notes from infectious disease revealed patient tried on clindamycin for odontogenic infection)
Source: records
Patient Management
Social determinants of health affecting care: Living situation and Strong social support
Discussion with other providers: Hospitalist
Escalation/DeEscalation of care consider admission/obs:
Admit indicated
Update Note
Update Note:
Patient repeatedly requesting IV Dilaudid. Will continue patient's p.o. Dilaudid. No indication for IV Dilaudid at this time.
ED Attending Note
-
Portions of this chart may have been created with voice recognition software.� Occasional wrong word or��sound alike� substitutions may have occurred due to the inherent limitations of voice recognition software.
Discharge Plan
Departure
Patient Disposition: Admit
Date of Disposition: 10/23/24
Time of Disposition: 19:25
Admit to: Med/Surg
Presentation/result/management discussed w/ accepting MD/DO: Hospitalist
Patient with high blood pressure during this ER visit?: No
Condition: Fair
Discharge Problem:
Dental infection, Infection due to PICC (peripherally inserted central catheter)
Interventions
Interventions:
*Risk Screen - Suicide Last Done: 10/23/24 16:05
*General Assessment Last Done: 10/23/24 16:05
*Neglect/Abuse Screening Last Done: 10/23/24 16:05
*ED- Fall Risk Assessment Last Done: 10/23/24 18:55
*ED COVID-19 Vaccine History Last Done: 10/23/24 18:55
*Nursing Disposition Last Done: 10/23/24 22:15
WW-Hogugv-Ewyalnrbcn Assessment Last Done: 10/23/24 18:55
ED-Female Genitourinary Assessment Last Done: 10/23/24 18:55
Discharge Date and Time
Discharge Date/Time: 10/23/24 22:16
--- NOTE | 2024-10-23 20:31 | HPS.HSE ---
Family Physician
-
Family Physician: Nadege Dyson
Chief Complaint
-
chills and infected right PICC
History of Present Illness
Patient is a 30-year-old female with past medical history significant for Crohn's disease, anxiety/depression, OCD and Celiac's disease who presented to [facility] ED for evaluation of chills and infected right PICC. Patient with recent hospitalizations
10/07/2024 - 10/10/2024 for recurrent dental infection complicated by facial cellulitis and s/p dental bone graft infection-removed 06/2024 and 10/15/2024-10/18/2024 for recurrent dental infection and ID consult. Patient was discharged with IV
Clindamycin outpatient as recommended by ID. Patient arrived today with assumed PICC line infection, pain, erythema and edema at insertion site. ED pulled PICC line and sent for culture. Patient reports low grade temp 99.3 at home with rigors.
Called her [employer] with symptoms and picture of site and they recommended evaluation in ED. Patient also states she has been having loose stools.
Medical History
Past Medical History
Past Medical History: Reports Other
Additional Past Medical History:
Apudoma of skin
halfway (current) use of opiate analgesic
Crohn's disease, unspecified, without complications
Obsessive-compulsive disorder
Mild episode of recurrent major depressive disorder
Crohn's disease
Mood disorder
Constipation
Rectal prolapse
Celiac disease
Palpitations
Abdominal pain
Gastrointestinal Crohn's disease
Chronic pain syndrome
major depressive disorder with psychotic features
Anxiety
Past Surgical History: Reports Other
Additional Past Surgical History:
recent oral surgery
See above
Social History
Tobacco: Non-smoker
Alcohol: None
Drug: None
Personal:
Living: With Family
Employment: Not Employed
Family History
Family History: Not pertinent
Allergies / Home Medications
Allergies reflects when Allergies were last updated in [facility].
Home Medications with original date entered in [facility]
Allergy/Medication List:
Allergies
Allergy/AdvReac Type Severity Reaction Status Date / Time
amoxicillin [From Augmentin] Allergy Intermediate Rash Verified 10/23/24 16:05
clavulanic acid Allergy Intermediate Rash Verified 10/23/24 16:05
[From Augmentin]
egg Allergy Anaphylaxis Verified 10/23/24 16:05
gluten Allergy stomach Verified 10/23/24 16:05
pain
prochlorperazine Allergy Akathesia Verified 10/23/24 16:05
shrimp Allergy Unknown Verified 10/23/24 16:05
tree nut Allergy Hives Verified 10/23/24 16:05
piperacillin [From Zosyn] AdvReac Intermediate exacberation Verified 10/23/24 16:05
of chronic
arthritic
pain
tazobactam [From Zosyn] AdvReac Intermediate exacberation Verified 10/23/24 16:05
of chronic
arthritic
pain
Quinolones AdvReac Mild Nausea Verified 10/23/24 16:05
doxycycline AdvReac Nausea / Verified 10/23/24 16:05
Vomiting
metronidazole AdvReac Nausea / Verified 10/23/24 16:05
Vomiting
Home Medications
oxycodone 10 mg tablet 10 mg PO QID@08,12,17,21 02/12/23
acetaminophen 500 mg tablet (Tylenol Extra Strength) 1,000 mg PO Q6HPRN PRN mild pain 01/15/24
ascorbic acid (vitamin C) 500 mg tablet (Vitamin C) 500 mg PO BID Supplement 01/15/24
clonazepam 1 mg tablet 1 mg PO BID@1130,2300 Mental Health/Anxiety 01/15/24
duloxetine 30 mg capsule,delayed release (Cymbalta) 30 mg PO DAILY@0800 mental health 01/15/24
duloxetine 60 mg capsule,delayed release (Cymbalta) 60 mg PO DAILY@0800 mental health 01/15/24
famotidine 20 mg tablet (Pepcid) 40 mg PO HS Gastrointestinal Issue 01/15/24
fexofenadine 180 mg tablet 360 mg PO HS Allergies 01/15/24
gabapentin 300 mg capsule 300 mg PO QID@08,,, Neurological Condition 01/15/24
hydroxyzine pamoate 25 mg capsule 25 mg PO QID@08,,,22 Mental Health/Anxiety 01/15/24
infliximab 100 mg intravenous solution (Remicade) 7.5 mg IV Q6W Crohn's disease 01/15/24
melatonin 10 mg tablet 10 mg PO HS@2300 Sleep 01/15/24
oxycodone 10 mg tablet,crush resistant,extended release 12 hr (OxyContin) 10 mg PO HS@2300 chronic pain 01/15/24
vitamin A 3,000 mcg (10,000 unit) capsule 3,000 mcg PO HS Supplement 02/26/24
hydromorphone 4 mg tablet 4 mg PO Q4HPRN PRN severe breakthrough pain 05/09/24
therapeutic multivitamin 1 tab PO HS Supplement 05/09/24
Lactobac no.2-Bifidobac no.1-S. thermo 112.5 billion cell capsule (Visbiome) 2 cap PO DAILY #30 caps 05/14/24
oxycodone 10 mg tablet 10 mg PO HSPRN PRN severe pain 05/26/24
docusate sodium 100 mg tablet 300 mg PO DAILYPRN PRN constipation 07/30/24
polyethylene glycol 3350 17 gram oral powder packet (Miralax) 17 g PO DAILYPRN PRN constipation 07/30/24
bisacodyl 5 mg tablet,delayed release (Dulcolax (bisacodyl)) 5 mg PO DAILYPRN PRN constipation 10/15/24
triamcinolone acetonide 0.1 % topical cream 1 applic topical BIDPRN PRN rash 10/15/24
clindamycin 600 mg/50 mL in 5 % dextrose intravenous piggyback 600 mg IV Q8H 14 days #42 amps 10/17/24
Review of Systems
-
History Source: Patient
Constitutional: Reports Fever, Sleep Disturbance and Chills
EENT: Reports No Symptoms
Respiratory: Reports No Symptoms
Cardiac: Reports No Symptoms
Abdomen/GI: Reports Diarrhea
: Reports No Symptoms
Musculoskeletal: Reports Other (RUE pain, erythema, and edema at PICC insertion site )
Skin: Reports No Symptoms
Neurological: Reports No Symptoms
Endocrine: Reports No Symptoms
Hematologic/Lymphatic: Reports No Symptoms
Psych: Reports No Symptoms
Physical Exam
Vital Signs
Vital Signs
Temp Pulse Resp BP Pulse Ox
99.3 F 147 20 111/79 98
10/23/24 16:05 10/23/24 16:05 10/23/24 16:05 10/23/24 19:00 10/23/24 19:00
Physical Exam
General: Well Developed, Well Nourished, No Apparent Distress, Comfortable and Conversant
HEENT: NormoCephalic, Moist mucous membranes, Atraumatic, [place] Conjunctivae, Nose Appears Normal and Ears Appear Normal
Respiratory: Clear
Cardiac: S1/S2, Regular Rhythm and Tachycardia
Breast: Deferred by me
GI: Soft, Non Tender, Non Distended and Normal Bowel Sounds; No Organomegaly
Rectal: Deferred by Provider
Genito-urinary: Deferred by me
Musculoskeletal: No Clubbing, No Cyanosis and No Edema
Skin: Warm, IV/Catheter Site and Other (RUE PICC insertion site edematous with erythema)
Neuro: Awake, Alert, AO x 3 and Nonfocal/grossly intact
Psych: Calm and Intact Judgment/Insight
Laboratory Results
-
10/23/24 16:19
10/23/24 16:17
Laboratory Results
Lactic Acid 2.2 mmol/L (0.7-2.0) H 10/23/24 16:19
Total Bilirubin 0.6 mg/dl (0.2-1.3) 10/23/24 16:17
AST 39 U/L (14-36) H 10/23/24 16:17
ALT 33 U/L (0-35) 10/23/24 16:17
Alkaline Phosphatase 88 U/L (38-126) 10/23/24 16:17
Data Reviewed
-
Lab Data: Labs Reviewed by me (Lactic 2.2)
Impression/Plan
-
IMPRESSION/PLAN:
#sepsis likely 2/2 PICC line infection
#dental infection
recent hospitalization 10/07/2024 - 10/10/2024 for recurrent dental infection complicated by facial cellulitis and s/p dental bone graft infection-removed 06/2024 and 10/15/2024-10/18/2024 for recurrent dental infection and ID consult
discharged with IV Clindamycin
Lactic 2.2
PICC tip Cx: pending
Blood Cx: pending
- Admit to med/surg
- Consult ID
- IV Vanco and Clindamycin
- supportive care
#Crohn's disease
- continue Remicade out patient
#anxiety/depression
- continue clonazepam, Cymbalta and hydroxyzine
#chronic pain
- continue home pain regimen
#OCD
#Celiac's disease
Code status: full code
DVT prophylaxis: Lovenox sq
[2024-10-23] MEDS: DILAUDID 4 MG PO (21:09)
[2024-10-23] MEDS: CLEOCIN 50 IV (21:10)
--- NOTE | 2024-10-23 21:40 | W.PN.UPDATE ---
Update Note
Progress Note Update
Patient seen in conjunction with SHAQUILLE. I agree with her findings on history and physical. I concur with the assessment and plan unless stated otherwise.
Briefly, 29 y.o female with h/o Crohns disease on Remicade, chronic pain on opioids, h/o recurrent dental infection on chronic antibiotics, currently finished ertapenem and now on clindamycin presenting to the emergency department with the redness
and swelling that site the insertion site of her picc line.
Patient has been on clindamycin now for a tooth abscess for last 1 week 2 and on October 28. She stated that she initially noticed some flow issues with the PICC line about 2 days ago. On Wednesday she noticed some redness. She decided not to come to the
emergency department at that time. She awoke this morning with chills and decided to come to the emergency department. She did not measure a fever at home. She denies any infectious symptoms including cough, shortness of breath, dysuria frequency
or urgency. Patient reports slight increasing diarrhea since being on the clindamycin but reports that the consistency and smell of the stool was not different.
On my examination the PICC line has been removed. We decided self was not swollen or red at this time. There is no cord to be palpated. The distal upper extremity was without any edema. Unlikely there is any deep venous thrombosis. When the
PICC line was removed there was no clot pulled along with it.
In the emergency department she had a Tmax of 99.3, blood pressure 110/80 with a pulse as high as 147.
CBC was unremarkable. Electrolytes BUN and creatinine were normal. Lactic acid was slightly elevated at 2.2.
Assessment and plan
PICC line infection -nonseptic
-Admit to MedSurg
- PICC line discontinued, sent for cultures
- Blood culture sent
- IV Vanco started
- Continue patient's clindamycin for gum infection
- ID consult
- Replacement of line after blood cultures have returned
Tooth infection
- Continue clindamycin till October 28 by ID
- Pain control as per home regimen
- IV Dilaudid every 3 to 4 hours for breakthrough pain
Crohn's disease -diarrhea appears to be similar to baseline. No C. difficile
- Continue probiotic
DVT PPX - lovenox sq
Code status - Full Code
[2024-10-23] MEDS: LR 1000 IV ×2 (21:50→23:15)
[2024-10-23] MEDS: VANCOCIN 540 MG IV (21:55)
--- NOTE | 2024-10-23 22:20 | PTCARENOTE ---
Pt arrived from ED via stretcher, ambulated to bed with steady gait. aaox3, cooperative, anxious and tremulous. oriented to room. at the bedside. Reviewed current medications ordered with Pt extensively. Reached out to House CARD SORTER in regards to
Pt's missing evening doses. Call kimbrough within reach.
--- NOTE | 2024-10-23 23:07 | PHA.VAN.IN ---
Assessment
- Assessment
Renal Function: Appears similar to baseline (10/18/24 BASELINE SCR: 0.8)
Concomitant Antimicrobials: CLINDAMYCIN
- Previous Dosing Experience
Previous Regimen: 1GM IV Q12H
Date of Regimen: 07/05/24
Provided Trough of: 11.3 PREDICTED
Provided AUC of: 468 PREDICTED
Patient's SCR is: Elevated compared to previous dosing experience (07/05/24 SCR = 0.7)
Patient's weight is: Elevated compared to previous dosing experience (07/05/24 WT = 68.6 KG)
AUC Dosing Plan
- Dosing Variables
Dosing Weight (kg): 73.7
Dosing CrCl (ml/min): 92
Vd coefficient (L/kg): 0.7
- Empiric Dosing
Initial / Loading Dose: 2GM
Maintenance Regimen: 1GM IV Q12H
Estimated AUC (mcg*h/mL): 499
Estimated Peak (mcg*h/mL): 31.2
Estimated Trough (mcg/ml): 12.8
Estimated Half Life (H): 8.6
Pharmacokinetics Vancomycin I
- -
Patient Age: 29
Patient Sex: Female
Vancomycin Day #: 1
Indication: Skin And Soft Tissue (PICC LINE INFECTION)
Requesting Provider: JASMINE
Height / Weight:
Height 5 ft 4 in
Actual Weight 73.7 kg
Pertinent Past Medical History: IMMUNOCOMPROMISED
- Vital Signs / Lab Results
Temp Pulse Resp BP Pulse Ox
98.5 F 90 20 125/65 99
10/23/24 21:27 10/23/24 21:27 10/23/24 16:05 10/23/24 22:00 10/23/24 22:00
Lab Results - Hematology
10/23/24
16:19
WBC 6.9
Lab Results - Chemistry
10/23/24
16:17
BUN 7
Creatinine 0.9
Albumin 3.8
10/23/24 10/23/24
16:18 16:19
Lactic Acid 2.3 H 2.2 H
[2024-10-23] MEDS: NEURONTIN 300 MG PO (23:16)
[2024-10-23] MEDS: KLONOPIN 1 MG PO (23:16)
[2024-10-23] MEDS: ATARAX 25 MG PO (23:16)
[2024-10-23] MEDS: OXYCONTIN (CONTROLLED RELEASE) 10 MG PO (23:16)
[2024-10-23] MEDS: VISBIOME 2 CAP PO (23:38)
[2024-10-23] MEDS: ROXICODONE 10 MG PO (23:38)
[2024-10-23] MEDS: PEPCID 40 MG PO (23:39)
[2024-10-24] MEDS: DILAUDID 1 MG IV ×5 (00:28→22:07)
[2024-10-24 00:36] VITALS: BP 137/82
--- NOTE | 2024-10-24 00:40 | PTCARENOTE ---
Pt rang for assistance. Pt sitting in bed, bent over, and tremulous. C/o severe LLQ pain and mild nausea. Pt states 'I developed this pain in my abdomen, I straight cathed myself for a good amount and I also tried having a bowel movement. I went a
good amount. This pain is getting worse and I have never had it before.' at the bedside. Pt requesting phenergan for nausea, states 'it should be on my chart that I take phenergan for nausea.' House OIL EXPELLER notified. vital signs stable. afebrile,
Pt states 'I don't get fevers.' IVF infusing and medicated with prn dilaudid.
[2024-10-24] MEDS: NON-FORMULARY ITEM 360 MG PO (01:42)
[2024-10-24] MEDS: PHENERGAN 12.5 MG PO (01:43)
[2024-10-24] MEDS: MELATONIN 10 MG PO ×2 (01:59→23:40)
--- NOTE | 2024-10-24 03:00 | W.PN.UPDATE ---
Update Note
Progress Note Update
RN reported patient c/o feeling nauseous and requesting Phenergan, and also is complaining of 'severe lower abdomen pain'. patient seen and evaluated, states she had severe abdomen pain all of a sudden, and which caused her to be nauseous. States
she never had this pain before and its all new. Abdomen soft non tender, +BS, lower abdomen mildly tender but she states she just catheterized 'decent' amount as usual. At present denies abdomen pain but states she is nauseous, and not in any other
apparent distress.Last BM yesterday. Reports she cannot have Zofran, Compazine, Reglan as it causes her neurological symptoms, therefore requesting Phenergan. Addressed Phenergan has similar side effects. Reports she has taken Phenergan prior at
home one month ago, without any side effects. Addressed the SE of pain medications can be nauseous. Hx of abdomen pain and chronic pain syndrome noted. If pain persists may consider KUB.
[2024-10-24] MEDS: CLEOCIN 50 IV ×2 (04:17→09:47)
[2024-10-24] MEDS: ROXICODONE 10 MG PO ×5 (04:17→21:01)
[2024-10-24] MEDS: VANCOCIN 200 IV ×2 (05:50→17:44)
[2024-10-24 07:01] LABS: Hematocrit 31.7 % (37.0-47.0); Hemoglobin 10.8 g/dL (12.0-16.0); Mean Corp Hgb Conc. 34.1 g/dL (33.0-37.0); Mean Corpuscular Hgb 27.4 pg (27.0-31.0); Mean Corpuscular Volume 80.5 fL (81.0-99.0); Mean Platelet Volume 11.2 fL (7.4-10.4); Platelet Count 252 10^3/uL (130-400); Red Blood Cell Count 3.94 10^6/uL (4.20-5.40); Red Cell Dist. Width 14.3 % (11.5-14.5); White Blood Cell Count 9.5 10^3/uL (4.8-10.8)
[2024-10-24 07:38] VITALS: BP 119/68
[2024-10-24] MEDS: CYMBALTA DELAYED RELEASE 60 MG PO (07:41)
[2024-10-24] MEDS: VITAMIN C 500 MG PO ×2 (07:41→20:13)
[2024-10-24] MEDS: CYMBALTA DELAYED RELEASE 30 MG PO (07:41)
[2024-10-24] MEDS: NEURONTIN 300 MG PO ×4 (07:42→22:01)
[2024-10-24] MEDS: ATARAX 25 MG PO ×4 (07:42→22:02)
[2024-10-24] MEDS: VISBIOME 2 CAP PO (07:42)
[2024-10-24 07:57] LABS: Blood Urea Nitrogen 9 mg/dl (7-17); Calcium 8.8 mg/dl (8.4-10.2); Carbon Dioxide 26 mmol/L (22-30); Chloride 106 mmol/L (98-107); Estimated Creatinine Clearance 103 ml/min; Glucose 99 mg/dl (70-99); Potassium 4.2 mmol/L (3.5-5.1); Sodium 140 mmol/L (135-145); eGFR > 60.00
--- NOTE | 2024-10-24 09:06 | PHA.VAN.FU ---
Vancomycin Assessment / Plan
- Assessment
Renal Function: Stable
WBC's are: WNL
In the past 24 hrs, patient has been: Afebrile
Concomitant Antimicrobials: clindamycin
- Dosing Plan
Continue: Vanc 1000mg Q12H
- Monitoring Plan
No level(s) ordered at this time: consider levels in next few days
- Follow Up
Pharmacy will continue to follow.
Vancomycin Follow UP
- -
Patient Age: 29
Patient Sex: Female
Vancomycin Day #: 2
Indication: Skin And Soft Tissue
Requesting Provider: Abrahan Castellanos
Pertinent Antimicrobial Allergies:
amoxicillin / clavulanic acid - rash
piperacillin/tazobactam - exacerbation of chronic arthritis
quinolones - nausea
doxycycline - nausea / vomiting
metronidazole - nausea / vomiting
Height / Weight:
Height 5 ft 4 in
Actual Weight 73.7 kg
Pertinent Past Medical History: Crohn's (infliximab)
- Vital Signs / Lab Results
Temp Pulse Resp BP Pulse Ox
97.7 F 92 18 119/68 100
10/24/24 07:38 10/24/24 07:38 10/24/24 07:38 10/24/24 07:38 10/24/24 08:15
Lab Results - Hematology
10/23/24 10/24/24
16:19 06:09
WBC 6.9 9.5
Lab Results - Chemistry
10/23/24 10/24/24
16:17 06:09
BUN 7 9
Creatinine 0.9 0.8
Estimated Creat Clear 103
Albumin 3.8
10/23/24 10/23/24
16:18 16:19
Lactic Acid 2.3 H 2.2 H
[2024-10-24] MEDS: LR IV (09:32)
--- NOTE | 2024-10-24 09:37 | W.PN.HOSP.TC ---
Today's Communication/Plan
-
US to r/o fluid collection
cont Abx
ID consult
stop IVF
Assessment / Plan
Assessment / Plan
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
clindamycin since developed vomiting with oral formulation, set to complete on 10/28/24 develpped redness over her R PICC line gradually worsening and sent to ED by ID for concern for CLABSI
A/P:
#Infected PICC r/o CLABSI
PICC removed
US RUE soft tissue due to induration at the site of PICC
Bcx ntd
line tip Cx pending
Vanco to cont
ID consult
#MAxillar infection
cont Clinda as per ID
emphasized need in close f/u by MFS - patient will schedule apt [facility] after d/c
#Essential tremor
#Crohns
#Chronic eosynophilia
#Chronic mild anemia
#CHronic pain syndrome, presumably 2/2 enthesitis
#GERD
#Anxiety d/o
cont home meds
outpatient f/u by PCP
#mild AST elevation
probably 2/2 Abx
minimal elevation to 39 and stable - no concern for DILI
DVT ppx lovenox
Full code
I have spent at least 57 min reviewing chart, test results, communication with consultants and providing direct patient care
Anticipated Discharge: > 48 hours
Subjective/Interval History
-
Date of Service: October 24, 2024
Objective Data
-
Labs:
Laboratory Results
10/24/24
06:09
WBC 9.5
Hgb 10.8 L
Hct 31.7 L
Plt Count 252
Sodium 140
Potassium 4.2
Chloride 106
Carbon Dioxide 26
BUN 9
Creatinine 0.8
Glucose 99
Calcium 8.8
Vital Signs:
Vital Signs
Temp Pulse Resp BP Pulse Ox
97.7 F 92 18 119/68 100
10/24/24 07:38 10/24/24 07:38 10/24/24 07:38 10/24/24 07:38 10/24/24 08:15
Review of Systems
-
History Source: Patient
All other systems: Reviewed and negative
Physical Exam
-
General: No Apparent Distress
HEENT: Normocephalic
Skin: Other (redness without purulence over RUE catheter site)
Neuro: Awake, Alert, Oriented and AO x 3
Psych: Calm
[2024-10-24] MEDS: KLONOPIN 1 MG PO ×2 (10:57→23:40)
--- NOTE | 2024-10-24 12:28 | CON.ID ---
Consultation
-
Date/Time Consultation Requested: 10/23/24 22:19
Date/Time Consultation Performed: 10/24/24 13:25
Requesting Provider: WENDY Castellanos
Performing Provider: Dr Morse
Reason for Consultation: possible PICC line infection
Chief Complaint / Past History
Chief Complaint
shaking chills, erythema around R picc line
History of Present Illness
Ms Olivia is a 29 year old female with history of Crohns disease on Remicade, enthesitis on chronic narcotics. She is known to ID service for a history of recurrent dental infection complicated by facial cellulitis. She is currently on a two
week course of IV clindamycin for suspected odontogenic infection. I recommended oral clindamycin but she refused the oral version, she was accepting of the IV version. She now tells me she feels she has PTSD related to oral antibiotics. I
suggested a psychiatry evaluation and she refused 'I dont need it.' Over the last 48 hours she has noticed some erythema of the right forearm and new, subjective tenderness over the line itself. Reports shaking chills, no lori fevers over 100.5.
She feels that Ts in the 98 range is a fever for her. She presented to the ER and picc was removed, cath tip sent for culture. I do appreciate some erythema over the right forearm today, no cords. She reports a single episode of colicky abdominal
pain overnight that resolved after defecation. No further abdominal pain today. Reports intermittent constipation and loose stools. She was planned to complete the course of clindamycin in 4 days.
Since arrival here no recorded fevers, bp overall stable, wbc on arrivla 6.9 now 9.5, hgb 10.8, plt 252, there was no L shift on arrival, AEC was 800, cr 0.8, lactic acid 2.3 on arrival then 2.2, lfts essentially normal, blood cultures x2 are in
progress as is the cath tip culture. Vancomycin was added to her clindamycin. ID is consulted for assistance with management.
Past History
Additional Past Medical History:
Apudoma of skin
correction (current) use of opiate analgesic
Crohn's disease, unspecified, without complications
Obsessive-compulsive disorder
Mild episode of recurrent major depressive disorder
Crohn's disease
Mood disorder
Constipation
Rectal prolapse
Celiac disease
Palpitations
Abdominal pain
Gastrointestinal Crohn's disease
Chronic pain syndrome
major depressive disorder with psychotic features
Anxiety
Additional Past Surgical History:
recent oral surgery
Allergy History:
amoxicillin [From Augmentin] Allergy (Intermediate, Verified 10/23/24 16:05)
Rash
clavulanic acid [From Augmentin] Allergy (Intermediate, Verified 10/23/24 16:05)
Rash
egg Allergy (Verified 10/23/24 16:05)
Anaphylaxis
gluten Allergy (Verified 10/23/24 16:05)
stomach pain
prochlorperazine Allergy (Verified 10/23/24 16:05)
Akathesia
shrimp Allergy (Verified 10/23/24 16:05)
Unknown
tree nut Allergy (Verified 10/23/24 16:05)
Hives
piperacillin [From Zosyn] Adverse Reaction (Intermediate, Verified 10/23/24 16:05)
exacberation of chronic arthritic pain
tazobactam [From Zosyn] Adverse Reaction (Intermediate, Verified 10/23/24 16:05)
exacberation of chronic arthritic pain
Quinolones Adverse Reaction (Mild, Verified 10/23/24 16:05)
Nausea
doxycycline Adverse Reaction (Verified 10/23/24 16:05)
Nausea / Vomiting
metronidazole Adverse Reaction (Verified 10/23/24 16:05)
Nausea / Vomiting
Medications Reviewed: Yes
Social History
Tobacco: Non-Smoker
Alcohol: None
Drug: None
Family History
Family History: Not Pertinent
Review of Systems
Review of Systems
General: Chills; Negative Fever
All systems: All other systems were reviewed and were negative
Vital Signs
Temp Pulse Resp BP Pulse Ox
97.7 F 92 18 119/68 100
10/24/24 07:38 10/24/24 07:38 10/24/24 07:38 10/24/24 07:38 10/24/24 08:15
Physical Exam
Physical Exam
Constitutional: No Acute Distress
Cardiovascular: Regular Rate and S1/S2; Negative Murmur or Rub
Pulmonary: Clear and Symmetric; Negative Wheezes, Rales or Rhonchi
Gastrointestinal: Soft, Non Tender, Non Distended and Normal Bowel Sounds
Extremities: Other (mild erythema of the right mid-arm around the site of prior PICC; no cords, area is not currently tender, no fluctuance)
Skin: Warm and Dry; Negative Rash or Jaundice
Lines: PIV (two PIVs of the LUE)
Lab / Diagnostic Study Results
10/24/24 06:09
10/24/24 06:09
Abs Immat Gran (auto) 0.0 10^3/uL (0-0.05) 10/23/24 16:19
Absolute Neuts (auto) 2.3 10^3/uL (1.4-6.5) 10/23/24 16:19
Absolute Lymphs (auto) 3.2 10^3/uL (1.2-3.4) 10/23/24 16:19
Absolute Monos (auto) 0.5 10^3/uL (0.1-0.6) 10/23/24 16:19
Absolute Basos (auto) 0.1 10^3/uL (0-0.2) 10/23/24 16:19
Immature Gran % 0.1 % (0-0.5) 10/23/24 16:19
Neutrophils % 32.9 % (42.2-75.2) L 10/23/24 16:19
Lymphocytes % 47.0 % (20.5-51.1) 10/23/24 16:19
Monocytes % 7.7 % (1.7-9.3) 10/23/24 16:19
Eosinophils % 11.6 % (0-6) H 10/23/24 16:19
Basophils % 0.7 % (0-2) 10/23/24 16:19
Lactic Acid 2.2 mmol/L (0.7-2.0) H 10/23/24 16:19
Microbiology Results
Micro:
10/23/24 16:19 Blood Culture - Pending
Blood/Venous
10/23/24 19:58 Catheter Tip Culture - Pending
Picc
10/23/24 16:19 Blood Culture - Pending
Blood/Venous
Assessment / Plan
Possible recurrent odontogenic infection
Immunosuppression
Intolerance to multiple antibiotics
Household contact with prior C difficile, no personal h/o C difficile
- continue clindamycin which she is tolerating, switched to oral - plan two week course through 10/28
- can proceed with outpatient dental procedure as planned from ID perspective, she will be on effective perioperative antibiotics with clindamycin or could get perioperative clindamycin if the procedure is moved
- probiotics/probiotic foods
Possible PICC Line infection
- follow blood cultures which are in progress
- follow cath tip culture
- continue vancomycin for now, if a gram negative is IDd then I would add cefepime 2 gm IV q8 hrs
[2024-10-24 15:21] VITALS: BP 97/48
[2024-10-24] MEDS: LOVENOX 40 MG SC (17:44)
[2024-10-24] MEDS: CLEOCIN 600 MG PO (17:44)
[2024-10-24] MEDS: ROXICODONE PO (20:13)
[2024-10-24] MEDS: PEPCID 40 MG PO (22:01)
[2024-10-24] MEDS: NON-FORMULARY ITEM 180 MG PO (22:02)
[2024-10-24 23:00] VITALS: BP 127/65
[2024-10-24] MEDS: OXYCONTIN (CONTROLLED RELEASE) 10 MG PO (23:40)
[2024-10-25] MEDS: CLEOCIN 600 MG PO ×3 (01:30→17:56)
[2024-10-25] MEDS: ROXICODONE 10 MG PO ×5 (01:32→21:02)
[2024-10-25] MEDS: DILAUDID 1 MG IV ×5 (02:35→23:53)
[2024-10-25] MEDS: VANCOCIN 200 IV ×2 (06:29→17:56)
[2024-10-25 07:27] VITALS: BP 96/48
[2024-10-25] MEDS: NEURONTIN 300 MG PO ×4 (07:32→21:02)
[2024-10-25] MEDS: CYMBALTA DELAYED RELEASE 60 MG PO (07:32)
[2024-10-25] MEDS: CYMBALTA DELAYED RELEASE 30 MG PO (07:32)
[2024-10-25] MEDS: VITAMIN C 500 MG PO ×2 (07:33→19:14)
[2024-10-25] MEDS: ATARAX 25 MG PO ×4 (07:36→21:02)
[2024-10-25] MEDS: VISBIOME 2 CAP PO (07:36)
--- NOTE | 2024-10-25 08:48 | PHA.VAN.FU ---
Vancomycin Assessment / Plan
- Assessment
Renal Function: Stable
WBC's are: WNL
In the past 24 hrs, patient has been: Afebrile
Concomitant Antimicrobials: clindamycin
- Dosing Plan
Continue: Vanc 1000mg Q12H
- Monitoring Plan
Peak Level: 10/25 20:30
Trough Level: 10/26 05:30
Monitoring Comments: Levels to be drawn after 4th maintenance dose
- Follow Up
Pharmacy will continue to follow.
Vancomycin Follow UP
- -
Patient Age: 29
Patient Sex: Female
Vancomycin Day #: 3
Indication: Skin And Soft Tissue
Requesting Provider: Abrahan Castellanos / Dr. Morse
Pertinent Antimicrobial Allergies:
amoxicillin / clavulanic acid - rash
piperacillin/tazobactam - exacerbation of chronic arthritis
quinolones - nausea
doxycycline - nausea / vomiting
metronidazole - nausea / vomiting
Height / Weight:
Height 5 ft 4 in
Actual Weight 73.7 kg
Pertinent Past Medical History: Crohn's (infliximab)
- Vital Signs / Lab Results
Temp Pulse Resp BP Pulse Ox
97.9 F 79 18 96/48 98
10/25/24 07:27 10/25/24 07:27 10/25/24 07:27 10/25/24 07:27 10/25/24 07:27
Lab Results - Hematology
10/23/24 10/24/24
16:19 06:09
WBC 6.9 9.5
Lab Results - Chemistry
10/23/24 10/24/24
16:17 06:09
BUN 7 9
Creatinine 0.9 0.8
Estimated Creat Clear 103
Albumin 3.8
10/23/24 10/23/24
16:18 16:19
Lactic Acid 2.3 H 2.2 H
Microbiology Results
10/23/24 16:19 Blood Culture - Preliminary
Blood/Venous No Growth in 24 hours- Final report to follow
10/23/24 16:19 Blood Culture - Preliminary
Blood/Venous No Growth in 24 hours- Final report to follow
[2024-10-25] MEDS: THERAGRAN 1 TABLET PO (09:34)
--- NOTE | 2024-10-25 10:46 | W.PN.HOSP.TC ---
Today's Communication/Plan
-
cont vanco, tolerating oral clinda pedning Bcx and tip Cx
Assessment / Plan
Assessment / Plan
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
clindamycin since developed vomiting with oral formulation, set to complete on 10/28/24 develpped redness over her R PICC line gradually worsening and sent to ED by ID for concern for CLABSI
A/P:
#Infected PICC r/o CLABSI
PICC removed
US RUE soft tissue due to induration at the site of PICC
Bcx ntd
line tip Cx pending
Vanco to cont
ID consult
#MAxillar infection
cont Clinda as per ID
emphasized need in close f/u by MFS - patient will schedule apt [facility] after d/c
#Essential tremor
#Crohns
#Chronic eosynophilia
#Chronic mild anemia
#CHronic pain syndrome, presumably 2/2 enthesitis
#GERD
#Anxiety d/o
cont home meds
outpatient f/u by PCP
#mild AST elevation
probably 2/2 Abx
minimal elevation to 39 and stable - no concern for DILI
DVT ppx lovenox
Full code
I have spent at least 57 min reviewing chart, test results, communication with consultants and providing direct patient care
Anticipated Discharge: 24 - 48 hours
Subjective/Interval History
-
Date of Service: October 25, 2024
Objective Data
-
Vital Signs:
Vital Signs
Temp Pulse Resp BP Pulse Ox
97.9 F 79 18 96/48 98
10/25/24 07:27 10/25/24 07:27 10/25/24 07:27 10/25/24 07:27 10/25/24 07:27
I&O
10/24/24 10/25/24 10/26/24
06:59 06:59 06:59
Intake Total 3580 / 3580
Balance 3580 / 3580
Review of Systems
-
History Source: Patient
All other systems: Reviewed and negative
Physical Exam
-
General: Comfortable
Respiratory: Clear to Auscultation
Cardiac: Regular Rhythm
Neuro: Awake, Alert, Oriented, AO x 3 and Tremors
Psych: Calm
[2024-10-25] MEDS: KLONOPIN 1 MG PO (11:31)
--- NOTE | 2024-10-25 12:21 | W.PN.ID1 ---
Date of Service
Date of Service: October 25, 2024
Today's Communication
- if blood cultures remain negative tomorrow can consider discharge on clindamycin
- she has OMFS appointment for wednesday
Assessment / Plan
Possible PICC Line infection
- follow blood cultures which are in progress, no growth to date
- cath tip culture - preliminary negative
- continue vancomycin for now, if a gram negative is IDd then I would add cefepime 2 gm IV q8 hrs
- if blood cultures remain negative tomorrow can consider discharge on clindamycin
Possible odontogenic infection
Immunosuppression
Intolerance to multiple antibiotics
OCD/Anxiety
Household contact with prior C difficile, no personal h/o C difficile
- continue clindamycin which she is tolerating in oral formulationl - plan two week course through 10/28
- can proceed with outpatient dental procedure as planned from ID perspective, she will be on effective perioperative antibiotics with clindamycin or could get perioperative clindamycin if the procedure is moved
- probiotics/probiotic foods while on clindamycin
- she has OMFS appointment for wednesday
Chief Complaint
-: Other (line infection)
Subjective / Review of Systems
afebrile
bp stable
tolerating current therapies
one of the caps on her tooth fell off today - right maxilla side, the contralateral side
Vital Signs / Physical Exam
Vital Signs
Vital Signs
Temp Pulse Resp BP Pulse Ox
97.9 F 79 18 96/48 98
10/25/24 07:27 10/25/24 07:27 10/25/24 07:27 10/25/24 07:27 10/25/24 07:27
Physical Exam
Constitutional: No Acute Distress
Cardiovascular: Regular Rate and S1/S2; Negative Murmur or Rub
Pulmonary: Clear and Symmetric; Negative Wheezes or Rales
Gastrointestinal: Soft, Non Tender, Non Distended and Normal Bowel Sounds
Skin: Warm and Dry; Negative Rash or Jaundice
Objective Data
Lab Data
Lab Results
10/24/24 06:09
10/24/24 06:09
Estimated Creat Clear 103 ml/min 10/24/24 06:09
Lactic Acid 2.2 mmol/L (0.7-2.0) H 10/23/24 16:19
Total Bilirubin 0.6 mg/dl (0.2-1.3) 10/23/24 16:17
AST 39 U/L (14-36) H 10/23/24 16:17
ALT 33 U/L (0-35) 10/23/24 16:17
Alkaline Phosphatase 88 U/L (38-126) 10/23/24 16:17
Most recent labs reviewed.
Micro Results:
10/23/24 19:58 Catheter Tip Culture - Preliminary
Picc NO GROWTH
10/23/24 16:19 Blood Culture - Preliminary
Blood/Venous No Growth in 24 hours- Final report to follow
10/23/24 16:19 Blood Culture - Preliminary
Blood/Venous No Growth in 24 hours- Final report to follow
[2024-10-25 15:07] VITALS: BP 113/52
[2024-10-25] MEDS: LOVENOX 40 MG SC (17:05)
[2024-10-25] MEDS: PEPCID 40 MG PO (21:02)
[2024-10-25] MEDS: NON-FORMULARY ITEM 180 MG PO (21:03)
[2024-10-25 21:37] LABS: Vancomycin Peak 31.4 ug/ml (18-26)
[2024-10-25 23:00] VITALS: BP 107/69
--- NOTE | 2024-10-25 23:33 | PTCARENOTE ---
Patient's Vanco peak- 31.4, updated pharmacy.
--- NOTE | 2024-10-26 00:15 | PTCARENOTE ---
Addendum entered by Kenna Watts RN 10/26/24 00:57:
Patient's 23:00 meds given at 00:33 as per patient's request.
Original Note:
Patient with c/o chronic pain and requesting for IV Dilaudid. Education provided of other pain management options as there is orders for PO Dilaudid so we can start weaning off from IV. Patient adamantly asking for IV. Administered pain med as per
patient's request.
[2024-10-26] MEDS: KLONOPIN 1 MG PO ×2 (00:33→11:52)
[2024-10-26] MEDS: OXYCONTIN (CONTROLLED RELEASE) 10 MG PO (00:33)
[2024-10-26] MEDS: MELATONIN 10 MG PO (00:33)
[2024-10-26] MEDS: CLEOCIN 600 MG PO ×2 (00:59→10:05)
[2024-10-26 05:55] LABS: % Basophils 0.8 % (0-2); % Eosinophils 10.9 % (0-6); % Immature Granulocytes 0.1 % (0-0.5); % Lymphocytes 45.3 % (20.5-51.1); % Monocytes 9.9 % (1.7-9.3); Absolute Basophils 0.1 10^3/uL (0-0.2); Absolute Eosinophils 0.9 10^3/uL (0-0.7); Absolute Lymphocytes 3.6 10^3/uL (1.2-3.4); Absolute Monocytes 0.8 10^3/uL (0.1-0.6); Absolute Neutrophils 2.6 10^3/uL (1.4-6.5); Hematocrit 32.6 % (37.0-47.0); Hemoglobin 11.4 g/dL (12.0-16.0); Mean Corpuscular Hgb 27.9 pg (27.0-31.0); Mean Corpuscular Volume 79.7 fL (81.0-99.0); Mean Platelet Volume 10.9 fL (7.4-10.4); Nucleated Red Blood Cells % 0 %; Platelet Count 244 10^3/uL (130-400); Red Blood Cell Count 4.09 10^6/uL (4.20-5.40); Red Cell Dist. Width 13.9 % (11.5-14.5); White Blood Cell Count 7.9 10^3/uL (4.8-10.8)
[2024-10-26 06:20] LABS: Blood Urea Nitrogen 16 mg/dl (7-17); Calcium 8.7 mg/dl (8.4-10.2); Carbon Dioxide 29 mmol/L (22-30); Chloride 103 mmol/L (98-107); Estimated Creatinine Clearance 103 ml/min; Glucose 92 mg/dl (70-99); Potassium 4.1 mmol/L (3.5-5.1); Sodium 140 mmol/L (135-145); eGFR > 60.00
[2024-10-26 06:23] LABS: Vancomycin Trough 15.1 ug/ml (5-20)
[2024-10-26] MEDS: VANCOCIN 200 IV (06:23)
[2024-10-26 07:21] VITALS: BP 92/57
[2024-10-26] MEDS: VISBIOME 2 CAP PO (07:48)
[2024-10-26] MEDS: CYMBALTA DELAYED RELEASE 60 MG PO (07:48)
[2024-10-26] MEDS: CYMBALTA DELAYED RELEASE 30 MG PO (07:49)
[2024-10-26] MEDS: VITAMIN C 500 MG PO (07:49)
[2024-10-26] MEDS: THERAGRAN 1 TABLET PO (07:50)
[2024-10-26] MEDS: ROXICODONE 10 MG PO ×2 (07:53→11:55)
[2024-10-26] MEDS: NEURONTIN 300 MG PO ×2 (07:53→13:08)
[2024-10-26] MEDS: ATARAX 25 MG PO ×2 (07:54→13:08)
--- NOTE | 2024-10-26 08:27 | PHA.VAN.FU ---
Vancomycin Assessment / Plan
- Assessment
Renal Function: Stable
WBC's are: WNL
In the past 24 hrs, patient has been: Afebrile
Concomitant Antimicrobials: clindamycin
- Assessment - Therapeutic Drug Monitoring
Extrapolated Cmax (mcg/mL): 38.2
Peak level was drawn: Appropriately (drawn ~2.3H after end of previous infusion)
Extrapolated Cmin (mcg/mL): 14.8
Trough Drawn: Appropriately
Levels were drawn: At steady state (levels drawn after 4th maintenance dose)
Calculated AUC (mcg*h/mL): 596
Calculated ke: 0.0861
Calculated half life (H): 8
Calculated Vd (L): 39 (~0.5 L/kg)
Calculated Vanc CL (ml/min): 56
- Dosing Plan
Adjust Regimen to: Vanc 750mg Q12H
New Regimen Predicts: AUC (467), Peak (29.9), Trough (11.6)
- Monitoring Plan
No level(s) ordered at this time: consider levels in next few days
- Follow Up
Pharmacy will continue to follow.
Vancomycin Follow UP
- -
Patient Age: 29
Patient Sex: Female
Vancomycin Day #: 4
Indication: Skin And Soft Tissue
Requesting Provider: Abrahan Castellanos / Dr. Morse
Pertinent Antimicrobial Allergies:
amoxicillin / clavulanic acid - rash
piperacillin/tazobactam - exacerbation of chronic arthritis
quinolones - nausea
doxycycline - nausea / vomiting
metronidazole - nausea / vomiting
Height / Weight:
Height 5 ft 4 in
Actual Weight 73.7 kg
Pertinent Past Medical History: Crohn's (infliximab)
- Vital Signs / Lab Results
Temp Pulse Resp BP Pulse Ox
98.6 F 95 18 92/57 96
10/26/24 07:21 10/26/24 07:21 10/26/24 07:21 10/26/24 07:21 10/26/24 07:21
Lab Results - Hematology
10/23/24 10/24/24 10/26/24
16:19 06:09 05:43
WBC 6.9 9.5 7.9
Lab Results - Chemistry
10/23/24 10/24/24 10/26/24
16:17 06:09 05:43
BUN 7 9 16
Creatinine 0.9 0.8 0.8
Estimated Creat Clear 103 103
Albumin 3.8
10/23/24 10/23/24
16:18 16:19
Lactic Acid 2.3 H 2.2 H
Microbiology Results
10/23/24 16:19 Blood Culture - Preliminary
Blood/Venous No Growth in 48 hours- Final report to follow
10/23/24 16:19 Blood Culture - Preliminary
Blood/Venous No Growth in 48 hours- Final report to follow
10/23/24 19:58 Catheter Tip Culture - Preliminary
Picc NO GROWTH
Therapeutic Drug Monitoring
Vancomycin Peak 31.4 ug/ml (18-26) H 10/25/24 21:13
Vancomycin Trough 15.1 ug/ml (5-20) 10/26/24 05:43
[2024-10-26] MEDS: DILAUDID 1 MG IV ×2 (09:12→15:03)
--- NOTE | 2024-10-26 12:08 | W.PN.HOSP.TC ---
Today's Communication/Plan
-
pending final ID recommendations
Assessment / Plan
Assessment / Plan
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
clindamycin since developed vomiting with oral formulation, set to complete on 10/28/24 develpped redness over her R PICC line gradually worsening and sent to ED by ID for concern for CLABSI. Bcx and TIp Cx neg, ID follows. Patient has [facility] appt on
10/27/24 which she advised to keep
A/P:
#Infected PICC r/o CLABSI
PICC removed
US RUE soft tissue due to induration at the site of PICC
Bcx ntd
line tip Cx NTD
Vanco to cont
ID consult
#MAxillar infection
cont Clinda as per ID
emphasized need in close f/u by [facility] - patient will schedule apt [facility] after d/c
#Essential tremor
#Crohns
#Chronic eosynophilia
#Chronic mild anemia
#CHronic pain syndrome, presumably 2/2 enthesitis
#GERD
#Anxiety d/o
cont home meds
outpatient f/u by PCP
#mild AST elevation
probably 2/2 Abx
minimal elevation to 39 and stable - no concern for DILI
DVT ppx lovenox
Full code
I have spent at least 35 min reviewing chart, test results, communication with consultants and providing direct patient care
Anticipated Discharge: Within 24 hours
Subjective/Interval History
-
Date of Service: October 26, 2024
Objective Data
-
Labs:
Laboratory Results
10/26/24
05:43
WBC 7.9
Hgb 11.4 L
Hct 32.6 L
Plt Count 244
Sodium 140
Potassium 4.1
Chloride 103
Carbon Dioxide 29
BUN 16
Creatinine 0.8
Glucose 92
Calcium 8.7
Vital Signs:
Vital Signs
Temp Pulse Resp BP Pulse Ox
98.6 F 95 18 92/57 96
10/26/24 07:21 10/26/24 07:21 10/26/24 07:21 10/26/24 07:21 10/26/24 07:21
I&O
10/25/24 10/26/24 10/27/24
06:59 06:59 06:59
Intake Total 3580 / 3580 840 / 840
Balance 3580 / 3580 840 / 840
Review of Systems
-
History Source: Patient
All other systems: Reviewed and negative
Physical Exam
-
General: No Apparent Distress
HEENT: Normocephalic
Cardiac: Regular Rhythm
GI: Soft, Nontender and Nondistended
Musculoskeletal: No Clubbing, No Cyanosis and No Edema
Neuro: Awake, Alert, Oriented, AO x 3 and Tremors
Psych: Calm
--- NOTE | 2024-10-26 12:37 | PN.CDI ---
Addendum entered and electronically signed by Zhou Meneses MD 10/26/24 13:26:
not clear for diagnosing at this time
Original Note:
CDI
- -
CDI:
Physician Documentation Request
Admit Date: 10/23/24 21:18
Dear Doctor Gideon,
Clinical Indicators:
Patient admitted with infected PICC line.
10/23 H & P, '...chronic pain on opioids...'
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
10/24 - 10/26 Dilaudid 1 mg IV q4h severe pain; per MAR, multiple prn doses given.
Home medications include: Hydromorphone 4 mg tablet 4 mg PO Q4HPRN
Oxycodone 10 mg tablet 10 mg PO QID
Oxycodone 10 mg tablet 10 mg PO HSPRN
Based on the above, could you clarify in the progress notes, the appropriate diagnosis, if significant, that supports the above medication usage:
Opioid use with dependence
Opioid use only
Other, please specify
Use of terms such as suspected, likely, concern for, or probable (associated with a specific diagnosis that is being evaluated, monitored, or treated as if it exists) are acceptable and can be coded in the inpatient setting, when documented at the
time of discharge.
Thank you,
HELADIO Dickson RN
CDI Specialist
available via tiger text
Please use your independent medical judgment in providing your response.
[2024-10-26 15:29] VITALS: BP 120/61
--- NOTE | 2024-10-26 15:43 | W.DCSUMMARY ---
Discharge Summary
Discharge Data
Date of Admission: 10/23/24
Date of Discharge: 10/26/24
-
Pending Results: Yes
Additional Pending Results:
final Bcx and tip Cx
Hospital Course
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
clindamycin since developed vomiting with oral formulation, set to complete on 10/28/24 develpped redness over her R PICC line gradually worsening and sent to ED by ID for concern for CLABSI. Bcx and TIp Cx neg, ID follows. Patient has [facility] appt on
10/27/24 which she advised to keep. Medically stable to be d/c home on oral clinamycin that she had tolerated in the hospital.
I have spent at least 35 min reviewing chart, test results, communication with consultants and providing direct patient care
Patient was managed for
#possible infected PICC
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
#Essential tremor
#Crohns
#Chronic eosinophilia
#Chronic mild anemia
#Chronic pain syndrome, presumably 2/2 enthesitis
#GERD
#Anxiety d/o
#mild AST elevation
Discharge Plan
-
Patient Disposition: Home (Routine Discharge)
Discharge Diagnosis/Procedures: cellulitis
Diet: Regular
Referrals:
Nadege Dyson PA [Family Provider] -
Prescriptions:
New
clindamycin HCl 300 mg capsule
600 mg PO TID Qty: 16 0RF
Continued
oxycodone 10 mg Tablet
10 mg PO QID@08,12,17,21
clonazepam 1 mg Tablet
1 mg PO BID@1130,2300
fexofenadine 180 mg Tablet
360 mg PO HS
acetaminophen [Tylenol Extra Strength] 500 mg Tablet
1,000 mg PO Q6HPRN PRN (Reason: mild pain)
famotidine [Pepcid] 20 mg Tablet
40 mg PO HS
ascorbic acid (vitamin C) [Vitamin C] 500 mg Tablet
500 mg PO BID
infliximab [Remicade] 100 mg Recon Soln
7.5 mg IV Q6W
Rx Instructions:
7.5 mg/kg
gabapentin 300 mg Capsule
300 mg PO QID@,,,
hydroxyzine pamoate 25 mg capsule
25 mg PO QID@,,,
duloxetine [Cymbalta] 30 mg Capsule,Delayed Release(Dr/Ec)
30 mg PO DAILY@0800
Rx Instructions:
take with 60mg
duloxetine [Cymbalta] 60 mg Capsule,Delayed Release(Dr/Ec)
60 mg PO DAILY@0800
Rx Instructions:
take with 30mg
melatonin 10 mg Tablet
10 mg PO HS@2300
oxycodone [OxyContin] 10 mg Tablet,Oral Only,Ext.Rel.12 Hr
10 mg PO HS@2300
vitamin A 3,000 mcg (10,000 unit) Capsule
3,000 mcg PO HS
therapeutic multivitamin Tablet
1 tab PO HS
hydromorphone 4 mg Tablet
4 mg PO Q4HPRN PRN (Reason: severe breakthrough pain)
Visbiome 112.5 billion cell capsule
2 cap PO DAILY Qty: 30 0RF
oxycodone 10 mg Tablet
10 mg PO HSPRN PRN (Reason: severe pain)
polyethylene glycol 3350 [Miralax] 17 gram Powder In Packet
17 g PO DAILYPRN PRN (Reason: constipation)
docusate sodium 100 mg Tablet
300 mg PO DAILYPRN PRN (Reason: constipation)
triamcinolone acetonide 0.1 % cream
1 applic TOPICAL BIDPRN PRN (Reason: rash)
Rx Instructions:
trunk
bisacodyl [Dulcolax (bisacodyl)] 5 mg Tablet,Delayed Release (Dr/Ec)
5 mg PO DAILYPRN PRN (Reason: constipation)
clindamycin in 5 % dextrose 600 mg/50 mL Piggyback
600 mg IV Q8H 14 Days Qty: 42 0RF
Discharge Orders:
Discharge Patient (As Directed); Ordered 10/26/24
Ordered By: Zhou Meneses
Discharge Date and Time
Print Language: SWEDISH
--- NOTE | 2024-10-26 15:55 | CM ---
Patient seen bedside, initial assessment completed. Patient is a 29-year-old female with past medical history significant for Crohn's, anxiety/depression, OCD, Celiac and recent dental pain.
She came to ED for evaluation of ongoing dental pain, fever and chills. ID was following for IV abx, however it was determined that pt will be discharged to home with plan to go to oromaxillofacial appointment tomorrow which was previously
scheduled. Oral ABX prescribed.
Patient resides w/ spouse in [facility] 3 steps to enter. Patient is independent w/ ambulating and ADLs, no DME identified. No hx of PT or HC hx reported.
Plan: Discharge home with OP oromaxillofacial appt tomorrow. Pt's will transport.
PCP: Nadege Dyson
Pharmacy: [facility] in [place]
--- NOTE | 2024-10-26 16:28 | W.PN.ID1 ---
Date of Service
Date of Service: October 26, 2024
Today's Communication
- continue clindamycin which she is tolerating in oral formulation - plan two week course through 10/28
Stable for dc from ID perspective
Assessment / Plan
Possible PICC Line infection
- blood cultures negative
- cath tip culture - negative
- stop vancomycin
Possible odontogenic infection
Immunosuppression
Intolerance to multiple antibiotics
OCD/Anxiety
Household contact with prior C difficile, no personal h/o C difficile
- continue clindamycin which she is tolerating in oral formulation - plan two week course through 10/28 then will stop and observe clinically
- can proceed with outpatient dental procedure as planned from ID perspective, she could get perioperative clindamycin if the procedure is moved
- probiotics/probiotic foods while on clindamycin
- she has [facility] appointment for wednesday; discussed course with Dr Cabrales today via phone
Stable for dc from ID perspective
Chief Complaint
-: Other (line infection)
Subjective / Review of Systems
afebrile
bp stable
tolerating current therapies
does report small pimple and about 1/2 cc drainage from L maxilla; I do see a small area with tiny white dot on the L maxillary gum that is new, otherwise gums not erythematous or swollen
Vital Signs / Physical Exam
Vital Signs
Vital Signs
Temp Pulse Resp BP Pulse Ox
99.6 F 100 17 120/61 97
10/26/24 15:29 10/26/24 15:29 10/26/24 15:29 10/26/24 15:29 10/26/24 15:29
Physical Exam
Constitutional: No Acute Distress
Head: Other (does report small pimple and about 1/2 cc drainage from L maxilla; I do see a small area with tiny white dot on the L maxillary gum that is new, otherwise gums not erythematous or swollen)
Cardiovascular: Regular Rate and S1/S2; Negative Murmur or Rub
Pulmonary: Clear and Symmetric; Negative Wheezes or Rales
Gastrointestinal: Soft, Non Tender, Non Distended and Normal Bowel Sounds
Skin: Warm and Dry; Negative Rash or Jaundice
Objective Data
Lab Data
Lab Results
10/26/24 05:43
10/26/24 05:43
Estimated Creat Clear 103 ml/min 10/26/24 05:43
Lactic Acid 2.2 mmol/L (0.7-2.0) H 10/23/24 16:19
Total Bilirubin 0.6 mg/dl (0.2-1.3) 10/23/24 16:17
AST 39 U/L (14-36) H 10/23/24 16:17
ALT 33 U/L (0-35) 10/23/24 16:17
Alkaline Phosphatase 88 U/L (38-126) 10/23/24 16:17
Most recent labs reviewed.
Micro Results:
10/23/24 16:19 Blood Culture - Preliminary
Blood/Venous No Growth in 72 hours- Final report to follow
10/23/24 16:19 Blood Culture - Preliminary
Blood/Venous No Growth in 72 hours- Final report to follow
10/23/24 19:58 Catheter Tip Culture - Preliminary
Picc No Growth After 48 Hours
== END 2024-10-26 16:49 | disposition home or self-care (01) | DRG 315 ==
LOC: 3 WEST ACU 21:18
PROVIDERS: Emergency Medicine; Nurse Practitioner Family; ADMITTING PHYSICIAN Internal Medicine; ATTENDING PHYSICIAN Internal Medicine; EMERGENCY PHYSICIAN Emergency Medicine; FAMILY PHYSICIAN Physician Assistant Medical; OTHER PHYSICIAN Student in an Organized Health Care Education/Training Program
DX: T80.211A Bloodstream infection due to central venous catheter, initial encounter (principal); D84.821 Immunodeficiency due to drugs; K50.90 Crohn's disease, unspecified, without complications; K21.9 Gastro-esophageal reflux disease without esophagitis; K04.7 Periapical abscess without sinus; G25.0 Essential tremor; D64.9 Anemia, unspecified; F42.9 Obsessive-compulsive disorder, unspecified; G89.4 Chronic pain syndrome; F41.9 Anxiety disorder, unspecified; F32.A Depression, unspecified; Y84.8 Other medical procedures as the cause of abnormal reaction of the patient, or of later complication, without mention of misadventure at the time of the procedure; Z79.899 Other long term (current) drug therapy; Z79.891 Long term (current) use of opiate analgesic; Z79.620 Long term (current) use of immunosuppressive biologic; Z88.0 Allergy status to penicillin; Z88.1 Allergy status to other antibiotic agents; Z79.2 Long term (current) use of antibiotics
CPT/HCPCS: 76882; 80048; 80053; 80202; 83605; 85025; 85027; 87040; 87084; 99285

== ENCOUNTER → 2024-11-02 08:34 | Outpatient (REF) | payer BC, SELFPAY | LOC: RADI 08:34 | PROVIDERS: ATTENDING PHYSICIAN Student in an Organized Health Care Education/Training Program; FAMILY PHYSICIAN Physician Assistant Medical | DX: M86.8X8 Other osteomyelitis, other site (principal) | CPT/HCPCS: 36573; C1751 ==

== ENCOUNTER 2024-11-04 05:12 | Emergency (ER) | payer BC, SELFPAY ==
[2024-11-04] VITALS (7 sets, daily range): BP systolic 100–132; BP diastolic 66–91; BMI 28.8
--- NOTE | 2024-11-04 07:53 | ED.GENMED ---
History of Present Illness
General
Chief Complaint: Heart Rate Problem
Source: patient
Exam Limitations: none
Time Seen by Provider: 11/04/24 07:13
Nursing documentation reviewed up to this point in time: agreed with
History of Present Illness
History of Present Illness:
29-year-old female immunocompromise secondary to Crohn's on Remicade, frequent dental infections secondary to prednisone use no longer on prednisone
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
Recent admission 10-23 to 10-26 for concern for PICC line infection which was pulled and replaced on clindamycin every 6 and Rocephin daily
For the next 6-weeks
Had a tooth extraction #10 5 days ago
Says that 3 days ago she started feeling intermittent palpitations described as a racing heart rate which makes her feel uncomfortable. She does not really have chest pain, pleuritic pain or shortness of breath but she feels anxious. She does
admit to underlying anxiety and a resting tremor at baseline but she feels slightly worse. Patient is on oxycodone daily with Dilaudid for breakthrough pain and last had her Dilaudid 7 hours ago. Patient says she is always in pain. She has felt
like her temperature is slightly high than her baseline,'s stating that 99.5 at home earlier today would be a fever for her
Patient has had some left-sided facial swelling which she thinks is getting a little bit worse since her tooth extraction but nowhere near the size that it was when she had cellulitis in a dental abscess last month
She has not had any syncope, vomiting, diarrhea, rash,
Patient says home health nurse instructed her that if her palpitations got worse she should come to the hospital. Patient says she had 3 episodes last night lasting variable amounts of time, several minutes where she felt like her heart was racing
in the 120s. She thinks her heart rate usually is under 100
Past History
Past History
ED Past Medical History: Other (Crohn's disease, celiac, IBS, anxiety), Other (Recurrent dental infections/facial cellulitis-PICC line in place. She is scheduled) and Other (Chronic pain syndrome-narcotic dependent)
ED Past Surgical History: Orthopedic and Other (Bowel surgery)
Social History
Tobacco: Non-smoker
Alcohol: Occasional
Drug: None
Personal: Single (Engage)
Living: with family
Employment: Not employed
Family History
Family History: Other (her dads mother had Juvenile RA, mother has palpitations)
Review of Systems
Review of Systems
Allergies reviewed?: Yes
All Other Systems: Not applicable
Phy Exam
Physical Exam
Physical Exam:
GENERAL: Alert , i mildly anxious, resting tremor
EYE: pupils equal and reactive
NECK: Supple
ENT: o/p clr, mmm.
Gingiva without periapical abscess
CARDIAC: Regular rate and rhythm . No murmur
LUNGS: Clear breath sounds bilaterally, no acute respiratory distress, no wheezes/rales/rhonchi
ABDOMEN: Soft, without focal tenderness, no r/g, no cvat, normal bowel sounds
NEUROLOGICAL: Alert and oriented, no focal neuro deficits
SKIN: Warm and dry, skin intact. PICC line present, no surrounding erythema
MUSCULOSKELETAL: No edema, well perfused. neg true's sign right-sided PICC line without any significant findings, distal extremity normal
PSYCH: Normal and appropriate interaction.
Course
Orders/Labs/Results
Orders:
Orders
11/04/24 07:13
Electrocardiogram (*1) Urgent
Reason for Study: Palpitations
11/04/24 07:14
EKG- Treatment ONCE
11/04/24 07:50
0.9% Sodium Chloride 1000 ml [Nss] 1,000 ml IV BOLUS
HYDROmorphone [Dilaudid] 1 mg IV NOW STA
Test Result ONCE
11/04/24 09:08
Complete Blood Count/With Diff Urgent
Comprehensive Metabolic Panel Urgent
HCG, Serum Qualitative Screen Urgent
Lactic Acid Urgent
Magnesium Urgent
Phos [Phosphorus] Urgent
CR Chest - 2 Views Urgent
Comment:
Reason For Exam: picc line
11/04/24 10:37
Gabapentin [Neurontin] 300 mg PO NOW STA
11/04/24 10:39
Echo 2D MMode Color/Doppler Urgent
Reason for Study: r/o endocarditis ,recent dental infections, palpitatinos
Oxycodone [Roxicodone] 5 mg PO NOW STA
11/04/24 13:04
Consult Infectious Disease [INFECTIOUS DISEASE CONSULT] Urgent
Consulting Provider: Marli Morse
Was physician already notified: Yes
11/04/24 13:26
Blood Culture Q30M
DESIRE Source: Blood/Venous
Specimen Description:
Blood Culture Q30M
DESIRE Source: Blood/Venous
Specimen Description:
11/04/24 14:38
Rivaroxaban [Xarelto] 15 mg PO NOW STA
Abnormal Lab Results
11/04/24
09:08
RBC 4.02 L 10^6/uL
(4.20-5.40)
Hgb 11.0 L g/dL
(12.0-16.0)
Hct 32.0 L %
(37.0-47.0)
MCV 79.6 L fL
(81.0-99.0)
Absolute Monos (auto) 0.8 H 10^3/uL
(0.1-0.6)
Absolute Eos (auto) 0.9 H 10^3/uL
(0-0.7)
Neutrophils % 41.8 L %
(42.2-75.2)
Monocytes % 9.8 H %
(1.7-9.3)
Eosinophils % 10.4 H %
(0-6)
BUN 3 L mg/dl
(7-17)
Lactic Acid < 0.5 L mmol/L
(0.7-2.0)
11/04/24 09:08
11/04/24 09:08
Vital Signs
Initial and Last Documented VS:
Initial Vital Signs
Temp Pulse Resp BP Pulse Ox
37.1 C 126 20 118/91 96
11/04/24 05:17 11/04/24 05:17 11/04/24 05:17 11/04/24 05:17 11/04/24 05:17
Last Documented Vital Signs
Temp Pulse Resp BP Pulse Ox
37.2 C 101 16 132/68 100
11/04/24 06:00 11/04/24 10:00 11/04/24 10:00 11/04/24 10:00 11/04/24 11:22
MDM/Problems Addressed
Differential Diagnosis Includes:
Palpitations, sinus tachycardia, dehydration, pain, electrolyte abnormalities, anemia, infection
MDM/Problems Addressed:
29-year-old female with a history of immunocompromise state, multiple infections in her mouth recently and requiring a PICC line for IV antibiotics for the next several weeks, recent suspected PICC line infection which was replaced several days
ago presents for palpitations felt as racing heart rate over the past 2 days, no syncope, no fever though the patient says she oftentimes does not mount a fever with her infections. Patient says she has not had her pain medication in 7 hours and is
in pain currently. She has not had any chest pain, shortness of breath, syncope. Patient has no history of endocarditis. She did recently have a tooth extraction 4 days ago for an ongoing dental infectious process and is on IV clinda and
Rocephin. She was told by home health nurse to come to the hospital if her palpitations got worse overnight which they did. Patient presented to the emergency department tachycardic in the 120s, she was down in the 90s when I saw her but when she
would talk it would go into the 110s. Patient had no fever, repeated temperature by me 98.4. O2 sats 100%, normal blood pressure. Patient appeared anxious to me with a slight tremor, had no murmur appreciated on exam, a PICC line was covered with
a dressing, brief examination did not reveal any signs of infection, she discussed about her left cheek area looking slightly puffy but not overly erythematous or significantly swollen based on previous facial cellulitis this seems to be more
reactive to the tooth extraction. There is no signs of a periapical swelling on exam.
Her workup here was reassuring with a normal white count, normal lactic acid which the patient specifically asked me to order,
Chest x-ray showing her PICC line near the right atrium
And EKG
With normal sinus rhythm and no ischemic changes. Patient was given her pain medication and IV fluids and her tachycardia promptly resolved I discussed all of this with the patient but she was still convinced that she could have endocarditis given
her recent
Manipulation to her teeth as well as PICC line and I discussed this case with ED attending Dr. Manju Wynne who recommended that we can obtain an echo to be thorough. Her echo was read by the maintenance director and noted that she has no valve vegetations
however there was an area on the tip of the catheter that could represent a thrombus. I spoke with her infectious disease doctor who formally consulted on this case and discussed the possible thrombus with the maintenance director Dr. Mulligan and ultimately
the plan is to cover her with Xarelto, treatment dose and have a repeat echocardiogram arranged as an outpatient next week. I spoke with Dr. Hemphill regarding this he said his team will reach out to her to schedule this. Patient's line was
cultured, she had a peripheral line cultured as well and she will be discharged home. Her tachycardia resolved.
*Critical Care Note
Total Time (30-74mins, 75-104mins- exclusive of procedures): Not Applicable
ED Attending Note
-
Portions of this chart may have been created with voice recognition software.� Occasional wrong word or��sound alike� substitutions may have occurred due to the inherent limitations of voice recognition software.
Discharge Plan
Departure
Patient Disposition: Home (Routine Discharge)
Date of Disposition: 11/04/24
Time of Disposition: 14:35
Patient with high blood pressure during this ER visit?: No
Condition: Fair
Covid-19: Not Applicable
Discharge Problem:
Thrombus due to any device, implant or graft, Tachycardia
Instructions: Palpitations (DC)
Prescriptions:
New
Xarelto DVT-PE Treat 30d Start 15 mg (42)- 20 mg (9) tablets,dose pack
See Rx Instructions .ROUTE .COMPLEX Qty: 51 0RF
Rx Instructions:
TAKE DIRECTED
Xarelto 15 mg tablet
15 mg PO BID Qty: 14 0RF
Xarelto 20 mg tablet
20 mg PO DAILY Qty: 21 0RF
No Action
oxycodone 10 mg Tablet
10 mg PO QID@08,12,17,21
clonazepam 1 mg Tablet
1 mg PO BID@1130,2300
fexofenadine 180 mg Tablet
360 mg PO HS
acetaminophen [Tylenol Extra Strength] 500 mg Tablet
1,000 mg PO Q6HPRN PRN (Reason: mild pain)
famotidine [Pepcid] 20 mg Tablet
40 mg PO HS
ascorbic acid (vitamin C) [Vitamin C] 500 mg Tablet
500 mg PO BID
infliximab [Remicade] 100 mg Recon Soln
7.5 mg IV Q6W
Rx Instructions:
7.5 mg/kg
gabapentin 300 mg Capsule
300 mg PO QID@,,,
hydroxyzine pamoate 25 mg capsule
25 mg PO QID@,,,
duloxetine [Cymbalta] 30 mg Capsule,Delayed Release(Dr/Ec)
30 mg PO DAILY@0800
Rx Instructions:
take with 60mg
duloxetine [Cymbalta] 60 mg Capsule,Delayed Release(Dr/Ec)
60 mg PO DAILY@0800
Rx Instructions:
take with 30mg
melatonin 10 mg Tablet
10 mg PO HS@2300
oxycodone [OxyContin] 10 mg Tablet,Oral Only,Ext.Rel.12 Hr
10 mg PO HS@2300
vitamin A 3,000 mcg (10,000 unit) Capsule
3,000 mcg PO HS
therapeutic multivitamin Tablet
1 tab PO HS
hydromorphone 4 mg Tablet
4 mg PO Q4HPRN PRN (Reason: severe breakthrough pain)
Visbiome 112.5 billion cell capsule
2 cap PO DAILY Qty: 30 0RF
oxycodone 10 mg Tablet
10 mg PO HSPRN PRN (Reason: severe pain)
polyethylene glycol 3350 [Miralax] 17 gram Powder In Packet
17 g PO DAILYPRN PRN (Reason: constipation)
docusate sodium 100 mg Tablet
300 mg PO DAILYPRN PRN (Reason: constipation)
triamcinolone acetonide 0.1 % cream
1 applic TOPICAL BIDPRN PRN (Reason: rash)
Rx Instructions:
trunk
bisacodyl [Dulcolax (bisacodyl)] 5 mg Tablet,Delayed Release (Dr/Ec)
5 mg PO DAILYPRN PRN (Reason: constipation)
clindamycin in 5 % dextrose 600 mg/50 mL Piggyback
600 mg IV Q8H 14 Days Qty: 42 0RF
clindamycin HCl 300 mg capsule
600 mg PO TID Qty: 16 0RF
Referrals:
Jacek Mulligan MD [Active] - Follow up in 5-7 days
Nadege Dyson PA [Family Provider] -
Activity Restrictions/Additional Instructions:
THERE WAS A SUBTLE FINDING ON YOUR PICC LINE ON THE ECHO BUT NO SIGNS OF ENDOCARDITIS
TAKE YOUR ANTIBIOTICS PLANNED
FOR NOW, TAKE XARELTO - THIS IS A BLOOD THINNER
take 15 mg twice a day for the first week
then 20 mg once a day
DR. MULLIGAN'S OFFICE WILL CALL TO ARRANGE ANOTHER ECHO
DRINK FLUIDS, STAY HYDRATED
RETURN FOR ANY CONCERNS
Interventions
Interventions:
*Risk Screen - Suicide Last Done: 11/04/24 05:17
*General Assessment Last Done: 11/04/24 05:17
*Neglect/Abuse Screening Last Done: 11/04/24 05:17
*ED- Fall Risk Assessment Last Done: 11/04/24 05:17
*ED COVID-19 Vaccine History Last Done: 11/04/24 05:17
ED- Cardiac Assessment Last Done: 11/04/24 06:57
ED- Pulmonary Assessment Last Done: 11/04/24 06:57
Discharge Date and Time
Print Language: TAMAZIGHT
[2024-11-04 09:29] LABS: % Basophils 0.5 % (0-2); % Eosinophils 10.4 % (0-6); % Immature Granulocytes 0.1 % (0-0.5); % Lymphocytes 37.4 % (20.5-51.1); % Monocytes 9.8 % (1.7-9.3); % Neutrophils 41.8 % (42.2-75.2); Absolute Eosinophils 0.9 10^3/uL (0-0.7); Absolute Lymphocytes 3.1 10^3/uL (1.2-3.4); Absolute Monocytes 0.8 10^3/uL (0.1-0.6); Absolute Neutrophils 3.4 10^3/uL (1.4-6.5); Mean Corp Hgb Conc. 34.4 g/dL (33.0-37.0); Mean Corpuscular Hgb 27.4 pg (27.0-31.0); Mean Corpuscular Volume 79.6 fL (81.0-99.0); Mean Platelet Volume 10.3 fL (7.4-10.4); Nucleated Red Blood Cells % 0 %; Platelet Count 231 10^3/uL (130-400); Red Blood Cell Count 4.02 10^6/uL (4.20-5.40); Red Cell Dist. Width 14.2 % (11.5-14.5); White Blood Cell Count 8.2 10^3/uL (4.8-10.8)
[2024-11-04 09:38] LABS: HCG, Serum Qualitative Screen Negative
[2024-11-04 09:40] LABS: Lactic Acid < 0.5 mmol/L (0.7-2.0)
[2024-11-04 09:42] LABS: ALT (SGPT) 21 U/L (0-35); AST (SGOT) 26 U/L (14-36); Albumin 3.5 g/dl (3.5-5.0); Alkaline Phosphatase 81 U/L (38-126); Blood Urea Nitrogen 3 mg/dl (7-17); Calcium 8.9 mg/dl (8.4-10.2); Carbon Dioxide 30 mmol/L (22-30); Chloride 105 mmol/L (98-107); Estimated Creatinine Clearance 119 ml/min; Glucose 95 mg/dl (70-99); Magnesium 2.1 mg/dl (1.6-2.3); Phosphorus 4.5 mg/dl (2.5-4.5); Potassium 4.3 mmol/L (3.5-5.1); Sodium 139 mmol/L (135-145); Total Bilirubin 0.7 mg/dl (0.2-1.3); Total Protein 6.7 g/dl (6.3-8.2); eGFR > 60.00
[2024-11-04] MEDS: DILAUDID 1 MG IV (09:53)
[2024-11-04] MEDS: NSS 1000 IV (10:05)
[2024-11-04] MEDS: NEURONTIN 300 MG PO (11:25)
[2024-11-04] MEDS: ROXICODONE 5 MG PO (11:25)
--- NOTE | 2024-11-04 13:57 | CON.ID ---
Consultation
-
Date/Time Consultation Requested: 11/04/24 13:04
Date/Time Consultation Performed: 11/04/24 13:57
Requesting Provider: Pedro KEANE
Performing Provider: Dr Morse
Reason for Consultation: concern for endocarditis
Chief Complaint / Past History
Chief Complaint
palpitations
History of Present Illness
Ms Olivia is a 29 year old female with history of Crohns disease on Remicade, enthesitis on chronic narcotics. She is known to ID service for a history of recurrent dental infections, she is s/p removal of one of the maxillary teeth (#10) with
[facility] on wednesday of this week for endodontic infection. She is on a 6 week course of IV ceftriaxone and clindamycin. She came to the ER today at the recommendation of her home visiting RN for palpitations. Note that she has previously been
assessed for palpitations here. Denies chest pain, shortness of breath. She felt that her heart rate was in the 120s at home. PICC was just placed 11/02.
Since arrival here she has had HR in the 90s to low 100s with sinus tachycardia, BP has overall been stable, wbc 8.2, hgb 11.0, plt 231, no L shift, eos 900 which is in her normal range, na 139, cr 0.7, normal lfts, beta hcg is negative, CXR today
shows PICC line near tip of cavoatrial jn, blood cultures x2 no growth. A TTE was done showing an echo density of the tip of the PICC line most likely thrombus, blood cultures x2 were obtained in paired fashion at my request - one from the picc and
one peripheral
Past History
Additional Past Medical History:
Crohn's disease, celiac, IBS, anxiety), Other (Recurrent dental infections/facial cellulitis-PICC line in place. She is scheduled) and Other (Chronic pain syndrome-narcotic dependent
Additional Past Surgical History:
Bowel surgery
Allergy History:
amoxicillin [From Augmentin] Allergy (Intermediate, Verified 11/04/24 05:17)
Rash
clavulanic acid [From Augmentin] Allergy (Intermediate, Verified 11/04/24 05:17)
Rash
egg Allergy (Verified 11/04/24 05:17)
Anaphylaxis
gluten Allergy (Verified 11/04/24 05:17)
stomach pain
prochlorperazine Allergy (Verified 11/04/24 05:17)
Akathesia
shrimp Allergy (Verified 11/04/24 05:17)
Unknown
tree nut Allergy (Verified 11/04/24 05:17)
Hives
piperacillin [From Zosyn] Adverse Reaction (Intermediate, Verified 11/04/24 05:17)
exacberation of chronic arthritic pain
tazobactam [From Zosyn] Adverse Reaction (Intermediate, Verified 11/04/24 05:17)
exacberation of chronic arthritic pain
Quinolones Adverse Reaction (Mild, Verified 11/04/24 05:17)
Nausea
doxycycline Adverse Reaction (Verified 11/04/24 05:17)
Nausea / Vomiting
metronidazole Adverse Reaction (Verified 11/04/24 05:17)
Nausea / Vomiting
Medications Reviewed: Yes
Social History
Tobacco: Non-Smoker
Alcohol: Occasional
Drug: None
Family History
Family History: Not Pertinent
Review of Systems
Review of Systems
General: Negative Fever or Chills
All systems: All other systems were reviewed and were negative
Vital Signs
Temp Pulse Resp BP Pulse Ox
99.0 F 101 16 132/68 100
11/04/24 06:00 11/04/24 10:00 11/04/24 10:00 11/04/24 10:00 11/04/24 11:22
Physical Exam
Physical Exam
Constitutional: No Acute Distress
Cardiovascular: Regular Rate and S1/S2; Negative Murmur or Rub
Pulmonary: Clear and Symmetric; Negative Wheezes, Rales or Rhonchi
Gastrointestinal: Soft, Non Tender, Non Distended and Normal Bowel Sounds
Skin: Warm and Dry; Negative Rash or Jaundice
Lines: PICC (no erythema or drainage; mild tenderness)
Lab / Diagnostic Study Results
11/04/24 09:08
11/04/24 09:08
Abs Immat Gran (auto) 0.0 10^3/uL (0-0.05) 11/04/24 09:08
Absolute Neuts (auto) 3.4 10^3/uL (1.4-6.5) 11/04/24 09:08
Absolute Lymphs (auto) 3.1 10^3/uL (1.2-3.4) 11/04/24 09:08
Absolute Monos (auto) 0.8 10^3/uL (0.1-0.6) H 11/04/24 09:08
Absolute Basos (auto) 0.0 10^3/uL (0-0.2) 11/04/24 09:08
Immature Gran % 0.1 % (0-0.5) 11/04/24 09:08
Neutrophils % 41.8 % (42.2-75.2) L 11/04/24 09:08
Lymphocytes % 37.4 % (20.5-51.1) 11/04/24 09:08
Monocytes % 9.8 % (1.7-9.3) H 11/04/24 09:08
Eosinophils % 10.4 % (0-6) H 11/04/24 09:08
Basophils % 0.5 % (0-2) 11/04/24 09:08
Lactic Acid < 0.5 mmol/L (0.7-2.0) L 11/04/24 09:08
Microbiology Results
Micro:
11/04/24 13:26 Blood Culture - Pending
Blood/Venous
11/04/24 13:26 Blood Culture - Pending
Blood/Venous
Assessment / Plan
On [facility] IV antibiotics
Palpitations
- mild tenderness at PICC line site is expected during the first few days
- blood cultures x2 paired cultures obtained
- history is not typical of endocarditis, note that her last PICC line was not infected. The current PICC line has been in place for two days, no lori fevers in my opinion and her palpitations have been found to be associated with sinus
tachycardia.
- discussed with Dr Mulligan, plan start xarelto then in 7 days repeat echo for resolution and could stop xarelto if resolved
- continue outpatient ceftriaxone and clindamycin as previously planned
- follow up with PCP
== END 2024-11-04 15:46 | disposition home or self-care (01) ==
LOC: EMR 05:12
PROVIDERS: Physician Assistant; CONSULT PHYSICIAN Student in an Organized Health Care Education/Training Program; EMERGENCY PHYSICIAN Emergency Medicine; FAMILY PHYSICIAN Physician Assistant Medical
DX: T82.868A Thrombosis due to vascular prosthetic devices, implants and grafts, initial encounter (principal); Y84.8 Other medical procedures as the cause of abnormal reaction of the patient, or of later complication, without mention of misadventure at the time of the procedure; R00.0 Tachycardia, unspecified; K50.90 Crohn's disease, unspecified, without complications; F41.9 Anxiety disorder, unspecified; G89.4 Chronic pain syndrome; Z79.891 Long term (current) use of opiate analgesic; Z88.1 Allergy status to other antibiotic agents; Z88.0 Allergy status to penicillin
CPT/HCPCS: 96374; 96361; 99285; 71046; 80053; 83605; 83735; 84100; 84703; 85025; 87040; 93005; 93306

== ENCOUNTER 2024-11-11 12:50 | Emergency (ER) | payer BC, SELFPAY ==
[2024-11-11 13:06] VITALS: BP 110/78
--- NOTE | 2024-11-11 14:57 | ED.GENMED ---
History of Present Illness
General
Chief Complaint: Dental Problem
Time Seen by Provider: 11/11/24 14:57
History of Present Illness
History of Present Illness:
TIME OF INITIAL ENCOUNTER: 3 PM
HPI: The patient presents with dental pain. The patient had dental extraction on 10/31/2024. She has history of being immunocompromise related to Crohn's on Remicade and had frequent dental infections related to prednisone use. She is no longer on
prednisone. 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 She was seen here 7 days ago with palpitations. Of note she is on
chronic narcotic use and states that she is always in pain. The patient did have an echo which showed no valvular vegetations but there was an area at the tip of the catheter could represent thrombus. Dr. Aguirre recommended Xarelto.
EXAM:
GENERAL: Appears uncomfortable
HEENT: There has been extraction of teeth 10 and 11, some gingival erythema but no palpable abscess.
CARDIOVASCULAR: No murmurs, normal heart rate, regular rhythm, No chest wall tenderness
PULMONARY: No respiratory distress, breath sounds are clear and equal
ABDOMEN: Soft with no peritoneal signs, no tenderness
NEUROLOGIC: Excellent strength all extremities, no coordination deficits
PSYCHIATRIC: Appropriate mental status, normal insight and judgement
EXTREMITIES: Nontender, no edema, moves all extremities equally
SKIN: No rash, no lesions
NUMBER AND COMPLEXITY OF PROBLEMS ADDRESSED AT THE ENCOUNTER
� Chronic conditions affecting care: Crohn's
� Acute Exacerbation and/or Progression of Chronic Illness: This is an acute but recurring problem
� Differential Diagnosis includes: Acute exacerbation of chronic pain, pain related to Remicade use, infection, enthesitis from IBD
AMOUNT AND/OR COMPLEXITY OF DATA TO BE REVIEWED AND ANALYZED
� I performed an independent evaluation of and my interpretation is:
EKG:
CT:
X-rays:
Laboratory Studies: White count is normal, hemoglobin 11.6, lactic is normal at 1.3
Other:
� Review of other/old records: PICC culture tip showed no growth in September. Blood cultures from 7 days ago was negative.
� Clinical information was obtained by an independent historian: Spoke to family at bedside
� Prescriptions/Medications Considered but not given:
� Further testing considered but not performed:
RISK OF COMPLICATIONS AND/OR MORBIDITY OR MORTALITY OF PATIENT MANAGEMENT
� Social determinants of health affecting care: Lives at home
� Discussion with other providers: I notified Dr. Cabrales and I also notified Dr. Lawton have any specific recommendations but Dr. Cabrales did recommend that she come to the ER.
� Escalation of care including admission/observation vs risk of discharge considered: Very complex known to Dr. Morse and Dr. Cabrales. She says she spoke to Samra today and she was to call in here, but I see no note.
H/o Crohn's on Remicade. Had tooth #10 extraction 10/31 w/ Samra. Was seen here w/ palpitations/tachycardia 11/04. Chronic opiates. Has been on IV Clinda q8hr and daily Rocephin. When here on 11/04, had an echo and there was questionable thrombus
at tip of PICC. PICC is still being used, but was placed on Xarelto. Had Remicade infusion 2d ago then 6hrs later developed severe pain at dental extraction site. Mild gingival erythema, but no obvious abscess. Initial HR 120s in triage, but when I
eval'd now, HR is 84. Labs pending, but recent cultures neg. Please let me know if you have any other recommendations.
ANY OTHER UPDATES:
Will add a second set of cultures from the PICC line; blood work is reassuring. No clear indication for admission to the hospital.
Past History
Past History
ED Past Medical History: Other (Crohn's disease, celiac, IBS, anxiety), Other (Recurrent dental infections/facial cellulitis-PICC line in place. She is scheduled) and Other (Chronic pain syndrome-narcotic dependent)
ED Past Surgical History: Orthopedic and Other (Bowel surgery)
Social History
Tobacco: Non-smoker
Alcohol: Occasional
Drug: None
Personal: Single (Engage)
Living: with family
Employment: Not employed
Family History
Family History: Other (her dads mother had Juvenile RA, mother has palpitations)
Phy Exam
Physical Exam
Physical Exam:
See HPI
Course
Orders/Labs/Results
Orders:
Orders
11/11/24 15:10
CR Chest Single View Urgent
Comment:
Reason For Exam: eval picc
11/11/24 15:12
HYDROmorphone [Dilaudid] 1 mg IV NOW STA
Ondansetron Injectable [Zofran] 4 mg IV NOW STA
11/11/24 15:45
Blood Culture Q30M
DESIRE Source: Blood/Venous
Specimen Description:
11/11/24 15:56
Basic Metabolic Panel Urgent
Complete Blood Count/With Diff Urgent
Lactic Acid Q4H
Comment: CANCEL 2nd LACTIC ACID IF 1st LACTIC ACID IS LESS THAN 2
Blood Culture Q30M
DESIRE Source: Blood/Venous
Specimen Description:
11/11/24 17:19
Blood Culture Urgent
DESIRE Source: Blood/Venous
Specimen Description:
Comment: PICC
Abnormal Lab Results
11/11/24
15:56
RBC 4.16 L 10^6/uL
(4.20-5.40)
Hgb 11.6 L g/dL
(12.0-16.0)
Hct 32.8 L %
(37.0-47.0)
MCV 78.8 L fL
(81.0-99.0)
RDW 14.7 H %
(11.5-14.5)
MPV 11.0 H fL
(7.4-10.4)
Eosinophils % 6.1 H %
(0-6)
Chloride 110 H mmol/L
(98-107)
11/11/24 15:56
11/11/24 15:56
Vital Signs
Initial and Last Documented VS:
Initial Vital Signs
Temp Pulse Resp BP Pulse Ox
37.2 C 123 16 110/78 98
11/11/24 13:06 11/11/24 13:06 11/11/24 13:06 11/11/24 13:06 11/11/24 13:06
Last Documented Vital Signs
Temp Pulse Resp BP Pulse Ox
37.6 C 69 16 96/67 98
11/11/24 16:19 11/11/24 16:19 11/11/24 16:19 11/11/24 16:19 11/11/24 16:19
*Critical Care Note
Total Time (30-74mins, 75-104mins- exclusive of procedures): Not Applicable
ED Attending Note
-
Portions of this chart may have been created with voice recognition software.� Occasional wrong word or��sound alike� substitutions may have occurred due to the inherent limitations of voice recognition software.
Discharge Plan
Departure
Patient Disposition: Home (Routine Discharge)
Date of Disposition: 11/11/24
Time of Disposition: 17:19
Patient with high blood pressure during this ER visit?: Yes
Discharge Problem:
Pain, dental
Prescriptions:
No Action
oxycodone 10 mg Tablet
10 mg PO QID@08,12,17,21
clonazepam 1 mg Tablet
1 mg PO BID@1130,2300
fexofenadine 180 mg Tablet
360 mg PO HS
acetaminophen [Tylenol Extra Strength] 500 mg Tablet
1,000 mg PO Q6HPRN PRN (Reason: mild pain)
famotidine [Pepcid] 20 mg Tablet
40 mg PO HS
ascorbic acid (vitamin C) [Vitamin C] 500 mg Tablet
500 mg PO BID
infliximab [Remicade] 100 mg Recon Soln
7.5 mg IV Q6W
Rx Instructions:
7.5 mg/kg
gabapentin 300 mg Capsule
300 mg PO QID@,,,
hydroxyzine pamoate 25 mg capsule
25 mg PO QID@,,,
duloxetine [Cymbalta] 30 mg Capsule,Delayed Release(Dr/Ec)
30 mg PO DAILY@0800
Rx Instructions:
take with 60mg
duloxetine [Cymbalta] 60 mg Capsule,Delayed Release(Dr/Ec)
60 mg PO DAILY@0800
Rx Instructions:
take with 30mg
melatonin 10 mg Tablet
10 mg PO HS@2300
oxycodone [OxyContin] 10 mg Tablet,Oral Only,Ext.Rel.12 Hr
10 mg PO HS@2300
vitamin A 3,000 mcg (10,000 unit) Capsule
3,000 mcg PO HS
therapeutic multivitamin Tablet
1 tab PO HS
hydromorphone 4 mg Tablet
4 mg PO Q4HPRN PRN (Reason: severe breakthrough pain)
Visbiome 112.5 billion cell capsule
2 cap PO DAILY Qty: 30 0RF
oxycodone 10 mg Tablet
10 mg PO HSPRN PRN (Reason: severe pain)
polyethylene glycol 3350 [Miralax] 17 gram Powder In Packet
17 g PO DAILYPRN PRN (Reason: constipation)
docusate sodium 100 mg Tablet
300 mg PO DAILYPRN PRN (Reason: constipation)
triamcinolone acetonide 0.1 % cream
1 applic TOPICAL BIDPRN PRN (Reason: rash)
Rx Instructions:
trunk
bisacodyl [Dulcolax (bisacodyl)] 5 mg Tablet,Delayed Release (Dr/Ec)
5 mg PO DAILYPRN PRN (Reason: constipation)
clindamycin in 5 % dextrose 600 mg/50 mL Piggyback
600 mg IV Q8H 14 Days Qty: 42 0RF
clindamycin HCl 300 mg capsule
600 mg PO TID Qty: 16 0RF
Xarelto DVT-PE Treat 30d Start 15 mg (42)- 20 mg (9) tablets,dose pack
See Rx Instructions .ROUTE .COMPLEX Qty: 51 0RF
Rx Instructions:
TAKE DIRECTED
Xarelto 15 mg tablet
15 mg PO BID Qty: 14 0RF
Xarelto 20 mg tablet
20 mg PO DAILY Qty: 21 0RF
Activity Restrictions/Additional Instructions:
Your white blood cell count is normal. Your lactic acid level is normal. I have asked the nurse to draw a set of blood cultures from a peripheral stick and 1 from the PICC line. The chest x-ray showed appropriate positioning of the PICC. I
discussed your case with Dr. Billy, on-call ID who had no further recommendations and I also notified Dr. Cabrales who also had no further recommendations but did want you to be evaluated in the ER. Continue your current medications.
Interventions
Interventions:
*Risk Screen - Suicide Last Done: 11/11/24 13:06
*General Assessment Last Done: 11/11/24 16:16
*Neglect/Abuse Screening Last Done: 11/11/24 13:06
*ED- Fall Risk Assessment Last Done: 11/11/24 16:16
*ED COVID-19 Vaccine History Last Done: 11/11/24 16:16
Discharge Date and Time
Print Language: LIBERIAN
[2024-11-11] MEDS: DILAUDID 1 MG IV (15:53)
[2024-11-11 16:07] LABS: % Basophils 0.5 % (0-2); % Eosinophils 6.1 % (0-6); % Immature Granulocytes 0.2 % (0-0.5); % Lymphocytes 36.3 % (20.5-51.1); % Monocytes 6.3 % (1.7-9.3); % Neutrophils 50.6 % (42.2-75.2); Absolute Eosinophils 0.5 10^3/uL (0-0.7); Absolute Monocytes 0.5 10^3/uL (0.1-0.6); Absolute Neutrophils 4.2 10^3/uL (1.4-6.5); Hematocrit 32.8 % (37.0-47.0); Hemoglobin 11.6 g/dL (12.0-16.0); Mean Corp Hgb Conc. 35.4 g/dL (33.0-37.0); Mean Corpuscular Hgb 27.9 pg (27.0-31.0); Mean Corpuscular Volume 78.8 fL (81.0-99.0); Nucleated Red Blood Cells % 0 %; Platelet Count 225 10^3/uL (130-400); Red Blood Cell Count 4.16 10^6/uL (4.20-5.40); Red Cell Dist. Width 14.7 % (11.5-14.5); White Blood Cell Count 8.3 10^3/uL (4.8-10.8)
[2024-11-11 16:15] VITALS: BMI 28.0
[2024-11-11 16:17] LABS: Lactic Acid 1.3 mmol/L (0.7-2.0)
[2024-11-11 16:18] LABS: Blood Urea Nitrogen 9 mg/dl (7-17); Calcium 8.6 mg/dl (8.4-10.2); Carbon Dioxide 25 mmol/L (22-30); Chloride 110 mmol/L (98-107); Estimated Creatinine Clearance 103 ml/min; Glucose 84 mg/dl (70-99); Sodium 141 mmol/L (135-145); eGFR > 60.00
[2024-11-11 16:19] VITALS: BP 96/67
--- NOTE | 2024-11-11 16:23 | EDRN ---
Ice pack to L face for gum pain.
[2024-11-11 17:41] VITALS: BP 108/70
--- NOTE | 2024-11-11 17:42 | EDRN ---
Per Dr. Benítez Blood culture #1 was drawn peripherally and Blood culture #2 from PICC line.
== END 2024-11-11 17:43 | disposition home or self-care (01) ==
LOC: EMR 12:50
PROVIDERS: EMERGENCY PHYSICIAN Emergency Medicine; FAMILY PHYSICIAN Physician Assistant Medical
DX: K08.89 Other specified disorders of teeth and supporting structures (principal); R03.0 Elevated blood-pressure reading, without diagnosis of hypertension; Z79.01 Long term (current) use of anticoagulants
CPT/HCPCS: 99284; 96374; 71045; 80048; 83605; 85025; 87040

== ENCOUNTER → 2024-11-13 11:10 | Outpatient (REF) | payer BC, SELFPAY | LOC: HWRCS 11:10 | PROVIDERS: ATTENDING PHYSICIAN Internal Medicine; FAMILY PHYSICIAN Physician Assistant Medical | DX: Z45.2 Encounter for adjustment and management of vascular access device (principal); T85.8 Other specified complications of internal prosthetic devices, implants and grafts, not elsewhere classified; R93.1 Abnormal findings on diagnostic imaging of heart and coronary circulation | CPT/HCPCS: 93308 ==

== ENCOUNTER → 2024-12-06 07:41 | Outpatient (REF) | payer BC, SELFPAY ==
[2024-12-06 08:23] LABS: % Basophils 0.5 % (0-2); % Eosinophils 10.6 % (0-6); % Immature Granulocytes 0.3 % (0-0.5); % Lymphocytes 36.9 % (20.5-51.1); % Monocytes 9.6 % (1.7-9.3); % Neutrophils 42.1 % (42.2-75.2); Absolute Eosinophils 0.8 10^3/uL (0-0.7); Absolute Lymphocytes 2.8 10^3/uL (1.2-3.4); Absolute Monocytes 0.7 10^3/uL (0.1-0.6); Absolute Neutrophils 3.2 10^3/uL (1.4-6.5); Hematocrit 33.7 % (37.0-47.0); Hemoglobin 11.5 g/dL (12.0-16.0); Mean Corp Hgb Conc. 34.1 g/dL (33.0-37.0); Mean Corpuscular Hgb 27.7 pg (27.0-31.0); Mean Corpuscular Volume 81.2 fL (81.0-99.0); Mean Platelet Volume 10.4 fL (7.4-10.4); Nucleated Red Blood Cells % 0 %; Platelet Count 266 10^3/uL (130-400); Red Blood Cell Count 4.15 10^6/uL (4.20-5.40); Red Cell Dist. Width 13.8 % (11.5-14.5); White Blood Cell Count 7.6 10^3/uL (4.8-10.8)
[2024-12-06 08:25] VITALS: BP 110/80; BP_SYST 88
[2024-12-06 08:33] LABS: INR 0.97; PT 13.4 Sec (11.4-14.6)
[2024-12-06] MEDS: ATIVAN 0.5 MG IV (08:38)
[2024-12-06] MEDS: PHENERGAN 12.5 MG PO (08:39)
[2024-12-06 09:15] VITALS: BP 118/80; BP_SYST 87
== END ==
LOC: RADI 07:41
PROVIDERS: ATTENDING PHYSICIAN Internal Medicine Hematology & Oncology; FAMILY PHYSICIAN Physician Assistant Medical
DX: D72.10 Eosinophilia, unspecified (principal)
CPT/HCPCS: 88305; 88311; 88312; 36415; 38222; 77012; 85025; 85610; 88313

== ENCOUNTER → 2024-12-24 13:31 | Outpatient (REF) | payer BC, SELFPAY | LOC: PAVMRI 13:31 | PROVIDERS: ATTENDING PHYSICIAN Orthopaedic Surgery; FAMILY PHYSICIAN Physician Assistant Medical | DX: M25.572 Pain in left ankle and joints of left foot (principal) | CPT/HCPCS: 73721 ==

== ENCOUNTER 2025-03-04 22:20 | Emergency (ER) | payer BC, SELFPAY ==
[2025-03-04 22:35] VITALS: BP 125/94
--- NOTE | 2025-03-04 23:05 | EDRN ---
prior. Pt started with increased pain and swelling. Pt has a hx of dental infections where she was hospitalized. Pt is immune compromise. Pt currently on Cephalexin now.
--- NOTE | 2025-03-04 23:26 | ED.GENMED ---
History of Present Illness
<Julius Edouard MD, Resident - Last Filed: 03/05/25 00:51>
General
Chief Complaint: Facial Problem
Source: patient
Time Seen by Provider: 03/04/25 23:02
History of Present Illness
History of Present Illness:
Patient is a 30-year-old female who presents to the emergency department due to jaw and cheek pain and swelling on the right side. She also endorses eyelid drooping and slight discharge from the right eye. The patient has an extensive medical
history including chron's disease with possible chron's enthesitis, immunocompromised state, celiac, IBS, anxiety, recurrent dental infections, and opioid dependence due to chronic pain syndrome. She has been maintained on Remicade 7.5 mg/kg for her
Crohn's. She has been struggling with recurrent dental infections and required IV antibiotics via PICC line on a prior hospital admission in June 2024. She has had an allergic reaction to Augmentin with full body rash. On of this
week she had 2 top dental crowns placed and a root canal done. She was given Keflex 2000 mg prophylactically prior to her procedure and then received another 2000 mg the next day. 2 days following her procedure she has been having increased pain
and swelling on the right side of her face localized to her jaw and cheek. She reached out to her gift shop clerk Dr Steinberg who recommended that she present to the emergency department for further evaluation based on the patient's complex medical history
including an immunocompromised state.
Past History
<Julius Edouard MD, Resident - Last Filed: 03/05/25 00:51>
Past History
ED Past Medical History: Other (Crohn's disease, celiac, IBS, anxiety), Other (Recurrent dental infections/facial cellulitis-PICC line in place. She is scheduled) and Other (Chronic pain syndrome-narcotic dependent)
ED Past Surgical History: Orthopedic and Other (Bowel surgery)
Social History
Tobacco: Non-smoker
Alcohol: Occasional
Drug: None
Personal: Single (Engage)
Living: with family
Employment: Not employed
Family History
Family History: Other (her dads mother had Juvenile RA, mother has palpitations)
Review of Systems
<Julius Edouard MD, Resident - Last Filed: 03/05/25 00:51>
Review of Systems
Constitutional: Reports no symptoms
EENT: Reports tearing ( Right eye tearing with discharge), mouth pain ( right sided jaw pain and cheek pain) and mouth swelling ( swelling of the right side of the mouth)
Respiratory: Reports no symptoms
Cardiac: Reports no symptoms
ABD/GI: Reports no symptoms
: Reports no symptoms
Skin: Reports no symptoms
Neurological: Reports no symptoms
Phy Exam
<Julius Edouard MD, Resident - Last Filed: 03/05/25 00:51>
General Physical Exam
General Presentation: well appearing and mild distress
General age: appears stated age
General Skin: warm and dry
General Habitus: normal
General Mental: alert and anxious
General Hydration: appears well hydrated
Cardiovascular Exam
Cardiovascular Exam: regular rate/rhythm, no edema, no gallop, no JVD, no murmur and normal peripheral pulses
Pulmonary Exam
Pulmonary Exam: lungs clear, no respiratory distress, no rales, chest non tender, no crackles, no rhonchi, no stridor, no wheezing and no cough
Mental
Describe Speech: normal speech
Musculoskeletal Exam
Musculoskeletal Exam: full ROM
Psychiatric Exam
Psychiatric Exam: normal mood/affect and anxious
Course
<Julius Edouard MD, Resident - Last Filed: 03/05/25 00:51>
Orders/Labs/Results
Orders:
Orders
03/04/25 23:44
Complete Blood Count/With Diff Urgent
Comprehensive Metabolic Panel Urgent
03/04/25 23:45
0.9% Sodium Chloride 500 ml [Nss] 500 ml IV BOLUS
03/05/25 00:00
CT Facial Bones W/ Iv Contrast Urgent
Reason For Exam: Right sided facial swelling
03/05/25 00:07
HYDROmorphone [Dilaudid] 1 mg IV NOW STA
03/05/25 00:37
HCG, Urine Qualitative Screen Urgent
Test Result ONCE
03/05/25 01:52
Acetaminophen [Tylenol] 650 mg PO NOW STA
03/05/25 01:53
Acetaminophen [Tylenol] 650 mg .ROUTE .STK-MED ONE
Abnormal Lab Results
03/05/25
00:26
RBC 4.16 L 10^6/uL
(4.20-5.40)
Hgb 10.7 L g/dL
(12.0-16.0)
Hct 32.2 L %
(37.0-47.0)
MCV 77.4 L fL
(81.0-99.0)
MCH 25.7 L pg
(27.0-31.0)
MPV 11.4 H fL
(7.4-10.4)
Absolute Lymphs (auto) 3.5 H 10^3/uL
(1.2-3.4)
Neutrophils % 41.1 L %
(42.2-75.2)
Eosinophils % 6.1 H %
(0-6)
BUN 19 H mg/dl
(7-17)
AST 38 H U/L
(14-36)
03/05/25 00:26
03/05/25 00:26
Vital Signs
Initial and Last Documented VS:
Initial Vital Signs
Temp Pulse Resp BP Pulse Ox
98.0 F 137 20 125/94 95
03/04/25 22:35 03/04/25 22:35 03/04/25 22:35 03/04/25 22:35 03/04/25 22:35
Last Documented Vital Signs
Temp Pulse Resp BP Pulse Ox
98.0 F 137 20 125/94 95
03/04/25 22:35 03/04/25 22:35 03/04/25 22:35 03/04/25 22:35 03/04/25 23:26
<Nimesh Duran, DO - Last Filed: 03/05/25 02:03>
Orders/Labs/Results
Orders:
Orders
03/04/25 23:44
Complete Blood Count/With Diff Urgent
Comprehensive Metabolic Panel Urgent
03/04/25 23:45
0.9% Sodium Chloride 500 ml [Nss] 500 ml IV BOLUS
03/05/25 00:00
CT Facial Bones W/ Iv Contrast Urgent
Reason For Exam: Right sided facial swelling
03/05/25 00:07
HYDROmorphone [Dilaudid] 1 mg IV NOW STA
03/05/25 00:37
HCG, Urine Qualitative Screen Urgent
Test Result ONCE
03/05/25 01:52
Acetaminophen [Tylenol] 650 mg PO NOW STA
03/05/25 01:53
Acetaminophen [Tylenol] 650 mg .ROUTE .STK-MED ONE
Abnormal Lab Results
03/05/25
00:26
RBC 4.16 L 10^6/uL
(4.20-5.40)
Hgb 10.7 L g/dL
(12.0-16.0)
Hct 32.2 L %
(37.0-47.0)
MCV 77.4 L fL
(81.0-99.0)
MCH 25.7 L pg
(27.0-31.0)
MPV 11.4 H fL
(7.4-10.4)
Absolute Lymphs (auto) 3.5 H 10^3/uL
(1.2-3.4)
Neutrophils % 41.1 L %
(42.2-75.2)
Eosinophils % 6.1 H %
(0-6)
BUN 19 H mg/dl
(7-17)
AST 38 H U/L
(14-36)
03/05/25 00:26
03/05/25 00:26
Vital Signs
Initial and Last Documented VS:
Initial Vital Signs
Temp Pulse Resp BP Pulse Ox
98.0 F 137 20 125/94 95
03/04/25 22:35 03/04/25 22:35 03/04/25 22:35 03/04/25 22:35 03/04/25 22:35
Last Documented Vital Signs
Temp Pulse Resp BP Pulse Ox
98.0 F 137 20 125/94 95
03/04/25 22:35 03/04/25 22:35 03/04/25 22:35 03/04/25 22:35 03/04/25 23:26
<Nimesh Duran DO - Last Filed: 03/05/25 02:03>
MDM/Problems Addressed
Differential Diagnosis Includes:
Intraoral abscess, dental infection, dehydration
<Julius Edouard MD, Resident - Last Filed: 03/05/25 00:51>
*Pulse Oximetry
SaO2: 95
Oxygen Mode of Delivery: Room air
Patient hypoxic: no
*Critical Care Note
Total Time (30-74mins, 75-104mins- exclusive of procedures): 60
<Nimesh Duran DO - Last Filed: 03/05/25 02:03>
*Radiology
Radiology exam reviewed: radiology read reviewed (ct face shows mild retromalar cellulitis, no abscess)
*Critical Care Note
Total Time (30-74mins, 75-104mins- exclusive of procedures): Not Applicable
<Julius Edouard MD, Resident - Last Filed: 03/05/25 00:51>
Update Note
Update Note:
Problem List:
Right-sided facial swelling
right eye irritation/drooping
Plan:
CBC and CMP ordered
CT of the facial bones ordered
Differential Diagnoses:
postprocedural swelling
dental abscess
parotiditis
skin infection
sialoadenitis
post endodontic inflammation
cellulitis
contact allergy
Radiology:
EKG: not applicable
Labs:
Updates:
patient given normal saline fluid bolus
patient given 1 mg IV Dilaudid for analgesia
ED Attending Note
<Julius Edouard MD, Resident - Last Filed: 03/05/25 00:51>
-
Portions of this chart may have been created with voice recognition software.� Occasional wrong word or��sound alike� substitutions may have occurred due to the inherent limitations of voice recognition software.
<Nimesh Duran, DO - Last Filed: 03/05/25 02:03>
ED Attending Note
Patient seen and examined by attending physician: Yes
I performed a history and physical exam of patient and discussed management with resident, I reviewed resident's note and agree with documented findings and plan of care.: Yes
ED Attending Note:
I reviewed and agree with history and treatment plan by Julius Parkinson MD. My exam revealed a 21-year-old female no significant distress, right facial swelling no intraoral abscess seen but poor dentition. Mild tachycardia. IV fluids and IV Dilaudid
ordered. CT face with IV contrast pending. If negative and tachycardia improves patient may be discharged to follow-up with gear grinding machine operator. CT shows mild retromalar cellulitis. Continue keflex.
Discharge Plan
Departure
Patient Disposition: Home (Routine Discharge)
Date of Disposition: 03/05/25
Time of Disposition: 02:00
Patient with high blood pressure during this ER visit?: Yes
Condition: Good
Discharge Problem:
Cellulitis of buccal space of mouth
Instructions: Cellulitis (Skin Infection), Adult (DC), BLOOD PRESSURE
Prescriptions:
No Action
oxycodone 10 mg Tablet
10 mg PO QID@08,12,17,21
clonazepam 1 mg Tablet
1 mg PO BID@1130,2300
fexofenadine 180 mg Tablet
360 mg PO HS
acetaminophen [Tylenol Extra Strength] 500 mg Tablet
1,000 mg PO Q6HPRN PRN (Reason: mild pain)
famotidine [Pepcid] 20 mg Tablet
40 mg PO HS
ascorbic acid (vitamin C) [Vitamin C] 500 mg Tablet
500 mg PO BID
infliximab [Remicade] 100 mg Recon Soln
7.5 mg IV Q6W
Rx Instructions:
7.5 mg/kg
gabapentin 300 mg Capsule
300 mg PO QID@,,,
hydroxyzine pamoate 25 mg capsule
25 mg PO QID@,,,
duloxetine [Cymbalta] 30 mg Capsule,Delayed Release(Dr/Ec)
30 mg PO DAILY@0800
Rx Instructions:
take with 60mg
duloxetine [Cymbalta] 60 mg Capsule,Delayed Release(Dr/Ec)
60 mg PO DAILY@0800
Rx Instructions:
take with 30mg
melatonin 10 mg Tablet
10 mg PO HS@2300
oxycodone [OxyContin] 10 mg Tablet,Oral Only,Ext.Rel.12 Hr
10 mg PO HS@2300
vitamin A 3,000 mcg (10,000 unit) Capsule
3,000 mcg PO HS
therapeutic multivitamin Tablet
1 tab PO HS
hydromorphone 4 mg Tablet
4 mg PO Q4HPRN PRN (Reason: severe breakthrough pain)
Visbiome 112.5 billion cell capsule
2 cap PO DAILY Qty: 30 0RF
oxycodone 10 mg Tablet
10 mg PO HSPRN PRN (Reason: severe pain)
polyethylene glycol 3350 [Miralax] 17 gram Powder In Packet
17 g PO DAILYPRN PRN (Reason: constipation)
docusate sodium 100 mg Tablet
300 mg PO DAILYPRN PRN (Reason: constipation)
triamcinolone acetonide 0.1 % cream
1 applic TOPICAL BIDPRN PRN (Reason: rash)
Rx Instructions:
trunk
bisacodyl [Dulcolax (bisacodyl)] 5 mg Tablet,Delayed Release (Dr/Ec)
5 mg PO DAILYPRN PRN (Reason: constipation)
clindamycin in 5 % dextrose 600 mg/50 mL Piggyback
600 mg IV Q8H 14 Days Qty: 42 0RF
clindamycin HCl 300 mg capsule
600 mg PO TID Qty: 16 0RF
Referrals:
UNKNOWN - PT DOES,NOT KNOW [Unknown Provider]
Activity Restrictions/Additional Instructions:
Follow up with gift shop clerk as scheduled. Continue keflex.
Interventions
Interventions:
*Risk Screen - Suicide Last Done: 03/04/25 22:35
*General Assessment Last Done: 03/04/25 22:35
*Neglect/Abuse Screening Last Done: 03/04/25 22:35
*ED- Fall Risk Assessment Last Done: 03/04/25 22:35
*ED COVID-19 Vaccine History Last Done: 03/04/25 22:35
ED- Neurological Assessment Last Done: 03/04/25 23:00
ED-Skin Assessment Last Done: 03/04/25 23:00
Discharge Date and Time
Print Language: LATVIAN
[2025-03-05] MEDS: NSS 500 IV (00:27)
[2025-03-05] MEDS: DILAUDID 1 MG IV (00:29)
[2025-03-05 00:50] LABS: Hematocrit 32.2 % (37.0-47.0); Hemoglobin 10.7 g/dL (12.0-16.0); Mean Corp Hgb Conc. 33.2 g/dL (33.0-37.0); Mean Corpuscular Volume 77.4 fL (81.0-99.0); Nucleated Red Blood Cells % 0 %; Platelet Count 261 10^3/uL (130-400); Red Cell Dist. Width 13.7 % (11.5-14.5)
[2025-03-05 01:14] LABS: ALT (SGPT) 27 U/L (0-35); AST (SGOT) 38 U/L (14-36); Albumin 4.0 g/dl (3.5-5.0); Alkaline Phosphatase 75 U/L (38-126); Blood Urea Nitrogen 19 mg/dl (7-17); Calcium 8.9 mg/dl (8.4-10.2); Carbon Dioxide 28 mmol/L (22-30); Chloride 104 mmol/L (98-107); Glucose 88 mg/dl (70-99); Potassium 4.6 mmol/L (3.5-5.1); Sodium 138 mmol/L (135-145); Total Protein 7.6 g/dl (6.3-8.2); eGFR > 60.00
[2025-03-05] MEDS: TYLENOL 650 MG PO (01:55)
[2025-03-05 02:15] VITALS: BP 97/67
--- NOTE | 2025-03-05 20:09 | ED.GENMED ---
History of Present Illness
General
Chief Complaint: Facial Problem
Time Seen by Provider: 03/04/25 23:02
Past History
Past History
ED Past Medical History: Other (Crohn's disease, celiac, IBS, anxiety), Other (Recurrent dental infections/facial cellulitis-PICC line in place. She is scheduled) and Other (Chronic pain syndrome-narcotic dependent)
ED Past Surgical History: Orthopedic and Other (Bowel surgery)
Social History
Tobacco: Non-smoker
Alcohol: Occasional
Drug: None
Personal: Single (Engage)
Living: with family
Employment: Not employed
Family History
Family History: Other (her dads mother had Juvenile RA, mother has palpitations)
Course
Orders/Labs/Results
Orders:
Orders
03/04/25 23:44
Complete Blood Count/With Diff Urgent
Comprehensive Metabolic Panel Urgent
03/04/25 23:45
0.9% Sodium Chloride 500 ml [Nss] 500 ml IV BOLUS
03/05/25 00:00
CT Facial Bones W/ Iv Contrast Urgent
Reason For Exam: Right sided facial swelling
03/05/25 00:07
HYDROmorphone [Dilaudid] 1 mg IV NOW STA
03/05/25 00:37
Test Result ONCE
03/05/25 01:52
Acetaminophen [Tylenol] 650 mg PO NOW STA
03/05/25 01:53
Acetaminophen [Tylenol] 650 mg .ROUTE .STK-MED ONE
Abnormal Lab Results
03/05/25
00:26
RBC 4.16 L 10^6/uL
(4.20-5.40)
Hgb 10.7 L g/dL
(12.0-16.0)
Hct 32.2 L %
(37.0-47.0)
MCV 77.4 L fL
(81.0-99.0)
MCH 25.7 L pg
(27.0-31.0)
MPV 11.4 H fL
(7.4-10.4)
Absolute Lymphs (auto) 3.5 H 10^3/uL
(1.2-3.4)
Neutrophils % 41.1 L %
(42.2-75.2)
Eosinophils % 6.1 H %
(0-6)
BUN 19 H mg/dl
(7-17)
AST 38 H U/L
(14-36)
03/05/25 00:26
03/05/25 00:26
Vital Signs
Initial and Last Documented VS:
Initial Vital Signs
Temp Pulse Resp BP Pulse Ox
98.0 F 137 20 125/94 95
03/04/25 22:35 03/04/25 22:35 03/04/25 22:35 03/04/25 22:35 03/04/25 22:35
Last Documented Vital Signs
Temp Pulse Resp BP Pulse Ox
98.0 F 78 16 97/67 96
03/04/25 22:35 03/05/25 02:15 03/05/25 02:15 03/05/25 02:15 03/05/25 02:15
*Pulse Oximetry
SaO2: 96
Oxygen Mode of Delivery: Room air
ED Attending Note
-
Portions of this chart may have been created with voice recognition software.� Occasional wrong word or��sound alike� substitutions may have occurred due to the inherent limitations of voice recognition software.
Discharge Plan
Departure
Patient Disposition: Home (Routine Discharge)
Date of Disposition: 03/05/25
Time of Disposition: 02:00
Patient with high blood pressure during this ER visit?: Yes
Condition: Good
Discharge Problem:
Cellulitis of buccal space of mouth
Instructions: Cellulitis (Skin Infection), Adult (DC), BLOOD PRESSURE
Prescriptions:
No Action
oxycodone 10 mg Tablet
10 mg PO QID@08,12,17,21
clonazepam 1 mg Tablet
1 mg PO BID@1130,2300
fexofenadine 180 mg Tablet
360 mg PO HS
acetaminophen [Tylenol Extra Strength] 500 mg Tablet
1,000 mg PO Q6HPRN PRN (Reason: mild pain)
famotidine [Pepcid] 20 mg Tablet
40 mg PO HS
ascorbic acid (vitamin C) [Vitamin C] 500 mg Tablet
500 mg PO BID
infliximab [Remicade] 100 mg Recon Soln
7.5 mg IV Q6W
Rx Instructions:
7.5 mg/kg
gabapentin 300 mg Capsule
300 mg PO QID@,,,
hydroxyzine pamoate 25 mg capsule
25 mg PO QID@,,,
duloxetine [Cymbalta] 30 mg Capsule,Delayed Release(Dr/Ec)
30 mg PO DAILY@0800
Rx Instructions:
take with 60mg
duloxetine [Cymbalta] 60 mg Capsule,Delayed Release(Dr/Ec)
60 mg PO DAILY@0800
Rx Instructions:
take with 30mg
melatonin 10 mg Tablet
10 mg PO HS@2300
oxycodone [OxyContin] 10 mg Tablet,Oral Only,Ext.Rel.12 Hr
10 mg PO HS@2300
vitamin A 3,000 mcg (10,000 unit) Capsule
3,000 mcg PO HS
therapeutic multivitamin Tablet
1 tab PO HS
hydromorphone 4 mg Tablet
4 mg PO Q4HPRN PRN (Reason: severe breakthrough pain)
Visbiome 112.5 billion cell capsule
2 cap PO DAILY Qty: 30 0RF
oxycodone 10 mg Tablet
10 mg PO HSPRN PRN (Reason: severe pain)
polyethylene glycol 3350 [Miralax] 17 gram Powder In Packet
17 g PO DAILYPRN PRN (Reason: constipation)
docusate sodium 100 mg Tablet
300 mg PO DAILYPRN PRN (Reason: constipation)
triamcinolone acetonide 0.1 % cream
1 applic TOPICAL BIDPRN PRN (Reason: rash)
Rx Instructions:
trunk
bisacodyl [Dulcolax (bisacodyl)] 5 mg Tablet,Delayed Release (Dr/Ec)
5 mg PO DAILYPRN PRN (Reason: constipation)
clindamycin in 5 % dextrose 600 mg/50 mL Piggyback
600 mg IV Q8H 14 Days Qty: 42 0RF
clindamycin HCl 300 mg capsule
600 mg PO TID Qty: 16 0RF
Referrals:
UNKNOWN - PT DOES,NOT KNOW [Unknown Provider]
Activity Restrictions/Additional Instructions:
Follow up with surface plate finisher as scheduled. Continue keflex.
Interventions
Interventions:
*Risk Screen - Suicide Last Done: 03/04/25 22:35
*General Assessment Last Done: 03/04/25 22:35
*Neglect/Abuse Screening Last Done: 03/04/25 22:35
*ED- Fall Risk Assessment Last Done: 03/04/25 22:35
*ED COVID-19 Vaccine History Last Done: 03/04/25 22:35
*Nursing Disposition Last Done: 03/05/25 02:15
ED- Neurological Assessment Last Done: 03/04/25 23:00
ED-Skin Assessment Last Done: 03/04/25 23:00
Discharge Date and Time
Discharge Date/Time: 03/05/25 02:15
Print Language: CITIZEN OF [place]
== END 2025-03-05 02:15 | disposition home or self-care (01) ==
LOC: EMR 22:20
PROVIDERS: EMERGENCY PHYSICIAN Emergency Medicine; FAMILY PHYSICIAN Physician Assistant Medical
DX: K12.2 Cellulitis and abscess of mouth (principal); F11.20 Opioid dependence, uncomplicated; G89.4 Chronic pain syndrome; F41.9 Anxiety disorder, unspecified; K58.9 Irritable bowel syndrome, unspecified; K90.0 Celiac disease
CPT/HCPCS: 99284; 96374; 70487; 80053; 85025; Q9967

== ENCOUNTER 2025-03-09 22:11 | Emergency (ER) | payer BC, SELFPAY ==
[2025-03-09 22:17] VITALS: BP 138/93
[2025-03-09 22:47] LABS: Hematocrit 36.1 % (37.0-47.0); Hemoglobin 12.1 g/dL (12.0-16.0); Mean Corp Hgb Conc. 33.5 g/dL (33.0-37.0); Mean Corpuscular Volume 77.8 fL (81.0-99.0); Nucleated Red Blood Cells % 0 %; Platelet Count 272 10^3/uL (130-400); Red Cell Dist. Width 14.1 % (11.5-14.5)
[2025-03-09 23:05] LABS: HCG, Serum Qualitative Screen Negative
[2025-03-09 23:09] LABS: ALT (SGPT) 30 U/L (0-35); AST (SGOT) 31 U/L (14-36); Albumin 4.2 g/dl (3.5-5.0); Alkaline Phosphatase 83 U/L (38-126); Blood Urea Nitrogen 16 mg/dl (7-17); Calcium 9.3 mg/dl (8.4-10.2); Carbon Dioxide 28 mmol/L (22-30); Chloride 102 mmol/L (98-107); Glucose 119 mg/dl (70-99); Potassium 4.4 mmol/L (3.5-5.1); Sodium 136 mmol/L (135-145); Total Protein 7.9 g/dl (6.3-8.2); eGFR > 60.00
[2025-03-10 02:15] VITALS: BP 106/78; BMI 27.3
[2025-03-10 05:15] VITALS: BP 142/74
--- NOTE | 2025-03-10 06:17 | ED.GENMED ---
History of Present Illness
<DO Walter Bess Last Filed: 03/11/25 18:03>
General
Chief Complaint: Dental Problem
Source: patient
Time Seen by Provider: 03/10/25 01:48
History of Present Illness
History of Present Illness:
30-year-old female presents to the emergency room complaining of pain in the right side of her face. Patient has had recent root canal. She was treated preprocedurally as well as posterior surgery with oral antibiotic. However patient states that
due to her immunocompromise state she has had frequent dental infections. She has required IV antibiotics in the past. Patient is known to Dr. Haley for infectious disease. Patient concerned that she is developing more serious infection on the
right side of her face because she has pain there. She has discomfort that travels up and down her jaw and neck. No fever. Patient denies any swelling. She states 'there is not much to look at'. Patient is able to swallow.
Past History
<Mehran Acosta DO - Last Filed: 03/11/25 18:03>
Past History
ED Past Medical History: Other (Crohn's disease, celiac, IBS, anxiety), Other (Recurrent dental infections/facial cellulitis-PICC line in place. She is scheduled) and Other (Chronic pain syndrome-narcotic dependent)
ED Past Surgical History: Orthopedic and Other (Bowel surgery)
Social History
Tobacco: Non-smoker
Alcohol: Occasional
Drug: None
Personal: Single (Engage)
Living: with family
Employment: Not employed
Family History
Family History: Other (her dads mother had Juvenile RA, mother has palpitations)
Phy Exam
<Mehran Acosta DO - Last Filed: 03/11/25 18:03>
Physical Exam
Physical Exam:
General: Awake, Alert, Oriented X3. No acute distress, anxious
Vitals: unremarkable
Head: Atraumatic
Eyes: Pupils equal, EOMI
Mouth\\face: No swelling noted about the right cheek jaw or submandibular region. There is no trismus. Temporary filling noted tooth that was worked on. No significant gingival swelling.
Throat: Airway intact, no exudates, no stridor
Neck: Trachea midline
Lungs: Clear and equal b/l
Heart: Regular rate, no murmurs
Neuro: Nonfocal
Skin: Warm, dry, no rash
Extremities: pulses equal b/l, no edema
Sepsis
<Mehran Acosta DO - Last Filed: 03/11/25 18:03>
Sepsis Screening
Sepsis Assessment: Sepsis Ruled Out
Sepsis Screen
Sepsis Screen: Sepsis Ruled Out
Date: 03/11/25
Time: 18:03
Course
<Mehran Thomas. DO Karla - Last Filed: 03/11/25 18:03>
Orders/Labs/Results
Orders:
Orders
03/09/25 22:21
Test Result ONCE
03/09/25 22:32
Complete Blood Count/With Diff Urgent
Comprehensive Metabolic Panel Urgent
HCG, Serum Qualitative Screen Urgent
Comment: Notify provider if positive test present
03/10/25 06:48
INFECTIOUS DISEASE CONSULT Urgent
Consulting Provider: Marli Morse
Was physician already notified: Yes
Abnormal Lab Results
03/09/25
22:32
Hct 36.1 L %
(37.0-47.0)
MCV 77.8 L fL
(81.0-99.0)
MCH 26.1 L pg
(27.0-31.0)
MPV 11.0 H fL
(7.4-10.4)
Eosinophils % 7.1 H %
(0-6)
Glucose 119 H mg/dl
(70-99)
03/09/25 22:32
03/09/25 22:32
Vital Signs
Initial and Last Documented VS:
Initial Vital Signs
Temp Pulse Resp BP Pulse Ox
97.9 F 103 18 138/93 97
03/09/25 22:17 03/09/25 22:17 03/09/25 22:17 03/09/25 22:17 03/09/25 22:17
Last Documented Vital Signs
Temp Pulse Resp BP Pulse Ox
98.3 F 93 17 114/84 95
03/10/25 13:00 03/10/25 13:00 03/10/25 13:00 03/10/25 13:00 03/10/25 13:00
<Arik Puente, DO - Last Filed: 03/10/25 13:02>
Orders/Labs/Results
Orders:
Orders
03/09/25 22:21
Test Result ONCE
03/09/25 22:32
Complete Blood Count/With Diff Urgent
Comprehensive Metabolic Panel Urgent
HCG, Serum Qualitative Screen Urgent
Comment: Notify provider if positive test present
03/10/25 06:48
INFECTIOUS DISEASE CONSULT Urgent
Consulting Provider: Marli Morse
Was physician already notified: Yes
Abnormal Lab Results
03/09/25
22:32
Hct 36.1 L %
(37.0-47.0)
MCV 77.8 L fL
(81.0-99.0)
MCH 26.1 L pg
(27.0-31.0)
MPV 11.0 H fL
(7.4-10.4)
Eosinophils % 7.1 H %
(0-6)
Glucose 119 H mg/dl
(70-99)
03/09/25 22:32
03/09/25 22:32
Vital Signs
Initial and Last Documented VS:
Initial Vital Signs
Temp Pulse Resp BP Pulse Ox
97.9 F 103 18 138/93 97
03/09/25 22:17 03/09/25 22:17 03/09/25 22:17 03/09/25 22:17 03/09/25 22:17
Last Documented Vital Signs
Temp Pulse Resp BP Pulse Ox
98.3 F 93 17 114/84 95
03/10/25 13:00 03/10/25 13:00 03/10/25 13:00 03/10/25 13:00 03/10/25 13:00
Billlt;Mehran Acosta DO - Last Filed: 03/11/25 18:03>
MDM/Problems Addressed
Differential Diagnosis Includes:
Postprocedural pain, dental infection, cellulitis
MDM/Problems Addressed:
After meeting with patient my initial thought was to obtain a CT of the face and neck to exclude developing abscess or cellulitis. Patient informing that she had a CAT scan just a couple days ago. I did review the CAT scan from March 05. There
is no acute abnormality noted on that CT. My physical exam does not suggest a serious infection, abscess or cellulitis. Patient's concern about spreading infection was primarily related to the way pain radiates. I feel is appropriate for her to
continue Keflex. After discussing my plan with the patient she indicated that she does not believe she can continue oral antibiotics due to the GI side effects in combination with her Crohn's disease. She became tearful and somewhat irritated
around the concept of continuing oral antibiotics. She feels like IV antibiotics need to be given to avoid the GI side effects. In addition she informing that she has multiple restorative procedures scheduled but will require antibiotics at that
she believes she should be treated with IV antibiotics through this process. From my standpoint the patient is stable for discharge at the question of how she should receive antibiotics for this restorative process is more of a infectious disease
issue. Patient seemed reluctant to be discharged without answering this question. I offered to allow her to stay in the emergency room until Dr. Reyes is rounding and perhaps she can provide her with some options.
<Mehran Acosta, DO - Last Filed: 03/11/25 18:03>
*Pulse Oximetry
SaO2: 96
Oxygen Mode of Delivery: Room air
Patient hypoxic: no
*Critical Care Note
Total Time (30-74mins, 75-104mins- exclusive of procedures): Not Applicable
<Arik Puente, DO - Last Filed: 03/10/25 13:02>
Update Note
Update Note:
1258 lengthy discussion with the patient. Also lengthy discussion with infectious disease. 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 Lengthy discussion with the patient who is here because she has
some pain near her right mandible. The patient is requesting IV antibiotics. Her exam is normal. There is no swelling. There is no gingival swelling. There is no trismus. There is no redness. There is no warmth. There is no palpable masses.
There is no lymphadenopathy. Her white count is normal. She has no left shift. There is no indication for IV antibiotics. Dr. Gomez states could consider cephalexin or other cephalosporin. The patient however does not want oral
antibiotics. The patient only concerns that she has infection because of pain near her right neck. However there is no exam findings consistent with progressive infection. Spent a long time advising on the dangers of excessive antibiotic use when
not indicated but patient is still not pleased. She essentially is requesting a PICC line for IV antibiotics. Infectious disease does not see any reason for this and I agree. The patient has a dental appointment on Wednesday. She will follow-up as
an outpatient.
ED Attending Note
<Mehran Acosta, DO - Last Filed: 03/11/25 18:03>
-
Portions of this chart may have been created with voice recognition software.� Occasional wrong word or��sound alike� substitutions may have occurred due to the inherent limitations of voice recognition software.
Discharge Plan
Departure
Patient Disposition: Home (Routine Discharge)
Date of Disposition: 03/10/25
Time of Disposition: 03:23
Patient with high blood pressure during this ER visit?: No
Condition: Good
Discharge Problem:
Pain, dental
Instructions: Dental Pain (DC)
Prescriptions:
No Action
oxycodone 10 mg Tablet
10 mg PO QID@08,12,17,21
clonazepam 1 mg Tablet
1 mg PO BID@1130,2300
fexofenadine 180 mg Tablet
360 mg PO HS
acetaminophen [Tylenol Extra Strength] 500 mg Tablet
1,000 mg PO Q6HPRN PRN (Reason: mild pain)
famotidine [Pepcid] 20 mg Tablet
40 mg PO HS
ascorbic acid (vitamin C) [Vitamin C] 500 mg Tablet
500 mg PO BID
infliximab [Remicade] 100 mg Recon Soln
7.5 mg IV Q6W
Rx Instructions:
7.5 mg/kg
gabapentin 300 mg Capsule
300 mg PO QID@,,,
hydroxyzine pamoate 25 mg capsule
25 mg PO QID@,,,
duloxetine [Cymbalta] 30 mg Capsule,Delayed Release(Dr/Ec)
30 mg PO DAILY@0800
Rx Instructions:
take with 60mg
duloxetine [Cymbalta] 60 mg Capsule,Delayed Release(Dr/Ec)
60 mg PO DAILY@0800
Rx Instructions:
take with 30mg
melatonin 10 mg Tablet
10 mg PO HS@2300
oxycodone [OxyContin] 10 mg Tablet,Oral Only,Ext.Rel.12 Hr
10 mg PO HS@2300
vitamin A 3,000 mcg (10,000 unit) Capsule
3,000 mcg PO HS
therapeutic multivitamin Tablet
1 tab PO HS
hydromorphone 4 mg Tablet
4 mg PO Q4HPRN PRN (Reason: severe breakthrough pain)
Visbiome 112.5 billion cell capsule
2 cap PO DAILY Qty: 30 0RF
oxycodone 10 mg Tablet
10 mg PO HSPRN PRN (Reason: severe pain)
polyethylene glycol 3350 [Miralax] 17 gram Powder In Packet
17 g PO DAILYPRN PRN (Reason: constipation)
docusate sodium 100 mg Tablet
300 mg PO DAILYPRN PRN (Reason: constipation)
triamcinolone acetonide 0.1 % cream
1 applic TOPICAL BIDPRN PRN (Reason: rash)
Rx Instructions:
trunk
bisacodyl [Dulcolax (bisacodyl)] 5 mg Tablet,Delayed Release (Dr/Ec)
5 mg PO DAILYPRN PRN (Reason: constipation)
clindamycin in 5 % dextrose 600 mg/50 mL Piggyback
600 mg IV Q8H 14 Days Qty: 42 0RF
clindamycin HCl 300 mg capsule
600 mg PO TID Qty: 16 0RF
Referrals:
Nadege Dyson PA [Family Provider, Family Practice]
Activity Restrictions/Additional Instructions:
Please see your dentist as planned on Wednesday. Return Milena for facial swelling, speech changes, fevers or any other concerns.
Interventions
Interventions:
*Risk Screen - Suicide Last Done: 03/09/25 22:17
*General Assessment Last Done: 03/10/25 02:15
*Neglect/Abuse Screening Last Done: 03/10/25 02:15
*ED- Fall Risk Assessment Last Done: 03/10/25 01:22
*ED COVID-19 Vaccine History Last Done: 03/10/25 01:22
*Nursing Disposition Last Done: 03/10/25 13:07
Discharge Date and Time
Discharge Date/Time: 03/10/25 13:08
Print Language: TURKMEN
[2025-03-10 06:56] VITALS: BP 99/69
[2025-03-10 09:00] VITALS: BP 92/58
[2025-03-10 11:00] VITALS: BP 103/68
[2025-03-10 13:00] VITALS: BP 114/84
== END 2025-03-10 13:08 | disposition home or self-care (01) ==
LOC: EMR 22:11
PROVIDERS: Emergency Medicine; CONSULT PHYSICIAN Student in an Organized Health Care Education/Training Program; EMERGENCY PHYSICIAN Emergency Medicine; FAMILY PHYSICIAN Physician Assistant Medical
DX: K08.89 Other specified disorders of teeth and supporting structures (principal); G89.4 Chronic pain syndrome; F11.20 Opioid dependence, uncomplicated
CPT/HCPCS: 99283; 80053; 84703; 85025

== ENCOUNTER 2025-03-15 14:45 | Emergency (ER) | payer BC, SELFPAY ==
[2025-03-15 14:48] VITALS: BP 122/87
[2025-03-15 15:15] LABS: Hematocrit 35.7 % (37.0-47.0); Hemoglobin 11.9 g/dL (12.0-16.0); Mean Corp Hgb Conc. 33.3 g/dL (33.0-37.0); Mean Corpuscular Volume 77.8 fL (81.0-99.0); Nucleated Red Blood Cells % 0 %; Platelet Count 295 10^3/uL (130-400); Red Cell Dist. Width 14.4 % (11.5-14.5)
[2025-03-15 15:19] LABS: HCG, Serum Qualitative Screen Negative
[2025-03-15 15:31] LABS: ALT (SGPT) 33 U/L (0-35); AST (SGOT) 35 U/L (14-36); Albumin 4.2 g/dl (3.5-5.0); Alkaline Phosphatase 84 U/L (38-126); Blood Urea Nitrogen 20 mg/dl (7-17); Calcium 9.1 mg/dl (8.4-10.2); Carbon Dioxide 24 mmol/L (22-30); Chloride 104 mmol/L (98-107); Glucose 104 mg/dl (70-99); Lipase 191 U/L (23-300); Potassium 4.3 mmol/L (3.5-5.1); Sodium 136 mmol/L (135-145); Total Protein 7.7 g/dl (6.3-8.2); eGFR > 60.00
--- NOTE | 2025-03-15 17:44 | ED.GENMED ---
History of Present Illness
General
Chief Complaint: Abdominal Pain
Source: patient
Exam Limitations: none
Time Seen by Provider: 03/15/25 17:25
Nursing documentation reviewed up to this point in time: agreed with
History of Present Illness
History of Present Illness:
Patient is a 30-year-old female who presents to the emergency department for evaluation of upper abdominal pain. She describes a sharp pain located in her upper abdomen radiating around to her right mid back. Pain initially began on Wednesday and was
intermittent however became constant at some point throughout the day yesterday. Pain does seem to be exacerbated by eating however she already follows a very bland diet at baseline including baked chicken and potatoes. She has not noticed a
decrease in her appetite.
There has not been any clear positional factor to pain. Prior to onset of pain�she does report a few days of constipation however has since been having regular bowel movements. No dysuria or hematuria. No fever or vomiting.
She denies any exertional chest pain or shortness of breath.
Patient did contact her GI doctor earlier today who recommended evaluation in the emergency department.
Past History
Past History
ED Past Medical History: Other (Crohn's disease, celiac, IBS, anxiety), Other (Recurrent dental infections/facial cellulitis-PICC line in place. She is scheduled) and Other (Chronic pain syndrome-narcotic dependent)
ED Past Surgical History: Orthopedic and Other (Bowel surgery)
Social History
Tobacco: Non-smoker
Alcohol: Occasional
Drug: None
Personal: Single (Engage)
Living: with family
Employment: Not employed
Family History
Family History: Other (her dads mother had Juvenile RA, mother has palpitations)
Review of Systems
Review of Systems
Allergies reviewed?: Yes
All Other Systems: ROS reviewed and negative except as documented in HPI and ROS
Phy Exam
Physical Exam
Physical Exam:
Vitals: Mildly tachycardic on arrival, improved by my assessment. Afebrile
General: Patient appears in no distress.
Skin: Warm and dry, no rashes or lesions
Head: Normocephalic, atraumatic
Eyes: Sclera nonicteric. EOMs intact. No nystagmus.
Throat: Protecting airway
Neck: Normal ROM, no cervical spine tenderness, no meningismus
Cardiac: Regular rate and rhythm, no murmurs.
Pulm: Normal respiratory effort, no wheezes, rales, rhonchi heard on exam
Abdomen: Abdomen soft. Mild tenderness in epigastric/right upper quadrant without rebound tenderness or guarding. Negative Tapia sign.
Extremities: No evidence of cyanosis or edema. 2+ palpable DP pulses bilaterally
Neuro: AAOx3. Grossly intact.
Psychiatric: Normal affect.
Course
Orders/Labs/Results
Orders:
Orders
03/15/25 14:52
Test Result ONCE
03/15/25 14:57
Beta Hcg Serum Qualitative Screen [HCG, Serum Qualitative Screen] Urgent
CBC/With Diff [Complete Blood Count/With Diff] Urgent
Comprehensive Metabolic Panel Urgent
Lipase Urgent
03/15/25 17:44
0.9% Sodium Chloride 1000 ml [Nss] 1,000 ml IV BOLUS
HYDROmorphone [Dilaudid] 0.5 mg IV NOW STA
Mag Hydrox/Al Hydrox/Simeth [Maalox] 30 ml Phenobarb/Hyoscy/Atropine/Scop [] 10 ml Viscous Lidocaine 2% [Xylocaine Viscous Cup] 10 ml PO NOW
US Abdomen Complete/Upper Urgent
Comment:
Reason For Exam: Right upper abdominal pain
03/15/25 18:43
Mag Hydrox/Al Hydrox/Simeth [Maalox] 30 ml .ROUTE .STK-MED ONE
Phenobarb/Hyoscy/Atropine/Scop [] 10 ml .ROUTE .STK-MED ONE
Viscous Lidocaine 2% [Xylocaine Viscous Cup] 15 ml .ROUTE .STK-MED ONE
Abnormal Lab Results
03/15/25
14:57
Hgb 11.9 L g/dL
(12.0-16.0)
Hct 35.7 L %
(37.0-47.0)
MCV 77.8 L fL
(81.0-99.0)
MCH 25.9 L pg
(27.0-31.0)
MPV 10.8 H fL
(7.4-10.4)
Absolute Eos (auto) 0.9 H 10^3/uL
(0-0.7)
Eosinophils % 9.9 H %
(0-6)
BUN 20 H mg/dl
(7-17)
Glucose 104 H mg/dl
(70-99)
03/15/25 14:57
03/15/25 14:57
Vital Signs
Initial and Last Documented VS:
Initial Vital Signs
Temp Pulse Resp BP Pulse Ox
98.4 F 109 16 122/87 96
03/15/25 14:48 03/15/25 14:48 03/15/25 14:48 03/15/25 14:48 03/15/25 14:48
Last Documented Vital Signs
Temp Pulse Resp BP Pulse Ox
98 F 90 16 100/70 100
03/15/25 20:33 03/15/25 20:33 03/15/25 14:48 03/15/25 19:13 03/15/25 20:33
MDM/Problems Addressed
Differential Diagnosis Includes:
Not limited to: Biliary colic, acute cholecystitis, choledocholithiasis, pancreatitis, GERD, gastritis,
MDM/Problems Addressed:
30-year-old female with three days of epigastric abdominal pain, somewhat post-prandial in nature. No associated fever, vomiting, chest pain, or shortness of breath. No new urinary symptoms or changes in bowel habits.
Patient mildly tachycardic on arrival however improved by my assessment. She is afebrile. Physical exam as above.
Differential as above.
Basic labs were sent in triage without clinically significant abnormalities. No leukocytosis. Chemistry unremarkable without any elevation in LFTs. Lipase is normal. Will check abdominal ultrasound, give IV fluids and treat pain. Patient does have
history of chronic pain disorders and takes scheduled narcotic medications daily. Will also give G.I. cocktail.
Update: Ultrasound without acute findings. No evidence of biliary tract obstruction or cholelithiasis. Her vital signs have normalized. Her pain has improved, although she was given a dose of IV pain medication.
Patient is afebrile with relatively benign abdominal exam � do not suspect acute infectious process. No findings on labs or imaging to suggest obstruction. Symptoms may be secondary to Gerd/gastritis. Given very low suspicion for acute
intra-abdominal process, do not feel additional imaging indicated at this time.
Her pain has improved and ultimately feel stable for discharge home with G.I. follow up outpatient and strict return precautions. Advised to continue PPI as directed and will send prescription for carafate. Patient and patient�s comfortable
with plan.
Chronic conditions affecting care:
N/A
Acute Exacerbation and/or Progression of Chronic Illness:
N/A
*Radiology
Radiology exam reviewed: radiology read reviewed
*Pulse Oximetry
SaO2: 96
Oxygen Mode of Delivery: Room air
Patient hypoxic: no
*EKG
Interpreted by ED Provider?: NA
*Refractory Technician Interpretation
Rate: Refractory Technician- N/A
*Critical Care Note
Total Time (30-74mins, 75-104mins- exclusive of procedures): Not Applicable
ED Attending Note
-
Portions of this chart may have been created with voice recognition software.� Occasional wrong word or��sound alike� substitutions may have occurred due to the inherent limitations of voice recognition software.
Discharge Plan
Departure
Patient Disposition: Home (Routine Discharge)
Date of Disposition: 03/15/25
Time of Disposition: 19:42
Patient with high blood pressure during this ER visit?: Yes
Condition: Good
Discharge Problem:
Abdominal pain
Instructions: Abdominal Pain
Prescriptions:
New
sucralfate [Carafate] 1 gram tablet
See Rx Instructions .ROUTE .COMPLEX Qty: 30 0RF
Rx Instructions:
1 g orally ;Take 1 tablet PO 1hr before each meal and 1 tablet 1 hr prior to bed
No Action
oxycodone 10 mg Tablet
10 mg PO QID@08,12,17,21
clonazepam 1 mg Tablet
1 mg PO BID@1130,2300
fexofenadine 180 mg Tablet
360 mg PO HS
acetaminophen [Tylenol Extra Strength] 500 mg Tablet
1,000 mg PO Q6HPRN PRN (Reason: mild pain)
famotidine [Pepcid] 20 mg Tablet
40 mg PO HS
ascorbic acid (vitamin C) [Vitamin C] 500 mg Tablet
500 mg PO BID
infliximab [Remicade] 100 mg Recon Soln
7.5 mg IV Q6W
Rx Instructions:
7.5 mg/kg
gabapentin 300 mg Capsule
300 mg PO QID@08,,18,22
hydroxyzine pamoate 25 mg capsule
25 mg PO QID@08,,18,22
duloxetine [Cymbalta] 30 mg Capsule,Delayed Release(Dr/Ec)
30 mg PO DAILY@0800
Rx Instructions:
take with 60mg
duloxetine [Cymbalta] 60 mg Capsule,Delayed Release(Dr/Ec)
60 mg PO DAILY@0800
Rx Instructions:
take with 30mg
melatonin 10 mg Tablet
10 mg PO HS@2300
oxycodone [OxyContin] 10 mg Tablet,Oral Only,Ext.Rel.12 Hr
10 mg PO HS@2300
vitamin A 3,000 mcg (10,000 unit) Capsule
3,000 mcg PO HS
therapeutic multivitamin Tablet
1 tab PO HS
hydromorphone 4 mg Tablet
4 mg PO Q4HPRN PRN (Reason: severe breakthrough pain)
Visbiome 112.5 billion cell capsule
2 cap PO DAILY Qty: 30 0RF
oxycodone 10 mg Tablet
10 mg PO HSPRN PRN (Reason: severe pain)
polyethylene glycol 3350 [Miralax] 17 gram Powder In Packet
17 g PO DAILYPRN PRN (Reason: constipation)
docusate sodium 100 mg Tablet
300 mg PO DAILYPRN PRN (Reason: constipation)
triamcinolone acetonide 0.1 % cream
1 applic TOPICAL BIDPRN PRN (Reason: rash)
Rx Instructions:
trunk
bisacodyl [Dulcolax (bisacodyl)] 5 mg Tablet,Delayed Release (Dr/Ec)
5 mg PO DAILYPRN PRN (Reason: constipation)
clindamycin in 5 % dextrose 600 mg/50 mL Piggyback
600 mg IV Q8H 14 Days Qty: 42 0RF
clindamycin HCl 300 mg capsule
600 mg PO TID Qty: 16 0RF
Referrals:
Nadege Dyson PA [Family Provider, Family Practice] - Follow up in 5-7 days
Shante Garcia MD [Active, Gastroenterology]
Activity Restrictions/Additional Instructions:
RETURN TO THE EMERGENCY DEPARTMENT ANY FEVER, INTRACTABLE NAUSEA/VOMITING, WORSENING ABDOMINAL PAIN, SIGNS OF SEVERE DEHYDRATION, WORSENING CURRENT SYMPTOMS, OR ANY OTHER CONCERNS
- As discussed�your lab work and abdominal ultrasound showed no acute abnormalities. You were given IV pain medication, a GI cocktail, and 1 L of IV fluids
- Please continue to take your Pepcid at home. I have sent a prescription to your pharmacy for Carafate which you can take as directed. I would follow a bland diet. Is important to stay well-hydrated. Continue to avoid all NSAIDs. Take pain
medications as prescribed.
- Please follow-up with your GI doctor for further evaluation/management. You may require endoscopy if symptoms persist
Monitor your symptoms closely and return to the emergency department with any acute worsening/new symptoms or any other concerns
Interventions
Interventions:
*Risk Screen - Suicide Last Done: 03/15/25 14:48
*General Assessment Last Done: 03/15/25 18:53
*Neglect/Abuse Screening Last Done: 03/15/25 14:48
*ED- Fall Risk Assessment Last Done: 03/15/25 18:53
*ED COVID-19 Vaccine History Last Done: 03/15/25 18:53
*Nursing Disposition Last Done: 03/15/25 20:33
HF-Nmjzdc-Qjlkznqfnq Assessment Last Done: 03/15/25 18:52
Discharge Date and Time
Print Language: BULGARIAN
[2025-03-15] MEDS: MAALOX 50 PO (18:44)
[2025-03-15] MEDS: DILAUDID 0.5 MG IV (18:45)
[2025-03-15] MEDS: NSS 1000 IV (18:46)
[2025-03-15 18:50] VITALS: BP 105/74
[2025-03-15 19:00] VITALS: BP 100/70
[2025-03-15 19:13] VITALS: BP 100/70
== END 2025-03-15 20:33 | disposition home or self-care (01) ==
LOC: EMR 14:45
PROVIDERS: Student in an Organized Health Care Education/Training Program; EMERGENCY PHYSICIAN Emergency Medicine; FAMILY PHYSICIAN Physician Assistant Medical
DX: R10.10 Upper abdominal pain, unspecified (principal); G89.4 Chronic pain syndrome; F11.20 Opioid dependence, uncomplicated; K50.90 Crohn's disease, unspecified, without complications
CPT/HCPCS: 96374; 96361; 99284; 76700; 80053; 83690; 84703; 85025

== ENCOUNTER 2025-03-17 18:40 | Emergency (ER) | payer BC, SELFPAY ==
[2025-03-17 18:49] VITALS: BP 116/85
[2025-03-17 20:32] LABS: Hematocrit 35.2 % (37.0-47.0); Hemoglobin 11.5 g/dL (12.0-16.0); Mean Corp Hgb Conc. 32.7 g/dL (33.0-37.0); Mean Corpuscular Volume 76.4 fL (81.0-99.0); Nucleated Red Blood Cells % 0 %; Platelet Count 274 10^3/uL (130-400); Red Cell Dist. Width 14.2 % (11.5-14.5)
[2025-03-17] MEDS: DILAUDID 1 MG IV (21:00)
[2025-03-17] MEDS: OMNIPAQUE 50 ML PO (21:00)
[2025-03-17] MEDS: NSS 1000 IV (21:00)
[2025-03-17 21:02] LABS: ALT (SGPT) 42 U/L (0-35); AST (SGOT) 36 U/L (14-36); Albumin 4.1 g/dl (3.5-5.0); Alkaline Phosphatase 93 U/L (38-126); Blood Urea Nitrogen 20 mg/dl (7-17); Calcium 8.8 mg/dl (8.4-10.2); Carbon Dioxide 25 mmol/L (22-30); Chloride 105 mmol/L (98-107); Glucose 93 mg/dl (70-99); Lipase 147 U/L (23-300); Potassium 4.3 mmol/L (3.5-5.1); Sodium 136 mmol/L (135-145); Total Protein 7.7 g/dl (6.3-8.2); eGFR > 60.00
[2025-03-17] MEDS: PHENERGAN 51 MG IV (21:26)
[2025-03-17 21:29] LABS: Urine Character Clear (Clear)
[2025-03-17 21:30] VITALS: BP 101/65
[2025-03-17 21:35] LABS: Urine Red Blood Cell 0-2 /HPF (0-2); Urine Squamous Cell >30 /LPF (Few); Urine White Cell 0-2 /HPF (0-5)
--- NOTE | 2025-03-17 21:50 | ED.GENMED ---
Addendum entered and electronically signed by Evelyn Trujillo DO 03/19/25 07:22:
00:35
CAT scan shows moderate constipation. No bowel wall thickening nor obstruction nor abscess nor free air. Normal appendix. Mild prominence of bilateral renal collecting systems, right slightly more than left but overall similar to prior exams.
Mild diffuse bladder wall thickening recommending correlation with urinalysis for potential cystitis.
Urinalysis shows moderate bacteria but only 0-2 WBCs and greater than 30 squamous epithelial cells consistent with contamination. Not consistent with UTI.
Inflammatory markers reassuring with CRP less than 5, sed rate 28.
Encouraged initiation of bowel regimen, stool softeners, MiraLAX and to continue on a daily basis.
Follow-up with station air traffic control specialist for recheck.
Original Note:
History of Present Illness
General
Chief Complaint: Abdominal Pain
Time Seen by Provider: 03/17/25 20:26
Nursing documentation reviewed up to this point in time: agreed with
History of Present Illness
History of Present Illness:
30-year-old female presents to the ER for further evaluation of severe abdominal pain now associated with nausea and vomiting in the past 24 hours. Patient does have a prior history of Crohn's disease and typically receives infusions of Remicade at
her gastroenterology office-she was due for a dose yesterday, however given pain this was held. Patient denies any fevers. She states that throughout the week she has been having upper abdominal discomfort which has been waxing and waning in
intensity however becoming more persistent and severe. Patient does take 10 mg of oxycodone 5 times daily and this has not helped with her pain at all. She was feeling constipated earlier in the week but has been using Dulcolax-she was able to
have a small bowel movement earlier today. She had multiple episodes of emesis and reports the pain to be severe. She denies fevers. She has been off and on antibiotics multiple times this summer due to recurrent dental infections. Patient had
been seen in this emergency department 2 days ago and had screening labs and an abdominal ultrasound which were unremarkable.
Past History
Past History
ED Past Medical History: Other (Crohn's disease, celiac, IBS, anxiety), Other (Recurrent dental infections/facial cellulitis-PICC line in place. She is scheduled) and Other (Chronic pain syndrome-narcotic dependent)
ED Past Surgical History: Orthopedic and Other (Bowel surgery)
Social History
Tobacco: Non-smoker
Alcohol: Occasional
Drug: None
Personal: Single (Engage)
Living: with family
Employment: Not employed
Family History
Family History: Other (her dads mother had Juvenile RA, mother has palpitations)
Review of Systems
Review of Systems
Allergies reviewed?: Yes
Phy Exam
Physical Exam
Physical Exam:
Patient is awake, alert, writhing in the time of evaluation, head is NCAT, PERRL, EOMI mucous membranes moist, conjunctiva pink, heart tachycardic regular rate and rhythm without murmurs or ectopy, lungs are clear to auscultation without wheezes
rales or rhonchi, no JVD, abdomen is soft with moderate pain on palpation across the upper abdomen, no guarding or rebound, normoactive bowel sounds heard throughout, no palpable hernias,, extremities without edema, GCS is 15
Course
Orders/Labs/Results
Orders:
Orders
03/17/25 20:19
IV Insert/Care/Rem.- Treatment PRN
03/17/25 20:23
Complete Blood Count/With Diff Urgent
Comprehensive Metabolic Panel Urgent
Lipase Urgent
03/17/25 20:39
0.9% Sodium Chloride 1000 ml [Nss] 1,000 ml IV BOLUS
HYDROmorphone [Dilaudid] 1 mg IV NOW STA
Iohexol [Omnipaque] See Protocol PO NOW STA
03/17/25 20:40
CT Abd/pel W Iv And Oral Contr Urgent
Comment:
Reason For Exam: upper abdominal pain, h/o chrons
03/17/25 20:58
Promethazine [Phenergan] 25 mg 0.9% Sodium Chloride 50 ml [Nss] 50 ml IV NOW
03/17/25 21:22
HCG, Urine Qualitative Screen Urgent
Date Specimen was Collected: 03/17/25
Time Specimen was Collected: 21:15
Comment: ADD ON
Urinalysis Reflex To Culture Urgent
Date Specimen was Collected: 03/17/25
Time Specimen was Collected: 21:15
Urine Microscopic Reflex Cult Urgent
Urine Culture Urgent
DESIRE Source: U
Specimen Description:
Date Specimen was Collected: 03/17/25
Time Specimen was Collected: 21:15
03/17/25 21:33
, Urine Qualitative Screen [HCG, Urine Qualitative Screen] Urgent
03/17/25 21:34
Test Result ONCE
03/17/25 21:48
Add On- LAB Urgent
Comments:: urine hcg
Tests Added?: urine hcg
03/17/25 21:49
Add On- LAB Urgent
Tests Added?: u preg
Abnormal Lab Results
03/17/25 03/17/25
20:23 21:22
Hgb 11.5 L g/dL
(12.0-16.0)
Hct 35.2 L %
(37.0-47.0)
MCV 76.4 L fL
(81.0-99.0)
MCH 24.9 L pg
(27.0-31.0)
MCHC 32.7 L g/dL
(33.0-37.0)
MPV 10.9 H fL
(7.4-10.4)
Eosinophils % 8.2 H %
(0-6)
BUN 20 H mg/dl
(7-17)
ALT 42 H U/L
(0-35)
Urine Bacteria (Reflex) Moderate A
(Negative)
Urine Albumin (Reflex) 1+ A
(Neg - Trace)
03/17/25 20:23
03/17/25 20:23
White blood count reassuring at 8.8, hemoglobin also stable compared to prior labs from 03/15/2025.Nonspecific elevation of ALT only, kidney function preserved, urinalysis without infection
Vital Signs
Initial and Last Documented VS:
Initial Vital Signs
Temp Pulse Resp BP Pulse Ox
98.6 F 124 18 116/85 96
03/17/25 18:49 03/17/25 18:49 03/17/25 18:49 03/17/25 18:49 03/17/25 18:49
Last Documented Vital Signs
Temp Pulse Resp BP Pulse Ox
98.6 F 124 18 99/66 99
03/17/25 18:49 03/17/25 18:49 03/17/25 18:49 03/17/25 22:00 03/17/25 22:30
MDM/Problems Addressed
Differential Diagnosis Includes:
Differential diagnosis considered but not limited to exacerbation Crohn's colitis, gastroenteritis, nonspecific abdominal pain, constipation along with other etiologies considered
Chronic conditions affecting care:
Crohn's disease on chronic immunosuppressive medication, recent frequent antibiotic usage, chronic narcotic usage
*Pulse Oximetry
SaO2: 96
Oxygen Mode of Delivery: Room air
Patient hypoxic: no
*Critical Care Note
Total Time (30-74mins, 75-104mins- exclusive of procedures): Not Applicable
Update Note
Update Note:
Pain controlled with medications administered. Awaiting CT scan for disposition plan. Full pt care transferred to Dr Trujillo at end of my shift for dispo pending CT results.
ED Attending Note
-
Portions of this chart may have been created with voice recognition software.� Occasional wrong word or��sound alike� substitutions may have occurred due to the inherent limitations of voice recognition software.
Discharge Plan
Departure
Prescriptions:
No Action
oxycodone 10 mg Tablet
10 mg PO QID@08,12,17,21
clonazepam 1 mg Tablet
1 mg PO BID@1130,2300
fexofenadine 180 mg Tablet
360 mg PO HS
acetaminophen [Tylenol Extra Strength] 500 mg Tablet
1,000 mg PO Q6HPRN PRN (Reason: mild pain)
famotidine [Pepcid] 20 mg Tablet
40 mg PO HS
ascorbic acid (vitamin C) [Vitamin C] 500 mg Tablet
500 mg PO BID
infliximab [Remicade] 100 mg Recon Soln
7.5 mg IV Q6W
Rx Instructions:
7.5 mg/kg
gabapentin 300 mg Capsule
300 mg PO QID@08,,,
hydroxyzine pamoate 25 mg capsule
25 mg PO QID@,,,
duloxetine [Cymbalta] 30 mg Capsule,Delayed Release(Dr/Ec)
30 mg PO DAILY@0800
Rx Instructions:
take with 60mg
duloxetine [Cymbalta] 60 mg Capsule,Delayed Release(Dr/Ec)
60 mg PO DAILY@0800
Rx Instructions:
take with 30mg
melatonin 10 mg Tablet
10 mg PO HS@2300
oxycodone [OxyContin] 10 mg Tablet,Oral Only,Ext.Rel.12 Hr
10 mg PO HS@2300
vitamin A 3,000 mcg (10,000 unit) Capsule
3,000 mcg PO HS
therapeutic multivitamin Tablet
1 tab PO HS
hydromorphone 4 mg Tablet
4 mg PO Q4HPRN PRN (Reason: severe breakthrough pain)
Visbiome 112.5 billion cell capsule
2 cap PO DAILY Qty: 30 0RF
oxycodone 10 mg Tablet
10 mg PO HSPRN PRN (Reason: severe pain)
polyethylene glycol 3350 [Miralax] 17 gram Powder In Packet
17 g PO DAILYPRN PRN (Reason: constipation)
docusate sodium 100 mg Tablet
300 mg PO DAILYPRN PRN (Reason: constipation)
triamcinolone acetonide 0.1 % cream
1 applic TOPICAL BIDPRN PRN (Reason: rash)
Rx Instructions:
trunk
bisacodyl [Dulcolax (bisacodyl)] 5 mg Tablet,Delayed Release (Dr/Ec)
5 mg PO DAILYPRN PRN (Reason: constipation)
clindamycin in 5 % dextrose 600 mg/50 mL Piggyback
600 mg IV Q8H 14 Days Qty: 42 0RF
clindamycin HCl 300 mg capsule
600 mg PO TID Qty: 16 0RF
sucralfate [Carafate] 1 gram tablet
See Rx Instructions .ROUTE .COMPLEX Qty: 30 0RF
Rx Instructions:
1 g orally ;Take 1 tablet PO 1hr before each meal and 1 tablet 1 hr prior to bed
Referrals:
Nadege Dyson PA [Family Provider, Family Practice]
Interventions
Interventions:
*Risk Screen - Suicide Last Done: 03/17/25 18:49
*General Assessment Last Done: 03/17/25 18:49
*ED- Fall Risk Assessment Last Done: 03/17/25 18:49
*ED COVID-19 Vaccine History Last Done: 03/17/25 18:49
LX-Ghlqpn-Tyeeupfbis Assessment Last Done: 03/17/25 21:00
Discharge Date and Time
Print Language: TELUGU
[2025-03-17 22:00] VITALS: BP 99/66
[2025-03-17 22:14] LABS: HCG, Urine Qualitative Screen Negative
[2025-03-17] MEDS: DILAUDID 0.5 MG IV (23:32)
[2025-03-18 00:02] LABS: C-Reactive Protein < 5.00 mg/L (0.0-10.00)
--- NOTE | 2025-03-18 00:33 | ED.GENMED ---
History of Present Illness
General
Chief Complaint: Abdominal Pain
Time Seen by Provider: 03/17/25 20:26
Past History
Past History
ED Past Medical History: Other (Crohn's disease, celiac, IBS, anxiety), Other (Recurrent dental infections/facial cellulitis-PICC line in place. She is scheduled) and Other (Chronic pain syndrome-narcotic dependent)
ED Past Surgical History: Orthopedic and Other (Bowel surgery)
Social History
Tobacco: Non-smoker
Alcohol: Occasional
Drug: None
Personal: Single (Engage)
Living: with family
Employment: Not employed
Family History
Family History: Other (her dads mother had Juvenile RA, mother has palpitations)
Course
Orders/Labs/Results
Orders:
Orders
03/17/25 20:19
IV Insert/Care/Rem.- Treatment PRN
03/17/25 20:23
C-Reactive Protein Urgent
Comment: ADD ON
Complete Blood Count/With Diff Urgent
Comprehensive Metabolic Panel Urgent
Erythrocyte Sed Rate Urgent
Comment: ADD ON
Lipase Urgent
03/17/25 20:39
0.9% Sodium Chloride 1000 ml [Nss] 1,000 ml IV BOLUS
HYDROmorphone [Dilaudid] 1 mg IV NOW STA
Iohexol [Omnipaque] See Protocol PO NOW STA
03/17/25 20:40
CT Abd/pel W Iv And Oral Contr Urgent
Comment:
Reason For Exam: upper abdominal pain, h/o chrons
03/17/25 20:58
Promethazine [Phenergan] 25 mg 0.9% Sodium Chloride 50 ml [Nss] 50 ml IV NOW
03/17/25 21:22
HCG, Urine Qualitative Screen Urgent
Date Specimen was Collected: 03/17/25
Time Specimen was Collected: 21:15
Comment: ADD ON
Urinalysis Reflex To Culture Urgent
Date Specimen was Collected: 03/17/25
Time Specimen was Collected: 21:15
Urine Microscopic Reflex Cult Urgent
Urine Culture Urgent
DESIRE Source: U
Specimen Description:
Date Specimen was Collected: 03/17/25
Time Specimen was Collected: 21:15
03/17/25 21:34
Test Result ONCE
03/17/25 21:48
Add On- LAB Urgent
Comments:: urine hcg
Tests Added?: urine hcg
03/17/25 21:49
Add On- LAB Urgent
Tests Added?: u preg
03/17/25 23:22
Add On- LAB Urgent
Tests Added?: sed rate, CRP
03/17/25 23:30
HYDROmorphone [Dilaudid] 0.5 mg .ROUTE .STK-MED ONE
03/17/25 23:32
HYDROmorphone [Dilaudid] 0.5 mg IV NOW STA
03/18/25 00:58
Magnesium Citrate [Citroma] 300 ml .ROUTE .STK-MED ONE
03/18/25 00:59
Magnesium Citrate [Citroma] 300 ml PO ONCE ONE
Abnormal Lab Results
03/17/25 03/17/25
20:23 21:22
Hgb 11.5 L g/dL
(12.0-16.0)
Hct 35.2 L %
(37.0-47.0)
MCV 76.4 L fL
(81.0-99.0)
MCH 24.9 L pg
(27.0-31.0)
MCHC 32.7 L g/dL
(33.0-37.0)
MPV 10.9 H fL
(7.4-10.4)
Eosinophils % 8.2 H %
(0-6)
ESR 28 H mm/hour
(0-20)
BUN 20 H mg/dl
(7-17)
ALT 42 H U/L
(0-35)
Urine Bacteria (Reflex) Moderate A
(Negative)
Urine Albumin (Reflex) 1+ A
(Neg - Trace)
03/17/25 20:23
03/17/25 20:23
Vital Signs
Initial and Last Documented VS:
Initial Vital Signs
Temp Pulse Resp BP Pulse Ox
98.6 F 124 18 116/85 96
03/17/25 18:49 03/17/25 18:49 03/17/25 18:49 03/17/25 18:49 03/17/25 18:49
Last Documented Vital Signs
Temp Pulse Resp BP Pulse Ox
98.6 F 124 18 99/66 99
03/17/25 18:49 03/17/25 18:49 03/17/25 18:49 03/17/25 22:00 03/18/25 00:37
*Radiology
Radiology exam reviewed: radiology read reviewed (CAT scan shows moderate stool-filled colon. No bowel wall thickening nor obstruction, no abscess nor free air. Normal appendix. Mild prominence of bilateral renal collecting systems, similar to
previous exams.)
*Pulse Oximetry
SaO2: 99
Oxygen Mode of Delivery: Room air
Patient hypoxic: no
*Critical Care Note
Total Time (30-74mins, 75-104mins- exclusive of procedures): Not Applicable
Update Note
Update Note:
00:35
CAT scan shows moderate constipation. No bowel wall thickening nor obstruction nor abscess nor free air. Normal appendix. Mild prominence of bilateral renal collecting systems, right slightly more than left but overall similar to prior exams.
Mild diffuse bladder wall thickening recommending correlation with urinalysis for potential cystitis.
Urinalysis shows moderate bacteria but only 0-2 WBCs and greater than 30 squamous epithelial cells consistent with contamination. Not consistent with UTI.
Inflammatory markers reassuring with CRP less than 5, sed rate 28.
Encouraged initiation of bowel regimen, stool softeners, MiraLAX and to continue on a daily basis.
Follow-up with microfilm clerk for recheck.
ED Attending Note
-
Portions of this chart may have been created with voice recognition software.� Occasional wrong word or��sound alike� substitutions may have occurred due to the inherent limitations of voice recognition software.
Discharge Plan
Departure
Patient Disposition: Home (Routine Discharge)
Date of Disposition: 03/18/25
Time of Disposition: 00:35
Patient with high blood pressure during this ER visit?: No
Condition: Good
Discharge Problem:
Constipation by delayed colonic transit
Instructions: Constipation, Adult (DC)
Prescriptions:
No Action
oxycodone 10 mg Tablet
10 mg PO QID@08,12,17,21
clonazepam 1 mg Tablet
1 mg PO BID@1130,2300
fexofenadine 180 mg Tablet
360 mg PO HS
acetaminophen [Tylenol Extra Strength] 500 mg Tablet
1,000 mg PO Q6HPRN PRN (Reason: mild pain)
famotidine [Pepcid] 20 mg Tablet
40 mg PO HS
ascorbic acid (vitamin C) [Vitamin C] 500 mg Tablet
500 mg PO BID
infliximab [Remicade] 100 mg Recon Soln
7.5 mg IV Q6W
Rx Instructions:
7.5 mg/kg
gabapentin 300 mg Capsule
300 mg PO QID@,,,
hydroxyzine pamoate 25 mg capsule
25 mg PO QID@,,,
duloxetine [Cymbalta] 30 mg Capsule,Delayed Release(Dr/Ec)
30 mg PO DAILY@0800
Rx Instructions:
take with 60mg
duloxetine [Cymbalta] 60 mg Capsule,Delayed Release(Dr/Ec)
60 mg PO DAILY@0800
Rx Instructions:
take with 30mg
melatonin 10 mg Tablet
10 mg PO HS@2300
oxycodone [OxyContin] 10 mg Tablet,Oral Only,Ext.Rel.12 Hr
10 mg PO HS@2300
vitamin A 3,000 mcg (10,000 unit) Capsule
3,000 mcg PO HS
therapeutic multivitamin Tablet
1 tab PO HS
hydromorphone 4 mg Tablet
4 mg PO Q4HPRN PRN (Reason: severe breakthrough pain)
Visbiome 112.5 billion cell capsule
2 cap PO DAILY Qty: 30 0RF
oxycodone 10 mg Tablet
10 mg PO HSPRN PRN (Reason: severe pain)
polyethylene glycol 3350 [Miralax] 17 gram Powder In Packet
17 g PO DAILYPRN PRN (Reason: constipation)
docusate sodium 100 mg Tablet
300 mg PO DAILYPRN PRN (Reason: constipation)
triamcinolone acetonide 0.1 % cream
1 applic TOPICAL BIDPRN PRN (Reason: rash)
Rx Instructions:
trunk
bisacodyl [Dulcolax (bisacodyl)] 5 mg Tablet,Delayed Release (Dr/Ec)
5 mg PO DAILYPRN PRN (Reason: constipation)
clindamycin in 5 % dextrose 600 mg/50 mL Piggyback
600 mg IV Q8H 14 Days Qty: 42 0RF
clindamycin HCl 300 mg capsule
600 mg PO TID Qty: 16 0RF
sucralfate [Carafate] 1 gram tablet
See Rx Instructions .ROUTE .COMPLEX Qty: 30 0RF
Rx Instructions:
1 g orally ;Take 1 tablet PO 1hr before each meal and 1 tablet 1 hr prior to bed
Referrals:
Nadege Dyson PA [Family Provider, Family Practice] - Call in 1-3 days for appt
Interventions
Interventions:
*Risk Screen - Suicide Last Done: 03/17/25 18:49
*General Assessment Last Done: 03/17/25 18:49
*ED- Fall Risk Assessment Last Done: 03/17/25 18:49
*ED COVID-19 Vaccine History Last Done: 03/17/25 18:49
*Nursing Disposition Last Done: 03/18/25 01:06
PG-Vbcmhj-Igzdxggcgs Assessment Last Done: 03/17/25 21:00
Discharge Date and Time
Discharge Date/Time: 03/18/25 01:07
Print Language: CROATIAN
[2025-03-18] MEDS: CITROMA 300 ML PO (01:00)
== END 2025-03-18 01:07 | disposition home or self-care (01) ==
LOC: EMR 18:40
PROVIDERS: EMERGENCY PHYSICIAN Emergency Medicine; FAMILY PHYSICIAN Physician Assistant Medical
DX: K59.00 Constipation, unspecified (principal); K50.90 Crohn's disease, unspecified, without complications; F41.9 Anxiety disorder, unspecified; G89.4 Chronic pain syndrome; F11.20 Opioid dependence, uncomplicated
CPT/HCPCS: 99284; 96365; 96375; 96376; 74177; 80053; 81003; 81015; 81025; 83690; 85025; 85652; 86140; 87086; Q9967

== ENCOUNTER 2025-03-30 20:06 | Emergency (ER) | payer OTHER, SELFPAY ==
[2025-03-30 20:09] VITALS: BP 121/81
[2025-03-30 20:38] VITALS: BMI 27.3
[2025-03-30 20:41] VITALS: BP 106/74
[2025-03-30 21:00] VITALS: BP 103/72
[2025-03-30 21:06] LABS: Hematocrit 35.4 % (37.0-47.0); Hemoglobin 11.6 g/dL (12.0-16.0); Mean Corp Hgb Conc. 32.8 g/dL (33.0-37.0); Mean Corpuscular Volume 77.3 fL (81.0-99.0); Nucleated Red Blood Cells % 0 %; Platelet Count 276 10^3/uL (130-400); Red Cell Dist. Width 15.5 % (11.5-14.5)
[2025-03-30 21:21] LABS: ALT (SGPT) 27 U/L (0-35); AST (SGOT) 27 U/L (14-36); Albumin 4.2 g/dl (3.5-5.0); Alkaline Phosphatase 88 U/L (38-126); Blood Urea Nitrogen 19 mg/dl (7-17); Calcium 8.6 mg/dl (8.4-10.2); Carbon Dioxide 29 mmol/L (22-30); Chloride 102 mmol/L (98-107); Estimated Creatinine Clearance 90 ml/min; Glucose 90 mg/dl (70-99); Potassium 4.1 mmol/L (3.5-5.1); Sodium 138 mmol/L (135-145); Total Protein 7.8 g/dl (6.3-8.2); eGFR > 60.00
[2025-03-30] MEDS: DILAUDID 4 MG PO (21:29)
--- NOTE | 2025-03-30 21:47 | ED.GENMED ---
History of Present Illness
General
Chief Complaint: Dental Problem
Time Seen by Provider: 03/30/25 20:47
History of Present Illness
History of Present Illness:
30-year-old female with lengthy history of chronic dental infections as well as Crohn's disease and anxiety/OCD presents to the emergency department complaining of right lower dental pain. She underwent a root canal 2 tooth 30 on Wednesday and
developed pain this morning thus contacted her outreach professional office and a prescription for azithromycin was sent. She states she took the first dose of 500 mg and immediately developed heartburn and abdominal pain concerning her for a Crohn's flareup
thus came to the emergency department. She is requesting IV antibiotics due to her multiple drug allergies and intolerances due to Crohn's. She has numerous recent hospitalizations for similar issues. She denies any fevers. She states to me that
'the infection is too deep for you to see' and is also requesting IV pain medications while in the ED.
Past History
Past History
ED Past Medical History: Other (Crohn's disease, celiac, IBS, anxiety), Other (Recurrent dental infections/facial cellulitis-PICC line in place. She is scheduled) and Other (Chronic pain syndrome-narcotic dependent)
ED Past Surgical History: Orthopedic and Other (Bowel surgery)
Social History
Tobacco: Non-smoker
Alcohol: Occasional
Drug: None
Personal: Single (Engage)
Living: with family
Employment: Not employed
Family History
Family History: Other (her dads mother had Juvenile RA, mother has palpitations)
Review of Systems
Review of Systems
Allergies reviewed?: Yes
All Other Systems: ROS reviewed and negative except as documented in HPI and ROS
Phy Exam
Physical Exam
Physical Exam:
GEN: Well appearing, NAD, WDWN
HEENT: Oral mucosa moist, no scleral icterus. No obvious gingival erythema or fluctuant dental abscess to the right lower mandibular teeth, no trismus, no palpable cervical adenopathy bilaterally
Cardiac: Regular rate
Lung: No respiratory distress, no tachypnea
MSK: No gross deformity or injuries
Skin: Good color, no pallor or jaundice, no rashes
Neuro: AO x3, moves all extremities freely
Psych: Calm, cooperative
Course
Orders/Labs/Results
Orders:
Orders
03/30/25 21:00
Complete Blood Count/With Diff Urgent
Comprehensive Metabolic Panel Urgent
03/30/25 21:25
HYDROmorphone [Dilaudid] 4 mg PO NOW STA
Abnormal Lab Results
03/30/25
21:00
Hgb 11.6 L g/dL
(12.0-16.0)
Hct 35.4 L %
(37.0-47.0)
MCV 77.3 L fL
(81.0-99.0)
MCH 25.3 L pg
(27.0-31.0)
MCHC 32.8 L g/dL
(33.0-37.0)
RDW 15.5 H %
(11.5-14.5)
Absolute Eos (auto) 0.9 H 10^3/uL
(0-0.7)
Eosinophils % 9.7 H %
(0-6)
BUN 19 H mg/dl
(7-17)
03/30/25 21:00
03/30/25 21:00
Vital Signs
Initial and Last Documented VS:
Initial Vital Signs
Temp Pulse Resp BP Pulse Ox
98.5 F 125 20 121/81 97
03/30/25 20:09 03/30/25 20:09 03/30/25 20:09 03/30/25 20:09 03/30/25 20:09
Last Documented Vital Signs
Temp Pulse Resp BP Pulse Ox
98.5 F 125 20 103/72 97
03/30/25 20:09 03/30/25 20:09 03/30/25 20:09 03/30/25 21:00 03/30/25 21:48
MDM/Problems Addressed
MDM/Problems Addressed:
I contacted the patient's outreach professional, spoke w/ double end tenon operator Dr Billy, who informing that the recent outpatient panoramic imaging performed did show periapical lucencies however this is anticipated after root canals and will likely be persistent for
several weeks. Informs me that there is no imaging that can be obtained to rule in or rule out infection however states that if there is no visible infection on clinical exam then there is no indication for antibiotics and from her standpoint she
would recommend discontinuing these due to GI side effects. I then reviewed the case with infectious disease on-call who agrees with the assessment that if no visible site of infection there is no need for oral antibiotics. I discussed these finds
with the patient who is quite insistent that she be admitted for IV antibiotics or else 'she will lose her tooth'. She is quite insistent that her pain is litigation claim representative of an infection and demands that she be admitted for IV antibiotics. At this
time I see no medical indication for this given her lack of fever, leukocytosis, or visible signs of infection intraorally, particular given lack of cervical adenopathy. Do not see any indication for repeat imaging particular given my discussion
with the patient's outreach professional. Patient will be discharged home and advised to discontinue azithromycin
*Pulse Oximetry
SaO2: 97
Oxygen Mode of Delivery: Room air
Patient hypoxic: no
*Critical Care Note
Total Time (30-74mins, 75-104mins- exclusive of procedures): Not Applicable
ED Attending Note
-
Portions of this chart may have been created with voice recognition software.� Occasional wrong word or��sound alike� substitutions may have occurred due to the inherent limitations of voice recognition software.
Discharge Plan
Departure
Patient Disposition: Home (Routine Discharge)
Date of Disposition: 03/30/25
Time of Disposition: 21:48
Patient with high blood pressure during this ER visit?: No
Discharge Problem:
Pain, dental
Instructions: Dental Pain (DC)
Prescriptions:
No Action
oxycodone 10 mg Tablet
10 mg PO QID@08,12,17,21
clonazepam 1 mg Tablet
1 mg PO BID@1130,2300
fexofenadine 180 mg Tablet
360 mg PO HS
acetaminophen [Tylenol Extra Strength] 500 mg Tablet
1,000 mg PO Q6HPRN PRN (Reason: mild pain)
famotidine [Pepcid] 20 mg Tablet
40 mg PO HS
ascorbic acid (vitamin C) [Vitamin C] 500 mg Tablet
500 mg PO BID
infliximab [Remicade] 100 mg Recon Soln
7.5 mg IV Q6W
Rx Instructions:
7.5 mg/kg
gabapentin 300 mg Capsule
300 mg PO QID@,,,
hydroxyzine pamoate 25 mg capsule
25 mg PO QID@,,,
duloxetine [Cymbalta] 30 mg Capsule,Delayed Release(Dr/Ec)
30 mg PO DAILY@0800
Rx Instructions:
take with 60mg
duloxetine [Cymbalta] 60 mg Capsule,Delayed Release(Dr/Ec)
60 mg PO DAILY@0800
Rx Instructions:
take with 30mg
melatonin 10 mg Tablet
10 mg PO HS@2300
oxycodone [OxyContin] 10 mg Tablet,Oral Only,Ext.Rel.12 Hr
10 mg PO HS@2300
vitamin A 3,000 mcg (10,000 unit) Capsule
3,000 mcg PO HS
therapeutic multivitamin Tablet
1 tab PO HS
hydromorphone 4 mg Tablet
4 mg PO Q4HPRN PRN (Reason: severe breakthrough pain)
Visbiome 112.5 billion cell capsule
2 cap PO DAILY Qty: 30 0RF
oxycodone 10 mg Tablet
10 mg PO HSPRN PRN (Reason: severe pain)
polyethylene glycol 3350 [Miralax] 17 gram Powder In Packet
17 g PO DAILYPRN PRN (Reason: constipation)
docusate sodium 100 mg Tablet
300 mg PO DAILYPRN PRN (Reason: constipation)
triamcinolone acetonide 0.1 % cream
1 applic TOPICAL BIDPRN PRN (Reason: rash)
Rx Instructions:
trunk
bisacodyl [Dulcolax (bisacodyl)] 5 mg Tablet,Delayed Release (Dr/Ec)
5 mg PO DAILYPRN PRN (Reason: constipation)
clindamycin in 5 % dextrose 600 mg/50 mL Piggyback
600 mg IV Q8H 14 Days Qty: 42 0RF
clindamycin HCl 300 mg capsule
600 mg PO TID Qty: 16 0RF
sucralfate [Carafate] 1 gram tablet
See Rx Instructions .ROUTE .COMPLEX Qty: 30 0RF
Rx Instructions:
1 g orally ;Take 1 tablet PO 1hr before each meal and 1 tablet 1 hr prior to bed
Referrals:
Nadege Dyson PA [Family Provider, Family Practice]
Activity Restrictions/Additional Instructions:
There is no evidence of tooth infection today
Please stop the azithromycin
Interventions
Interventions:
*Risk Screen - Suicide Last Done: 03/30/25 20:09
*General Assessment Last Done: 03/30/25 20:09
*Neglect/Abuse Screening Last Done: 03/30/25 20:09
*ED- Fall Risk Assessment Last Done: 03/30/25 20:40
*ED COVID-19 Vaccine History Last Done: 03/30/25 20:40
*ED Influenza Vaccine History Last Done: 03/30/25 20:40
Discharge Date and Time
Print Language: CZECH
== END 2025-03-30 23:29 | disposition home or self-care (01) ==
LOC: EMR 20:06
PROVIDERS: Physician Assistant; EMERGENCY PHYSICIAN Student in an Organized Health Care Education/Training Program; FAMILY PHYSICIAN Physician Assistant Medical
DX: K08.89 Other specified disorders of teeth and supporting structures (principal); K50.90 Crohn's disease, unspecified, without complications; K90.0 Celiac disease; K86.81 Exocrine pancreatic insufficiency; G89.4 Chronic pain syndrome; F11.20 Opioid dependence, uncomplicated; F42.9 Obsessive-compulsive disorder, unspecified; F41.9 Anxiety disorder, unspecified; Z88.9 Allergy status to unspecified drugs, medicaments and biological substances
CPT/HCPCS: 99283; 80053; 85025

== ENCOUNTER 2025-04-20 06:35 | Day surgery (SDC) | payer OTHER, SELFPAY | END 2025-04-20 14:29 | disposition home or self-care (01) | LOC: GI 06:35 | PROVIDERS: ATTENDING PHYSICIAN Internal Medicine Gastroenterology; FAMILY PHYSICIAN Physician Assistant Medical | DX: K50.80 Crohn's disease of both small and large intestine without complications (principal); R10.13 Epigastric pain; K31.89 Other diseases of stomach and duodenum; K52.89 Other specified noninfective gastroenteritis and colitis; B37.81 Candidal esophagitis | CPT/HCPCS: 45380; 43239; 88305; 88312; 88342 ==

== ENCOUNTER 2025-04-26 14:22 | Emergency (ER) | payer OTHER, SELFPAY ==
[2025-04-26] VITALS (7 sets, daily range): BP systolic 91–128; BP diastolic 56–81; BMI 28.2
--- NOTE | 2025-04-26 15:05 | ED.GENMED ---
History of Present Illness
General
Chief Complaint: Dizziness
Source: patient
Time Seen by Provider: 04/26/25 14:51
History of Present Illness
History of Present Illness:
30-year-old female presents emergency room complaining of dizziness. Patient states that she feels like she is lightheaded and dizzy when standing and it feels worse when she stands up. She measured her heart rate both laying and standing and
noted that it went up to the 130s when she was standing. Patient has had a prolonged amount of dental work as well as a recent colonoscopy. She feels like she has been taking an adequate oral intake. No abdominal pain. No chest pain. No
shortness of breath.
Past History
Past History
ED Past Medical History: Other (Crohn's disease, celiac, IBS, anxiety), Other (Recurrent dental infections/facial cellulitis-PICC line in place. She is scheduled) and Other (Chronic pain syndrome-narcotic dependent)
ED Past Surgical History: Orthopedic and Other (Bowel surgery)
Social History
Tobacco: Non-smoker
Alcohol: Occasional
Drug: None
Personal: Single (Engage)
Living: with family
Employment: Not employed
Family History
Family History: Other (her dads mother had Juvenile RA, mother has palpitations)
Phy Exam
Physical Exam
Physical Exam:
General: Awake, Alert, Oriented X3. No acute distress.
Vitals: unremarkable
Head: Atraumatic
Eyes: Pupils equal, EOMI
Throat: Airway intact, no exudates
Neck: Trachea midline
Lungs: Clear and equal b/l
Heart: Regular rate, no murmurs
Abd: Soft, Nontender, No pulsatile mass
Neuro: Nonfocal
Skin: Warm, dry, no rash
Extremities: pulses equal b/l, no edema
Course
Orders/Labs/Results
Orders:
Orders
04/26/25 15:04
0.9% Sodium Chloride 1000 ml [Nss] 1,000 ml IV BOLUS
04/26/25 15:05
Test Result ONCE
04/26/25 15:07
Electrocardiogram (*1) Urgent
Reason for Study: Palpitations
EKG- Treatment ONCE
04/26/25 15:14
Basic Metabolic Panel Urgent
COVID-19 Antigen Urgent
Source: Nasal Swab
Complete Blood Count/With Diff Urgent
HCG, Serum Qualitative Screen Urgent
Urinalysis Reflex To Culture Urgent
Date Specimen was Collected: 04/26/25
Time Specimen was Collected: 15:06
Influenza A+B Rapid Molecular Urgent
DESIRE Source: Nasal Swab
Specimen Description:
Abnormal Lab Results
04/26/25
15:14
RBC 4.19 L 10^6/uL
(4.20-5.40)
Hgb 11.0 L g/dL
(12.0-16.0)
Hct 32.5 L %
(37.0-47.0)
MCV 77.6 L fL
(81.0-99.0)
MCH 26.3 L pg
(27.0-31.0)
RDW 15.8 H %
(11.5-14.5)
MPV 10.5 H fL
(7.4-10.4)
Neutrophils % 27.6 L %
(42.2-75.2)
Lymphocytes % 55.8 H %
(20.5-51.1)
Eosinophils % 7.4 H %
(0-6)
Glucose 109 H mg/dl
(70-99)
04/26/25 15:14
04/26/25 15:14
Vital Signs
Initial and Last Documented VS:
Initial Vital Signs
Temp Pulse Resp BP Pulse Ox
98.9 F 71 16 128/81 98
04/26/25 14:25 04/26/25 14:25 04/26/25 14:25 04/26/25 14:25 04/26/25 14:25
Last Documented Vital Signs
Temp Pulse Resp BP Pulse Ox
98.2 F 84 16 101/67 100
04/26/25 17:53 04/26/25 17:53 04/26/25 17:53 04/26/25 17:53 04/26/25 17:53
MDM/Problems Addressed
Differential Diagnosis Includes:
Dehydration, electrolyte abnormality, dysrhythmia
MDM/Problems Addressed:
Patient presents with dizziness. Send recent colonoscopy followed by extensive dental work. Testing here shows normal electrolytes, minimal anemia. EKG shows no acute abnormality. Patient feels better after IV fluid. She ambulated without
difficulty
*Pulse Oximetry
SaO2: 98
Oxygen Mode of Delivery: Room air
Patient hypoxic: no
*EKG
Interpreted by ED Provider?: Yes
Heart Rate: 78
Rate: normal
Rhythm: sinus
[place]: normal axis
Interval: normal interval
QRS Pattern: normal QRS
Ischemia: no ischemia
*Graphics Software Engineer Interpretation
Rate: normal
Interpretation: normal
Rhythm: sinus
*Critical Care Note
Total Time (30-74mins, 75-104mins- exclusive of procedures): Not Applicable
ED Attending Note
-
Portions of this chart may have been created with voice recognition software.� Occasional wrong word or��sound alike� substitutions may have occurred due to the inherent limitations of voice recognition software.
Discharge Plan
Departure
Patient Disposition: Home (Routine Discharge)
Date of Disposition: 04/26/25
Time of Disposition: 17:45
Patient with high blood pressure during this ER visit?: No
Condition: Good
Discharge Problem:
Dehydration, Dizziness
Instructions: Dehydration in adults - ED (DC), Dizziness
Prescriptions:
No Action
oxycodone 10 mg Tablet
10 mg PO QID@08,12,17,21
clonazepam 1 mg Tablet
1 mg PO BID@1130,2300
fexofenadine 180 mg Tablet
360 mg PO HS
acetaminophen [Tylenol Extra Strength] 500 mg Tablet
1,000 mg PO Q6HPRN PRN (Reason: mild pain)
famotidine [Pepcid] 20 mg Tablet
40 mg PO HS
ascorbic acid (vitamin C) [Vitamin C] 500 mg Tablet
500 mg PO BID
infliximab [Remicade] 100 mg Recon Soln
7.5 mg IV Q6W
Rx Instructions:
7.5 mg/kg
gabapentin 300 mg Capsule
300 mg PO QID@08,,18,
hydroxyzine pamoate 25 mg capsule
25 mg PO QID@,,,
duloxetine [Cymbalta] 30 mg Capsule,Delayed Release(Dr/Ec)
30 mg PO DAILY@0800
Rx Instructions:
take with 60mg
duloxetine [Cymbalta] 60 mg Capsule,Delayed Release(Dr/Ec)
60 mg PO DAILY@0800
Rx Instructions:
take with 30mg
melatonin 10 mg Tablet
10 mg PO HS@2300
oxycodone [OxyContin] 10 mg Tablet,Oral Only,Ext.Rel.12 Hr
10 mg PO HS@2300
vitamin A 3,000 mcg (10,000 unit) Capsule
3,000 mcg PO HS
therapeutic multivitamin Tablet
1 tab PO HS
hydromorphone 4 mg Tablet
4 mg PO Q4HPRN PRN (Reason: severe breakthrough pain)
Visbiome 112.5 billion cell capsule
2 cap PO DAILY Qty: 30 0RF
oxycodone 10 mg Tablet
10 mg PO HSPRN PRN (Reason: severe pain)
polyethylene glycol 3350 [Miralax] 17 gram Powder In Packet
17 g PO DAILYPRN PRN (Reason: constipation)
docusate sodium 100 mg Tablet
300 mg PO DAILYPRN PRN (Reason: constipation)
triamcinolone acetonide 0.1 % cream
1 applic TOPICAL BIDPRN PRN (Reason: rash)
Rx Instructions:
trunk
bisacodyl [Dulcolax (bisacodyl)] 5 mg Tablet,Delayed Release (Dr/Ec)
5 mg PO DAILYPRN PRN (Reason: constipation)
clindamycin in 5 % dextrose 600 mg/50 mL Piggyback
600 mg IV Q8H 14 Days Qty: 42 0RF
clindamycin HCl 300 mg capsule
600 mg PO TID Qty: 16 0RF
sucralfate [Carafate] 1 gram tablet
See Rx Instructions .ROUTE .COMPLEX Qty: 30 0RF
Rx Instructions:
1 g orally ;Take 1 tablet PO 1hr before each meal and 1 tablet 1 hr prior to bed
Interventions
Interventions:
*Risk Screen - Suicide Last Done: 04/26/25 14:25
*General Assessment Last Done: 04/26/25 14:25
*Neglect/Abuse Screening Last Done: 04/26/25 14:25
*ED- Fall Risk Assessment Last Done: 04/26/25 14:25
*ED COVID-19 Vaccine History Last Done: 04/26/25 14:25
*ED Influenza Vaccine History Last Done: 04/26/25 14:25
*Nursing Disposition Last Done: 04/26/25 17:53
ED- Neurological Assessment Last Done: 04/26/25 15:35
ED- Cardiac Assessment Last Done: 04/26/25 17:53
ED Swallowing Screen Last Done: 04/26/25 15:35
Discharge Date and Time
Discharge Date/Time: 04/26/25 17:55
Print Language: HUNGARIAN
[2025-04-26] MEDS: NSS 1000 IV (15:11)
[2025-04-26 15:33] LABS: Hematocrit 32.5 % (37.0-47.0); Hemoglobin 11.0 g/dL (12.0-16.0); Mean Corp Hgb Conc. 33.8 g/dL (33.0-37.0); Mean Corpuscular Volume 77.6 fL (81.0-99.0); Platelet Count 216 10^3/uL (130-400); Red Cell Dist. Width 15.8 % (11.5-14.5)
[2025-04-26 15:41] LABS: HCG, Serum Qualitative Screen Negative
[2025-04-26 15:47] LABS: Blood Urea Nitrogen 13 mg/dl (7-17); Calcium 8.4 mg/dl (8.4-10.2); Carbon Dioxide 28 mmol/L (22-30); Chloride 102 mmol/L (98-107); Estimated Creatinine Clearance 103 ml/min; Glucose 109 mg/dl (70-99); Potassium 3.9 mmol/L (3.5-5.1); Sodium 137 mmol/L (135-145); eGFR > 60.00
[2025-04-26 15:55] LABS: Urine Character Clear (Clear)
[2025-04-26 15:56] LABS: COVID-19 Antigen Negative (Negative)
[2025-04-26 16:12] LABS: Nucleated Red Blood Cells % 0 %
== END 2025-04-26 17:55 | disposition home or self-care (01) ==
LOC: EMR 14:22
PROVIDERS: EMERGENCY PHYSICIAN Emergency Medicine; FAMILY PHYSICIAN Physician Assistant Medical
DX: E86.0 Dehydration (principal); D64.9 Anemia, unspecified; G89.4 Chronic pain syndrome; Z79.891 Long term (current) use of opiate analgesic; K50.90 Crohn's disease, unspecified, without complications; K90.0 Celiac disease; K86.81 Exocrine pancreatic insufficiency; F41.9 Anxiety disorder, unspecified
CPT/HCPCS: 99284; 96360; 80048; 81003; 84703; 85025; 87502; 87811; 93005

== ENCOUNTER 2025-05-10 13:26 | Emergency (ER) | payer OTHER, SELFPAY ==
[2025-05-10 13:30] VITALS: BP 122/83
[2025-05-10 13:54] LABS: Hematocrit 35.9 % (37.0-47.0); Hemoglobin 12.1 g/dL (12.0-16.0); Mean Corp Hgb Conc. 33.7 g/dL (33.0-37.0); Mean Corpuscular Volume 77.5 fL (81.0-99.0); Nucleated Red Blood Cells % 0 %; Platelet Count 270 10^3/uL (130-400); Red Cell Dist. Width 16.2 % (11.5-14.5)
[2025-05-10 14:04] LABS: HCG, Serum Qualitative Screen Negative
[2025-05-10 14:14] LABS: ALT (SGPT) 21 U/L (0-35); AST (SGOT) 23 U/L (14-36); Albumin 4.3 g/dl (3.5-5.0); Alkaline Phosphatase 76 U/L (38-126); Blood Urea Nitrogen 9 mg/dl (7-17); Calcium 9.2 mg/dl (8.4-10.2); Carbon Dioxide 29 mmol/L (22-30); Chloride 101 mmol/L (98-107); Glucose 101 mg/dl (70-99); Potassium 4.0 mmol/L (3.5-5.1); Sodium 136 mmol/L (135-145); Total Protein 7.9 g/dl (6.3-8.2); eGFR > 60.00
--- NOTE | 2025-05-10 14:24 | ED.GENMED ---
History of Present Illness
General
Chief Complaint: Fever
Source: patient
Exam Limitations: none
Time Seen by Provider: 05/10/25 14:08
Nursing documentation reviewed up to this point in time: agreed with
History of Present Illness
History of Present Illness:
Patient to emergency department with complaint of severe pain to left lower jaw. She reports she had a root canal procedure performed on Wednesday on the left. States Wednesday and Wednesday she felt well however began to experience increasing pain on
Wednesday. She spoke with her corset fitter who prescribed azithromycin. She is on day #2 of this medication does not feel any improvement. Spoke with corset fitter again and states he told her that there was nothing more that he could do for her and
that she would need to come to the emergency department. She reports temperature at home of 99 degrees. States this is a fever for her and that she does not run high numbers. She was reports feeling that there is swelling to her face and neck.
Came to the emergency department accompanied by her father.
Past History
Past History
ED Past Medical History: Other (Crohn's disease, celiac, IBS, anxiety), Other (Recurrent dental infections/facial cellulitis-PICC line in place. She is scheduled) and Other (Chronic pain syndrome-narcotic dependent)
ED Past Surgical History: Orthopedic and Other (Bowel surgery)
Social History
Tobacco: Non-smoker
Alcohol: Occasional
Drug: None
Personal: Single (Engage)
Living: with family
Employment: Not employed
Family History
Family History: Other (her dads mother had Juvenile RA, mother has palpitations)
Phy Exam
General Physical Exam
General Presentation: well appearing and mild distress
General age: appears stated age
General Skin: warm and dry
General Habitus: normal
ENT Exam
ENT Exam: EOMI, TM's normal, pharynx normal, neck supple, swallowing well and other (No gingival swelling, no evidence of abscess. No trismus. No facial erythema)
Musculoskeletal Exam
Musculoskeletal Exam: full ROM
Skin Exam
Skin Exam: normal color, warm/dry and no rash
Psychiatric Exam
Psychiatric Exam: normal mood/affect
Course
Orders/Labs/Results
Orders:
Orders
05/10/25 13:35
Test Result ONCE
05/10/25 13:41
Complete Blood Count/With Diff Urgent
Comprehensive Metabolic Panel Urgent
HCG, Serum Qualitative Screen Urgent
Comment: Notify provider if positive test present
Lactic Acid Q4H
Comment: ON ICE, CANCEL 2ND ORDER IF FIRST LACTIC ACID LEVEL <2
05/10/25 13:42
Blood Culture Q20M
DESIRE Source: Blood/Venous
Specimen Description:
Comment: Urgent from separate sites. If patient screens positive for possible sepsis
05/10/25 14:20
HYDROmorphone [Dilaudid] 1 mg IV NOW STA
Ondansetron Injectable [Zofran] 4 mg IV NOW STA
05/10/25 14:21
0.9% Sodium Chloride 1000 ml [Nss] 1,000 ml IV BOLUS
05/10/25 14:[address] [CT Neck With Iv Contrast] Urgent
Comment:
Reason For Exam: left face neck swelling/pain, root canal Mon
05/10/25 14:49
Blood Culture Q20M
DESIRE Source: Blood/Venous
Specimen Description:
Comment: Urgent from separate sites. If patient screens positive for possible sepsis
Abnormal Lab Results
05/10/25
13:41
Hct 35.9 L %
(37.0-47.0)
MCV 77.5 L fL
(81.0-99.0)
MCH 26.1 L pg
(27.0-31.0)
RDW 16.2 H %
(11.5-14.5)
Absolute Monos (auto) 0.7 H 10^3/uL
(0.1-0.6)
Monocytes % 9.6 H %
(1.7-9.3)
Glucose 101 H mg/dl
(70-99)
05/10/25 13:41
05/10/25 13:41
Vital Signs
Initial and Last Documented VS:
Initial Vital Signs
Temp Pulse Resp BP Pulse Ox
98.4 F 128 18 122/83 95
05/10/25 13:30 05/10/25 13:30 05/10/25 13:30 05/10/25 13:30 05/10/25 13:30
Last Documented Vital Signs
Temp Pulse Resp BP Pulse Ox
98.6 F 86 20 107/71 100
05/10/25 14:54 05/10/25 14:54 05/10/25 14:54 05/10/25 14:54 05/10/25 14:54
*Pulse Oximetry
SaO2: 95
Oxygen Mode of Delivery: Room air
Patient hypoxic: no
*Critical Care Note
Total Time (30-74mins, 75-104mins- exclusive of procedures): Not Applicable
Update Note
Update Note:
Patient to the emergency department with complaint of left lower jaw pain, left facial and neck swelling. She had nuclear performed on Wednesday to her left lower molar. She was placed on azithromycin yesterday does not notice any improvement. She
feels that she has bacterial infection and will require IV antibiotics. Resulted labs reviewed WBC and lactic are both normal. Discussed this with her she states that her WBC never elevates and that bacterial infection for her cannot be ruled out
as her blood. On exam she has mild swelling to left lower abdomen. No visible abscess noted at lower site. CT with contrast was ordered. She was given IV fluids, and Dilaudid for pain. She has a history of chronic pain. Pain medications
include oxycodone, OxyContin, p.o. Dilaudid.
CT report reviewed, no acute findings to explain her discomfort. No collection noted. Case discussed with patient. She requested that I consult with ID. Dr. Morse consulted via [place] text lab and CT findings were discussed with her. She
feels that without any infectious evidence on exam or CT, patient can be discharged home. I also spoke with her corset fitter Dr. Jann Nur. Lab results physical exam results and CT results were discussed with him. He also agrees that since no
infectious process can be identified patient can be safely discharged home and will follow-up in office. Discussed plan with patient. She also reports that she had an endoscopy colonoscopy performed last week. She was notified today by GI that
yeast was detected in her esophagus. A prescription for nystatin swish and swallow was sent to her pharmacy. She now is wondering if this is the cause of her discomfort. I have referred her back to her GI provider. There is no evidence of thrush
on physical exam. She is swallowing without difficulty. Patient is discharged home will follow-up with corset fitter as discussed. She was given instructions on signs and symptoms to return to the emergency department and she is agreeable to this
plan
ED Attending Note
-
Portions of this chart may have been created with voice recognition software.� Occasional wrong word or��sound alike� substitutions may have occurred due to the inherent limitations of voice recognition software.
Discharge Plan
Departure
Patient Disposition: Home (Routine Discharge)
Date of Disposition: 05/10/25
Time of Disposition: 16:10
Patient with high blood pressure during this ER visit?: No
Condition: Good
Covid-19: Not Applicable
Discharge Problem:
Jaw pain
Instructions: Managing pain after surgery
Prescriptions:
No Action
oxycodone 10 mg Tablet
10 mg PO QID@08,12,17,21
clonazepam 1 mg Tablet
1 mg PO BID@1130,2300
fexofenadine 180 mg Tablet
360 mg PO HS
acetaminophen [Tylenol Extra Strength] 500 mg Tablet
1,000 mg PO Q6HPRN PRN (Reason: mild pain)
famotidine [Pepcid] 20 mg Tablet
40 mg PO HS
ascorbic acid (vitamin C) [Vitamin C] 500 mg Tablet
500 mg PO BID
infliximab [Remicade] 100 mg Recon Soln
7.5 mg IV Q6W
Rx Instructions:
7.5 mg/kg
gabapentin 300 mg Capsule
300 mg PO QID@,,,
hydroxyzine pamoate 25 mg capsule
25 mg PO QID@,,,
duloxetine [Cymbalta] 30 mg Capsule,Delayed Release(Dr/Ec)
30 mg PO DAILY@0800
Rx Instructions:
take with 60mg
duloxetine [Cymbalta] 60 mg Capsule,Delayed Release(Dr/Ec)
60 mg PO DAILY@0800
Rx Instructions:
take with 30mg
melatonin 10 mg Tablet
10 mg PO HS@2300
oxycodone [OxyContin] 10 mg Tablet,Oral Only,Ext.Rel.12 Hr
10 mg PO HS@2300
vitamin A 3,000 mcg (10,000 unit) Capsule
3,000 mcg PO HS
therapeutic multivitamin Tablet
1 tab PO HS
hydromorphone 4 mg Tablet
4 mg PO Q4HPRN PRN (Reason: severe breakthrough pain)
Visbiome 112.5 billion cell capsule
2 cap PO DAILY Qty: 30 0RF
oxycodone 10 mg Tablet
10 mg PO HSPRN PRN (Reason: severe pain)
polyethylene glycol 3350 [Miralax] 17 gram Powder In Packet
17 g PO DAILYPRN PRN (Reason: constipation)
docusate sodium 100 mg Tablet
300 mg PO DAILYPRN PRN (Reason: constipation)
triamcinolone acetonide 0.1 % cream
1 applic TOPICAL BIDPRN PRN (Reason: rash)
Rx Instructions:
trunk
bisacodyl [Dulcolax (bisacodyl)] 5 mg Tablet,Delayed Release (Dr/Ec)
5 mg PO DAILYPRN PRN (Reason: constipation)
clindamycin in 5 % dextrose 600 mg/50 mL Piggyback
600 mg IV Q8H 14 Days Qty: 42 0RF
clindamycin HCl 300 mg capsule
600 mg PO TID Qty: 16 0RF
sucralfate [Carafate] 1 gram tablet
See Rx Instructions .ROUTE .COMPLEX Qty: 30 0RF
Rx Instructions:
1 g orally ;Take 1 tablet PO 1hr before each meal and 1 tablet 1 hr prior to bed
Referrals:
Nadege Dyson PA [Family Provider, Family Practice]
Activity Restrictions/Additional Instructions:
Follow up with your corset fitter as scheduled.
Interventions
Interventions:
*Risk Screen - Suicide Last Done: 05/10/25 13:30
*General Assessment Last Done: 05/10/25 13:30
*Neglect/Abuse Screening Last Done: 05/10/25 14:54
*ED- Fall Risk Assessment Last Done: 05/10/25 14:54
*ED COVID-19 Vaccine History Last Done: 05/10/25 14:54
*ED Influenza Vaccine History Last Done: 05/10/25 14:54
ED- Neurological Assessment Last Done: 05/10/25 14:54
ED-Skin Assessment Last Done: 05/10/25 14:54
Discharge Date and Time
Print Language: FRISIAN
[2025-05-10 14:45] VITALS: BMI 26.1
[2025-05-10] MEDS: ZOFRAN 4 MG IV (14:49)
[2025-05-10] MEDS: DILAUDID 1 MG IV (14:49)
[2025-05-10] MEDS: NSS 1000 IV (14:50)
[2025-05-10 14:54] VITALS: BP 107/71
--- NOTE | 2025-05-10 15:41 | EDRN ---
Eliza Do DATABASE SPECIALIST currently at the pts bedside
[2025-05-10 16:21] VITALS: BP 126/71
== END 2025-05-10 16:30 | disposition home or self-care (01) ==
LOC: EMR 13:26
PROVIDERS: EMERGENCY PHYSICIAN Emergency Medicine; FAMILY PHYSICIAN Physician Assistant Medical
DX: R68.84 Jaw pain (principal); K50.90 Crohn's disease, unspecified, without complications; K90.0 Celiac disease; K86.81 Exocrine pancreatic insufficiency; F41.9 Anxiety disorder, unspecified; G89.4 Chronic pain syndrome; Z79.891 Long term (current) use of opiate analgesic
CPT/HCPCS: 99284; 96374; 96375; 96361; 70491; 80053; 83605; 84703; 85025; 87040; Q9967

== ENCOUNTER 2025-05-23 06:27 | Outpatient (RCR) | payer OTHER, SELFPAY | END 2025-05-23 23:59 | disposition home or self-care (01) | LOC: RPT 06:27 | PROVIDERS: ATTENDING PHYSICIAN Orthopaedic Surgery; FAMILY PHYSICIAN Physician Assistant Medical | DX: Z47.89 Encounter for other orthopedic aftercare (principal); S86.011D Strain of right Achilles tendon, subsequent encounter; Z73.6 Limitation of activities due to disability; M62.81 Muscle weakness (generalized); R26.89 Other abnormalities of gait and mobility | CPT/HCPCS: 97010; 97110; 97112; 97140; 97162 ==

== ENCOUNTER 2025-06-13 07:20 | Outpatient (RCR) | payer OTHER, SELFPAY | END 2025-06-18 23:59 | disposition home or self-care (01) | LOC: RPT 07:20 | PROVIDERS: ATTENDING PHYSICIAN Orthopaedic Surgery; FAMILY PHYSICIAN Physician Assistant Medical | DX: Z47.89 Encounter for other orthopedic aftercare (principal); S86.011D Strain of right Achilles tendon, subsequent encounter; Z73.6 Limitation of activities due to disability; M62.81 Muscle weakness (generalized); R26.89 Other abnormalities of gait and mobility | CPT/HCPCS: 97110; 97140 ==

== ENCOUNTER 2025-06-17 01:01 | Emergency (ER) | payer OTHER, SELFPAY ==
[2025-06-17 01:26] VITALS: BP 126/95
[2025-06-17 02:07] LABS: Hematocrit 34.0 % (37.0-47.0); Hemoglobin 11.2 g/dL (12.0-16.0); Mean Corp Hgb Conc. 32.9 g/dL (33.0-37.0); Mean Corpuscular Volume 75.7 fL (81.0-99.0); Nucleated Red Blood Cells % 0 %; Platelet Count 234 10^3/uL (130-400); Red Cell Dist. Width 16.2 % (11.5-14.5)
[2025-06-17 02:29] LABS: ALT (SGPT) 21 U/L (0-35); AST (SGOT) 29 U/L (14-36); Albumin 4.0 g/dl (3.5-5.0); Alkaline Phosphatase 65 U/L (38-126); Blood Urea Nitrogen 8 mg/dl (7-17); Calcium 8.7 mg/dl (8.4-10.2); Carbon Dioxide 24 mmol/L (22-30); Chloride 105 mmol/L (98-107); Glucose 93 mg/dl (70-99); Magnesium 2.2 mg/dl (1.6-2.3); Potassium 3.7 mmol/L (3.5-5.1); Sodium 136 mmol/L (135-145); Total Protein 7.6 g/dl (6.3-8.2); eGFR > 60.00
[2025-06-17 03:10] VITALS: BP 119/89
[2025-06-17 05:26] LABS: COVID-19 Antigen Negative (Negative)
--- NOTE | 2025-06-17 05:33 | ED.GENMED ---
History of Present Illness
General
Chief Complaint: Allergic Reaction
Source: patient, previous radiology exam and previous hospital records
Exam Limitations: none
Time Seen by Provider: 06/17/25 05:18
Nursing documentation reviewed up to this point in time: agreed with
History of Present Illness
History of Present Illness:
She is a 30-year-old female with somewhat extensive past medical history including Crohn's disease, irritable bowel syndrome, anxiety, obsessive-compulsive disorder, undifferentiated connective tissue disorder, recurrent dental infections with
multiple recurrent dental procedures, chronic pain syndrome, narcotic dependent, chronic constipation.
She presents with symptoms following adjustments to her bowel regimen. The patient has been taking magnesium citrate 500 mg daily for constipation, as advised by her medical driver (GI). On , following her regular Remicade infusion and a
GI consultation, she increased the magnesium citrate dose to 1000 mg every other day, resulting in extreme fatigue by Wednesday. Despite typically experiencing fatigue post-infusion, she noted it was usually only pronounced with dose adjustments, which
had not occurred in over a year.
She continued with 500 mg of magnesium citrate and Miralax on Wednesday, allowing for two minor bowel movements and difficulty sleeping. On Wednesday, after taking 1000 mg of magnesium citrate around 10 a.m. and Miralax, she noted negligible bowel
outputs and developed symptoms of increased heart rate, confusion, dizziness, and severe shakiness. The patients heart rate escalated to 130s, and blood pressure was variable, with the lowest reading being slightly above 90/60 mmHg.
Notably, the patient had an esophageal yeast infection treated with nystatin several weeks prior and recently underwent dental surgery for an infected root canal, completing a course of antibiotics/Zithromax by the preceding Wednesday.
She has not had a fever. No nausea no vomiting. Appetite has been good.
She has been evaluated in this ED on several previous occasions for similar complaints of lightheadedness, sporadic tachycardia. There has been no syncope nor fall.
Past History
Past History
ED Past Medical History: Other (Crohn's disease, celiac, IBS, anxiety), Other (Recurrent dental infections/facial cellulitis-PICC line in place. She is scheduled) and Other (Chronic pain syndrome-narcotic dependent)
ED Past Surgical History: Orthopedic and Other (Bowel surgery)
Social History
Tobacco: Non-smoker
Alcohol: Occasional
Drug: None
Personal: Single (Engage)
Living: with family
Employment: Not employed
Family History
Family History: Other (her dads mother had Juvenile RA, mother has palpitations)
Phy Exam
Physical Exam
Physical Exam:
GENERAL: 30-year-old female appears her stated age, awake and alert, pleasant, easily communicative and in no acute distress. is accompanying.
EYE: anicteric
NECK: Supple, nontender, no meningismus, no significant adenopathy.
ENT: Facemask in place.
CARDIAC: Regular rate and rhythm. no murmur.
LUNGS: Clear breath sounds bilaterally, no acute respiratory distress, no wheezes/rales/rhonchi
ABDOMEN: Soft, nondistended, without focal tenderness, normoactive BS.
NEUROLOGICAL: Alert and oriented x3, no focal neuro deficits. Gait is cedeno and steady.
SKIN: Warm and dry, normal color, skin intact. No rash.
MUSCULOSKELETAL: No C/C/E. peripheral pulses are full and equal b/l. No palpable tenderness.
PSYCH: Mildly anxious. Easily communicative.
Course
Orders/Labs/Results
Orders:
Orders
06/17/25 01:31
EKG [Electrocardiogram (*1)] Urgent
Reason for Study: Palpitations
EKG- Treatment ONCE
06/17/25 01:40
Complete Blood Count/With Diff Urgent
Comprehensive Metabolic Panel Urgent
Magnesium Urgent
06/17/25 04:42
COVID-19 Antigen Urgent
Source: Nasal Swab
Influenza A+B Rapid Molecular Urgent
DESIRE Source: Nasal Swab
Specimen Description:
Abnormal Lab Results
06/17/25
01:40
Hgb 11.2 L g/dL
(12.0-16.0)
Hct 34.0 L %
(37.0-47.0)
MCV 75.7 L fL
(81.0-99.0)
MCH 24.9 L pg
(27.0-31.0)
MCHC 32.9 L g/dL
(33.0-37.0)
RDW 16.2 H %
(11.5-14.5)
Absolute Lymphs (auto) 3.7 H 10^3/uL
(1.2-3.4)
Neutrophils % 27.3 L %
(42.2-75.2)
Lymphocytes % 59.1 H %
(20.5-51.1)
06/17/25 01:40
06/17/25 01:40
Vital Signs
Initial and Last Documented VS:
Initial Vital Signs
Temp Pulse Resp BP Pulse Ox
98 F 136 20 126/95 98
06/17/25 01:26 06/17/25 01:26 06/17/25 01:26 06/17/25 01:26 06/17/25 01:26
Last Documented Vital Signs
Temp Pulse Resp BP Pulse Ox
98 F 103 22 119/89 96
06/17/25 01:26 06/17/25 05:30 06/17/25 05:30 06/17/25 03:10 06/17/25 05:37
MDM/Problems Addressed
Differential Diagnosis Includes:
DIFFERENTIAL DIAGNOSIS
The Differential Diagnosis includes, in no particular order and is not limited to:
- Adverse reaction to increased dosage of magnesium citrate
- Electrolyte imbalance
- Crohns disease exacerbation
- Dehydration
- Remicade (infliximab) related side effects
- Medication-induced constipation
- Anxiety or panic-related symptoms
- Thyroid dysfunction
- Cardiac arrhythmias
- Gastroesophageal reflux disease (GERD) exacerbated by medication changes
MDM/Problems Addressed:
Potential adverse reaction to magnesium citrate.
Patient remains bright and alert, oriented x 3. No focal neurodeficits.
EKG shows mild sinus tachycardia otherwise unremarkable, similar and unchanged from previous.
Monitor shows normal sinus rhythm to mild sinus tachycardia. She remains hemodynamically stable. She remains afebrile.
Labs are all within normal limits including normal magnesium, normal electrolytes, normal renal function. Normal CBC.
Patient has been eating and drinking normally, has had no vomiting nor reported fever remains afebrile. With reassuring labs. Reassuring vital signs, no indication for IV fluids. Recommend she remain well-hydrated with oral hydration.
Symptoms could certainly be adverse reaction to magnesium citrate dose escalation thus recommend she resume 500 mg daily along with MiraLAX daily.
We did discuss various other medications for chronic constipation. Patient has trialed Linzess in the past with poor effects. She could also try Amitiza but recommend she discuss this further with her medical driver.
Will discharge to home with recommendation for follow-up with PCP as well as medical driver.
*Pulse Oximetry
SaO2: 96
Oxygen Mode of Delivery: Room air
Patient hypoxic: no
*EKG
Interpreted by ED Provider?: Yes
Interpretation: normal
Comparison EKG: no changes
Rate: tachycardiac
Rhythm: sinus
Gerton: normal axis
Interval: normal interval
QRS Pattern: normal QRS
Ischemia: no ischemia
*Special Equipment Technician Interpretation
Rate: normal
Interpretation: normal
Rhythm: sinus
*Critical Care Note
Total Time (30-74mins, 75-104mins- exclusive of procedures): Not Applicable
ED Attending Note
-
Portions of this chart may have been created with voice recognition software.� Occasional wrong word or��sound alike� substitutions may have occurred due to the inherent limitations of voice recognition software.
Discharge Plan
Departure
Patient Disposition: Home (Routine Discharge)
Date of Disposition: 06/17/25
Time of Disposition: 05:34
Patient with high blood pressure during this ER visit?: No
Condition: Good
Discharge Problem:
adverse reaction to magnesium citrate
Instructions: Adverse Drug Reactions, Adult (DC), Managing constipation from your medicines
Prescriptions:
No Action
oxycodone 10 mg Tablet
10 mg PO QID@08,12,17,21
clonazepam 1 mg Tablet
1 mg PO BID@1130,2300
fexofenadine 180 mg Tablet
360 mg PO HS
acetaminophen [Tylenol Extra Strength] 500 mg Tablet
1,000 mg PO Q6HPRN PRN (Reason: mild pain)
famotidine [Pepcid] 20 mg Tablet
40 mg PO HS
ascorbic acid (vitamin C) [Vitamin C] 500 mg Tablet
500 mg PO BID
infliximab [Remicade] 100 mg Recon Soln
7.5 mg IV Q6W
Rx Instructions:
7.5 mg/kg
gabapentin 300 mg Capsule
300 mg PO QID@,,,
hydroxyzine pamoate 25 mg capsule
25 mg PO QID@,,,
duloxetine [Cymbalta] 30 mg Capsule,Delayed Release(Dr/Ec)
30 mg PO DAILY@0800
Rx Instructions:
take with 60mg
duloxetine [Cymbalta] 60 mg Capsule,Delayed Release(Dr/Ec)
60 mg PO DAILY@0800
Rx Instructions:
take with 30mg
melatonin 10 mg Tablet
10 mg PO HS@2300
oxycodone [OxyContin] 10 mg Tablet,Oral Only,Ext.Rel.12 Hr
10 mg PO HS@2300
vitamin A 3,000 mcg (10,000 unit) Capsule
3,000 mcg PO HS
therapeutic multivitamin Tablet
1 tab PO HS
hydromorphone 4 mg Tablet
4 mg PO Q4HPRN PRN (Reason: severe breakthrough pain)
Visbiome 112.5 billion cell capsule
2 cap PO DAILY Qty: 30 0RF
oxycodone 10 mg Tablet
10 mg PO HSPRN PRN (Reason: severe pain)
polyethylene glycol 3350 [Miralax] 17 gram Powder In Packet
17 g PO DAILYPRN PRN (Reason: constipation)
docusate sodium 100 mg Tablet
300 mg PO DAILYPRN PRN (Reason: constipation)
triamcinolone acetonide 0.1 % cream
1 applic TOPICAL BIDPRN PRN (Reason: rash)
Rx Instructions:
trunk
bisacodyl [Dulcolax (bisacodyl)] 5 mg Tablet,Delayed Release (Dr/Ec)
5 mg PO DAILYPRN PRN (Reason: constipation)
clindamycin in 5 % dextrose 600 mg/50 mL Piggyback
600 mg IV Q8H 14 Days Qty: 42 0RF
clindamycin HCl 300 mg capsule
600 mg PO TID Qty: 16 0RF
sucralfate [Carafate] 1 gram tablet
See Rx Instructions .ROUTE .COMPLEX Qty: 30 0RF
Rx Instructions:
1 g orally ;Take 1 tablet PO 1hr before each meal and 1 tablet 1 hr prior to bed
Referrals:
Nadege Dyson PA [Family Provider, Family Practice]
Shante Garcia MD [Active, Gastroenterology] - Call in 1-3 days for appt
Interventions
Interventions:
*General Assessment Last Done: 06/17/25 01:26
*Neglect/Abuse Screening Last Done: 06/17/25 05:44
*ED COVID-19 Vaccine History Last Done: 06/17/25 01:26
*ED Influenza Vaccine History Last Done: 06/17/25 01:26
[facility] Fall Risk Assessment Tool Last Done: 06/17/25 04:45
*Risk Screen - Suicide (C-SSRS) Last Done: 06/17/25 01:26
*Nursing Disposition Last Done: 06/17/25 05:44
ED- Cardiac Assessment Last Done: 06/17/25 04:43
ED- Pulmonary Assessment Last Done: 06/17/25 04:43
ED-Skin Assessment Last Done: 06/17/25 04:43
Discharge Date and Time
Discharge Date/Time: 06/17/25 05:49
Print Language: BRUNEIAN
== END 2025-06-17 05:49 | disposition home or self-care (01) ==
LOC: EMR 01:01
PROVIDERS: EMERGENCY PHYSICIAN Emergency Medicine; FAMILY PHYSICIAN Physician Assistant Medical
DX: R42 Dizziness and giddiness (principal); R41.0 Disorientation, unspecified; T47.4X5A Adverse effect of other laxatives, initial encounter; X58.XXXA Exposure to other specified factors, initial encounter; G89.4 Chronic pain syndrome; F11.20 Opioid dependence, uncomplicated; Z79.620 Long term (current) use of immunosuppressive biologic; Z11.52 Encounter for screening for COVID-19
CPT/HCPCS: 99284; 80053; 83735; 85025; 87502; 87811; 93005